=== PATIENT | male | born 1945 | race Caucasian/White ===

== ENCOUNTER → 2020-09-16 14:32 | Outpatient (BNVA) | payer MEDICARE, SELFPAY | PROVIDERS: PCP Internal Medicine; Referring Provider Internal Medicine; Visit Provider Internal Medicine Cardiovascular Disease | DX: I25.10 Atherosclerotic heart disease of native coronary artery without angina pectoris (principal) | CPT/HCPCS: 99212 ==

== ENCOUNTER 2020-10-09 08:50 | Outpatient (REF) | payer MEDICARE, SELFPAY ==
[2020-10-09 10:01] LABS: Alanine Aminotransferase 17 U/L (0-40); Albumin Level 3.6 g/dL (3.5-5.0); Alkaline Phosphatase 126 U/L (39-117); Anion Gap 14 (12-20); Aspartate Amino Transferase 15 U/L (5-37); Bilirubin Total 0.5 mg/dL (0.0-1.0); Blood Urea Nitrogen 12 mg/dL (9-16); Calcium 8.3 mg/dL (8.4-10.2); Carbon Dioxide 30 mmol/L (22-29); Chloride 103 mmol/L (96-108); Estimated Glomerular Filt Rate > 60; Glucose Random 110 mg/dL (60-115); Potassium 4.5 mmol/l (3.3-5.1); Sodium 142 mmol/L (135-145); Total Protein 5.9 g/dL (6.5-8.0); Uric Acid 4.9 mg/dL (3.4-7.0)
== END 2020-10-09 08:51 | disposition home or self-care (01) ==
LOC: HO.LAB 08:50
PROVIDERS: PCP Internal Medicine; Visit Provider Internal Medicine
DX: J44.9 Chronic obstructive pulmonary disease, unspecified (principal); I25.10 Atherosclerotic heart disease of native coronary artery without angina pectoris; I10 Essential (primary) hypertension; M10.9 Gout, unspecified
CPT/HCPCS: 80053; 84550

== ENCOUNTER → 2020-12-16 15:03 | Outpatient (BNVA) | payer MEDICARE, SELFPAY | PROVIDERS: PCP Internal Medicine; Visit Provider Internal Medicine Cardiovascular Disease | DX: I25.118 Atherosclerotic heart disease of native coronary artery with other forms of angina pectoris (principal); E66.9 Obesity, unspecified | CPT/HCPCS: 99212 ==

== ENCOUNTER 2021-03-19 11:02 | Outpatient (REF) | payer MEDICARE, SELFPAY ==
[2021-03-19 12:49] LABS: MANUAL DIFF FLAG NO
[2021-03-19 12:57] LABS: Basophils Percent Auto 0.5 % (0-2); Eosinophils Absolute Auto 0.2 X10*3/uL (0.0-0.4); Eosinophils Percent Auto 2.9 % (0-4); Hematocrit 41.5 % (42-52); Hemoglobin 12.9 g/dl (14.0-18.0); Imm Gran Abs Auto 0.01 X10*3/uL (0.00-0.03); Imm Gran Pct Auto 0.1 % (0.0-0.4); Lymphocytes Absolute Auto 1.7 X10*3/uL (1.2-4.9); Lymphocytes Percent Auto 23.1 % (20-40); Mean Corpuscular HGB Conc 31.1 g/dl (31.0-36.0); Mean Corpuscular Hemoglobin 26.9 pg (27.0-33.0); Mean Corpuscular Volume 86.5 fL (80-98); Mean Platelet Volume 10.6 fL (9.4-12.4); Monocytes Absolute Auto 0.6 X10*3/uL (0.1-1.2); Monocytes Percent Auto 7.5 % (2-11); Neutrophils Absolute Auto 4.9 X10*3/uL (2.0-8.3); Neutrophils Percent Auto 65.9 % (45-73); Platelet Count 202 X10*3/uL (160-400); Red Cell Distribution Width 13.9 % (11.0-16.0); White Blood Count 7.5 X10*3/uL (4.8-10.8)
[2021-03-19 13:08] LABS: Estimated Average Glucose 151 mg/dL; Hemoglobin A1c % 6.9 %
[2021-03-19 13:27] LABS: Alanine Aminotransferase 19 U/L (0-40); Albumin Level 3.5 g/dL (3.5-5.0); Alkaline Phosphatase 123 U/L (39-117); Anion Gap 12 (12-20); Aspartate Amino Transferase 19 U/L (5-37); Bilirubin Total 0.5 mg/dL (0.0-1.0); Blood Urea Nitrogen 22 mg/dL (9-16); Calcium 8.6 mg/dL (8.4-10.2); Carbon Dioxide 27 mmol/L (22-29); Chloride 106 mmol/L (96-108); Estimated Glomerular Filt Rate > 60; Glucose Random 213 mg/dL (60-115); Magnesium 1.8 mg/dL (1.6-2.6); Potassium 4.5 mmol/L (3.3-5.1); Sodium 140 mmol/L (135-145); Total Protein 5.7 g/dL (6.5-8.0)
[2021-03-19 13:41] LABS: Uric Acid 6.5 mg/dL (3.4-7.0)
== END 2021-03-19 11:03 | disposition home or self-care (01) ==
LOC: HO.10HDL 11:02
PROVIDERS: Visit Provider Internal Medicine
DX: R73.03 Prediabetes (principal); I25.10 Atherosclerotic heart disease of native coronary artery without angina pectoris; I10 Essential (primary) hypertension; M10.9 Gout, unspecified
CPT/HCPCS: 36415; 80053; 83036; 83735; 84550; 85025; 86140

== ENCOUNTER 2021-03-30 16:41 | Emergency (ER) | payer MEDICARE, SELFPAY ==
--- NOTE | 2021-03-30 | ECG_ITS ---
Test Reason : CP Blood Pressure : / mmHG Vent. Rate : 066 BPM Atrial Rate : 066 BPM P-R Int : 158 ms QRS Dur : 144 ms QT Int : 458 ms P-R-T Axes : 035 -34 020 degrees QTc Int : 480 ms Normal sinus rhythm Left axis deviation Right bundle branch block Abnormal ECG When compared with ECG of 08-NOV-2019 09:11, No significant change was found Referred By: Generic ED Physician Electronically Signed By:Paramjit Rios
--- NOTE | ~2021-03-30 | US_ITS ---
EXAMINATION: US VENOUS ULTRASOUND WITH DOPPLER LOWER EXTREMITY, BILATERAL CLINICAL INFORMATION: Bilateral edema and pain COMPARISON: None TECHNIQUE: Ultrasound of the deep veins is performed from the hip to the calf with compression sonography and color and pulse Doppler assessment. Spectral analysis with color-flow imaging is performed. FINDINGS: RIGHT: There is normal venous compression and respiratory variation and augmented flow. The visualized common femoral vein, superficial femoral vein, profunda femoral vein, popliteal vein, and the trifurcation region shows no evidence of deep venous thrombosis. There is no significant popliteal fossa cyst. LEFT: There is normal venous compression and respiratory variation and augmented flow. The visualized common femoral vein, superficial femoral vein, profunda femoral vein, popliteal vein, and the trifurcation region shows no evidence of deep venous thrombosis. There is no significant popliteal fossa cyst. If the patient's symptoms persist, followup ultrasound in 5 days 7 days might be of value to exclude proximal propagation from a non-visualized calf vein. US/US venous duplex LE BI IMPRESSION: No DVT demonstrated in the bilateral lower extremity.
[2021-03-30 16:54] VITALS: BP 142/57; PULSE 68; RESP 18; TEMP 36.6; O2SAT 94; BMI 36.3
[2021-03-30 20:00] VITALS: BP 124/61; PULSE 64; RESP 11; O2SAT 95
--- NOTE | 2021-03-30 20:15 | ED.GENADULT ---
HPI - General Adult General Chief complaint: General Medical Stated complaint: numbness Time Seen by Provider: 03/30/21 19:38 Source: patient Mode of arrival: ambulatory Limitations: no limitations History of Present Illness HPI narrative: Patient with known sleep apnea, hypertension and chronic stable angina coronary artery disease cardiac catheterization in 06/03 showed three-vessel disease on medical treatment on Plavix and aspirin was driving down from [place] noticed stabbing pain with spasm in the chest in the arms in the leg started around 14:00 also noticed swelling of his legs for last 2 days patient has gained about 35 lb in last 1 year diagnosed with sleep apnea but never use CPAP. Patient denies any shortness of breath fever or chills Related Data Home Medications Medication Instructions Recorded Confirmed allopurinol 100 mg tablet 100 mg PO DAILY 09/16/20 12/16/20 amlodipine 5 mg tablet 5 mg PO DAILY 09/16/20 12/16/20 lisinopril 10 mg tablet 10 mg PO DAILY 09/16/20 12/16/20 nitroglycerin 0.4 mg sublingual 0.4 mg SUBLINGUAL 12/16/20 12/16/20 tablet Previous Rx's Medication Instructions Recorded omeprazole 20 mg capsule,delayed 20 mg PO DAILY #30 cap 09/16/20 release atorvastatin 40 mg tablet 40 mg PO DAILY #30 tab 12/04/20 clopidogrel 75 mg tablet 75 mg PO DAILY #30 tab 12/04/20 metoprolol succinate 100 mg 50 mg PO DAILY #30 tab 12/16/20 tablet,extended release 24 hr gabapentin [Neurontin] 300 mg PO BEDTIME #30 cap 03/30/21 hydrochlorothiazide 25 mg PO QAM #30 tab 03/30/21 Allergies Allergy/AdvReac Type Severity Reaction Status Date / Time aspirin [Aspirin] Allergy Unknown RECTAL Unverified 08/01/20 15:00 BLEEDING Aspirin Allergy Unknown Uncoded 07/04/20 00:00 Review of Systems Review of Systems: Constitutional : No Weight loss, No Fever, No Chills ENT/Mouth : No sore throat, No Rhinorrhea Eyes: No Eye Pain, No Swelling Cardiovascular : + Chest Pain, no palpitations Respiratory : No Cough, No Sputum, no shortness of breath Gastrointestinal : no Nausea, No Vomiting, No Diarrhea, No abdominal Pain, no black stools Genitourinary : No Dysuria, No Urinary Frequency Musculoskeletal : No joint pain, No Myalgias, No Joint Swelling Skin : No Skin Lesions, No rash Neuro : No Weakness, No Numbness, No Dizziness, No Headache Psych : No Anxiety/Panic, No Depression Heme/Lymph: No Bruising, No Lymphadenopathy Endocrine : No Polyuria, No Polydipsia All other systems reviewed and are negative [facility] Past Medical History Medical History CAD (coronary artery disease) Chronic stable angina HTN (hypertension) Hyperlipidemia Obesity MAYA (obstructive sleep apnea) Right bundle branch block (RBBB) on electrocardiogram (ECG) Surgical History History of basal cell carcinoma (BCC) excision History of carpal tunnel release History of eye surgery Hx laparoscopic cholecystectomy Hx of cardiac cath Hx of hernia repair Hx of spinal surgery Family History Family History Father CVD (cardiovascular disease) Mother CVD (cardiovascular disease) Brother CVD (cardiovascular disease) Social History Social History Alcohol intake: former Smoking Status: Former smoker Smoked in Last 30 Days: No Use of substances other than those prescribed or required for medical reasons: No Advance Directives: No Advance Directives Information Provided: No Physical Exam Vital Signs: Vital Signs: Last Vital Signs Temp 98 F 03/30/21 16:54 Pulse 70 03/30/21 22:00 Resp 13 03/30/21 22:00 BP 133/66 03/30/21 22:00 Pulse Ox 95 03/30/21 22:00 Body Mass Index 36.3 Appearance: Alert. Oriented X3. No acute distress. Eyes: PERRLA, No Nystagmus ENT: Pharynx normal. Oral Mucosa moist Neck: Normal inspection. Neck supple. CVS: Normal heart rate and rhythm. Pulses normal. Respiratory: No respiratory distress. Equal air entry bilateral, no wheezing/rales/rhonchi Abdomen: Soft and nontender. Bowel sounds are present, no mass palpable, no CVA tenderness Skin: Skin warm and dry. Normal skin color. Normal skin turgor. Extremities: 2+ lower extremity edema. No calf tenderness Neuro: Oriented X 3. No motor deficit. No sensory deficit.No cerebellar signs , cranial nerves II-XII intact Medical Decision Making MDM Narrative Medical decision making narrative: Patient with increased leg swelling likely from standing and driving for long hours venous Doppler is negative BNP is normal lungs are clear patient not in CHF. Will discharge patient home on hydrochlorothiazide also will give him gabapentin for his neuropathy which is going on for long time Lab Data Lab results reviewed: Yes I reviewed the patient's lab results. Result diagrams: 03/30/21 20:23 03/30/21 20: Labs: Lab Results 03/30/21 03/30/21 03/30/21 Range/Units 20:23 20:23 20:23 WBC 7.3 (4.8-10.8) X10*3/uL RBC 4.55 L (4.60-5.80) X10*6/uL Hgb 12.3 L (14.0-18.0) g/dl Hct 39.9 L (42-52) % MCV 87.7 (80-98) fL MCH 27.0 (27.0-33.0) pg MCHC 30.8 L (31.0-36.0) g/dl RDW 14.3 (11.0-16.0) % Plt Count 172 (160-400) X10*3/uL MPV 10.1 (9.4-12.4) fL Immature Gran % (Auto) 0.3 (0.0-0.4) % Neut % (Auto) 63.4 (45-73) % Lymph % (Auto) 24.6 (20-40) % [place] % (Auto) 8.1 (2-11) % Eos % (Auto) 3.2 (0-4) % Baso % (Auto) 0.4 (0-2) % Lymph # (Auto) 1.8 (1.2-4.9) X10*3/uL [place] # (Auto) 0.6 (0.1-1.2) X10*3/uL Eos # (Auto) 0.2 (0.0-0.4) X10*3/uL Baso # (Auto) 0.0 (0.0-0.2) X10*3/uL Abs Immat Gran (auto) 0.02 (0.00-0.03) X10*3/uL Absolute Neuts (auto) 4.6 (2.0-8.3) X10*3/uL Absolute Nucleated RBC 0.000 (0.0-0.012) X10*3/uL Nucleated RBC % (auto) 0.0 (0.0-0.2) /100WBC PT 13.0 (10.8-13.0) SEC INR 1.1 (0.9-1.1) D-Dimer 217 NG/ML VBG pH (7.32-7.43) VBG pCO2 mmHg VBG pO2 mmHg VBG HCO3 (22-26) mmol/L VBG O2 Saturation % VBG Base Excess mmol/L Sodium 144 (135-145) mmol/L Potassium 4.2 (3.3-5.1) mmol/L Chloride 108 (96-108) mmol/L Carbon Dioxide 27 (22-29) mmol/L Anion Gap 13 (12-20) BUN 18 H (9-16) mg/dL Creatinine 0.85 (0.5-1.4) mg/dL Estim Creat Clear Calc 93.8 Estimated GFR > 60 Random Glucose 95 D (60-115) mg/dL Calcium 8.2 L (8.4-10.2) mg/dL Magnesium 1.8 (1.6-2.6) mg/dL Total Bilirubin 0.4 (0.0-1.0) mg/dL Direct Bilirubin 0.3 (0.0-0.5) mg/dL AST 27 D (5-37) U/L ALT 25 (0-40) U/L Alkaline Phosphatase 129 H (39-117) U/L Troponin I High Sens (<3.5-35.0) ng/L B-Natriuretic Peptide (<100) pg/mL Total Protein 5.7 L (6.5-8.0) g/dL Albumin 3.6 (3.5-5.0) g/dL 03/30/21 03/30/21 03/30/21 Range/Units 20:23 20:23 20:31 WBC (4.8-10.8) X10*3/uL RBC (4.60-5.80) X10*6/uL Hgb (14.0-18.0) g/dl Hct (42-52) % MCV (80-98) fL MCH (27.0-33.0) pg MCHC (31.0-36.0) g/dl RDW (11.0-16.0) % Plt Count (160-400) X10*3/uL MPV (9.4-12.4) fL Immature Gran % (Auto) (0.0-0.4) % Neut % (Auto) (45-73) % Lymph % (Auto) (20-40) % [place] % (Auto) (2-11) % Eos % (Auto) (0-4) % Baso % (Auto) (0-2) % Lymph # (Auto) (1.2-4.9) X10*3/uL [place] # (Auto) (0.1-1.2) X10*3/uL Eos # (Auto) (0.0-0.4) X10*3/uL Baso # (Auto) (0.0-0.2) X10*3/uL Abs Immat Gran (auto) (0.00-0.03) X10*3/uL Absolute Neuts (auto) (2.0-8.3) X10*3/uL Absolute Nucleated RBC (0.0-0.012) X10*3/uL Nucleated RBC % (auto) (0.0-0.2) /100WBC PT (10.8-13.0) SEC INR (0.9-1.1) D-Dimer NG/ML VBG pH 7.35 (7.32-7.43) VBG pCO2 57 mmHg VBG pO2 50 mmHg VBG HCO3 32 H (22-26) mmol/L VBG O2 Saturation 77.0 % VBG Base Excess 5.1 mmol/L Sodium (135-145) mmol/L Potassium (3.3-5.1) mmol/L Chloride (96-108) mmol/L Carbon Dioxide (22-29) mmol/L Anion Gap (12-20) BUN (9-16) mg/dL Creatinine (0.5-1.4) mg/dL Estim Creat Clear Calc Estimated GFR Random Glucose (60-115) mg/dL Calcium (8.4-10.2) mg/dL Magnesium (1.6-2.6) mg/dL Total Bilirubin (0.0-1.0) mg/dL Direct Bilirubin (0.0-0.5) mg/dL AST (5-37) U/L ALT (0-40) U/L Alkaline Phosphatase (39-117) U/L Troponin I High Sens 4.1 (<3.5-35.0) ng/L B-Natriuretic Peptide 83 (<100) pg/mL Total Protein (6.5-8.0) g/dL Albumin (3.5-5.0) g/dL ECG Data Interpretation: Heart rate 66 beats per minute left axis deviation right bundle-branch block no acute ST T wave changes no acute ischemia and no change from the previous EKG Discharge Plan Discharge Clinical Impression: Leg edema Patient Disposition: Home, Self-Care Instructions: Peripheral Neuropathy (ED), Leg Edema (ED) Additional Instructions: Keep your legs elevated Water pill daily in the morning as advised for severe swelling Take Medicine for neuropathy as prescribed Follow with cardiology/PCP Prescriptions: New gabapentin [Neurontin] 300 mg capsule 300 mg PO BEDTIME Qty: 30 RF: 0 hydrochlorothiazide 25 mg tablet 25 mg PO QAM Qty: 30 RF: 0 No Action atorvastatin 40 mg tablet 40 mg PO DAILY Qty: 30 RF: 3 clopidogrel 75 mg tablet 75 mg PO DAILY Qty: 30 RF: 3 allopurinol 100 mg tablet 100 mg PO DAILY RF: 0 lisinopril 10 mg tablet 10 mg PO DAILY RF: 0 amlodipine 5 mg tablet 5 mg PO DAILY RF: 0 omeprazole 20 mg capsule,delayed release(DR/EC) 20 mg PO DAILY Qty: 30 RF: 2 nitroglycerin 0.4 mg tablet, sublingual 0.4 mg sublingual RF: 0 metoprolol succinate 100 mg tablet extended release 24 hr 50 mg PO DAILY Qty: 30 RF: 3 Interventions: ED Discharge Assessment Last Done: 03/30/21 22:56 Discharge Date/Time: 03/30/21 22:56
[2021-03-30 20:27] LABS: MANUAL DIFF FLAG NO
[2021-03-30 20:30] LABS: Basophils Percent Auto 0.4 % (0-2); Eosinophils Absolute Auto 0.2 X10*3/uL (0.0-0.4); Eosinophils Percent Auto 3.2 % (0-4); Hematocrit 39.9 % (42-52); Hemoglobin 12.3 g/dl (14.0-18.0); Imm Gran Abs Auto 0.02 X10*3/uL (0.00-0.03); Imm Gran Pct Auto 0.3 % (0.0-0.4); Lymphocytes Absolute Auto 1.8 X10*3/uL (1.2-4.9); Lymphocytes Percent Auto 24.6 % (20-40); Mean Corpuscular HGB Conc 30.8 g/dl (31.0-36.0); Mean Corpuscular Volume 87.7 fL (80-98); Mean Platelet Volume 10.1 fL (9.4-12.4); Monocytes Absolute Auto 0.6 X10*3/uL (0.1-1.2); Monocytes Percent Auto 8.1 % (2-11); Neutrophils Absolute Auto 4.6 X10*3/uL (2.0-8.3); Neutrophils Percent Auto 63.4 % (45-73); Platelet Count 172 X10*3/uL (160-400); Red Blood Count 4.55 X10*6/uL (4.60-5.80); Red Cell Distribution Width 14.3 % (11.0-16.0); White Blood Count 7.3 X10*3/uL (4.8-10.8)
[2021-03-30 20:37] LABS: Venous Blood Gas Refer to POC result
[2021-03-30 20:37] LABS: VBG Base Excess 5.1 mmol/L; VBG HCO3 32 mmol/L (22-26); VBG pCO2 57 mmHg; VBG pH 7.35 (7.32-7.43); VBG pO2 50 mmHg
[2021-03-30 20:52] LABS: Alanine Aminotransferase 25 U/L (0-40); Albumin Level 3.6 g/dL (3.5-5.0); Alkaline Phosphatase 129 U/L (39-117); Anion Gap 13 (12-20); Aspartate Amino Transferase 27 U/L (5-37); Bilirubin Direct 0.3 mg/dL (0.0-0.5); Bilirubin Total 0.4 mg/dL (0.0-1.0); Blood Urea Nitrogen 18 mg/dL (9-16); Calcium 8.2 mg/dL (8.4-10.2); Carbon Dioxide 27 mmol/L (22-29); Chloride 108 mmol/L (96-108); Creatinine Clr Calc Pharmacy 93.8; Estimated Glomerular Filt Rate > 60; Glucose Random 95 mg/dL (60-115); Magnesium 1.8 mg/dL (1.6-2.6); Potassium 4.2 mmol/L (3.3-5.1); Sodium 144 mmol/L (135-145); Total Protein 5.7 g/dL (6.5-8.0)
[2021-03-30 20:54] LABS: Troponin-I High Sensitivity 4.1 ng/L (<3.5-35.0)
[2021-03-30 20:55] LABS: B Type Natriuretic Peptide 83 pg/mL (<100)
[2021-03-30 20:56] LABS: INTERNATIONAL NORM RATIO 1.1 (0.9-1.1)
[2021-03-30 20:59] LABS: D Dimer 217 NG/ML
[2021-03-30 22:00] VITALS: BP 133/66; PULSE 70; RESP 13; O2SAT 95
== END 2021-03-30 22:56 | disposition home or self-care (01) ==
PROVIDERS: Emergency Provider Internal Medicine; PCP Internal Medicine
DX: R60.0 Localized edema (principal); R20.0 Anesthesia of skin; I10 Essential (primary) hypertension; G47.30 Sleep apnea, unspecified; Z79.899 Other long term (current) drug therapy; Z87.891 Personal history of nicotine dependence
CPT/HCPCS: 36415; 80048; 80076; 83735; 83880; 84484; 85025; 85379; 85610; 93005; 93970; 99285

== ENCOUNTER 2021-04-11 | Outpatient (REF) | payer MEDICARE, SELFPAY | END 2021-04-11 00:01 | disposition home or self-care (01) | LOC: HO.CLN | PROVIDERS: PCP Internal Medicine; Visit Provider Internal Medicine | DX: Z13.89 Encounter for screening for other disorder (principal) ==

== ENCOUNTER 2021-04-30 16:15 | Outpatient (REF) | payer MEDICARE, SELFPAY ==
[2021-04-30 16:40] VITALS: BMI 36.4
[2021-04-30 16:44] LABS: MANUAL DIFF FLAG NO
[2021-04-30 16:51] LABS: Basophils Absolute Auto 0.1 X10*3/uL (0.0-0.2); Basophils Percent Auto 0.6 % (0-2); Eosinophils Absolute Auto 0.3 X10*3/uL (0.0-0.4); Eosinophils Percent Auto 3.6 % (0-4); Hematocrit 40.2 % (42-52); Hemoglobin 12.7 g/dl (14.0-18.0); Imm Gran Abs Auto 0.03 X10*3/uL (0.00-0.03); Imm Gran Pct Auto 0.3 % (0.0-0.4); Lymphocytes Absolute Auto 2.1 X10*3/uL (1.2-4.9); Lymphocytes Percent Auto 23.7 % (20-40); Mean Corpuscular HGB Conc 31.6 g/dl (31.0-36.0); Mean Corpuscular Hemoglobin 26.9 pg (27.0-33.0); Mean Corpuscular Volume 85.2 fL (80-98); Mean Platelet Volume 10.8 fL (9.4-12.4); Monocytes Absolute Auto 0.7 X10*3/uL (0.1-1.2); Monocytes Percent Auto 7.8 % (2-11); Neutrophils Absolute Auto 5.7 X10*3/uL (2.0-8.3); Platelet Count 199 X10*3/uL (160-400); Red Blood Count 4.72 X10*6/uL (4.60-5.80); Red Cell Distribution Width 14.5 % (11.0-16.0); White Blood Count 8.9 X10*3/uL (4.8-10.8)
[2021-04-30 17:02] LABS: Estimated Average Glucose 151 mg/dL; Hemoglobin A1c % 6.9 %
[2021-04-30 17:23] LABS: Alanine Aminotransferase 21 U/L (0-40); Albumin Level 3.7 g/dL (3.5-5.0); Alkaline Phosphatase 108 U/L (39-117); Anion Gap 12 (12-20); Aspartate Amino Transferase 22 U/L (5-37); Bilirubin Total 0.3 mg/dL (0.0-1.0); Blood Urea Nitrogen 31 mg/dL (9-16); C Reactive Protein 0.05 mg/dL (< or = 0.50); Calcium 8.9 mg/dL (8.4-10.2); Carbon Dioxide 25 mmol/L (22-29); Chloride 109 mmol/L (96-108); Estimated Glomerular Filt Rate 60; Glucose Random 124 mg/dL (60-115); Potassium 4.7 mmol/L (3.3-5.1); Sodium 141 mmol/L (135-145); Total Protein 5.9 g/dL (6.5-8.0)
[2021-04-30 17:26] LABS: B Type Natriuretic Peptide 20 pg/mL (<100)
[2021-04-30 17:45] LABS: Free T4 (Free Thyroxine) 0.75 ng/dL (0.71-1.85)
[2021-04-30 17:48] LABS: Vitamin B12 390 pg/mL (200-900)
== END 2021-04-30 16:16 | disposition home or self-care (01) ==
LOC: HO.LAB 16:15
PROVIDERS: PCP Internal Medicine; Visit Provider Internal Medicine
DX: I25.10 Atherosclerotic heart disease of native coronary artery without angina pectoris (principal); I10 Essential (primary) hypertension; M10.9 Gout, unspecified; E11.40 Type 2 diabetes mellitus with diabetic neuropathy, unspecified
CPT/HCPCS: 36415; 80053; 82607; 83036; 83880; 84439; 84443; 85025; 86140

== ENCOUNTER 2021-07-15 08:17 | Outpatient (REF) | payer MEDICARE, SELFPAY ==
--- NOTE | ~2021-07-15 | US_ITS ---
EXAMINATION: US RETROPERITONEAL LIMITED (AORTA) CLINICAL INFORMATION: Atherosclerotic heart disease, PVD, rule out abdominal aortic aneurysm. COMPARISON: CT abdomen 04/27/2017. TECHNIQUE: Hurley-scale, color Doppler and spectral Doppler evaluation of the abdominal aorta. FINDINGS: The measurements of the aorta in maximum AP and transverse dimensions respectively are as follows: Proximal: 2.9 x 2.8 cm. Mid: 2.4 x 2.3 cm. Distal: 3.3 x 3.4 cm. PSV: 156 cm/s. The measurements of the common iliac arteries in maximum AP and TRV dimensions are as follows: Right Common Iliac Artery: 1.2 x 1.5 cm. Left Common Iliac Artery: 1.3 x 1.5 cm. US/US abdominal aortic aneurysm IMPRESSION: Infrarenal abdominal aortic aneurysm measuring 3.4 cm. This measured 3.2 cm on 04/27/2017. Recommend follow-up every 3 years. Reference: J Am Anat Radiol 2013;10 (10):789-794
[2021-07-15 09:49] LABS: Glucose Urine UA NEG (NEG); Leukocyte Esterase Urine 1+ (NEG); Nitrite Urine POS (NEG); Urine Blood 2+ (NEG); Urine Ketones NEG (NEG); Urine Protein 2+ MG/DL (NEG-TRACE)
[2021-07-15 09:50] LABS: MANUAL DIFF FLAG NO
[2021-07-15 09:52] LABS: Basophils Percent Auto 0.4 % (0-2); Eosinophils Absolute Auto 0.2 X10*3/uL (0.0-0.4); Eosinophils Percent Auto 2.3 % (0-4); Hematocrit 41.6 % (42-52); Hemoglobin 12.7 g/dl (14.0-18.0); Imm Gran Abs Auto 0.03 X10*3/uL (0.00-0.03); Imm Gran Pct Auto 0.4 % (0.0-0.4); Lymphocytes Absolute Auto 1.6 X10*3/uL (1.2-4.9); Lymphocytes Percent Auto 18.6 % (20-40); Mean Corpuscular HGB Conc 30.5 g/dl (31.0-36.0); Mean Corpuscular Hemoglobin 26.8 pg (27.0-33.0); Mean Corpuscular Volume 87.8 fL (80-98); Mean Platelet Volume 10.3 fL (9.4-12.4); Monocytes Absolute Auto 0.8 X10*3/uL (0.1-1.2); Monocytes Percent Auto 8.8 % (2-11); Neutrophils Absolute Auto 5.9 X10*3/uL (2.0-8.3); Neutrophils Percent Auto 69.5 % (45-73); Platelet Count 230 X10*3/uL (160-400); Red Blood Count 4.74 X10*6/uL (4.60-5.80); Red Cell Distribution Width 13.6 % (11.0-16.0); White Blood Count 8.5 X10*3/uL (4.8-10.8)
[2021-07-15 09:54] LABS: Appearance Urine HAZY; Color Urine YELLOW
[2021-07-15 10:09] LABS: Bacteria Urine 1+ /LPF
[2021-07-15 10:23] LABS: Alanine Aminotransferase 11 U/L (0-40); Albumin Level 3.5 g/dL (3.5-5.0); Alkaline Phosphatase 132 U/L (39-117); Anion Gap 12 (12-20); Aspartate Amino Transferase 16 U/L (5-37); Bilirubin Total 0.7 mg/dL (0.0-1.0); Blood Urea Nitrogen 18 mg/dL (9-16); Calcium 8.7 mg/dL (8.4-10.2); Carbon Dioxide 30 mmol/L (22-29); Chloride 104 mmol/L (96-108); Cholesterol 116 mg/dL; Estimated Glomerular Filt Rate > 60; Glucose Fasting 122 mg/dL (60-99); HDL Cholesterol 25 mg/dL; LDL Cholesterol Calculated 65 mg/dl; Potassium 4.5 mmol/L (3.3-5.1); Sodium 141 mmol/L (135-145); Total Protein 5.8 g/dL (6.5-8.0); Triglycerides 134 mg/dL
[2021-07-15 10:25] LABS: Creatinine Urine 92.25 mg/dL
[2021-07-15 10:42] LABS: Microalbum/Creatinine Ratio Ur 1137.1 ug/mg cr
[2021-07-15 11:00] LABS: Vitamin B12 324 pg/mL (200-900)
[2021-07-15 12:49] LABS: Prostate Specific Antigen < 0.05 ng/mL (<0.05-4.0)
[2021-07-15 14:30] LABS: Estimated Average Glucose 137 mg/dL; Hemoglobin A1C 152.0909 umol/L; Hemoglobin A1c % 6.4 %
== END 2021-07-15 08:18 | disposition home or self-care (01) ==
LOC: HO.US 08:17
PROVIDERS: PCP Internal Medicine; Visit Provider Internal Medicine
DX: Z12.5 Encounter for screening for malignant neoplasm of prostate (principal); I25.10 Atherosclerotic heart disease of native coronary artery without angina pectoris; I73.9 Peripheral vascular disease, unspecified; E78.00 Pure hypercholesterolemia, unspecified; I10 Essential (primary) hypertension; E11.9 Type 2 diabetes mellitus without complications; J44.9 Chronic obstructive pulmonary disease, unspecified; E53.8 Deficiency of other specified B group vitamins
CPT/HCPCS: 36415; 76706; 80053; 80061; 81001; 82043; 82607; 83036; 84153; 85025

== ENCOUNTER → 2021-07-15 09:50 | Outpatient (BNVA) | payer SELFPAY | PROVIDERS: PCP Internal Medicine; Visit Provider Internal Medicine | DX: Z02.79 Encounter for issue of other medical certificate (principal) ==

== ENCOUNTER 2021-07-16 16:56 | Inpatient (IN) | payer MEDICARE, SELFPAY ==
--- NOTE | ~2021-07-16 | CT_ITS ---
EXAMINATION: CT ABDOMEN AND PELVIS WITHOUT CONTRAST CLINICAL INFORMATION: flank pain, +uti, eval for pyelo or stone . COMPARISON: No pertinent prior studies are available for comparison. TECHNIQUE: Multidetector volumetric imaging was performed from the superior aspect of the liver through the pubic symphysis without contrast per renal stone protocol. Sagittal and coronal reformatted images were obtained on the technologist workstation. This CT examination was performed using dose optimization techniques as appropriate, variously including the following: *Automated exposure control *Adjustment of mA and/or kV according to patient size (this includes techniques or standardized protocols for targeted exams where dose is matched to indication/reason for exam; i.e. extremities or head) *Use of iterative reconstruction technique DLP: 859 mGy-cm. FINDINGS: LUNG BASES: Minimal linear scarring or atelectasis bilaterally. Coronary artery calcifications seen. Surgical clips in the region of the GE junction. LIVER, GALLBLADDER, BILIARY TREE: The non-contrast liver is normal in size, shape, and attenuation. No focal hepatic lesion or biliary ductal dilatation is present. Gallbladder is not surgically absent. PANCREAS: Atrophic changes to the pancreas but no peripancreatic inflammatory changes or fluid at this time. SPLEEN: Unremarkable. ADRENAL GLANDS: Unremarkable. KIDNEYS AND URETERS: Mild fullness of the right collecting system and right ureter but I do not appreciate any ureteric calculi at this time. Recently passed ureteric calcification could have this appearance. There are tiny nonobstructing intrarenal calculi seen within the right collecting system. Bilateral renal cysts are noted. BLADDER: Decompressed but otherwise unremarkable. No obvious bladder calculi GASTROINTESTINAL TRACT: Scattered diverticulosis more so in the sigmoid colon. I do not appreciate any colonic wall thickening or focal pericolonic inflammatory change to suggest diverticulitis. Normal-appearing appendix. Visualized small bowel unremarkable. ABDOMINAL WALL: Tiny fat-containing umbilical hernia LYMPHOVASCULAR STRUCTURES: Extensive vascular calcification within the aorta iliac system. Focal infrarenal abdominal aortic aneurysm measuring up to 3.4 cm in size slightly increased from 3.2 cm in similar orientation on the 04/27/2017 study. PELVIC VISCERA: Likely status post prostatectomy. OSSEUS STRUCTURES: Multilevel degenerative changes in the spine. CT/CT abdomen pelvis wo con IMPRESSION: There is mild fullness to the right collecting system and right ureter with mild periureteric stranding but no obvious obstructive changes or ureteric calcifications at this time. Recently passed ureteric calculi could have this appearance and could be clinically correlated. Tiny punctate intrarenal calculi incidentally seen in the right kidney likely system. Chronic appearing and postoperative changes otherwise as described.
[2021-07-16 17:21] VITALS: BP 137/59; PULSE 97; RESP 16; TEMP 39.4; O2SAT 98; BMI 38.0
[2021-07-16] MEDS: Acetaminophen 325 MG TABLET 650 MG PO (17:28)
--- NOTE | 2021-07-16 18:32 | ED.MALEGU ---
HPI - Male Genitourinary General Chief complaint: Urogenital-Male Stated complaint: uti? Time Seen by Provider: 07/16/21 18:15 Source: patient and family Mode of arrival: ambulatory Limitations: no limitations History of Present Illness HPI Narrative: 76-year-old male with a past medical history of hypertension, hyperlipidemia, obesity, coronary artery disease on Plavix, gerd here with complaints of urinary frequency, burning, mid to low back pain, fever with chills for 24 hours. Related Data Home Medications Medication Instructions Recorded Confirmed allopurinol 100 mg tablet 100 mg PO DAILY 09/16/20 07/16/21 lisinopril 10 mg tablet 10 mg PO DAILY 09/16/20 07/16/21 atorvastatin 40 mg tablet 40 mg PO DAILY@1700 07/16/21 07/16/21 cyanocobalamin (vitamin B-12) 1,000 mcg PO DAILY 07/16/21 07/16/21 1,000 mcg tablet lorazepam 0.5 mg tablet 1 tab PO BEDTIME PRN 07/16/21 07/16/21 melatonin 10 mg tablet 10 mg PO BEDTIME 07/16/21 07/16/21 nitroglycerin 0.4 mg sublingual 0.4 mg SUBLINGUAL Q5M PRN 07/16/21 07/16/21 tablet omeprazole 20 mg capsule,delayed 20 mg PO BID@0630,1630 PRN 07/16/21 07/16/21 release Previous Rx's Medication Instructions Recorded gabapentin 300 mg capsule 300 mg PO BEDTIME #30 cap 03/30/21 (Neurontin) metoprolol succinate 100 mg 50 mg PO DAILY 90 Days #45 tab 04/17/21 tablet,extended release 24 hr clopidogrel 75 mg tablet 75 mg PO DAILY #30 tab 05/12/21 amlodipine 5 mg tablet 5 mg PO DAILY 90 Days #90 tab 06/10/21 Allergies Allergy/AdvReac Type Severity Reaction Status Date / Time aspirin [Aspirin] Allergy Unknown RECTAL Unverified 08/01/20 15:00 BLEEDING Aspirin Allergy Unknown Uncoded 07/04/20 00:00 Review of Systems Review of Systems: Yes all other systems are reviewed and are negative Constitutional: Constitutional: Reports no additional constitutional complaints, Reports body ache(s), Reports chills, Reports fever(s), Denies headache(s) and Denies weakness Eyes: Eyes: Reports no additional eye complaints and Denies change in vision ENT: Reports system reviewed and no additional complaints, except as documented, Denies dizziness, Denies headache(s), Denies nasal congestion, Denies nasal discharge and Denies neck pain Cardiovascular: Cardiovascular: Reports no additional cardiovascular complaints, Denies chest pain, Denies leg edema and Denies dyspnea Respiratory: Respiratory: Reports no additional respiratory complaints, Denies cough and Denies dyspnea Gastrointestinal: Gastrointestinal: Reports no additional gastrointestinal complaints, Denies abdominal pain, Denies diarrhea, Denies nausea and Denies vomiting Genitourinary: Genitourinary: Reports urinary frequency, Denies urinary incontinence and Reports urinary urgency Musculoskeletal: Musculoskeletal: Reports no additional musculoskeletal complaints, Reports back pain, Denies arthralgias, Denies joint swelling, Denies neck pain, Denies numbness and Denies tingling Integumentary/Breasts: Skin/Breast: Reports system reviewed and no additional complaints, except as docu and Denies rash Neurologic: Reports system reviewed and no additional complaints, except as documented, Denies Abnormal speech present, Denies dizziness, Denies headache(s), Denies numbness, Denies tingling and Denies weakness PMFSH Past Medical History Attestation statement: The following information was validated with the patient. Source: old records reviewed and nursing notes reviewed Medical History CAD (coronary artery disease) Chronic stable angina HTN (hypertension) Hyperlipidemia Obesity MAYA (obstructive sleep apnea) Right bundle branch block (RBBB) on electrocardiogram (ECG) Surgical History History of basal cell carcinoma (BCC) excision History of carpal tunnel release History of eye surgery Hx laparoscopic cholecystectomy Hx of cardiac cath Hx of hernia repair Hx of spinal surgery Family History Family History Father CVD (cardiovascular disease) Mother CVD (cardiovascular disease) Brother CVD (cardiovascular disease) Social History Social History Alcohol intake: former Advance Directives: No Advance Directives Information Provided: Yes service: No Current occupational status: retired Physical Exam Vital Signs: Vital Signs: Last Vital Signs Temp 100.3 F 07/16/21 18:54 Pulse 87 07/16/21 18:54 Resp 20 07/16/21 18:54 BP 106/51 L 07/16/21 18:57 Pulse Ox 92 07/16/21 18:54 Body Mass Index 38.0 Const: General: cooperative, healthy appearing, comfortable and no acute distress Orientation/consciousness: patient oriented x3 Limitations: no limitations HENMT: Head: Yes normal to inspection Ears: hearing grossly normal bilaterally General nose exam: Normal external nose present Face and sinus: Yes normal facial exam Mouth: Normal oral and palatal mucosa present Throat: Yes posterior oropharynx normal Eyes: General: appearance normal, both eyes and all related structures Pupils: Equal, round and reactive pupils present Neck: Neck: Yes normal visual inspection Chest: Chest palpation & inspection: normal inspection of the chest Resp: Effort & Inspection: normal respiratory effort Auscultation: clear to auscultation bilaterally Cardio: Rate: regular rate Rhythm: regular rhythm Peripheral pulses: Peripheral pulses 2+ throughout GI: Inspection: Yes normal to inspection Palpation (GI): Soft to palpation and nontender Auscultation: normal bowel sounds : General: Yes CVA tenderness (right) Back/Spine/Pelvis: Back: CVA tenderness (right) Thoracic/Lumbar Spine: thoracic and lumbar spine normal to inspection Skin: General skin exam: no rashes or lesions noted Neuro: General: patient oriented x3, no focal motor deficits and normal sensation to monofilament Cranial nerves: Yes Equal, round and reactive pupils present Cognition (Neuro): normal cognition Speech: No Abnormal speech present Gait exam (Neuro): Normal gait present Motor exam (neuro): 5/5 motor strength present throughout Extrem: General: Yes normal to inspection Course Course Course Narrative: 76-year-old male here with urinary symptoms of frequency and urgency with back pain, fever, chills and body aches for 24 hours. On arrival the patient is febrile 103. Received Tylenol at triage. Repeat temperature 100.9. Will need labs including blood cultures and lactic acid, UA, CT. At this time infection is suspected. Antibiotics ordered. 1954-labs show mild leukocytosis. CT shows a right-sided pyelonephritis. UA is consistent with UTI. Patient will require admission. 2014-discussed with Dr. Villagomez who accepted admission. MDM - Male Genitourinary MDM Narrative Medical decision making narrative: Renal colic Pyelonephritis Differential Diagnosis Differential diagnosis: Likely urinary tract infection Medical Records Attestation: I reviewed the patient's medical records. Lab Data Attestation: I reviewed the patient's lab results. Result diagrams: 07/16/21 18:51 07/16/21 18:51 Labs: Lab Results 07/16/21 07/16/21 07/16/21 Range/Units 18:51 18:51 18:51 WBC 12.1 H (4.8-10.8) X10*3/uL RBC 4.44 L (4.60-5.80) X10*6/uL Hgb 12.2 L (14.0-18.0) g/dl Hct 38.5 L (42-52) % MCV 86.7 (80-98) fL MCH 27.5 (27.0-33.0) pg MCHC 31.7 (31.0-36.0) g/dl RDW 13.5 (11.0-16.0) % Plt Count 242 (160-400) X10*3/uL MPV 9.8 (9.4-12.4) fL Immature Gran % (Auto) 0.4 (0.0-0.4) % Neut % (Auto) 75.8 H (45-73) % Lymph % (Auto) 13.9 L (20-40) % [place] % (Auto) 9.2 (2-11) % Eos % (Auto) 0.5 (0-4) % Baso % (Auto) 0.2 (0-2) % Lymph # (Auto) 1.7 (1.2-4.9) X10*3/uL [place] # (Auto) 1.1 (0.1-1.2) X10*3/uL Eos # (Auto) 0.1 (0.0-0.4) X10*3/uL Baso # (Auto) 0.0 (0.0-0.2) X10*3/uL Abs Immat Gran (auto) 0.05 H (0.00-0.03) X10*3/uL Absolute Neuts (auto) 9.2 H (2.0-8.3) X10*3/uL Absolute Nucleated RBC 0.000 (0.0-0.012) X10*3/uL Nucleated RBC % (auto) 0.0 (0.0-0.2) /100WBC Sodium 136 (135-145) mmol/L Potassium 4.7 (3.3-5.1) mmol/L Chloride 101 (96-108) mmol/L Carbon Dioxide 27 (22-29) mmol/L Anion Gap 13 (12-20) BUN 21 H (9-16) mg/dL Creatinine 1.02 (0.5-1.4) mg/dL Estim Creat Clear Calc 74.1 Estimated GFR > 60 Random Glucose 109 (60-115) mg/dL Lactic Acid 1.2 (0.5-2.0) mmol/L Calcium 8.4 (8.4-10.2) mg/dL Magnesium 1.9 (1.6-2.6) mg/dL Total Bilirubin 0.7 (0.0-1.0) mg/dL Direct Bilirubin 0.3 (0.0-0.5) mg/dL AST 16 (5-37) U/L ALT 12 (0-40) U/L Alkaline Phosphatase 117 (39-117) U/L Total Protein 5.8 L (6.5-8.0) g/dL Albumin 3.6 (3.5-5.0) g/dL Urine Color Urine Appearance Urine pH (5.0-8.0) Ur Specific [place] (1.005-1.025) Urine Protein (NEG-TRACE) MG/DL Urine Glucose (UA) (NEG) MG/DL Urine Ketones (NEG) MG/DL Urine Blood (NEG) Urine Nitrite (NEG) Ur Leukocyte Esterase (NEG) Urine RBC (0) /HPF Urine WBC (0-4) /HPF Ur Squamous Epith Cells /LPF Urine Bacteria /LPF COVID-19 ([facility]) (Negative) COVID-19 Clin Com 07/16/21 07/16/21 Range/Units 19:43 20:03 WBC (4.8-10.8) X10*3/uL RBC (4.60-5.80) X10*6/uL Hgb (14.0-18.0) g/dl Hct (42-52) % MCV (80-98) fL MCH (27.0-33.0) pg MCHC (31.0-36.0) g/dl RDW (11.0-16.0) % Plt Count (160-400) X10*3/uL MPV (9.4-12.4) fL Immature Gran % (Auto) (0.0-0.4) % Neut % (Auto) (45-73) % Lymph % (Auto) (20-40) % [place] % (Auto) (2-11) % Eos % (Auto) (0-4) % Baso % (Auto) (0-2) % Lymph # (Auto) (1.2-4.9) X10*3/uL [place] # (Auto) (0.1-1.2) X10*3/uL Eos # (Auto) (0.0-0.4) X10*3/uL Baso # (Auto) (0.0-0.2) X10*3/uL Abs Immat Gran (auto) (0.00-0.03) X10*3/uL Absolute Neuts (auto) (2.0-8.3) X10*3/uL Absolute Nucleated RBC (0.0-0.012) X10*3/uL Nucleated RBC % (auto) (0.0-0.2) /100WBC Sodium (135-145) mmol/L Potassium (3.3-5.1) mmol/L Chloride (96-108) mmol/L Carbon Dioxide (22-29) mmol/L Anion Gap (12-20) BUN (9-16) mg/dL Creatinine (0.5-1.4) mg/dL Estim Creat Clear Calc Estimated GFR Random Glucose (60-115) mg/dL Lactic Acid (0.5-2.0) mmol/L Calcium (8.4-10.2) mg/dL Magnesium (1.6-2.6) mg/dL Total Bilirubin (0.0-1.0) mg/dL Direct Bilirubin (0.0-0.5) mg/dL AST (5-37) U/L ALT (0-40) U/L Alkaline Phosphatase (39-117) U/L Total Protein (6.5-8.0) g/dL Albumin (3.5-5.0) g/dL Urine Color YELLOW Urine Appearance HAZY Urine pH 5.5 (5.0-8.0) Ur Specific [place] 1.020 (1.005-1.025) Urine Protein 1+ H (NEG-TRACE) MG/DL Urine Glucose (UA) NEG (NEG) MG/DL Urine Ketones NEG (NEG) MG/DL Urine Blood TRACE (NEG) Urine Nitrite NEG (NEG) Ur Leukocyte Esterase 1+ H (NEG) Urine RBC 0-2 (0) /HPF Urine WBC 5-9 H (0-4) /HPF Ur Squamous Epith Cells NONE /LPF Urine Bacteria 2+ /LPF COVID-19 ([facility]) Negative (Negative) COVID-19 Clin Com See Note Imaging Data CT scan - abdomen: Attestation: I personally reviewed and interpreted this imaging study as follows: Radiologist's impression: IMPRESSION: There is mild fullness to the right collecting system and right ureter with mild periureteric stranding but no obvious obstructive changes or ureteric calcifications at this time. Recently passed ureteric calculi could have this appearance and could be clinically correlated. Tiny punctate intrarenal calculi incidentally seen in the right kidney likely system. Chronic appearing and postoperative changes otherwise as described. Discharge Plan Discharge Clinical Impression: Pyelonephritis, Leukocytosis, Fever Patient Disposition: Admitted As Inpatient
[2021-07-16 18:54] VITALS: BP 97/47; PULSE 87; RESP 20; TEMP 37.9; O2SAT 92
[2021-07-16 18:57] VITALS: BP 106/51
[2021-07-16 19:03] LABS: MANUAL DIFF FLAG NO
[2021-07-16 19:05] LABS: Basophils Percent Auto 0.2 % (0-2); Eosinophils Absolute Auto 0.1 X10*3/uL (0.0-0.4); Eosinophils Percent Auto 0.5 % (0-4); Hematocrit 38.5 % (42-52); Hemoglobin 12.2 g/dl (14.0-18.0); Imm Gran Abs Auto 0.05 X10*3/uL (0.00-0.03); Imm Gran Pct Auto 0.4 % (0.0-0.4); Lymphocytes Absolute Auto 1.7 X10*3/uL (1.2-4.9); Lymphocytes Percent Auto 13.9 % (20-40); Mean Corpuscular HGB Conc 31.7 g/dl (31.0-36.0); Mean Corpuscular Hemoglobin 27.5 pg (27.0-33.0); Mean Corpuscular Volume 86.7 fL (80-98); Mean Platelet Volume 9.8 fL (9.4-12.4); Monocytes Absolute Auto 1.1 X10*3/uL (0.1-1.2); Monocytes Percent Auto 9.2 % (2-11); Neutrophils Absolute Auto 9.2 X10*3/uL (2.0-8.3); Neutrophils Percent Auto 75.8 % (45-73); Platelet Count 242 X10*3/uL (160-400); Red Blood Count 4.44 X10*6/uL (4.60-5.80); Red Cell Distribution Width 13.5 % (11.0-16.0); White Blood Count 12.1 X10*3/uL (4.8-10.8)
[2021-07-16 19:17] LABS: Lactic Acid 1.2 mmol/L (0.5-2.0)
[2021-07-16 19:23] LABS: Alanine Aminotransferase 12 U/L (0-40); Albumin Level 3.6 g/dL (3.5-5.0); Alkaline Phosphatase 117 U/L (39-117); Anion Gap 13 (12-20); Aspartate Amino Transferase 16 U/L (5-37); Bilirubin Direct 0.3 mg/dL (0.0-0.5); Bilirubin Total 0.7 mg/dL (0.0-1.0); Blood Urea Nitrogen 21 mg/dL (9-16); Calcium 8.4 mg/dL (8.4-10.2); Carbon Dioxide 27 mmol/L (22-29); Chloride 101 mmol/L (96-108); Creatinine Clr Calc Pharmacy 74.1; Estimated Glomerular Filt Rate > 60; Glucose Random 109 mg/dL (60-115); Magnesium 1.9 mg/dL (1.6-2.6); Potassium 4.7 mmol/L (3.3-5.1); Sodium 136 mmol/L (135-145); Total Protein 5.8 g/dL (6.5-8.0)
[2021-07-16] MEDS: 0.9 % Sodium Chloride 1,000 ML 999 ML IV (19:47)
[2021-07-16] MEDS: Morphine Sulfate 4 MG/ML CARTRIDGE IVPUSH (19:48)
[2021-07-16] MEDS: cefTRIAXone sodium 1 GM in 0.9 % Sodium Chloride 50 ML IV (19:49)
[2021-07-16 19:52] LABS: Glucose Urine UA NEG (NEG); Leukocyte Esterase Urine 1+ (NEG); Nitrite Urine NEG (NEG); PH 5.5 (5.0-8.0); UACC Culture Trigger YES; Urine Blood TRACE (NEG); Urine Ketones NEG (NEG); Urine Protein 1+ MG/DL (NEG-TRACE)
[2021-07-16 19:54] LABS: Appearance Urine HAZY; Color Urine YELLOW
[2021-07-16 19:57] LABS: Bacteria Urine 2+ /LPF; RBC Urine 0-2 /HPF (0)
[2021-07-16 20:35] LABS: COVID-19 Test Negative (Negative); IDNOW Serial# 08D9AD1C
--- NOTE | 2021-07-16 20:38 | PHA.MEDREC ---
Pharmacy Consult ? Medication Reconciliation Pharmacy has completed the medication reconciliation. Spoke with patient in ED.
[2021-07-16 21:00] VITALS: BP 107/53; PULSE 86; RESP 16; TEMP 37.4; O2SAT 91
--- NOTE | 2021-07-16 21:10 | PM.IMHP ---
History of Present Illness Date of Service: 07/16/21 Chief Complaint: Fever 76-year-old male with a past medical history Of hypertension, hyperlipidemia, coronary artery disease, obesity, obstructive sleep apnea presented to the hospital with a chief complaint of fever. Patient reports that over the past couple days he has been having fevers and chills and generalized body aches; also complains of urinary frequency and urgency; associated with right flank pain. Denies any blood in the urine. Denies any nausea vomiting diarrhea. Denies any cough or sputum production. Denies any chest pain palpitations lightheadedness or dizziness. Review of all other systems is negative except mentioned above ER course: Per ER team patient's COVID-19 was negative. Urinalysis done on 07/15/2021 was abnormal consistent with UTI. CT scan showed findings concerning for pyelonephritis. Patient was given ceftriaxone. Blood cultures have been sent. Admitted to the hospital for further management. [facility] Medical History CAD (coronary artery disease) Chronic stable angina HTN (hypertension) Hyperlipidemia Obesity MAYA (obstructive sleep apnea) Right bundle branch block (RBBB) on electrocardiogram (ECG) Family History Father CVD (cardiovascular disease) Mother CVD (cardiovascular disease) Brother CVD (cardiovascular disease) Surgical History History of basal cell carcinoma (BCC) excision History of carpal tunnel release History of eye surgery Hx laparoscopic cholecystectomy Hx of cardiac cath Hx of hernia repair Hx of spinal surgery Social History Alcohol intake: former Advance Directives: No Advance Directives Information Provided: Yes Meds Allergies Allergy/AdvReac Type Severity Reaction Status Date / Time aspirin [Aspirin] Allergy Unknown RECTAL Unverified 08/01/20 15:00 BLEEDING Aspirin Allergy Unknown Uncoded 07/04/20 00:00 Active Medications: Current Medications Generic Name Dose Route Start Last Admin Trade Name Freq PRN Reason Stop Dose Admin Acetaminophen 650 mg 07/16/21 21:07 Acetaminophen 325 Mg Tablet PO Q6H PRN Pain, Mild (Pain Scale 1-3) Ceftriaxone Sodium 1 gm/ 50 mls @ 100 mls/hr 07/17/21 19:00 Sodium Chloride IV Q24H SALMA Dextrose/Sodium Chloride 1,000 mls @ 100 mls/hr 07/16/21 21:15 D5ns IVCONT .Q10H [facility] Melatonin 6 mg 07/16/21 21:07 Melatonin 3 Mg Tablet PO BEDTIME PRN Insomnia Pharmacy Consult 1 each 07/16/21 19:51 Consult Rx Perform Med Rec MISCELLANE ONCE PRN Consult order Senna 17.2 mg 07/16/21 21:07 Sennosides 8.6 Mg Tablet PO BEDTIME PRN Constipation Sodium Chloride 3 ml 07/17/21 00:00 0.9 % Sodium Chloride Flush 3 Ml Syringe IVFLUSH QSHIFT [facility] Home Medications Medication Instructions Recorded Confirmed Last Taken Type allopurinol 100 mg tablet 100 mg PO DAILY 09/16/20 07/16/21 07/16/21 History lisinopril 10 mg tablet 10 mg PO DAILY 09/16/20 07/16/21 07/16/21 History atorvastatin 40 mg tablet 40 mg PO DAILY@1700 07/16/21 07/16/21 07/15/21 History cyanocobalamin (vitamin B-12) 1,000 mcg PO DAILY 07/16/21 07/16/21 07/16/21 History 1,000 mcg tablet lorazepam 0.5 mg tablet 1 tab PO BEDTIME PRN 07/16/21 07/16/21 Unknown History melatonin 10 mg tablet 10 mg PO BEDTIME 07/16/21 07/16/21 07/15/21 History nitroglycerin 0.4 mg sublingual 0.4 mg SUBLINGUAL Q5M PRN 07/16/21 07/16/21 Unknown History tablet omeprazole 20 mg capsule,delayed 20 mg PO BID@0630,1630 PRN 07/16/21 07/16/21 Unknown History release Physical Exam Vital Signs and Narrative: Vital Signs: Last Vital Signs Temp 100.3 F 07/16/21 18:54 Pulse 87 07/16/21 18:54 Resp 20 07/16/21 18:54 BP 106/51 L 07/16/21 18:57 Pulse Ox 92 07/16/21 18:54 Body Mass Index 38.0 Gen: Appears be in no acute distress HEENT: NCAT, Moist mucosa. Pulmonary: Vesicular breath sounds, fair air entry CVS: Normal S1-S2 Abdomen: BS+, Soft, Nontender; positive right CVA tenderness Extremities: Warm well perfused Neuro: Alert and awake. Results Labs CBC and Chem 7: 07/16/21 18:51 07/16/21 18:51 Labs: Laboratory Results - last 24 hr 07/16/21 07/16/21 07/16/21 18:51 18:51 18:51 MCV 86.7 MCH 27.5 MCHC 31.7 RDW 13.5 Plt Count 242 MPV 9.8 Immature Gran % (Auto) 0.4 Neut % (Auto) 75.8 H Lymph % (Auto) 13.9 L [place] % (Auto) 9.2 Eos % (Auto) 0.5 Baso % (Auto) 0.2 Lymph # (Auto) 1.7 [place] # (Auto) 1.1 Eos # (Auto) 0.1 Baso # (Auto) 0.0 Abs Immat Gran (auto) 0.05 H Absolute Neuts (auto) 9.2 H Absolute Nucleated RBC 0.000 Nucleated RBC % (auto) 0.0 Anion Gap 13 Estim Creat Clear Calc 74.1 Estimated GFR > 60 Random Glucose 109 Lactic Acid 1.2 Calcium 8.4 Magnesium 1.9 Total Bilirubin 0.7 Direct Bilirubin 0.3 AST 16 ALT 12 Alkaline Phosphatase 117 Total Protein 5.8 L Albumin 3.6 Urine Color Urine Appearance Urine pH Ur Specific [place] Urine Protein Urine Glucose (UA) Urine Ketones Urine Blood Urine Nitrite Ur Leukocyte Esterase Urine RBC Urine WBC Ur Squamous Epith Cells Urine Bacteria COVID-19 (LALA) COVID-19 Clin Com 07/16/21 07/16/21 19:43 20:03 MCV MCH MCHC RDW Plt Count MPV Immature Gran % (Auto) Neut % (Auto) Lymph % (Auto) [place] % (Auto) Eos % (Auto) Baso % (Auto) Lymph # (Auto) [place] # (Auto) Eos # (Auto) Baso # (Auto) Abs Immat Gran (auto) Absolute Neuts (auto) Absolute Nucleated RBC Nucleated RBC % (auto) Anion Gap Estim Creat Clear Calc Estimated GFR Random Glucose Lactic Acid Calcium Magnesium Total Bilirubin Direct Bilirubin AST ALT Alkaline Phosphatase Total Protein Albumin Urine Color YELLOW Urine Appearance HAZY Urine pH 5.5 Ur Specific [place] 1.020 Urine Protein 1+ H Urine Glucose (UA) NEG Urine Ketones NEG Urine Blood TRACE Urine Nitrite NEG Ur Leukocyte Esterase 1+ H Urine RBC 0-2 Urine WBC 5-9 H Ur Squamous Epith Cells NONE Urine Bacteria 2+ COVID-19 (LALA) Negative COVID-19 Clin Com See Note Imaging Radiologist's Impressions: Impressions Abdomen/Pelvis CT 07/16/21 18:32 IMPRESSION: There is mild fullness to the right collecting system and right ureter with mild periureteric stranding but no obvious obstructive changes or ureteric calcifications at this time. Recently passed ureteric calculi could have this appearance and could be clinically correlated. Tiny punctate intrarenal calculi incidentally seen in the right kidney likely system. Chronic appearing and postoperative changes otherwise as described. Assessment and Plan (1) Pyelonephritis: Status: Acute 76-year-old male with a past medical history of hypertension, hyperlipidemia, coronary artery disease, obesity, GERD, MAYA presented to the hospital with a chief complaint of fevers chills body aches right flank pain and urinary frequency and urgency-found to have pyelonephritis. Admitted for further management. Pyelonephritis: Continue ceftriaxone. Follow up cultures. Incidental finding of renal calculi. Currently no signs of obstruction or hydronephrosis. urology follow-up. History of hypertension/hyperlipidemia/CAD: Continue home medications. DVT prophylaxis: SCD boots Code status: Full code Quality Stroke Does the patient have a stroke diagnosis?: No VTE Prior VTE?: No VTE Risk Level:: Medical - moderate - high VTE Device Contraindication: N/A - Device Ordered VTE Drug Contraindication: Treatment Not Indicated
--- NOTE | 2021-07-16 21:25 | MHC.CM.PN ---
CM met with pt, pending admission. No bed assigned yet. Insurance verified: Medicare and [employer] [place] [employer]. IMM reviewed and signed per protocol 07/16/2021@2044. HCP reviewed, completed, and signed per protocol. Uploaded into [employer] and [facility]. HCP/Donal Monique ([phone]). Lives with S.O. Uses no DME or services. D/C plan is home without services. Transportation by family. CM to follow for d/c needs.
[2021-07-16] MEDS: Dextrose 5 % and 0.9 % NaCl 1,000 ML 100 ML IVCONT (21:48)
[2021-07-17] VITALS (11 sets, daily range): BP systolic 94–127; BP diastolic 50–62; PULSE 65–107; RESP 16–20; TEMP 36.8–37.7; O2SAT 90–96
[2021-07-17] MEDS: HYDROmorphone HCl 0.5 MG/0.5 ML SYRINGE IVPUSH ×2 (00:16→20:48)
--- NOTE | 2021-07-17 01:14 | PC.NURSE ---
WHILE TAKING THE LAST SET OF VITALS, AROUND 00:30, PT REPORTS HE HASN'T VOIDED IN ABOUT 4 HOURS. PT DID RECEIVE 1 L N.S. PT REPORTS HE HAS EXPERIENCED FREQUENT URINATION FOR THE PAST 2 DAYS.
--- NOTE | 2021-07-17 01:17 | PC.NURSE ---
PT ABLE TO VOID 200ML IN URINAL.
--- NOTE | 2021-07-17 01:17 | PC.NURSE ---
PT ON 2L NC DUE TO 88% ROOM AIR WHILE ASLEEP. REPORTED BY JERRY JOSUE.
[2021-07-17] MEDS: Melatonin 3 MG TABLET 6 MG PO (02:24)
[2021-07-17 03:42] LABS: D Dimer 477 NG/ML
[2021-07-17 03:53] LABS: Anion Gap 12 (12-20); Blood Urea Nitrogen 21 mg/dL (9-16); Calcium 7.9 mg/dL (8.4-10.2); Carbon Dioxide 26 mmol/L (22-29); Chloride 104 mmol/L (96-108); Creatinine Clr Calc Pharmacy 69.9; Estimated Glomerular Filt Rate > 60; Glucose Random 149 mg/dL (60-115); Potassium 4.2 mmol/L (3.3-5.1); Sodium 138 mmol/L (135-145)
[2021-07-17 04:38] LABS: Basophils Percent Auto 0.3 % (0-2); Eosinophils Absolute Auto 0.1 X10*3/uL (0.0-0.4); Eosinophils Percent Auto 0.8 % (0-4); Hemoglobin 11.8 g/dl (14.0-18.0); Imm Gran Abs Auto 0.03 X10*3/uL (0.00-0.03); Imm Gran Pct Auto 0.3 % (0.0-0.4); Lymphocytes Absolute Auto 2.1 X10*3/uL (1.2-4.9); Lymphocytes Percent Auto 17.7 % (20-40); Mean Corpuscular HGB Conc 31.1 g/dl (31.0-36.0); Mean Corpuscular Hemoglobin 27.6 pg (27.0-33.0); Mean Corpuscular Volume 88.8 fL (80-98); Mean Platelet Volume 9.6 fL (9.4-12.4); Monocytes Absolute Auto 1.4 X10*3/uL (0.1-1.2); Monocytes Percent Auto 11.5 % (2-11); Neutrophils Absolute Auto 8.3 X10*3/uL (2.0-8.3); Neutrophils Percent Auto 69.4 % (45-73); Platelet Count 219 X10*3/uL (160-400); Red Blood Count 4.28 X10*6/uL (4.60-5.80); Red Cell Distribution Width 13.7 % (11.0-16.0)
[2021-07-17 04:39] LABS: MANUAL DIFF FLAG NO
[2021-07-17] MEDS: Acetaminophen 325 MG TABLET 650 MG PO ×2 (08:16→14:01)
[2021-07-17] MEDS: Metoprolol Succinate ER 50 MG TAB.ER.24H PO (08:17)
[2021-07-17] MEDS: lisinopriL 10 MG TABLET PO (08:18)
[2021-07-17] MEDS: allopurinoL 100 MG TABLET PO (08:18)
[2021-07-17] MEDS: Cyanocobalamin (Vitamin B-12) 1,000 MCG TABLET 1000 MCG PO (08:19)
[2021-07-17] MEDS: Clopidogrel Bisulfate 75 MG TABLET PO (08:19)
[2021-07-17] MEDS: amLODIPine Besylate 5 MG TABLET PO (08:19)
--- NOTE | 2021-07-17 10:26 | P.PNIM_ITS ---
Subjective Subjective Date of Service: 07/17/21 Interval History: feeling better today Cardiovascular Cardiovascular: Reports no additional cardiovascular complaints Respiratory Respiratory: Reports no additional respiratory complaints Physical Exam Vital Signs: Vital Signs: Last Vital Signs Temp 98.3 F 07/17/21 09:25 Pulse 80 07/17/21 08:19 Resp 20 07/17/21 07:48 BP 116/59 L 07/17/21 08:19 Pulse Ox 94 07/17/21 07:48 Body Mass Index 38.0 General: AO X 3, no acute distress Resp: CTA bilateral CVS: S1,S2,RRR GI: soft, non tender, non distended Neuro: motor grossly intact Psych: appropriate affect Objective Data Active Medications Acetaminophen (Acetaminophen 325 Mg Tablet) 650 mg PO Q6H PRN PRN Reason: Pain, Mild (Pain Scale 1-3) Last Admin: 07/17/21 08:16 Dose: 650 mg Documented by: JIMENEZ Allopurinol (Allopurinol 100 Mg Tablet) 100 mg PO DAILY [facility] Last Admin: 07/17/21 08:18 Dose: 100 mg Documented by: JIMENEZ Amlodipine Besylate (Amlodipine Besylate 5 Mg Tablet) 5 mg PO DAILY [facility]; P rotocol Last Admin: 07/17/21 08:19 Dose: 5 mg Documented by: JIMENEZ Atorvastatin Calcium (Atorvastatin Calcium 40 Mg Tablet) 40 mg PO DAILY@1700 [facility] Clopidogrel Bisulfate (Clopidogrel Bisulfate 75 Mg Tablet) 75 mg PO DAILY [facility] Last Admin: 07/17/21 08:19 Dose: 75 mg Documented by: JIMENEZ Cyanocobalamin (Cyanocobalamin (Vitamin B-12) 1,000 Mcg Tablet) 1,000 mcg PO DAILY [facility] Last Admin: 07/17/21 08:19 Dose: 1,000 mcg Documented by: JIMENEZ Gabapentin (Gabapentin 300 Mg Capsule) 300 mg PO BEDTIME [facility] Hydromorphone HCl (Hydromorphone Hcl 0.5 Mg/0.5 Ml Syringe) 0.5 mg IVPUSH Q4H PRN; Protocol PRN Reason: Breakthrough Pain Last Admin: 07/17/21 00:16 Dose: 0.5 mg Documented by: SHAYY Ceftriaxone Sodium 1 gm/ (Sodium Chloride) 50 mls @ 100 mls/hr IV Q24H [facility] Lisinopril (Lisinopril 10 Mg Tablet) 10 mg PO DAILY [facility]; Protocol Last Admin: 07/17/21 08:18 Dose: 10 mg Documented by: JIMENEZ Lorazepam (Lorazepam 0.5 Mg Tablet) 0.5 mg PO BEDTIME PRN PRN Reason: Sleep Melatonin (Melatonin 3 Mg Tablet) 6 mg PO BEDTIME PRN PRN Reason: Insomnia Last Admin: 07/17/21 02:24 Dose: 6 mg Documented by: ROSALIA Metoprolol Succinate (Metoprolol Succinate Er 50 Mg Tab.Er.24h) 50 mg PO DAILY [facility]; Protocol Last Admin: 07/17/21 08:17 Dose: 50 mg Documented by: JIMENEZ Nitroglycerin (Nitroglycerin 0.4 Mg Tab.Subl) 0.4 mg SUBLINGUAL Q5M PRN PRN Reason: Chest Pain Omeprazole (Omeprazole 20 Mg Capsule.Dr) 20 mg PO BID@0630,1630 PRN PRN Reason: Acid Reflux Pharmacy Consult (Consult Rx Perform Med Rec) 1 each MISCELLANE ONCE PRN PRN Reason: Consult order Senna (Sennosides 8.6 Mg Tablet) 17.2 mg PO BEDTIME PRN PRN Reason: Constipation Sodium Chloride (0.9 % Sodium Chloride Flush 3 Ml Syringe) [facility] Last Admin: 07/17/21 07:46 Dose: Not Given Documented by: JIMENEZ Non-Admin Reason: IV Running Labs CBC & Chem 7: 07/17/21 04:22 07/17/21 03:28 Labs: Laboratory Results - last 24 hr 07/16/21 07/16/21 07/16/21 18:51 18:51 18:51 MCV 86.7 MCH 27.5 MCHC 31.7 RDW 13.5 Plt Count 242 MPV 9.8 Immature Gran % (Auto) 0.4 Neut % (Auto) 75.8 H Lymph % (Auto) 13.9 L [place] % (Auto) 9.2 Eos % (Auto) 0.5 Baso % (Auto) 0.2 Lymph # (Auto) 1.7 [place] # (Auto) 1.1 Eos # (Auto) 0.1 Baso # (Auto) 0.0 Abs Immat Gran (auto) 0.05 H Absolute Neuts (auto) 9.2 H Absolute Nucleated RBC 0.000 Nucleated RBC % (auto) 0.0 D-Dimer Anion Gap 13 Estim Creat Clear Calc 74.1 Estimated GFR > 60 Random Glucose 109 Lactic Acid 1.2 Calcium 8.4 Magnesium 1.9 Total Bilirubin 0.7 Direct Bilirubin 0.3 AST 16 ALT 12 Alkaline Phosphatase 117 Total Protein 5.8 L Albumin 3.6 Urine Color Urine Appearance Urine pH Ur Specific [place] Urine Protein Urine Glucose (UA) Urine Ketones Urine Blood Urine Nitrite Ur Leukocyte Esterase Urine RBC Urine WBC Ur Squamous Epith Cells Urine Bacteria COVID-19 ([facility]) COVID-19 Clin Com 07/16/21 07/16/21 07/17/21 19:43 20:03 03:28 MCV MCH MCHC RDW Plt Count MPV Immature Gran % (Auto) Neut % (Auto) Lymph % (Auto) [place] % (Auto) Eos % (Auto) Baso % (Auto) Lymph # (Auto) [place] # (Auto) Eos # (Auto) Baso # (Auto) Abs Immat Gran (auto) Absolute Neuts (auto) Absolute Nucleated RBC Nucleated RBC % (auto) D-Dimer Anion Gap 12 Estim Creat Clear Calc 69.9 Estimated GFR > 60 Random Glucose 149 H D Lactic Acid Calcium 7.9 L Magnesium Total Bilirubin Direct Bilirubin AST ALT Alkaline Phosphatase Total Protein Albumin Urine Color YELLOW Urine Appearance HAZY Urine pH 5.5 Ur Specific [place] 1.020 Urine Protein 1+ H Urine Glucose (UA) NEG Urine Ketones NEG Urine Blood TRACE Urine Nitrite NEG Ur Leukocyte Esterase 1+ H Urine RBC 0-2 Urine WBC 5-9 H Ur Squamous Epith Cells NONE Urine Bacteria 2+ COVID-19 ([facility]AL[facility]) Negative COVID-19 Clin Com See Note 07/17/21 07/17/21 03:28 04:22 MCV 88.8 MCH 27.6 MCHC 31.1 RDW 13.7 Plt Count 219 MPV 9.6 Immature Gran % (Auto) 0.3 Neut % (Auto) 69.4 Lymph % (Auto) 17.7 L [place] % (Auto) 11.5 H Eos % (Auto) 0.8 Baso % (Auto) 0.3 Lymph # (Auto) 2.1 [place] # (Auto) 1.4 H Eos # (Auto) 0.1 Baso # (Auto) 0.0 Abs Immat Gran (auto) 0.03 Absolute Neuts (auto) 8.3 Absolute Nucleated RBC 0.000 Nucleated RBC % (auto) 0.0 D-Dimer 477 Anion Gap Estim Creat Clear Calc Estimated GFR Random Glucose Lactic Acid Calcium Magnesium Total Bilirubin Direct Bilirubin AST ALT Alkaline Phosphatase Total Protein Albumin Urine Color Urine Appearance Urine pH Ur Specific [place] Urine Protein Urine Glucose (UA) Urine Ketones Urine Blood Urine Nitrite Ur Leukocyte Esterase Urine RBC Urine WBC Ur Squamous Epith Cells Urine Bacteria COVID-19 ([facility]) COVID-19 Clin Com Assessment and Plan (1) Pyelonephritis: Status: Acute Assessment and Plan: 76M presented with chills sepsis present on admission due to acute pyelonephritis, likely due passed stone continue rocephin, follow up cultures elevated ddimer due to sepsis very low suspicion for VTE, will cancel VQ scan CAD plavix, statin htn toprol, lisinopril, norvasc hld statin Quality Stroke Does the patient have a stroke diagnosis?: No VTE Prior VTE?: No VTE Risk Level:: Medical - moderate - high VTE Device Contraindication: Treatment Not Indicated VTE Drug Contraindication: N/A - Med Ordered
[2021-07-17] MEDS: Rivaroxaban 10 MG TABLET PO (12:29)
[2021-07-17] MEDS: 0.9 % Sodium Chloride Flush 3 ML SYRINGE IVFLUSH (16:51)
[2021-07-17] MEDS: Atorvastatin Calcium 40 MG TABLET PO (16:51)
[2021-07-17] MEDS: cefTRIAXone sodium 1 GM in 0.9 % Sodium Chloride 50 ML IV (18:55)
[2021-07-17] MEDS: Gabapentin 300 MG CAPSULE PO (20:42)
[2021-07-18] VITALS (8 sets, daily range): BP systolic 94–129; BP diastolic 43–62; PULSE 75–96; RESP 18–20; TEMP 37–37.7; O2SAT 92–97
[2021-07-18] MEDS: 0.9 % Sodium Chloride Flush 3 ML SYRINGE IVFLUSH ×3 (00:29→17:00)
[2021-07-18 06:56] LABS: Hematocrit 36.4 % (42-52); Hemoglobin 11.1 g/dl (14.0-18.0); Mean Corpuscular HGB Conc 30.5 g/dl (31.0-36.0); Mean Corpuscular Volume 88.6 fL (80-98); Mean Platelet Volume 10.3 fL (9.4-12.4); Platelet Count 200 X10*3/uL (160-400); Red Blood Count 4.11 X10*6/uL (4.60-5.80); Red Cell Distribution Width 13.5 % (11.0-16.0); White Blood Count 9.2 X10*3/uL (4.8-10.8)
[2021-07-18 07:04] LABS: Anion Gap 14 (12-20); Blood Urea Nitrogen 20 mg/dL (9-16); Calcium 7.9 mg/dL (8.4-10.2); Carbon Dioxide 25 mmol/L (22-29); Chloride 105 mmol/L (96-108); Creatinine Clr Calc Pharmacy 77.9; Estimated Glomerular Filt Rate > 60; Glucose Fasting 157 mg/dL (60-99); Potassium 4.5 mmol/L (3.3-5.1); Sodium 139 mmol/L (135-145)
--- NOTE | 2021-07-18 10:04 | P.PNIM_ITS ---
Subjective Subjective Date of Service: 07/18/21 Interval History: still with flank pain, overall much better, passing small stones Cardiovascular Cardiovascular: Reports no additional cardiovascular complaints Respiratory Respiratory: Reports no additional respiratory complaints Physical Exam Vital Signs: Vital Signs: Last Vital Signs Temp 99.8 F 07/18/21 08:00 Pulse 96 07/18/21 08:00 Resp 20 07/18/21 08:00 BP 129/58 L 07/18/21 08:00 Pulse Ox 92 07/18/21 08:00 Body Mass Index 38.0 General: AO X 3, no acute distress Resp: CTA bilateral CVS: S1,S2,RRR GI: soft, non tender, non distended Neuro: motor grossly intact Psych: appropriate affect Objective Data Active Medications Acetaminophen (Acetaminophen 325 Mg Tablet) 650 mg PO Q6H PRN PRN Reason: Pain, Mild (Pain Scale 1-3) Last Admin: 07/17/21 14:01 Dose: 650 mg Documented by: KERRY Allopurinol (Allopurinol 100 Mg Tablet) 100 mg PO DAILY [facility] Last Admin: 07/17/21 08:18 Dose: 100 mg Documented by: JIMENEZ Amlodipine Besylate (Amlodipine Besylate 5 Mg Tablet) 5 mg PO DAILY [facility]; Protocol Last Admin: 07/17/21 08:19 Dose: 5 mg Documented by: JIMENEZ Atorvastatin Calcium (Atorvastatin Calcium 40 Mg Tablet) 40 mg PO DAILY@1700 [facility] Last Admin: 07/17/21 16:51 Dose: 40 mg Documented by: KERRY Clopidogrel Bisulfate (Clopidogrel Bisulfate 75 Mg Tablet) 75 mg PO DAILY [facility] Last Admin: 07/17/21 08:19 Dose: 75 mg Documented by: JIMENEZ Cyanocobalamin (Cyanocobalamin (Vitamin B-12) 1,000 Mcg Tablet) 1,000 mcg PO DAILY [facility] Last Admin: 07/17/21 08:19 Dose: 1,000 mcg Documented by: JIMENEZ Gabapentin (Gabapentin 300 Mg Capsule) 300 mg PO BEDTIME [facility] Last Admin: 07/17/21 20:42 Dose: 300 mg Documented by: KERRY Hydromorphone HCl (Hydromorphone Hcl 0.5 Mg/0.5 Ml Syringe) 0.5 mg IVPUSH Q4H PRN; Protocol PRN Reason: Breakthrough Pain Last Admin: 07/17/21 20:48 Dose: 0.5 mg Documented by: KERRY Ceftriaxone Sodium 1 gm/ (Sodium Chloride) 50 mls @ 100 mls/hr IV Q24H [facility] Last Infusion: 07/17/21 20:00 Dose: 0 mls/hr Documented by: KERRY Lisinopril (Lisinopril 10 Mg Tablet) 10 mg PO DAILY [facility]; Protocol Last Admin: 07/17/21 08:18 Dose: 10 mg Documented by: JIMENEZ Lorazepam (Lorazepam 0.5 Mg Tablet) 0.5 mg PO BEDTIME PRN PRN Reason: Sleep Melatonin (Melatonin 3 Mg Tablet) 6 mg PO BEDTIME PRN PRN Reason: Insomnia Last Admin: 07/17/21 02:24 Dose: 6 mg Documented by: ROSALIA Metoprolol Succinate (Metoprolol Succinate Er 50 Mg Tab.Er.24h) 50 mg PO DAILY [facility]; Protocol Last Admin: 07/17/21 08:17 Dose: 50 mg Documented by: JIMENEZ Nitroglycerin (Nitroglycerin 0.4 Mg Tab.Subl) 0.4 mg SUBLINGUAL Q5M PRN PRN Reason: Chest Pain Omeprazole (Omeprazole 20 Mg Capsule.Dr) 20 mg PO BID@0630,1630 PRN PRN Reason: Acid Reflux Pharmacy Consult (Consult Rx Perform Med Rec) 1 each MISCELLANE ONCE PRN PRN Reason: Consult order Rivaroxaban (Rivaroxaban 10 Mg Tablet) 10 mg PO DAILY [facility] Last Admin: 07/17/21 12:29 Dose: 10 mg Documented by: JIMENEZ Senna (Sennosides 8.6 Mg Tablet) 17.2 mg PO BEDTIME PRN PRN Reason: Constipation Sodium Chloride (0.9 % Sodium Chloride Flush 3 Ml Syringe) 3 ml IVFLUSH QSHIFT [facility] Last Admin: 07/18/21 00:29 Dose: 3 ml Documented by: KAYKAY Labs CBC & Chem 7: 07/18/21 05:48 07/18/21 05:48 Labs: Laboratory Results - last 24 hr 07/18/21 07/18/21 05:48 05:48 MCV 88.6 MCH 27.0 MCHC 30.5 L RDW 13.5 Plt Count 200 MPV 10.3 Absolute Nucleated RBC 0.000 Nucleated RBC % (auto) 0.0 Anion Gap 14 Estim Creat Clear Calc 77.9 Estimated GFR > 60 Fasting Glucose 157 H Calcium 7.9 L Microbiology Microbiology Results: Microbiology 07/16/21 19:44 Blood Culture - Preliminary Blood - Venous Prelim: GNR Gram Stain only 07/16/21 18:51 Blood Culture - Preliminary Blood - Venous No growth after 24 hours. 07/16/21 19:55 Urine Culture - Preliminary Urine clean catch - Urine gordon top Culture in progress. Assessment and Plan (1) Pyelonephritis: Status: Acute Assessment and Plan: 76M presented with chills sepsis present on admission due to acute pyelonephritis, likely due passed stone continue rocephin, follow up cultures - blood growing GNR CAD plavix, statin htn toprol, lisinopril, norvasc hld statin Quality Stroke Does the patient have a stroke diagnosis?: No VTE Prior VTE?: No VTE Risk Level:: Medical - moderate - high VTE Device Contraindication: Treatment Not Indicated VTE Drug Contraindication: N/A - Med Ordered
[2021-07-18] MEDS: Cyanocobalamin (Vitamin B-12) 1,000 MCG TABLET 1000 MCG PO (10:36)
[2021-07-18] MEDS: Clopidogrel Bisulfate 75 MG TABLET PO (10:36)
[2021-07-18] MEDS: lisinopriL 10 MG TABLET PO (10:37)
[2021-07-18] MEDS: allopurinoL 100 MG TABLET PO (10:38)
[2021-07-18] MEDS: amLODIPine Besylate 5 MG TABLET PO (10:38)
[2021-07-18] MEDS: Rivaroxaban 10 MG TABLET PO (10:38)
[2021-07-18] MEDS: Metoprolol Succinate ER 50 MG TAB.ER.24H PO (10:39)
--- NOTE | 2021-07-18 12:59 | MHC.CM.PN ---
Patient has not yet been medically cleared for dc (IV ceftriaxone started, flank pain/passing small stones). Home is the goal for dc and CM will continue to follow for possible need to adjust the dc plan.
[2021-07-18] MEDS: Atorvastatin Calcium 40 MG TABLET PO (16:53)
[2021-07-18] MEDS: cefTRIAXone sodium 1 GM in 0.9 % Sodium Chloride 50 ML IV (19:03)
[2021-07-18] MEDS: Gabapentin 300 MG CAPSULE PO (20:50)
[2021-07-18] MEDS: HYDROmorphone HCl 0.5 MG/0.5 ML SYRINGE IVPUSH (20:50)
[2021-07-19] MEDS: 0.9 % Sodium Chloride Flush 3 ML SYRINGE IVFLUSH ×2 (00:14→09:36)
[2021-07-19 06:56] LABS: Hematocrit 39.3 % (42-52); Hemoglobin 11.8 g/dl (14.0-18.0); Mean Corpuscular Hemoglobin 26.6 pg (27.0-33.0); Mean Corpuscular Volume 88.5 fL (80-98); Mean Platelet Volume 10.1 fL (9.4-12.4); Platelet Count 230 X10*3/uL (160-400); Red Blood Count 4.44 X10*6/uL (4.60-5.80); Red Cell Distribution Width 13.4 % (11.0-16.0); White Blood Count 9.6 X10*3/uL (4.8-10.8)
[2021-07-19 07:22] LABS: Anion Gap 15 (12-20); Blood Urea Nitrogen 17 mg/dL (9-16); Calcium 8.4 mg/dL (8.4-10.2); Carbon Dioxide 28 mmol/L (22-29); Chloride 104 mmol/L (96-108); Creatinine Clr Calc Pharmacy 89.9; Estimated Glomerular Filt Rate > 60; Glucose Fasting 110 mg/dL (60-99); Potassium 4.6 mmol/L (3.3-5.1); Sodium 142 mmol/L (135-145)
[2021-07-19 07:32] VITALS: BP 138/62; PULSE 91; RESP 18; TEMP 36.9; O2SAT 93
[2021-07-19 09:35] VITALS: BP 138/62; PULSE 91
[2021-07-19] MEDS: lisinopriL 10 MG TABLET PO (09:35)
[2021-07-19] MEDS: Rivaroxaban 10 MG TABLET PO (09:35)
[2021-07-19] MEDS: allopurinoL 100 MG TABLET PO (09:35)
[2021-07-19 09:36] VITALS: BP 138/62; PULSE 91
[2021-07-19] MEDS: Clopidogrel Bisulfate 75 MG TABLET PO (09:36)
[2021-07-19] MEDS: Cyanocobalamin (Vitamin B-12) 1,000 MCG TABLET 1000 MCG PO (09:36)
[2021-07-19] MEDS: amLODIPine Besylate 5 MG TABLET PO (09:36)
[2021-07-19] MEDS: Metoprolol Succinate ER 50 MG TAB.ER.24H PO (09:36)
[2021-07-19] MEDS: HYDROmorphone HCl 0.5 MG/0.5 ML SYRINGE IVPUSH (11:01)
--- NOTE | 2021-07-19 11:16 | PM.DS ---
DS: Providers Provider Date of Service: 07/19/21 Date of admission: 07/16/21 21:07 Primary care physician: Jaxon Coffman MD DS: Diagnosis Discharge Diagnosis (1) Pyelonephritis: Status: Acute (2) Nephrolithiasis: Status: Acute (3) Sepsis: Status: Acute (4) CAD (coronary artery disease): Status: Acute (5) HTN (hypertension): Status: Acute (6) Bacteremia: Status: Acute DS: Summary Hospital Course Hospital Course: patient was admitted for sepsis due to acute pyelonephritis from passed kidney stone complicated by gram negative bacteremia. urine grew out enterobacter aerogenes, which is expected to be same as blood culture, however, blood cultures is still pending and should be followed outpatient , antibiotics should be adjusted if needed. patient was treated with ceftriaxone and sepsis resolved. he will be discharged on 7 more days of oral ceftin. Time Spent with Patient Time attestation: Total time spent providing and/or coordinating discharge services: Discharge coordination time: Greater than 30 minutes Quality: Stroke Does the patient have a stroke diagnosis?: No Physical Exam Vital Signs: Vital Signs: Last Vital Signs Temp 98.5 F 07/19/21 07:32 Pulse 91 07/19/21 09:36 Resp 18 07/19/21 07:32 BP 138/62 07/19/21 09:36 Pulse Ox 93 07/19/21 07:32 Body Mass Index 38.0 General: AO X 3, no acute distress Resp: CTA bilateral CVS: S1,S2,RRR GI: soft, non tender, non distended Neuro: motor grossly intact Psych: appropriate affect DS: Data Data Completed and Pending Labs on day of discharge: Laboratory Results - last 24 hr 07/19/21 07/19/21 05:28 05:28 WBC 9.6 RBC 4.44 L Hgb 11.8 L Hct 39.3 L MCV 88.5 MCH 26.6 L MCHC 30.0 L RDW 13.4 Plt Count 230 MPV 10.1 Absolute Nucleated RBC 0.000 Nucleated RBC % (auto) 0.0 Sodium 142 Potassium 4.6 Chloride 104 Carbon Dioxide 28 Anion Gap 15 BUN 17 H Creatinine 0.84 Estim Creat Clear Calc 89.9 Estimated GFR > 60 Fasting Glucose 110 H Calcium 8.4 D Preliminary micro results at discharge 07/16/21 19:44 Blood Culture - Preliminary Blood - Venous Gram negative rekha 07/16/21 18:51 Blood Culture - Preliminary Blood - Venous No growth after 48 hours. Discharge Plan Discharge Patient Disposition: Home, Self-Care Discharge Diagnosis: sepsis, uti Referrals: Jaxon Coffman MD [Primary Care Provider] - 1 Week Discharge Medications: New cefuroxime axetil 500 mg tablet 500 mg PO Q12H Qty: 14 RF: 0 oxycodone 5 mg capsule 5 mg PO Q6H PRN (Reason: pain) Qty: 10 RF: 0 Continued metoprolol succinate 100 mg tablet extended release 24 hr 50 mg PO DAILY 90 Days Qty: 45 RF: 1 clopidogrel 75 mg tablet 75 mg PO DAILY Qty: 30 RF: 0 amlodipine 5 mg tablet 5 mg PO DAILY 90 Days Qty: 90 RF: 3 gabapentin [Neurontin] 300 mg capsule 300 mg PO BEDTIME Qty: 30 RF: 0 cyanocobalamin (vitamin B-12) 1,000 mcg Tablet 1,000 mcg PO DAILY RF: 0 lorazepam 0.5 mg tablet 1 tab PO BEDTIME PRN (Reason: Sleep) RF: 0 nitroglycerin 0.4 mg Tablet, Sublingual 0.4 mg SUBLINGUAL Q5M PRN (Reason: Chest Pain) RF: 0 melatonin 10 mg Tablet 10 mg PO BEDTIME RF: 0 atorvastatin 40 mg tablet 40 mg PO DAILY@1700 RF: 0 omeprazole 20 mg capsule,delayed release(DR/EC) 20 mg PO BID@0630,1630 PRN (Reason: Acid Reflux) RF: 0 allopurinol 100 mg tablet 100 mg PO DAILY RF: 0 lisinopril 10 mg tablet 10 mg PO DAILY RF: 0 Discharge Orders: Discharge Order (Routine); Ordered 07/19/21 Ordered By: Rupesh De Leon Diet: advance to usual diet Activity on Discharge: As tolerated Stand Alone Forms: Patient Portal Discharge page Care Plan Goals: recovery Health Concerns: uti Plan of Treatment: ceftin for 7 more days, follow up final cultures and adjust antibiotics if needed. monitor for fevers or worsening pain. Assessment: see above
--- NOTE | 2021-07-19 11:32 | MHC.CM.PN ---
Patient has been medically cleared for dc to home today, no services. CM met with Patient and his Significant Other at bedside and addressed second IMM, providing Patient with the original and placing a copy on the chart. Patient is aware of and in agreement with the dc plan.
== END 2021-07-19 11:20 | disposition home or self-care (01) | DRG 872 ==
LOC: HO.ED 20:50 → HO.IMC 22:34
PROVIDERS: Nurse Practitioner Family; Admitting Provider Hospitalist; Emergency Provider Emergency Medicine Emergency Medical Services; PCP Internal Medicine; Visit Provider Internal Medicine
DX: A41.59 Other Gram-negative sepsis (principal); N10 Acute pyelonephritis; I25.10 Atherosclerotic heart disease of native coronary artery without angina pectoris; E66.9 Obesity, unspecified; Z68.38 Body mass index [BMI] 38.0-38.9, adult; I10 Essential (primary) hypertension; N20.0 Calculus of kidney; E78.5 Hyperlipidemia, unspecified; D72.829 Elevated white blood cell count, unspecified; G47.33 Obstructive sleep apnea (adult) (pediatric); Z20.822 Contact with and (suspected) exposure to COVID-19; Z88.6 Allergy status to analgesic agent; Z79.02 Long term (current) use of antithrombotics/antiplatelets; Z79.899 Other long term (current) drug therapy
CPT/HCPCS: 36415; 74176; 80048; 80076; 81001; 83605; 83735; 85025; 85027; 85379; 87040; 87077; 87086; 87088; 87186; 87205; 87635; 96361; 96374; 96375; 99285; J0696; J1170; J2270

== ENCOUNTER → 2021-08-11 14:37 | Outpatient (BNVA) | payer MEDICARE, SELFPAY | PROVIDERS: PCP Internal Medicine; Referring Provider Internal Medicine; Visit Provider Internal Medicine Cardiovascular Disease | DX: I25.10 Atherosclerotic heart disease of native coronary artery without angina pectoris (principal); R06.02 Shortness of breath | CPT/HCPCS: 99212 ==

== ENCOUNTER → 2021-08-20 12:41 | Outpatient (REF) | payer MEDICARE, SELFPAY ==
--- NOTE | 2021-08-20 12:49 | CA_ITS ---
Transthoracic Echocardiogram Patient (Last, First, Middle): Dmitri Darnell F Gender: Male Date of : 1945 Age: 76 Procedure Date: 08/20/2021 Procedure Type: Transthoracic Echocardiogram Location: OP Height: 177.8 cm Weight: 113.85 kg BSA: 2.30 m2 Heart Rate: bpm BP: 120 / 64 mmHg [employer]: ANGELA Referring MD: Elver Gale MD Symptoms: I25.10 - Atherosclerotic heart disease of [place] coronary... Study Quality: Fair ECG Rhythm: Sinus Conclusions: - The left ventricular systolic function is normal. The calculated ejection fraction is 63% by biplane method. - There is mild calcification of the aortic valve. - There is mild mitral annular calcification. - There is mild dilatation of the ascending aorta measuring 3.90 cm. Findings Procedure Information Contrast agent, definity, is being given per protocol without apparent complications. Left Ventricle Normal left ventricular cavity size. There is mildly increased left ventricular wall thickness. The left ventricular systolic function is normal. The calculated ejection fraction is 63% by biplane method. There is no evidence of regional wall motion abnormalities. Diastolic function is normal for age. Right Ventricle Normal right ventricular cavity size and systolic function. Atria Both atria are normal in size. Aortic Valve There is a normal trileaflet aortic valve. There is mild calcification of the aortic valve. There is no aortic valve stenosis. There is no aortic valve regurgitation. Mitral Valve There is mild mitral annular calcification. There is no mitral valve regurgitation. There is no mitral valve stenosis. Pulmonic Valve The pulmonic valve was not well visualized. Tricuspid Valve There is no tricuspid valve regurgitation. The pulmonary artery systolic pressure is normal. Great Vessels There is mild dilatation of the ascending aorta measuring 3.90 cm. Venous The inferior vena cava is normal in size and collapses greater than 50% with inspiration. Pericardium/Pleural There is no evidence of pericardial effusion. Prior Study Comparison Changes noted compared to prior study dated: 10/26/2018. Slight increase in ascending aortic size. Measurements 2D Linear Measurements IVSd: 1.36 0.6-0.9/0.6-1.0 cm LVIDd: 4.82 3.9-5.3/4.2-5.9 cm LVIDd Index: 2.10 2.4-3.2/2.2-3.1 cm/m2 LVIDs: 3.35 2.0-3.6 cm LVPWd: 1.36 0.7-1.1 cm LA Diam: 4.00 2.7-3.8/3.0-4.0 cm LAIDs Index: 1.74 1.5-2.3 cm/m2 LV Mass: 329.35 67-162/88-224 g LV Mass Index: 143.19 43-95/49-115 g/m2 LVOT Diam: 2.20 3.0+(-)1.3 cm 2D Systolic Function EF 4C: 53.90 >55% EF 2C: 67.00 >55% EF BiP: 62.90 >55% Mitral Valve MV Pk E: 0.61 MV PK A: 0.89 MV Decel Time: 180.00 E/A: 0.70 E'Lateral: 8.49 E'Medial: 7.62 E/E' Med: 8.00 E/E' Lat: 7.20 PHT: 53.00 MVA PHT: 4.15 Decel [place]: 3.41 Aortic Valve AoV Pk Naman: 1.34 AoV Pk Grad: 7.00 LVOT LVOT Pk Naman: 0.81 LVOT Mn Naman: 0.51 LVOT VTI: 0.16 LVOT Pk Grad: 3.00 LVOT Mn Grad: 1.00 LVOT Diam: 2.20 LVOT Area: 3.80 Diastolic Function MV Pk E: 0.61 MV Pk A: 0.89 E/A: 0.70 E'Medial: 7.62 E/E' Med: 8.00 E' Laterial: 8.49 E/E' Lat: 7.20 Right Ventricle TAPSE (mm): 1.91 Tricuspid Valve TR Pk Naman: 2.62 TR Pk Grad: 27.00 RA Press: 3.00 RVSP: 30.00 Great Vessels Aorta Ao Asc: 3.90 2.1-3.4 cm Updated in Other Vendor System with Status of Final Watson Juarez MD electronically signed on 08/21/2021 12:28:16 PM with status of Final
== END ==
LOC: HO.CARD 12:41
PROVIDERS: PCP Internal Medicine; Visit Provider Internal Medicine Cardiovascular Disease
DX: I25.10 Atherosclerotic heart disease of native coronary artery without angina pectoris (principal)
CPT/HCPCS: 93306; Q9957

== ENCOUNTER → 2021-10-02 15:14 | Outpatient (BNVA) | payer MEDICARE, SELFPAY | PROVIDERS: PCP Internal Medicine; Referring Provider Internal Medicine; Visit Provider Internal Medicine Cardiovascular Disease | DX: I25.10 Atherosclerotic heart disease of native coronary artery without angina pectoris (principal); I10 Essential (primary) hypertension | CPT/HCPCS: 99212 ==

== ENCOUNTER → 2022-01-01 15:04 | Outpatient (BNVA) | payer MEDICARE, SELFPAY ==
[2021-11-21 13:14] VITALS: BP 130/62; BP 170/68
[2021-12-16 08:36] VITALS: BP 124/58; BMI 38.7
== END ==
PROVIDERS: PCP Internal Medicine; Referring Provider Internal Medicine; Visit Provider Internal Medicine Cardiovascular Disease
DX: R06.02 Shortness of breath (principal); I25.10 Atherosclerotic heart disease of native coronary artery without angina pectoris; Z79.899 Other long term (current) drug therapy
CPT/HCPCS: 99212

== ENCOUNTER 2022-02-20 16:08 | Inpatient (IN) | payer MEDICARE, SELFPAY ==
[2022-02-03 06:38] VITALS: BP 124/60; BMI 37.7
--- NOTE | ~2022-02-20 | XR_ITS ---
EXAMINATION: XR chest 1V CLINICAL INFORMATION: Reason for Exam dyspnea/fever COMPARISON: Chest radiograph 20 04/03/2019 TECHNIQUE: One view of the chest XR/XR chest 1V FINDINGS/IMPRESSION: Left lower lobe basilar airspace opacity which may reflect aspiration or infection. Recommend follow-up radiographs to ensure resolution. No pneumothorax. No pleural effusion. Normal cardiomediastinal silhouette.
--- NOTE | 2022-02-20 16:16 | ECG_ITS ---
Test Reason : DYSPNEA Blood Pressure : / mmHG Vent. Rate : 089 BPM Atrial Rate : 089 BPM P-R Int : 172 ms QRS Dur : 134 ms QT Int : 396 ms P-R-T Axes : 037 -49 029 degrees QTc Int : 481 ms Sinus rhythm with Premature supraventricular complexes Left axis deviation Right bundle branch block Abnormal ECG When compared with ECG of 30-MAR-2021 17:01, Premature supraventricular complexes are now Present Referred By: Generic ED Physician Electronically Signed By:AUBREY WHITE MD
[2022-02-20 16:17] VITALS: BP 152/67; PULSE 93; RESP 26; TEMP 37.3; O2SAT 90; BMI 37.3
--- NOTE | 2022-02-20 16:45 | ED_ITS ---
HPI - General Adult General Chief complaint: Fever Stated complaint: fever,LBP - sent from [employer] Time Seen by Provider: 02/20/22 16:39 Source: patient and family ( ) Mode of arrival: ambulatory Limitations: no limitations History of Present Illness HPI narrative: 76-year-old male came in for evaluation of having coughing and fever. Patient started to have productive cough with clear sputum and subjective fever since yesterday, patient was seen and evaluated at a walk-in clinic urgent care and was advised to come to the hospital for further evaluation, patient did not take his blood pressure at home and he was not told at the urgent care that his blood pressure is low as was stated in triage note, on arrival patient was not hypotensive, he has been complaining of chest pain since yesterday, chest pain is to the whole anterior chest wal that worsel with coughing with no radiation, patient with history of coronary artery disease (pending CABG bypass surgery this summer ) chronic stable angina, hypertension, hyperlipidemia, COPD ( patient was advised to use CPAP and oxygen at home but patient decline ). No recent travel, no sick contact. Related Data Home Medications Medication Instructions Recorded Confirmed allopurinol 100 mg tablet 100 mg PO DAILY 09/16/20 01/01/22 lisinopril 10 mg tablet 10 mg PO DAILY 09/16/20 01/01/22 atorvastatin 40 mg tablet 40 mg PO DAILY@1700 07/16/21 01/01/22 lorazepam 0.5 mg tablet 1 tab PO BEDTIME PRN 07/16/21 01/01/22 melatonin 10 mg tablet 10 mg PO BEDTIME 07/16/21 01/01/22 nitroglycerin 0.4 mg sublingual 0.4 mg SUBLINGUAL Q5M PRN 07/16/21 01/01/22 tablet omeprazole 20 mg capsule,delayed 20 mg PO BID@0630,1630 PRN 07/16/21 01/01/22 release Previous Rx's Medication Instructions Recorded gabapentin 300 mg capsule 300 mg PO BEDTIME #30 cap 03/30/21 (Neurontin) amlodipine 5 mg tablet 2.5 mg PO DAILY 90 Days #45 tab 08/11/21 metoprolol succinate 50 mg 50 mg PO DAILY #90 tab 09/30/21 tablet,extended release 24 hr (Toprol XL) clopidogrel 75 mg tablet 75 mg PO DAILY #30 tab 10/14/21 Allergies Allergy/AdvReac Type Severity Reaction Status Date / Time Aspirin Allergy Unknown rectal Uncoded 02/20/22 16:20 bleeding Review of Systems Review of Systems: All other systems are reviewed and are negative Constitutional: Reports as per HPI and Reports no additional constitutional complaints Eyes: Reports as per HPI and Reports no additional eye complaints Reports system reviewed and no additional complaints, except as documented Cardiovascular: Reports as per HPI and Reports no additional cardiovascular complaints Respiratory: Reports as per HPI and Reports no additional respiratory complaints Gastrointestinal: Reports as per HPI and Reports no additional gastrointestinal complaints Genitourinary: Reports no additional female genitourinary complaints Musculoskeletal: Reports no additional musculoskeletal complaints Skin/Breast: Reports system reviewed and no additional complaints, except as docu Psychiatric: Reports no additional psychiatric complaints Endocrine: Reports no additional endocrine complaints Hematologic/Lymphatic: Reports no additional hematologic/lymphatic complaints Allergic/Immunologic: Reports no additional allergic/immunologic complaints Reports system reviewed and no additional complaints, except as documented and Reports Abnormal speech present PMFSH Past Medical History Medical History CAD (coronary artery disease) Chronic stable angina HTN (hypertension) Hyperlipidemia Nephrolithiasis Obesity MAYA (obstructive sleep apnea) Prostate cancer Right bundle branch block (RBBB) on electrocardiogram (ECG) Surgical History History of basal cell carcinoma (BCC) excision History of carpal tunnel release History of eye surgery Hx laparoscopic cholecystectomy Hx of cardiac cath Hx of hernia repair Hx of spinal surgery Family History Family History Father CVD (cardiovascular disease) Mother CVD (cardiovascular disease) Brother CVD (cardiovascular disease) Social History Social History Household Members: Spouse Housing: House Do you presently have visiting nurse or other home services: No Alcohol intake: former Patient Tobacco Use Status: Never used Tobacco Tobacco use type: Cigarette Advance Directives: Yes Advance Directives on File: Yes Advance Directives Date on File: 07/17/21 service: No Current occupational status: retired Physical Exam ED Vital Signs: Vital Signs - 24 hr 02/20/22 16:17 02/20/22 16:56 02/20/22 18:36 Temperature 99.1 F 98.2 F Pulse Rate 93 90 98 Respiratory Rate 26 H 22 H 20 Blood Pressure 152/67 H 109/56 L Pulse Oximetry 90 L 92 BMI result Body Mass Index 37.3 vital signs have been reviewed as appeared to be correct. Blood pressure normal. Heart rate normal. Respiration rate normal. Temperature normal. Oxygen saturation normal. Appearance: Alert. Oriented X3. No acute distress. Head: Normal external exam. Normocephalic. Atraumatic. No Briceño signs noted. No raccoon eyes noted Eyes: PERRLA. EOMI. Conjunctiva and sclera normal. Eyelids normal. ENT: TM's Normal. Pharynx normal. Uvula midline. Moist mucous membranes. No trismus noted. No drooling noted. No muffled voice noted. Neck: Normal inspection. Neck supple. FROM. No adenopathy. Thyroid Normal. No m eningeal signs. No neck mass noted. CVS: Normal heart rate and rhythm. Heart sound normal. No murmurs noted. Pulses normal throughout. Respiratory: No respiratory distress. Painless inspiration. Breath sounds normal. Diffuse expiratory wheezing, prolonged expiration. diffuse mild chest tenderness with palpation. No accessory muscle usage noted or decreased air movement noted. Abdomen: Soft and nontender. Bowel sounds normal in all 4 quadrants. No distention noted. No organomegaly noted. No visible injury noted. Back: No CVA tenderness. Full range of motion noted. Skin: Skin warm and dry. Normal skin color. Normal skin turgor. No rashes/lesions/lacerations noted. Extremities: No lower extremity edema. Extremities exhibit normal range of motion. Extremities nontender. Neuro: Oriented X 3. Cranial nerve exam: II-XII are grossly intact No motor deficit. No sensory deficit. Reflexes normal. Course Course Course Narrative: assessment and plan. 76-year-old male came in for evaluation of coughing, patient found to be hypoxic initially at the urgent care, chest x-ray /physical exam is consistent with left lower lobe pneumonia, patient meet criteria for sirs with no evidence of severe sepsis or septic shock. patient remained normotensive while in the emergency dep artment. patient was hypoxic at 88% in the emergency department required 2 L of oxygen to keep it above 90%. Medical Decision Making Lab Data Lab results reviewed: Yes I reviewed the patient's lab results. Result diagrams: 02/20/22 17:17 02/20/22 17:17 Labs: Lab Results 02/20/22 02/20/22 02/20/22 Range/Units 17:17 17:17 17:17 WBC 10.9 H (4.8-10.8) X10*3/uL RBC 5.05 (4.60-5.80) X10*6/uL Hgb 12.9 L (14.0-18.0) g/dl Hct 42.4 (42.0-52.0) % MCV 84.0 (80.0-98.0) fL MCH 25.5 L (27.0-33.0) pg MCHC 30.4 L (31.0-36.0) g/dl RDW 15.1 (11.0-16.0) % Plt Count 193 (160-400) X10*3/uL MPV 9.6 (9.4-12.4) fL Immature Gran % (Auto) 0.2 (0.0-0.4) % Neut % (Auto) 83.2 H (45-73) % Lymph % (Auto) 8.8 L (20-40) % [place] % (Auto) 6.9 (2-11) % Eos % (Auto) 0.7 (0-4) % Baso % (Auto) 0.2 (0-2) % Lymph # (Auto) 1.0 L (1.2-4.9) X10*3/uL [place] # (Auto) 0.8 (0.1-1.2) X10*3/uL Eos # (Auto) 0.1 (0.0-0.4) X10*3/uL Baso # (Auto) 0.0 (0.0-0.2) X10*3/uL Abs Immat Gran (auto) 0.02 (0.00-0.03) X10*3/uL Absolute Neuts (auto) 9.0 H (2.0-8.3) x10*3/uL Absolute Nucleated RBC 0.000 (0.0-0.012) X10*3/uL Nucleated RBC % (auto) 0.0 (0.0-0.2) /100WBC Sodium 139 (135-145) mmol/L Potassium 4.6 (3.3-5.1) mmol/L Chloride 101 (96-108) mmol/L Carbon Dioxide 30 H (22-29) mmol/L Anion Gap 13 (12-20) BUN 13 (9-16) mg/dL Creatinine 0.95 (0.5-1.4) mg/dL Estim Creat Clear Calc 83.8 Estimated GFR > 60 Random Glucose 112 (60-115) mg/dL Lactic Acid (0.5-2.0) mmol/L Calcium 8.5 (8.4-10.2) mg/dL Troponin I High Sens 6.0 (<3.5-35.0) ng/L Influenza Type A (PCR) (Negative) Influenza Type B (PCR) (Negative) RSV RNA Qual (PCR) (Negative) SARS-CoV-2 RNA (RT-PCR) (Negative) 02/20/22 02/20/22 Range/Units 17:17 17:17 WBC (4.8-10.8) X10*3/uL RBC (4.60-5.80) X10*6/uL Hgb (14.0-18.0) g/dl Hct (42.0-52.0) % MCV (80.0-98.0) fL MCH (27.0-33.0) pg MCHC (31.0-36.0) g/dl RDW (11.0-16.0) % Plt Count (160-400) X10*3/uL MPV (9.4-12.4) fL Immature Gran % (Auto) (0.0-0.4) % Neut % (Auto) (45-73) % Lymph % (Auto) (20-40) % [place] % (Auto) (2-11) % Eos % (Auto) (0-4) % Baso % (Auto) (0-2) % Lymph # (Auto) (1.2-4.9) X10*3/uL [place] # (Auto) (0.1-1.2) X10*3/uL Eos # (Auto) (0.0-0.4) X10*3/uL Baso # (Auto) (0.0-0.2) X10*3/uL Abs Immat Gran (auto) (0.00-0.03) X10*3/uL Absolute Neuts (auto) (2.0-8.3) x10*3/uL Absolute Nucleated RBC (0.0-0.012) X10*3/uL Nucleated RBC % (auto) (0.0-0.2) /100WBC Sodium (135-145) mmol/L Potassium (3.3-5.1) mmol/L Chloride (96-108) mmol/L Carbon Dioxide (22-29) mmol/L Anion Gap (12-20) BUN (9-16) mg/dL Creatinine (0.5-1.4) mg/dL Estim Creat Clear Calc Estimated GFR Random Glucose (60-115) mg/dL Lactic Acid 1.4 (0.5-2.0) mmol/L Calcium (8.4-10.2) mg/dL Troponin I High Sens (<3.5-35.0) ng/L Influenza Type A (PCR) NEGATIVE (Negative) Influenza Type B (PCR) NEGATIVE (Negative) RSV RNA Qual (PCR) NEGATIVE (Negative) SARS-CoV-2 RNA (RT-PCR) NEGATIVE (Negative) Imaging Data Chest x-ray: Attestation: I personally reviewed and interpreted this imaging study as follows: Radiologist's impression: Left lower lobe basilar airspace opacity which may reflect aspiration or infection. Recommend follow-up radiographs to ensure resolution. ? No pneumothorax. No pleural effusion. ? Normal cardiomediastinal silhouette. ECG Data Attestation: I personally reviewed and interpreted this ECG as follows: Interpretation: Normal sinus rhythm at 89 beats per minute, left axis deviation, right BBB, no change from old EKG. Discharge Plan Discharge Clinical Impression: Community acquired pneumonia, COPD (chronic obstructive pulmonary disease) Patient Disposition: Admitted As Inpatient Instructions: Community Acquired Pneumonia (ED) Prescriptions: No Action metoprolol succinate [Toprol XL] 50 mg tablet extended release 24 hr 50 mg PO DAILY Qty: 90 1RF clopidogrel 75 mg tablet 75 mg PO DAILY Qty: 30 6RF gabapentin [Neurontin] 300 mg capsule 300 mg PO BEDTIME Qty: 30 0RF lorazepam 0.5 mg tablet 1 tab PO BEDTIME PRN (Reason: Sleep) 0RF nitroglycerin 0.4 mg Tablet, Sublingual 0.4 mg SUBLINGUAL Q5M PRN (Reason: Chest Pain) 0RF melatonin 10 mg Tablet 10 mg PO BEDTIME 0RF atorvastatin 40 mg tablet 40 mg PO DAILY@1700 0RF omeprazole 20 mg capsule,delayed release(DR/EC) 20 mg PO BID@0630,1630 PRN (Reason: Acid Reflux) 0RF Rx Instructions: Please obtain refills from PCP allopurinol 100 mg tablet 100 mg PO DAILY 0RF lisinopril 10 mg tablet 10 mg PO DAILY 0RF amlodipine 5 mg tablet 2.5 mg PO DAILY 90 Days Qty: 45 3RF
[2022-02-20 16:56] VITALS: PULSE 90; RESP 22; O2SAT 89
[2022-02-20] MEDS: Albuterol Sulfate (0.083%) 2.5 MG/3 ML VIAL.NEB 5 MG INHALE (16:56)
[2022-02-20] MEDS: Albuterol/Iprat 2.5/0.5MG 3 ML AMPUL.NEB INHALE (16:56)
[2022-02-20] MEDS: Magnesium Sulfate/H2O 2 GM/50 ML PIGGYBACK IV (17:19)
[2022-02-20] MEDS: methylPREDNISolone Sod Succ 125 MG/2 ML VIAL IVPUSH (17:19)
[2022-02-20] MEDS: 0.9 % Sodium Chloride 1,000 ML 500 ML IV (17:20)
[2022-02-20 17:21] LABS: MANUAL DIFF FLAG NO
[2022-02-20 17:22] LABS: Basophils Percent Auto 0.2 % (0-2); Eosinophils Absolute Auto 0.1 X10*3/uL (0.0-0.4); Eosinophils Percent Auto 0.7 % (0-4); Hematocrit 42.4 % (42.0-52.0); Hemoglobin 12.9 g/dl (14.0-18.0); Imm Gran Abs Auto 0.02 X10*3/uL (0.00-0.03); Imm Gran Pct Auto 0.2 % (0.0-0.4); Lymphocytes Percent Auto 8.8 % (20-40); Mean Corpuscular HGB Conc 30.4 g/dl (31.0-36.0); Mean Corpuscular Hemoglobin 25.5 pg (27.0-33.0); Mean Platelet Volume 9.6 fL (9.4-12.4); Monocytes Absolute Auto 0.8 X10*3/uL (0.1-1.2); Monocytes Percent Auto 6.9 % (2-11); Neutrophils Percent Auto 83.2 % (45-73); Platelet Count 193 X10*3/uL (160-400); Red Blood Count 5.05 X10*6/uL (4.60-5.80); Red Cell Distribution Width 15.1 % (11.0-16.0); White Blood Count 10.9 X10*3/uL (4.8-10.8)
[2022-02-20 17:43] LABS: Lactic Acid 1.4 mmol/L (0.5-2.0)
[2022-02-20 17:44] LABS: Anion Gap 13 (12-20); Blood Urea Nitrogen 13 mg/dL (9-16); Calcium 8.5 mg/dL (8.4-10.2); Carbon Dioxide 30 mmol/L (22-29); Chloride 101 mmol/L (96-108); Creatinine Clr Calc Pharmacy 83.8; Estimated Glomerular Filt Rate > 60; Glucose Random 112 mg/dL (60-115); Potassium 4.6 mmol/L (3.3-5.1); Sodium 139 mmol/L (135-145)
[2022-02-20] MEDS: cefTRIAXone sodium 1 GM in 0.9 % Sodium Chloride 50 ML IV (17:45)
[2022-02-20] MEDS: Azithromycin 500 MG in 0.9 % Sodium Chloride 250 ML 125 MG IV (18:03)
[2022-02-20 18:25] LABS: Influenza A PCR NEGATIVE (Negative); Influenza B PCR NEGATIVE (Negative); Resp Syncy Virus RNA Qual PCR NEGATIVE (Negative); SARS COV2 PCR INHOUSE NEGATIVE (Negative)
[2022-02-20 18:36] VITALS: BP 109/56; PULSE 98; RESP 20; TEMP 36.8; O2SAT 92
--- NOTE | 2022-02-20 20:42 | PHA.MEDREC ---
Pharmacy Consult ? Medication Reconciliation Pharmacy has completed the medication reconciliation. spoke with pt. Doesn't take lorazepam or melatonin any more because they don't work. I still cannot sleep
[2022-02-20 22:58] VITALS: BP 101/42; PULSE 91; RESP 17; TEMP 37.2; O2SAT 92
[2022-02-20] MEDS: diphenhydrAMINE HCL 50 MG/ML VIAL 25 MG IVPUSH (22:59)
[2022-02-20] MEDS: Heparin Sodium,Porcine 5,000 UNIT/ML VIAL 5000 UNIT SUBCUT (23:00)
[2022-02-21] VITALS (12 sets, daily range): BP systolic 121–153; BP diastolic 49–75; PULSE 79–98; RESP 15–20; TEMP 36.3–37.1; O2SAT 87–94
[2022-02-21 06:31] LABS: Basophils Percent Auto 0.1 % (0-2); Hematocrit 41.5 % (42.0-52.0); Hemoglobin 12.6 g/dl (14.0-18.0); Imm Gran Abs Auto 0.08 X10*3/uL (0.00-0.03); Imm Gran Pct Auto 0.7 % (0.0-0.4); Lymphocytes Absolute Auto 0.8 X10*3/uL (1.2-4.9); Lymphocytes Percent Auto 7.4 % (20-40); MANUAL DIFF FLAG SCAN; Mean Corpuscular HGB Conc 30.4 g/dl (31.0-36.0); Mean Corpuscular Hemoglobin 25.7 pg (27.0-33.0); Mean Corpuscular Volume 84.5 fL (80.0-98.0); Monocytes Absolute Auto 0.2 X10*3/uL (0.1-1.2); Monocytes Percent Auto 1.4 % (2-11); Neutrophils Absolute Auto 9.8 x10*3/uL (2.0-8.3); Neutrophils Percent Auto 90.4 % (45-73); Platelet Count 207 X10*3/uL (160-400); Red Blood Count 4.91 X10*6/uL (4.60-5.80); Red Cell Distribution Width 15.2 % (11.0-16.0); SCAN SMEAR FLAG 1; White Blood Count 10.8 X10*3/uL (4.8-10.8)
--- NOTE | 2022-02-21 06:31 | PM.IMHP ---
History of Present Illness Date of Service: 02/20/22 Chief Complaint: cough, SOB, sore throat 76-year-old male with past medical history of hypertension, CAD, chronic stable angina,COPD, HLD, MAYA, history of prostate cancer status post prostatectomy, who presents to the hospital with complaints of shortness of breath, cough, as well as sore throat. 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 He reports an increase cough, some sputum production, fever of 102 Earlier at home. he initially presented to urgent care but was found to be hypoxic on room air and therefore was sent to the hospital for further management. Patient at this time denies any chest pain, no abdominal pain, no nausea or vomiting, no diarrhea constipation, no urinary symptoms and no lower extremity edema. On arrival to the ED patient was found to be hypoxic at 88% on room air, other vitals were significant for a temp of 101.8 degrees, respiratory rate of 26, stable blood pressure Labs are significant for WBC count of 10.9, COVID-19 negative, influenza negative Chest x-ray shows left lower lobe is alert airspace opacity given his hypoxia patient will be admitted for further management Review of Systems Review of Systems: Yes all other systems are reviewed and are negative [facility] Medical History CAD (coronary artery disease) Chronic stable angina HTN (hypertension) Hyperlipidemia Nephrolithiasis Obesity MAYA (obstructive sleep apnea) Prostate cancer Right bundle branch block (RBBB) on electrocardiogram (ECG) Family History Father CVD (cardiovascular disease) Mother CVD (cardiovascular disease) Brother CVD (cardiovascular disease) Surgical History History of basal cell carcinoma (BCC) excision History of carpal tunnel release History of eye surgery Hx laparoscopic cholecystectomy Hx of cardiac cath Hx of hernia repair Hx of spinal surgery Social History Household Members: Spouse Housing: House Do you presently have visiting nurse or other home services: No Alcohol intake: former Patient Tobacco Use Status: Never used Tobacco Tobacco use type: Cigarette Advance Directives: Yes Advance Directives on File: Yes Advance Directives Date on File: 07/17/21 service: No Current occupational status: retired Meds Allergies Allergy/AdvReac Type Severity Reaction Status Date / Time Aspirin Allergy Unknown rectal Uncoded 02/20/22 16:20 bleeding Active Medications: Current Medications Acetaminophen (Acetaminophen 325 Mg Tablet) 650 mg PO Q6H PRN PRN Reason: Pain, Mild (Pain Scale 1-3) Albuterol/Ipratropium (Albuterol/Iprat 2.5/0.5mg 3 Ml Ampul.Neb) 3 ml INHALE Q4H PRN PRN Reason: Shortness of Breath/Wheezing Albuterol/Ipratropium (Albuterol/Iprat 2.5/0.5mg 3 Ml Ampul.Neb) 3 ml INHALE RQ4H WHILE AWAKE [facility] Allopurinol (Allopurinol 100 Mg Tablet) 100 mg PO DAILY [facility] Atorvastatin Calcium (Atorvastatin Calcium 40 Mg Tablet) 40 mg PO DAILY@1700 [facility] Clopidogrel Bisulfate (Clopidogrel Bisulfate 75 Mg Tablet) 75 mg PO DAILY [facility] Docusate Sodium (Docusate Sodium 100 Mg Capsule) 100 mg PO DAILY PRN PRN Reason: Constipation Gabapentin (Gabapentin 300 Mg Capsule) 300 mg PO BEDTIME [facility] Heparin Sodium (Porcine) (Heparin Sodium,Porcine 5,000 Unit/Ml Vial) 5,000 unit SUBCUT Q12H [facility] Last Admin: 02/20/22 23:00 Dose: 5,000 unit Documented by: Ceftriaxone Sodium 1 gm/ (Sodium Chloride) 50 mls @ 100 mls/hr IV Q24H [facility] Azithromycin 500 mg/ Sodium (Chloride) 250 mls @ 125 mls/hr IV Q24H [facility] Lisinopril (Lisinopril 10 Mg Tablet) 10 mg PO DAILY [facility]; Protocol Methylprednisolone Sodium Succinate (Methylprednisolone Sod Succ 40 Mg/Ml Vial) 40 mg IVPUSH Q12H [facility] Metoprolol Succinate (Metoprolol Succinate Er 50 Mg Tab.Er.24h) 50 mg PO DAILY [facility]; Protocol Nitroglycerin (Nitroglycerin 0.4 Mg Tab.Subl) 0.4 mg SUBLINGUAL Q5M PRN PRN Reason: Chest Pain Omeprazole (Omeprazole 20 Mg Capsule.Dr) 20 mg PO BID@0630,1630 PRN PRN Reason: Acid Reflux Ondansetron HCl (Ondansetron Hcl 4 Mg/2 Ml Vial) 4 mg IVPUSH Q8H PRN PRN Reason: Nausea and Vomiting Pharmacy Consult (Consult Rx Perform Med Rec) 1 each MISCELLANE ONCE PRN PRN Reason: Consult order Sodium Chloride (0.9 % Sodium Chloride Flush 3 Ml Syringe) 3 ml IVFLUSH QSHIFT [facility] Last Admin: 02/21/22 01:02 Dose: Not Given Documented by: Home Medications Medication Instructions Recorded Confirmed Last Taken Type allopurinol 100 mg tablet 100 mg PO DAILY 09/16/20 02/20/22 02/20/22 History lisinopril 10 mg tablet 10 mg PO DAILY 09/16/20 02/20/22 02/20/22 History atorvastatin 40 mg tablet 40 mg PO DAILY@1700 07/16/21 02/20/22 02/19/22 History nitroglycerin 0.4 mg sublingual 0.4 mg SUBLINGUAL Q5M PRN 07/16/21 02/20/22 02/20/22 History tablet omeprazole 20 mg capsule,delayed 20 mg PO BID@0630,1630 PRN 07/16/21 02/20/22 02/20/22 History release amlodipine 5 mg tablet 5 mg PO DAILY 02/20/22 02/20/22 02/20/22 History Physical Exam Vital Signs and Narrative: Vital Signs: Last Vital Signs Temp 98.9 F 02/20/22 22:58 Pulse 87 02/21/22 04:21 Resp 19 02/21/22 04:21 BP 127/56 L 02/21/22 04:21 Pulse Ox 91 L 02/21/22 04:21 BMI result Body Mass Index 37.3 Const: General: cooperative and no acute distress Orientation/consciousness: patient oriented x3 Eyes: General: appearance normal, both eyes and all related structures Pupils: Equal, round and reactive pupils present Resp: Other: decreased air entry, crackles on the left lower lobe Effort & Inspection: normal respiratory effort Cardio: Rate: regular rate Rhythm: regular rhythm GI: Palpation (GI): Soft to palpation Auscultation: normal bowel sounds Skin: General skin exam: no rashes or lesions noted Neuro: General: patient oriented x3 Cranial nerves: Yes Equal, round and reactive pupils present Cognition (Neuro): normal cognition Extrem: General: Yes normal to inspection and Yes no pedal edema Results Labs CBC and Chem 7: 02/20/22 17:17 02/20/22 17:17 Labs: Laboratory Results - last 24 hr 02/20/22 02/20/22 02/20/22 17:17 17:17 17:17 MCV 84.0 MCH 25.5 L MCHC 30.4 L RDW 15.1 Plt Count 193 MPV 9.6 Immature Gran % (Auto) 0.2 Neut % (Auto) 83.2 H Lymph % (Auto) 8.8 L [place] % (Auto) 6.9 Eos % (Auto) 0.7 Baso % (Auto) 0.2 Lymph # (Auto) 1.0 L [place] # (Auto) 0.8 Eos # (Auto) 0.1 Baso # (Auto) 0.0 Abs Immat Gran (auto) 0.02 Absolute Neuts (auto) 9.0 H Absolute Nucleated RBC 0.000 Nucleated RBC % (auto) 0.0 Anion Gap 13 Estim Creat Clear Calc 83.8 Estimated GFR > 60 Random Glucose 112 Lactic Acid Calcium 8.5 Troponin I High Sens 6.0 Influenza Type A (PCR) Influenza Type B (PCR) RSV RNA Qual (PCR) SARS-CoV-2 RNA (RT-PCR) 02/20/22 02/20/22 17:17 17:17 MCV MCH MCHC RDW Plt Count MPV Immature Gran % (Auto) Neut % (Auto) Lymph % (Auto) [place] % (Auto) Eos % (Auto) Baso % (Auto) Lymph # (Auto) [place] # (Auto) Eos # (Auto) Baso # (Auto) Abs Immat Gran (auto) Absolute Neuts (auto) Absolute Nucleated RBC Nucleated RBC % (auto) Anion Gap Estim Creat Clear Calc Estimated GFR Random Glucose Lactic Acid 1.4 Calcium Troponin I High Sens Influenza Type A (PCR) NEGATIVE Influenza Type B (PCR) NEGATIVE RSV RNA Qual (PCR) NEGATIVE SARS-CoV-2 RNA (RT-PCR) NEGATIVE Imaging Radiologist's Impressions: Impressions Chest X-Ray 02/20/22 16:50 FINDINGS/IMPRESSION: Left lower lobe basilar airspace opacity which may reflect aspiration or infection. Recommend follow-up radiographs to ensure resolution. No pneumothorax. No pleural effusion. Normal cardiomediastinal silhouette. Assessment and Plan (1) Sepsis: Status: Acute (2) Community acquired pneumonia: Status: Acute (3) COPD (chronic obstructive pulmonary disease): Status: Acute (4) Acute respiratory failure with hypoxia: Status: Acute Plan 76-year-old male with past medical history of COPD presents the hospital with complaints of shortness of breath found to have pneumonia as well as COPD exacerbation # sepsis - likely secondary to COPD as well as community-acquired pneumonia - will treat with IV antibiotics, - follow cultures # acute hypoxic respiratory failure - secondary to COPD as well as pneumonia - will treat with O2 as required noting his history of COPD - wean oxygen off as tolerated # community-acquired pneumonia - will treat with IV antibiotics - follow cultures # COPD exacerbation - has increased cough, dyspnea, - will treat with Solu-Medrol, DuoNeb p.r.n. as well as schedule # stable angina - following with Cardiology, plan for possible CABG in March - at this time will continue his, Plavix, statin, metoprolol, lisinopril and nitroglycerin p.r.n. # hypertension - stable - continue antihypertensives DVT prophylaxis: Lovenox given patient's hypoxia, as well as sepsis patient will be admitted for IV antibiotics and close monitoring therefore required to night inpatient stay Quality Stroke Does the patient have a stroke diagnosis?: No VTE Prior VTE?: No VTE Risk Level:: Medical - moderate - high VTE Device Contraindication: Treatment Not Indicated VTE Drug Contraindication: N/A - Med Ordered
[2022-02-21 06:44] LABS: Anion Gap 13 (12-20); Blood Urea Nitrogen 20 mg/dL (9-16); Calcium 8.5 mg/dL (8.4-10.2); Carbon Dioxide 26 mmol/L (22-29); Chloride 104 mmol/L (96-108); Creatinine Clr Calc Pharmacy 75.1; Estimated Glomerular Filt Rate > 60; Glucose Random 264 mg/dL (60-115); Potassium 4.9 mmol/L (3.3-5.1); Sodium 138 mmol/L (135-145)
[2022-02-21 07:19] LABS: SLIDE REVIEW VERIFIED
[2022-02-21] MEDS: Albuterol/Iprat 2.5/0.5MG 3 ML AMPUL.NEB INHALE ×4 (08:00→19:55)
--- NOTE | 2022-02-21 08:10 | PM.EVENT ---
Event Note Date of Service: 02/21/22 Event Note: copd/pneumonia Patient already seen hospitalist service this morning patient says that shortness still present slightly better than last night. Has cough Physical exam : unchanged as h&p. Assessment plan: Coordinated in H&P acute hypoxic respiratory failure and sepsis secondary to pneumonia. Continue nebs, steroids, IV antibiotic. Morbid obesity: Encouraged to lose weight, consider outpatient bariatric eval as per pcp.
[2022-02-21] MEDS: Heparin Sodium,Porcine 5,000 UNIT/ML VIAL 5000 UNIT SUBCUT ×2 (10:10→21:51)
[2022-02-21] MEDS: methylPREDNISolone Sod Succ 40 MG/ML VIAL IVPUSH ×2 (10:11→17:59)
[2022-02-21] MEDS: lisinopriL 10 MG TABLET PO (10:11)
[2022-02-21] MEDS: allopurinoL 100 MG TABLET PO (10:11)
[2022-02-21] MEDS: Metoprolol Succinate ER 50 MG TAB.ER.24H PO (10:11)
[2022-02-21] MEDS: Clopidogrel Bisulfate 75 MG TABLET PO (10:11)
[2022-02-21] MEDS: 0.9 % Sodium Chloride Flush 3 ML SYRINGE IVFLUSH ×2 (10:14→17:53)
--- NOTE | 2022-02-21 16:35 | MHC.CM.PN ---
PT REPORTS HE LIVES WITH HIS GF OF 33 YEARS HE REPORTS HE IS INDEPENDENT AND HAS NO SERVICES HE REPORTS HE HAS A CANE HE USES TO STAND FROM THE COUCH BUT DOES NOT NEED IT TO AMBULATE HE HAS A HCP ON FILE AND CONFIRMS HIS PCP IS CARINE TODD IMM DELIVERED, COPY SENT TO [facility] CURRENT DC PLAN IS HOME WITH NO SERVICES TO TRANSPORT
[2022-02-21] MEDS: Atorvastatin Calcium 40 MG TABLET PO (17:53)
[2022-02-21] MEDS: cefTRIAXone sodium 1 GM in 0.9 % Sodium Chloride 50 ML IV (17:59)
--- NOTE | 2022-02-21 18:09 | PC.NURSE ---
report given to JOSELO Rosado. pt will be transported to room 370. antibiotic infusing, vss.
[2022-02-21] MEDS: Azithromycin 500 MG in 0.9 % Sodium Chloride 250 ML 125 MG IV (19:30)
[2022-02-21] MEDS: Gabapentin 300 MG CAPSULE PO (21:51)
[2022-02-22] VITALS (11 sets, daily range): BP systolic 119–172; BP diastolic 54–79; PULSE 74–87; RESP 16–20; TEMP 36.5–37.1; O2SAT 90–94
[2022-02-22] MEDS: 0.9 % Sodium Chloride Flush 3 ML SYRINGE IVFLUSH ×4 (01:24→21:05)
[2022-02-22] MEDS: methylPREDNISolone Sod Succ 40 MG/ML VIAL IVPUSH ×2 (06:38→17:01)
[2022-02-22] MEDS: Albuterol/Iprat 2.5/0.5MG 3 ML AMPUL.NEB INHALE ×4 (08:08→19:59)
[2022-02-22] MEDS: Clopidogrel Bisulfate 75 MG TABLET PO (08:43)
[2022-02-22] MEDS: Metoprolol Succinate ER 50 MG TAB.ER.24H PO (08:43)
[2022-02-22] MEDS: lisinopriL 10 MG TABLET PO (08:43)
[2022-02-22] MEDS: allopurinoL 100 MG TABLET PO (08:43)
[2022-02-22] MEDS: Heparin Sodium,Porcine 5,000 UNIT/ML VIAL 5000 UNIT SUBCUT ×2 (09:40→21:03)
--- NOTE | 2022-02-22 13:27 | P.PNIM_ITS ---
Subjective Subjective Date of Service: 02/22/22 Interval History: sepsis / copd excerebation Review of Systems Shortness of breath seems similar to yesterday, get shortness of breath with exertion also desats with little walking has cough. Physical Exam Vital Signs: Vital Signs: Last Vital Signs Temp 98.4 F 02/22/22 11:55 Pulse 81 02/22/22 11:56 Resp 20 02/22/22 11:56 BP 135/74 02/22/22 11:55 Pulse Ox 93 02/22/22 11:55 BMI result Body Mass Index 37.3 Appearance: Alert.? Oriented X3.? not in distress.? cvs: rrr, [id number] , no murmur res: air entry diminshed , b/l wheezing abd: no rebound or guarding ,nt, bs present. ext pulses present , no cyanosis . neuro: axo3 , nonfocal. Objective Data Active Medications Acetaminophen (Acetaminophen 325 Mg Tablet) 650 mg PO Q6H PRN PRN Reason: Pain, Mild (Pain Scale 1-3) Albuterol/Ipratropium (Albuterol/Iprat 2.5/0.5mg 3 Ml Ampul.Neb) 3 ml INHALE Q4H PRN PRN Reason: Shortness of Breath/Wheezing Albuterol/Ipratropium (Albuterol/Iprat 2.5/0.5mg 3 Ml Ampul.Neb) 3 ml INHALE RQ4H WHILE AWAKE [facility] Last Admin: 02/22/22 11:54 Dose: 3 ml Documented by: KISHA Allopurinol (Allopurinol 100 Mg Tablet) 100 mg PO DAILY [facility] Last Admin: 02/22/22 08:43 Dose: 100 mg Documented by: ERLIN Atorvastatin Calcium (Atorvastatin Calcium 40 Mg Tablet) 40 mg PO DAILY@1700 [facility] Last Admin: 02/21/22 17:53 Dose: 40 mg Documented by: FARHAN Clopidogrel Bisulfate (Clopidogrel Bisulfate 75 Mg Tablet) 75 mg PO DAILY [facility] Last Admin: 02/22/22 08:43 Dose: 75 mg Documented by: ERLIN Docusate Sodium (Docusate Sodium 100 Mg Capsule) 100 mg PO DAILY PRN PRN Reason: Constipation Gabapentin (Gabapentin 300 Mg Capsule) 300 mg PO BEDTIME [facility] Last Admin: 02/21/22 21:51 Dose: 300 mg Documented by: VERONICA Heparin Sodium (Porcine) (Heparin Sodium,Porcine 5,000 Unit/Ml Vial) 5,000 unit SUBCUT Q12H [facility] Last Admin: 02/22/22 09:40 Dose: 5,000 unit Documented by: ERLIN Ceftriaxone Sodium 1 gm/ (Sodium Chloride) 50 mls @ 100 mls/hr IV Q24H [facility] Last Infusion: 02/21/22 18:33 Dose: 0 mls/hr Documented by: ERLIN Azithromycin 500 mg/ Sodium (Chloride) 250 mls @ 125 mls/hr IV Q24H [facility] Last Infusion: 02/21/22 21:38 Dose: 0 mls/hr Documented by: VERONICA Lisinopril (Lisinopril 10 Mg Tablet) 10 mg PO DAILY [facility]; Protocol Last Admin: 02/22/22 08:43 Dose: 10 mg Documented by: ERLIN Methylprednisolone Sodium Succinate (Methylprednisolone Sod Succ 40 Mg/Ml Vial) 40 mg IVPUSH Q12H [facility] Last Admin: 02/22/22 06:38 Dose: 40 mg Documented by: CLAUS Metoprolol Succinate (Metoprolol Succinate Er 50 Mg Tab.Er.24h) 50 mg PO DAILY [facility]; Protocol Last Admin: 02/22/22 08:43 Dose: 50 mg Documented by: ERLIN Nitroglycerin (Nitroglycerin 0.4 Mg Tab.Subl) 0.4 mg SUBLINGUAL Q5M PRN PRN Reason: Chest Pain Omeprazole (Omeprazole 20 Mg Capsule.Dr) 20 mg PO BID@0630,1630 PRN PRN Reason: Acid Reflux Ondansetron HCl (Ondansetron Hcl 4 Mg/2 Ml Vial) 4 mg IVPUSH Q8H PRN PRN Reason: Nausea and Vomiting Pharmacy Consult (Consult Rx Perform Med Rec) 1 each MISCELLANE ONCE PRN PRN Reason: Consult order Sodium Chloride (0.9 % Sodium Chloride Flush 3 Ml Syringe) 3 ml IVFLUSH QSHIFT [facility] Last Admin: 02/22/22 06:40 Dose: 3 ml Documented by: CLAUS Labs CBC & Chem 7: 02/21/22 06:19 02/21/22 05:49 Microbiology Microbiology Results: Microbiology 02/20/22 17:40 Blood Culture - Preliminary Blood - Venous No growth after 24 hours. 02/20/22 17:17 Blood Culture - Preliminary Blood - Venous No growth after 24 hours. Assessment and Plan (1) Community acquired pneumonia: Status: Acute (2) Acute respiratory failure with hypoxia: Status: Acute (3) COPD (chronic obstructive pulmonary disease): Status: Acute Plan 76-year-old male with past medical history of COPD presents the hospital with complaints of shortness of breath found to have pneumonia as well as COPD exacerbation 1. sepsis-? likely secondary to COPD as well as community-acquired pneumonia improving, blood cultures @ 24 hr neg continue IV antibiotics, 2. acute hypoxic respiratory failure still sob with execersion and desats , talks in short sentences -? secondary to COPD as well as? pneumonia -? will treat with O2 as required noting his history of COPD -? wean oxygen off as tolerated 3.? community-acquired pneumonia -? will treat with IV antibiotics -? follow cultures 4.? COPD exacerbation -? has increased cough, dyspnea, -? will treat with Solu-Medrol, DuoNeb p.r.n. as well as schedule 5.? stable angina -? following with Cardiology, plan for possible CABG in May continue Plavix, statin, metoprolol, lisinopril and nitroglycerin p.r.n. 6. hypertension -? stable -? continue antihypertensives 7.Morbid obesity:? Encouraged to lose weight, consider outpatient bariatric eval as per pcp. ?DVT prophylaxis: Lovenox inpatient need : copd exceerbation/pneumonia - on iv steriods, iv antibiotics Quality Stroke Does the patient have a stroke diagnosis?: No VTE Prior VTE?: No VTE Risk Level:: Medical - moderate - high VTE Device Contraindication: Treatment Not Indicated VTE Drug Contraindication: N/A - Med Ordered
[2022-02-22] MEDS: Atorvastatin Calcium 40 MG TABLET PO (16:57)
[2022-02-22] MEDS: cefTRIAXone sodium 1 GM in 0.9 % Sodium Chloride 50 ML IV (17:01)
[2022-02-22] MEDS: Azithromycin 500 MG in 0.9 % Sodium Chloride 250 ML 125 MG IV (17:44)
[2022-02-22] MEDS: Gabapentin 300 MG CAPSULE PO (21:03)
[2022-02-22] MEDS: Zolpidem Tartrate 5 MG TABLET PO (22:15)
[2022-02-23 03:32] VITALS: BP 141/72; PULSE 87; RESP 20; TEMP 37; O2SAT 90
[2022-02-23] MEDS: methylPREDNISolone Sod Succ 40 MG/ML VIAL IVPUSH (05:38)
[2022-02-23 06:51] VITALS: BP 151/78; PULSE 79; RESP 20; TEMP 36.1; O2SAT 91
[2022-02-23] MEDS: Albuterol/Iprat 2.5/0.5MG 3 ML AMPUL.NEB INHALE ×2 (07:52→11:13)
[2022-02-23 07:54] VITALS: PULSE 79; RESP 18; O2SAT 91
[2022-02-23] MEDS: allopurinoL 100 MG TABLET PO (08:01)
[2022-02-23] MEDS: lisinopriL 10 MG TABLET PO (08:01)
[2022-02-23] MEDS: 0.9 % Sodium Chloride Flush 3 ML SYRINGE IVFLUSH (08:02)
[2022-02-23] MEDS: Clopidogrel Bisulfate 75 MG TABLET PO (08:02)
[2022-02-23] MEDS: Metoprolol Succinate ER 50 MG TAB.ER.24H PO (08:02)
--- NOTE | 2022-02-23 09:45 | MHC.CLN ---
NUTRITION DIET CHANGED TO CARDIAC DUE TO HX CORONARY ARTERY DISEASE.
[2022-02-23] MEDS: Heparin Sodium,Porcine 5,000 UNIT/ML VIAL 5000 UNIT SUBCUT (10:48)
[2022-02-23 11:08] VITALS: BP 147/78; PULSE 74; RESP 74; TEMP 36.1; O2SAT 93
[2022-02-23 11:14] VITALS: PULSE 74; RESP 18; O2SAT 3
--- NOTE | 2022-02-23 11:27 | PM.DS ---
DS: Providers Provider Date of Service: 02/23/22 Date of admission: 02/20/22 21:57 Primary care physician: Jaxon Coffman MD DS: Diagnosis Discharge Diagnosis (1) Community acquired pneumonia: Status: Acute (2) Acute respiratory failure with hypoxia: Status: Acute (3) COPD (chronic obstructive pulmonary disease): Status: Acute DS: Summary Hospital Course Hospital Course: Hospital course: 76-year-old male with past medical history of hypertension,? CAD, chronic stable angina,COPD, HLD, MAYA, history of prostate cancer status post prostatectomy, who presents to the hospital with complaints of shortness of breath, cough, as well as sore throat.? 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 He reports an increase cough, some sputum production, fever of 102? Earlier at home.? he initially presented to urgent care but was found to be hypoxic on room air and therefore was sent to the hospital for further management.? Patient at this time denies any chest pain, no abdominal pain, no nausea or vomiting, no diarrhea constipation, no urinary symptoms and no lower extremity edema.? On arrival to the ED patient was found to be hypoxic at 88% on room air,? other vitals were significant for a temp of 101.8 degrees, respiratory rate of 26, stable blood pressure Labs are significant for? WBC count of 10.9, COVID-19 negative, influenza negative Chest x-ray shows? left lower lobe is alert airspace opacity ?given his hypoxia patient will be admitted for further management Hospital course:Patient was admitted for acute hypoxemic respiratory failure and sepsis secondary to pneumonia and COPD exacerbation-subsequently started on IV antibiotics, steroids, nebs: Seems to be improved significantly ,walking without oxygen and saturating fine. Patient will be going home with p.o. steroid and antibiotic, please complete the course, please follow-up with chest imaging study in 3-4 week with PCP to see resolution of pneumonia. Above management discussed with patient in detail he understand and in agreement with above plan. Time Spent with Patient Time attestation: Total time spent providing and/or coordinating discharge services: Discharge coordination time: Greater than 30 minutes Quality: Safe Use of Opioids Does Pt have an Active Cancer Diagnosis on the Problem List?: No Quality: Stroke Does the patient have a stroke diagnosis?: No Physical Exam Vital Signs: Vital Signs: Last Vital Signs Temp 97 F 02/23/22 11:08 Pulse 74 02/23/22 11:14 Resp 18 02/23/22 11:14 BP 147/78 H 02/23/22 11:08 Pulse Ox 93 02/23/22 11:08 BMI result Body Mass Index 37.3 DS: Data Data Completed and Pending Labs on day of discharge: Preliminary micro results at discharge 02/20/22 17:40 Blood Culture - Preliminary Blood - Venous No growth after 48 hours. 02/20/22 17:17 Blood Culture - Preliminary Blood - Venous No growth after 48 hours. Discharge Plan Discharge Patient Disposition: Home, Self-Care Discharge Diagnosis: copd excerebation , pneumonia Referrals: Jaxon Coffman MD [Primary Care Provider] - 1 Week Discharge Medications: New cefuroxime axetil 500 mg tablet 500 mg PO BID Qty: 14 0RF azithromycin 500 mg tablet 500 mg PO DAILY 5 Days Qty: 5 0RF prednisone 20 mg tablet 40 mg PO DAILY Qty: 8 0RF albuterol sulfate 90 mcg/actuation HFA aerosol inhaler 1 inh inhalation QID PRN (Reason: bronchospasm) Qty: 8.5 0RF fluticasone propion-salmeterol [AirDuo RespiClick] 113-14 mcg/actuation aerosol powdr breath activated 1 inh inhalation BID Qty: 1 0RF Continued metoprolol succinate [Toprol XL] 50 mg tablet extended release 24 hr 50 mg PO DAILY Qty: 90 1RF clopidogrel 75 mg tablet 75 mg PO DAILY Qty: 30 6RF gabapentin [Neurontin] 300 mg capsule 300 mg PO BEDTIME Qty: 30 0RF nitroglycerin 0.4 mg Tablet, Sublingual 0.4 mg SUBLINGUAL Q5M PRN (Reason: Chest Pain) 0RF atorvastatin 40 mg tablet 40 mg PO DAILY@1700 0RF omeprazole 20 mg capsule,delayed release(DR/EC) 20 mg PO BID@0630,1630 PRN (Reason: Acid Reflux) 0RF Rx Instructions: Please obtain refills from PCP amlodipine 5 mg tablet 5 mg PO DAILY 0RF allopurinol 100 mg tablet 100 mg PO DAILY 0RF lisinopril 10 mg tablet 10 mg PO DAILY 0RF No Action ketoconazole 2 % cream topical BID PRN0RF Discharge Orders: Discharge Order (Routine); Ordered 02/23/22 Ordered By: Rosy Stokes Diet: advance to usual diet Activity on Discharge: As tolerated Stand Alone Forms: Patient Portal Discharge page Care Plan Goals: Patient was admitted for acute hypoxemic respiratory failure and sepsis secondary to pneumonia and COPD exacerbation-subsequently started on IV antibiotics, steroids, nebs: Seems to be improved significantly ,walking without oxygen and saturating fine. Patient will be going home with p.o. steroid and antibiotic, please complete the course, please follow-up with chest imaging study in 3-4 week with PCP to see resolution of pneumonia. Above management discussed with patient in detail he understand and in agreement with above plan. Health Concerns: As above. Plan of Treatment: As above. Assessment: As above. Patient Instructions: Community Acquired Pneumonia (ED) Discharge Date/Time: 02/23/22 14:23
--- NOTE | 2022-02-23 11:33 | MHC.CM.PN ---
PATIENT IS DISCHARGED HOME - SELF CARE
== END 2022-02-23 14:23 | disposition home or self-care (01) | DRG 871 ==
LOC: HO.ED 19:00 → HO.EDOVER 22:03 → HO.S3 02-21 16:38
PROVIDERS: Admitting Provider Internal Medicine; Emergency Provider Emergency Medicine; PCP Internal Medicine; Visit Provider Internal Medicine
DX: A41.9 Sepsis, unspecified organism (principal); J18.9 Pneumonia, unspecified organism; J96.01 Acute respiratory failure with hypoxia; J44.0 Chronic obstructive pulmonary disease with (acute) lower respiratory infection; E78.5 Hyperlipidemia, unspecified; G47.33 Obstructive sleep apnea (adult) (pediatric); E77.8 Other disorders of glycoprotein metabolism; E66.01 Morbid (severe) obesity due to excess calories; Z68.37 Body mass index [BMI] 37.0-37.9, adult; I25.118 Atherosclerotic heart disease of native coronary artery with other forms of angina pectoris; Z85.46 Personal history of malignant neoplasm of prostate; Z20.822 Contact with and (suspected) exposure to COVID-19; Z90.79 Acquired absence of other genital organ(s); Z79.02 Long term (current) use of antithrombotics/antiplatelets; Z79.51 Long term (current) use of inhaled steroids; Z79.899 Other long term (current) drug therapy
CPT/HCPCS: 0241U; 36415; 71045; 80048; 83605; 84484; 85025; 87040; 93005; 94640; 94644; 96365; 96366; 96375; 99285; J0456; J0696; J1200; J2920; J2930; J3475

== ENCOUNTER → 2022-02-24 08:44 | Outpatient (BNVA) | payer MEDICARE, SELFPAY ==
[2022-02-03 06:38] VITALS: BP 124/60; BMI 37.7
== END ==
PROVIDERS: PCP Internal Medicine; Visit Provider Hospitalist
DX: J44.9 Chronic obstructive pulmonary disease, unspecified (principal); J18.9 Pneumonia, unspecified organism; I25.10 Atherosclerotic heart disease of native coronary artery without angina pectoris; Z79.899 Other long term (current) drug therapy
CPT/HCPCS: 94618; 99212

== ENCOUNTER 2022-03-12 16:15 | Outpatient (REF) | payer MEDICARE, SELFPAY ==
[2022-02-03 06:38] VITALS: BP 124/60; BMI 37.7
--- NOTE | ~2022-03-12 | XR_ITS ---
EXAMINATION: XR CHEST CLINICAL INFORMATION: Chronic obstructive pulmonary disease. COMPARISON: 02/20/2022 TECHNIQUE: 2 views of the chest were obtained. FINDINGS: The lungs are well expanded. There is no focal consolidation, edema, or effusion. No pneumothorax. The cardiomediastinal silhouette is within normal limits of size with a calcified aorta. No acute osseous abnormality. Degenerative changes of the spine. XR/XR chest 2V IMPRESSION: Clear lungs.
== END 2022-03-12 16:16 | disposition home or self-care (01) ==
LOC: HO.XRAY 16:15
PROVIDERS: PCP Internal Medicine; Visit Provider Internal Medicine
DX: J44.9 Chronic obstructive pulmonary disease, unspecified (principal); Z87.01 Personal history of pneumonia (recurrent)
CPT/HCPCS: 71046

== ENCOUNTER 2022-03-20 12:13 | Inpatient (IN) | payer MEDICARE, SELFPAY ==
[2022-02-03 06:38] VITALS: BP 124/60; BMI 37.7
[2022-03-20] VITALS (9 sets, daily range): BP systolic 98–131; BP diastolic 50–70; PULSE 66–97; RESP 14–22; TEMP 36.4–37.2; O2SAT 88–95; BMI 36.6
--- NOTE | 2022-03-20 | ECG_ITS ---
Test Reason : SOB Blood Pressure : / mmHG Vent. Rate : 088 BPM Atrial Rate : 088 BPM P-R Int : 154 ms QRS Dur : 136 ms QT Int : 398 ms P-R-T Axes : 032 -35 018 degrees QTc Int : 481 ms Sinus rhythm with Premature atrial complexes Left axis deviation Right bundle branch block Abnormal ECG When compared with ECG of 20-FEB-2022 17:13, No significant change was found Referred By: Generic ED Physician Electronically Signed By:AUBREY WHITE MD
--- NOTE | ~2022-03-20 | XR_ITS ---
EXAMINATION: XR CHEST CLINICAL INFORMATION: Dyspnea. COMPARISON: 03/12/2022 chest radiographs. TECHNIQUE: Frontal view of the chest was obtained. FINDINGS: Patchy opacities are seen at the left lung base. Mild linear markings are seen at the right lung base. The heart and mediastinal structures are unremarkable. XR/XR chest 1V IMPRESSION: Patchy opacities at the left lung base most consistent with infiltrates.
[2022-03-20 12:39] LABS: MANUAL DIFF FLAG NO
[2022-03-20 12:46] LABS: Basophils Percent Auto 0.1 % (0-2); Eosinophils Percent Auto 0.1 % (0-4); Hematocrit 39.8 % (42.0-52.0); Hemoglobin 12.2 g/dl (14.0-18.0); Imm Gran Abs Auto 0.13 X10*3/uL (0.00-0.03); Imm Gran Pct Auto 0.8 % (0.0-0.4); Lymphocytes Percent Auto 5.8 % (20-40); Mean Corpuscular HGB Conc 30.7 g/dl (31.0-36.0); Mean Corpuscular Hemoglobin 25.8 pg (27.0-33.0); Mean Corpuscular Volume 84.3 fL (80.0-98.0); Mean Platelet Volume 10.1 fL (9.4-12.4); Monocytes Absolute Auto 0.6 X10*3/uL (0.1-1.2); Monocytes Percent Auto 3.8 % (2-11); Neutrophils Absolute Auto 15.2 x10*3/uL (2.0-8.3); Neutrophils Percent Auto 89.4 % (45-73); Platelet Count 241 X10*3/uL (160-400); Red Blood Count 4.72 X10*6/uL (4.60-5.80); Red Cell Distribution Width 15.7 % (11.0-16.0)
--- NOTE | 2022-03-20 12:55 | ED.SOB ---
HPI - SOB/Dyspnea General Chief Complaint: Dyspnea Stated Complaint: Difficulty breathing on 3L/Fever Time Seen by Provider: 03/20/22 12:55 Source: patient and family () Mode of arrival: EMS Limitations: no limitations History of Present Illness HPI Narrative: 76-year-old male presents for dyspnea that started 05/20/2030 this morning. Patient had chest pain at 07:30 this morning felt confused, dizzy, lightheaded. This was not exertional, he was just sitting down when it happened. He has no chest pain now but continues to feel short of breath. And patient had chills last night and a fever of 100.1F at home. Says that his cough continues and he feels junky in his throat. Patient was hospitalized for pneumonia and discharged 02/23/2022, had 2 stents placed at [facility] 03/09/2022. MD elicited complaint: shortness of breath, cough and chest pain Pertinent past history: COPD, pneumonia, aspiration and sepsis Onset (ago): hour(s) (6) Context: recent illness Exacerbating factors: nothing Known history of: COPD, recurrent pneumonia and aspiration pneumonia Associated symptoms: fever, cough, wheezing, chest congestion and dizziness Treatment prior to arrival: oxygen Related Data Home oxygen amount: 3 liters Home Medications Medication Instructions Recorded Confirmed allopurinol 100 mg tablet 100 mg PO DAILY 09/16/20 03/20/22 lisinopril 10 mg tablet 10 mg PO DAILY 09/16/20 03/20/22 atorvastatin 40 mg tablet 40 mg PO DAILY@1700 07/16/21 03/20/22 nitroglycerin 0.4 mg sublingual 0.4 mg SUBLINGUAL Q5M PRN 07/16/21 03/20/22 tablet omeprazole 20 mg capsule,delayed 20 mg PO BID@0630,1630 PRN 07/16/21 03/20/22 release amlodipine 5 mg tablet 5 mg PO DAILY 02/20/22 03/20/22 aspirin 81 mg tablet,delayed 81 mg PO DAILY 03/20/22 03/20/22 release cyanocobalamin (vitamin B-12) 1,000 mcg PO DAILY 03/20/22 03/20/22 1,000 mcg tablet lorazepam 0.5 mg tablet 1 tab PO BEDTIME 03/20/22 03/20/22 Previous Rx's Medication Instructions Recorded gabapentin 300 mg capsule 300 mg PO BEDTIME #30 cap 03/30/21 (Neurontin) metoprolol succinate 50 mg 50 mg PO DAILY #90 tab 09/30/21 tablet,extended release 24 hr (Toprol XL) albuterol sulfate 90 mcg/actuation 1 inh INHALATION QID PRN #8.5 g 02/23/22 aerosol inhaler fluticasone 113 mcg-salmeterol 14 1 inh INHALATION BID #1 ea 02/23/22 mcg/actuation breath activated powdr (AirDuo RespiClick) ipratropium 0.5 mg-albuterol 3 mg 3 ml INHALATION BID 30 Days #180 ml 02/24/22 (2.5 mg base)/3 mL nebulization soln clopidogrel 75 mg tablet 75 mg PO DAILY #30 tab 03/10/22 Allergies Allergy/AdvReac Type Severity Reaction Status Date / Time Aspirin Allergy Unknown rectal Uncoded 02/24/22 09:19 bleeding Review of Systems Constitutional: Constitutional: Denies body ache(s), Reports chills, Reports fatigue, Reports fever(s), Denies headache(s), Denies malaise and Denies weakness Eyes: Eyes: Denies diplopia ENT: Denies vertigo, Reports dizziness, Denies otalgia, Denies headache(s), Denies mouth pain and Denies sore throat Cardiovascular: Cardiovascular: Reports chest pain, Denies syncope, Denies leg edema, Denies lightheadedness, Denies Loss of Consciousness, Denies palpitations and Reports dyspnea Respiratory: Respiratory: Reports chest congestion, Reports cough, Reports dyspnea and Reports wheezing Gastrointestinal: Gastrointestinal: Denies abdominal pain, Denies hematochezia, Denies constipation, Denies diarrhea, Reports nausea and Denies vomiting Genitourinary: Genitourinary: Reports no additional male genitourinary complaints Musculoskeletal: Musculoskeletal: Reports no additional musculoskeletal complaints Neurologic: Denies confusion, Denies vertigo, Reports dizziness, Denies syncope, Denies headache(s) and Denies weakness Psychiatric: Psychiatric: Denies anxiety, Denies confusion and Denies depression Endocrine: Endocrine: Reports fatigue and Denies palpitations Allergic/Immunologic: Allergic/Immunologic: Reports wheezing PMFSH Past Medical History Medical History CAD (coronary artery disease) Chronic stable angina HTN (hypertension) Hyperlipidemia Nephrolithiasis Obesity MAYA (obstructive sleep apnea) Pneumonia Prostate cancer Right bundle branch block (RBBB) on electrocardiogram (ECG) Surgical History History of basal cell carcinoma (BCC) excision History of carpal tunnel release History of eye surgery Hx laparoscopic cholecystectomy Hx of cardiac cath Hx of hernia repair Hx of spinal surgery Family History Family History Father CVD (cardiovascular disease) Mother CVD (cardiovascular disease) Brother CVD (cardiovascular disease) Social History Social History Household Members: None Housing: House Do you presently have visiting nurse or other home services: No Alcohol intake: former Patient Tobacco Use Status: Never used Tobacco Tobacco use type: Cigarette Advance Directives: Yes Advance Directives on File: Yes Advance Directives Date on File: 07/17/21 service: No Current occupational status: retired Physical Exam Vital Signs: Vital Signs: Last Vital Signs Temp 97.8 F 03/20/22 19:41 Pulse 69 03/20/22 20:39 Resp 14 03/20/22 20:39 BP 117/53 L 03/20/22 20:39 Pulse Ox 93 03/20/22 20:39 Oxygen Flow Rate 3 03/20/22 12:17 BMI result Body Mass Index 36.6 Const: General: alert and awake; No confusion Nutritional Appearance: obese centrally obese Orientation/consciousness: patient oriented x3 and No confusion Limitations: no limitations HEENT: Head: Yes normal to inspection, Yes normocephalic and Yes atraumatic Ears: hearing grossly normal bilaterally, external ears normal, TM's normal bilaterally and EAC's normal General nose exam: Normal external nose present Face and sinus: Yes normal facial exam and Yes sinuses nontender Mouth: Normal oral and palatal mucosa present Throat: Yes posterior oropharynx normal Eyes: Conjunctivae: conjunctivae normal Pupils: Equal, round and reactive pupils present EOM: EOMs intact bilaterally Neck: Neck: Yes full ROM, Yes no lymphadenopathy and Yes supple Resp: Effort & Inspection: normal respiratory effort and able to speak in complete sentences Auscultation: crackles, no rales, rhonchi and wheezes Cardio: Rate: regular rate Rhythm: regular rhythm Heart sounds: S1 normal heart sound present and S2 normal heart sound present GI: Inspection: Yes Abdominal panniculus present and Yes obesity Palpation (GI): Soft to palpation, nontender, no guarding and not rigid Percussion: Yes normal to percussion Auscultation: normal bowel sounds Skin: General skin exam: no rashes or lesions noted Neuro: General: patient oriented x3 and No confusion Cranial nerves: Yes Equal, round and reactive pupils present Extrem: General: Yes normal to inspection and Yes full ROM Psych: Appearance: grossly normal Affect: normal affect Attitude: cooperative Thought process: Normal thought process present Course Course Course Narrative: 13:30 76-year-old male presents for dyspnea that started 05/20/2030 this morning. Patient had chest pain at 07:30 this morning felt confused, dizzy, lightheaded. He has no chest pain now but continues to feel short of breath. And patient had chills last night and a fever of 100.1F at home. Says that his cough continues and he feels junky in his throat. Patient was hospitalized in early February 2022, discharged February 23 for 4 day stay for acute respiratory failure with hypoxia, pneumonia. Patient has been on oxygen since he has been home, he is on 3 L, states that prior to his February hospitalization he was not on oxygen. Patient has coronary artery disease with 3 vessel disease he had 2 stents placed at [facility] March 09. He sees Dr. Gale for Cardiology. Past medical history includes coronary artery disease, chronic stable angina, pneumonia, obesity, COPD, sepsis, prostate cancer, obstructive sleep apnea, obesity, right bundle branch block, hypertension, hyperlipidemia On exam, patient is able to speak in full sentences, lungs are crackly rhonchorous and wheezy, patient's blood pressure is 94/46, with a map of 62. Respirations mildly elevated at 21, patient has mild work of breathing. Patient is satting 91% on his usual 3 L of oxygen, states at home he only sats 89% at baseline. Patient has a white blood cell count 17, chest x-ray shows pneumonia, patient is short of breath, blood pressure is low, suspect pneumonia at this time. Got blood cultures lactic, starting fluids, started Zosyn, vanco, Levaquin for hospital-acquired pneumonia. Patient has had antibiotics in the last 90 days. Will give more fluids once patient's BNP returns, concern for fluid overload. No history heart failure, however patient's cardiac disease could predispose him but I do not want to push him into fluid overload and pulmonary edema Asked payroll secretary to call a sepsis alert on this patient Reevaluation(s) Reevaluation #1: EKG is similar to EKG of 02/20/2022, right bundle-branch block, sinus with premature supra ventricular complexes Leukocytosis at 17, blood sugar has returned at 478, sodium 133, creatinine 1.49, potassium is 5. Will give 10 units of insulin Patient does not have a diagnosis of diabetes, bicarb is only 25, however will get VBG and acetone to rule out any metabolic acidosis FINDINGS: Patchy opacities are seen at the left lung base. Mild linear markings are seen at the right lung base. The heart and mediastinal structures are unremarkable. XR/XR chest 1V IMPRESSION: Patchy opacities at the left lung base most consistent with infiltrates. Time: 14:21 Reevaluation #2: Patient's troponin 12.3, it has been 6 hours since he has had symptoms, BNP 41, D-dimer is negative. Starting fluids for sepsis now that his BNP is not elevated Patient's VBG shows a pH of 7.35, bicarb mildly elevated at 32. Patient has negative acetone, 20 minutes after insulin given fingerstick is 442. Will get another fingerstick after patient gets his fluids. Reevaluation #3: Repeat troponin 9.6, no delta change, repeat lactic acid 2.5. Patient's blood pressure has improved, is now 102/60. Will get patient admitted Time: 20:36 Additional Reevaluation(s): Dr Cabrera will admit MDM - SOB/Dyspnea Lab Data Result diagrams: 03/20/22 12:34 03/20/22 12:35 Labs: Lab Results 03/20/22 03/20/22 03/20/22 Range/Units 12:34 12:35 13:31 WBC 17.0 H (4.8-10.8) X10*3/uL RBC 4.72 (4.60-5.80) X10*6/uL Hgb 12.2 L (14.0-18.0) g/dl Hct 39.8 L (42.0-52.0) % MCV 84.3 (80.0-98.0) fL MCH 25.8 L (27.0-33.0) pg MCHC 30.7 L (31.0-36.0) g/dl RDW 15.7 (11.0-16.0) % Plt Count 241 (160-400) X10*3/uL MPV 10.1 (9.4-12.4) fL Immature Gran % (Auto) 0.8 H (0.0-0.4) % Neut % (Auto) 89.4 H (45-73) % Lymph % (Auto) 5.8 L (20-40) % [place] % (Auto) 3.8 (2-11) % Eos % (Auto) 0.1 (0-4) % Baso % (Auto) 0.1 (0-2) % Lymph # (Auto) 1.0 L (1.2-4.9) X10*3/uL [place] # (Auto) 0.6 (0.1-1.2) X10*3/uL Eos # (Auto) 0.0 (0.0-0.4) X10*3/uL Baso # (Auto) 0.0 (0.0-0.2) X10*3/uL Abs Immat Gran (auto) 0.13 H (0.00-0.03) X10*3/uL Absolute Neuts (auto) 15.2 H (2.0-8.3) x10*3/uL Absolute Nucleated RBC 0.000 (0.0-0.012) X10*3/uL Nucleated RBC % (auto) 0.0 (0.0-0.2) /100WBC D-Dimer High Sensitivty NG/ML Sodium 133 L (135-145) mmol/L Potassium 5.0 (3.3-5.1) mmol/L Chloride 98 (96-108) mmol/L Carbon Dioxide 25 (22-29) mmol/L Anion Gap 15 (12-20) BUN 28 H (9-16) mg/dL Creatinine 1.49 H (0.5-1.4) mg/dL Estim Creat Clear Calc 52.8 Estimated GFR 46 POC Glucose (60-115) mg/dL Random Glucose 478 H* (60-115) mg/dL Lactic Acid (0.5-2.0) mmol/L Lactic Acid F/U @ 2Hr (0.5-2.0) mmol/L Calcium 8.1 L (8.4-10.2) mg/dL Troponin I High Sens 12.3 D (<3.5-35.0) ng/L B-Natriuretic Peptide 41 (<100) pg/mL Urine Color Urine Appearance Urine pH (5.0-8.0) Ur Specific [place] (1.005-1.025) Urine Protein (NEG-TRACE) MG/DL Urine Glucose (UA) (NEG) MG/DL Urine Ketones (NEG) MG/DL Urine Blood (NEG) Urine Nitrite (NEG) Ur Leukocyte Esterase (NEG) Acetone, Qual (Negative) COVID-19 (LALA) (Negative) COVID-19 Clin Com Influenza Type A (LUIS) (Negative) Influenza Type B (LUIS) (Negative) Influenza A & B Note 03/20/22 03/20/22 03/20/22 Range/Units 13:31 13:31 13:34 WBC (4.8-10.8) X10*3/uL RBC (4.60-5.80) X10*6/uL Hgb (14.0-18.0) g/dl Hct (42.0-52.0) % MCV (80.0-98.0) fL MCH (27.0-33.0) pg MCHC (31.0-36.0) g/dl RDW (11.0-16.0) % Plt Count (160-400) X10*3/uL MPV (9.4-12.4) fL Immature Gran % (Auto) (0.0-0.4) % Neut % (Auto) (45-73) % Lymph % (Auto) (20-40) % [place] % (Auto) (2-11) % Eos % (Auto) (0-4) % Baso % (Auto) (0-2) % Lymph # (Auto) (1.2-4.9) X10*3/uL [place] # (Auto) (0.1-1.2) X10*3/uL Eos # (Auto) (0.0-0.4) X10*3/uL Baso # (Auto) (0.0-0.2) X10*3/uL Abs Immat Gran (auto) (0.00-0.03) X10*3/uL Absolute Neuts (auto) (2.0-8.3) x10*3/uL Absolute Nucleated RBC (0.0-0.012) X10*3/uL Nucleated RBC % (auto) (0.0-0.2) /100WBC D-Dimer High Sensitivty NG/ML Sodium (135-145) mmol/L Potassium (3.3-5.1) mmol/L Chloride (96-108) mmol/L Carbon Dioxide (22-29) mmol/L Anion Gap (12-20) BUN (9-16) mg/dL Creatinine (0.5-1.4) mg/dL Estim Creat Clear Calc Estimated GFR POC Glucose (60-115) mg/dL Random Glucose (60-115) mg/dL Lactic Acid 3.1 H* (0.5-2.0) mmol/L Lactic Acid F/U @ 2Hr (0.5-2.0) mmol/L Calcium (8.4-10.2) mg/dL Troponin I High Sens (<3.5-35.0) ng/L B-Natriuretic Peptide (<100) pg/mL Urine Color Urine Appearance Urine pH (5.0-8.0) Ur Specific [place] (1.005-1.025) Urine Protein (NEG-TRACE) MG/DL Urine Glucose (UA) (NEG) MG/DL Urine Ketones (NEG) MG/DL Urine Blood (NEG) Urine Nitrite (NEG) Ur Leukocyte Esterase (NEG) Acetone, Qual (Negative) COVID-19 (LALA) Negative (Negative) COVID-19 Clin Com See Note Influenza Type A (LUIS) Negative (Negative) Influenza Type B (LUIS) Negative (Negative) Influenza A & B Note See Note 03/20/22 03/20/22 03/20/22 Range/Units 13:51 14:06 14:25 WBC (4.8-10.8) X10*3/uL RBC (4.60-5.80) X10*6/uL Hgb (14.0-18.0) g/dl Hct (42.0-52.0) % MCV (80.0-98.0) fL MCH (27.0-33.0) pg MCHC (31.0-36.0) g/dl RDW (11.0-16.0) % Plt Count (160-400) X10*3/uL MPV (9.4-12.4) fL Immature Gran % (Auto) (0.0-0.4) % Neut % (Auto) (45-73) % Lymph % (Auto) (20-40) % [place] % (Auto) (2-11) % Eos % (Auto) (0-4) % Baso % (Auto) (0-2) % Lymph # (Auto) (1.2-4.9) X10*3/uL [place] # (Auto) (0.1-1.2) X10*3/uL Eos # (Auto) (0.0-0.4) X10*3/uL Baso # (Auto) (0.0-0.2) X10*3/uL Abs Immat Gran (auto) (0.00-0.03) X10*3/uL Absolute Neuts (auto) (2.0-8.3) x10*3/uL Absolute Nucleated RBC (0.0-0.012) X10*3/uL Nucleated RBC % (auto) (0.0-0.2) /100WBC D-Dimer High Sensitivty 150 NG/ML Sodium (135-145) mmol/L Potassium (3.3-5.1) mmol/L Chloride (96-108) mmol/L Carbon Dioxide (22-29) mmol/L Anion Gap (12-20) BUN (9-16) mg/dL Creatinine (0.5-1.4) mg/dL Estim Creat Clear Calc Estimated GFR POC Glucose 442 H* (60-115) mg/dL Random Glucose (60-115) mg/dL Lactic Acid (0.5-2.0) mmol/L Lactic Acid F/U @ 2Hr (0.5-2.0) mmol/L Calcium (8.4-10.2) mg/dL Troponin I High Sens (<3.5-35.0) ng/L B-Natriuretic Peptide (<100) pg/mL Urine Color Urine Appearance Urine pH (5.0-8.0) Ur Specific [place] (1.005-1.025) Urine Protein (NEG-TRACE) MG/DL Urine Glucose (UA) (NEG) MG/DL Urine Ketones (NEG) MG/DL Urine Blood (NEG) Urine Nitrite (NEG) Ur Leukocyte Esterase (NEG) Acetone, Qual Negative (Negative) COVID-19 (LALA) (Negative) COVID-19 Clin Com Influenza Type A (LUIS) (Negative) Influenza Type B (LUIS) (Negative) Influenza A & B Note 03/20/22 03/20/22 03/20/22 Range/Units 16:23 16:23 19:23 WBC (4.8-10.8) X10*3/uL RBC (4.60-5.80) X10*6/uL Hgb (14.0-18.0) g/dl Hct (42.0-52.0) % MCV (80.0-98.0) fL MCH (27.0-33.0) pg MCHC (31.0-36.0) g/dl RDW (11.0-16.0) % Plt Count (160-400) X10*3/uL MPV (9.4-12.4) fL Immature Gran % (Auto) (0.0-0.4) % Neut % (Auto) (45-73) % Lymph % (Auto) (20-40) % [place] % (Auto) (2-11) % Eos % (Auto) (0-4) % Baso % (Auto) (0-2) % Lymph # (Auto) (1.2-4.9) X10*3/uL [place] # (Auto) (0.1-1.2) X10*3/uL Eos # (Auto) (0.0-0.4) X10*3/uL Baso # (Auto) (0.0-0.2) X10*3/uL Abs Immat Gran (auto) (0.00-0.03) X10*3/uL Absolute Neuts (auto) (2.0-8.3) x10*3/uL Absolute Nucleated RBC (0.0-0.012) X10*3/uL Nucleated RBC % (auto) (0.0-0.2) /100WBC D-Dimer High Sensitivty NG/ML Sodium (135-145) mmol/L Potassium (3.3-5.1) mmol/L Chloride (96-108) mmol/L Carbon Dioxide (22-29) mmol/L Anion Gap (12-20) BUN (9-16) mg/dL Creatinine (0.5-1.4) mg/dL Estim Creat Clear Calc Estimated GFR POC Glucose (60-115) mg/dL Random Glucose (60-115) mg/dL Lactic Acid 2.5 H* (0.5-2.0) mmol/L Lactic Acid F/U @ 2Hr 2.3 H* (0.5-2.0) mmol/L Calcium (8.4-10.2) mg/dL Troponin I High Sens 9.6 (<3.5-35.0) ng/L B-Natriuretic Peptide (<100) pg/mL Urine Color Urine Appearance Urine pH (5.0-8.0) Ur Specific [place] (1.005-1.025) Urine Protein (NEG-TRACE) MG/DL Urine Glucose (UA) (NEG) MG/DL Urine Ketones (NEG) MG/DL Urine Blood (NEG) Urine Nitrite (NEG) Ur Leukocyte Esterase (NEG) Acetone, Qual (Negative) COVID-19 (LALA) (Negative) COVID-19 Clin Com Influenza Type A (LUIS) (Negative) Influenza Type B (LUIS) (Negative) Influenza A & B Note 03/20/22 03/20/22 Range/Units 19:23 19:37 WBC (4.8-10.8) X10*3/uL RBC (4.60-5.80) X10*6/uL Hgb (14.0-18.0) g/dl Hct (42.0-52.0) % MCV (80.0-98.0) fL MCH (27.0-33.0) pg MCHC (31.0-36.0) g/dl RDW (11.0-16.0) % Plt Count (160-400) X10*3/uL MPV (9.4-12.4) fL Immature Gran % (Auto) (0.0-0.4) % Neut % (Auto) (45-73) % Lymph % (Auto) (20-40) % [place] % (Auto) (2-11) % Eos % (Auto) (0-4) % Baso % (Auto) (0-2) % Lymph # (Auto) (1.2-4.9) X10*3/uL [place] # (Auto) (0.1-1.2) X10*3/uL Eos # (Auto) (0.0-0.4) X10*3/uL Baso # (Auto) (0.0-0.2) X10*3/uL Abs Immat Gran (auto) (0.00-0.03) X10*3/uL Absolute Neuts (auto) (2.0-8.3) x10*3/uL Absolute Nucleated RBC (0.0-0.012) X10*3/uL Nucleated RBC % (auto) (0.0-0.2) /100WBC D-Dimer High Sensitivty NG/ML Sodium (135-145) mmol/L Potassium (3.3-5.1) mmol/L Chloride (96-108) mmol/L Carbon Dioxide (22-29) mmol/L Anion Gap (12-20) BUN (9-16) mg/dL Creatinine (0.5-1.4) mg/dL Estim Creat Clear Calc Estimated GFR POC Glucose 249 H (60-115) mg/dL Random Glucose (60-115) mg/dL Lactic Acid (0.5-2.0) mmol/L Lactic Acid F/U @ 2Hr (0.5-2.0) mmol/L Calcium (8.4-10.2) mg/dL Troponin I High Sens (<3.5-35.0) ng/L B-Natriuretic Peptide (<100) pg/mL Urine Color YELLOW Urine Appearance CLEAR Urine pH 5.5 (5.0-8.0) Ur Specific [place] >= 1.030 H (1.005-1.025) Urine Protein NEG (NEG-TRACE) MG/DL Urine Glucose (UA) 500 H (NEG) MG/DL Urine Ketones NEG (NEG) MG/DL Urine Blood NEG (NEG) Urine Nitrite NEG (NEG) Ur Leukocyte Esterase NEG (NEG) Acetone, Qual (Negative) COVID-19 (LLAA) (Negative) COVID-19 Clin Com Influenza Type A (LUIS) (Negative) Influenza Type B (LUIS) (Negative) Influenza A & B Note ECG Data Interpretation: EKG shows sinus at a rate of 88, IA 154, QRS 136, QTC 41, left axis deviation, right bundle branch block. No STEMI. Discharge Plan Discharge Clinical Impression: Pneumonia, Sepsis Patient Disposition: Admitted As Inpatient
[2022-03-20 13:22] LABS: Anion Gap 15 (12-20); Blood Urea Nitrogen 28 mg/dL (9-16); Calcium 8.1 mg/dL (8.4-10.2); Carbon Dioxide 25 mmol/L (22-29); Chloride 98 mmol/L (96-108); Creatinine Clr Calc Pharmacy 52.8; Estimated Glomerular Filt Rate 46; Glucose Random 478 mg/dL (60-115); Sodium 133 mmol/L (135-145)
[2022-03-20] MEDS: Albuterol/Iprat 2.5/0.5MG 3 ML AMPUL.NEB INHALE (13:36)
[2022-03-20] MEDS: Piperacillin Sodium/Tazobactam 4.5 GM in 0.9 % Sodium Chloride 100 ML IV (13:50)
[2022-03-20 13:57] LABS: COVID-19 Test Negative (Negative); IDNOW Serial# 16C4AD1C; Influenza A Negative (Negative); Influenza B2 Negative (Negative)
[2022-03-20] MEDS: Insulin Regular, Human 100 UNIT/ML 3 ML VIAL 10 UNIT IVPUSH (13:59)
[2022-03-20 14:08] LABS: Lactic Acid 3.1 mmol/L (0.5-2.0)
[2022-03-20] MEDS: levoFLOXacin/D5W 750 MG/150 ML PIGGYBACK 100 MG IV (14:09)
[2022-03-20 14:15] LABS: Venous Blood Gas Refer to POC result
[2022-03-20 14:16] LABS: B Type Natriuretic Peptide 41 pg/mL (<100); Troponin-I High Sensitivity 12.3 ng/L (<3.5-35.0)
[2022-03-20 14:18] LABS: D Dimer High Sensitivity 150 NG/ML
[2022-03-20 14:20] LABS: Acetone, serum QL Negative (Negative)
[2022-03-20 14:29] LABS: Glucose, Whole Blood 442 mg/dL (60-115)
[2022-03-20] MEDS: vancomycin HCL 1,500 MG in 0.9 % Sodium Chloride 500 ML 333.33 MG IV (15:28)
[2022-03-20 15:38] LABS: Reflex Lactate? Lactic Acid Added
[2022-03-20 16:46] LABS: Lactic Acid 2.5 mmol/L (0.5-2.0)
[2022-03-20 16:48] LABS: Troponin-I High Sensitivity 9.6 ng/L (<3.5-35.0)
[2022-03-20 18:25] LABS: Reflex Lactate? Lactic Acid Added
[2022-03-20 19:32] LABS: Appearance Urine CLEAR; Color Urine YELLOW; Glucose Urine UA 500 MG/DL (NEG); Leukocyte Esterase Urine NEG (NEG); Nitrite Urine NEG (NEG); PH 5.5 (5.0-8.0); Specific Gravity - Urine >= 1.030 (1.005-1.025); Urine Blood NEG (NEG); Urine Ketones NEG (NEG); Urine Protein NEG (NEG-TRACE)
--- NOTE | 2022-03-20 19:37 | PC.NURSE ---
pt repeat blood sugar 249, RN anaya downs
--- NOTE | 2022-03-20 19:40 | PHA.MEDREC ---
Pharmacy Consult ? Medication Reconciliation Pharmacy has completed the medication reconciliation. Pt unsure of whether or not he took his medications this morning, says he passed out and woke up here. Ilene Bruner, EveretteD
[2022-03-20 19:43] LABS: ~Lactic Acid-LAB USE ONLY 2.3 mmol/L (0.5-2.0)
[2022-03-20 19:44] LABS: Glucose, Whole Blood 249 mg/dL (60-115)
[2022-03-20 21:27] LABS: Reflex Lactate? 2 Y
[2022-03-20 22:40] LABS: ~Lactic Acid-LAB USE ONLY 1.8 mmol/L (0.5-2.0)
--- NOTE | 2022-03-20 23:03 | P.HPHOSP_ITS ---
History of Present Illness Date of Service: 03/20/22 Chief Complaint: SOB This is a 76-year-old male with past medical history of CAD, COPD, CAD status post 2 stents in February 2022, HTN, HLD, obesity, MAYA, history of prostate cancer, status post prostatectomy, RBBB who presents to the hospital with complaints of worsening shortness of breath cough and generally not feeling well. Patient was discharged from the hospital on 02/23 after being managed for COPD exacerbation as well as pneumonia. Patient reports that on discharge was feeling better but had a recent hospitalization for CAD as well as stent placement at [facility], he reports that within few days post discharge she started developing worsening shortness of breath cough and sputum production. Patient reports that he had a fever of 100.9 at home, has been having chills, denies any chest pain, no abdominal pain nausea vomiting, no diarrhea constipation, no urinary symptoms and no lower extremity edema. He has no orthopnea or PND. Of note patient was started on home O2 after being discharged from the hospital in February On arrival to the ED patient vitals are significant for respiratory rate of 22 and satting 91% on 3 L of baseline oxygen, Labs on arrival are significant for WBC count of 17.0, creatinine of 1.49 with a baseline of around 1, glucose of 478, lactic acid of 3.1 that resolved after fluids, COVID and influenza negative Chest x-ray shows patchy opacities at the left lung base most consistent with infiltrates Patient started on IV antibiotics and will be admitted for further management Review of Systems Review of Systems: Yes all other systems are reviewed and are negative [facility] Medical History CAD (coronary artery disease) Chronic stable angina HTN (hypertension) Hyperlipidemia Nephrolithiasis Obesity MAYA (obstructive sleep apnea) Pneumonia Prostate cancer Right bundle branch block (RBBB) on electrocardiogram (ECG) Family History Father CVD (cardiovascular disease) Mother CVD (cardiovascular disease) Brother CVD (cardiovascular disease) Surgical History History of basal cell carcinoma (BCC) excision History of carpal tunnel release History of eye surgery Hx laparoscopic cholecystectomy Hx of cardiac cath Hx of hernia repair Hx of spinal surgery Social History Household Members: Spouse Housing: House Do you presently have visiting nurse or other home services: No Alcohol intake: former Patient Tobacco Use Status: Never used Tobacco Tobacco use type: Cigarette Use of substances other than those prescribed or required for medical reasons: No Have you been hit, kicked, punched, or otherwise hurt by someone within the past year? If so, by whom?: No Do you feel safe in your current relationship?: Yes Is there a partner from a previous relationship who is making you feel unsafe now?: No Are you made to feel afraid or neglected: No Advance Directives: Yes Advance Directives on File: Yes Advance Directives Date on File: 07/17/21 Do you have thoughts of harming others: None Do you have a plan to hurt others: No Plan Recently lost weight without trying: No How much weight loss: Not applicable Eating poorly because of decreased appetite: No Nutrition screen score: 0 service: No Current occupational status: retired [id number] Allergies Allergy/AdvReac Type Severity Reaction Status Date / Time Aspirin Allergy Unknown rectal Uncoded 03/20/22 23:19 bleeding Active Medications: Current Medications Acetaminophen (Acetaminophen 325 Mg Tablet) 650 mg PO Q6H PRN PRN Reason: Pain, Mild (Pain Scale 1-3) Docusate Sodium (Docusate Sodium 100 Mg Capsule) 100 mg PO DAILY PRN PRN Reason: Constipation Heparin Sodium (Porcine) (Heparin Sodium,Porcine 5,000 Unit/Ml Vial) 5,000 unit SUBCUT Q12H SALMA Vancomycin HCl 1,500 mg/ (Sodium Chloride) 500 mls @ 333.333 mls/hr IV Q12H SALMA Piperacillin Sod/Tazobactam (Sod 3.375 gm/ Sodium Chloride) 50 mls @ 100 mls/hr IV Q6H SALMA Lactated Ringer's (Lr) 1,000 mls @ 80 mls/hr IVCONT .[id number] SALMA Ondansetron HCl (Ondansetron Hcl 4 Mg/2 Ml Vial) 4 mg IVPUSH Q8H PRN PRN Reason: Nausea and Vomiting Pharmacy Consult (Consult Rx Perform Med Rec) 1 each MISCELLANE ONCE PRN PRN Reason: Consult order Pharmacy Consult (Consult Rx Vancomycin Dosing) 1 each MISCELLANE DAILY PRN PRN Reason: Consult order Sodium Chloride (0.9 % Sodium Chloride Flush 3 Ml Syringe) 3 ml IVFLUSH QSHIFT [facility] Home Medications Medication Instructions Recorded Confirmed Last Taken Type allopurinol 100 mg tablet 100 mg PO DAILY 09/16/20 03/20/22 02/20/22 History lisinopril 10 mg tablet 10 mg PO DAILY 09/16/20 03/20/22 02/20/22 History atorvastatin 40 mg tablet 40 mg PO DAILY@1700 07/16/21 03/20/22 03/19/22 History nitroglycerin 0.4 mg sublingual 0.4 mg SUBLINGUAL Q5M PRN 07/16/21 03/20/22 02/20/22 History tablet omeprazole 20 mg capsule,delayed 20 mg PO BID@0630,1630 PRN 07/16/21 03/20/22 02/20/22 History release amlodipine 5 mg tablet 5 mg PO DAILY 02/20/22 03/20/22 02/20/22 History aspirin 81 mg tablet,delayed 81 mg PO DAILY 03/20/22 03/20/22 Unknown History release cyanocobalamin (vitamin B-12) 1,000 mcg PO DAILY 03/20/22 03/20/22 Unknown History 1,000 mcg tablet lorazepam 0.5 mg tablet 1 tab PO BEDTIME 03/20/22 03/20/22 03/19/22 History Physical Exam Vital Signs and Narrative: Vital Signs: Last Vital Signs Temp 97.6 F 03/20/22 22:16 Pulse 97 03/20/22 22:16 Resp 16 03/20/22 22:16 BP 109/53 L 03/20/22 22:16 Pulse Ox 95 03/20/22 22:16 Oxygen Flow Rate 3 03/20/22 12:17 BMI result Body Mass Index 36.6 Const: General: cooperative and no acute distress Orientation/conscio usness: patient oriented x3 Eyes: General: appearance normal, both eyes and all related structures Pupils: Equal, round and reactive pupils present Resp: Other: Bladder crackles, no wheezing Effort & Inspection: normal respiratory effort Cardio: Rate: regular rate Rhythm: regular rhythm GI: Palpation (GI): Soft to palpation Auscultation: normal bowel sounds Skin: General skin exam: no rashes or lesions noted Neuro: General: patient oriented x3 Cranial nerves: Yes Equal, round and reactive pupils present Cognition (Neuro): normal cognition Extrem: General: Yes normal to inspection and Yes no pedal edema Results Labs CBC and Chem 7: 03/20/22 12:34 03/21/22 06:09 Labs: Laboratory Results - last 24 hr 03/20/22 03/20/22 03/20/22 12:34 12:35 13:31 MCV 84.3 MCH 25.8 L MCHC 30.7 L RDW 15.7 Plt Count 241 MPV 10.1 Immature Gran % (Auto) 0.8 H Neut % (Auto) 89.4 H Lymph % (Auto) 5.8 L Henderson % (Auto) 3.8 Eos % (Auto) 0.1 Baso % (Auto) 0.1 Lymph # (Auto) 1.0 L Henderson # (Auto) 0.6 Eos # (Auto) 0.0 Baso # (Auto) 0.0 Abs Immat Gran (auto) 0.13 H Absolute Neuts (auto) 15.2 H Absolute Nucleated RBC 0.000 Nucleated RBC % (auto) 0.0 D-Dimer High Sensitivty Anion Gap 15 Estim Creat Clear Calc 52.8 Estimated GFR 46 POC Glucose Random Glucose 478 H* Lactic Acid Lactic Acid F/U @ 2Hr Lactic Acid F/U @ 4Hr Calcium 8.1 L Troponin I High Sens 12.3 D B-Natriuretic Peptide 41 Urine Color Urine Appearance Urine pH Ur Specific [place] Urine Protein Urine Glucose (UA) Urine Ketones Urine Blood Urine Nitrite Ur Leukocyte Esterase Acetone, Qual COVID-19 (LALA) COVID-19 Clin Com Influenza Type A (LUIS) Influenza Type B (LUIS) Influenza A & B Note 03/20/22 03/20/22 03/20/22 13:31 13:31 13:34 MCV MCH MCHC RDW Plt Count MPV Immature Gran % (Auto) Neut % (Auto) Lymph % (Auto) Henderson % (Auto) Eos % (Auto) Baso % (Auto) Lymph # (Auto) Henderson # (Auto) Eos # (Auto) Baso # (Auto) Abs Immat Gran (auto) Absolute Neuts (auto) Absolute Nucleated RBC Nucleated RBC % (auto) D-Dimer High Sensitivty Anion Gap Estim Creat Clear Calc Estimated GFR POC Glucose Random Glucose Lactic Acid 3.1 H* Lactic Acid F/U @ 2Hr Lactic Acid F/U @ 4Hr Calcium Troponin I High Sens B-Natriuretic Peptide Urine Color Urine Appearance Urine pH Ur Specific [place] Urine Protein Urine Glucose (UA) Urine Ketones Urine Blood Urine Nitrite Ur Leukocyte Esterase Acetone, Qual COVID-19 (LALA) Negative COVID-19 Clin Com See Note Influenza Type A (LUIS) Negative Influenza Type B (LUIS) Negative Influenza A & B Note See Note 03/20/22 03/20/22 03/20/22 13:51 14:06 14:25 MCV MCH MCHC RDW Plt Count MPV Immature Gran % (Auto) Neut % (Auto) Lymph % (Auto) [place] % (Auto) Eos % (Auto) Baso % (Auto) Lymph # (Auto) Henderson # (Auto) Eos # (Auto) Baso # (Auto) Abs Immat Gran (auto) Absolute Neuts (auto) Absolute Nucleated RBC Nucleated RBC % (auto) D-Dimer High Sensitivty 150 Anion Gap Estim Creat Clear Calc Estimated GFR POC Glucose 442 H* Random Glucose Lactic Acid Lactic Acid F/U @ 2Hr Lactic Acid F/U @ 4Hr Calcium Troponin I High Sens B-Natriuretic Peptide Urine Color Urine Appearance Urine pH Ur Specific [place] Urine Protein Urine Glucose (UA) Urine Ketones Urine Blood Urine Nitrite Ur Leukocyte Esterase Acetone, Qual Negative COVID-19 (LALA) COVID-19 Clin Com Influenza Type A (LUIS) Influenza Type B (LUIS) Influenza A & B Note 03/20/22 03/20/22 03/20/22 16:23 16:23 19:23 MCV MCH MCHC RDW Plt Count MPV Immature Gran % (Auto) Neut % (Auto) Lymph % (Auto) [place] % (Auto) Eos % (Auto) Baso % (Auto) Lymph # (Auto) Henderson # (Auto) Eos # (Auto) Baso # (Auto) Abs Immat Gran (auto) Absolute Neuts (auto) Absolute Nucleated RBC Nucleated RBC % (auto) D-Dimer High Sensitivty Anion Gap Estim Creat Clear Calc Estimated GFR POC Glucose Random Glucose Lactic Acid 2.5 H* Lactic Acid F/U @ 2Hr 2.3 H* Lactic Acid F/U @ 4Hr Calcium Troponin I High Sens 9.6 B-Natriuretic Peptide Urine Color Urine Appearance Urine pH Ur Specific [place] Urine Protein Urine Glucose (UA) Urine Ketones Urine Blood Urine Nitrite Ur Leukocyte Esterase Acetone, Qual COVID-19 (LALA) COVID-19 Clin Com Influenza Type A (LUIS) Influenza Type B (LUIS) Influenza A & B Note 03/20/22 03/20/22 03/20/22 19:23 19:37 22:23 MCV MCH MCHC RDW Plt Count MPV Immature Gran % (Auto) Neut % (Auto) Lymph % (Auto) [place] % (Auto) Eos % (Auto) Baso % (Auto) Lymph # (Auto) [place] # (Auto) Eos # (Auto) Baso # (Auto) Abs Immat Gran (auto) Absolute Neuts (auto) Absolute Nucleated RBC Nucleated RBC % (auto) D-Dimer High Sensitivty Anion Gap Estim Creat Clear Calc Estimated GFR POC Glucose 249 H Random Glucose Lactic Acid Lactic Acid F/U @ 2Hr Lactic Acid F/U @ 4Hr 1.8 Calcium Troponin I High Sens B-Natriuretic Peptide Urine Color YELLOW Urine Appearance CLEAR Urine pH 5.5 Ur Specific [place] >= 1.030 H Urine Protein NEG Urine Glucose (UA) 500 H Urine Ketones NEG Urine Blood NEG Urine Nitrite NEG Ur Leukocyte Esterase NEG Acetone, Qual COVID-19 (LALA) COVID-19 Clin Com Influenza Type A (LUIS) Influenza Type B (LUIS) Influenza A & B Note Imaging Radiologist's Impressions: Impressions Chest X-Ray 03/20/22 12:44 IMPRESSION: Patchy opacities at the left lung base most consistent with infiltrates. Assessment and Plan (1) Hospital-acquired pneumonia: Status: Acute (2) Sepsis: Status: Acute (3) Lactic acidosis: Status: Acute (4) SUBHA (acute kidney injury): Status: Acute Plan 76-year-old male with past medical history as mentioned presents to the hospital with complaints of shortness of breath, cough, found to have pneumonia on chest x-ray # pneumonia - will be considered health care associated pneumonia given recent hospitalization - has leukocytosis, tachypnea as well as lactic acidosis - will treat with IV antibiotics - DuoNeb p.r.n. - patient has no wheezing therefore will hold off Solu-Medrol, patient had prolonged treatment with prednisone for recent hospitalization as well as COPD exacerbation - follow cultures # sepsis - secondary to above - treated with IV antibiotic - IV fluids - follow cultures # lactic acidosis - secondary to acute infection - IV fluids # SUBHA - secondary to above - IV fluids - follow BMP # undiagnosed diabetes - patient presents 2 with hyperglycemia with a glucose of 400s - patient reports no history of diabetes or and told he had diabetes - will place on low-dose sliding scale insulin - obtain hemoglobin A1c - patient will likely need anti hyperglycemic medication on discharge # hypertension - stable - resume antihypertensives # CAD - no chest pain - resume Plavix, aspirin, statin, metoprolol DVT prophylaxis: Heparin subQ Given hospital-acquired pneumonia and requirement for IV antibiotics patient will require a minimum 2 night hospital stays for management and treatment Quality Stroke Does the patient have a stroke diagnosis?: No VTE Prior VTE?: No VTE Risk Level:: Medical - moderate - high VTE Device Contraindication: Treatment Not Indicated VTE Drug Contraindication: N/A - Med Ordered
[2022-03-20] MEDS: Lactated Ringers 1,000 ML 80 ML IVCONT (23:30)
[2022-03-20] MEDS: Heparin Sodium,Porcine 5,000 UNIT/ML VIAL 5000 UNIT SUBCUT (23:30)
[2022-03-20] MEDS: LORazepam 0.5 MG TABLET PO (23:37)
[2022-03-20] MEDS: Gabapentin 300 MG CAPSULE PO (23:37)
[2022-03-21] VITALS (10 sets, daily range): BP systolic 94–141; BP diastolic 50–70; PULSE 72–113; RESP 16–20; TEMP 36.4–38.4; O2SAT 89–96; BMI 36.5
[2022-03-21] MEDS: Piperacillin Sodium/Tazobactam 3.375 GM in 0.9 % Sodium Chloride 50 ML IV ×5 (00:08→23:24)
[2022-03-21] MEDS: Lactated Ringers 1,000 ML 80 ML IVCONT ×2 (05:29→12:34)
[2022-03-21 06:05] LABS: Estimated Average Glucose 203 mg/dL; Hemoglobin A1c % 8.7 %
[2022-03-21 06:33] LABS: Basophils Percent Auto 0.2 % (0-2); Eosinophils Absolute Auto 0.1 X10*3/uL (0.0-0.4); Eosinophils Percent Auto 0.9 % (0-4); Hematocrit 41.3 % (42.0-52.0); Hemoglobin 12.4 g/dl (14.0-18.0); Imm Gran Abs Auto 0.08 X10*3/uL (0.00-0.03); Imm Gran Pct Auto 0.6 % (0.0-0.4); Lymphocytes Absolute Auto 1.4 X10*3/uL (1.2-4.9); Lymphocytes Percent Auto 10.3 % (20-40); MANUAL DIFF FLAG SCAN; Mean Corpuscular Hemoglobin 25.8 pg (27.0-33.0); Mean Platelet Volume 10.1 fL (9.4-12.4); Monocytes Absolute Auto 0.8 X10*3/uL (0.1-1.2); Monocytes Percent Auto 6.1 % (2-11); Neutrophils Percent Auto 81.9 % (45-73); PLT CLUMP 1; Red Cell Distribution Width 15.9 % (11.0-16.0); SCAN SMEAR FLAG 1
[2022-03-21 06:35] LABS: Platelet Count 178 X10*3/uL (160-400); White Blood Count 13.5 X10*3/uL (4.8-10.8)
[2022-03-21 06:38] LABS: Anion Gap 14 (12-20); Blood Urea Nitrogen 24 mg/dL (9-16); Calcium 8.2 mg/dL (8.4-10.2); Carbon Dioxide 28 mmol/L (22-29); Chloride 103 mmol/L (96-108); Creatinine Clr Calc Pharmacy 88.4; Estimated Glomerular Filt Rate > 60; Glucose Random 128 mg/dL (60-115); Potassium 4.6 mmol/L (3.3-5.1); Sodium 140 mmol/L (135-145)
[2022-03-21 06:58] LABS: SLIDE REVIEW VERIFIED
[2022-03-21 08:20] LABS: Glucose, Whole Blood 130 mg/dL (60-115)
--- NOTE | 2022-03-21 09:15 | HO.PM.IMPN ---
Subjective Subjective Date of Service: 03/21/22 Interval History: Sepsis/pneumonia Review of Systems Patient says that shortness of breath seems similar last lab last night. Has significant cough Denies any chest pain or abdominal pain or urinary complaints. Denies any nausea or vomiting Physical Exam Vital Signs: Vital Signs: Last Vital Signs Temp 98.4 F 03/21/22 08:00 Pulse 99 03/21/22 08:00 Resp 20 03/21/22 08:00 BP 131/69 03/21/22 08:00 Pulse Ox 92 03/21/22 08:00 Oxygen Flow Rate 3 03/20/22 12:17 BMI result Body Mass Index 36.5 Appearance: Alert.? Oriented X3.? not in distress.? cvs: [id number], [id number] . res: Air entry seem diminished at bases, no wheezing abd: no rebound or guarding ,nt, bs present. ext pulses present , no cyanosis . neuro: axo3 , nonfocal. Objective Data Active Medications Acetaminophen (Acetaminophen 325 Mg Tablet) 650 mg PO Q6H PRN PRN Reason: Pain, Mild (Pain Scale 1-3) Albuterol/Ipratropium (Albuterol/Iprat 2.5/0.5mg 3 Ml Ampul.Neb) 3 ml INHALE RQ4H PRN PRN Reason: Shortness of Breath/Wheezing Albuterol/Ipratropium (Albuterol/Iprat 2.5/0.5mg 3 Ml Ampul.Neb) 3 ml INHALE RQ4H WHILE AWAKE [facility] Last Admin: 03/21/22 07:52 Dose: Not Given Documented by: SAMY Non-Admin Reason: pt refused Allopurinol (Allopurinol 100 Mg Tablet) 100 mg PO DAILY [facility] Amlodipine Besylate (Amlodipine Besylate 5 Mg Tablet) 5 mg PO DAILY [facility]; Protocol Aspirin (Aspirin Enteric Coated 81 Mg Tablet.) 81 mg PO DAILY [facility] Atorvastatin Calcium (Atorvastatin Calcium 40 Mg Tablet) 40 mg PO DAILY@1700 [facility] Clopidogrel Bisulfate (Clopidogrel Bisulfate 75 Mg Tablet) 75 mg PO DAILY [facility] Cyanocobalamin (Cyanocobalamin (Vitamin B-12) 1,000 Mcg Tablet) 1,000 mcg PO DAILY [facility] Dextrose (Dextrose 50 % 25 Gm/50 Ml Syringe) 25 gm IVPUSH Q15M PRN; Protocol PRN Reason: per Hypoglycemia Standing Ord. Docusate Sodium (Docusate Sodium 100 Mg Capsule) 100 mg PO DAILY PRN PRN Reason: Constipation Fluticasone/Vilanterol (Fluticasone/Vilanterol 100/25 Blst.W.Dev) 1 puff INHALE RDAILY [facility] Gabapentin (Gabapentin 300 Mg Capsule) 300 mg PO BEDTIME [facility] Last Admin: 03/20/22 23:37 Dose: 300 mg Documented by: CHU Glucose (Glucose Gel 15 Gm Gel..Gram.) 15 gm PO Q15M PRN; Protocol PRN Reason: per Hypoglycemia Standing Ord. Heparin Sodium (Porcine) (Heparin Sodium,Porcine 5,000 Unit/Ml Vial) 5,000 unit SUBCUT Q12H [facility] Last Admin: 03/20/22 23:30 Dose: 5,000 unit Documented by: CHU Piperacillin Sod/Tazobactam (Sod 3.375 gm/ Sodium Chloride) 50 mls @ 100 mls/hr IV Q6H [facility] Last Infusion: 03/21/22 06:20 Dose: 0 mls/hr Documented by: BRIAN Lactated Ringer's (Lr) 1,000 mls @ 80 mls/hr IVCONT .[id number] [facility] Last Admin: 03/21/22 05:29 Dose: 80 mls/hr Documented by: BRIAN Vancomycin HCl 1,000 mg/ (Sodium Chloride) 270 mls @ 166.667 mls/hr IV Q12H [facility] Insulin Human Lispro (Insulin Lispro 100 Unit/Ml 3 Ml Vial) 0 unit SUBCUT QIDACHS [facility]; Protocol Last Admin: 03/21/22 08:26 Dose: Not Given Documented by: WINNIE Non-Admin Reason: No Insulin Coverage Lisinopril (Lisinopril 10 Mg Tablet) 10 mg PO DAILY [facility]; Protocol Lorazepam (Lorazepam 0.5 Mg Tablet) 0.5 mg PO BEDTIME [facility] Last Admin: 03/20/22 23:37 Dose: 0.5 mg Documented by: CHU Metoprolol Succinate (Metoprolol Succinate Er 50 Mg Tab.Er.24h) 50 mg PO DAILY [facility]; Protocol Nitroglycerin (Nitroglycerin 0.4 Mg Tab.Subl) 0.4 mg SUBLINGUAL Q5M PRN PRN Reason: Chest Pain Omeprazole (Omeprazole 20 Mg Capsule.Dr) 20 mg PO BID@0630,1630 PRN PRN Reason: Acid Reflux Ondansetron HCl (Ondansetron Hcl 4 Mg/2 Ml Vial) 4 mg IVPUSH Q8H PRN PRN Reason: Nausea and Vomiting Pharmacy Consult (Consult Rx Perform Med Rec) 1 each MISCELLANE ONCE PRN PRN Reason: Consult order Pharmacy Consult (Consult Rx Vancomycin Dosing) 1 each MISCELLANE DAILY PRN PRN Reason: Consult order Sodium Chloride (0.9 % Sodium Chloride Flush 3 Ml Syringe) 3 ml IVFLUSH QSHIFT [facility] Last Admin: 03/21/22 00:11 Dose: Not Given Documented by: CHU Non-Admin Reason: Pt getting Liter of LR Labs CBC & Chem 7: 03/21/22 06:09 03/21/22 06:09 Labs: Laboratory Results - last 24 hr 03/20/22 03/20/22 03/20/22 12:34 12:35 13:31 MCV 84.3 MCH 25.8 L MCHC 30.7 L RDW 15.7 Plt Count 241 MPV 10.1 Immature Gran % (Auto) 0.8 H Neut % (Auto) 89.4 H Lymph % (Auto) 5.8 L Graves % (Auto) 3.8 Eos % (Auto) 0.1 Baso % (Auto) 0.1 Lymph # (Auto) 1.0 L Graves # (Auto) 0.6 Eos # (Auto) 0.0 Baso # (Auto) 0.0 Abs Immat Gran (auto) 0.13 H Absolute Neuts (auto) 15.2 H Absolute Nucleated RBC 0.000 Nucleated RBC % (auto) 0.0 Smear Tech's Comments D-Dimer High Sensitivty Anion Gap 15 Estim Creat Clear Calc 52.8 Estimated GFR 46 POC Glucose Random Glucose 478 H* Estimat Average Glucose Hemoglobin A1c % Lactic Acid Lactic Acid F/U @ 2Hr Lactic Acid F/U @ 4Hr Calcium 8.1 L Troponin I High Sens 12.3 D B-Natriuretic Peptide 41 Urine Color Urine Appearance Urine pH Ur Specific Robson Urine Protein Urine Glucose (UA) Urine Ketones Urine Blood Urine Nitrite Ur Leukocyte Esterase Acetone, Qual COVID-19 (LALA) COVID-19 Clin Com Influenza Type A (LUIS) Influenza Type B (LUIS) Influenza A & B Note 03/20/22 03/20/22 03/20/22 13:31 13:31 13:34 MCV MCH MCHC RDW Plt Count MPV Immature Gran % (Auto) Neut % (Auto) Lymph % (Auto) Graves % (Auto) Eos % (Auto) Baso % (Auto) Lymph # (Auto) Graves # (Auto) Eos # (Auto) Baso # (Auto) Abs Immat Gran (auto) Absolute Neuts (auto) Absolute Nucleated RBC Nucleated RBC % (auto) Smear Tech's Comments D-Dimer High Sensitivty Anion Gap Estim Creat Clear Calc Estimated GFR POC Glucose Random Glucose Estimat Average Glucose Hemoglobin A1c % Lactic Acid 3.1 H* Lactic Acid F/U @ 2Hr Lactic Acid F/U @ 4Hr Calcium Troponin I High Sens B-Natriuretic Peptide Urine Color Urine Appearance Urine pH Ur Specific Robson Urine Protein Urine Glucose (UA) Urine Ketones Urine Blood Urine Nitrite Ur Leukocyte Esterase Acetone, Qual COVID-19 (LALA) Negative COVID-19 Clin Com See Note Influenza Type A (LUIS) Negative Influenza Type B (LUIS) Negative Influenza A & B Note See Note 03/20/22 03/20/22 03/20/22 13:51 14:06 14:25 MCV MCH MCHC RDW Plt Count MPV Immature Gran % (Auto) Neut % (Auto) Lymph % (Auto) Graves % (Auto) Eos % (Auto) Baso % (Auto) Lymph # (Auto) Graves # (Auto) Eos # (Auto) Baso # (Auto) Abs Immat Gran (auto) Absolute Neuts (auto) Absolute Nucleated RBC Nucleated RBC % (auto) Smear Tech's Comments D-Dimer High Sensitivty 150 Anion Gap Estim Creat Clear Calc Estimated GFR POC Glucose 442 H* Random Glucose Estimat Average Glucose Hemoglobin A1c % Lactic Acid Lactic Acid F/U @ 2Hr Lactic Acid F/U @ 4Hr Calcium Troponin I High Sens B-Natriuretic Peptide Urine Color Urine Appearance Urine pH Ur Specific Robson Urine Protein Urine Glucose (UA) Urine Ketones Urine Blood Urine Nitrite Ur Leukocyte Esterase Acetone, Qual Negative COVID-19 (LALA) COVID-19 Clin Com Influenza Type A (LUIS) Influenza Type B (LUIS) Influenza A & B Note 03/20/22 03/20/22 03/20/22 16:23 16:23 19:23 MCV MCH MCHC RDW Plt Count MPV Immature Gran % (Auto) Neut % (Auto) Lymph % (Auto) Graves % (Auto) Eos % (Auto) Baso % (Auto) Lymph # (Auto) Graves # (Auto) Eos # (Auto) Baso # (Auto) Abs Immat Gran (auto) Absolute Neuts (auto) Absolute Nucleated RBC Nucleated RBC % (auto) Smear Tech's Comments D-Dimer High Sensitivty Anion Gap Estim Creat Clear Calc Estimated GFR POC Glucose Random Glucose Estimat Average Glucose Hemoglobin A1c % Lactic Acid 2.5 H* Lactic Acid F/U @ 2Hr 2.3 H* Lactic Acid F/U @ 4Hr Calcium Troponin I High Sens 9.6 B-Natriuretic Peptide Urine Color Urine Appearance Urine pH Ur Specific Robson Urine Protein Urine Glucose (UA) Urine Ketones Urine Blood Urine Nitrite Ur Leukocyte Esterase Acetone, Qual COVID-19 (LALA) COVID-19 Clin Com Influenza Type A (LUIS) Influenza Type B (LUIS) Influenza A & B Note 03/20/22 03/20/22 03/20/22 19:23 19:37 22:23 MCV MCH MCHC RDW Plt Count MPV Immature Gran % (Auto) Neut % (Auto) Lymph % (Auto) Graves % (Auto) Eos % (Auto) Baso % (Auto) Lymph # (Auto) Graves # (Auto) Eos # (Auto) Baso # (Auto) Abs Immat Gran (auto) Absolute Neuts (auto) Absolute Nucleated RBC Nucleated RBC % (auto) Smear Tech's Comments D-Dimer High Sensitivty Anion Gap Estim Creat Clear Calc Estimated GFR POC Glucose 249 H Random Glucose Estimat Average Glucose Hemoglobin A1c % Lactic Acid Lactic Acid F/U @ 2Hr Lactic Acid F/U @ 4Hr 1.8 Calcium Troponin I High Sens B-Natriuretic Peptide Urine Color YELLOW Urine Appearance CLEAR Urine pH 5.5 Ur Specific Robson >= 1.030 H Urine Protein NEG Urine Glucose (UA) 500 H Urine Ketones NEG Urine Blood NEG Urine Nitrite NEG Ur Leukocyte Esterase NEG Acetone, Qual COVID-19 (LALA) COVID-19 Clin Com Influenza Type A (LUIS) Influenza Type B (LUIS) Influenza A & B Note 03/20/22 03/21/22 03/21/22 23:52 06:09 06:09 MCV 86.0 MCH 25.8 L MCHC 30.0 L RDW 15.9 Plt Count 178 D MPV 10.1 Immature Gran % (Auto) 0.6 H Neut % (Auto) 81.9 H Lymph % (Auto) 10.3 L Graves % (Auto) 6.1 Eos % (Auto) 0.9 Baso % (Auto) 0.2 Lymph # (Auto) 1.4 Graves # (Auto) 0.8 Eos # (Auto) 0.1 Baso # (Auto) 0.0 Abs Immat Gran (auto) 0.08 H Absolute Neuts (auto) 11.0 H Absolute Nucleated RBC 0.000 Nucleated RBC % (auto) 0.0 Smear Tech's Comments VERIFIED D-Dimer High Sensitivty Anion Gap 14 Estim Creat Clear Calc 88.4 Estimated GFR > 60 POC Glucose Random Glucose 128 H D Estimat Average Glucose 203 Hemoglobin A1c % 8.7 Lactic Acid Lactic Acid F/U @ 2Hr Lactic Acid F/U @ 4Hr Calcium 8.2 L Troponin I High Sens B-Natriuretic Peptide Urine Color Urine Appearance Urine pH Ur Specific Robson Urine Protein Urine Glucose (UA) Urine Ketones Urine Blood Urine Nitrite Ur Leukocyte Esterase Acetone, Qual COVID-19 (LALA) COVID-19 Clin Com Influenza Type A (LUIS) Influenza Type B (LUIS) Influenza A & B Note 03/21/22 08:16 MCV MCH MCHC RDW Plt Count MPV Immature Gran % (Auto) Neut % (Auto) Lymph % (Auto) Graves % (Auto) Eos % (Auto) Baso % (Auto) Lymph # (Auto) Graves # (Auto) Eos # (Auto) Baso # (Auto) Abs Immat Gran (auto) Absolute Neuts (auto) Absolute Nucleated RBC Nucleated RBC % (auto) Smear Tech's Comments D-Dimer High Sensitivty Anion Gap Estim Creat Clear Calc Estimated GFR POC Glucose 130 H Random Glucose Estimat Average Glucose Hemoglobin A1c % Lactic Acid Lactic Acid F/U @ 2Hr Lactic Acid F/U @ 4Hr Calcium Troponin I High Sens B-Natriuretic Peptide Urine Color Urine Appearance Urine pH Ur Specific Robson Urine Protein Urine Glucose (UA) Urine Ketones Urine Blood Urine Nitrite Ur Leukocyte Esterase Acetone, Qual COVID-19 (LALA) COVID-19 Clin Com Influenza Type A (LUIS) Influenza Type B (LUIS) Influenza A & B Note Assessment and Plan (1) SUBHA (acute kidney injury): Status: Acute (2) Lactic acidosis: Status: Acute (3) Hospital-acquired pneumonia: Status: Acute (4) Sepsis: Status: Acute Plan 76-year-old male with past medical history of COPD presents the hospital with complaints of shortness of breath found to have pneumonia as well as COPD exacerbation sepsis-? possible likely secondary to pneumonia hcap/copd wbc improving ,mild tachycardia continue? IV antibiotics,blood cultures pending vanco trough subha and lactic acidosis resolved with hydration COPD : seems stable continue nebs hyperglycemia ? new onset dm: diabetic diet Hba1c levels-8.7 fs with sliding scale coverage. hx of cad: -? following with Cardiology, plan for possible CABG in March ?continue? Plavix, statin, metoprolol, lisinopril and nitroglycerin p.r.n. hypertension -? stable -? continue antihypertensives Morbid obesity:? Encouraged to lose weight, consider outpatient bariatric eval as per pcp. ?DVT prophylaxis: heparin s/c inpatient need : sepsis/pneumonia - on iv antibiotics, possible new onset dm Quality Stroke Does the patient have a stroke diagnosis?: No VTE Prior VTE?: No VTE Risk Level:: Medical - moderate - high VTE Device Contraindication: Treatment Not Indicated VTE Drug Contraindication: N/A - Med Ordered
--- NOTE | 2022-03-21 09:45 | MHC.CM.PN ---
PT REPORTS HE LIVES AT HOME WITH HIS PARTNER OF 30+ YEARS HE REPORTS HE IS INDEPENDENT AT BASELINE AND USES A CANE ONLY TO STAND HE HAS A HCP ON FILE AND CONFIRMS HIS PCP IS CARINE TODD PT REPORTS HE IS COVID-19 VACCINATED X 3 IMM DELIVERED CURRENT DC PLAN IS HOME WIT NO SERVICES PT TO ARRANGE TRANSPORT
[2022-03-21] MEDS: allopurinoL 100 MG TABLET PO (10:03)
[2022-03-21] MEDS: Cyanocobalamin (Vitamin B-12) 1,000 MCG TABLET 1000 MCG PO (10:03)
[2022-03-21] MEDS: lisinopriL 10 MG TABLET PO (10:03)
[2022-03-21] MEDS: Aspirin Enteric Coated 81 MG TABLET.DR PO (10:03)
[2022-03-21] MEDS: Clopidogrel Bisulfate 75 MG TABLET PO (10:03)
[2022-03-21] MEDS: amLODIPine Besylate 5 MG TABLET PO (10:03)
[2022-03-21] MEDS: Metoprolol Succinate ER 50 MG TAB.ER.24H PO (10:03)
[2022-03-21] MEDS: vancomycin HCL 1,000 MG in 0.9 % Sodium Chloride 250 ML 166.67 MG IV ×2 (10:13→22:00)
[2022-03-21] MEDS: Heparin Sodium,Porcine 5,000 UNIT/ML VIAL 5000 UNIT SUBCUT ×2 (10:14→22:01)
[2022-03-21] MEDS: Albuterol/Iprat 2.5/0.5MG 3 ML AMPUL.NEB INHALE ×3 (10:35→19:33)
[2022-03-21 11:49] LABS: Glucose, Whole Blood 236 mg/dL (60-115)
[2022-03-21] MEDS: Insulin Lispro 100 UNIT/ML 3 ML VIAL SUBCUT ×3 (12:33→22:01)
[2022-03-21 17:12] LABS: Glucose, Whole Blood 275 mg/dL (60-115)
[2022-03-21] MEDS: Atorvastatin Calcium 40 MG TABLET PO (17:17)
[2022-03-21] MEDS: 0.9 % Sodium Chloride Flush 3 ML SYRINGE IVFLUSH ×2 (17:17→22:01)
[2022-03-21 21:19] LABS: Glucose, Whole Blood 245 mg/dL (60-115)
[2022-03-21] MEDS: LORazepam 0.5 MG TABLET PO (22:00)
[2022-03-21] MEDS: Gabapentin 300 MG CAPSULE PO (22:00)
[2022-03-22] VITALS (10 sets, daily range): BP systolic 99–134; BP diastolic 52–72; PULSE 78–97; RESP 20; TEMP 36.8–37.7; O2SAT 90–93
[2022-03-22] MEDS: Piperacillin Sodium/Tazobactam 3.375 GM in 0.9 % Sodium Chloride 50 ML IV ×4 (06:00→23:30)
[2022-03-22 07:07] LABS: Vancomycin Trough 10.5 mcg/mL (10.0-20.0)
[2022-03-22 07:27] LABS: Glucose, Whole Blood 126 mg/dL (60-115)
[2022-03-22 07:57] LABS: Anion Gap 13 (12-20); Blood Urea Nitrogen 17 mg/dL (9-16); Carbon Dioxide 28 mmol/L (22-29); Chloride 104 mmol/L (96-108); Creatinine Clr Calc Pharmacy 86.5; Estimated Glomerular Filt Rate > 60; Glucose Fasting 132 mg/dL (60-99); Potassium 4.1 mmol/L (3.3-5.1); Sodium 141 mmol/L (135-145)
[2022-03-22] MEDS: Fluticasone/Vilanterol 100/25 BLST.W.DEV 1 PUFF INHALE (08:16)
[2022-03-22] MEDS: Albuterol/Iprat 2.5/0.5MG 3 ML AMPUL.NEB INHALE ×3 (08:16→19:18)
--- NOTE | 2022-03-22 08:19 | HO.PM.IMPN ---
Subjective Subjective Date of Service: 03/22/22 Interval History: sepsis/pneumonia Review of Systems Shortness of breath similar to yesterday still has aggressive cough. Get shortness of breath with minimal exertion. Denies any nausea vomiting or abdominal pain or fever or chills. Physical Exam Vital Signs: Vital Signs: Last Vital Signs Temp 98.2 F 03/22/22 07:30 Pulse 96 03/22/22 07:30 Resp 20 03/22/22 07:30 BP 109/57 L 03/22/22 07:30 Pulse Ox 93 03/22/22 07:30 Oxygen Flow Rate 3 03/20/22 12:17 BMI result Body Mass Index 36.5 Appearance: Alert.? Oriented X3.? not in distress.? cvs: [id number], [id number] . res:? Air entry seem diminished at bases, no wheezing abd: no rebound or guarding ,nt, bs present. ext pulses present , no cyanosis . neuro: axo3 , nonfocal. Objective Data Active Medications Acetaminophen (Acetaminophen 325 Mg Tablet) 650 mg PO Q6H PRN PRN Reason: Pain, Mild (Pain Scale 1-3) Albuterol/Ipratropium (Albuterol/Iprat 2.5/0.5mg 3 Ml Ampul.Neb) 3 ml INHALE RQ4H PRN PRN Reason: Shortness of Breath/Wheezing Albuterol/Ipratropium (Albuterol/Iprat 2.5/0.5mg 3 Ml Ampul.Neb) 3 ml INHALE RQ4H WHILE AWAKE [facility] Last Admin: 03/22/22 08:16 Dose: 3 ml Documented by: ANTONIO Allopurinol (Allopurinol 100 Mg Tablet) 100 mg PO DAILY [facility] Last Admin: 03/21/22 10:03 Dose: 100 mg Documented by: ROSS Amlodipine Besylate (Amlodipine Besylate 5 Mg Tablet) 5 mg PO DAILY [facility]; Protocol Last Admin: 03/21/22 10:03 Dose: 5 mg Documented by: ROSS Aspirin (Aspirin Enteric Coated 81 Mg Tablet.) 81 mg PO DAILY [facility] Last Admin: 03/21/22 10:03 Dose: 81 mg Documented by: ROSS Atorvastatin Calcium (Atorvastatin Calcium 40 Mg Tablet) 40 mg PO DAILY@1700 [facility] Last Admin: 03/21/22 17:17 Dose: 40 mg Documented by: WINNIE Clopidogrel Bisulfate (Clopidogrel Bisulfate 75 Mg Tablet) 75 mg PO DAILY [facility] Last Admin: 03/21/22 10:03 Dose: 75 mg Documented by: ROSS Cyanocobalamin (Cyanocobalamin (Vitamin B-12) 1,000 Mcg Tablet) 1,000 mcg PO DAILY [facility] Last Admin: 03/21/22 10:03 Dose: 1,000 mcg Documented by: ROSS Dextrose (Dextrose 50 % 25 Gm/50 Ml Syringe) 25 gm IVPUSH Q15M PRN; Protocol PRN Reason: per Hypoglycemia Standing Ord. Docusate Sodium (Docusate Sodium 100 Mg Capsule) 100 mg PO DAILY PRN PRN Reason: Constipation Fluticasone/Vilanterol (Fluticasone/Vilanterol 100/25 Blst.W.Dev) 1 puff INHALE RDAILY [facility] Last Admin: 03/22/22 08:16 Dose: 1 puff Documented by: ANTONIO Gabapentin (Gabapentin 300 Mg Capsule) 300 mg PO BEDTIME [facility] Last Admin: 03/21/22 22:00 Dose: 300 mg Documented by: BRIAN Glucose (Glucose Gel 15 Gm Gel..Gram.) 15 gm PO Q15M PRN; Protocol PRN Reason: per Hypoglycemia Standing Ord. Heparin Sodium (Porcine) (Heparin Sodium,Porcine 5,000 Unit/Ml Vial) 5,000 unit SUBCUT Q12H [facility] Last Admin: 03/21/22 22:01 Dose: 5,000 unit Documented by: BRIAN Piperacillin Sod/Tazobactam (Sod 3.375 gm/ Sodium Chloride) 50 mls @ 100 mls/hr IV Q6H [facility] Last Infusion: 03/22/22 07:35 Dose: 0 mls/hr Documented by: WINNIE Vancomycin HCl 1,000 mg/ (Sodium Chloride) 270 mls @ 166.667 mls/hr IV Q12H [facility] Last Infusion: 03/21/22 23:24 Dose: 0 mls/hr Documented by: BRIAN Insulin Human Lispro (Insulin Lispro 100 Unit/Ml 3 Ml Vial) 0 unit SUBCUT QIDACHS [facility]; Protocol Last Admin: 03/22/22 07:34 Dose: Not Given Documented by: WINNIE Non-Admin Reason: No Insulin Coverage Lisinopril (Lisinopril 10 Mg Tablet) 10 mg PO DAILY [facility]; Protocol Last Admin: 03/21/22 10:03 Dose: 10 mg Documented by: ROSS Lorazepam (Lorazepam 0.5 Mg Tablet) 0.5 mg PO BEDTIME [facility] Last Admin: 03/21/22 22:00 Dose: 0.5 mg Documented by: BRIAN Metoprolol Succinate (Metoprolol Succinate Er 50 Mg Tab.Er.24h) 50 mg PO DAILY [facility]; Protocol Last Admin: 03/21/22 10:03 Dose: 50 mg Documented by: ROSS Nitroglycerin (Nitroglycerin 0.4 Mg Tab.Subl) 0.4 mg SUBLINGUAL Q5M PRN PRN Reason: Chest Pain Omeprazole (Omeprazole 20 Mg Capsule.Dr) 20 mg PO BID@0630,1630 PRN PRN Reason: Acid Reflux Ondansetron HCl (Ondansetron Hcl 4 Mg/2 Ml Vial) 4 mg IVPUSH Q8H PRN PRN Reason: Nausea and Vomiting Pharmacy Consult (Consult Rx Perform Med Rec) 1 each MISCELLANE ONCE PRN PRN Reason: Consult order Pharmacy Consult (Consult Rx Vancomycin Dosing) 1 each MISCELLANE DAILY PRN PRN Reason: Consult order Sodium Chloride (0.9 % Sodium Chloride Flush 3 Ml Syringe) 3 ml IVFLUSH QSHIFT [facility] Last Admin: 03/21/22 22:01 Dose: 3 ml Documented by: BRIAN Labs CBC & Chem 7: 03/21/22 06:09 03/22/22 06:32 Labs: Laboratory Results - last 24 hr 03/21/22 03/21/22 03/21/22 08:16 11:06 17:09 Anion Gap Estim Creat Clear Calc Estimated GFR POC Glucose 130 H 236 H 275 H Fasting Glucose Calcium Vancomycin Trough 03/21/22 03/22/22 03/22/22 20:55 06:32 06:32 Anion Gap 13 Estim Creat Clear Calc 86.5 Estimated GFR > 60 POC Glucose 245 H Fasting Glucose 132 H Calcium 8.0 L Vancomycin Trough 10.5 03/22/22 07:10 Anion Gap Estim Creat Clear Calc Estimated GFR POC Glucose 126 H Fasting Glucose Calcium Vancomycin Trough Microbiology Microbiology Results: Microbiology 03/20/22 13:51 Blood Culture - Preliminary Blood - Venous No growth after 24 hours. 03/20/22 13:31 Blood Culture - Preliminary Blood - Venous No growth after 24 hours. Assessment and Plan (1) Pneumonia: Status: Acute (2) Sepsis: Status: Acute Plan 76-year-old male with past medical history of COPD presents the hospital with complaints of shortness of breath found to have pneumonia as well as COPD exacerbation sepsis-? possible likely secondary to pneumonia hcap/copd wbc improving ,mild tachycardia continue? IV antibiotics,blood cultures pending vanco [id number] today jimmie and lactic acidosis resolved with hydration ?COPD : seems stable continue nebs hyperglycemia ? new onset dm: diabetic diet Hba1c levels-8.7 fs with sliding scale coverage,added metformin hx of cad: -? following with Cardiology, plan for possible CABG in March ?continue? Plavix, statin, metoprolol, lisinopril and nitroglycerin p.r.n. ?hypertension -? stable -? continue antihypertensives Morbid obesity:? Encouraged to lose weight, consider outpatient bariatric eval as per pcp. ?DVT prophylaxis: heparin s/c inpatient need : sepsis/pneumonia - on iv antibiotics, possible new onset dm Quality Stroke Does the patient have a stroke diagnosis?: No VTE Prior VTE?: No VTE Risk Level:: Medical - moderate - high VTE Device Contraindication: Treatment Not Indicated VTE Drug Contraindication: N/A - Med Ordered
[2022-03-22] MEDS: Metoprolol Succinate ER 50 MG TAB.ER.24H PO (09:15)
[2022-03-22] MEDS: amLODIPine Besylate 5 MG TABLET PO (09:15)
[2022-03-22] MEDS: Cyanocobalamin (Vitamin B-12) 1,000 MCG TABLET 1000 MCG PO (09:15)
[2022-03-22] MEDS: Aspirin Enteric Coated 81 MG TABLET.DR PO (09:15)
[2022-03-22] MEDS: Clopidogrel Bisulfate 75 MG TABLET PO (09:15)
[2022-03-22] MEDS: allopurinoL 100 MG TABLET PO (09:15)
[2022-03-22] MEDS: lisinopriL 10 MG TABLET PO (09:15)
--- NOTE | 2022-03-22 09:15 | HE.PHANOTE ---
RE WILLIAM Change dose to 1250mg q12h, resulting in an AUC of 459. Next trough 5-9 @1900
[2022-03-22] MEDS: vancomycin HCL 1,250 MG in 0.9 % Sodium Chloride 250 ML 166.67 MG IV ×2 (09:18→21:27)
[2022-03-22] MEDS: 0.9 % Sodium Chloride Flush 3 ML SYRINGE IVFLUSH ×3 (09:20→21:28)
[2022-03-22 11:08] LABS: Glucose, Whole Blood 329 mg/dL (60-115)
[2022-03-22] MEDS: Insulin Lispro 100 UNIT/ML 3 ML VIAL SUBCUT ×3 (11:37→21:27)
[2022-03-22] MEDS: Heparin Sodium,Porcine 5,000 UNIT/ML VIAL 5000 UNIT SUBCUT ×2 (11:38→21:27)
[2022-03-22] MEDS: guaiFEN/Codeine SF 200/20/10ML 10 ML LIQUID 5 ML PO ×3 (12:36→23:30)
[2022-03-22 15:47] LABS: Glucose, Whole Blood 245 mg/dL (60-115)
[2022-03-22] MEDS: Atorvastatin Calcium 40 MG TABLET PO (16:42)
[2022-03-22] MEDS: metFORMIN HCl 500 MG TABLET PO (16:42)
[2022-03-22 19:52] LABS: Glucose, Whole Blood 176 mg/dL (60-115)
[2022-03-22] MEDS: Gabapentin 300 MG CAPSULE PO (21:27)
[2022-03-22] MEDS: LORazepam 0.5 MG TABLET PO (21:27)
[2022-03-23] VITALS (11 sets, daily range): BP systolic 101–131; BP diastolic 48–80; PULSE 68–95; RESP 16–20; TEMP 36.8–37.3; O2SAT 89–98
[2022-03-23] MEDS: guaiFEN/Codeine SF 200/20/10ML 10 ML LIQUID 5 ML PO ×4 (05:58→23:58)
[2022-03-23] MEDS: Piperacillin Sodium/Tazobactam 3.375 GM in 0.9 % Sodium Chloride 50 ML IV ×4 (05:59→23:58)
[2022-03-23 07:10] LABS: Anion Gap 13 (12-20); Blood Urea Nitrogen 14 mg/dL (9-16); Calcium 8.1 mg/dL (8.4-10.2); Carbon Dioxide 28 mmol/L (22-29); Chloride 103 mmol/L (96-108); Creatinine Clr Calc Pharmacy 89.4; Estimated Glomerular Filt Rate > 60; Glucose Fasting 141 mg/dL (60-99); Potassium 4.2 mmol/L (3.3-5.1); Sodium 140 mmol/L (135-145)
[2022-03-23 07:43] LABS: Glucose, Whole Blood 135 mg/dL (60-115)
[2022-03-23] MEDS: Albuterol/Iprat 2.5/0.5MG 3 ML AMPUL.NEB INHALE ×4 (07:47→18:55)
[2022-03-23] MEDS: Fluticasone/Vilanterol 100/25 BLST.W.DEV 1 PUFF INHALE (07:47)
--- NOTE | 2022-03-23 08:10 | HO.PM.IMPN ---
Subjective Subjective Date of Service: 03/23/22 Interval History: pneumonia/copd Review of Systems Shortness of breath with slight execrsion and talking slowly due to sob/cough Get shortness of breath with minimal exertion. Denies any nausea vomiting or abdominal pain or fever or chills. Physical Exam Vital Signs: Vital Signs: Last Vital Signs Temp 98.3 F 03/23/22 07:27 Pulse 73 03/23/22 07:56 Resp 16 03/23/22 07:56 BP 101/52 L 03/23/22 07:27 Pulse Ox 93 03/23/22 07:27 Oxygen Flow Rate 3 03/20/22 12:17 BMI result Body Mass Index 36.5 ? Appearance: Alert.? Oriented X3.? not in distress.? cvs: rrr, [id number] . res:? Air entry seem diminished at bases, no wheezing abd: no rebound or guarding ,nt, bs present. ext pulses present , no cyanosis . neuro: axo3 , nonfocal. Objective Data Active Medications Acetaminophen (Acetaminophen 325 Mg Tablet) 650 mg PO Q6H PRN PRN Reason: Pain, Mild (Pain Scale 1-3) Albuterol/Ipratropium (Albuterol/Iprat 2.5/0.5mg 3 Ml Ampul.Neb) 3 ml INHALE RQ4H PRN PRN Reason: Shortness of Breath/Wheezing Albuterol/Ipratropium (Albuterol/Iprat 2.5/0.5mg 3 Ml Ampul.Neb) 3 ml INHALE RQ4H WHILE AWAKE [facility] Last Admin: 03/23/22 07:47 Dose: 3 ml Documented by: JESSICA Allopurinol (Allopurinol 100 Mg Tablet) 100 mg PO DAILY [facility] Last Admin: 03/22/22 09:15 Dose: 100 mg Documented by: WINNIE Amlodipine Besylate (Amlodipine Besylate 5 Mg Tablet) 5 mg PO DAILY [facility]; Protocol Last Admin: 03/22/22 09:15 Dose: 5 mg Documented by: WINNIE Aspirin (Aspirin Enteric Coated 81 Mg Tablet.) 81 mg PO DAILY [facility] Last Admin: 03/22/22 09:15 Dose: 81 mg Documented by: WINNIE Atorvastatin Calcium (Atorvastatin Calcium 40 Mg Tablet) 40 mg PO DAILY@1700 [facility] Last Admin: 03/22/22 16:42 Dose: 40 mg Documented by: WINNIE Clopidogrel Bisulfate (Clopidogrel Bisulfate 75 Mg Tablet) 75 mg PO DAILY [facility] Last Admin: 03/22/22 09:15 Dose: 75 mg Documented by: WINNIE Cyanocobalamin (Cyanocobalamin (Vitamin B-12) 1,000 Mcg Tablet) 1,000 mcg PO DAILY [facility] Last Admin: 03/22/22 09:15 Dose: 1,000 mcg Documented by: WINNIE Dextrose (Dextrose 50 % 25 Gm/50 Ml Syringe) 25 gm IVPUSH Q15M PRN; Protocol PRN Reason: per Hypoglycemia Standing Ord. Docusate Sodium (Docusate Sodium 100 Mg Capsule) 100 mg PO DAILY PRN PRN Reason: Constipation Fluticasone/Vilanterol (Fluticasone/Vilanterol 100/25 Blst.W.Dev) 1 puff INHALE RDAILY [facility] Last Admin: 03/23/22 07:47 Dose: 1 puff Documented by: JESSICA Gabapentin (Gabapentin 300 Mg Capsule) 300 mg PO BEDTIME [facility] Last Admin: 03/22/22 21:27 Dose: 300 mg Documented by: JERRY Glucose (Glucose Gel 15 Gm Gel..Gram.) 15 gm PO Q15M PRN; Protocol PRN Reason: per Hypoglycemia Standing Ord. Guaifenesin/Codeine Phosphate (Guaifen/Codeine Sf 200/20/10ml 10 Ml Liquid) 5 ml PO Q6H [facility] Last Admin: 03/23/22 05:58 Dose: 5 ml Documented by: JERRY Heparin Sodium (Porcine) (Heparin Sodium,Porcine 5,000 Unit/Ml Vial) 5,000 unit SUBCUT Q12H [facility] Last Admin: 03/22/22 21:27 Dose: 5,000 unit Documented by: JERRY Piperacillin Sod/Tazobactam (Sod 3.375 gm/ Sodium Chloride) 50 mls @ 100 mls/hr IV Q6H [facility] Last Infusion: 03/23/22 06:35 Dose: 0 mls/hr Documented by: JERRY Vancomycin HCl 1,250 mg/ (Sodium Chloride) 250 mls @ 166.667 mls/hr IV Q12H [facility] Last Infusion: 03/22/22 23:32 Dose: 0 mls/hr Documented by: JERRY Insulin Human Lispro (Insulin Lispro 100 Unit/Ml 3 Ml Vial) 0 unit SUBCUT QIDACHS [facility]; Protocol Last Admin: 03/22/22 21:27 Dose: 2 unit Documented by: JERRY Lisinopril (Lisinopril 10 Mg Tablet) 10 mg PO DAILY [facility]; Protocol Last Admin: 03/22/22 09:15 Dose: 10 mg Documented by: WINNIE Lorazepam (Lorazepam 0.5 Mg Tablet) 0.5 mg PO BEDTIME [facility] Last Admin: 03/22/22 21:27 Dose: 0.5 mg Documented by: JERRY Metformin HCl (Metformin Hcl 500 Mg Tablet) 500 mg PO BIDWM [facility] Last Admin: 03/22/22 16:42 Dose: 500 mg Documented by: WINNIE Metoprolol Succinate (Metoprolol Succinate Er 50 Mg Tab.Er.24h) 50 mg PO DAILY [facility]; Protocol Last Admin: 03/22/22 09:15 Dose: 50 mg Documented by: WINNIE Nitroglycerin (Nitroglycerin 0.4 Mg Tab.Subl) 0.4 mg SUBLINGUAL Q5M PRN PRN Reason: Chest Pain Omeprazole (Omeprazole 20 Mg Capsule.Dr) 20 mg PO BID@0630,1630 PRN PRN Reason: Acid Reflux Ondansetron HCl (Ondansetron Hcl 4 Mg/2 Ml Vial) 4 mg IVPUSH Q8H PRN PRN Reason: Nausea and Vomiting Pharmacy Consult (Consult Rx Perform Med Rec) 1 each MISCELLANE ONCE PRN PRN Reason: Consult order Pharmacy Consult (Consult Rx Vancomycin Dosing) 1 each MISCELLANE DAILY PRN PRN Reason: Consult order Sodium Chloride (0.9 % Sodium Chloride Flush 3 Ml Syringe) 3 ml IVFLUSH QSHIFT [facility] Last Admin: 03/22/22 21:28 Dose: 3 ml Documented by: JERRY Labs CBC & Chem 7: 03/21/22 06:09 03/23/22 06:15 Labs: Laboratory Results - last 24 hr 03/22/22 03/22/22 03/22/22 10:52 15:39 19:43 Anion Gap Estim Creat Clear Calc Estimated GFR POC Glucose 329 H 245 H 176 H Fasting Glucose Calcium 03/23/22 03/23/22 06:15 07:25 Anion Gap 13 Estim Creat Clear Calc 89.4 Estimated GFR > 60 POC Glucose 135 H Fasting Glucose 141 H Calcium 8.1 L Microbiology Microbiology Results: Microbiology 03/20/22 13:51 Blood Culture - Preliminary Blood - Venous No growth after 48 hours. 03/20/22 13:31 Blood Culture - Preliminary Blood - Venous No growth after 48 hours. Assessment and Plan (1) Pneumonia: Status: Acute (2) Sepsis: Status: Acute Plan 76-year-old male with past medical history of COPD presents the hospital with complaints of shortness of breath found to have pneumonia as well as COPD exacerbation sepsis-? possible likely secondary to pneumonia hcap/copd wbc improving , tachycardia improved.sepsis imrpoved. continue? IV antibiotics day2,blood cultures neg @48hrs vanco [id number] ysterday jimmie and lactic acidosis resolved with hydration ?COPD : seems stable continue nebs hyperglycemia ? new onset dm: diabetic diet Hba1c levels-8.7 fs with sliding scale coverage,added metformin hx of cad: -? following with Cardiology, plan for possible CABG in March ?continue? Plavix, statin, metoprolol, lisinopril and nitroglycerin p.r.n. ?hypertension -? stable -? continue antihypertensives Morbid obesity:? Encouraged to lose weight, consider outpatient bariatric eval as per pcp. ?DVT prophylaxis: heparin s/c inpatient need : spneumonia - on iv antibiotics, possible new onset dm Quality Stroke Does the patient have a stroke diagnosis?: No VTE Prior VTE?: No VTE Risk Level:: Medical - moderate - high VTE Device Contraindication: Treatment Not Indicated VTE Drug Contraindication: N/A - Med Ordered
[2022-03-23] MEDS: vancomycin HCL 1,250 MG in 0.9 % Sodium Chloride 250 ML 166.67 MG IV ×2 (10:47→20:15)
[2022-03-23] MEDS: 0.9 % Sodium Chloride Flush 3 ML SYRINGE IVFLUSH ×3 (10:48→20:15)
[2022-03-23] MEDS: metFORMIN HCl 500 MG TABLET PO ×2 (10:52→17:58)
[2022-03-23] MEDS: Heparin Sodium,Porcine 5,000 UNIT/ML VIAL 5000 UNIT SUBCUT ×2 (10:52→23:57)
[2022-03-23] MEDS: Benzonatate 100 MG CAPSULE PO ×3 (10:52→20:15)
[2022-03-23] MEDS: Metoprolol Succinate ER 50 MG TAB.ER.24H PO (10:52)
[2022-03-23] MEDS: guaiFENesin LA 600 MG TAB.ER.12H PO ×2 (10:53→20:15)
[2022-03-23] MEDS: Clopidogrel Bisulfate 75 MG TABLET PO (10:53)
[2022-03-23] MEDS: Cyanocobalamin (Vitamin B-12) 1,000 MCG TABLET 1000 MCG PO (10:53)
[2022-03-23] MEDS: Aspirin Enteric Coated 81 MG TABLET.DR PO (10:53)
[2022-03-23] MEDS: amLODIPine Besylate 5 MG TABLET PO (10:54)
[2022-03-23] MEDS: allopurinoL 100 MG TABLET PO (10:54)
[2022-03-23 11:30] LABS: Glucose, Whole Blood 186 mg/dL (60-115)
[2022-03-23] MEDS: Insulin Lispro 100 UNIT/ML 3 ML VIAL SUBCUT ×2 (11:54→17:57)
--- NOTE | 2022-03-23 12:54 | MHC.CM.PN ---
jane gillette pt has copd and pneumonia not ready for dc at this time
[2022-03-23 16:36] LABS: Glucose, Whole Blood 214 mg/dL (60-115)
[2022-03-23] MEDS: Atorvastatin Calcium 40 MG TABLET PO (17:58)
[2022-03-23] MEDS: Acetaminophen 325 MG TABLET 650 MG PO (18:13)
[2022-03-23 19:38] LABS: Vancomycin Trough 13.9 mcg/mL (10.0-20.0)
[2022-03-23] MEDS: LORazepam 0.5 MG TABLET PO (20:15)
[2022-03-23] MEDS: Gabapentin 300 MG CAPSULE PO (20:15)
[2022-03-23 20:37] LABS: Glucose, Whole Blood 140 mg/dL (60-115)
[2022-03-24] VITALS (10 sets, daily range): BP systolic 95–142; BP diastolic 49–67; PULSE 69–96; RESP 16–20; TEMP 36.7–37.9; O2SAT 89–95
[2022-03-24] MEDS: guaiFEN/Codeine SF 200/20/10ML 10 ML LIQUID 5 ML PO ×4 (05:33→23:53)
[2022-03-24] MEDS: Piperacillin Sodium/Tazobactam 3.375 GM in 0.9 % Sodium Chloride 50 ML IV (05:33)
[2022-03-24 07:40] LABS: Glucose, Whole Blood 120 mg/dL (60-115)
[2022-03-24 08:04] LABS: Hematocrit 37.6 % (42.0-52.0); Hemoglobin 11.4 g/dl (14.0-18.0); Mean Corpuscular HGB Conc 30.3 g/dl (31.0-36.0); Mean Corpuscular Hemoglobin 26.2 pg (27.0-33.0); Mean Corpuscular Volume 86.4 fL (80.0-98.0); Platelet Count 182 X10*3/uL (160-400); Red Blood Count 4.35 X10*6/uL (4.60-5.80); Red Cell Distribution Width 15.5 % (11.0-16.0)
[2022-03-24] MEDS: Albuterol/Iprat 2.5/0.5MG 3 ML AMPUL.NEB INHALE ×4 (08:14→21:12)
[2022-03-24] MEDS: Fluticasone/Vilanterol 100/25 BLST.W.DEV 1 PUFF INHALE (08:14)
[2022-03-24] MEDS: Metoprolol Succinate ER 50 MG TAB.ER.24H PO (08:35)
[2022-03-24] MEDS: Clopidogrel Bisulfate 75 MG TABLET PO (08:35)
[2022-03-24] MEDS: metFORMIN HCl 500 MG TABLET PO ×2 (08:35→18:01)
[2022-03-24] MEDS: Benzonatate 100 MG CAPSULE PO ×3 (08:35→20:54)
[2022-03-24] MEDS: vancomycin HCL 1,250 MG in 0.9 % Sodium Chloride 250 ML 166.67 MG IV (08:35)
[2022-03-24] MEDS: Aspirin Enteric Coated 81 MG TABLET.DR PO (08:35)
[2022-03-24] MEDS: Cyanocobalamin (Vitamin B-12) 1,000 MCG TABLET 1000 MCG PO (08:35)
[2022-03-24] MEDS: amLODIPine Besylate 5 MG TABLET PO (08:35)
[2022-03-24] MEDS: allopurinoL 100 MG TABLET PO (08:35)
[2022-03-24] MEDS: 0.9 % Sodium Chloride Flush 3 ML SYRINGE IVFLUSH ×3 (08:35→21:10)
[2022-03-24] MEDS: guaiFENesin LA 600 MG TAB.ER.12H PO ×2 (08:35→20:54)
[2022-03-24 08:41] LABS: Anion Gap 13 (12-20); Blood Urea Nitrogen 11 mg/dL (9-16); Calcium 7.9 mg/dL (8.4-10.2); Carbon Dioxide 29 mmol/L (22-29); Chloride 102 mmol/L (96-108); Creatinine Clr Calc Pharmacy 97.2; Estimated Glomerular Filt Rate > 60; Glucose Random 127 mg/dL (60-115); Potassium 4.4 mmol/L (3.3-5.1); Sodium 140 mmol/L (135-145)
--- NOTE | 2022-03-24 10:29 | HE.PHANOTE ---
VANCOMYCIN DOSING BASED OFF MORNING LABS DOSE CONTINUED AT 1250 Q 8 HOUR. NEXT TROUGH THIS EVENING AT 1900
--- NOTE | 2022-03-24 11:05 | P.DS_ITS ---
DS: Providers Provider Date of Service: 03/24/22 Date of admission: 03/20/22 22:57 Primary care physician: Jaxon Coffman MD DS: Diagnosis Discharge Diagnosis (1) Pneumonia: Status: Acute (2) Sepsis: Status: Resolved (3) Diabetes: Status: Acute DS: Summary Hospital Course Hospital Course: Chief Complaint: SOB This is a 76-year-old male with past medical history of CAD, COPD, CAD status post 2 stents in February 2022, HTN, HLD, obesity, MAYA, history of prostate cancer, status post prostatectomy, RBBB who presents to the hospital with complaints of worsening shortness of breath cough and generally not feeling well.? Patient was discharged from the hospital on 02/23 after being managed for COPD exacerbation as well as pneumonia.? Patient reports that on discharge was feeling better but had a recent hospitalization for CAD as well as stent placement at [facility], he reports that within few days post discharge she started developing worsening shortness of breath cough and sputum production.? Patient reports that he had a fever of 100.9 at home, has been having chills, denies any chest pain, no abdominal pain nausea vomiting, no diarrhea constipation, no urinary symptoms and no lower extremity edema.? He has no orthopnea or PND. Of note patient was started on home O2 after being discharged from the hospital in February On arrival to the ED patient vitals are significant for respiratory rate of 22 and satting 91% on 3 L of baseline oxygen, Labs on arrival are significant for WBC count of 17.0, creatinine of 1.49 with a baseline of around 1, glucose of 478, lactic acid of 3.1 that resolved after fluids, COVID and influenza negative Chest x-ray shows patchy opacities at the left lung base most consistent with infiltrates Patient started on IV antibiotics and will be admitted for further management Hospital course: sepsis due to pneumonia, sepsis now resolved, cultures have been negative, treated in the hospital with IV Zosyn and vancomycin. He is doing better. Leukocytosis resolved he has no fever will transition to oral antibiotics for a total of 7 days of antibiotics. atient basis. COPD : No exacerbation at this time. Continue usual inhalers. Follow-up with pulmonology on outp hyperglycemia--new to diabetes, A1C of 8.7. Not comfortable with insulin, started on Metformin, follow up with PCP hx of cad: following with Cardiology, plan for possible CABG later this month ?continue? Plavix, statin, metoprolol, lisinopril and nitroglycerin p.r.n. Mild SUBHA on admission with Cr of 1.49 and now 0.81, resolved ?hypertension--resume home meds Morbid obesity:? Encouraged to lose weight, consider outpatient bariatric eval as per pcp. Time Spent with Patient Time attestation: Total time spent providing and/or coordinating discharge services: Discharge coordination time: Greater than 30 minutes Quality: Safe Use of Opioids Does Pt have an Active Cancer Diagnosis on the Problem List?: No Quality: Stroke Does the patient have a stroke diagnosis?: No Physical Exam Vital Signs: Vital Signs: Selected Entries 03/25/22 10:56 Temperature 98.2 F Pulse Rate 81 Respiratory Rate 18 Blood Pressure 125/60 Pulse Oximetry 91 L Oxygen Delivery Me thod Nasal Cannula Oxygen Flow Rate 3 General: AO X 3, no acute distress Resp: CTA bilateral CVS: S1,S2,RRR GI: +BS, NT, no distention Skin: No rash Neuro: motor grossly intact Psych: appropriate affect DS: Data Data Completed and Pending Labs on day of discharge: Laboratory Results - last 24 hr 03/23/22 03/23/22 03/23/22 11:03 16:26 19:05 WBC RBC Hgb Hct MCV MCH MCHC RDW Plt Count MPV Absolute Nucleated RBC Nucleated RBC % (auto) Sodium Potassium Chloride Carbon Dioxide Anion Gap BUN Creatinine Estim Creat Clear Calc Estimated GFR POC Glucose 186 H 214 H Random Glucose Calcium Vancomycin Trough 13.9 03/23/22 03/24/22 03/24/22 20:33 07:15 07:15 WBC 8.0 RBC 4.35 L Hgb 11.4 L Hct 37.6 L MCV 86.4 MCH 26.2 L MCHC 30.3 L RDW 15.5 Plt Count 182 MPV 10.0 Absolute Nucleated RBC 0.000 Nucleated RBC % (auto) 0.0 Sodium 140 Potassium 4.4 Chloride 102 Carbon Dioxide 29 Anion Gap 13 BUN 11 Creatinine 0.81 Estim Creat Clear Calc 97.2 Estimated GFR > 60 POC Glucose 140 H Random Glucose 127 H Calcium 7.9 L Vancomycin Trough 03/24/22 07:32 WBC RBC Hgb Hct MCV MCH MCHC RDW Plt Count MPV Absolute Nucleated RBC Nucleated RBC % (auto) Sodium Potassium Chloride Carbon Dioxide Anion Gap BUN Creatinine Estim Creat Clear Calc Estimated GFR POC Glucose 120 H Random Glucose Calcium Vancomycin Trough Preliminary micro results at discharge 03/20/22 13:51 Blood Culture - Preliminary Blood - Venous No growth after 48 hours. 03/20/22 13:31 Blood Culture - Preliminary Blood - Venous No growth after 48 hours. Discharge Plan Discharge Anticipated Discharge Date/Time: 03/25/22 11:54 Patient Disposition: Home, Self-Care Discharge Diagnosis: Pneumonia Referrals: Jaxon Coffman MD [Primary Care Provider] - 1 Week Payton Albarado RN [Registered Nurse] - 1 Week (Please schedule a follow-up appointment for diabetic education.) Discharge Medications: New metformin 500 mg Tablet 500 mg PO BIDWM Qty: 60 0RF amoxicillin-pot clavulanate 875-125 mg Tablet 875 mg PO Q12H Qty: 7 0RF (DME) FreeStyle Lite Strips Strip Qty: 100 0RF Rx Instructions: Test four times a day or as directed. (DME) blood-glucose meter [FreeStyle Lite Meter] Kit Qty: 1 0RF Rx Instructions: As Directed alcohol swabs Pads, Medicated 1 pad TOPICAL QIDACHS Qty: 100 0RF Rx Instructions: Use four times a day or as directed. (DME) lancets [FreeStyle Lancets] 28 gauge Misc Qty: 100 0RF Rx Instructions: Test four times a day or as directed. codeine-guaifenesin 10-100 mg/5 mL Liquid 5 ml PO Q6H Qty: 120 0RF Continued ipratropium-albuterol 0.5 mg-3 mg(2.5 mg base)/3 mL solution for nebulization 3 ml inhalation BID 30 Days Qty: 180 11RF clopidogrel 75 mg tablet 75 mg PO DAILY Qty: 30 6RF gabapentin [Neurontin] 300 mg capsule 300 mg PO BEDTIME Qty: 30 0RF nitroglycerin 0.4 mg Tablet, Sublingual 0.4 mg SUBLINGUAL Q5M PRN (Reason: Chest Pain) omeprazole 20 mg capsule,delayed release(DR/EC) 20 mg PO BID@0630,1630 PRN (Reason: Acid Reflux) Rx Instructions: Please obtain refills from PCP lorazepam 0.5 mg tablet 1 tab PO BEDTIME cyanocobalamin (vitamin B-12) 1,000 mcg Tablet 1,000 mcg PO DAILY aspirin 81 mg Tablet,Delayed Release (Dr/Ec) 81 mg PO DAILY amlodipine 5 mg tablet 5 mg PO DAILY albuterol sulfate 90 mcg/actuation HFA aerosol inhaler 1 inh inhalation QID PRN (Reason: bronchospasm) Qty: 8.5 0RF fluticasone propion-salmeterol [AirDuo RespiClick] 113-14 mcg/actuation aerosol powdr breath activated 1 inh inhalation BID Qty: 1 0RF allopurinol 100 mg tablet 100 mg PO DAILY lisinopril 10 mg tablet 10 mg PO DAILY No Action atorvastatin 40 mg tablet 40 mg PO DAILY@1700 Qty: 90 3RF metoprolol succinate [Toprol XL] 50 mg tablet extended release 24 hr 50 mg PO DAILY Qty: 90 2RF Discharge Orders: Discharge Order (Routine); Ordered 03/25/22 Ordered By: Shaji Lawler Activity on Discharge: As tolerated Stand Alone Forms: Patient Portal Discharge page Care Plan Goals: Full recovery from pneumonia Health Concerns: pneumonia Plan of Treatment: take antibiotics (Augmentin) as recommended and follow up with her primary care doctor in your lung doctor make the appointment Take Metformin for diabetes, check sugars every morning, follow up with Dr. Coffman juan week, call for appointment check your blood sugars daily in the morning Assessment: as above Patient Instructions: Type 2 Diabetes in Adults: New Diagnosis (DC), How to Check your Blood Sugar (DC) Discharge Date/Time: 03/25/22 16:23
[2022-03-24 11:36] LABS: Glucose, Whole Blood 170 mg/dL (60-115)
--- NOTE | 2022-03-24 12:32 | MHC.CM.PN ---
pt dcd home no skilled services ordered by
[2022-03-24] MEDS: Insulin Lispro 100 UNIT/ML 3 ML VIAL SUBCUT ×2 (12:33→20:58)
[2022-03-24] MEDS: Amoxicillin/Potassium Clav 875 MG TABLET PO ×2 (12:34→23:53)
[2022-03-24 16:04] LABS: Glucose, Whole Blood 137 mg/dL (60-115)
--- NOTE | 2022-03-24 16:39 | HO.PM.IMPN ---
Subjective Subjective Date of Service: 03/24/22 Interval History: f/u on PNA, new diabetes interval history: getting better Review of Systems some sob, and abisai, no fever Physical Exam Vital Signs: Vital Signs: Last Vital Signs Temp 98.1 F 03/24/22 15:38 Pulse 92 03/24/22 15:38 Resp 16 03/24/22 15:38 BP 142/67 H 03/24/22 15:38 Pulse Ox 95 03/24/22 15:38 Oxygen Flow Rate 3 03/20/22 12:17 BMI result Body Mass Index 36.5 Const: Other: General: AO X 3, no acute distress Resp: rhonchi, mild wheeze CVS: S1,S2,RRR GI: +BS, NT, no distention Skin: No rash Neuro: motor grossly intact Psych: appropriate affect Objective Data Active Medications Acetaminophen (Acetaminophen 325 Mg Tablet) 650 mg PO Q6H PRN PRN Reason: Pain, Mild (Pain Scale 1-3) Last Admin: 03/23/22 18:13 Dose: 650 mg Documented by: ROSALINE Albuterol/Ipratropium (Albuterol/Iprat 2.5/0.5mg 3 Ml Ampul.Neb) 3 ml INHALE RQ4H PRN PRN Reason: Shortness of Breath/Wheezing Albuterol/Ipratropium (Albuterol/Iprat 2.5/0.5mg 3 Ml Ampul.Neb) 3 ml INHALE RQ4H WHILE AWAKE [facility] Last Admin: 03/24/22 15:33 Dose: 3 ml Documented by: JESSICA Allopurinol (Allopurinol 100 Mg Tablet) 100 mg PO DAILY [facility] Last Admin: 03/24/22 08:35 Dose: 100 mg Documented by: ROSALINE Amlodipine Besylate (Amlodipine Besylate 5 Mg Tablet) 5 mg PO DAILY [facility]; Protocol Last Admin: 03/24/22 08:35 Dose: 5 mg Documented by: ROSALINE Amoxicillin/Clavulanate Potassium (Amoxicillin/Potassium Clav 875 Mg Tablet) 875 mg PO Q12H [facility] Last Admin: 03/24/22 12:34 Dose: 875 mg Documented by: ROSALINE Aspirin (Aspirin Enteric Coated 81 Mg Tablet.) 81 mg PO DAILY [facility] Last Admin: 03/24/22 08:35 Dose: 81 mg Documented by: ROSALINE Atorvastatin Calcium (Atorvastatin Calcium 40 Mg Tablet) 40 mg PO DAILY@1700 [facility] Last Admin: 03/23/22 17:58 Dose: 40 mg Documented by: ROSALINE Benzonatate (Benzonatate 100 Mg Capsule) 100 mg PO TID [facility] Last Admin: 03/24/22 08:35 Dose: 100 mg Documented by: ROSALINE Clopidogrel Bisulfate (Clopidogrel Bisulfate 75 Mg Tablet) 75 mg PO DAILY [facility] Last Admin: 03/24/22 08:35 Dose: 75 mg Documented by: ROSALINE Cyanocobalamin (Cyanocobalamin (Vitamin B-12) 1,000 Mcg Tablet) 1,000 mcg PO DAILY [facility] Last Admin: 03/24/22 08:35 Dose: 1,000 mcg Documented by: ROSALINE Dextrose (Dextrose 50 % 25 Gm/50 Ml Syringe) 25 gm IVPUSH Q15M PRN; Protocol PRN Reason: per Hypoglycemia Standing Ord. Docusate Sodium (Docusate Sodium 100 Mg Capsule) 100 mg PO DAILY PRN PRN Reason: Constipation Fluticasone/Vilanterol (Fluticasone/Vilanterol 100/25 Blst.W.Dev) 1 puff INHALE RDAILY [facility] Last Admin: 03/24/22 08:14 Dose: 1 puff Documented by: JESSICA Gabapentin (Gabapentin 300 Mg Capsule) 300 mg PO BEDTIME [facility] Last Admin: 03/23/22 20:15 Dose: 300 mg Documented by: JERRY Glucose (Glucose Gel 15 Gm Gel..Gram.) 15 gm PO Q15M PRN; Protocol PRN Reason: per Hypoglycemia Standing Ord. Guaifenesin (Guaifenesin La 600 Mg Tab.Er.12h) 600 mg PO BID [facility] Last Admin: 03/24/22 08:35 Dose: 600 mg Documented by: ROSALINE Guaifenesin/Codeine Phosphate (Guaifen/Codeine Sf 200/20/10ml 10 Ml Liquid) 5 ml PO Q6H [facility] Last Admin: 03/24/22 12:34 Dose: 5 ml Documented by: ROSALINE Heparin Sodium (Porcine) (Heparin Sodium,Porcine 5,000 Unit/Ml Vial) 5,000 unit SUBCUT Q12H [facility] Last Admin: 03/24/22 12:40 Dose: Not Given Documented by: ROSALINE Non-Admin Reason: Patient Refused Insulin Human Lispro (Insulin Lispro 100 Unit/Ml 3 Ml Vial) 0 unit SUBCUT QIDACHS [facility]; Protocol Last Admin: 03/24/22 12:33 Dose: 2 unit Documented by: ROSALINE Lisinopril (Lisinopril 10 Mg Tablet) 10 mg PO DAILY [facility]; Protocol Last Admin: 03/22/22 09:15 Dose: 10 mg Documented by: WINNIE Lorazepam (Lorazepam 0.5 Mg Tablet) 0.5 mg PO BEDTIME [facility] Last Admin: 03/23/22 20:15 Dose: 0.5 mg Documented by: JERRY Metformin HCl (Metformin Hcl 500 Mg Tablet) 500 mg PO BIDWM [facility] Last Admin: 03/24/22 08:35 Dose: 500 mg Documented by: ROSALINE Metoprolol Succinate (Metoprolol Succinate Er 50 Mg Tab.Er.24h) 50 mg PO DAILY [facility]; Protocol Last Admin: 03/24/22 08:35 Dose: 50 mg Documented by: ROSALINE Nitroglycerin (Nitroglycerin 0.4 Mg Tab.Subl) 0.4 mg SUBLINGUAL Q5M PRN PRN Reason: Chest Pain Omeprazole (Omeprazole 20 Mg Capsule.Dr) 20 mg PO BID@0630,1630 PRN PRN Reason: Acid Reflux Ondansetron HCl (Ondansetron Hcl 4 Mg/2 Ml Vial) 4 mg IVPUSH Q8H PRN PRN Reason: Nausea and Vomiting Pharmacy Consult (Consult Rx Perform Med Rec) 1 each MISCELLANE ONCE PRN PRN Reason: Consult order Pharmacy Consult (Consult Rx Vancomycin Dosing) 1 each MISCELLANE DAILY PRN PRN Reason: Consult order Sodium Chloride (0.9 % Sodium Chloride Flush 3 Ml Syringe) 3 ml IVFLUSH QSHIFT [facility] Last Admin: 03/24/22 08:35 Dose: 3 ml Documented by: ROSALINE Labs CBC & Chem 7: 03/24/22 07:15 03/24/22 07:15 Labs: Laboratory Results - last 24 hr 03/23/22 03/23/22 03/24/22 19:05 20:33 07:15 MCV 86.4 MCH 26.2 L MCHC 30.3 L RDW 15.5 Plt Count 182 MPV 10.0 Absolute Nucleated RBC 0.000 Nucleated RBC % (auto) 0.0 Anion Gap Estim Creat Clear Calc Estimated GFR POC Glucose 140 H Random Glucose Calcium Vancomycin Trough 13.9 03/24/22 03/24/22 03/24/22 07:15 07:32 11:30 MCV MCH MCHC RDW Plt Count MPV Absolute Nucleated RBC Nucleated RBC % (auto) Anion Gap 13 Estim Creat Clear Calc 97.2 Estimated GFR > 60 POC Glucose 120 H 170 H Random Glucose 127 H Calcium 7.9 L Vancomycin Trough 03/24/22 16:00 MCV MCH MCHC RDW Plt Count MPV Absolute Nucleated RBC Nucleated RBC % (auto) Anion Gap Estim Creat Clear Calc Estimated GFR POC Glucose 137 H Random Glucose Calcium Vancomycin Trough Assessment and Plan (1) Pneumonia: Status: Acute (2) Sepsis: Status: Acute Plan 76-year-old male with past medical history of COPD presents the hospital with complaints of shortness of breath found to have pneumonia as well as COPD exacerbation Sepsis PNA -clinically improving -transition to oral Abx ?COPD : seems stable continue nebs, no indication for steroid hyperglycemia new onset dm, A1c 8.7 Has poor insight into diabetes -continue metformin -needs nutritional education hx of cad: -? following with Cardiology, plan for possible CABG in March ?continue? Plavix, statin, metoprolol, lisinopril and nitroglycerin p.r.n. ?hypertension -? stable -? continue antihypertensives Morbid obesity:? Encouraged to lose weight, consider outpatient bariatric eval as per pcp. ?DVT prophylaxis: heparin s/c inpatient need : spneumonia - has been on IV Abx, will transition to oral med today and monitor response overnight, offer diabetes education and nutritional education again.. as had no good grasp, will be in along with him for education in the morning this will reduce readmission Quality Stroke Does the patient have a stroke diagnosis?: No VTE Prior VTE?: No VTE Risk Level:: Medical - moderate - high VTE Device Contraindication: Treatment Not Indicated VTE Drug Contraindication: N/A - Med Ordered
[2022-03-24] MEDS: Atorvastatin Calcium 40 MG TABLET PO (18:01)
[2022-03-24 20:15] LABS: Glucose, Whole Blood 166 mg/dL (60-115)
[2022-03-24] MEDS: LORazepam 0.5 MG TABLET PO (20:54)
[2022-03-24] MEDS: Gabapentin 300 MG CAPSULE PO (20:54)
[2022-03-24] MEDS: Acetaminophen 325 MG TABLET 650 MG PO (20:57)
[2022-03-24] MEDS: Heparin Sodium,Porcine 5,000 UNIT/ML VIAL 5000 UNIT SUBCUT (23:53)
[2022-03-25 04:00] VITALS: BP 118/53; PULSE 82; RESP 18; TEMP 36.8; O2SAT 92
[2022-03-25] MEDS: guaiFEN/Codeine SF 200/20/10ML 10 ML LIQUID 5 ML PO ×2 (05:36→12:26)
[2022-03-25 07:13] VITALS: BP 121/63; PULSE 79; RESP 18; TEMP 36.1; O2SAT 92
[2022-03-25 07:27] LABS: Glucose, Whole Blood 104 mg/dL (60-115)
[2022-03-25] MEDS: Fluticasone/Vilanterol 100/25 BLST.W.DEV 1 PUFF INHALE (07:45)
[2022-03-25] MEDS: Albuterol/Iprat 2.5/0.5MG 3 ML AMPUL.NEB INHALE ×2 (07:45→11:54)
[2022-03-25 07:46] VITALS: PULSE 79; RESP 20; O2SAT 92
[2022-03-25 07:48] LABS: Anion Gap 11 (12-20); Blood Urea Nitrogen 12 mg/dL (9-16); Calcium 8.3 mg/dL (8.4-10.2); Carbon Dioxide 32 mmol/L (22-29); Chloride 102 mmol/L (96-108); Creatinine Clr Calc Pharmacy 87.5; Estimated Glomerular Filt Rate > 60; Glucose Random 114 mg/dL (60-115); Potassium 4.3 mmol/L (3.3-5.1); Sodium 141 mmol/L (135-145)
[2022-03-25 07:59] LABS: Vancomycin Trough 7.3 mcg/mL (10.0-20.0)
[2022-03-25] MEDS: Cyanocobalamin (Vitamin B-12) 1,000 MCG TABLET 1000 MCG PO (08:31)
[2022-03-25] MEDS: Metoprolol Succinate ER 50 MG TAB.ER.24H PO (08:31)
[2022-03-25] MEDS: Clopidogrel Bisulfate 75 MG TABLET PO (08:31)
[2022-03-25] MEDS: metFORMIN HCl 500 MG TABLET PO (08:31)
[2022-03-25] MEDS: allopurinoL 100 MG TABLET PO (08:31)
[2022-03-25] MEDS: Aspirin Enteric Coated 81 MG TABLET.DR PO (08:32)
[2022-03-25] MEDS: 0.9 % Sodium Chloride Flush 3 ML SYRINGE IVFLUSH (08:32)
[2022-03-25] MEDS: amLODIPine Besylate 5 MG TABLET PO (08:32)
[2022-03-25] MEDS: guaiFENesin LA 600 MG TAB.ER.12H PO (08:32)
[2022-03-25] MEDS: Benzonatate 100 MG CAPSULE PO (08:32)
[2022-03-25 10:56] VITALS: BP 125/60; PULSE 81; RESP 18; TEMP 36.8; O2SAT 91
[2022-03-25 11:10] LABS: Glucose, Whole Blood 159 mg/dL (60-115)
--- NOTE | 2022-03-25 11:47 | MHC.CM.PN ---
pt to be dcd home will have diabetic teaching prior to dc
[2022-03-25 11:55] VITALS: PULSE 81; RESP 20; O2SAT 91
[2022-03-25] MEDS: Insulin Lispro 100 UNIT/ML 3 ML VIAL SUBCUT (12:25)
[2022-03-25] MEDS: Heparin Sodium,Porcine 5,000 UNIT/ML VIAL 5000 UNIT SUBCUT (12:26)
[2022-03-25] MEDS: Amoxicillin/Potassium Clav 875 MG TABLET PO (12:26)
--- NOTE | 2022-03-25 13:14 | MHC.CM.PN ---
agricultural extension educator gretta cortes from [facility] came to teach pt dm education referral placed for follow up with clinic for pt post dc
== END 2022-03-25 16:23 | disposition home or self-care (01) | DRG 871 ==
LOC: HO.ED 20:41 → HO.EDOVER 23:04 → HO.IMC 03-21 03:13
PROVIDERS: Emergency Medicine Emergency Medical Services; Internal Medicine; Physician Assistant; Admitting Provider Internal Medicine; Emergency Provider Emergency Medicine; PCP Internal Medicine; Visit Provider Internal Medicine
DX: A41.9 Sepsis, unspecified organism (principal); J18.9 Pneumonia, unspecified organism; N17.9 Acute kidney failure, unspecified; E87.2 Acidosis; J44.0 Chronic obstructive pulmonary disease with (acute) lower respiratory infection; E66.01 Morbid (severe) obesity due to excess calories; Z68.36 Body mass index [BMI] 36.0-36.9, adult; E11.65 Type 2 diabetes mellitus with hyperglycemia; I25.10 Atherosclerotic heart disease of native coronary artery without angina pectoris; Z20.822 Contact with and (suspected) exposure to COVID-19; Z87.442 Personal history of urinary calculi; Z79.51 Long term (current) use of inhaled steroids; Z79.82 Long term (current) use of aspirin; Z79.84 Long term (current) use of oral hypoglycemic drugs; Z79.02 Long term (current) use of antithrombotics/antiplatelets; Z79.899 Other long term (current) drug therapy
CPT/HCPCS: 36415; 71045; 80048; 80202; 81003; 82009; 82947; 83036; 83605; 83880; 84484; 85025; 85027; 85379; 87040; 87502; 87635; 93005; 94640; 96365; 96367; 96375; 99284; 99285; J1956; J2543; J3370

== ENCOUNTER → 2022-04-02 14:43 | Outpatient (BNVA) | payer MEDICARE, SELFPAY ==
[2022-02-03 06:38] VITALS: BP 124/60; BMI 37.7
== END ==
PROVIDERS: PCP Internal Medicine; Referring Provider Internal Medicine; Visit Provider Internal Medicine Cardiovascular Disease
DX: I25.10 Atherosclerotic heart disease of native coronary artery without angina pectoris (principal); I10 Essential (primary) hypertension
CPT/HCPCS: 99212

== ENCOUNTER 2022-04-08 09:44 | Outpatient (REF) | payer MEDICARE, SELFPAY ==
[2022-02-03 06:38] VITALS: BP 124/60; BMI 37.7
[2022-04-08 13:10] LABS: Alanine Aminotransferase 21 U/L (0-40); Albumin Level 3.4 g/dL (3.5-5.0); Alkaline Phosphatase 92 U/L (39-117); Anion Gap 13 (12-20); Aspartate Amino Transferase 19 U/L (5-37); Bilirubin Total 0.3 mg/dL (0.0-1.0); Blood Urea Nitrogen 21 mg/dL (9-16); Calcium 9.3 mg/dL (8.4-10.2); Carbon Dioxide 25 mmol/L (22-29); Chloride 109 mmol/L (96-108); Estimated Glomerular Filt Rate > 60; Glucose Random 118 mg/dL (60-115); Potassium 4.9 mmol/L (3.3-5.1); Sodium 142 mmol/L (135-145); Total Protein 6.7 g/dL (6.5-8.0)
[2022-04-08 13:48] LABS: Creatinine Urine 93.89 mg/dL; Microalbum/Creatinine Ratio Ur 10.6 ug/mg cr
[2022-04-08 14:03] LABS: Estimated Average Glucose 183 mg/dL
== END 2022-04-08 09:45 | disposition home or self-care (01) ==
LOC: HO.LAB 09:44
PROVIDERS: Absent Provider Internal Medicine; PCP Internal Medicine; Visit Provider Hospitalist
DX: I12.9 Hypertensive chronic kidney disease with stage 1 through stage 4 chronic kidney disease, or unspecified chronic kidney disease (principal); N18.9 Chronic kidney disease, unspecified; E11.22 Type 2 diabetes mellitus with diabetic chronic kidney disease; J44.9 Chronic obstructive pulmonary disease, unspecified; I25.10 Atherosclerotic heart disease of native coronary artery without angina pectoris
CPT/HCPCS: 36415; 80053; 82043; 83036; 99212

== ENCOUNTER → 2022-04-10 13:45 | Outpatient (BNVA) | payer MEDICARE, SELFPAY ==
[2022-02-03 06:38] VITALS: BP 124/60; BMI 37.7
== END ==
PROVIDERS: PCP Internal Medicine; Visit Provider Registered Nurse Diabetes Educator
DX: E11.9 Type 2 diabetes mellitus without complications (principal)
CPT/HCPCS: 99211

== ENCOUNTER 2022-05-05 07:49 | Outpatient (REF) | payer MEDICARE, SELFPAY ==
[2021-11-21 13:14] VITALS: BP 130/62; BP 170/68
[2022-02-03 06:38] VITALS: BP 124/60; BMI 37.7
--- NOTE | 2022-05-05 13:25 | PFT_ITS ---
Forced vital capacity 76%, FEV1 70%. FEV1/FVC ratio is 66. EXT15-55 59% and MVV 71%. Post bronchodilator therapy, there is no significant change. Total lung capacity 90% and residual volume 115%. Diffusion capacity 47% and DL/VA is 60% CONCLUSION: Moderately severe obstructive airway disorder. No significant response to bronchodilator therapy. Decreased diffusion capacity is probably due to pulmonary emphysema/obstructive lung disease. Clinical correlation is recommended. Compared to the study on 07/29/2020, the forced vital capacity, FEV1 are slightly decreased. There is not much change in total lung capacity, residual volume, and also diffusion capacity is slightly decreased. Camron Abbott MD MSB/MODL / [id number]
== END 2022-05-05 07:50 | disposition home or self-care (01) ==
LOC: HO.RESP 07:49
PROVIDERS: PCP Internal Medicine; Visit Provider Hospitalist
DX: J44.9 Chronic obstructive pulmonary disease, unspecified (principal); Z79.899 Other long term (current) drug therapy
CPT/HCPCS: 94060; 94727; 94729

== ENCOUNTER → 2022-05-12 14:47 | Outpatient (BNVA) | payer MEDICARE, SELFPAY ==
[2022-02-03 06:38] VITALS: BP 124/60; BMI 37.7
== END ==
PROVIDERS: PCP Internal Medicine; Visit Provider Registered Nurse Diabetes Educator
DX: E11.9 Type 2 diabetes mellitus without complications (principal)
CPT/HCPCS: 99211

== ENCOUNTER 2022-07-13 08:29 | Inpatient (IN) | payer MEDICARE, SELFPAY ==
[2022-02-03 06:38] VITALS: BP 124/60; BMI 37.7
[2022-07-13] VITALS (11 sets, daily range): BP systolic 78–121; BP diastolic 36–60; PULSE 80–114; RESP 14–24; TEMP 36.8–38.6; O2SAT 89–96; BMI 34.4
--- NOTE | ~2022-07-13 | XR_ITS ---
EXAMINATION: XR CHEST CLINICAL INFORMATION: Cough. COMPARISON: Chest radiograph 03/20/2022. TECHNIQUE: AP view of the chest was obtained. FINDINGS: Stable appearance of the cardiomediastinal silhouette. EKG wires overlie the chest. Upper abdominal surgical clips are again noted. New multifocal airspace opacities in the right lung. Previously described airspace opacities in the left lung are improved. No pleural effusion. No pneumothorax. No acute osseous abnormalities. XR/XR chest 1V IMPRESSION: New multifocal airspace opacities in the right lung, concerning for infection. Recommend a follow-up imaging after treatment to ensure resolution.
--- NOTE | 2022-07-13 09:00 | ECG_ITS ---
Test Reason : dyspnea Blood Pressure : / mmHG Vent. Rate : 109 BPM Atrial Rate : 109 BPM P-R Int : 170 ms QRS Dur : 134 ms QT Int : 354 ms P-R-T Axes : 028 -52 034 degrees QTc Int : 476 ms Sinus tachycardia Left axis deviation Right bundle branch block Abnormal ECG When compared with ECG of 20-MAR-2022 12:23, Premature atrial complexes are no longer Present Referred By: Lynda Abdullahi Electronically Signed By:ARLEEN SANDERS
--- NOTE | 2022-07-13 09:25 | ED_ITS ---
HPI - SOB/Dyspnea General Chief Complaint: Dyspnea Stated Complaint: fever/flu like symptoms Time Seen by Provider: 07/13/22 08:59 Source: patient Mode of arrival: ambulatory Limitations: no limitations History of Present Illness HPI Narrative: 77-year-old male came in for evaluation of upper respiratory symptoms. This is a 77-year-old male with history of COPD and former smoker use supplemental oxygen 3 L at home when needed, patient came in for 1 day of fever and chills with runny nose and congestion, with dry coughing, subjective fever and chills this morning. patient was exposed to his son who tested positive for COVID. Patient received 3 shots for COVID vaccination. Related Data Home Medications Medication Instructions Recorded Confirmed allopurinol 100 mg tablet 100 mg PO DAILY 09/16/20 04/02/22 lisinopril 10 mg tablet 10 mg PO DAILY 09/16/20 04/02/22 nitroglycerin 0.4 mg sublingual 0.4 mg sublingual Q5M PRN Chest 07/16/21 04/02/22 tablet Pain omeprazole 20 mg capsule,delayed 20 mg PO BID@0630,1630 PRN Acid 07/16/21 04/02/22 release Reflux amlodipine 5 mg tablet 5 mg PO DAILY 02/20/22 04/02/22 aspirin 81 mg tablet,delayed 81 mg PO DAILY 03/20/22 04/02/22 release cyanocobalamin (vitamin B-12) 1,000 mcg PO DAILY 03/20/22 04/02/22 1,000 mcg tablet lorazepam 0.5 mg tablet 1 tab PO BEDTIME 03/20/22 04/02/22 Previous Rx's Medication Instructions Recorded gabapentin 300 mg capsule 300 mg PO BEDTIME #30 caps 03/30/21 (Neurontin) albuterol sulfate 90 mcg/actuation 1 inh inhalation QID PRN 02/23/22 aerosol inhaler bronchospasm #8.5 grams fluticasone 113 mcg-salmeterol 14 1 inh inhalation BID copd #1 ea 02/23/22 mcg/actuation breath activated powdr (AirDuo RespiClick) ipratropium 0.5 mg-albuterol 3 mg 3 ml inhalation BID 30 days #180 mL 02/24/22 (2.5 mg base)/3 mL nebulization soln clopidogrel 75 mg tablet 75 mg PO DAILY #30 tabs 03/10/22 alcohol swabs 1 pad topical QIDACHS #100 ea 03/24/22 amoxicillin 875 mg-potassium 875 mg PO Q12H #7 tabs 03/24/22 clavulanate 125 mg tablet blood sugar diagnostic (FreeStyle #100 ea 03/24/22 Lite Strips) blood-glucose meter (FreeStyle #1 ea 03/24/22 Lite Meter kit) lancets 28 gauge (FreeStyle #100 ea 03/24/22 Lancets) metformin 500 mg tablet 500 mg PO BIDWM #60 tabs 03/24/22 codeine 10 mg-guaifenesin 100 mg/5 5 ml PO Q6H cough #120 mL 03/25/22 mL oral liquid metoprolol succinate 50 mg 50 mg PO DAILY #90 tabs 04/02/22 tablet,extended release 24 hr (Toprol XL) atorvastatin 40 mg tablet 40 mg PO DAILY@1700 #90 tabs 04/15/22 Allergies Allergy/AdvReac Type Severity Reaction Status Date / Time Aspirin Allergy Unknown rectal Uncoded 04/08/22 09:54 bleeding Review of Systems Review of Systems: All other systems are reviewed and are negative Constitutional: Reports as per HPI and Reports no additional constitutional complaints Eyes: Reports as per HPI and Reports no additional eye complaints Reports system reviewed and no additional complaints, except as documented Cardiovascular: Reports as per HPI and Reports no additional cardiovascular complaints Respiratory: Reports as per HPI and Reports no additional respiratory complaints Gastrointestinal: Reports as per HPI and Reports no additional gastrointestinal complaints Genitourinary: Reports no additional female genitourinary complaints Musculoskeletal: Reports no additional musculoskeletal complaints Skin/Breast: Reports system reviewed and no additional complaints, except as docu Psychiatric: Reports no additional psychiatric complaints Endocrine: Reports no additional endocrine complaints Hematologic/Lymphatic: Reports no additional hematologic/lymphatic complaints Allergic/Immunologic: Reports no additional allergic/immunologic complaints Reports system reviewed and no additional complaints, except as documented and Reports Abnormal speech present [facility] Past Medical History Medical History CAD (coronary artery disease) Chronic stable angina Hospital-acquired pneumonia HTN (hypertension) Hyperlipidemia Migrated colon stent Nephrolithiasis Obesity MAYA (obstructive sleep apnea) Pneumonia Prostate cancer Right bundle branch block (RBBB) on electrocardiogram (ECG) Surgical History History of basal cell carcinoma (BCC) excision History of carpal tunnel release History of eye surgery Hx laparoscopic cholecystectomy Hx of cardiac cath Hx of hernia repair Hx of spinal surgery Stented coronary artery Family History Family History Father CVD (cardiovascular disease) Mother CVD (cardiovascular disease) Brother CVD (cardiovascular disease) Social History Social History Household Members: Spouse Housing: House Do you presently have visiting nurse or other home services: No Alcohol intake: never Patient Tobacco Use Status: Never used Tobacco Tobacco use type: Cigarette Use of substances other than those prescribed or required for medical reasons: No Advance Directives: Yes Advance Directives on File: Yes Advance Directives Date on File: 07/17/21 service: No Current occupational status: retired Physical Exam Vital Signs: Vital Signs: Last Vital Signs Temp 98.5 F 07/13/22 11:27 Pulse 86 07/13/22 15:15 Resp 14 07/13/22 15:15 BP 101/57 L 07/13/22 15:15 Pulse Ox 95 07/13/22 15:15 O2 Del Method 07/13/22 15:15 O2 Flow Rate 3 07/13/22 15:15 BMI result Body Mass Index 34.4 Vital signs have been reviewed as appeared to be correct. Blood pressure normal. Heart rate elevated. Respiration rate normal. Temperature elevated. Oxygen saturation normal. Appearance: Alert. Oriented X3. No acute distress. Head: Normal external exam. Normocephalic. Atraumatic. No Briceño signs noted. No raccoon eyes noted Eyes: PERRLA. EOMI. Conjunctiva and sclera normal. Eyelids normal. ENT: TM's Normal. Pharynx normal. Uvula midline. Moist mucous membranes. No trismus noted. No drooling noted. No muffled voice noted. Neck: Normal inspection. Neck supple. FROM. No adenopathy. Thyroid Normal. No meningeal signs. No neck mass noted. CVS: Normal heart rate and rhythm. Heart sound normal. No murmurs noted. Pulses normal throughout. Respiratory: No respiratory distress. Painless inspiration. Breath sounds normal. Bilateral expiratory wheezing with decreased air entry, prolonged expiratory phase.. Chest nontender. No accessory muscle usage noted or decreased air movement noted. Abdomen: Soft and nontender. Bowel sounds normal in all 4 quadrants. No distention noted. No organomegaly noted. No visible injury noted. Back: No CVA tenderness. Full range of motion noted. Skin: Skin warm and dry. Normal skin color. Normal skin turgor. No rashes/lesions/lacerations noted. Extremities: No lower extremity edema. Extremities exhibit normal range of motion. Extremities nontender. Neuro: Oriented X 3. Cranial nerve exam: II-XII are grossly intact No motor deficit. No sensory deficit. Reflexes normal. Course Course Course Narrative: 77-year-old male history of COPD came in meeting criteria for sepsis found to have a pneumonia. Patient received 2100 cc of normal saline 30 cc/kg normal saline for ideal body weight, also received ceftriaxone and Zithromax, b ronchodilators, magnesium, Solu-Medrol. Reevaluation(s) Reevaluation #1: Patient has pneumonia, patient met criteria for for septic shock with hypotension, patient received 30 cc/kg ideal body weight and IV antibiotic. Time: 11:30 Reevaluation #2: FOCUSED EXAM: After received 2100 cc of normal saline blood pressure is 101/57, overall patient feels better sustaining blood pressure to 101/57. Time: 15:30 MDM - SOB/Dyspnea Lab Data Result diagrams: 07/13/22 09:37 07/13/22 09:37 Labs: Lab Results 07/13/22 07/13/22 07/13/22 Range/Units 09:37 09:37 09:37 WBC 11.4 H (4.8-10.8) X10*3/uL RBC 4.70 (4.60-5.80) X10*6/uL Hgb 12.2 L (14.0-18.0) g/dl Hct 39.2 L (42.0-52.0) % MCV 83.4 (80.0-98.0) fL MCH 26.0 L (27.0-33.0) pg MCHC 31.1 (31.0-36.0) g/dl RDW 15.1 (11.0-16.0) % Plt Count 204 (160-400) X10*3/uL MPV 10.4 (9.4-12.4) fL Immature Gran % (Auto) 0.3 (0.0-0.4) % Neut % (Auto) 82.3 H (45-73) % Lymph % (Auto) 6.9 L (20-40) % [place] % (Auto) 9.1 (2-11) % Eos % (Auto) 1.0 (0-4) % Baso % (Auto) 0.4 (0-2) % Lymph # (Auto) 0.8 L (1.2-4.9) X10*3/uL [place] # (Auto) 1.0 (0.1-1.2) X10*3/uL Eos # (Auto) 0.1 (0.0-0.4) X10*3/uL Baso # (Auto) 0.1 (0.0-0.2) X10*3/uL Abs Immat Gran (auto) 0.04 H (0.00-0.03) X10*3/uL Absolute Neuts (auto) 9.4 H (2.0-8.3) x10*3/uL Absolute Nucleated RBC 0.000 (0.0-0.012) X10*3/uL Nucleated RBC % (auto) 0.0 (0.0-0.2) /100WBC Sodium 138 (135-145) mmol/L Potassium 4.8 (3.3-5.1) mmol/L Chloride 105 (96-108) mmol/L Carbon Dioxide 24 (22-29) mmol/L Anion Gap 14 (12-20) BUN 33 H D (9-16) mg/dL Creatinine 1.25 (0.5-1.4) mg/dL Estim Creat Clear Calc 60.1 Estimated GFR 56 POC Glucose (60-115) mg/dL Random Glucose 132 H (60-115) mg/dL Lactic Acid (0.5-2.0) mmol/L Calcium 8.4 D (8.4-10.2) mg/dL Troponin I High Sens 18.3 D (<3.5-35.0) ng/L B-Natriuretic Peptide 30 (<100) pg/mL Influenza Type A (PCR) (Negative) Influenza Type B (PCR) (Negative) RSV RNA Qual (PCR) (Negative) SARS-CoV-2 RNA (RT-PCR) (Negative) 07/13/22 07/13/22 07/13/22 Range/Units 09:37 09:37 11:36 WBC (4.8-10.8) X10*3/uL RBC (4.60-5.80) X10*6/uL Hgb (14.0-18.0) g/dl Hct (42.0-52.0) % MCV (80.0-98.0) fL MCH (27.0-33.0) pg MCHC (31.0-36.0) g/dl RDW (11.0-16.0) % Plt Count (160-400) X10*3/uL MPV (9.4-12.4) fL Immature Gran % (Auto) (0.0-0.4) % Neut % (Auto) (45-73) % Lymph % (Auto) (20-40) % [place] % (Auto) (2-11) % Eos % (Auto) (0-4) % Baso % (Auto) (0-2) % Lymph # (Auto) (1.2-4.9) X10*3/uL [place] # (Auto) (0.1-1.2) X10*3/uL Eos # (Auto) (0.0-0.4) X10*3/uL Baso # (Auto) (0.0-0.2) X10*3/uL Abs Immat Gran (auto) (0.00-0.03) X10*3/uL Absolute Neuts (auto) (2.0-8.3) x10*3/uL Absolute Nucleated RBC (0.0-0.012) X10*3/uL Nucleated RBC % (auto) (0.0-0.2) /100WBC Sodium (135-145) mmol/L Potassium (3.3-5.1) mmol/L Chloride (96-108) mmol/L Carbon Dioxide (22-29) mmol/L Anion Gap (12-20) BUN (9-16) mg/dL Creatinine (0.5-1.4) mg/dL Estim Creat Clear Calc Estimated GFR POC Glucose 83 (60-115) mg/dL Random Glucose (60-115) mg/dL Lactic Acid 1.8 (0.5-2.0) mmol/L Calcium (8.4-10.2) mg/dL Troponin I High Sens (<3.5-35.0) ng/L B-Natriuretic Peptide (<100) pg/mL Influenza Type A (PCR) NEGATIVE (Negative) Influenza Type B (PCR) NEGATIVE (Negative) RSV RNA Qual (PCR) NEGATIVE (Negative) SARS-CoV-2 RNA (RT-PCR) NEGATIVE (Negative) Critical Care Time Critical Care Time Critical Care Time: Yes Total Critical Care Time: 60 Attestation: I spent 60 minutes providing critical care service to the patient, this including time spent at the bedside to evaluate the patient, reassess the patient, monitoring vital signs, review labs, and radiographic studies, counseling the patient/family, discussing the case with consultants, disposition the patient. Discharge Plan Discharge Clinical Impression: Pneumonia, Sepsis, COPD (chronic obstructive pulmonary disease) Patient Disposition: Admitted As Inpatient
[2022-07-13 09:43] LABS: MANUAL DIFF FLAG NO
[2022-07-13 09:47] LABS: Basophils Absolute Auto 0.1 X10*3/uL (0.0-0.2); Basophils Percent Auto 0.4 % (0-2); Eosinophils Absolute Auto 0.1 X10*3/uL (0.0-0.4); Hematocrit 39.2 % (42.0-52.0); Hemoglobin 12.2 g/dl (14.0-18.0); Imm Gran Abs Auto 0.04 X10*3/uL (0.00-0.03); Imm Gran Pct Auto 0.3 % (0.0-0.4); Lymphocytes Absolute Auto 0.8 X10*3/uL (1.2-4.9); Lymphocytes Percent Auto 6.9 % (20-40); Mean Corpuscular HGB Conc 31.1 g/dl (31.0-36.0); Mean Corpuscular Volume 83.4 fL (80.0-98.0); Mean Platelet Volume 10.4 fL (9.4-12.4); Monocytes Percent Auto 9.1 % (2-11); Neutrophils Absolute Auto 9.4 x10*3/uL (2.0-8.3); Neutrophils Percent Auto 82.3 % (45-73); Platelet Count 204 X10*3/uL (160-400); Red Cell Distribution Width 15.1 % (11.0-16.0); White Blood Count 11.4 X10*3/uL (4.8-10.8)
[2022-07-13 09:55] LABS: Lactic Acid 1.8 mmol/L (0.5-2.0)
[2022-07-13 09:59] LABS: Anion Gap 14 (12-20); Blood Urea Nitrogen 33 mg/dL (9-16); Calcium 8.4 mg/dL (8.4-10.2); Carbon Dioxide 24 mmol/L (22-29); Chloride 105 mmol/L (96-108); Creatinine Clr Calc Pharmacy 60.1; Estimated Glomerular Filt Rate 56; Glucose Random 132 mg/dL (60-115); Potassium 4.8 mmol/L (3.3-5.1); Sodium 138 mmol/L (135-145)
[2022-07-13 10:07] LABS: B Type Natriuretic Peptide 30 pg/mL (<100); Troponin-I High Sensitivity 18.3 ng/L (<3.5-35.0)
[2022-07-13] MEDS: Acetaminophen 325 MG TABLET 650 MG PO (10:18)
[2022-07-13 10:47] LABS: Influenza A PCR NEGATIVE (Negative); Influenza B PCR NEGATIVE (Negative); Resp Syncy Virus RNA Qual PCR NEGATIVE (Negative); SARS COV2 PCR INHOUSE NEGATIVE (Negative)
[2022-07-13] MEDS: 0.9 % Sodium Chloride 1,000 ML 999 ML IV (11:05)
[2022-07-13 11:43] LABS: Glucose, Whole Blood 83 mg/dL (60-115)
[2022-07-13] MEDS: cefTRIAXone sodium 1 GM in 0.9 % Sodium Chloride 50 ML IV (12:10)
[2022-07-13] MEDS: Albuterol/Iprat 2.5/0.5MG 3 ML AMPUL.NEB INHALE ×2 (12:48→21:10)
[2022-07-13] MEDS: 0.9 % Sodium Chloride 2,190 ML 2190 ML IV (13:32)
[2022-07-13] MEDS: methylPREDNISolone Sod Succ 125 MG/2 ML VIAL IVPUSH (14:47)
[2022-07-13] MEDS: Azithromycin 500 MG in 0.9 % Sodium Chloride 250 ML 125 MG IV (14:48)
[2022-07-13] MEDS: Magnesium Sulfate/H2O 2 GM/50 ML PIGGYBACK IV (15:15)
--- NOTE | 2022-07-13 15:19 | PM.IMHP ---
History of Present Illness Date of Service: 07/13/22 Attending physician on admission: Ema Pollard Chief Complaint: headache/chills 77-year-old gentleman with past medical history significant for coronary artery disease status post stent placement at [facility] in February of 2022, former smoker, history of diabetes type 2, gout former smoker on 3 L of home oxygen as needed last use was 2 months ago presented to [facility] with symptoms of headache that started yesterday and this morning patient woke up feeling cold, dizzy and clammy associated with cough productive of yellowish phlegm he denies associated shortness of breath, no sick contacts, no recent history of travel denies nausea vomiting diarrhea in the emergency room chest x-ray showed multifocal right-sided pneumonia, oxygen 89% on room air COVID-19 test negative, initial blood pressure was 121/51 noted to have drop in blood pressure to 78/43 treated with IV fluids blood pressure improved to 101/57 at present, patient is now being admitted to [facility] with a diagnosis of sepsis related to multifocal pneumonia. 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 no headache no dizziness CVS no chest pain, no palpitation, no shortness of breath GI no nausea, no vomiting, no diarrhea no urinary urgency, no frequency musculoskeletal no pain skin no rash Yes all other systems are reviewed and are negative [facility] Medical History CAD (coronary artery disease) Chronic stable angina Hospital-acquired pneumonia HTN (hypertension) Hyperlipidemia Migrated colon stent Nephrolithiasis Obesity MAYA (obstructive sleep apnea) Pneumonia Prostate cancer Right bundle branch block (RBBB) on electrocardiogram (ECG) Family History Father CVD (cardiovascular disease) Mother CVD (cardiovascular disease) Brother CVD (cardiovascular disease) Surgical History History of basal cell carcinoma (BCC) excision History of carpal tunnel release History of eye surgery Hx laparoscopic cholecystectomy Hx of cardiac cath Hx of hernia repair Hx of spinal surgery Stented coronary artery Social History Household Members: Spouse Housing: House Do you presently have visiting nurse or other home services: No Alcohol intake: never Patient Tobacco Use Status: Never used Tobacco Tobacco use type: Cigarette Use of substances other than those prescribed or required for medical reasons: No Advance Directives: Yes Advance Directives on File: Yes Advance Directives Date on File: 07/17/21 service: No Current occupational status: retired Meds Allergies Allergy/AdvReac Type Severity Reaction Status Date / Time Aspirin Allergy Unknown rectal Uncoded 04/08/22 09:54 bleeding Active Medications: Current Medications Acetaminophen (Acetaminophen 325 Mg Tablet) 650 mg PO Q6H PRN PRN Reason: Pain, Mild (Pain Scale 1-3) Melatonin (Melatonin 3 Mg Tablet) 6 mg PO BEDTIME PRN PRN Reason: Insomnia Ondansetron HCl (Ondansetron Hcl 4 Mg/2 Ml Vial) 4 mg IVPUSH Q8H PRN PRN Reason: Nausea and Vomiting Pharmacy Consult (Consult Rx Perform Med Rec) 1 each MISCELLANE ONCE PRN PRN Reason: Consult order Sodium Chloride (0.9 % Sodium Chloride Flush 3 Ml Syringe) 3 ml IVFLUSH [facility] Medications Medication Instructions Recorded Confirmed Last Taken Type allopurinol 100 mg tablet 100 mg PO DAILY 09/16/20 07/13/22 07/13/22 History lisinopril 10 mg tablet 10 mg PO DAILY 09/16/20 07/13/22 07/13/22 History nitroglycerin 0.4 mg sublingual 0.4 mg sublingual Q5M PRN Chest 07/16/21 07/13/22 02/20/22 History tablet Pain amlodipine 5 mg tablet 5 mg PO DAILY 02/20/22 07/13/22 07/13/22 History aspirin 81 mg tablet,delayed 81 mg PO DAILY 03/20/22 07/13/22 07/13/22 History release lorazepam 0.5 mg tablet 1 tab PO BEDTIME PRN Insomnia 03/20/22 07/13/22 03/19/22 History gabapentin 300 mg capsule 300 mg PO QID PRN Pain 07/13/22 07/13/22 07/13/22 History (Neurontin) Physical Exam Vital Signs and Narrative: Vital Signs: Last Vital Signs Temp 98.5 F 07/13/22 11:27 Pulse 86 07/13/22 15:15 Resp 14 07/13/22 15:15 BP 101/57 L 07/13/22 15:15 Pulse Ox 95 07/13/22 15:15 O2 Del Method 07/13/22 15:15 O2 Flow Rate 3 07/13/22 15:15 BMI result Body Mass Index 34.4 Const: Other: General awake alert x3, in no acute distress, ill-appearing. HEENT PERRLA,EOMI Neck supple no JVD. CVS regular rate rhythm, Respiratory lungs clear to auscultation, no respiratory distress, no wheeze, no rhonchi no use of accessory muscles. Gastrointestinal abdomen soft, nontender, bowel sounds audible, no no guarding , no rigidity. Extremities no edema. Neuro nonfocal ,speech clear. Skin no rash musculoskeletal no deformity psych appropriate affect Results Labs CBC and Chem 7: 07/13/22 09:37 07/13/22 09:37 Labs: Laboratory Results - last 24 hr 07/13/22 07/13/22 07/13/22 09:37 09:37 09:37 MCV 83.4 MCH 26.0 L MCHC 31.1 RDW 15.1 Plt Count 204 MPV 10.4 Immature Gran % (Auto) 0.3 Neut % (Auto) 82.3 H Lymph % (Auto) 6.9 L [place] % (Auto) 9.1 Eos % (Auto) 1.0 Baso % (Auto) 0.4 Lymph # (Auto) 0.8 L [place] # (Auto) 1.0 Eos # (Auto) 0.1 Baso # (Auto) 0.1 Abs Immat Gran (auto) 0.04 H Absolute Neuts (auto) 9.4 H Absolute Nucleated RBC 0.000 Nucleated RBC % (auto) 0.0 Anion Gap 14 Estim Creat Clear Calc 60.1 Estimated GFR 56 POC Glucose Random Glucose 132 H Lactic Acid Calcium 8.4 D B-Natriuretic Peptide 30 Influenza Type A (PCR) Influenza Type B (PCR) RSV RNA Qual (PCR) SARS-CoV-2 RNA (RT-PCR) 07/13/22 07/13/22 07/13/22 09:37 09:37 11:36 MCV MCH MCHC RDW Plt Count MPV Immature Gran % (Auto) Neut % (Auto) Lymph % (Auto) [place] % (Auto) Eos % (Auto) Baso % (Auto) Lymph # (Auto) [place] # (Auto) Eos # (Auto) Baso # (Auto) Abs Immat Gran (auto) Absolute Neuts (auto) Absolute Nucleated RBC Nucleated RBC % (auto) Anion Gap Estim Creat Clear Calc Estimated GFR POC Glucose 83 Random Glucose Lactic Acid 1.8 Calcium B-Natriuretic Peptide Influenza Type A (PCR) NEGATIVE Influenza Type B (PCR) NEGATIVE RSV RNA Qual (PCR) NEGATIVE SARS-CoV-2 RNA (RT-PCR) NEGATIVE Imaging Radiologist's Impressions: Impressions Chest X-Ray 07/13/22 09:25 IMPRESSION: New multifocal airspace opacities in the right lung, concerning for infection. Recommend a follow-up imaging after treatment to ensure resolution. Assessment and Plan (1) Pneumonia: Status: Acute (2) Sepsis: Status: Acute (3) COPD (chronic obstructive pulmonary disease): Status: Acute (4) Diabetes: Status: Acute Plan 77-year-old gentleman with past medical history significant for coronary artery disease status post 2 stents in February of 2022, hypertension, hyperlipidemia, obstructive sleep apnea, history of prostate cancer status post prostatectomy presented to [facility] with acute onset of chills , dizziness, associated with productive cough of yellow phlegm workup in the ER showed right-sided multifocal pneumonia and sepsis patient is now being admitted to [facility] with continued monitoring and treatment. Sepsis due to pneumonia patient meets sepsis criteria due to tachypnea, tachycardia related to pneumonia, normal lactic acid will admit to telemetry unit on IV antibiotics, cough medications follow blood cultures history of COPD no acute exacerbation continue home inhalers avoid steroids hypotension likely related to multiple antihypertensive medications will hold amlodipine, lisinopril and metoprolol for now, once BP stabilizes will resume metoprolol and gradually introduce other antihypertensive treat with IV fluids acute on chronic hypoxic respiratory failure patient on 3 L of home oxygen on as needed basis, will place on 2 L of oxygen since noted to have finger oximetry 89% on room air likely due to pneumonia no evidence heart failure coronary artery disease status post stent placement continue dual antiplatelet agent and statins resume beta-blockers once blood pressure allows diabetes mellitus type 2 follow point of care blood sugar and add insulin sliding scale hold metformin DVT prophylaxis with heparin subQ patient will need minimum 2 night hospital stay for management and treatment for multi focal pneumonia requiring IV antibiotics and iv fluid for hypotension Quality Stroke Does the patient have a stroke diagnosis?: No VTE Prior VTE?: No VTE Risk Level:: Medical - moderate - high VTE Device Contraindication: N/A - Device Ordered VTE Drug Contraindication: Treatment Not Indicated
--- NOTE | 2022-07-13 16:27 | PHA.MEDREC ---
Pharmacy Consult ? Medication Reconciliation Pharmacy has completed the medication reconciliation. Spoke to and utilized list
[2022-07-13] MEDS: 0.9 % Sodium Chloride Flush 3 ML SYRINGE IVFLUSH (16:56)
[2022-07-13] MEDS: 0.9 % Sodium Chloride 1,000 ML 100 ML IVCONT (16:56)
[2022-07-13 18:15] LABS: Glucose, Whole Blood 137 mg/dL (60-115)
[2022-07-13] MEDS: LORazepam 1 MG TABLET PO (20:35)
[2022-07-13] MEDS: guaiFENesin DM 100/10/5 ML 5 ML SYRUP 10 ML PO (20:35)
[2022-07-14] VITALS (8 sets, daily range): BP systolic 110–145; BP diastolic 53–68; PULSE 85–100; RESP 18–22; TEMP 36.6–37.3; O2SAT 92–96; BMI 34.4
[2022-07-14 07:14] LABS: Glucose, Whole Blood 177 mg/dL (60-115)
[2022-07-14] MEDS: Albuterol/Iprat 2.5/0.5MG 3 ML AMPUL.NEB INHALE ×2 (08:00→18:51)
--- NOTE | 2022-07-14 09:38 | MHC.CM.PN ---
Patient is unavailable and Contact/HCP/S.O./Sneha is not reachable at either listed #. From chart review only: Patient lives in a house with his Significant OtherAlice of over 30 years and uses a cane to assist with mobility. Home/no services appears to be the goal/plan and CM has initiated and will follow for dc planning.Patient has received Covid/Pfizer vax X3 and his PCP is Dr. Jaxon Coffman.
[2022-07-14] MEDS: 0.9 % Sodium Chloride Flush 3 ML SYRINGE IVFLUSH ×3 (10:22→21:47)
[2022-07-14] MEDS: Clopidogrel Bisulfate 75 MG TABLET PO (10:23)
[2022-07-14] MEDS: allopurinoL 100 MG TABLET PO (10:23)
[2022-07-14] MEDS: Aspirin Enteric Coated 81 MG TABLET.DR PO (10:23)
[2022-07-14] MEDS: Metoprolol Succinate ER 50 MG TAB.ER.24H PO (10:23)
--- NOTE | 2022-07-14 12:35 | HO.PM.IMPN ---
Subjective Subjective Date of Service: 07/14/22 Interval History: Feeling better, no shortness of breath, persistent cough, feels updraft helped in breathing this morning, refuse insulin wants to be placed back on metformin, no acute overnight events Review of Systems Review of Systems: Yes all other systems are reviewed and are negative Physical Exam Vital Signs: Vital Signs: Last Vital Signs Temp 97.9 F 07/14/22 01:27 Pulse 100 07/14/22 08:16 Resp 21 H 07/14/22 08:16 BP 114/53 L 07/14/22 08:16 Pulse Ox 95 07/14/22 08:16 O2 Del Method 07/14/22 08:16 O2 Flow Rate 3 07/13/22 17:23 BMI result Body Mass Index 34.4 Const: Other: General? awake alert x3, in no acute distress, ill-appearing.? Neck supple no JVD. CVS? regular rate rhythm, Respiratory lungs clear to auscultation, no respiratory distress, no wheeze, no rhonchi no use of accessory muscles. Gastrointestinal abdomen soft, nontender, bowel sounds audible, no guarding , no rigidity. Extremities no edema. Neuro nonfocal ,speech clear. Skin no rash musculoskeletal no deformity psych appropriate affect Objective Data Active Medications Acetaminophen (Acetaminophen 325 Mg Tablet) 650 mg PO Q6H PRN PRN Reason: Pain, Mild (Pain Scale 1-3) Albuterol Sulfate (Albuterol Sulfate 90 Mcg 8 Gm Inhaler) 1 puff INHALE RQ6H PRN PRN Reason: sob Albuterol/Ipratropium (Albuterol/Iprat 2.5/0.5mg 3 Ml Ampul.Neb) 3 ml INHALE BID [facility] Last Admin: 07/14/22 08:00 Dose: 3 ml Documented By: KISHA Allopurinol (Allopurinol 100 Mg Tablet) 100 mg PO DAILY [facility] Last Admin: 07/14/22 10:23 Dose: 100 mg Documented By: BLANCA Aspirin (Aspirin Enteric Coated 81 Mg Tablet.) 81 mg PO DAILY [facility] Last Admin: 07/14/22 10:23 Dose: 81 mg Documented By: BLANCA Atorvastatin Calcium (Atorvastatin Calcium 40 Mg Tablet) 40 mg PO DAILY@1700 SALMA Clopidogrel Bisulfate (Clopidogrel Bisulfate 75 Mg Tablet) 75 mg PO DAILY [facility] Last Admin: 07/14/22 10:23 Dose: 75 mg Documented By: BLANCA Guaifenesin/Dextromethorphan (Guaifenesin Dm 100/10/5 Ml 5 Ml Syrup) 10 ml PO TID [facility] Last Admin: 07/14/22 10:22 Dose: Not Given Documented By: BLANCA Non-Admin Reason: Patient Refused Ceftriaxone Sodium 1 gm/ (Sodium Chloride) 50 mls @ 100 mls/hr IV Q24H [facility] Azithromycin 500 mg/ Sodium (Chloride) 250 mls @ 125 mls/hr IV Q24H [facility] Lorazepam (Lorazepam 1 Mg Tablet) 1 mg PO BEDTIME [facility] Last Admin: 07/13/22 20:35 Dose: 1 mg Documented By: ANISHA Lorazepam (Lorazepam 0.5 Mg Tablet) 0.5 mg PO BEDTIME PRN PRN Reason: Insomnia Melatonin (Melatonin 3 Mg Tablet) 6 mg PO BEDTIME PRN PRN Reason: Insomnia Metformin HCl (Metformin Hcl 500 Mg Tablet) 500 mg PO BIDWM [facility] Metoprolol Succinate (Metoprolol Succinate Er 50 Mg Tab.Er.24h) 50 mg PO DAILY [facility]; Protocol Last Admin: 07/14/22 10:23 Dose: 50 mg Documented By: BLANCA Nitroglycerin (Nitroglycerin 0.4 Mg Tab.Subl) 0.4 mg SUBLINGUAL Q5M PRN PRN Reason: Chest Pain Ondansetron HCl (Ondansetron Hcl 4 Mg/2 Ml Vial) 4 mg IVPUSH Q8H PRN PRN Reason: Nausea and Vomiting Pharmacy Consult (Consult Rx Perform Med Rec) 1 each MISCELLANE ONCE PRN PRN Reason: Consult order Sodium Chloride (0.9 % Sodium Chloride Flush 3 Ml Syringe) 3 ml IVFLUSH QSHIFT [facility] Last Admin: 07/14/22 10:22 Dose: 3 ml Documented By: BLANCA Labs CBC & Chem 7: 07/13/22 09:37 07/13/22 09:37 Labs: Laboratory Results - last 24 hr 07/13/22 07/14/22 18:12 07:09 POC Glucose 137 H 177 H Assessment and Plan (1) Pneumonia: Status: Acute (2) Sepsis: Status: Acute (3) COPD (chronic obstructive pulmonary disease): Status: Acute (4) Diabetes: Status: Acute (5) Pneumonia: Status: Acute Plan 77-year-old gentleman with past medical history significant for coronary artery disease status post 2 stents in February of 2022, hypertension, hyperlipidemia, obstructive sleep apnea, history of prostate cancer status post prostatectomy presented to [facility] with acute onset of chills , dizziness, associated with productive cough of yellow phlegm workup in the ER showed right-sided multifocal pneumonia and sepsis patient is now being admitted to [facility] with continued monitoring and treatment. ?Sepsis due to pneumonia ?Persistent mild tachypnea, otherwise feeling better, continue IV ceftriaxone and azithromycin day 2 follow blood culture ?history of COPD no acute exacerbation continue home inhalers avoid steroids ?hypotension? resolved, status post IV fluid, blood pressure remains soft this morning will continue to hold amlodipine and, lisinopril Resume metoprolol ?acute on chronic hypoxic respiratory failure patient on 3 L of home oxygen on as needed basis, Wean oxygen ?coronary artery disease status post stent placement continue dual antiplatelet agent and statins resume beta-blockers ?diabetes mellitus type 2 follow point of care blood sugar and resume metformin ?DVT prophylaxis with heparin subQ ?patient will need continued inpatient hospitalization for multi focal pneumonia requiring IV antibiotics and follow up on hypotension Quality Stroke Does the patient have a stroke diagnosis?: No VTE Prior VTE?: No VTE Risk Level:: Medical - moderate - high VTE Device Contraindication: N/A - Device Ordered VTE Drug Contraindication: Treatment Not Indicated
[2022-07-14] MEDS: cefTRIAXone sodium 1 GM in 0.9 % Sodium Chloride 50 ML IV (12:55)
[2022-07-14] MEDS: guaiFENesin DM 100/10/5 ML 5 ML SYRUP 10 ML PO ×2 (15:52→21:46)
[2022-07-14] MEDS: Azithromycin 500 MG in 0.9 % Sodium Chloride 250 ML 125 MG IV (15:52)
[2022-07-14] MEDS: metFORMIN HCl 500 MG TABLET PO (17:30)
[2022-07-14] MEDS: Atorvastatin Calcium 40 MG TABLET PO (17:30)
[2022-07-14 18:12] LABS: Glucose, Whole Blood 192 mg/dL (60-115)
[2022-07-14 20:14] LABS: Glucose, Whole Blood 226 mg/dL (60-115)
[2022-07-14] MEDS: LORazepam 1 MG TABLET PO (21:46)
[2022-07-15 02:57] VITALS: BP 113/55; PULSE 82; RESP 16; TEMP 36.6; O2SAT 92
[2022-07-15 06:39] LABS: Estimated Average Glucose 126 mg/dL
[2022-07-15 06:40] LABS: Hematocrit 35.8 % (42.0-52.0); Hemoglobin 11.3 g/dl (14.0-18.0); Mean Corpuscular HGB Conc 31.6 g/dl (31.0-36.0); Mean Corpuscular Hemoglobin 26.2 pg (27.0-33.0); Mean Corpuscular Volume 83.1 fL (80.0-98.0); Mean Platelet Volume 10.7 fL (9.4-12.4); Platelet Count 211 X10*3/uL (160-400); Red Blood Count 4.31 X10*6/uL (4.60-5.80); Red Cell Distribution Width 15.5 % (11.0-16.0); White Blood Count 15.6 X10*3/uL (4.8-10.8)
[2022-07-15 07:13] LABS: Vitamin B12 209 pg/mL (200-900)
[2022-07-15 07:20] LABS: Glucose, Whole Blood 125 mg/dL (60-115)
[2022-07-15 07:22] VITALS: BP 166/77; PULSE 82; RESP 20; TEMP 36.6; O2SAT 92
[2022-07-15] MEDS: Albuterol/Iprat 2.5/0.5MG 3 ML AMPUL.NEB INHALE (08:04)
[2022-07-15 08:07] VITALS: PULSE 82; RESP 16; O2SAT 92
[2022-07-15] MEDS: Azithromycin 500 MG TABLET PO (09:09)
[2022-07-15] MEDS: metFORMIN HCl 500 MG TABLET PO (09:10)
[2022-07-15] MEDS: Aspirin Enteric Coated 81 MG TABLET.DR PO (09:10)
[2022-07-15] MEDS: Clopidogrel Bisulfate 75 MG TABLET PO (09:10)
[2022-07-15] MEDS: allopurinoL 100 MG TABLET PO (09:10)
[2022-07-15] MEDS: amLODIPine Besylate 5 MG TABLET PO (09:10)
[2022-07-15] MEDS: Metoprolol Succinate ER 50 MG TAB.ER.24H PO (09:10)
[2022-07-15] MEDS: 0.9 % Sodium Chloride Flush 3 ML SYRINGE IVFLUSH (09:11)
[2022-07-15] MEDS: guaiFENesin DM 100/10/5 ML 5 ML SYRUP 10 ML PO (09:13)
--- NOTE | 2022-07-15 10:15 | PC.NURSE ---
Pt alert and oriented tx4. Denies pain or discomfort. Persistent productive cough, given Guafensin with good effect. LS clear upper lobes and dim lower bases. Denies SOB.
--- NOTE | 2022-07-15 10:19 | PM.DS ---
DS: Providers Provider Date of Service: 07/15/22 Date of admission: 07/13/22 15:16 Primary care physician: Jaxon Coffman MD DS: Diagnosis Discharge Diagnosis (1) Pneumonia: Status: Acute (2) Sepsis: Status: Acute (3) COPD (chronic obstructive pulmonary disease): Status: Acute (4) Diabetes: Status: Acute (5) Pneumonia: Status: Acute DS: Summary Hospital Course Hospital Course: Date of Service: 07/13/22 Attending physician on admission: Ema Pollard Chief Complaint:? headache/chills ?77-year-old gentleman with past medical history significant for coronary artery disease status post stent placement at [facility] in February of 2022, former smoker, history of diabetes type 2, gout former smoker on 3 L of home oxygen as needed last use was 2 months ago presented to [facility] with symptoms of headache that started yesterday and this morning patient woke up feeling cold, dizzy and clammy associated with cough productive of yellowish phlegm he denies associated shortness of breath, no sick contacts, no recent history of travel denies nausea vomiting diarrhea in the emergency room chest x-ray showed multifocal right-sided pneumonia, oxygen 89% on room air COVID-19 test negative, initial blood pressure was 121/51 noted to have drop in blood pressure to 78/43 treated with IV fluids blood pressure improved to 101/57 at present, patient is now being admitted to [facility] with a diagnosis of sepsis related to multifocal pneumonia. Hospital course 77-year-old gentleman with past medical history significant for coronary artery disease status post 2 stents in February of 2022, hypertension, hyperlipidemia, obstructive sleep apnea, history of prostate cancer status post prostatectomy presented to [facility] with acute onset of chills , dizziness, associated with productive cough of yellow phlegm workup in the ER showed right-sided multifocal pneumonia and sepsis patient is now being admitted to [facility] with continued monitoring and treatment. ?Sepsis due to pneumonia all symptoms sepsis resolved patient treated with IV ceftriaxone and azithromycin, blood cultures are negative, patient is feeling significantly better oxygenation has improved therefore being discharged home to finish a total 7 day course of antibiotic he has been recommended to use cough medication as needed, bump in WBC count is likely due to use of steroids. May resume cardiac rehab next week ? ?history of COPD no acute exacerbation continue home inhalers ?hypotension?on admission noted to be hypotensive treated with IV fluids blood pressure improved being discharged on all home medication. ?acute on chronic hypoxic respiratory failure on admission noted to be hypoxic therefore treated with oxygen via nasal cannula now oxygenation improved to 92% patient can resume home oxygen on as needed basis ?coronary artery disease status post stent placement continue dual antiplatelet agent ,statins and beta-blockers. ?diabetes mellitus type 2 follow point of care blood sugar and metformin hemoglobin A1c 6 Time Spent with Patient Time attestation: Total time spent providing and/or coordinating discharge services: Discharge coordination time: Greater than 30 minutes Quality: Safe Use of Opioids Does Pt have an Active Cancer Diagnosis on the Problem List?: No Quality: Stroke Does the patient have a stroke diagnosis?: No Physical Exam Vital Signs: Vital Signs: Last Vital Signs Temp 98 F 07/15/22 07:22 Pulse 82 07/15/22 08:07 Resp 16 07/15/22 08:07 BP 166/77 H 07/15/22 07:22 Pulse Ox 92 07/15/22 07:22 O2 Del Method 07/15/22 07:22 O2 Flow Rate 3 07/13/22 17:23 BMI result Body Mass Index 34.4 Const: Other: General? awake alert x3, in no acute distress.? Neck supple no JVD. CVS? regular rate rhythm, Respiratory lungs clear to auscultation, no respiratory distress, no wheeze, no rhonchi no use of accessory muscles. Gastrointestinal abdomen soft, nontender, bowel sounds audible, no guarding , no rigidity. Extremities no edema. Neuro nonfocal ,speech clear. Skin no rash musculoskeletal no deformity psych appropriate affect DS: Data Data Completed and Pending Labs on day of discharge: Laboratory Results - last 24 hr 07/14/22 07/14/22 07/15/22 18:05 20:08 06:04 WBC RBC Hgb Hct MCV MCH MCHC RDW Plt Count MPV Absolute Nucleated RBC Nucleated RBC % (auto) POC Glucose 192 H 226 H Estimat Average Glucose Hemoglobin A1c % Vitamin B12 209 07/15/22 07/15/22 07/15/22 06:05 06:05 07:14 WBC 15.6 H RBC 4.31 L Hgb 11.3 L Hct 35.8 L MCV 83.1 MCH 26.2 L MCHC 31.6 RDW 15.5 Plt Count 211 MPV 10.7 Absolute Nucleated RBC 0.000 Nucleated RBC % (auto) 0.0 POC Glucose 125 H Estimat Average Glucose 126 Hemoglobin A1c % 6.0 Vitamin B12 Preliminary micro results at discharge 07/13/22 11:55 Blood Culture - Preliminary Blood - Venous No growth after 24 hours. 07/13/22 11:25 Blood Culture - Preliminary Blood - Venous No growth after 24 hours. Discharge Plan Discharge Patient Disposition: Home, Self-Care Discharge Diagnosis: Sepsis due to Pneumonia Hypotension Acute on chronic hypoxic respiratory failure Referrals: Jaxon Coffman MD [Primary Care Provider] - 1 Week Discharge Medications: New azithromycin 500 mg Tablet 500 mg PO Q24H Qty: 2 0RF dextromethorphan-guaifenesin 10-100 mg/5 mL Syrup 10 ml PO TID Qty: 237 0RF Rx Instructions: Take cough medication for 1-2 days cefuroxime axetil 500 mg Tablet 500 mg PO Q12H Qty: 10 0RF Continued clopidogrel 75 mg tablet 75 mg PO DAILY Qty: 30 6RF atorvastatin 40 mg tablet 40 mg PO DAILY@1700 Qty: 90 3RF nitroglycerin 0.4 mg Tablet, Sublingual 0.4 mg SUBLINGUAL Q5M PRN (Reason: Chest Pain) lorazepam 0.5 mg tablet 1 tab PO BEDTIME PRN (Reason: Insomnia) aspirin 81 mg Tablet,Delayed Release (Dr/Ec) 81 mg PO DAILY metformin 500 mg Tablet 500 mg PO BIDWM Qty: 60 0RF (DME) FreeStyle Lite Strips Strip Qty: 100 0RF Rx Instructions: Test four times a day or as directed. (DME) blood-glucose meter [FreeStyle Lite Meter] Kit Qty: 1 0RF Rx Instructions: As Directed (DME) lancets [FreeStyle Lancets] 28 gauge Misc Qty: 100 0RF Rx Instructions: Test four times a day or as directed. amlodipine 5 mg tablet 5 mg PO DAILY gabapentin [Neurontin] 300 mg capsule 300 mg PO QID PRN (Reason: Pain) allopurinol 100 mg tablet 100 mg PO DAILY lisinopril 10 mg tablet 10 mg PO DAILY metoprolol succinate [Toprol XL] 50 mg tablet extended release 24 hr 50 mg PO DAILY Qty: 90 2RF Discharge Orders: Discharge Order (Routine); Ordered 07/15/22 Ordered By: Ema Pollard Diet: Diabetic diet Activity on Discharge: As tolerated Stand Alone Forms: Patient Portal Discharge page Care Plan Goals: Take antibiotics Ceftin and azithromycin as prescribed, cough medication as needed Return to cardiac rehab next week Use home oxygen as previously recommended Health Concerns: Diabetes well controlled hemoglobin A1c 6 B12 209 Plan of Treatment: Outpatient follow-up with primary care physician in 1 week Assessment: As per discharge summary
[2022-07-15 11:04] VITALS: BP 158/79; PULSE 89; RESP 20; TEMP 36.6; O2SAT 94
--- NOTE | 2022-07-15 11:24 | MHC.CM.PN ---
Patient has been medically cleared for dc to home today, self care.Last IMM addressed yesterday.
== END 2022-07-15 12:17 | disposition home or self-care (01) | DRG 193 ==
LOC: HO.ED 15:31 → HO.EDOVER 07-14 03:25 → HO.IMC 07-14 17:06
PROVIDERS: Admitting Provider Hospitalist; Emergency Provider Emergency Medicine; PCP Internal Medicine; Visit Provider Hospitalist
DX: J18.9 Pneumonia, unspecified organism (principal); J96.21 Acute and chronic respiratory failure with hypoxia; J44.0 Chronic obstructive pulmonary disease with (acute) lower respiratory infection; I95.9 Hypotension, unspecified; I25.10 Atherosclerotic heart disease of native coronary artery without angina pectoris; E78.5 Hyperlipidemia, unspecified; M10.9 Gout, unspecified; G47.33 Obstructive sleep apnea (adult) (pediatric); Z20.822 Contact with and (suspected) exposure to COVID-19; Z99.81 Dependence on supplemental oxygen; Z95.5 Presence of coronary angioplasty implant and graft; Z87.891 Personal history of nicotine dependence; Z88.6 Allergy status to analgesic agent; Z79.02 Long term (current) use of antithrombotics/antiplatelets; Z79.82 Long term (current) use of aspirin; Z79.84 Long term (current) use of oral hypoglycemic drugs; Z79.899 Other long term (current) drug therapy
CPT/HCPCS: 0241U; 36415; 71045; 80048; 82607; 82947; 83036; 83605; 83880; 84484; 85025; 85027; 87040; 93005; 94640; 99285; J0456; J0696; J2930; J3475

== ENCOUNTER 2022-08-10 10:35 | Outpatient (REF) | payer MEDICARE, SELFPAY ==
[2022-02-03 06:38] VITALS: BP 124/60; BMI 37.7
[2022-08-10 10:49] LABS: MANUAL DIFF FLAG NO
[2022-08-10 12:20] LABS: Basophils Absolute Auto 0.1 X10*3/uL (0.0-0.2); Basophils Percent Auto 0.8 % (0-2); Eosinophils Absolute Auto 0.5 X10*3/uL (0.0-0.4); Eosinophils Percent Auto 5.8 % (0-4); Hematocrit 39.6 % (42.0-52.0); Hemoglobin 12.2 g/dl (14.0-18.0); Imm Gran Abs Auto 0.02 X10*3/uL (0.00-0.03); Imm Gran Pct Auto 0.2 % (0.0-0.4); Lymphocytes Absolute Auto 2.3 X10*3/uL (1.2-4.9); Lymphocytes Percent Auto 27.8 % (20-40); Mean Corpuscular HGB Conc 30.8 g/dl (31.0-36.0); Mean Corpuscular Hemoglobin 26.3 pg (27.0-33.0); Mean Corpuscular Volume 85.5 fL (80.0-98.0); Mean Platelet Volume 10.7 fL (9.4-12.4); Monocytes Absolute Auto 0.7 X10*3/uL (0.1-1.2); Neutrophils Absolute Auto 4.8 x10*3/uL (2.0-8.3); Neutrophils Percent Auto 57.4 % (45-73); Platelet Count 249 X10*3/uL (160-400); Red Blood Count 4.63 X10*6/uL (4.60-5.80); Red Cell Distribution Width 15.6 % (11.0-16.0); White Blood Count 8.3 X10*3/uL (4.8-10.8)
[2022-08-10 12:52] LABS: Anion Gap 17 (12-20); Blood Urea Nitrogen 24 mg/dL (9-16); Calcium 8.9 mg/dL (8.4-10.2); Carbon Dioxide 24 mmol/L (22-29); Chloride 108 mmol/L (96-108); Estimated Glomerular Filt Rate > 60; Glucose Random 146 mg/dL (60-115); Potassium 4.6 mmol/L (3.3-5.1); Sodium 144 mmol/L (135-145)
[2022-08-10 13:06] LABS: Erythrocyte Sedimentation Rate 36 MM/HR (0-15)
[2022-08-12 14:41] LABS: IgA 183 mg/dL (70-320); IgG 812 mg/dL (600-1540); IgM 45 mg/dL (50-300)
== END 2022-08-10 10:36 | disposition home or self-care (01) ==
LOC: HO.XRAY 10:35
PROVIDERS: PCP Internal Medicine; Visit Provider Hospitalist
DX: J44.1 Chronic obstructive pulmonary disease with (acute) exacerbation (principal); J18.9 Pneumonia, unspecified organism; J45.40 Moderate persistent asthma, uncomplicated; I25.10 Atherosclerotic heart disease of native coronary artery without angina pectoris
CPT/HCPCS: 36415; 80048; 82784; 82785; 85025; 85652; 86003; 99212

== ENCOUNTER 2022-08-25 09:52 | Outpatient (REF) | payer MEDICARE, SELFPAY ==
[2022-02-03 06:38] VITALS: BP 124/60; BMI 37.7
--- NOTE | ~2022-08-25 | CT_ITS ---
EXAMINATION: CT CHEST WITHOUT CONTRAST CLINICAL INFORMATION: Pneumonia on chest x-ray. COMPARISON: CTA chest 11/08/2019. TECHNIQUE: Multidetector volumetric CT imaging of the chest was done. Axial MIP volume rendering provided. Sagittal and coronal reformatted images were obtained. This CT examination was performed using dose optimization techniques as appropriate, variously including the following: *Automated exposure control *Adjustment of mA and/or kV according to patient size (this includes techniques or standardized protocols for targeted exams where dose is matched to indication/reason for exam; i.e. extremities or head) *Use of iterative reconstruction technique DLP: 239 mGy-cm. FINDINGS: SERVICES CLERK: The lungs are well expanded. LUNGS: The lungs are well expanded with an ill-defined 1 cm density right upper lobe anterior segment, question residual changes of airspace disease. Pulmonary nodule is not excluded. Mild atelectatic changes are seen in the right middle lobe adjacent to the major fissure. Punctate 1-2 mm calcified and noncalcified nodules seen in the right upper lobe and right lower lobe. MEDIASTINUM: The heart size and the great vessels are normal caliber. Mild atherosclerotic changes of aortic arch are noted. There are no abnormal size mediastinal or hilar lymph nodes seen. Thyroid lobes are symmetric and normal. There is transverse narrowing of the trachea and the superior mediastinum without any adjacent mass or mass effect. It is unchanged since 2019 Question tracheomalacia. The bronchi are widely patent. There is no pericardial fluid collection. CORONARY ARTERY CALCIFICATION: Moderate coronary artery calcifications are present. PLEURA: There is no pleural thickening or effusion seen. No pleural calcification either. AXILLA: No abnormal axillary lymph nodes. The chest wall is unremarkable. UPPER ABDOMEN: Visualized liver, spleen, pancreas and bilateral adrenal glands are unremarkable. The gallbladder has been surgically removed. OSSEOUS STRUCTURES: No aggressive lytic or sclerotic process seen. CT/CT chest wo IV con IMPRESSION: There is an ill-defined 1 cm density right upper lobe likely residual changes from previous infiltrate. A small pulmonary nodule is not excluded. Mild atelectatic changes seen in right middle lobe. There are punctate 1-2 mm calcified and noncalcified nodules in right upper and right lower lobe. Moderate coronary artery calcifications. Fleischner guidelines were followed.
== END 2022-08-25 09:53 | disposition home or self-care (01) ==
LOC: HO.CT 09:52
PROVIDERS: PCP Internal Medicine; Visit Provider Hospitalist
DX: J18.9 Pneumonia, unspecified organism (principal)
CPT/HCPCS: 71250

== ENCOUNTER → 2022-09-09 10:04 | Outpatient (BNVA) | payer MEDICARE, SELFPAY ==
[2022-02-03 06:38] VITALS: BP 124/60; BMI 37.7
== END ==
PROVIDERS: PCP Internal Medicine; Visit Provider Hospitalist
DX: J44.1 Chronic obstructive pulmonary disease with (acute) exacerbation (principal); J18.9 Pneumonia, unspecified organism; R91.1 Solitary pulmonary nodule; I25.10 Atherosclerotic heart disease of native coronary artery without angina pectoris
CPT/HCPCS: 99212

== ENCOUNTER 2022-09-17 06:24 | Day surgery (SDC) | payer MEDICARE, SELFPAY ==
[2022-02-03 06:38] VITALS: BP 124/60; BMI 37.7
--- NOTE | 2022-09-16 10:57 | P.CONAN_ITS ---
HPI - Anesthesia Eval Consult details Narrative: 77yo M for Bronchoscopy Fiberoptic Stable/ doing well at 09/08/22 [facility] Cardiac visit CAD s/p stents x 2 02/2022. Remains on plavix/asa for 1 year. [facility] admit 06/2022 with sepsis pna. No longer on continuous O2 PMFSH Active Problems Active Problems: All Active Problems (Updated 09/09/22 @ 20:58 by Thomas Steele MD) Pulmonary nodule (Acute) Pneumonia (Acute) Pneumonia (Acute) Acute respiratory failure with hypoxia (Acute) Community acquired pneumonia (Acute) COPD (chronic obstructive pulmonary disease) (Acute) SOB (shortness of breath) on exertion (Acute) Bacteremia (Acute) Sepsis (Acute) Nephrolithiasis (Acute) Pyelonephritis (Acute) Chronic stable angina (Acute) CAD (coronary artery disease) (Acute) HTN (hypertension) (Acute) Hyperlipidemia (Acute) Obesity (Acute) Past Medical History Medical History (Updated 09/17/22 @ 06:45 by Rosangela Martinez, RN) CAD (coronary artery disease) Chronic stable angina COPD (chronic obstructive pulmonary disease) Diabetes Hospital-acquired pneumonia HTN (hypertension) Hyperlipidemia Migrated colon stent Nephrolithiasis Obesity MAYA (obstructive sleep apnea) Pneumonia Prostate cancer Pulmonary nodule Right bundle branch block (RBBB) on electrocardiogram (ECG) Family History Family History Father CVD (cardiovascular disease) Mother CVD (cardiovascular disease) Brother CVD (cardiovascular disease) Surgical History Surgical History (Updated 09/17/22 @ 06:51 by Rosangela Martinez, RN) History of basal cell carcinoma (BCC) excision History of carpal tunnel release History of eye surgery Hx laparoscopic cholecystectomy Hx of arthroscopy of knee Hx of cardiac cath Hx of hernia repair Hx of lithotripsy Hx of spinal surgery Stented coronary artery Social History Social History Household Members: Spouse Housing: House Do you presently have visiting nurse or other home services: No Alcohol intake: never Patient Tobacco Use Status: Former Tobacco user Quit Date: 15 yrs ago Tobacco use type: Cigarette Use of substances other than those prescribed or required for medical reasons: No Are you DNR?: No Advance Directives: Yes Advance Directives on File: Yes Advance Directives Date on File: 07/17/21 service: No Current occupational status: retired Meds Allergies Allergy/AdvReac Type Severity Reaction Status Date / Time No Known Allergies Allergy Verified 09/17/22 06:51 Home Medications Medication Instructions Recorded Confirmed Last Taken Type allopurinol 100 mg tablet 100 mg PO DAILY 09/16/20 09/17/22 07/13/22 History lisinopril 10 mg tablet 10 mg PO DAILY 09/16/20 09/17/22 07/13/22 History nitroglycerin 0.4 mg sublingual 0.4 mg sublingual Q5M PRN Chest 07/16/21 09/17/22 02/20/22 History tablet Pain amlodipine 5 mg tablet 5 mg PO DAILY 02/20/22 09/17/22 07/13/22 History aspirin 81 mg tablet,delayed 81 mg PO DAILY 03/20/22 09/17/22 09/17/22 05:00 History release lorazepam 0.5 mg tablet 1 tab PO BEDTIME PRN Insomnia 03/20/22 09/17/22 03/19/22 History gabapentin 300 mg capsule 300 mg PO QID PRN Pain 07/13/22 09/17/22 07/13/22 History (Neurontin) cyclobenzaprine 10 mg tablet 10 mg PO BID PRN Pain 08/10/22 09/17/22 Unknown History metformin 500 mg tablet 250 mg PO BIDWM 09/17/22 09/17/22 09/17/22 05:00 History Exam Exam Date and Time: September 16, 2022 1057 Pertinent Lab Results Pertinent Lab Results: Laboratory Tests 08/10/22 08/10/22 10:46 10:46 WBC 8.3 Hgb 12.2 L Hct 39.6 L Plt Count 249 Sodium 144 Potassium 4.6 Chloride 108 Carbon Dioxide 24 BUN 24 H Creatinine 1.15 Narrative Narrative: EKG Vent. Rate : 109 BPM ? ? Atrial Rate : 109 BPM ?? P-R Int : 170 ms? QRS Dur : 134 ms ? ? QT Int : 354 ms ? ? ? P-R-T Axes : 028 -52 034 degrees ?? QTc Int : 476 ms ? Sinus tachycardia Left axis deviation Right bundle branch block Abnormal ECG When compared with ECG of 20-MAR-2022 12:23, Premature atrial complexes are no longer Present Assessment and Plan Assessment Anesthesia Assessment: Chart Reviewed
[2022-09-17] VITALS (10 sets, daily range): BP systolic 94–117; BP diastolic 43–64; PULSE 72–82; RESP 11–20; TEMP 36.1–37.2; O2SAT 92–98; BMI 34.5
[2022-09-17] MEDS: Lactated Ringers 1,000 ML 100 ML IVCONT (07:21)
[2022-09-17 07:31] LABS: Glucose, Whole Blood 115 mg/dL (60-115)
--- NOTE | 2022-09-17 07:34 | HO.ANESPROP2 ---
[facility] Active Problems Active Problems: All Active Problems (Updated 09/17/22 @ 06:45 by Rosangela Martinez, RN) Pyelonephritis (Acute) Sepsis (Acute) Bacteremia (Acute) SOB (shortness of breath) on exertion (Acute) Community acquired pneumonia (Acute) COPD (chronic obstructive pulmonary disease) (Acute) Acute respiratory failure with hypoxia (Acute) Pneumonia (Acute) Pulmonary nodule (Acute) Pneumonia (Acute) Nephrolithiasis (Acute) Chronic stable angina (Acute) CAD (coronary artery disease) (Acute) HTN (hypertension) (Acute) Hyperlipidemia (Acute) Obesity (Acute) Past Medical History Medical History (Updated 09/17/22 @ 06:45 by Rosangela Martinez, RN) CAD (coronary artery disease) Chronic stable angina COPD (chronic obstructive pulmonary disease) Diabetes Hospital-acquired pneumonia HTN (hypertension) Hyperlipidemia Migrated colon stent Nephrolithiasis Obesity MAYA (obstructive sleep apnea) Pneumonia Prostate cancer Pulmonary nodule Right bundle branch block (RBBB) on electrocardiogram (ECG) Family History Family History Father CVD (cardiovascular disease) Mother CVD (cardiovascular disease) Brother CVD (cardiovascular disease) Family history of problems with anesthesia: No Surgical History Surgical History (Updated 09/17/22 @ 06:51 by Rosangela Martinez RN) History of basal cell carcinoma (BCC) excision History of carpal tunnel release History of eye surgery Hx laparoscopic cholecystectomy Hx of arthroscopy of knee Hx of cardiac cath Hx of hernia repair Hx of lithotripsy Hx of spinal surgery Stented coronary artery History of Problems with Anesthesia: No Social History Social History Household Members: Spouse Housing: House Do you presently have visiting nurse or other home services: No Alcohol intake: never Patient Tobacco Use Status: Former Tobacco user Quit Date: 15 yrs ago Tobacco use type: Cigarette Use of substances other than those prescribed or required for medical reasons: No Are you DNR?: No Advance Directives: Yes Advance Directives on File: Yes Advance Directives Date on File: 07/17/21 service: No Current occupational status: retired Meds Allergies Allergy/AdvReac Type Severity Reaction Status Date / Time No Known Allergies Allergy Verified 09/17/22 06:51 Active Medications: Current Medications Lactated Ringer's (Lr) 1,000 mls @ 100 mls/hr IVCONT .Q10H SALMA Last Admin: 09/17/22 07:21 Dose: 100 mls/hr Home Medications Medication Instructions Recorded Confirmed Last Taken Type allopurinol 100 mg tablet 100 mg PO DAILY 09/16/20 09/17/22 07/13/22 History lisinopril 10 mg tablet 10 mg PO DAILY 09/16/20 09/17/22 07/13/22 History nitroglycerin 0.4 mg sublingual 0.4 mg sublingual Q5M PRN Chest 07/16/21 09/17/22 02/20/22 History tablet Pain amlodipine 5 mg tablet 5 mg PO DAILY 02/20/22 09/17/22 07/13/22 History aspirin 81 mg tablet,delayed 81 mg PO DAILY 03/20/22 09/17/22 09/17/22 05:00 History release lorazepam 0.5 mg tablet 1 tab PO BEDTIME PRN Insomnia 03/20/22 09/17/22 03/19/22 History gabapentin 300 mg capsule 300 mg PO QID PRN Pain 07/13/22 09/17/22 07/13/22 History (Neurontin) cyclobenzaprine 10 mg tablet 10 mg PO BID PRN Pain 08/10/22 09/17/22 Unknown History metformin 500 mg tablet 250 mg PO BIDWM 09/17/22 09/17/22 09/17/22 05:00 History Exam Exam Date and Time: September 17, 2022 0734 Height,Weight and Vital Signs: Height 5 ft 10 in Weight 109.316 kg Last Vital Signs Temp 97.0 F 09/17/22 07:07 Pulse 82 09/17/22 07:07 Resp 17 09/17/22 07:07 BP 117/63 09/17/22 07:07 Pulse Ox 96 09/17/22 07:07 O2 Del Method 09/17/22 07:07 Pertinent Lab Results Pertinent Lab Results: Laboratory Tests 09/17/22 07:18 POC Glucose 115 Airway Mallampati Class: III TM Dist: >3cm Neck ROM: Full Denture: Upper Assessment and Plan Assessment Anesthesia Assessment: Anesthesia Plan Discussed and Chart Reviewed Final Anesthetic Review Family History of Problems with Anesthesia: No History of Problems with Anesthesia: No NPO: Yes ASA Class: III Final Preanesthetic Review: No Changes in Pt Med Stat, Meds/Allgs Chart Reviewed, Consent Obtained/Reviewed and Anes Risks/Benef Reviewed Patient Risk: Intermediate Procedure Risk: Low Anesthetic Plan Anesthetic Plan: GA Disposition: Standard PACU
--- NOTE | 2022-09-17 07:58 | MHC.SHP ---
Pre-Procedural Eval Section A Date of Service: 09/17/22 The patient is an INPATIENT: No Changes since office visit: No Cold of Flu in the past 2 weeks, No New Medical Problems, No Changes in Medication and No Patient answered all questions The History & Physical has been completed within 30 days and I have reviewed it.: Yes Section B Chief Complaint: Pneumonia, unspecified organism Allergies: Allergies Allergy/AdvReac Type Severity Reaction Status Date / Time No Known Allergies Allergy Verified 09/17/22 06:51 Plan I have reviewed the history and physical and performed a pertinent physical examination on my patient. No changes have occurred unless specified.
--- NOTE | 2022-09-17 12:45 | PM.OP ---
Brief Operative Note Date of Service: 09/17/22 Pre-op diagnosis: pneumonia Post-op diagnosis: other (pneumonia, bronchomalecia, saber sheath trachea) Procedure: Bronchosocpy with brushings and washings Implants: Surgeon: Thomas Steele MD Anesthesia: GETA Was an Surface Lay Out Technician used for this Procedure?: No Estimated blood loss (mL): 0 Pathology: none sent Condition: stable Disposition: same day
--- NOTE | 2022-09-17 14:03 | OP_ITS ---
SURGEON: Thomas Steele MD PREOPERATIVE DIAGNOSIS: Pneumonia. POSTOPERATIVE DIAGNOSIS: Pneumonia, saber sheath trachea, bronchomalacia, and chronic bronchitis. PROCEDURE PERFORMED: Bronchoscopy with washings and brushings. ESTIMATED BLOOD LOSS: COMPLICATIONS: None. ANESTHESIA: General endotracheal anesthesia provided. ASSISTANTS: None. SPECIMENS: ASA CALCIFICATION: 3 INTERPRETATION: 1. Successful bilateral lung washings, both for cytology and microbiology. 2. Cytologic brushings from the right upper lobe and also the right middle lobe to cytology. DESCRIPTION OF PROCEDURE: After the patient is adequately sedated and intubated, a flexible digital bronchoscope was inserted over the ET tube to the level of the main santo. 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 The patient also had some thick mucus, mucoid in appearance, and the distal trachea and also central airways. The mucus was difficult to suction. After instilling lidocaine, the bronchoscope then was navigated to the entire tracheobronchial tree that was examined up to the subsegmental level. No evidence of any endobronchial lesions or masses. Narrow band imaging was done throughout the airways with no evidence of any neovascularization. The patient did have mucus plugging and some bronchomalacia noted. He had chronic changes to the airways consistent with chronic airway disease. The patient did have some increased secretions primarily from the right upper lobe anterior segment where he had most of the changes on his CT scan. The bronchoscope was navigated to the right upper lobe, where initially a cytologic brush was introduced into the anterior segment of the right upper lobe, and then it was also inserted in the right middle lobe as well. The specimen sent to cytology for further analysis. Bronchial washings were collected bilaterally cleaning out mucus plugs and the washings were sent for both cytology and microbiology. The patient did have some friable mucosa primarily in the anterior segment of the right upper lobe after the brushings. And reached good hemostasis with iced saline. The bronchoscope was then removed. The total endoscopic time approximately 12 minutes. The patient tolerated the procedure well. Vital signs were stable throughout the procedure. MD DORIS Treviño/DAMIÁN / [phone]
== END 2022-09-17 11:12 | disposition home or self-care (01) ==
PROVIDERS: PCP Internal Medicine; Visit Provider Hospitalist
PROC: 0BJ08ZZ Inspection of Tracheobronchial Tree, Via Natural or Artificial Opening Endoscopic (ICD-10-PCS; CPT 31622; principal; 2022-09-17 08:00)
DX: J18.9 Pneumonia, unspecified organism (principal); J98.09 Other diseases of bronchus, not elsewhere classified; J39.8 Other specified diseases of upper respiratory tract; R91.1 Solitary pulmonary nodule; J44.9 Chronic obstructive pulmonary disease, unspecified; I10 Essential (primary) hypertension; I25.10 Atherosclerotic heart disease of native coronary artery without angina pectoris; Z98.61 Coronary angioplasty status; I45.10 Unspecified right bundle-branch block; G47.33 Obstructive sleep apnea (adult) (pediatric); E11.9 Type 2 diabetes mellitus without complications; Z79.84 Long term (current) use of oral hypoglycemic drugs; Z79.82 Long term (current) use of aspirin; Z79.899 Other long term (current) drug therapy; Z87.891 Personal history of nicotine dependence
CPT/HCPCS: 31623; 82947; 87070; 87116; 87205; 88112; J0171; J1100; J2250; J2405; J3010

== ENCOUNTER 2022-10-03 07:21 | Outpatient (REF) | payer MEDICARE, SELFPAY ==
[2022-02-03 06:38] VITALS: BP 124/60; BMI 37.7
[2022-10-03 08:03] LABS: Estimated Average Glucose 131 mg/dL; Hemoglobin A1C 152.4633 umol/L; Hemoglobin A1c % 6.2 %
[2022-10-03 08:50] LABS: Anion Gap 11 (12-20); Blood Urea Nitrogen 22 mg/dL (9-16); Calcium 8.8 mg/dL (8.4-10.2); Carbon Dioxide 27 mmol/L (22-29); Chloride 108 mmol/L (96-108); Cholesterol 98 mg/dL; Estimated Glomerular Filt Rate > 60; Glucose Random 124 mg/dL (60-115); HDL Cholesterol 26 mg/dL; Iron 86 mcg/dL (45-160); LDL Cholesterol Calculated 42 mg/dl; Percent Iron Saturation 25 % (15-50); Potassium 5.4 mmol/L (3.3-5.1); Prostate Specific Antigen < 0.10 ng/mL (<0.05-4.0); Sodium 141 mmol/L (135-145); Total Iron Binding Capacity 339 mcg/dL (228-428); Triglycerides 151 mg/dL; Unsaturated Iron Binding 253 ug/dL
[2022-10-03 08:53] LABS: Vitamin B12 526 pg/mL (200-900)
[2022-10-03 09:14] LABS: Appearance Urine Clear; Color Urine Yellow; Glucose Urine UA Negative (Negative); Leukocyte Esterase Urine Negative (Negative); Nitrite Urine Negative (Negative); Specific Gravity - Urine 1.015 (1.005-1.025); Urine Blood Negative (Negative); Urine Ketones Negative (Negative); Urine Protein Negative (Neg-Trace)
[2022-10-03 09:21] LABS: Bacteria Urine None Seen (None Seen); Hyaline Casts Urine 0-2 /LPF (0-2); RBC Urine 0-2 /HPF (0-2); Squamous Epithelial Cell Urine 0-2 /HPF (0-2); WBC Urine 0-5 /HPF (0-5)
== END 2022-10-03 07:22 | disposition home or self-care (01) ==
LOC: HO.LAB 07:21
PROVIDERS: PCP Internal Medicine; Visit Provider Internal Medicine
DX: Z12.5 Encounter for screening for malignant neoplasm of prostate (principal); E11.9 Type 2 diabetes mellitus without complications; E78.00 Pure hypercholesterolemia, unspecified; D64.9 Anemia, unspecified; E53.8 Deficiency of other specified B group vitamins
CPT/HCPCS: 36415; 80048; 80061; 81001; 82607; 83036; 83540; 84153

== ENCOUNTER → 2022-10-12 14:41 | Outpatient (BNVA) | payer MEDICARE, SELFPAY ==
[2022-02-03 06:38] VITALS: BP 124/60; BMI 37.7
== END ==
PROVIDERS: PCP Internal Medicine; Referring Provider Internal Medicine; Visit Provider Internal Medicine Cardiovascular Disease
DX: I25.10 Atherosclerotic heart disease of native coronary artery without angina pectoris (principal)
CPT/HCPCS: 99212

== ENCOUNTER 2023-02-22 12:18 | Outpatient (REF) | payer MEDICARE, SELFPAY ==
[2022-02-03 06:38] VITALS: BP 124/60; BMI 37.7
[2023-02-22 14:00] LABS: Estimated Average Glucose 137 mg/dL; Hemoglobin A1c % 6.4 %
[2023-02-22 14:02] LABS: Alanine Aminotransferase 15 U/L (0-40); Albumin Level 3.7 g/dL (3.5-5.0); Alkaline Phosphatase 108 U/L (39-117); Anion Gap 11 (12-20); Aspartate Amino Transferase 20 U/L (5-37); Bilirubin Total 0.3 mg/dL (0.0-1.0); Blood Urea Nitrogen 30 mg/dL (9-16); Calcium 8.7 mg/dL (8.4-10.2); Carbon Dioxide 26 mmol/L (22-29); Chloride 110 mmol/L (96-108); Estimated Glomerular Filt Rate 60; Glucose Random 121 mg/dL (60-115); Potassium 5.7 mmol/L (3.3-5.1); Sodium 141 mmol/L (135-145)
== END 2023-02-22 12:19 | disposition home or self-care (01) ==
LOC: HO.10HDL 12:18
PROVIDERS: Visit Provider Internal Medicine
DX: E11.9 Type 2 diabetes mellitus without complications (principal); I10 Essential (primary) hypertension; I25.10 Atherosclerotic heart disease of native coronary artery without angina pectoris
CPT/HCPCS: 36415; 80053; 83036

== ENCOUNTER 2023-02-24 10:58 | Outpatient (REF) | payer MEDICARE, SELFPAY ==
[2022-02-03 06:38] VITALS: BP 124/60; BMI 37.7
[2023-02-24 14:37] LABS: Anion Gap 12 (12-20); Carbon Dioxide 24 mmol/L (22-29); Chloride 110 mmol/L (96-108); Potassium 5.2 mmol/L (3.3-5.1); Sodium 141 mmol/L (135-145)
== END 2023-02-24 10:59 | disposition home or self-care (01) ==
LOC: HO.10HDL 10:58
PROVIDERS: Visit Provider Internal Medicine
DX: E87.5 Hyperkalemia (principal)
CPT/HCPCS: 36415; 80051

== ENCOUNTER → 2023-03-23 14:49 | Outpatient (BNVA) | payer MEDICARE, SELFPAY ==
[2022-02-03 06:38] VITALS: BP 124/60; BMI 37.7
== END ==
PROVIDERS: PCP Internal Medicine; Referring Provider Internal Medicine; Visit Provider Internal Medicine Cardiovascular Disease
DX: I25.10 Atherosclerotic heart disease of native coronary artery without angina pectoris (principal); I73.9 Peripheral vascular disease, unspecified
CPT/HCPCS: 99212

== ENCOUNTER 2023-04-02 10:57 | Outpatient (REF) | payer MEDICARE, SELFPAY ==
[2022-02-03 06:38] VITALS: BP 124/60; BMI 37.7
[2023-04-02 12:53] LABS: Anion Gap 11 (12-20); Blood Urea Nitrogen 25 mg/dL (9-16); Calcium 8.6 mg/dL (8.4-10.2); Carbon Dioxide 27 mmol/L (22-29); Chloride 110 mmol/L (96-108); Estimated Glomerular Filt Rate > 60; Glucose Random 140 mg/dL (60-115); Potassium 4.9 mmol/L (3.3-5.1); Sodium 143 mmol/L (135-145)
== END 2023-04-02 10:58 | disposition home or self-care (01) ==
LOC: HO.LAB 10:57
PROVIDERS: PCP Internal Medicine; Visit Provider Internal Medicine Cardiovascular Disease
DX: I25.10 Atherosclerotic heart disease of native coronary artery without angina pectoris (principal); R06.02 Shortness of breath
CPT/HCPCS: 36415; 80048

== ENCOUNTER 2023-05-04 10:20 | Outpatient (REF) | payer MEDICARE, SELFPAY ==
[2022-02-03 06:38] VITALS: BP 124/60; BMI 37.7
[2023-04-20 12:48] VITALS: BP 140/40; BP 94/40; BMI 36.5
--- NOTE | ~2023-05-04 | CT_ITS ---
EXAMINATION: CT ANGIOGRAPHY ABDOMEN, PELVIS AND LOWER EXTREMITY RUNOFF WITH CONTRAST HISTORY: Peripheral vascular disease. COMPARISON: CT abdomen and pelvis 07/16/2021 TECHNIQUE: Routine abdominal aorta and lower extremity runoff CTA protocol with contrast was performed. 80 mL of Omnipaque-350 was administered. 3D POSTPROCESSING: Multiple 3-D angiographic images were processed from the initial data set by the [facility] under concurrent physician supervision. This CT examination was performed using dose optimization techniques as appropriate, variously including the following: *Automated exposure control *Adjustment of mA and/or kV according to patient size (this includes techniques or standardized protocols for targeted exams where dose is matched to indication/reason for exam; i.e. extremities or head *Use of iterative reconstruction technique DLP: 830 mGy-cm FINDINGS: VASCULAR: There is some limitation in evaluation as tibial runoff is not optimally opacified but appears without significant disease as described below. ABDOMINAL AORTA: Moderate calcific and noncalcific plaque is present in the abdominal aorta. There is mild infrarenal dilatation with maximal dimension of 2.4 x 3.8 cm.. RIGHT LOWER EXTREMITY: - Common Iliac Artery: Calcific plaque without significant stenosis. - Internal Iliac Artery: Mild disease but patent. - External Iliac Artery: No significant disease. - Common Femoral Artery: Mild calcific posterior plaque without stenosis. - Profunda Femoral Artery: Widely patent. - Superficial Femoral Artery: Mild calcific plaque at adductor canal without significant stenosis. There is one area of mild narrowing at the level of the adductor canal (6:1160). - Popliteal Artery: Minimal calcific plaque. Widely patent. - Tibioperoneal Trunk: Widely patent. - Posterior Tibial Artery: Widely patent. - Peroneal Artery: Widely patent. - Anterior Tibial Artery: Widely patent. LEFT LOWER EXTREMITY: - Common Iliac Artery: Calcific plaque without significant stenosis. - Internal Iliac Artery: Mild disease but widely patent. - External Iliac Artery: No significant disease. - Common Femoral Artery: Minimal posterior plaque without stenosis. - Profunda Femoral Artery: Widely patent. - Superficial Femoral Artery: Widely patent with some mild calcific plaque at the adductor canal without stenosis. - Popliteal Artery: Widely patent. - Tibioperoneal Trunk: Widely patent. - Posterior Tibial Artery: Widely patent. - Peroneal Artery: Widely patent. - Anterior Tibial Artery: Widely patent. CELIOMESENTERIC ARTERIES: The celiac and SMA are widely patent. Tight stenosis seen at the origin of the IRVING.. RENAL ARTERIES: Single renal arteries are present bilaterally which demonstrate mild atherosclerotic changes without significant stenosis. NONVASCULAR: Lung Bases: The visualized lung bases are unremarkable. Liver, Gallbladder and Biliary Tree: The liver is normal in size, and shape but demonstrates decreased attenuation consistent with hepatic steatosis. No focal hepatic lesion or biliary ductal dilatation is present. Status post cholecystectomy. Pancreas: Unremarkable. Spleen: Mild splenomegaly at 12.2 cm. Adrenal Glands: Unremarkable. Kidneys and Ureters: The kidneys are normal in size, shape, and attenuation. No hydronephrosis, hydroureter, or calculi seen. Multiple benign Bosniak class I renal cysts are noted, the largest measuring 6 cm at the right lower pole which require no additional imaging or follow-up. No solid renal masses are seen. . Bladder: Unremarkable. Gastrointestinal Tract: There is been prior gastrojejunostomy. Extensive sigmoid diverticulosis without diverticulitis. The small and large bowel are otherwise unremarkable. The appendix is unremarkable. Abdominal Wall: There has been prior midline abdominal surgery. No hernia seen. Lymph Nodes: No retroperitoneal lymphadenopathy. Pelvic Viscera: The prostate and seminal vesicles are not seen. Osseous Structures: Degenerative changes are present throughout the spine most marked at L4 through S1. No bony destructive lesions. CT/CT angio abd aorta runoff IMPRESSION: 1. There is no evidence of hemodynamically significant peripheral vascular disease. There is some mild calcific plaque at the adductor canals with one area of minimal narrowing on the right. Good three-vessel runoff is seen bilaterally. 2. Nonvascular findings significant for hepatic steatosis, cholecystectomy, gastrojejunostomy, diverticulosis without diverticulitis, prostatectomy and degenerative changes in the spine.
[2023-05-04] MEDS: iohexoL 350 MG/ML 100 ML INFUS..BTL IV (11:54)
== END 2023-05-04 10:21 | disposition home or self-care (01) ==
LOC: HO.CT 10:20
PROVIDERS: Visit Provider Internal Medicine Cardiovascular Disease
DX: I73.9 Peripheral vascular disease, unspecified (principal)
CPT/HCPCS: 75635; Q9967

== ENCOUNTER 2023-05-08 08:03 | Outpatient (REF) | payer MEDICARE, SELFPAY ==
[2023-04-20 12:48] VITALS: BP 140/40; BP 94/40; BMI 36.5
[2023-05-08 09:12] LABS: Anion Gap 12 (12-20); Blood Urea Nitrogen 22 mg/dL (9-16); Calcium 8.9 mg/dL (8.4-10.2); Carbon Dioxide 28 mmol/L (22-29); Chloride 107 mmol/L (96-108); Estimated Glomerular Filt Rate > 60; Glucose Random 114 mg/dL (60-115); Potassium 4.5 mmol/L (3.3-5.1); Sodium 142 mmol/L (135-145)
[2023-05-08 09:56] LABS: B Type Natriuretic Peptide 55 pg/mL (<100)
== END 2023-05-08 08:04 | disposition home or self-care (01) ==
LOC: HO.LAB 08:03
PROVIDERS: PCP Internal Medicine; Visit Provider Nurse Practitioner Family
DX: R60.9 Edema, unspecified (principal)
CPT/HCPCS: 36415; 80048; 83880

== ENCOUNTER 2023-05-20 14:19 | Outpatient (REF) | payer MEDICARE, SELFPAY ==
[2023-04-20 12:48] VITALS: BP 140/40; BP 94/40
[2023-05-19 08:04] VITALS: BP 126/50; BMI 37.2
== END 2023-05-20 14:20 | disposition home or self-care (01) ==
LOC: HO.LAB 14:19
PROVIDERS: PCP Internal Medicine; Visit Provider Internal Medicine Cardiovascular Disease
DX: R06.02 Shortness of breath (principal); I25.10 Atherosclerotic heart disease of native coronary artery without angina pectoris; J44.1 Chronic obstructive pulmonary disease with (acute) exacerbation
CPT/HCPCS: 36415; 80048; 83880

== ENCOUNTER 2023-05-25 16:05 | Outpatient (REF) | payer MEDICARE, SELFPAY ==
[2023-04-20 12:48] VITALS: BP 140/40; BP 94/40
[2023-05-19 08:04] VITALS: BP 126/50; BMI 37.2
--- NOTE | ~2023-05-25 | US_ITS ---
EXAMINATION: US VENOUS ULTRASOUND WITH DOPPLER LOWER EXTREMITY, LEFT CLINICAL INFORMATION: Left leg swelling. COMPARISON: None available. TECHNIQUE: Ultrasound of the deep veins is performed from the hip to the calf with compression sonography and color and pulse Doppler assessment. Spectral analysis with color-flow imaging is performed. FINDINGS: There is normal venous compression and respiratory variation and augmented flow. The visualized common femoral vein, superficial femoral vein, profunda femoral vein, popliteal vein, and the trifurcation region shows no evidence of deep venous thrombosis. No left popliteal cyst. The subcutaneous soft tissues are unremarkable. If the patient's symptoms persist, followup ultrasound in 5 days 7 days might be of value to exclude proximal propagation from a non-visualized calf vein. US/US venous duplex LE LT IMPRESSION: No DVT demonstrated in the left lower extremity.
[2023-05-25 17:43] LABS: Basophils Percent Auto 0.6 % (0-2); Eosinophils Absolute Auto 0.2 X10*3/uL (0.0-0.4); Eosinophils Percent Auto 2.5 % (0-4); Hematocrit 30.7 % (42.0-52.0); Hemoglobin 8.5 g/dl (14.0-18.0); Imm Gran Abs Auto 0.02 X10*3/uL (0.00-0.03); Imm Gran Pct Auto 0.3 % (0.0-0.4); Lymphocytes Absolute Auto 1.6 X10*3/uL (1.2-4.9); Lymphocytes Percent Auto 22.6 % (20-40); MANUAL DIFF FLAG NO; Mean Corpuscular HGB Conc 27.7 g/dl (31.0-36.0); Mean Corpuscular Hemoglobin 19.7 pg (27.0-33.0); Mean Corpuscular Volume 71.1 fL (80.0-98.0); Mean Platelet Volume 10.5 fL (9.4-12.4); Monocytes Absolute Auto 0.8 X10*3/uL (0.1-1.2); Monocytes Percent Auto 11.2 % (2-11); Neutrophils Absolute Auto 4.5 x10*3/uL (2.0-8.3); Neutrophils Percent Auto 62.8 % (45-73); Platelet Count 270 X10*3/uL (160-400); Red Blood Count 4.32 X10*6/uL (4.60-5.80); Red Cell Distribution Width 19.3 % (11.0-16.0); White Blood Count 7.2 X10*3/uL (4.8-10.8)
[2023-05-25 17:59] LABS: Creatinine Urine 204.09 mg/dL; Microalbum/Creatinine Ratio Ur 5.8 ug/mg cr
[2023-05-25 18:03] LABS: Estimated Average Glucose 131 mg/dL; Hemoglobin A1c % 6.2 %
[2023-05-25 18:11] LABS: Alanine Aminotransferase 11 U/L (0-40); Albumin Level 3.5 g/dL (3.5-5.0); Alkaline Phosphatase 93 U/L (39-117); Anion Gap 14 (12-20); Aspartate Amino Transferase 15 U/L (5-37); Bilirubin Total 0.4 mg/dL (0.0-1.0); Blood Urea Nitrogen 30 mg/dL (9-16); Calcium 9.1 mg/dL (8.4-10.2); Carbon Dioxide 26 mmol/L (22-29); Chloride 107 mmol/L (96-108); Estimated Glomerular Filt Rate 57; Glucose Random 92 mg/dL (60-115); Potassium 4.7 mmol/L (3.3-5.1); Sodium 142 mmol/L (135-145); Total Protein 6.3 g/dL (6.5-8.0)
[2023-05-25 18:36] LABS: Vitamin B12 261 pg/mL (200-900)
== END 2023-05-25 16:06 | disposition home or self-care (01) ==
LOC: HO.US 16:05
PROVIDERS: PCP Internal Medicine; Visit Provider Internal Medicine
DX: R22.42 Localized swelling, mass and lump, left lower limb (principal); E11.9 Type 2 diabetes mellitus without complications; J44.9 Chronic obstructive pulmonary disease, unspecified; I25.10 Atherosclerotic heart disease of native coronary artery without angina pectoris; K21.9 Gastro-esophageal reflux disease without esophagitis
CPT/HCPCS: 36415; 80053; 82043; 82607; 83036; 85025; 93971

== ENCOUNTER 2023-06-02 11:07 | Outpatient (AMB) | payer MEDICARE, SELFPAY ==
[2023-04-20 12:48] VITALS: BP 140/40; BP 94/40
[2023-05-19 08:04] VITALS: BP 126/50; BMI 37.2
[2023-06-02 11:09] VITALS: BP 130/68; PULSE 81; O2SAT 96; BMI 36.0
--- NOTE | 2023-06-02 11:09 | A.OFFVIS_ITS ---
Intake Vital Signs 06/02/23 11:09 Height 5 ft 10 in Weight 251 lb BMI 36.0 BP 130/68 Blood Pressure Location Lt brachial Position Standing Pulse 81 Pulse Source Pulse Oximeter Pulse Oximetry (%) 96 Oxygen Delivery Method Room Air Intake Visit Reasons: persistent cough Intake Note: pt is here for follow up and states he is stating that he gets all this phelgm that he cannot get out that he will pull a muscle from coughing. Tap Out Operator Required: No Allergies No Known Allergies Allergy (Verified 06/02/23 11:16) HPI HPI Comments History of Present Illness Details The patient is a 78-year-old gentleman with a question history of COPD who presents with worsening dyspnea and abnormal CT scan of the chest. He states for the last several months the patient does get short of breath with activity. If he climbs up at down stairs she does get short of breath. [id number] severity. Apparently he was seen in the ER for worsening respiratory symptoms. 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 Therefore, the patient is referred to Pulmonary. Overall the patient feels well. He stays active. He denies any significant coughing. 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 In addition to that he does have a smoking history. He also complains of daytime drowsiness. He has a hard time sleeping in does wake up short of breath at times. The patient has underlying COPD and based on hypoxia he should have a overnight oximetry to see if he qualifies for nocturnal oxygen. ?07/04/2020 The patient is here for pulmonary follow-up visit. Overall he is doing better from a respiratory status. Since we last spoke the patient was evaluated for a GI bleed found to have significant gastritis and peptic ulcer disease likely from his drinking dependency. He is now own not drinking alcohol at all. In the meantime he also was evaluated for some chest discomfort and had further cardiac evaluations at [facility] was found to have triple-vessel disease and now plan to have cardiac surgery. For the last 3 weeks he has been without any alcohol and he has been taking care itself. Her weight lost 6 lb any feels better than he had in a long time. ?07/29/2020 The patient is here for pulmonary follow-up visit. Overall the patient is doing well from a respiratory status. He did have his cardiac catheterization demonstrating multiple vessel disease. He will follow up with Cardiology regarding possible interventions surgical versus percutaneous. In the meantime he continues with this cardioprotective medications. He continues taking all his respiratory medicines. He did have pulmonary function studies done today demonstrating [id number] COPD with a moderate diffusion impairment. The patient also has significant tracheomalacia. Explained to the patient that he does have increased moderate risk for pulmonary perioperative complications. These risks include; atelectasis, hypoxia, pneumonia and prolonged mechanical ventilation. At this point the patient is medically optimized from a pulmonary standpoint in March go ahead and have surgery. 02/24/2022 this is a pulmonary follow-up visit. The patient is a 76-year-old gentleman who has been lost to follow-up now for several years. He has underlying COPD. Apparently had worsening respiratory symptoms and he came into the emergency department where he was diagnosed with a left lower lobe pneumonia. He was admitted for COPD exacerbation as well. He did require oxygen. He was subsequently discharged home on Vantin azithromycin and also prednisone. He also has inhalers. He has been concerned about the inhalers because of the side effects. I did reassure him that he should be taking it. In addition to that he did benefit from nebulizer. Therefore will make sure that he gets a nebulizer before he goes home. He still having some issues with dyspnea on exertion. We did taken for 6 minute walk test the patient did qualify for oxygen with activity with a conserving device. 2 L pulse. Will submit that to the local [employer] in order for him to start the oxygen. He also should use at nighttime while sleeping. The patient needs to have repeat pulmonary function studies to assess his lung capacity. He also has underlying coronary artery disease and they are considering cardiac surgery for him will continue to reassess him from a pulmonary standpoint. 04/08/2022 the patient is here for a pulmonary follow-up visit. Since we last spoke the patient again was admitted to the hospital with chest discomfort. He was then referred to [facility] where he was evaluated by Cardiac surgery. Ultimately underwent a cardiac catheterization in had to stent placement. Therefore, he did not need open her surgery. After he was discharged from the hospital he started developing worsening shortness of breath cough and fever. He was admitted again to the [facility] with now pneumonia. The pneumonia was on the left side. The patient was given antibiotics and he improved. He was upset that pulmonary did not see him while he was there. However, Pulmonary was not consulted. I did advise him that the next time if it does happen he can always call our office so we can request a consultation. She will then have him undergo pulmonary function studies and he should start pulmonary rehab / cardiac rehab. The patient also would benefit from repeating the chest x-ray to make sure that that abnormal left lower lobe airspace disease improves in the next couple months. the patient is also using the oxygen therapy. He needs a appeals writer tank. I did request a pulse conserving device in order for him to get back appropriate oxygen and be able to carry the oxygen tank with him. 08/10/2022 the patient is here for a pulmonary follow-up visit. The patient has had a very vent full spring and summer. Apparently he has been admitted multiple times with left lower lobe pneumonias and also underwent a percutaneous cardiac intervention with couple stents placed for the heart. Subsequently after that he then developed another bout of pneumonia this time on the right side. He has been concerned with the multiple pneumonias. He does g et x-rays demonstrating clearing of the process after worse. He has not been using the oxygen and he wants the oxygen to be picked up at this time and I will do may make an order for that to happen. The patient also has been having issues with wheezing chest tightness as well. This is moderate severity. The patient has had very abnormal x-rays. Therefore I will request a CT scan of the chest to better address the recurrent pneumonias. The patient will also undergo blood work and start a course of antibiotics at this time. The patient does benefit from prednisone although he has concerns about his elevated sugars. Therefore will do a low-dose prednisone at this time. 06/01/2023 the patient is here for a pulmonary follow-up visit. He continues to have a significant productive cough. Difficult to expectorate. Moderate severity. The cough medication with codeine was not very effective for him. He kept coughing through the night. He was given a different cough medication in the past that seemed to work better. I do not have any records of it and we did call 3 different pharmacy tried identify the medication but still not clear. He will continue taking the guaifenesin with codeine for now. In meantime he did have a CT scan of the chest that we did evaluate. Appears to have a small right upper lobe nodular density measuring 1 cm. Although it is very ill-defined and indeed could be related to scarring. The patient also has some treating budding the right lower lobe area and has some chronic airway issues. 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 Will start CPT with acapella valve. REPLACED BY [facility] Medical History (Updated 06/03/23 @ 22:32 by Thomas Steele MD) CAD (coronary artery disease) Chronic stable angina COPD (chronic obstructive pulmonary disease) Diabetes Hospital-acquired pneumonia HTN (hypertension) Hyperlipidemia Migrated colon stent Nephrolithiasis Obesity MAYA (obstructive sleep apnea) Pneumonia Prostate cancer Pulmonary nodule Right bundle branch block (RBBB) on electrocardiogram (ECG) Tracheobronchomalacia Surgical History History of basal cell carcinoma (BCC) excision History of carpal tunnel release History of eye surgery Hx laparoscopic cholecystectomy Hx of arthroscopy of knee Hx of cardiac cath Hx of hernia repair Hx of lithotripsy Hx of spinal surgery Stented coronary artery Family History Father CVD (cardiovascular disease) Mother CVD (cardiovascular disease) Brother CVD (cardiovascular disease) Social History Household Members: Spouse Housing: House Do you presently have visiting nurse or other home services: No Alcohol intake: never Patient Tobacco Use Status: Former Tobacco user Quit Date: 2009 Tobacco use type: Cigarette Cigarette Packs Per Day: 1 Years Smoked: 30+ Advance Directives Date on File: 07/17/21 service: No Current occupational status: retired Review of Systems Const Denies fever(s) Eyes Denies loss of vision ENT Reports nasal congestion and Reports nasal discharge Card Denies chest pain and Reports dyspnea on exertion Resp Reports chest congestion, Reports cough, Denies hemoptysis, Reports dyspnea on exertion and Reports wheezing GI Reports no additional complaints Reports no additional complaints Musc Reports no additional complaints Skin/Breast Denies rash Neuro Reports no additional complaints and Denies loss of vision Endo Reports no additional complaints Aller/Immun Reports wheezing Physical Exam Vital Signs: Last Vital Signs Pulse 81 06/02/23 11:09 BP 130/68 06/02/23 11:09 Pulse Ox 96 06/02/23 11:09 Oxygen Delivery Method Room Air 06/02/23 11:09 BMI result Body Mass Index 36.0 Const General: alert Neck Neck: Yes normal visual inspection, Yes full ROM and Yes no lymphadenopathy Chest Chest palpation & inspection: normal inspection of the chest Resp Auscultation: rhonchi, wheezes and diminished lung sounds Cardio Rate: regular rate Rhythm: regular rhythm Heart sounds: S1 normal heart sound present and S2 normal heart sound present GI Palpation (GI): Soft to palpation and nontender Auscultation: normal bowel sounds Skin General skin exam: rashes and/or lesions noted Assessment & Plan Assessment & Plan (1) COPD (chronic obstructive pulmonary disease): Comment: 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 Code(s): J44.9 - Chronic obstructive pulmonary disease, unspecified Qualifiers: COPD type: COPD with acute exacerbation Qualified Code(s): J44.1 - Chronic obstructive pulmonary disease with (acute) exacerbation (2) CAD (coronary artery disease): Comment: s/p PCI x 2 stents 04/05 Code(s): I25.10 - Atherosclerotic heart disease of [place] coronary artery without angina pectoris (3) Pulmonary nodule: Code(s): R91.1 - Solitary pulmonary nodule (4) Tracheobronchomalacia: Code(s): J39.8 - Other specified diseases of upper respiratory tract Plan Continue AirDuo Short-acting beta agonist as needed cough syrup Add acapella valve for CPT Will repeat CT chest, short interval 3-4 months Follow-up in 3-4 months Orders: Orders CT chest wo IV con 08/24/23 R91.1 - Solitary pulmonary nodule Coding Level of Care Code Est Pt Level 4 (30903) Diagnoses COPD (chronic obstructive pulmonary disease) J44.1 COPD type: COPD with acute exacerbation CAD (coronary artery disease) I25.10 Pulmonary nodule R91.1 Tracheobronchomalacia J39.8 Time Spent (min) 19
== END 2023-06-02 11:38 | disposition home or self-care (01) ==
PROVIDERS: PCP Internal Medicine; Visit Provider Hospitalist
DX: J44.1 Chronic obstructive pulmonary disease with (acute) exacerbation (principal); I25.10 Atherosclerotic heart disease of native coronary artery without angina pectoris; R91.1 Solitary pulmonary nodule; J39.8 Other specified diseases of upper respiratory tract
CPT/HCPCS: 99214

== ENCOUNTER → 2023-06-02 11:07 | Outpatient (BNVA) | payer MEDICARE, SELFPAY ==
[2023-04-20 12:48] VITALS: BP 140/40; BP 94/40
[2023-05-19 08:04] VITALS: BP 126/50; BMI 37.2
== END ==
PROVIDERS: PCP Internal Medicine; Visit Provider Hospitalist
DX: J44.1 Chronic obstructive pulmonary disease with (acute) exacerbation (principal); R91.1 Solitary pulmonary nodule; J39.8 Other specified diseases of upper respiratory tract; I25.10 Atherosclerotic heart disease of native coronary artery without angina pectoris
CPT/HCPCS: 99212

== ENCOUNTER → 2023-06-08 09:55 | Outpatient (REF) | payer MEDICARE, SELFPAY ==
[2023-04-20 12:48] VITALS: BP 140/40; BP 94/40
[2023-05-19 08:04] VITALS: BP 126/50; BMI 37.2
--- NOTE | ~2023-06-08 | NM_ITS ---
Lexiscan Myocardial perfusion study Indication: Coronary artery disease, history of PCI, assess for ischemia Technique: The patient was brought in for a Lexiscan perfusion study on 06/08/2023 and was injected 0.4 mg of Lexiscan intravenously. Within a minute of this injection 35 mCi of sestamibi was given intravenously. Images were obtained using the SPECT gamma camera interlaced with the gating device. Images were obtained in supine position. Resting perfusion study was performed on 06/09/2023. Patient was administered 35 mCi of sestamibi intravenously at rest. Images were then obtained in supine position. Images were processed with the software and compared side to side in short axis, horizontal long axis and vertical long axis views. Total DLP 101mGy-cm. Findings: Raw acquisition reviewed. The stress perfusion study showed diminished tracer uptake along the inferior wall. There is improvement with CT attenuation correction suggestive of diaphragmatic attenuation artifact. The gated study shows normal LV systolic function with calculated LVEF of 61%. LV cavity is normal in size. The gated study shows normal wall thickening and contraction of segments. Resting study shows diminished tracer uptake along the inferior wall. There is improvement with CT attenuation correction suggestive of diaphragmatic attenuation artifact. Gating could not be completed during rest. NM/NM cardiolite stress test Impression: 1. Myocardial perfusion imaging study shows no clear evidence of any ischemia or infarction. Probably normal perfusion. 2. Gated LVEF is 61% during stress. Gating not performed during rest. EKG component of the test reported separately.
--- NOTE | 2023-06-08 09:58 | CA_ITS ---
Acquisition Time: 2023-06-08 10:16:39 Total Exercise Time: 00:02:00 Test Indications: Abnormal ECG CAD Medications: SEE H Protocol: LEXISCAN Max HR: 089 BPM 63% of Pred: 141 BPM Max BP: 126/058 mmHG Max Work Load: 1.0 METS Pharmacological stress test with Lexiscan injection while sitting and kicking his legs, without anginal symptoms, with isolated PACs, with normotensive response to injection, with non-diagnostic EKGs. Aminophylline 75mg IVP given to reverse Lexiscan. Nuclear images pending. Test reviewed with Dr. Gale. Referred By: Elver Gale Overread By: Lorraine Luis
== END ==
LOC: HO.CARD 09:55
PROVIDERS: PCP Internal Medicine; Visit Provider Internal Medicine Cardiovascular Disease
DX: I25.10 Atherosclerotic heart disease of native coronary artery without angina pectoris (principal); R06.02 Shortness of breath; J44.1 Chronic obstructive pulmonary disease with (acute) exacerbation
CPT/HCPCS: 78452; 93017; A9500; J0280; J2785

== ENCOUNTER → 2023-06-08 09:58 | Outpatient (BNV) | payer MEDICARE, SELFPAY ==
[2023-04-20 12:48] VITALS: BP 140/40; BP 94/40
[2023-05-19 08:04] VITALS: BP 126/50; BMI 37.2
== END ==
PROVIDERS: PCP Internal Medicine; Visit Provider Nurse Practitioner
DX: R94.31 Abnormal electrocardiogram [ECG] [EKG] (principal); I49.1 Atrial premature depolarization
CPT/HCPCS: 78452; 93016; 93018

== ENCOUNTER 2023-07-24 19:18 | Inpatient (IN) | payer MEDICARE, SELFPAY ==
[2023-04-20 12:48] VITALS: BP 140/40; BP 94/40
[2023-05-19 08:04] VITALS: BP 126/50; BMI 37.2
--- NOTE | ~2023-07-24 | US_ITS ---
EXAMINATION: US VENOUS ULTRASOUND WITH DOPPLER LOWER EXTREMITY, BILATERAL CLINICAL INFORMATION: Leg swelling COMPARISON: 04/25/2023 TECHNIQUE: Ultrasound of the deep veins is performed from the hip to the calf with compression sonography and color and pulse Doppler assessment. Spectral analysis with color-flow imaging is performed. FINDINGS: RIGHT: There is normal venous compression and respiratory variation and augmented flow. The visualized common femoral vein, superficial femoral vein, profunda femoral vein, popliteal vein, and the trifurcation region shows no evidence of deep venous thrombosis. There is no significant popliteal fossa cyst. LEFT: There is normal venous compression and respiratory variation and augmented flow. The visualized common femoral vein, superficial femoral vein, profunda femoral vein, popliteal vein, and the trifurcation region shows no evidence of deep venous thrombosis. There is no significant popliteal fossa cyst. If the patient's symptoms persist, followup ultrasound in 5 days 7 days might be of value to exclude proximal propagation from a non-visualized calf vein. US/US venous duplex LE BI IMPRESSION: No DVT demonstrated in the bilateral lower extremity.
--- NOTE | ~2023-07-24 | XR_ITS ---
EXAMINATION: XR CHEST CLINICAL INFORMATION: Shortness of breath. COMPARISON: 07/13/2022 TECHNIQUE: Frontal view of the chest was obtained. FINDINGS: The lung volumes are low. The cardiomediastinal silhouette is normal. There has been clearing of previous right-sided infiltrates. There is no focal lung consolidation or pleural effusion. The bony structures and soft tissues are unremarkable. XR/XR chest 1V IMPRESSION: Low lung volume slightly limits evaluation. There is no current evidence for active cardiopulmonary disease.
[2023-07-24 20:37] VITALS: BP 128/104; PULSE 109; RESP 22; TEMP 39.5; O2SAT 89; BMI 36.0
--- NOTE | 2023-07-24 20:48 | ECG_ITS ---
Test Reason : SOB Blood Pressure : / mmHG Vent. Rate : 098 BPM Atrial Rate : 098 BPM P-R Int : 166 ms QRS Dur : 132 ms QT Int : 374 ms P-R-T Axes : 019 -47 027 degrees QTc Int : 477 ms Normal sinus rhythm Left axis deviation Right bundle branch block Inferior infarct , age undetermined Abnormal ECG When compared with ECG of 13-JUL-2022 09:08, No significant change was found Referred By: Generic ED Physician Electronically Signed By:ARLEEN SANDERS
--- NOTE | 2023-07-24 21:04 | ED.SOB ---
HPI - SOB/Dyspnea General Chief Complaint: Upper Respiratory Symptoms Stated Complaint: covid + with COPD Time Seen by Provider: 07/24/23 20:58 Source: patient, family and old records reviewed Mode of arrival: ambulatory Limitations: no limitations History of Present Illness HPI Narrative: 78 yo male with hx of COPD not on home O2, tracheobronchomalacia, pyelonephritis, bacteremia, CAP, CAD, HTN, HLD obesity, here with c/o fevers, chills, cough, wheezing, vaccinated for COVID x 3 and doesn't feel well. He reports + COVID test today. He feels short of breath and weak. Has mild L upper chest pain at times with cough and at rest. Has been sick all day with symptoms. MD elicited complaint: shortness of breath and cough Pertinent past history: COPD and diabetes Onset (ago): day(s) (1) Context: recent illness (+ for COVID) Timing: constant Severity: moderate Exacerbating factors: exertion and coughing Relieving factors: rest and bronchodilators Known history of: COPD and diabetes Associated symptoms: fever, cough, wheezing, sputum production and lightheadedness Treatment prior to arrival: bronchodilator Related Data Home Medications Medication Instructions Recorded Confirmed allopurinol 100 mg tablet 100 mg PO DAILY 09/16/20 03/23/23 lisinopril 10 mg tablet 10 mg PO DAILY 09/16/20 03/23/23 amlodipine 5 mg tablet 5 mg PO DAILY 02/20/22 03/23/23 aspirin 81 mg tablet,delayed 81 mg PO DAILY 03/20/22 03/23/23 release lorazepam 0.5 mg tablet 1 tab PO BEDTIME PRN Insomnia 03/20/22 03/23/23 gabapentin 300 mg capsule 300 mg PO QID PRN Pain 07/13/22 03/23/23 (Neurontin) cyclobenzaprine 10 mg tablet 10 mg PO BID PRN Pain 08/10/22 03/23/23 metformin 500 mg tablet 250 mg PO BIDWM 09/17/22 03/23/23 ferrous sulfate 325 mg (65 mg 325 mg PO DAILY 06/02/23 iron) tablet (FeroSul) mecobalamin (vitamin B12) 500 mcg mcg PO 06/02/23 chewable tablet Previous Rx's Medication Instructions Recorded blood sugar diagnostic (FreeStyle #100 ea 03/24/22 Lite Strips) blood-glucose meter (FreeStyle #1 ea 03/24/22 Lite Meter kit) lancets 28 gauge (FreeStyle #100 ea 03/24/22 Lancets) fluticasone 232 mcg-salmeterol 14 1 inh inhalation BID 30 days #1 ea 08/21/22 mcg/actuation breath activated powdr (AirDuo RespiClick) metoprolol succinate 50 mg 50 mg PO DAILY #90 tabs 12/29/22 tablet,extended release 24 hr (Toprol XL) clopidogrel 75 mg tablet 75 mg PO DAILY #30 tabs 01/21/23 atorvastatin 40 mg tablet 40 mg PO QPM #90 tabs 06/10/23 nitroglycerin 0.4 mg sublingual 0.4 mg sublingual Q5M PRN Chest 07/12/23 tablet Pain #25 tabs Allergies Allergy/AdvReac Type Severity Reaction Status Date / Time No Known Allergies Allergy Verified 07/24/23 20:36 Review of Systems Review of Systems: Constitutional : pos Fever, pos Chills ENT/Mouth : No Hoarseness, No sore throat, pos Rhinorrhea Eyes: No Redness, No Discharge, No Vision Changes Cardiovascular : No Chest Pain, positive SOB, positive Dyspnea on Exertion, No Edema Respiratory : positive Cough, pos Sputum, positive Wheezing, Gastrointestinal : No Nausea, No Vomiting, No Diarrhea, No abdominal Pain Genitourinary : No Dysuria, No Hematuria Musculoskeletal : No joint pain, No Myalgias Skin : No rash Neuro : pos Weakness, No Numbness, pos Headache Psych : No anxiety, depression Heme/Lymph: No Bruising, No Bleeding Endocrine : No Polyuria, No Polydipsia All other systems reviewed and are negative [facility] Past Medical History Attestation statement: The following information was validated with the patient. Source: old records reviewed Medical History Tracheobronchomalacia Pulmonary nodule COPD (chronic obstructive pulmonary disease) Migrated colon stent Diabetes Hospital-acquired pneumonia Pneumonia Nephrolithiasis Prostate cancer Obesity MAYA (obstructive sleep apnea) Right bundle branch block (RBBB) on electrocardiogram (ECG) Hyperlipidemia HTN (hypertension) Chronic stable angina CAD (coronary artery disease) Surgical History Hx of arthroscopy of knee Hx of lithotripsy Stented coronary artery Hx of cardiac cath Hx laparoscopic cholecystectomy History of basal cell carcinoma (BCC) excision History of carpal tunnel release Hx of hernia repair History of eye surgery Hx of spinal surgery Family History Family History Father CVD (cardiovascular disease) Mother CVD (cardiovascular disease) Brother CVD (cardiovascular disease) Social History Social History Household Members: Spouse Housing: House Do you presently have visiting nurse or other home services: No Alcohol intake: never Patient Tobacco Use Status: Former Tobacco user Quit Date: 2009 Tobacco use type: Cigarette Cigarette Packs Per Day: 1 Years Smoked: 30+ Advance Directives: No Advance Directives Information Provided: No Advance Directives Date on File: 07/17/21 service: No Current occupational status: retired Physical Exam Vital Signs: Vital Signs: Last Vital Signs Temp 100.4 F 07/24/23 22:34 Pulse 100 07/24/23 22:34 Resp 18 07/24/23 22:34 BP 110/48 L 07/24/23 22:34 Pulse Ox 93 07/24/23 22:34 O2 Del Method Nasal Cannula 07/24/23 22:34 O2 Flow Rate 2 07/24/23 22:34 BMI result Body Mass Index 36.0 Appearance: Alert. Oriented X3. No acute distress. Eyes: Pupils equal, round and reactive to light. ENT: Pharynx normal. Neck: Normal inspection. Neck supple. CVS: tachcyardic heart rate and rhythm. Pulses normal. Respiratory: No respiratory distress. Breath sounds diminished and coarse throughout Abdomen: Soft and nontender. Skin: Skin warm and dry. Normal skin color. Normal skin turgor. Extremities: No lower extremity edema. No calf ttp Neuro: Oriented X 3. No motor deficit. No sensory deficit. Course Course Course Narrative: prognostic labs look good will admit for hypoxia with COVID/COPD Medications Administered Generic Name Dose Route Start Last Admin Trade Name Freq PRN Reason Stop Dose Admin Azithromycin 500 mg/ Sodium 250 mls @ 125 mls/hr 07/24/23 21:10 07/24/23 22:20 Chloride IV 07/24/23 23:09 125 mls/hr ONCE ONE Administration Discontinued Medications Generic Name Dose Route Start Last Admin Trade Name Freq PRN Reason Stop Dose Admin Acetaminophen 650 mg 07/24/23 21:10 07/24/23 21:57 Acetaminophen 325 Mg Tablet PO 07/24/23 21:11 650 mg ONCE ONE Administration Albuterol/Ipratropium 3 ml 07/24/23 21:10 07/24/23 21:43 Albuterol/Iprat 2.5/0.5mg 3 Ml Ampul.Neb INHALE 07/24/23 21:11 3 ml ONCE ONE Administration Dexamethasone Sodium Phosphate 6 mg 07/24/23 21:01 07/24/23 22:20 Dexamethasone Sod Phosphate 4 Mg/Ml Vial IVPUSH 07/24/23 21:02 6 mg ONCE ONE Administration Ceftriaxone Sodium 1 gm/ 50 mls @ 100 mls/hr 07/24/23 21:10 07/24/23 21:59 Sodium Chloride IV 07/24/23 21:39 100 mls/hr ONCE ONE Administration Medical Decision Making Medical Decision Making MDM Narrative: 78 yo male with hx of COPD not on home O2, tracheobronchomalacia, pyelonephritis, bacteremia, CAP, CAD, HTN, HLD obesity here with c/o fevers, cough, wheezing and left sided chest pain starting all day + for COVID at home. At this time placed on O2 he is 88% on RA on arrival does not have O2 at home. Will give steroids, antibiotics, labs, cultures, CXR, EKG and ddimer/trop. He will need admission given new hypoxia. He is aware. Differential Diagnosis Differential Diagnoses: The differential diagnosis associated with the presentation includes COVID 19, hypoxia, viral pneumonia, COPD exacerbation, PE Admission/Observation Consideration of admission/observation: Escalation of care including admission/observation considered given hypoxia and COVID needs admission Consult Healthcare Provider Management of the patient was discussed with: Hospitalist (agrees to admit) Lab Data [facility] Lab Attestation statement: I reviewed the patient's lab results. 07/24/23 21:38 07/24/23 21:38 Labs: Lab Results 07/24/23 Range/Units 21:38 WBC 8.0 (4.8-10.8) X10*3/uL RBC 5.07 (4.60-5.80) X10*6/uL Hgb 12.4 L D (14.0-18.0) g/dl Hct 41.0 L D (42.0-52.0) % MCV 80.9 (80.0-98.0) fL MCH 24.5 L (27.0-33.0) pg MCHC 30.2 L (31.0-36.0) g/dl RDW 21.7 H (11.0-16.0) % Plt Count 168 D (160-400) X10*3/uL MPV 10.0 (9.4-12.4) fL Immature Gran % (Auto) 0.3 (0.0-0.4) % Neut % (Auto) 80.8 H (45-73) % Lymph % (Auto) 7.5 L (20-40) % [place] % (Auto) 10.0 (2-11) % Eos % (Auto) 1.3 (0-4) % Baso % (Auto) 0.1 (0-2) % Lymph # (Auto) 0.6 L (1.2-4.9) X10*3/uL [place] # (Auto) 0.8 (0.1-1.2) X10*3/uL Eos # (Auto) 0.1 (0.0-0.4) X10*3/uL Baso # (Auto) 0.0 (0.0-0.2) X10*3/uL Abs Immat Gran (auto) 0.02 (0.00-0.03) X10*3/uL Absolute Neuts (auto) 6.4 (2.0-8.3) x10*3/uL Absolute Nucleated RBC 0.000 (0.0-0.012) X10*3/uL Nucleated RBC % (auto) 0.0 (0.0-0.2) /100WBC D-Dimer High Sensitivty < 150 NG/ML Sodium 137 (135-145) mmol/L Potassium 4.8 (3.3-5.1) mmol/L Chloride 104 (96-108) mmol/L Carbon Dioxide 25 (22-29) mmol/L Anion Gap 13 (12-20) BUN 30 H (9-16) mg/dL Creatinine 1.20 (0.5-1.4) mg/dL Estim Creat Clear Calc 63.0 Estimated GFR 58 Random Glucose 114 (60-115) mg/dL Lactic Acid 1.2 (0.5-2.0) mmol/L Calcium 8.6 (8.4-10.2) mg/dL Ferritin 13 L (20-250) ng/mL Total Bilirubin 0.4 (0.0-1.0) mg/dL AST 20 (5-37) U/L ALT 12 (0-40) U/L Alkaline Phosphatase 99 (39-117) U/L Troponin I High Sens 3.9 (<3.5-35.0) ng/L Total Protein 6.4 L (6.5-8.0) g/dL Albumin 3.7 (3.5-5.0) g/dL Procalcitonin 0.08 ng/mL Influenza Type A (PCR) NEGATIVE (Negative) Influenza Type B (PCR) NEGATIVE (Negative) RSV RNA Qual (PCR) NEGATIVE (Negative) SARS-CoV-2 RNA (RT-PCR) POSITIVE A (Negative) Independent Interpretation I performed an independent interpretation of an: EKG and Plain X-Ray Interpretation: Rate: 98 Rhythm: NSR [place]: left Normal P waves. Normal DONNY. RBBB ST T wave : inverted t waves V1, V2, no HEATHER qTC: normal prior studies: no acute ischemia The study has been interpreted contemporaneously by me. . Radiology Impression Discussion of test interpretation with radiology: I have reviewed the radiologist's reading. Independent Historian Clinical information obtained from an independent historian. History obtained from or confirmed by: Spouse External Record Review External record reviewed: Office record Discharge Plan Discharge Clinical Impression: COVID-19, Hypoxia COPD (chronic obstructive pulmonary disease) Qualifiers: COPD type: COPD with acute exacerbation Qualified Code(s): J44.1 - Chronic obstructive pulmonary disease with (acute) exacerbation Patient Disposition: Admitted As Inpatient
[2023-07-24 21:43] VITALS: PULSE 103; RESP 18; O2SAT 92
[2023-07-24 21:43] LABS: MANUAL DIFF FLAG NO
[2023-07-24] MEDS: Albuterol/Iprat 2.5/0.5MG 3 ML AMPUL.NEB INHALE (21:43)
[2023-07-24 21:50] LABS: Basophils Percent Auto 0.1 % (0-2); Eosinophils Absolute Auto 0.1 X10*3/uL (0.0-0.4); Eosinophils Percent Auto 1.3 % (0-4); Hemoglobin 12.4 g/dl (14.0-18.0); Imm Gran Abs Auto 0.02 X10*3/uL (0.00-0.03); Imm Gran Pct Auto 0.3 % (0.0-0.4); Lymphocytes Absolute Auto 0.6 X10*3/uL (1.2-4.9); Lymphocytes Percent Auto 7.5 % (20-40); Mean Corpuscular HGB Conc 30.2 g/dl (31.0-36.0); Mean Corpuscular Hemoglobin 24.5 pg (27.0-33.0); Mean Corpuscular Volume 80.9 fL (80.0-98.0); Monocytes Absolute Auto 0.8 X10*3/uL (0.1-1.2); Neutrophils Absolute Auto 6.4 x10*3/uL (2.0-8.3); Neutrophils Percent Auto 80.8 % (45-73); Platelet Count 168 X10*3/uL (160-400); Red Blood Count 5.07 X10*6/uL (4.60-5.80); Red Cell Distribution Width 21.7 % (11.0-16.0)
[2023-07-24 21:55] LABS: Lactic Acid 1.2 mmol/L (0.5-2.0)
[2023-07-24] MEDS: Acetaminophen 325 MG TABLET 650 MG PO (21:57)
[2023-07-24] MEDS: cefTRIAXone sodium 1 GM in 0.9 % Sodium Chloride 50 ML IV (21:59)
[2023-07-24 22:00] LABS: Alanine Aminotransferase 12 U/L (0-40); Albumin Level 3.7 g/dL (3.5-5.0); Alkaline Phosphatase 99 U/L (39-117); Anion Gap 13 (12-20); Aspartate Amino Transferase 20 U/L (5-37); Bilirubin Total 0.4 mg/dL (0.0-1.0); Blood Urea Nitrogen 30 mg/dL (9-16); Calcium 8.6 mg/dL (8.4-10.2); Carbon Dioxide 25 mmol/L (22-29); Chloride 104 mmol/L (96-108); Estimated Glomerular Filt Rate 58; Glucose Random 114 mg/dL (60-115); Potassium 4.8 mmol/L (3.3-5.1); Sodium 137 mmol/L (135-145); Total Protein 6.4 g/dL (6.5-8.0)
[2023-07-24 22:01] VITALS: O2SAT 92
[2023-07-24 22:07] LABS: Troponin-I High Sensitivity 3.9 ng/L (<3.5-35.0)
[2023-07-24] MEDS: Azithromycin 500 MG in 0.9 % Sodium Chloride 250 ML 125 MG IV (22:20)
[2023-07-24] MEDS: dexAMETHasone sod phosphate 4 MG/ML VIAL 6 MG IVPUSH (22:20)
[2023-07-24 22:23] LABS: Ferritin 13 ng/mL (20-250); Influenza A PCR NEGATIVE (Negative); Influenza B PCR NEGATIVE (Negative); Procalcitonin 0.08 ng/mL; Resp Syncy Virus RNA Qual PCR NEGATIVE (Negative); SARS COV2 PCR INHOUSE POSITIVE (Negative)
[2023-07-24 22:34] VITALS: BP 110/48; PULSE 100; RESP 18; TEMP 38; O2SAT 93
[2023-07-24 22:37] LABS: D Dimer High Sensitivity < 150 NG/ML
--- NOTE | 2023-07-24 22:38 | PC.NURSE ---
Pt medicated per jan. Plan of care ongoing.
--- NOTE | 2023-07-24 22:42 | MHC.EDTECH ---
Hourly rounds and vitals completed, temp is 100.4 orally,RN at bedside and is aware. call stephens within reach
[2023-07-24 22:53] LABS: Lactate Dehydrogenase 170 U/L (118-273)
[2023-07-24 23:35] VITALS: BP 101/40; PULSE 103; RESP 26; TEMP 37.3; O2SAT 91
--- NOTE | 2023-07-24 23:36 | PC.NURSE ---
Pt repositioned in bed. Hob elevated. Temp - 99.2 Plan of care ongoing.
--- NOTE | 2023-07-24 23:36 | MHC.EDTECH ---
Hourly rounds and vitals completed.Call stephens within reach
[2023-07-24 23:37] VITALS: O2SAT 91
--- NOTE | 2023-07-24 23:40 | PC.NURSE ---
Pt ca&ox4, no signs of distress. Pt denies pain. Pts at bedside. plan of care ongoing.
--- NOTE | 2023-07-24 23:48 | PC.NURSE ---
Hospitalist with pt. Stephen breen for pt to eat. plan of care ongoing.
--- NOTE | 2023-07-24 23:53 | PC.NURSE ---
Pt poc 123
[2023-07-24 23:55] LABS: Glucose, Whole Blood 123 mg/dL (60-115)
--- NOTE | 2023-07-25 00:36 | P.HPHOSP_ITS ---
History of Present Illness Date of Service: 07/25/23 Chief Complaint: positive covid 78-year-old male with past medical history of CAD status post stents, COPD, diabetes, MAYA, HTN, HLD, comes into the hospital with complaints of positive COVID test. He started having symptoms this morning, he woke up feeling significantly weak, has chills, slightly increased shortness of breath, has no increased cough or sputum production. And feeling overall ill. He reports no chest pain, no abdominal pain, no diarrhea constipation, no urinary symptoms and no lower extremity edema. Patient reports that he has slight we increased shortness of breath, he has been feeling significantly weak. On arrival to the ED patient noted to have hypoxia with an O2 88%, fever of 103.1, heart rate of 109, respiratory rate of 22 Labs are significant for WBC count of 8.0, COVID-19 positive Chest x-ray is limited but shows no abnormality Review of Systems 2 Review of Systems: Yes all other systems are reviewed and are negative [facility] Medical History Tracheobronchomalacia Pulmonary nodule COPD (chronic obstructive pulmonary disease) Migrated colon stent Diabetes Hospital-acquired pneumonia Pneumonia Nephrolithiasis Prostate cancer Obesity MAYA (obstructive sleep apnea) Right bundle branch block (RBBB) on electrocardiogram (ECG) Hyperlipidemia HTN (hypertension) Chronic stable angina CAD (coronary artery disease) Family History Father CVD (cardiovascular disease) Mother CVD (cardiovascular disease) Brother CVD (cardiovascular disease) Surgical History Hx of arthroscopy of knee Hx of lithotripsy Stented coronary artery Hx of cardiac cath Hx laparoscopic cholecystectomy History of basal cell carcinoma (BCC) excision History of carpal tunnel release Hx of hernia repair History of eye surgery Hx of spinal surgery Social History Household Members: Spouse Housing: House Do you presently have visiting nurse or other home services: No Alcohol intake: never Patient Tobacco Use Status: Former Tobacco user Quit Date: 2009 Tobacco use type: Cigarette Cigarette Packs Per Day: 1 Years Smoked: 30+ Smoked in Last 30 Days: No Use of substances other than those prescribed or required for medical reasons: No Advance Directives: No Advance Directives Information Provided: No Advance Directives Date on File: 07/17/21 service: No Current occupational status: retired Meds Allergies Allergy/AdvReac Type Severity Reaction Status Date / Time No Known Allergies Allergy Verified 07/24/23 20:36 Active Medications: Current Medications Acetaminophen (Acetaminophen 325 Mg Tablet) 650 mg PO Q6H PRN PRN Reason: Pain, Mild (Pain Scale 1-3) Docusate Sodium (Docusate Sodium 100 Mg Capsule) 100 mg PO DAILY PRN PRN Reason: Constipation Heparin Sodium (Porcine) (Heparin Sodium,Porcine 5,000 Unit/Ml Vial) 5,000 unit SUBCUT Q12H SALMA Ondansetron HCl (Ondansetron Hcl 4 Mg/2 Ml Vial) 4 mg IVPUSH Q8H PRN PRN Reason: Nausea and Vomiting Sodium Chloride (0.9 % Sodium Chloride Flush 3 Ml Syringe) 3 [facility] Medications Medication Instructions Recorded Confirmed Last Taken Type allopurinol 100 mg tablet 50 mg PO DAILY 09/16/20 07/25/23 1 Day Ago History ~07/24/23 lisinopril 10 mg tablet 10 mg PO DAILY 09/16/20 07/25/23 1 Day Ago History ~07/24/23 amlodipine 5 mg tablet 5 mg PO DAILY 02/20/22 07/25/23 1 Day Ago History ~07/24/23 aspirin 81 mg tablet,delayed 81 mg PO DAILY 03/20/22 07/25/23 1 Day Ago History release ~07/24/23 lorazepam 0.5 mg tablet 1 tab PO BEDTIME PRN Insomnia 03/20/22 03/23/23 03/19/22 History gabapentin 300 mg capsule 300 mg PO QID PRN Pain 07/13/22 07/25/23 07/13/22 History (Neurontin) cyclobenzaprine 10 mg tablet 10 mg PO BID PRN Pain 08/10/22 03/23/23 Unknown History metformin 500 mg tablet 250 mg PO BIDWM 09/17/22 07/25/23 1 Day Ago History ~07/24/23 ferrous sulfate 325 mg (65 mg 325 mg PO DAILY 06/02/23 Unknown History iron) tablet (FeroSul) mecobalamin (vitamin B12) 500 mcg mcg PO 06/02/23 Unknown History chewable tablet metoprolol succinate 50 mg 50 mg PO DAILY 07/25/23 07/25/23 1 Day Ago History tablet,extended release 24 hr ~07/24/23 omeprazole 20 mg capsule,delayed 20 mg PO BID 07/25/23 07/25/23 1 Day Ago History release ~07/24/23 Physical Exam 2 Vital Signs and Narrative: Vital Signs: Last Vital Signs Temp 99.2 F 07/24/23 23:35 Pulse 103 H 07/24/23 23:35 Resp 26 H 07/24/23 23:35 BP 101/40 L 07/24/23 23:35 Pulse Ox 91 L 07/24/23 23:37 O2 Del Method Nasal Cannula 07/24/23 23:37 O2 Flow Rate 2 07/24/23 23:35 Oxygen Flow Rate 2 07/24/23 23:37 BMI result Body Mass Index 36.0 Const: General: cooperative and no acute distress O rientation/consciousness: patient oriented x3 Eyes: General: appearance normal, both eyes and all related structures Resp: Other: Slight expiratory wheezing Effort & Inspection: normal respiratory effort Cardio: Rate: regular rate Rhythm: regular rhythm GI: Palpation (GI): Soft to palpation Auscultation: normal bowel sounds Skin: General skin exam: no rashes or lesions noted Neuro: General: patient oriented x3 Cognition (Neuro): normal cognition Extrem: General: Yes normal to inspection and Yes no pedal edema Results Labs 07/24/23 21:38 07/24/23 21:38 Labs: Laboratory Results - last 24 hr 07/24/23 07/24/23 21:38 23:51 MCV 80.9 MCH 24.5 L MCHC 30.2 L RDW 21.7 H Plt Count 168 D MPV 10.0 Immature Gran % (Auto) 0.3 Neut % (Auto) 80.8 H Lymph % (Auto) 7.5 L [place] % (Auto) 10.0 Eos % (Auto) 1.3 Baso % (Auto) 0.1 Lymph # (Auto) 0.6 L [place] # (Auto) 0.8 Eos # (Auto) 0.1 Baso # (Auto) 0.0 Abs Immat Gran (auto) 0.02 Absolute Neuts (auto) 6.4 Absolute Nucleated RBC 0.000 Nucleated RBC % (auto) 0.0 D-Dimer High Sensitivty < 150 Anion Gap 13 Estim Creat Clear Calc 63.0 Estimated GFR 58 POC Glucose 123 H Random Glucose 114 Lactic Acid 1.2 Calcium 8.6 Ferritin 13 L Total Bilirubin 0.4 AST 20 ALT 12 Alkaline Phosphatase 99 Lactate Dehydrogenase 170 Total Protein 6.4 L Albumin 3.7 Procalcitonin 0.08 Influenza Type A (PCR) NEGATIVE Influenza Type B (PCR) NEGATIVE RSV RNA Qual (PCR) NEGATIVE SARS-CoV-2 RNA (RT-PCR) POSITIVE A Imaging Radiologist's Impressions: Impressions Chest X-Ray 07/24/23 21:16 IMPRESSION: Low lung volume slightly limits evaluation. There is no current evidence for active cardiopulmonary disease. Assessment and Plan (1) Acute respiratory failure with hypoxia: Status: Acute (2) COVID-19 virus infection: Status: Acute (3) Sepsis: Qualifiers: Sepsis type: sepsis due to unspecified organism Sepsis acute organ dysfunction status: without acute organ dysfunction Qualified Code(s): A41.9 - Sepsis, unspecified organism Status: Acute Plan [age]-year-old male with past medical history of COPD presents the hospital stating that he tested positive with COVID home found to have acute COVID hypoxia # acute hypoxic respiratory failure - likely secondary to COVID infection - no evidence of acute pneumonia on x-ray - satting 88% on room air - has no increased cough or sputum production - will treat with dexamethasone, O2 as required, with O2 goal of 92% given his history of COPD - monitor respiratory status # COVID-19 infection - Given hypoxia was started on dexamethasone - patient symptoms started today therefore benefits from remdesivir - will consult ID from the severe - monitor respiratory status # sepsis - meets sepsis criteria with tachycardia, tachypnea, febrile, - secondary to COVID infection - no evidence of pneumonia - will hold off antibiotics at this time # CAD status post stent 2 years ago - no chest pain - continue aspirin, metoprolol # hypertension -= stable - continue antihypertensives # diabetes ]- hold metformin - place on low-dose sliding scale insulin - diabetic diet DVT prophylaxis: Heparin subQ Given need for oxygen, and management of acute hypoxia patient require minimum 2 night inpatient hospital stay for further management and monitor Time Spent With Patient Time: Total time managing care of this patient today ____ minutes. Quality Stroke Does the patient have a stroke diagnosis?: No VTE Prior VTE?: No VTE Risk Level:: Medical - moderate - high VTE Device Contraindication: Treatment Not Indicated VTE Drug Contraindication: N/A - Med Ordered
[2023-07-25] MEDS: Heparin Sodium,Porcine 5,000 UNIT/ML VIAL 5000 UNIT SUBCUT ×2 (00:53→14:18)
--- NOTE | 2023-07-25 00:57 | PC.NURSE ---
Pt med per mar. pts remains at bedside plan of care ongoing.
[2023-07-25 01:24] LABS: B Type Natriuretic Peptide 18 pg/mL (<100)
[2023-07-25 01:56] VITALS: BP 109/48; PULSE 89; RESP 21; TEMP 36.7; O2SAT 91
--- NOTE | 2023-07-25 01:58 | PC.NURSE ---
Hospitalist made aware of b/p 109/48.
[2023-07-25 04:48] VITALS: BP 104/47; PULSE 79; RESP 20; TEMP 36.6; O2SAT 92
--- NOTE | 2023-07-25 04:49 | MHC.EDTECH ---
Hourly rounds and vitals completed, blood pressure low at 104/47 RN is aware and at bedside. Patient urinated 500cc in urinal.call stephens within reach
[2023-07-25 05:41] LABS: MANUAL DIFF FLAG NO
[2023-07-25 05:47] LABS: Basophils Percent Auto 0.3 % (0-2); Hematocrit 41.4 % (42.0-52.0); Hemoglobin 12.4 g/dl (14.0-18.0); Imm Gran Abs Auto 0.01 X10*3/uL (0.00-0.03); Imm Gran Pct Auto 0.2 % (0.0-0.4); Lymphocytes Absolute Auto 0.5 X10*3/uL (1.2-4.9); Lymphocytes Percent Auto 8.1 % (20-40); Mean Corpuscular Hemoglobin 24.6 pg (27.0-33.0); Mean Platelet Volume 9.9 fL (9.4-12.4); Monocytes Absolute Auto 0.3 X10*3/uL (0.1-1.2); Monocytes Percent Auto 4.1 % (2-11); Neutrophils Absolute Auto 5.8 x10*3/uL (2.0-8.3); Neutrophils Percent Auto 87.3 % (45-73); Platelet Count 158 X10*3/uL (160-400); Red Blood Count 5.05 X10*6/uL (4.60-5.80); Red Cell Distribution Width 21.9 % (11.0-16.0); White Blood Count 6.7 X10*3/uL (4.8-10.8)
[2023-07-25 05:58] LABS: Alanine Aminotransferase 13 U/L (0-40); Albumin Level 3.5 g/dL (3.5-5.0); Alkaline Phosphatase 87 U/L (39-117); Anion Gap 13 (12-20); Aspartate Amino Transferase 18 U/L (5-37); Bilirubin Total 0.3 mg/dL (0.0-1.0); Blood Urea Nitrogen 33 mg/dL (9-16); Calcium 8.8 mg/dL (8.4-10.2); Carbon Dioxide 23 mmol/L (22-29); Chloride 107 mmol/L (96-108); Creatinine Clr Calc Pharmacy 56.4; Estimated Glomerular Filt Rate 51; Glucose Random 213 mg/dL (60-115); Potassium 5.1 mmol/L (3.3-5.1); Sodium 138 mmol/L (135-145); Total Protein 6.1 g/dL (6.5-8.0)
--- NOTE | 2023-07-25 06:31 | MHC.EDTECH ---
Hourly rounds completed, patient has a room assigned awaiting for nurse to give report
[2023-07-25 07:59] VITALS: BP 118/57; PULSE 76; RESP 20; TEMP 36.6; O2SAT 95
[2023-07-25 08:17] LABS: Glucose, Whole Blood 196 mg/dL (60-115)
--- NOTE | 2023-07-25 08:35 | PHA.MEDREC ---
Pharmacy Consult ? Medication Reconciliation Pharmacy has completed the medication reconciliation.
[2023-07-25] MEDS: dexAMETHasone sod phosphate 4 MG/ML VIAL 6 MG IVPUSH (10:49)
[2023-07-25] MEDS: Insulin Lispro 100 UNIT/ML 3 ML VIAL SUBCUT ×4 (10:50→20:59)
[2023-07-25] MEDS: Aspirin Enteric Coated 81 MG TABLET.DR PO (10:50)
[2023-07-25] MEDS: Metoprolol Succinate ER 50 MG TAB.ER.24H PO (10:50)
[2023-07-25] MEDS: allopurinoL 100 MG TABLET PO (10:50)
[2023-07-25] MEDS: Omeprazole 20 MG CAPSULE.DR PO (10:50)
[2023-07-25] MEDS: 0.9 % Sodium Chloride Flush 3 ML SYRINGE IVFLUSH ×2 (10:52→16:03)
[2023-07-25 11:03] LABS: Glucose, Whole Blood 203 mg/dL (60-115)
[2023-07-25 11:26] VITALS: BP 142/71; PULSE 89; RESP 20; TEMP 36.8; O2SAT 96
[2023-07-25] MEDS: Remdesivir 200 MG in 0.9 % Sodium Chloride 210 ML 105 MG IV (11:49)
--- NOTE | 2023-07-25 13:28 | P.EN_ITS ---
Event Note Date of Service: 07/25/23 Event Note: 78-year-old gentleman with history of coronary artery disease status post stent, COPD, diabetes, hypertension, obstructive sleep apnea came to [facility] due to symptoms of weakness, chills shortness of breath and COVID positive test at home, in emergency room patient was noted to be hypoxic not on home O2 On arrival to the ED patient noted to have hypoxia with an O2 88%, fever of 103.1, heart rate of 109, respiratory rate of 22 Labs are significant for WBC count of 8.0, COVID-19 positive Chest x-ray is limited but shows no abnormality At present resting comfortably noted to have intermittent cough # acute hypoxic respiratory failure likely secondary to COVID infection - no evidence of acute pneumonia on x-ray - satting 88% on room air, placed on oxygen - continue IV dexamethasone 6 mg daily 1, start remdesivir a x3 days continue supportive care with cough medication wean oxygen as tolerated - ID consult - monitor respiratory status # sepsis - meets sepsis criteria with tachycardia, tachypnea, febrile, secondary to COVID infection - no evidence of pneumonia,hold off antibiotics at this time # CAD status post stent 2 years ago - no chest pain - continue aspirin, metoprolol and Lipitor # hypertension soft blood pressure on admission resume metoprolol, hold Norvasc and lisinopril follow BP closely # diabetes - hold metformin, continue sliding scale insulin, diabetic diet, elevated blood sugars likely due to steroids DVT prophylaxis: Heparin subQ Time Spent With Patient Time: Total time managing care of this patient today ____ minutes.
[2023-07-25 15:20] VITALS: BP 122/56; PULSE 83; RESP 18; TEMP 36.7; O2SAT 94
[2023-07-25 15:55] LABS: Glucose, Whole Blood 290 mg/dL (60-115)
[2023-07-25] MEDS: Acetaminophen 325 MG TABLET 650 MG PO (16:09)
[2023-07-25 19:46] VITALS: BP 133/64; PULSE 79; RESP 18; TEMP 37.1; O2SAT 94
[2023-07-25 20:14] LABS: Glucose, Whole Blood 169 mg/dL (60-115)
[2023-07-25] MEDS: Atorvastatin Calcium 40 MG TABLET PO (20:59)
[2023-07-25] MEDS: LORazepam 0.5 MG TABLET PO (20:59)
[2023-07-26] VITALS (8 sets, daily range): BP systolic 125–170; BP diastolic 58–77; PULSE 56–92; RESP 18–20; TEMP 36.1–37.6; O2SAT 93–97
[2023-07-26] MEDS: 0.9 % Sodium Chloride Flush 3 ML SYRINGE IVFLUSH ×4 (00:36→21:23)
[2023-07-26] MEDS: Heparin Sodium,Porcine 5,000 UNIT/ML VIAL 5000 UNIT SUBCUT ×2 (00:36→11:47)
[2023-07-26 07:39] LABS: Glucose, Whole Blood 153 mg/dL (60-115)
[2023-07-26] MEDS: dexAMETHasone sod phosphate 4 MG/ML VIAL 6 MG IVPUSH (07:59)
[2023-07-26] MEDS: allopurinoL 100 MG TABLET PO (08:00)
[2023-07-26] MEDS: Cyanocobalamin (Vitamin B-12) 1,000 MCG TABLET 1000 MCG PO (08:00)
[2023-07-26] MEDS: Metoprolol Succinate ER 50 MG TAB.ER.24H PO (08:00)
[2023-07-26] MEDS: Aspirin Enteric Coated 81 MG TABLET.DR PO (08:00)
[2023-07-26] MEDS: Insulin Lispro 100 UNIT/ML 3 ML VIAL SUBCUT ×4 (08:01→21:13)
[2023-07-26] MEDS: Remdesivir 100 MG in 0.9 % Sodium Chloride 230 ML 115 MG IV (09:35)
[2023-07-26 11:22] LABS: Glucose, Whole Blood 182 mg/dL (60-115)
--- NOTE | 2023-07-26 12:13 | MHC.CM.PN ---
PT ADMITTED, COVID + CM CALLED PTS CELL [phone] PT CONFIRMS HE LIVES WITH HIS PARTNER OF MANY YEARS, ROSAURA HE DENIES HAVING ANY SERVICES HE HAS A CANE HE SAYS HE HAS BEEN USING RECENTLY HE ALSO HAS A NEBULIZER HE DENIES USING RECENTLY HE HAS A HCP ON FILE PCP: CARINE TODD IMM DELIVERED, COPY WILL BE MAILED TO PTS HOME DCP: HOME NO SERVICES VIA PRIVATE TRANSPORT
--- NOTE | 2023-07-26 12:17 | P.PNIM_ITS ---
Subjective Subjective Date of Service: 07/26/23 Interval History: weaned off oxygen overnight no chest pain dyspneic but improving no wheezing c/o foot/ankle swelling bilaterally Review of Systems Review of Systems: Yes all other systems are reviewed and are negative Physical Exam 2 Vital Signs: Vital Signs: Last Vital Signs Temp 97.0 F 07/26/23 11:17 Pulse 65 07/26/23 11:17 Resp 20 07/26/23 11:17 BP 153/73 H 07/26/23 11:17 Pulse Ox 94 07/26/23 11:17 O2 Del Method Room Air 07/26/23 11:17 O2 Flow Rate 2 07/25/23 15:20 Oxygen Flow Rate 2 07/24/23 23:37 BMI result Body Mass Index 36.0 Gen: in no acute distress, coughing HEENT: sclera anicteric, moist mucus membranes Neck: supple Lungs: clear to auscultation bilaterally Heart: regular rate and rhythm, no murmurs Abd: soft, non-tender, non-distended Ext: 2+ pedal edema bilaterally Skin: warm/well-perfused Neuro: alert and oriented x3, no focal findings Psych: appropriate affect Objective Data Active Medications Acetaminophen (Acetaminophen 325 Mg Tablet) 650 mg PO Q6H PRN PRN Reason: Pain, Mild (Pain Scale 1-3) Last Admin: 07/25/23 16:09 Dose: 650 mg Documented By: KERRY Albuterol/Ipratropium (Albuterol/Iprat 2.5/0.5mg 3 Ml Ampul.Neb) 3 ml INHALE RQ4H PRN PRN Reason: Shortness of Breath/Wheezing Allopurinol (Allopurinol 100 Mg Tablet) 100 mg PO DAILY [facility] Last Admin: 07/26/23 08:00 Dose: 100 mg Documented By: GONZALES Aspirin (Aspirin Enteric Coated 81 Mg Tablet.) 81 mg PO DAILY [facility] Last Admin: 07/26/23 08:00 Dose: 81 mg Documented By: GONZALES Atorvastatin Calcium (Atorvastatin Calcium 40 Mg Tablet) 40 mg PO BEDTIME [facility] Last Admin: 07/25/23 20:59 Dose: 40 mg Documented By: KERRY Cyanocobalamin (Cyanocobalamin (Vitamin B-12) 1,000 Mcg Tablet) 1,000 mcg PO DAILY [facility] Last Admin: 07/26/23 08:00 Dose: 1,000 mcg Documented By: GONZALES Dexamethasone Sodium Phosphate (Dexamethasone Sod Phosphate 4 Mg/Ml Vial) 6 mg IVPUSH DAILY [facility] Last Admin: 07/26/23 07:59 Dose: 6 mg Documented By: GONZALES Dextrose (Dextrose 50 % 25 Gm/50 Ml Syringe) 25 gm IVPUSH Q15M PRN; Protocol PRN Reason: per Hypoglycemia Standing Ord. Docusate Sodium (Docusate Sodium 100 Mg Capsule) 100 mg PO DAILY PRN PRN Reason: Constipation Glucose (Glucose Gel 15 Gm Gel..Gram.) 15 gm PO Q15M PRN; Protocol PRN Reason: per Hypoglycemia Standing Ord. Heparin Sodium (Porcine) (Heparin Sodium,Porcine 5,000 Unit/Ml Vial) 5,000 unit SUBCUT Q12H [facility] Last Admin: 07/26/23 11:47 Dose: 5,000 unit Documented By: GONZALES Remdesivir 100 mg/ Sodium (Chloride) 230 mls @ 115 mls/hr IV Q24H [facility] Stop: 07/27/23 10:59 Last Infusion: 07/26/23 11:35 Dose: Infused Documented By: GONZALES Insulin Human Lispro (Insulin Lispro 100 Unit/Ml 3 Ml Vial) 0 unit SUBCUT QIDACHS [facility]; Protocol Last Admin: 07/26/23 11:45 Dose: 2 unit Documented By: GONZALES Lorazepam (Lorazepam 0.5 Mg Tablet) 0.5 mg PO BEDTIME PRN PRN Reason: Insomnia Last Admin: 07/25/23 20:59 Dose: 0.5 mg Documented By: KERRY Metoprolol Succinate (Metoprolol Succinate Er 50 Mg Tab.Er.24h) 50 mg PO DAILY [facility]; Protocol Last Admin: 07/26/23 08:00 Dose: 50 mg Documented By: GONZALES Nitroglycerin (Nitroglycerin 0.4 Mg Tab.Subl) 0.4 mg SUBLINGUAL Q5M PRN PRN Reason: Chest Pain Omeprazole (Omeprazole 20 Mg Capsule.Dr) 20 mg PO DAILY@0630 [facility] Last Admin: 07/26/23 06:16 Dose: Not Given Documented By: ANTWAN Non-Admin Reason: Patient Refused Ondansetron HCl (Ondansetron Hcl 4 Mg/2 Ml Vial) 4 mg IVPUSH Q8H PRN PRN Reason: Nausea and Vomiting Sodium Chloride (0.9 % Sodium Chloride Flush 3 Ml Syringe) [facility] Last Admin: 07/26/23 11:47 Dose: 3 ml Documented By: GONZALES Labs 07/25/23 05:36 07/25/23 05:36 Labs: Laboratory Results - last 24 hr 07/25/23 07/25/23 07/26/23 15:21 19:44 07:35 POC Glucose 290 H 169 H 153 H 07/26/23 11:16 POC Glucose 182 H Microbiology Microbiology Results: Microbiology 07/24/23 22:24 Blood Culture - Preliminary Blood - Venous No growth after 24 hours. 07/24/23 21:38 Blood Culture - Preliminary Blood - Venous No growth after 24 hours. Assessment and Plan (1) COVID-19 virus infection: Status: Acute Plan d2 78yo M with CAD s/p PCI, COPD, DM2, HTN, MAYA presenting with weakness + dyspnea, admitted for hypoxia due to Covid-19 infection acute hypoxic respiratory failure due to Covid-19 infection - weaned off O2 - continue remdesivir d2/3, dexamethasone d2/10 - ID consult pending viral sepsis - no evidence of bacterial infection leg edema - check TTE + BNP CAD - continue ASA, atorvastatin, metoprolol HTN - continue metoprolol; holding lisinopril + amlodipine due to soft BP on admission DM2 - correction-dose lispro, DM diet, hold MTF VTE ppx - UFH dispo - anticipate home In my clinical judgment, the patient requires continued inpatient hospitalization for the following reasons: Covid-19 infection Time Spent With Patient Time: Total time managing care of this patient today _45___ minutes. Quality Stroke Does the patient have a stroke diagnosis?: No VTE Prior VTE?: No VTE Risk Level:: Medical - moderate - high VTE Device Contraindication: Treatment Not Indicated VTE Drug Contraindication: N/A - Med Ordered
--- NOTE | 2023-07-26 16:12 | W.PM.IDCN ---
History of Present Illness Data of Consult Service Date: 07/26/23 Requesting physician: Marina Galaviz Primary Care Provider: Jaxon Coffman MD [facility] Reason for consult: COVID positive He presents with three days cough and chills and shortness of breath. He has COVID positivity and is alternating between 2 l and RA. He is now 95% on room air. Review of Systems Review of Systems: Yes all other systems are reviewed and are negative PMFSH Past Medical History Medical History Tracheobronchomalacia Pulmonary nodule COPD (chronic obstructive pulmonary disease) Migrated colon stent Diabetes Hospital-acquired pneumonia Pneumonia Nephrolithiasis Prostate cancer Obesity MAYA (obstructive sleep apnea) Right bundle branch block (RBBB) on electrocardiogram (ECG) Hyperlipidemia HTN (hypertension) Chronic stable angina CAD (coronary artery disease) Family History Family History Father CVD (cardiovascular disease) Mother CVD (cardiovascular disease) Brother CVD (cardiovascular disease) Family history: reviewed and not pertinent Surgical History Surgical History Hx of arthroscopy of knee Hx of lithotripsy Stented coronary artery Hx of cardiac cath Hx laparoscopic cholecystectomy History of basal cell carcinoma (BCC) excision History of carpal tunnel release Hx of hernia repair History of eye surgery Hx of spinal surgery Social History Social History Household Members: Spouse Housing: House Do you presently have visiting nurse or other home services: No Alcohol intake: never Patient Tobacco Use Status: Former Tobacco user Quit Date: 2009 Tobacco use type: Cigarette Cigarette Packs Per Day: 1 Years Smoked: 30+ Smoked in Last 30 Days: No Patient Interested in Nicotine Replacement: No Patient Given Instructions on How to Stop Smoking: No Use of substances other than those prescribed or required for medical reasons: No Currently Displaying Signs/Symptoms of Drug Intoxication Withdrawal: No Any prior treatment program specific to substance use: No Have you been hit, kicked, punched, or otherwise hurt by someone within the past year? If so, by whom?: No Do you feel safe in your current relationship?: Yes Is there a partner from a previous relationship who is making you feel unsafe now?: No Are you made to feel afraid or neglected: No Advance Directives: No Advance Directives Information Provided: No Advance Directives Date on File: 07/17/21 Do you have thoughts of harming others: None Do you have a plan to hurt others: No Plan Recently lost weight without trying: No Eating poorly because of decreased appetite: No Nutrition Risks: No Nutritional Risk Poor oral hygiene: No service: No Current occupational status: retired Meds Allergies Allergy/AdvReac Type Severity Reaction Status Date / Time No Known Allergies Allergy Verified 07/24/23 20:36 Active Medications: Current Medications Acetaminophen (Acetaminophen 325 Mg Tablet) 650 mg PO Q6H PRN PRN Reason: Pain, Mild (Pain Scale 1-3) Last Admin: 07/25/23 16:09 Dose: 650 mg Albuterol/Ipratropium (Albuterol/Iprat 2.5/0.5mg 3 Ml Ampul.Neb) 3 ml INHALE RQ4H PRN PRN Reason: Shortness of Breath/Wheezing Allopurinol (Allopurinol 100 Mg Tablet) 100 mg PO DAILY [facility] Last Admin: 07/26/23 08:00 Dose: 100 mg Aspirin (Aspirin Enteric Coated 81 Mg Tablet.) 81 mg PO DAILY [facility] Last Admin: 07/26/23 08:00 Dose: 81 mg Atorvastatin Calcium (Atorvastatin Calcium 40 Mg Tablet) 40 mg PO BEDTIME [facility] Last Admin: 07/25/23 20:59 Dose: 40 mg Cyanocobalamin (Cyanocobalamin (Vitamin B-12) 1,000 Mcg Tablet) 1,000 mcg PO DAILY [facility] Last Admin: 07/26/23 08:00 Dose: 1,000 mcg Dexamethasone Sodium Phosphate (Dexamethasone Sod Phosphate 4 Mg/Ml Vial) 6 mg IVPUSH DAILY [facility] Last Admin: 07/26/23 07:59 Dose: 6 mg Dextrose (Dextrose 50 % 25 Gm/50 Ml Syringe) 25 gm IVPUSH Q15M PRN; Protocol PRN Reason: per Hypoglycemia Standing Ord. Docusate Sodium (Docusate Sodium 100 Mg Capsule) 100 mg PO DAILY PRN PRN Reason: Constipation Glucose (Glucose Gel 15 Gm Gel..Gram.) 15 gm PO Q15M PRN; Protocol PRN Reason: per Hypoglycemia Standing Ord. Heparin Sodium (Porcine) (Heparin Sodium,Porcine 5,000 Unit/Ml Vial) 5,000 unit SUBCUT Q12H [facility] Last Admin: 07/26/23 11:47 Dose: 5,000 unit Remdesivir 100 mg/ Sodium (Chloride) 230 mls @ 115 mls/hr IV Q24H [facility] Stop: 07/27/23 10:59 Last Infusion: 07/26/23 11:35 Dose: Infused Insulin Human Lispro (Insulin Lispro 100 Unit/Ml 3 Ml Vial) 0 unit SUBCUT QIDACHS [facility]; Protocol Last Admin: 07/26/23 11:45 Dose: 2 unit Lorazepam (Lorazepam 0.5 Mg Tablet) 0.5 mg PO BEDTIME PRN PRN Reason: Insomnia Last Admin: 07/25/23 20:59 Dose: 0.5 mg Metoprolol Succinate (Metoprolol Succinate Er 50 Mg Tab.Er.24h) 50 mg PO DAILY [facility]; Protocol Last Admin: 07/26/23 08:00 Dose: 50 mg Nitroglycerin (Nitroglycerin 0.4 Mg Tab.Subl) 0.4 mg SUBLINGUAL Q5M PRN PRN Reason: Chest Pain Omeprazole (Omeprazole 20 Mg Capsule.Dr) 20 mg PO DAILY@0630 [facility] Last Admin: 07/26/23 06:16 Dose: Not Given Ondansetron HCl (Ondansetron Hcl 4 Mg/2 Ml Vial) 4 mg IVPUSH Q8H PRN PRN Reason: Nausea and Vomiting Sodium Chloride (0.9 % Sodium Chloride Flush 3 Ml Syringe) 3 ml IVFLUSH QSHIFT [facility] Last Admin: 07/26/23 11:47 Dose: 3 ml Home Medications Medication Instructions Recorded Confirmed Last Taken Type allopurinol 100 mg tablet 100 mg PO DAILY 09/16/20 07/25/23 1 Day Ago History ~07/24/23 lisinopril 10 mg tablet 10 mg PO DAILY 09/16/20 07/25/23 1 Day Ago History ~07/24/23 amlodipine 5 mg tablet 5 mg PO DAILY 02/20/22 07/25/23 1 Day Ago History ~07/24/23 aspirin 81 mg tablet,delayed 81 mg PO DAILY 03/20/22 07/25/23 1 Day Ago History release ~07/24/23 lorazepam 0.5 mg tablet 1 tab PO BEDTIME PRN Insomnia 03/20/22 07/25/23 03/19/22 History gabapentin 300 mg capsule 300 mg PO QID PRN Pain 07/13/22 07/25/23 07/13/22 History (Neurontin) metformin 500 mg tablet 250 mg PO BIDWM 09/17/22 07/25/23 1 Day Ago History ~07/24/23 atorvastatin 40 mg tablet 40 mg PO BEDTIME 07/25/23 07/25/23 Unknown History cyanocobalamin (vitamin B-12) 1,000 mcg PO DAILY 07/25/23 07/25/23 1 Day Ago History 1,000 mcg tablet ~07/24/23 metoprolol succinate 50 mg 50 mg PO DAILY 07/25/23 07/25/23 1 Day Ago History tablet,extended release 24 hr ~07/24/23 Physical Exam Vital Signs: Vital Signs: Last Vital Signs Temp 99.7 F 07/26/23 16:00 Pulse 67 07/26/23 16:00 Resp 20 07/26/23 16:00 BP 170/77 H 07/26/23 16:00 Pulse Ox 95 07/26/23 16:00 O2 Del Method Room Air 07/26/23 16:00 O2 Flow Rate 2 07/25/23 15:20 Oxygen Flow Rate 2 07/24/23 23:37 BMI result Body Mass Index 36.0 Const: General: cooperative HEENT: Head: Yes normal to inspection Teeth and gingiva: dentition normal Resp: Effort & Inspection: able to speak in complete sentences Cardio: Rate: regular rate Rhythm: regular rhythm Results Labs 07/25/23 05:36 07/25/23 05:36 Microbiology Microbiology Results: Microbiology 07/24/23 22:24 Blood - Venous Blood Culture - Preliminary No growth after 24 hours. 07/24/23 21:38 Blood - Venous Blood Culture - Preliminary No growth after 24 hours. Assessment and Plan (1) COVID-19 virus infection: Status: Acute He has recent COVID infection. He is improving. (2) Hypoxia: Status: Acute Plan Dexamethasone 6 mg daily. Stop Dex when no longer hypoxic,as looks not hypoxic now. Time Spent With Patient Time: Total time managing care of this patient today ____ minutes.
[2023-07-26 16:56] LABS: Glucose, Whole Blood 207 mg/dL (60-115)
[2023-07-26 20:53] LABS: Glucose, Whole Blood 165 mg/dL (60-115)
[2023-07-26] MEDS: Atorvastatin Calcium 40 MG TABLET PO (21:12)
[2023-07-26] MEDS: LORazepam 0.5 MG TABLET PO (21:12)
[2023-07-27] MEDS: Heparin Sodium,Porcine 5,000 UNIT/ML VIAL 5000 UNIT SUBCUT (00:34)
[2023-07-27 03:02] VITALS: BP 133/63; PULSE 56; RESP 20; TEMP 36.4; O2SAT 93
[2023-07-27 06:34] LABS: Hematocrit 41.4 % (42.0-52.0); Hemoglobin 12.7 g/dl (14.0-18.0); Mean Corpuscular HGB Conc 30.7 g/dl (31.0-36.0); Mean Corpuscular Volume 81.3 fL (80.0-98.0); Mean Platelet Volume 10.4 fL (9.4-12.4); Platelet Count 185 X10*3/uL (160-400); Red Blood Count 5.09 X10*6/uL (4.60-5.80); Red Cell Distribution Width 22.2 % (11.0-16.0); White Blood Count 12.8 X10*3/uL (4.8-10.8)
[2023-07-27 06:47] LABS: Alanine Aminotransferase 14 U/L (0-40); Albumin Level 3.3 g/dL (3.5-5.0); Alkaline Phosphatase 77 U/L (39-117); Anion Gap 13 (12-20); Aspartate Amino Transferase 25 U/L (5-37); Bilirubin Total 0.3 mg/dL (0.0-1.0); Blood Urea Nitrogen 31 mg/dL (9-16); C Reactive Protein 1.55 mg/dL (< or = 0.50); Calcium 8.7 mg/dL (8.4-10.2); Carbon Dioxide 24 mmol/L (22-29); Chloride 108 mmol/L (96-108); Estimated Glomerular Filt Rate > 60; Glucose Random 142 mg/dL (60-115); Potassium 5.1 mmol/L (3.3-5.1); Sodium 140 mmol/L (135-145); Total Protein 6.1 g/dL (6.5-8.0)
[2023-07-27 06:48] LABS: B Type Natriuretic Peptide 71 pg/mL (<100)
[2023-07-27 07:50] LABS: Glucose, Whole Blood 120 mg/dL (60-115)
[2023-07-27 07:55] VITALS: BP 170/72; PULSE 70; RESP 18; TEMP 36.6; O2SAT 95
[2023-07-27] MEDS: dexAMETHasone sod phosphate 4 MG/ML VIAL 6 MG IVPUSH (08:54)
[2023-07-27] MEDS: allopurinoL 100 MG TABLET PO (08:57)
[2023-07-27] MEDS: Cyanocobalamin (Vitamin B-12) 1,000 MCG TABLET 1000 MCG PO (08:57)
[2023-07-27] MEDS: Metoprolol Succinate ER 50 MG TAB.ER.24H PO (08:57)
[2023-07-27] MEDS: Aspirin Enteric Coated 81 MG TABLET.DR PO (08:57)
[2023-07-27] MEDS: 0.9 % Sodium Chloride Flush 3 ML SYRINGE IVFLUSH (08:58)
[2023-07-27] MEDS: Remdesivir 100 MG in 0.9 % Sodium Chloride 230 ML 115 MG IV (08:59)
--- NOTE | 2023-07-27 10:25 | MHC.CM.PN ---
PT MEDICALLY CLEARED FOR D/C HOME SELF CARE, S.O. FOR TRANSPORT.
[2023-07-27 10:35] VITALS: PULSE 101; PULSE 106; PULSE 84; PULSE 94; O2SAT 91; O2SAT 92; O2SAT 93; O2SAT 95
[2023-07-27 11:38] VITALS: BP 154/74; PULSE 65; RESP 18; TEMP 36.4; O2SAT 95
[2023-07-27 11:44] LABS: Glucose, Whole Blood 231 mg/dL (60-115)
--- NOTE | 2023-07-27 12:12 | P.DS_ITS ---
DS: Providers Provider Date of Service: 07/27/23 Date of admission: 07/25/23 01:59 Date of discharge: 07/27/23 Primary care physician: Jaxon Coffman MD Consults: 07/25/23 01:02 Consult to Infectious Diseases Routine Consulting Provider: [facility] Reason for consultation: COVID-19 infection, x1 day Has provider been notified: No DS: Diagnosis Discharge Diagnosis (1) COVID-19 virus infection: Status: Acute (2) Hypoxia: Status: Acute (3) Viral sepsis: Status: Acute DS: Summary Hospital Course Hospital Course: from admission H+P by hospitalist Amarilis Cabrera MD, 07/25/23: 78-year-old male with past medical history of CAD status post stents, COPD, diabetes, MAYA, HTN, HLD, comes into the hospital with complaints of positive COVID test. He started having symptoms this morning, he woke up feeling significantly weak, has chills, slightly increased shortness of breath, has no increased cough or sputum production. And feeling overall ill. He reports no chest pain, no abdominal pain, no diarrhea constipation, no urinary symptoms and no lower extremity edema. Patient reports that he has slight we increased shortness of breath, he has been feeling significantly weak. On arrival to the ED patient noted to have hypoxia with an O2 88%, fever of 103.1, heart rate of 109, respiratory rate of 22 Labs are significant for WBC count of 8.0, COVID-19 positive Chest x-ray is limited but shows no abnormality 78yo M with CAD s/p PCI, COPD, DM2, HTN, MAYA; presenting with weakness + dyspnea; admitted to the [facility] on isolation for hypoxia due to Covid-19 infection. He was weaned off oxygen on hospital d2. He was treated with 3 days of IV remdesivir and 3 days of IV dexamethasone. His symptoms of fever and dyspnea resolved. There was no evidence of bacterial infection. He was discharged home with 7 days of PO dexamethasone and should be isolated for 7 days. Afterwards, he should resume cardiac rehabilitation as an outpatient. Time Spent with Patient Time attestation: Total time managing care of this patient today __45__ minutes. Discharge coordination time: Greater than 30 minutes Quality: Safe Use of Opioids Does Pt have an Active Cancer Diagnosis on the Problem List?: No Quality: Stroke Does the patient have a stroke diagnosis?: No Physical Exam Vital Signs: Vital Signs: Last Vital Signs Temp 97.5 F 07/27/23 11:38 Pulse 65 07/27/23 11:38 Resp 18 07/27/23 11:38 BP 154/74 H 07/27/23 11:38 Pulse Ox 95 07/27/23 11:38 O2 Del Method Room Air 07/27/23 11:38 O2 Flow Rate 1 07/26/23 23:55 Oxygen Flow Rate 2 07/24/23 23:37 BMI result Body Mass Index 36.0 Gen: in no acute distress HEENT: sclera anicteric, moist mucus membranes Neck: supple Lungs: clear to auscultation bilaterally Heart: regular rate and rhythm, no murmurs Abd: soft, non-tender, non-distended Ext: no edema Skin: warm/well-perfused Neuro: alert and oriented x3, no focal findings Psych: appropriate affect DS: Data Data Completed and Pending Completed studies during hospitalization [Text1]: Laboratory Results WBC 12.8 X10*3/uL (4.8-10.8) H 07/27/23 06:20 RBC 5.09 X10*6/uL (4.60-5.80) 07/27/23 06:20 Hgb 12.7 g/dl (14.0-18.0) L 07/27/23 06:20 Hct 41.4 % (42.0-52.0) L 07/27/23 06:20 MCV 81.3 fL (80.0-98.0) 07/27/23 06:20 MCH 25.0 pg (27.0-33.0) L 07/27/23 06:20 MCHC 30.7 g/dl (31.0-36.0) L 07/27/23 06:20 RDW 22.2 % (11.0-16.0) H 07/27/23 06:20 Plt Count 185 X10*3/uL (160-400) 07/27/23 06:20 MPV 10.4 fL (9.4-12.4) 07/27/23 06:20 Immature Gran % (Auto) 0.2 % (0.0-0.4) 07/25/23 05:36 Neut % (Auto) 87.3 % (45-73) H 07/25/23 05:36 Lymph % (Auto) 8.1 % (20-40) L 07/25/23 05:36 [place] % (Auto) 4.1 % (2-11) 07/25/23 05:36 Eos % (Auto) 0.0 % (0-4) 07/25/23 05:36 Baso % (Auto) 0.3 % (0-2) 07/25/23 05:36 Lymph # (Auto) 0.5 X10*3/uL (1.2-4.9) L 07/25/23 05:36 [place] # (Auto) 0.3 X10*3/uL (0.1-1.2) 07/25/23 05:36 Eos # (Auto) 0.0 X10*3/uL (0.0-0.4) 07/25/23 05:36 Baso # (Auto) 0.0 X10*3/uL (0.0-0.2) 07/25/23 05:36 Abs Immat Gran (auto) 0.01 X10*3/uL (0.00-0.03) 07/25/23 05:36 Absolute Neuts (auto) 5.8 x10*3/uL (2.0-8.3) 07/25/23 05:36 Absolute Nucleated RBC 0.000 X10*3/uL (0.0-0.012) 07/27/23 06:20 Nucleated RBC % (auto) 0.0 /100WBC (0.0-0.2) 07/27/23 06:20 D-Dimer High Sensitivty < 150 NG/ML 07/24/23 21:38 Sodium 140 mmol/L (135-145) 07/27/23 06:20 Potassium 5.1 mmol/L (3.3-5.1) 07/27/23 06:20 Chloride 108 mmol/L (96-108) 07/27/23 06:20 Carbon Dioxide 24 mmol/L (22-29) 07/27/23 06:20 Anion Gap 13 (12-20) 07/27/23 06:20 BUN 31 mg/dL (9-16) H 07/27/23 06:20 Creatinine 0.88 mg/dL (0.5-1.4) 07/27/23 06:20 Estim Creat Clear Calc 86.0 07/27/23 06:20 Estimated GFR > 60 07/27/23 06:20 POC Glucose 231 mg/dL (60-115) H 07/27/23 11:37 Random Glucose 142 mg/dL (60-115) H 07/27/23 06:20 Lactic Acid 1.2 mmol/L (0.5-2.0) 07/24/23 21:38 Calcium 8.7 mg/dL (8.4-10.2) 07/27/23 06:20 Ferritin 13 ng/mL (20-250) L 07/24/23 21:38 Total Bilirubin 0.3 mg/dL (0.0-1.0) 07/27/23 06:20 AST 25 U/L (5-37) 07/27/23 06:20 ALT 14 U/L (0-40) 07/27/23 06:20 Alkaline Phosphatase 77 U/L (39-117) 07/27/23 06:20 Lactate Dehydrogenase 170 U/L (118-273) 07/24/23 21:38 Troponin I High Sens 3.9 ng/L (<3.5-35.0) 07/24/23 21:38 C-Reactive Protein 1.55 mg/dL (< or = 0.50) H 07/27/23 06:20 B-Natriuretic Peptide 71 pg/mL (<100) 07/27/23 06:20 Total Protein 6.1 g/dL (6.5-8.0) L 07/27/23 06:20 Albumin 3.3 g/dL (3.5-5.0) L 07/27/23 06:20 Procalcitonin 0.08 ng/mL 07/24/23 21:38 Influenza Type A (PCR) NEGATIVE (Negative) 07/24/23 21:38 Influenza Type B (PCR) NEGATIVE (Negative) 07/24/23 21:38 RSV RNA Qual (PCR) NEGATIVE (Negative) 07/24/23 21:38 SARS-CoV-2 RNA (RT-PCR) POSITIVE (Negative) A 07/24/23 21:38 Impressions Chest X-Ray 07/24/23 21:16 IMPRESSION: Low lung volume slightly limits evaluation. There is no current evidence for active cardiopulmonary disease. Venous Duplex 07/27/23 08:33 IMPRESSION: No DVT demonstrated in the bilateral lower extremity. Discharge Plan Discharge Anticipated Discharge Date/Time: 07/27/23 11:54 Patient Disposition: Home, Self-Care Discharge Diagnosis: hypoxia due to Covid-19 infection Referrals: Jaxon Coffman MD [Primary Care Provider] - 1 Week Discharge Medications: New omeprazole 20 mg Capsule,Delayed Release(Dr/Ec) 20 mg PO DAILY@0630 Qty: 30 0RF dexamethasone 6 mg tablet 6 mg PO DAILY Qty: 7 0RF Continued nitroglycerin 0.4 mg tablet, sublingual 0.4 mg SUBLINGUAL Q5M PRN (Reason: Chest Pain) Qty: 25 2RF lorazepam 0.5 mg tablet 1 tab PO BEDTIME PRN (Reason: Insomnia) aspirin 81 mg Tablet,Delayed Release (Dr/Ec) 81 mg PO DAILY (DME) FreeStyle Lite Strips Strip Qty: 100 0RF Rx Instructions: Test four times a day or as directed. (DME) blood-glucose meter [FreeStyle Lite Meter] Kit Qty: 1 0RF Rx Instructions: As Directed (DME) lancets [FreeStyle Lancets] 28 gauge Misc Qty: 100 0RF Rx Instructions: Test four times a day or as directed. amlodipine 5 mg tablet 5 mg PO DAILY gabapentin [Neurontin] 300 mg capsule 300 mg PO QID PRN (Reason: Pain) metformin 500 mg tablet 250 mg PO BIDWM metoprolol succinate 50 mg tablet extended release 24 hr 50 mg PO DAILY atorvastatin 40 mg tablet 40 mg PO BEDTIME cyanocobalamin (vitamin B-12) 1,000 mcg Tablet 1,000 mcg PO DAILY allopurinol 100 mg tablet 100 mg PO DAILY lisinopril 10 mg tablet 10 mg PO DAILY Discharge Orders: Discharge Order (Routine); Ordered 07/27/23 Ordered By: Marina Galaviz Diet: Diabetic diet Activity on Discharge: As tolerated Stand Alone Forms: Patient Portal Discharge page Care Plan Goals: recovery from Covid Health Concerns: hypoxia due to Covid-19 infection Plan of Treatment: dexamethasone 6 mg daily for 7 days maintain isolation for 7 more days then resume cardiac rehabilitation Check your oxygen saturation 2-3x a day or if you develop shortness of breath. Return to the hospital if 90% or less. Please follow up with your primary care doctor within 1 week. Return to the hospital if you experience recurrent or worsening symptoms. Assessment: See Discharge Summary.
[2023-07-27] MEDS: lisinopriL 10 MG TABLET PO (12:22)
[2023-07-27] MEDS: Insulin Lispro 100 UNIT/ML 3 ML VIAL SUBCUT (12:23)
== END 2023-07-27 14:22 | disposition home or self-care (01) | DRG 871 ==
LOC: HO.ED 22:35 → HO.EDOVER 07-25 02:03 → HO.IMC 07-25 05:58
PROVIDERS: Hospitalist; Admitting Provider Internal Medicine; Emergency Provider Emergency Medicine; PCP Internal Medicine; Visit Provider Family Medicine
DX: A41.89 Other specified sepsis (principal); J96.01 Acute respiratory failure with hypoxia; U07.1 COVID-19; I25.118 Atherosclerotic heart disease of native coronary artery with other forms of angina pectoris; I10 Essential (primary) hypertension; E11.9 Type 2 diabetes mellitus without complications; E78.5 Hyperlipidemia, unspecified; G47.33 Obstructive sleep apnea (adult) (pediatric); J44.9 Chronic obstructive pulmonary disease, unspecified; Z87.891 Personal history of nicotine dependence; Z79.82 Long term (current) use of aspirin; Z79.84 Long term (current) use of oral hypoglycemic drugs; Z79.899 Other long term (current) drug therapy
CPT/HCPCS: 0241U; 36415; 71045; 80053; 82728; 82947; 83605; 83615; 83880; 84145; 84484; 85025; 85027; 85379; 86140; 87040; 90686; 93005; 93970; 94640; 97161; 99285; J0248; J0456; J0696; J1100; J1643

== ENCOUNTER → 2023-07-24 21:02 | Outpatient (BNV) | payer MEDICARE, SELFPAY ==
[2023-04-20 12:48] VITALS: BP 140/40; BP 94/40
[2023-05-19 08:04] VITALS: BP 126/50; BMI 37.2
== END ==
PROVIDERS: Emergency Provider Emergency Medicine; PCP Internal Medicine; Visit Provider Internal Medicine
DX: U07.1 COVID-19 (principal); J96.01 Acute respiratory failure with hypoxia; A41.89 Other specified sepsis; B97.89 Other viral agents as the cause of diseases classified elsewhere
CPT/HCPCS: 99223; 99232; 99239; 99499

== ENCOUNTER → 2023-07-25 01:59 | Outpatient (BNV) | payer MEDICARE, SELFPAY ==
[2023-04-20 12:48] VITALS: BP 140/40; BP 94/40
[2023-05-19 08:04] VITALS: BP 126/50; BMI 37.2
== END ==
PROVIDERS: Admitting Provider Internal Medicine; Emergency Provider Emergency Medicine; PCP Internal Medicine; Visit Provider Internal Medicine
DX: U07.1 COVID-19 (principal); R09.02 Hypoxemia
CPT/HCPCS: 99222

== ENCOUNTER 2023-08-02 16:50 | Emergency (ER) | payer MEDICARE, SELFPAY ==
[2023-04-20 12:48] VITALS: BP 140/40; BP 94/40
[2023-05-19 08:04] VITALS: BP 126/50; BMI 37.2
--- NOTE | ~2023-08-02 | XR_ITS ---
EXAMINATION: XR CHEST CLINICAL INFORMATION: SOB, cough and recent positive COVID. COMPARISON: Chest x-ray 07/24/2023 TECHNIQUE: Frontal view of the chest was obtained. FINDINGS: The lungs are well-expanded and clear acute pneumonic process. Heart size and pulmonary vascularity is normal. There is moderate's spondylosis dorsal spine. XR/XR chest 1V IMPRESSION: 1. No acute cardiopulmonary process seen. 2. Moderate spondylosis dorsal spine.
[2023-08-02 16:56] VITALS: BP 120/59; PULSE 108; RESP 18; TEMP 36.7; O2SAT 89; BMI 35.9
--- NOTE | 2023-08-02 16:56 | ED_ITS ---
HPI - SOB/Dyspnea General Chief Complaint: Dyspnea Stated Complaint: O2 down to 82% Time Seen by Provider: 08/02/23 17:16 Source: patient Mode of arrival: ambulatory Limitations: no limitations History of Present Illness HPI Narrative: Patient comes to the emergency room complaining of shortness of breath and low oxygen. Patient states that he was discharged from this hospital approximately 6 days ago. Patient was diagnosed with COVID. Patient states that when he left the hospital, he was feeling very well. Shortly after his discharge, patient started doing chores around the house including yd work. Over last 4 days, patient started feeling short of breath, coughing and wheezing. Yesterday, patient states that he checked his oxygen saturation at home and it was 82%. Patient states that usually when he checks it it ranges between 94-95%, patient known to have COPD. Patient is not oxygen dependent. Patient denies chest pain. Patient denies any vomiting or diarrhea. Related Data Home Medications Medication Instructions Recorded Confirmed allopurinol 100 mg tablet 100 mg PO DAILY 09/16/20 07/25/23 lisinopril 10 mg tablet 10 mg PO DAILY 09/16/20 07/25/23 amlodipine 5 mg tablet 5 mg PO DAILY 02/20/22 07/25/23 aspirin 81 mg tablet,delayed 81 mg PO DAILY 03/20/22 07/25/23 release lorazepam 0.5 mg tablet 1 tab PO BEDTIME PRN Insomnia 03/20/22 07/25/23 gabapentin 300 mg capsule 300 mg PO QID PRN Pain 07/13/22 07/25/23 (Neurontin) metformin 500 mg tablet 250 mg PO BIDWM 09/17/22 07/25/23 atorvastatin 40 mg tablet 40 mg PO BEDTIME 07/25/23 07/25/23 cyanocobalamin (vitamin B-12) 1,000 mcg PO DAILY 07/25/23 07/25/23 1,000 mcg tablet metoprolol succinate 50 mg 50 mg PO DAILY 07/25/23 07/25/23 tablet,extended release 24 hr Previous Rx's Medication Instructions Recorded blood sugar diagnostic (FreeStyle #100 ea 03/24/22 Lite Strips) blood-glucose meter (FreeStyle #1 ea 03/24/22 Lite Meter kit) lancets 28 gauge (FreeStyle #100 ea 03/24/22 Lancets) nitroglycerin 0.4 mg sublingual 0.4 mg sublingual Q5M PRN Chest 07/12/23 tablet Pain #25 tabs dexamethasone 6 mg tablet 6 mg PO DAILY #7 tabs 07/27/23 omeprazole 20 mg capsule,delayed 20 mg PO DAILY@0630 #30 caps 07/27/23 release prednisone 50 mg tablet 50 mg PO DAILY #5 tabs 08/02/23 Allergies Allergy/AdvReac Type Severity Reaction Status Date / Time No Known Allergies Allergy Verified 07/24/23 20:36 Review of Systems 2 Review of Systems: Constitutional : No Weight loss, No Fever, No Chills, No Night Sweats, No Fatigue, No Malaise ENT/Mouth : No Hearing loss, No Ear Pain, No Nasal Congestion, No Sinus Pain, No Hoarseness, No sore throat, No Rhinorrhea, No Swallowing Difficulty Eyes: No Eye Pain, No Swelling, No Redness, No Foreign Body, No Discharge, No Vision Changes Cardiovascular : No Chest Pain, no orthopnea no edema no palpitations Respiratory : Complaining of worsening cough, sputum production, wheezing and shortness of breath Gastrointestinal : No Nausea, No Vomiting, No Diarrhea, No Constipation, No abdominal Pain, No Hematochezia, No Melena Genitourinary : no irregular bleeding, No Dysuria, No Urinary Frequency, No Hematuria, No Urinary Incontinence, No Urgency, No Flank Pain, No Urinary Flow Changes, No Hesitancy Musculoskeletal : No joint pain, No Myalgias, No Joint Swelling Skin : No Skin Lesions, No rash Neuro : No Weakness, No Numbness, No Paresthesias, No Loss of Consciousness, No Dizziness, No Headache Psych : No Anxiety/Panic, No Depression, No SI/HI/AH/VH, No Social Issues, Heme/Lymph: No Bruising, No Bleeding,No Lymphadenopathy Endocrine : No Polyuria, No Polydipsia, No Temperature Intolerance COUNT INCLUDES THE [facility] Past Medical History Medical History Tracheobronchomalacia Pulmonary nodule COPD (chronic obstructive pulmonary disease) Migrated colon stent Diabetes Hospital-acquired pneumonia Pneumonia Nephrolithiasis Prostate cancer Obesity MAYA (obstructive sleep apnea) Right bundle branch block (RBBB) on electrocardiogram (ECG) Hyperlipidemia HTN (hypertension) Chronic stable angina CAD (coronary artery disease) Surgical History Hx of arthroscopy of knee Hx of lithotripsy Stented coronary artery Hx of cardiac cath Hx laparoscopic cholecystectomy History of basal cell carcinoma (BCC) excision History of carpal tunnel release Hx of hernia repair History of eye surgery Hx of spinal surgery Family History Family History Father CVD (cardiovascular disease) Mother CVD (cardiovascular disease) Brother CVD (cardiovascular disease) Social History Social History Household Members: Spouse Housing: House Do you presently have visiting nurse or other home services: No Alcohol intake: never Patient Tobacco Use Status: Former Tobacco user Quit Date: 2009 Tobacco use type: Cigarette Cigarette Packs Per Day: 1 Years Smoked: 30+ Smoked in Last 30 Days: No Use of substances other than those prescribed or required for medical reasons: No Advance Directives: No Advance Directives Information Provided: No Advance Directives Date on File: 07/17/21 service: No Current occupational status: retired Physical Exam 2 Vital Signs: Vital Signs: Last Vital Signs Temp 98.0 F 08/02/23 19:19 Pulse 90 08/02/23 19:19 Resp 18 08/02/23 19:19 BP 119/50 L 08/02/23 19:19 Pulse Ox 91 L 08/02/23 19:19 O2 Del Method Room Air 08/02/23 19:19 BMI result Body Mass Index 35.9 Const: Other: Appearance: Alert. Oriented X3. No acute distress. Eyes: Pupils equal, round and reactive to light. ENT: Pharynx normal. Neck: Normal inspection. Neck supple. No lymph nodes noted. No crepitus CVS: Normal heart rate and rhythm. Pulses normal. Normal S1 and S2 Respiratory: No respiratory distress. Bilateral rales, wheezing, oxygen saturation 93% on room air Abdomen: Soft and nontender. No rigidity. No distention. Skin: Skin warm and dry. Normal skin color. Normal skin turgor. Extremities: No lower extremity edema. No Lacerations. No Rash Neuro: Oriented X 3. No motor deficit. No sensory deficit. Moving all extremities. No slurred speech. CN 2 through 12 grossly intact Psych: calm, cooperative, normal affect Course Course Course Narrative: RME - 78 yo male with [place] [facility] [place] for COVID, hx COPD, DM, hx recurrent pneumonia, HTN, HLD who presents to the ER for SOB and difficulty breathing that started yesterday. he states when he was discharged he felt great, was home cutting down trees and working in the yard. Yesterday developed productive cough, SOB. Spo2 down to low 80s at home. Not on home O2. SPO2 89% in triage. Placed on 2L NC. Plan: CXR, labs, EKG Medications Administered Discontinued Medications Generic Name Dose Route Start Last Admin Trade Name Freq PRN Reason Stop Dose Admin Albuterol Sulfate 2.5 mg/ 0 mg 08/02/23 17:47 08/02/23 17:50 Albuterol/Ipratropium 3 ml INHALE 08/02/23 17:48 1 dose ONCE ONE Administration Dexamethasone Sodium Phosphate 6 mg 08/02/23 17:37 08/02/23 17:52 Dexamethasone Sod Phosphate 4 Mg/Ml Vial IVPUSH 08/02/23 17:38 6 mg ONCE ONE Administration Medical Decision Making Medical Decision Making [facility] Narrative: -my interpretation of labs: patient's white blood cell count 16.6, patient has been taking oral steroids. D-dimer negative, chemistry unremarkable, troponin negative, BNP negative -interpretation of chest x-ray: No infiltrates -patient was ambulated in the emergency room, patient's oxygen saturation 89% and did not drop any further, while sitting 94% on room air. -I discussed the patient with Dr. Miller, patient's O2 stable, patient does not meet admission criteria. Patient states that he feels very well, off oxygen, patient would like to be discharged home Differential Diagnosis Differential Diagnoses: The differential diagnosis associated with the presentation includes (COVID, pneumonia, chronic lung disease) Admission/Observation Consideration of admission/observation: Escalation of care including admission/observation considered (The patient was considered, patient still recuperating from COVID) Consult Healthcare Provider Management of the patient was discussed with: Hospitalist Lab Data [facility] Lab Attestation statement: I reviewed the patient's lab results. 08/02/23 17:28 08/02/23 17:29 Labs: Lab Results 08/02/23 08/02/23 Range/Units 17:28 17:29 WBC 16.6 H (4.8-10.8) X10*3/uL RBC 5.54 (4.60-5.80) X10*6/uL Hgb 13.6 L (14.0-18.0) g/dl Hct 44.0 (42.0-52.0) % MCV 79.4 L (80.0-98.0) fL MCH 24.5 L (27.0-33.0) pg MCHC 30.9 L (31.0-36.0) g/dl RDW 21.2 H (11.0-16.0) % Plt Count 202 (160-400) X10*3/uL MPV 9.9 (9.4-12.4) fL Immature Gran % (Auto) 0.6 H (0.0-0.4) % Neut % (Auto) 84.0 H (45-73) % Lymph % (Auto) 5.4 L (20-40) % Evangeline % (Auto) 9.7 (2-11) % Eos % (Auto) 0.2 (0-4) % Baso % (Auto) 0.1 (0-2) % Lymph # (Auto) 0.9 L (1.2-4.9) X10*3/uL Evangeline # (Auto) 1.6 H (0.1-1.2) X10*3/uL Eos # (Auto) 0.0 (0.0-0.4) X10*3/uL Baso # (Auto) 0.0 (0.0-0.2) X10*3/uL Abs Immat Gran (auto) 0.10 H (0.00-0.03) X10*3/uL Absolute Neuts (auto) 13.9 H (2.0-8.3) x10*3/uL Absolute Nucleated RBC 0.000 (0.0-0.012) X10*3/uL Nucleated RBC % (auto) 0.0 (0.0-0.2) /100WBC Smear Tech's Comments VERIFIED PT 11.4 (11.1-13.3) SEC INR 0.9 (0.9-1.1) APTT 23.7 L (26.0-36.4) SEC D-Dimer High Sensitivty < 150 NG/ML Sodium 136 (135-145) mmol/L Potassium 4.7 (3.3-5.1) mmol/L Chloride 102 (96-108) mmol/L Carbon Dioxide 26 (22-29) mmol/L Anion Gap 13 (12-20) BUN 32 H (9-16) mg/dL Creatinine 1.00 (0.5-1.4) mg/dL Estim Creat Clear Calc 75.5 Estimated GFR > 60 Random Glucose 133 H (60-115) mg/dL Calcium 9.1 (8.4-10.2) mg/dL Magnesium 1.9 (1.6-2.6) mg/dL Total Bilirubin 0.5 (0.0-1.0) mg/dL Direct Bilirubin 0.2 (0.0-0.5) mg/dL AST 16 (5-37) U/L ALT 16 (0-40) U/L Alkaline Phosphatase 77 (39-117) U/L Troponin I High Sens 6.4 D (<3.5-35.0) ng/L B-Natriuretic Peptide 22 (<100) pg/mL Total Protein 6.1 L (6.5-8.0) g/dL Albumin 3.4 L (3.5-5.0) g/dL COVID-19 (LALA) Positive A (Negative) COVID-19 Clin Com See Note Independent Interpretation I performed an independent interpretation of an: Plain X-Ray Radiology Impression Discussion of test interpretation with radiology: I have reviewed the radiologist's reading. Radiologist Impression: FINDINGS: The lungs are well-expanded and clear acute pneumonic process. Heart size and pulmonary vascularity is normal. There is moderate's spondylosis dorsal spine. XR/XR chest 1V IMPRESSION: 1. No acute cardiopulmonary process seen. 2. Moderate spondylosis dorsal spine. Independent Historian Clinical information obtained from an independent historian. History obtained from or confirmed by: Spouse External Record Review External record reviewed: Inpatient record Critical Care Time Critical Care Time Critical Care Time: Yes Total Critical Care Time: 60 Attestation: I have personally provided critical care time. Time includes review of lab data, radiology results, discussion with consultants, and monitoring for potential decompensation. Intervention performed as documented. Discharge Plan Discharge Clinical Impression: COVID Patient Disposition: Home, Self-Care Instructions: COVID-19 (Coronavirus Disease 2019) (ED) Additional Instructions: Please follow-up with your primary care physician tomorrow. If you have any worsening or new symptoms, please return to the emergency room or call 911 Prescriptions: New prednisone 50 mg tablet 50 mg PO DAILY Qty: 5 0RF No Action nitroglycerin 0.4 mg tablet, sublingual 0.4 mg SUBLINGUAL Q5M PRN (Reason: Chest Pain) Qty: 25 2RF lorazepam 0.5 mg tablet 1 tab PO BEDTIME PRN (Reason: Insomnia) aspirin 81 mg Tablet,Delayed Release (Dr/Ec) 81 mg PO DAILY (DME) FreeStyle Lite Strips Strip Qty: 100 0RF Rx Instructions: Test four times a day or as directed. (DME) blood-glucose meter [FreeStyle Lite Meter] Kit Qty: 1 0RF Rx Instructions: As Directed (DME) lancets [FreeStyle Lancets] 28 gauge Misc Qty: 100 0RF Rx Instructions: Test four times a day or as directed. amlodipine 5 mg tablet 5 mg PO DAILY gabapentin [Neurontin] 300 mg capsule 300 mg PO QID PRN (Reason: Pain) metformin 500 mg tablet 250 mg PO BIDWM metoprolol succinate 50 mg tablet extended release 24 hr 50 mg PO DAILY atorvastatin 40 mg tablet 40 mg PO BEDTIME cyanocobalamin (vitamin B-12) 1,000 mcg Tablet 1,000 mcg PO DAILY omeprazole 20 mg Capsule,Delayed Release(Dr/Ec) 20 mg PO DAILY@0630 Qty: 30 0RF dexamethasone 6 mg tablet 6 mg PO DAILY Qty: 7 0RF allopurinol 100 mg tablet 100 mg PO DAILY lisinopril 10 mg tablet 10 mg PO DAILY
--- NOTE | 2023-08-02 16:58 | ECG_ITS ---
Test Reason : SOB Blood Pressure : / mmHG Vent. Rate : 095 BPM Atrial Rate : 095 BPM P-R Int : 152 ms QRS Dur : 140 ms QT Int : 396 ms P-R-T Axes : 049 -53 053 degrees QTc Int : 497 ms Normal sinus rhythm Left axis deviation Right bundle branch block Abnormal ECG When compared with ECG of 24-JUL-2023 21:19, No significant change was found Referred By: Cindy Farah Electronically Signed By:ARLEEN SANDERS
[2023-08-02 17:43] LABS: Basophils Percent Auto 0.1 % (0-2); Eosinophils Percent Auto 0.2 % (0-4); Imm Gran Pct Auto 0.6 % (0.0-0.4); Lymphocytes Percent Auto 5.4 % (20-40); MANUAL DIFF FLAG SCAN; Red Cell Distribution Width 21.2 % (11.0-16.0); SCAN SMEAR FLAG 1
[2023-08-02 17:46] LABS: Hemoglobin 13.6 g/dl (14.0-18.0); Lymphocytes Absolute Auto 0.9 X10*3/uL (1.2-4.9); Mean Corpuscular HGB Conc 30.9 g/dl (31.0-36.0); Mean Corpuscular Hemoglobin 24.5 pg (27.0-33.0); Mean Corpuscular Volume 79.4 fL (80.0-98.0); Mean Platelet Volume 9.9 fL (9.4-12.4); Monocytes Absolute Auto 1.6 X10*3/uL (0.1-1.2); Monocytes Percent Auto 9.7 % (2-11); Neutrophils Absolute Auto 13.9 x10*3/uL (2.0-8.3); Platelet Count 202 X10*3/uL (160-400); Red Blood Count 5.54 X10*6/uL (4.60-5.80); White Blood Count 16.6 X10*3/uL (4.8-10.8)
[2023-08-02 17:46] LABS: INTERNATIONAL NORM RATIO 0.9 (0.9-1.1); Prothrombin Time 11.4 SEC (11.1-13.3)
[2023-08-02 17:49] LABS: PLT ABN DIST 1
[2023-08-02] MEDS: Albuterol Sulfate 2.5 MG, Albuterol/Iprat 2.5/0.5MG 3 ML 3 ML INHALE (17:50)
[2023-08-02 17:52] VITALS: PULSE 96; RESP 18; O2SAT 92
[2023-08-02] MEDS: dexAMETHasone sod phosphate 4 MG/ML VIAL 6 MG IVPUSH (17:52)
[2023-08-02 17:53] LABS: Alanine Aminotransferase 16 U/L (0-40); Albumin Level 3.4 g/dL (3.5-5.0); Alkaline Phosphatase 77 U/L (39-117); Anion Gap 13 (12-20); Aspartate Amino Transferase 16 U/L (5-37); Bilirubin Direct 0.2 mg/dL (0.0-0.5); Bilirubin Total 0.5 mg/dL (0.0-1.0); Blood Urea Nitrogen 32 mg/dL (9-16); COVID-19 Test Positive (Negative); Calcium 9.1 mg/dL (8.4-10.2); Carbon Dioxide 26 mmol/L (22-29); Chloride 102 mmol/L (96-108); Creatinine Clr Calc Pharmacy 75.5; Estimated Glomerular Filt Rate > 60; Glucose Random 133 mg/dL (60-115); IDNOW Serial# BCCEAD1C; Magnesium 1.9 mg/dL (1.6-2.6); Potassium 4.7 mmol/L (3.3-5.1); Sodium 136 mmol/L (135-145); Total Protein 6.1 g/dL (6.5-8.0)
[2023-08-02 17:58] LABS: B Type Natriuretic Peptide 22 pg/mL (<100)
[2023-08-02 18:01] LABS: Troponin-I High Sensitivity 6.4 ng/L (<3.5-35.0)
[2023-08-02 18:03] LABS: SLIDE REVIEW VERIFIED
[2023-08-02 18:25] LABS: D Dimer High Sensitivity < 150 NG/ML
[2023-08-02 18:26] LABS: Partial Thromboplastin Time 23.7 SEC (26.0-36.4)
[2023-08-02 19:19] VITALS: BP 119/50; PULSE 90; RESP 18; TEMP 36.7; O2SAT 91
[2023-08-02 19:56] VITALS: BP 111/42; PULSE 78; RESP 17; TEMP 36.6; O2SAT 93
[2023-08-02 19:57] LABS: IDNOW Serial# BCCEAD1C; Influenza A Negative (Negative); Influenza B2 Negative (Negative)
--- NOTE | 2023-08-02 20:03 | PC.NURSE ---
Pt a&o, denies any increase sob or chest pain, Iv removed, Reviewed discharge instruction with pt, pt verbalized understanding, Notified JOSELO Wang.
== END 2023-08-02 20:06 | disposition home or self-care (01) ==
PROVIDERS: Physician Assistant; Emergency Provider Emergency Medicine; PCP Internal Medicine
DX: U07.1 COVID-19 (principal); R06.02 Shortness of breath; R05.9 Cough, unspecified; I45.10 Unspecified right bundle-branch block; Z79.899 Other long term (current) drug therapy
CPT/HCPCS: 36415; 71045; 80048; 80076; 83735; 83880; 84484; 85025; 85379; 85610; 85730; 87502; 87635; 93005; 94640; 96374; 99284; 99285; J1100

== ENCOUNTER 2023-08-16 09:24 | Outpatient (REF) | payer MEDICARE, SELFPAY ==
[2023-04-20 12:48] VITALS: BP 140/40; BP 94/40
[2023-05-19 08:04] VITALS: BP 126/50; BMI 37.2
--- NOTE | ~2023-08-16 | CT_ITS ---
EXAMINATION: CT CHEST WITHOUT CONTRAST CLINICAL INFORMATION: Solitary pulmonary nodule. COMPARISON: Prior chest CT examinations, most recently 08/25/2022. TECHNIQUE: Multidetector volumetric CT imaging of the chest was done. Axial MIP volume rendering provided. Sagittal and coronal reformatted images were obtained. This CT examination was performed using dose optimization techniques as appropriate, variously including the following: *Automated exposure control *Adjustment of mA and/or kV according to patient size (this includes techniques or standardized protocols for targeted exams where dose is matched to indication/reason for exam; i.e. extremities or head) *Use of iterative reconstruction technique DLP: 245 mGy-cm FINDINGS: PACKING SUPERVISOR: The lungs are symmetrically well-expanded and grossly clear. There are upper abdominal surgical clips. LUNGS: Within the bilateral lower lobes, there is pleural and parenchymal scar/atelectasis. This is new/significantly increased from prior. There are further new/increased scattered foci of minor pleural-based scarring within the bilateral upper lobes and the right middle lobe. Abutting the accessory fissure (5:303), a stable 5 mm benign fissural lymph node is seen. Within the posterior basal segment of the right lower lobe (5:375 and 401), a new 5 mm noncalcified subpleural nodule is seen, and there is a new 1.0 x 0.6 cm noncalcified parenchymal nodule with slight groundglass halo. Within the medial segment of the right middle lobe (5:386), a new 2.2 x 1.5 cm groundglass nodule is seen. Laterally within the left upper lobe (5:185 and 2:30), there are new 9 mm and 8 mm benign pleural-based lymph nodes. Within the apicoposterior segment of the left upper lobe (5:284), a 3 mm noncalcified nodule is newly seen, with adjacent focal scar/atelectasis. Within the lingula (5:336), a 1.4 cm nodule is newly seen, with adjacent focal pleural thickening. There is mild generalized small airway thickening. There is a saber-sheath appearance of the trachea. MEDIASTINUM: The thyroid is unremarkable. Within the right paratracheal region (3:23), a 1.7 x 0.9 cm lymph node is seen. Within the subcarinal region (3:31), a 2.2 x 1.0 cm lymph node is seen. These are both mildly increased from prior. There is a shotty 7 x 7 mm left axillary lymph node (3:31). No sizable bilateral hilar lymphadenopathy is seen. CORONARY ARTERY CALCIFICATION: Moderately severe. PLEURA: There is no pleural effusion. No pleural mass or thickening. AXILLA: No lymphadenopathy. There is mild gynecomastia. UPPER ABDOMEN: The gallbladder is surgically absent. There are gastroesophageal surgical clips. OSSEOUS STRUCTURES: There is multi-level marked mid lower cervical, thoracic and upper lumbar spondylosis. At T7-T8, there is marked degenerative disc disease, with vacuum phenomenon and Schmorl's node formation. No acute or aggressive osseous finding is noted. CT/CT chest wo IV con IMPRESSION: 1. There are multiple and increased findings, including a new 2.2 cm right middle lobe groundglass nodule, new solid parenchymal nodules, the largest measuring 1.4 cm at the left base, and new pleural-based lymph nodes. These are nonspecific and could be infectious, inflammatory or neoplastic in etiology. According to the UPDATED 2017 Fleischner Society recommendations, the advised follow-up imaging for multiple solid nodules, the largest measuring 6 mm or greater, is: LOW RISK PATIENT: CT at 3-6 months, then consider CT at 18-24 months. HIGH RISK PATIENT: CT at 3-6 months, then at 18-24 months. 2. There are new/increased foci of pleural and parenchymal scar/atelectasis, for which continued attention on imaging follow-up is recommended. No associated focal airway obstruction is noted. 3. There is generalized small airway thickening, and the trachea shows a saber-sheath appearance, suggesting obstructive airways disease. 4. There is increased paratracheal and subcarinal lymphadenopathy, for which continued attention on imaging follow-up is recommended. 5. There are moderately severe coronary artery atherosclerotic calcifications. 6. There is multi-level marked degenerative change of the included spine, most pronounced at T7-T8. 7. There is moderately severe coronary artery atherosclerotic calcification. Fleischner guidelines were followed.
== END 2023-08-16 09:25 | disposition home or self-care (01) ==
LOC: HO.CT 09:24
PROVIDERS: PCP Internal Medicine; Visit Provider Hospitalist
DX: R91.1 Solitary pulmonary nodule (principal)
CPT/HCPCS: 71250

== ENCOUNTER 2023-08-18 09:49 | Outpatient (REF) | payer MEDICARE, SELFPAY ==
[2023-04-20 12:48] VITALS: BP 140/40; BP 94/40
[2023-05-19 08:04] VITALS: BP 126/50; BMI 37.2
[2023-08-18 11:05] LABS: MANUAL DIFF FLAG NO
[2023-08-18 11:43] LABS: Basophils Percent Auto 0.4 % (0-2); Eosinophils Absolute Auto 0.2 X10*3/uL (0.0-0.4); Hematocrit 39.8 % (42.0-52.0); Hemoglobin 11.9 g/dl (14.0-18.0); Imm Gran Abs Auto 0.01 X10*3/uL (0.00-0.03); Imm Gran Pct Auto 0.2 % (0.0-0.4); Lymphocytes Absolute Auto 1.3 X10*3/uL (1.2-4.9); Lymphocytes Percent Auto 24.9 % (20-40); Mean Corpuscular HGB Conc 29.9 g/dl (31.0-36.0); Mean Corpuscular Hemoglobin 25.2 pg (27.0-33.0); Mean Corpuscular Volume 84.3 fL (80.0-98.0); Mean Platelet Volume 9.7 fL (9.4-12.4); Monocytes Absolute Auto 0.4 X10*3/uL (0.1-1.2); Monocytes Percent Auto 7.5 % (2-11); Neutrophils Absolute Auto 3.3 x10*3/uL (2.0-8.3); Platelet Count 166 X10*3/uL (160-400); Red Blood Count 4.72 X10*6/uL (4.60-5.80); Red Cell Distribution Width 19.4 % (11.0-16.0); White Blood Count 5.3 X10*3/uL (4.8-10.8)
[2023-08-18 11:47] LABS: Estimated Average Glucose 157 mg/dL; Hemoglobin A1c % 7.1 % (<6.0)
[2023-08-18 12:07] LABS: Alanine Aminotransferase 12 U/L (0-40); Alkaline Phosphatase 130 U/L (39-117); Anion Gap 11 (12-20); Aspartate Amino Transferase 17 U/L (5-37); Bilirubin Total 0.2 mg/dL (0.0-1.0); Blood Urea Nitrogen 17 mg/dL (9-16); Calcium 8.7 mg/dL (8.4-10.2); Carbon Dioxide 26 mmol/L (22-29); Chloride 107 mmol/L (96-108); Estimated Glomerular Filt Rate > 60; Glucose Random 121 mg/dL (60-115); Magnesium 1.8 mg/dL (1.6-2.6); Potassium 4.4 mmol/L (3.3-5.1); Sodium 140 mmol/L (135-145); Total Protein 6.2 g/dL (6.5-8.0)
[2023-08-18 13:17] LABS: Appearance Urine Clear; Color Urine Yellow; Glucose Urine UA Negative (Negative); Leukocyte Esterase Urine Negative (Negative); Nitrite Urine Negative (Negative); Urine Blood Negative (Negative); Urine Ketones Negative (Negative); Urine Protein Negative (Neg-Trace)
== END 2023-08-18 09:50 | disposition home or self-care (01) ==
LOC: HO.LAB 09:49
PROVIDERS: PCP Internal Medicine; Visit Provider Internal Medicine
DX: R53.83 Other fatigue (principal); R53.1 Weakness; J44.9 Chronic obstructive pulmonary disease, unspecified; I25.10 Atherosclerotic heart disease of native coronary artery without angina pectoris; E11.22 Type 2 diabetes mellitus with diabetic chronic kidney disease; N18.9 Chronic kidney disease, unspecified; Z86.16 Personal history of COVID-19
CPT/HCPCS: 36415; 80053; 81003; 82550; 83036; 83735; 85025; 86140

== ENCOUNTER 2023-09-01 09:47 | Outpatient (AMB) | payer MEDICARE, SELFPAY ==
[2023-04-20 12:48] VITALS: BP 140/40; BP 94/40
[2023-05-19 08:04] VITALS: BP 126/50; BMI 37.2
--- NOTE | 2023-09-01 10:09 | MHC.OFFVIS ---
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 He states for the last several months the patient does get short of breath with activity. If he climbs up at down stairs she does get short of breath. [id number] severity. Apparently he was seen in the ER for worsening respiratory symptoms. 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 Therefore, the patient is referred to Pulmonary. Overall the patient feels well. He stays active. He denies any significant coughing. 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 In addition to that he does have a smoking history. He also complains of daytime drowsiness. He has a hard time sleeping in does wake up short of breath at times. The patient has underlying COPD and based on hypoxia he should have a overnight oximetry to see if he qualifies for nocturnal oxygen. ?07/04/2020 The patient is here for pulmonary follow-up visit. Overall he is doing better from a respiratory status. Since we last spoke the patient was evaluated for a GI bleed found to have significant gastritis and peptic ulcer disease likely from his drinking dependency. He is now own not drinking alcohol at all. In the meantime he also was evaluated for some chest discomfort and had further cardiac evaluations at [facility] was found to have triple-vessel disease and now plan to have cardiac surgery. For the last 3 weeks he has been without any alcohol and he has been taking care itself. Her weight lost 6 lb any feels better than he had in a long time. ?07/29/2020 The patient is here for pulmonary follow-up visit. Overall the patient is doing well from a respiratory status. He did have his cardiac catheterization demonstrating multiple vessel disease. He will follow up with Cardiology regarding possible interventions surgical versus percutaneous. In the meantime he continues with this cardioprotective medications. He continues taking all his respiratory medicines. He did have pulmonary function studies done today demonstrating [id number] COPD with a moderate diffusion impairment. The patient also has significant tracheomalacia. Explained to the patient that he does have increased moderate risk for pulmonary perioperative complications. These risks include; atelectasis, hypoxia, pneumonia and prolonged mechanical ventilation. At this point the patient is medically optimized from a pulmonary standpoint in March go ahead and have surgery. 02/24/2022 this is a pulmonary follow-up visit. The patient is a 76-year-old gentleman who has been lost to follow-up now for several years. He has underlying COPD. Apparently had worsening respiratory symptoms and he came into the emergency department where he was diagnosed with a left lower lobe pneumonia. He was admitted for COPD exacerbation as well. He did require oxygen. He was subsequently discharged home on Vantin azithromycin and also prednisone. He also has inhalers. He has been concerned about the inhalers because of the side effects. I did reassure him that he should be taking it. In addition to that he did benefit from nebulizer. Therefore will make sure that he gets a nebulizer before he goes home. He still having some issues with dyspnea on exertion. We did taken for 6 minute walk test the patient did qualify for oxygen with activity with a conserving device. 2 L pulse. Will submit that to the local [employer] in order for him to start the oxygen. He also should use at nighttime while sleeping. The patient needs to have repeat pulmonary function studies to assess his lung capacity. He also has underlying coronary artery disease and they are considering cardiac surgery for him will continue to reassess him from a pulmonary standpoint. 04/08/2022 the patient is here for a pulmonary follow-up visit. Since we last spoke the patient again was admitted to the hospital with chest discomfort. He was then referred to [facility] where he was evaluated by Cardiac surgery. Ultimately underwent a cardiac catheterization in had to stent placement. Therefore, he did not need open her surgery. After he was discharged from the hospital he started developing worsening shortness of breath cough and fever. He was admitted again to the [facility] with now pneumonia. The pneumonia was on the left side. The patient was given antibiotics and he improved. He was upset that pulmonary did not see him while he was there. However, Pulmonary was not consulted. I did advise him that the next time if it does happen he can always call our office so we can request a consultation. She will then have him undergo pulmonary function studies and he should start pulmonary rehab / cardiac rehab. The patient also would benefit from repeating the chest x-ray to make sure that that abnormal left lower lobe airspace disease improves in the next couple months. the patient is also using the oxygen therapy. He needs a stretching machine tender frame tank. I did request a pulse conserving device in order for him to get back appropriate oxygen and be able to carry the oxygen tank with him. 08/10/2022 the patient is here for a pulmonary follow-up visit. The patient has had a very vent full spring and summer. Apparently he has been admitted multiple times with left lower lobe pneumonias and also underwent a percutaneous cardiac intervention with couple stents placed for the heart. Subsequently after that he then developed another bout of pneumonia this time on the right side. He has been concerned with the multiple pneumonias. He does get x-rays demonstrating clearing of the process after worse. He has not been using the oxygen and he wants the oxygen to be picked up at this time and I will do may make an order for that to happen. The patient also has been having issues with wheezing chest tightness as well. This is moderate severity. The patient has had very abnormal x-rays. Therefore I will request a CT scan of the chest to better address the recurrent pneumonias. The patient will also undergo blood work and start a course of antibiotics at this time. The patient does benefit from prednisone although he has concerns about his elevated sugars. Therefore will do a low-dose prednisone at this time. 06/01/2023 the patient is here for a pulmonary follow-up visit. He continues to have a significant productive cough. Difficult to expectorate. Moderate severity. The cough medication with codeine was not very effective for him. He kept coughing through the night. He was given a different cough medication in the past that seemed to work better. I do not have any records of it and we did call 3 different pharmacy tried identify the medication but still not clear. He will continue taking the guaifenesin with codeine for now. In meantime he did have a CT scan of the chest that we did evaluate. Appears to have a small right upper lobe nodular density measuring 1 cm. Although it is very ill-defined and indeed could be related to scarring. The patient also has some treating budding the right lower lobe area and has some chronic airway issues. 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 Will start CPT with acapella valve. 09/01/2023 the patient is here for a hospital follow-up visit. The patient apparently did have COVID-19 and did have significant acute on chronic respiratory failure along with COVID pneumonia. The patient did have a CT scan of the chest while he was in the hospital demonstrating areas of nodular ground-glass densities bilaterally. Also some lymphadenopathy. The ground-glass nodular densities were not present on his last ct scan last year. Therefore, will go ahead and repeat the CT scan in 3 months' time to make sure this large ground-glass nodular densities resolved. If they are still present then additional diagnostic interventions will be warranted. 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 It is very limited very severe. Will start him on azithromycin 3 times a week to see if we can help him with decreased mucus secretions and chronic bronchitis. In the future could consider referral to Interventional Pulmonary. But, stents in these central airways can be problematic with they can be dislodged. tracheoplasty is an option but with based on his age and his comorbidities is not worth the risk. [facility] Medical History (Updated 09/01/23 @ 21:42 by Thomas Steele MD) Pulmonary nodules COPD (chronic obstructive pulmonary disease) Tracheobronchomalacia Pulmonary nodule COPD (chronic obstructive pulmonary disease) Migrated colon stent Diabetes Hospital-acquired pneumonia Pneumonia Nephrolithiasis Prostate cancer Obesity MAYA (obstructive sleep apnea) Right bundle branch block (RBBB) on electrocardiogram (ECG) Hyperlipidemia HTN (hypertension) Chronic stable angina CAD (coronary artery disease) Surgical History Hx of arthroscopy of knee Hx of lithotripsy Stented coronary artery Hx of cardiac cath Hx laparoscopic cholecystectomy History of basal cell carcinoma (BCC) excision History of carpal tunnel release Hx of hernia repair History of eye surgery Hx of spinal surgery Family History Father CVD (cardiovascular disease) Mother CVD (cardiovascular disease) Brother CVD (cardiovascular disease) Social History Household Members: Spouse Housing: House Do you presently have visiting nurse or other home services: No Alcohol intake: never Patient Tobacco Use Status: Former Tobacco user Quit Date: 2009 Tobacco use type: Cigarette Cigarette Packs Per Day: 1 Years Smoked: 30+ Advance Directives Date on File: 07/17/21 service: No Current occupational status: retired Review of Systems Const Denies fever(s) Eyes Denies loss of vision ENT Reports nasal congestion and Reports nasal discharge Card Denies chest pain and Reports dyspnea on exertion Resp Reports chest congestion, Reports cough, Denies hemoptysis, Reports dyspnea on exertion and Reports wheezing GI Reports no additional complaints Reports no additional complaints Musc Reports no additional complaints Skin/Breast Denies rash Neuro Reports no additional complaints and Denies loss of vision Endo Reports no additional complaints Aller/Immun Reports wheezing Physical Exam Vital Signs: Last Vital Signs Pulse 91 09/01/23 10:10 Pulse Ox 63 L 09/01/23 10:10 Oxygen Delivery Method Room Air 09/01/23 10:10 BMI result Body Mass Index 36.0 Const General: alert Neck Neck: Yes normal visual inspection, Yes full ROM and Yes no lymphadenopathy Chest Chest palpation & inspection: normal inspection of the chest Resp Auscultation: no rhonchi, no wheezes and diminished lung sounds Cardio Rate: regular rate Rhythm: regular rhythm Heart sounds: S1 normal heart sound present and S2 normal heart sound present GI Palpation (GI): Soft to palpation and nontender Auscultation: normal bowel sounds Skin General skin exam: rashes and/or lesions noted Assessment & Plan Assessment & Plan (1) COPD (chronic obstructive pulmonary disease): Comment: 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 Code(s): J44.9 - Chronic obstructive pulmonary disease, unspecified Qualifiers: COPD type: COPD with acute exacerbation Qualified Code(s): J44.1 - Chronic obstructive pulmonary disease with (acute) exacerbation (2) CAD (coronary artery disease): Comment: s/p PCI x 2 stents 04/05 Code(s): I25.10 - Atherosclerotic heart disease of [place] coronary artery without angina pectoris Qualifiers: Coronary Disease-Associated Artery/Lesion type: unspecified vessel or lesion type [place] vs. transplanted heart: unspecified whether [place] or transplanted heart Associated angina: with other forms of angina Qualified Code(s): I25.118 - Atherosclerotic heart disease of [place] coronary artery with other forms of angina pectoris (3) Pulmonary nodule: Code(s): R91.1 - Solitary pulmonary nodule (4) Tracheobronchomalacia: Code(s): J39.8 - Other specified diseases of upper respiratory tract Plan stop AirDuo start Trelegy Short-acting beta agonist as needed cough syrup start Azithromycin MWF acapella valve for CPT Will repeat CT chest, short interval 3 months Follow-up in 3-4 months Orders: Orders CT chest wo IV con 3 Months R91.8 - Other nonspecific abnormal finding of lung field Medications: New azithromycin Take 1 tablet on Wednesday/Wednesday/Wednesday 250 mg PO 3XW 28 days 12 tabs 6RF K21.9 - Gastro-esophageal reflux disease without esophagitis [id number]-dfsernoku-elperdup 200-62.5-25 mcg (Trelegy Ellipta) 1 inh inhalation DAILY 30 days 60 ea 12RF Coding Level of Care Code Est Pt Level 4 (92320) Diagnoses Chronic obstructive pulmonary disease with acute exacerbation J44.1 COPD type: COPD with acute exacerbation Coronary artery disease with other form of angina pectoris, unspecified vessel or lesion type, unspecified whether [place] or transplanted heart I25.118 Coronary Disease-Associated Artery/Lesion type: unspecified vessel or lesion type [place] vs. transplanted heart: unspecified whether [place] or transplanted heart Associated angina: with other forms of angina Pulmonary nodule R91.1 Tracheobronchomalacia J39.8 Time Spent (min) 20
[2023-09-01 10:10] VITALS: PULSE 91; O2SAT 63; BMI 36.0
== END 2023-09-01 10:41 | disposition home or self-care (01) ==
PROVIDERS: PCP Internal Medicine; Visit Provider Hospitalist
DX: J44.1 Chronic obstructive pulmonary disease with (acute) exacerbation (principal); I25.118 Atherosclerotic heart disease of native coronary artery with other forms of angina pectoris; R91.1 Solitary pulmonary nodule; J39.8 Other specified diseases of upper respiratory tract
CPT/HCPCS: 99214

== ENCOUNTER → 2023-09-01 09:47 | Outpatient (BNVA) | payer MEDICARE, SELFPAY ==
[2023-04-20 12:48] VITALS: BP 140/40; BP 94/40
[2023-05-19 08:04] VITALS: BP 126/50; BMI 37.2
== END ==
PROVIDERS: PCP Internal Medicine; Visit Provider Hospitalist
DX: J44.1 Chronic obstructive pulmonary disease with (acute) exacerbation (principal); R91.1 Solitary pulmonary nodule; J39.8 Other specified diseases of upper respiratory tract; I25.118 Atherosclerotic heart disease of native coronary artery with other forms of angina pectoris
CPT/HCPCS: 99212

== ENCOUNTER 2023-10-11 10:00 | Outpatient (RCR) | payer MEDICARE, SELFPAY ==
[2022-02-03 06:38] VITALS: BP 124/60; BMI 37.7
[2023-04-20 12:48] VITALS: BP 140/40; BP 94/40; BMI 36.5
--- NOTE | 2023-04-20 15:03 | MHC.CR.ITI ---
Addendum entered and electronically signed by Glo Napier RN 04/23/23 11:30: Please note that diagnosis box stating Lung Transplant Z94.2 was entered in error and since removed from Assessment. Original Note: [address] [phone] F: [phone] Please see additional notes from [facility] Initial Assessment/ITP Cardiac Rehab Initial Assessment/ITP Start: 04/19/23 07:50 Freq: Status: Active Protocol: Activity Type Activity Date Activity User E-sign Co-sign Detail Recorded Client Recorded Date Recorded By Document 04/20/23 12:48 ANAY [id number] 04/19/23 08:01 ANAY 04/20/23 12:48 Cardiac Rehab ITP Initial [Excercise] -Irrigation Teacher Required No -Preferred Language Croatian -Number of sessions approved 36 -Diagnosis Coronary Stenting (PCI) Z98.61,Current Stable Angina I20.9,Lung Transplant Z94. 2 -Other Diagnosis CAD, COPD, HNT, HLD, RBBB, DM, MAYA, OBESITY, PROSTATE CA, PULM NODULE -Comments NEPHROLITTHIASI S, BASAL CELL CARCINOMA, CARPEL TUNNEL SYNDRONE, CHOLECYSECTOMY, ARTHRITIS IN KNEES [Functional Assessment] -6 Min Walk (distance in ft) 800 -Stress Test (Mode) WALK -METS Achieved 2.16 -Resting HR 60 -Resting BP 94/40 -Resting SpO2 93 -Exercise HR 94 -Exercise BP 140/40 -Exercise SpO2 94 -RPE 12 -Dyspnea Yes -ECG Summary SR -Comments NO ECTOPY NOTED [Pre Rehab] -Pre Rehab Home Exercise No -Comments Doesn't ex now. However he did attend CR at [facility] in past, as well as [place] [facility] [place] -Risk Stratification: Low Risk Uncomplicated Participants IA; CABG; angioplasty; atherectomy,No resting or exercise induced myocardial ischemia manifest as angina,No significant left ventricular dysfunction (EF > = 30%) -Comments EF 63% [Exercise Plan] [Intervention] -Exercise Prescription NuStep, Recumbent Bike, Recumbent Elliptical, Rower,Treadmill ,UBE,Upright Bike,Weights -Duration Intensity 36 Sessions -Frequency 2-3x/week -Angina with Exercise Yes [Exercise Education] -Exercise Education Exercise orientation, Exercise safety ,Home exercise, RPE,Self pulse checking,Signs and symptoms, Warmup/cooldown -Date Completed 04/20/23 -Initials CSP -Education Summary STATES HE IS LAZY AND WILL NEED PUSHING [Exercise Goals] -Exercise Most Days of the Week Yes -Exercise 30-45 mins/day Yes -Target HR Range +20 - +30 beats above resting -Target RPE range 11-13 -Increase METS next 30 days 0.5-1.0 METS Every two weeks -METs goal by Discharge 4 METS -Comments appears to suffer from deconditioning [Nutrition] [Hyperlipidemia] -Hyperlipidemia Yes -Are lab results available Yes -Lipid Draw Date 10/03/22 -Total Cholesterol 98 -LDL 42 -HDL 26 -Tryglycerides 151 [Diabetes] -Diabetes Yes -Diabetes Type 2 -HbA1C 6.40 -Date 02/22/23 -Monitors Glucose Yes -Frequency weekly/when symptomatic [Weight Management] -Height 5 ft 10 in -Weight 115.4 kg -BMI 36.5 -Recommended Diet DASH -Comments FOLLOWS DASH DIET AT TIMES. HAS MET WITH MILADIS IN PAST AND WENT TO CLASSES TO LEARN TO READ LABELS AND EAT HEART HEALTHY. [Drug/Alchohol Use] -Drug/Alcohol Use No -Comment DOESN'T DRINK AT ALL NOW, HOWEVER BEFORE THE STENTS IN 2021 HE WAS DRINKING VODKA, HALF GALLON A WEEK. [Nutritional Screen (Rate Your Plate)] -Score 56 -Interpretation of Score THERE ARE SOME CHANGES HE CAN MAKE TO IMPROVE HIS HEART HEALTHY DIET [Nutrition Plan] [Intervention] -Referral(s) Nutrition Brochures [Nutrition Education] -Nutrition Education Diabetes and excercise, Hydration, Nutrition, Reading food labels,Signs and symptoms of Hypo/Hyper- glycemia -Date Completed 04/20/23 -Initials CSP -Education Summary HOPING TO GET RID OF DIABETES MEDICATION ALL TOGETHER. WORKING WITH PCP. HAS BEEN TO CLASSES ABOUT FOLLOWING DIETS FOR HEART HEALTH AND LABEL READING. LOW SODIUM. [Nutrition Goals] -Goals BMI < 25, Fasting BG 80- 120 mg/dL,HDL > 40,LDL < 70, Total CHOL < 200 -Weight goal 200 -Comments JUST TO LOSE SOME WEIGHT [Psycho/Social] -Stage of Change Contemplation -Learning Barriers None -Occupation Retired -Job Description [employer] -PHQ9 Score 10 -Interpretation of Score MODERATE RISK FOR DEPRESSION -Plan of Action/Follow-up MOSTLY RELATED TO POOR SLEEP AND LOW ENERGY. HE IS DISCOURAGED WITH HIS WEIGHT AND HIS ENERGY LEVEL. ATTENDING CR TO IMPROVE HIS HEALTH -Comments FEELS BADLY ABOU THIS WT. READY FOR CHANGE -Patient Self-Reports Depression Yes: NO DESIRE TO HURT SELF AND IS HERE TO FEEL BETTER -Family Support Lives with spouse/others -Comments HAS SUPPORTIVE FAMILY [Psycho/Social Plan] [Intervention] -Referral(s) Patient refused consults [Psycho/Social Education] -Psycho/Social Education Advanced directives, Coping techniques, Depression and CAD,Positive support system, Relaxation Techniques, Reviewed PHQ9 Score w/pt, Sexuality and CAD,Signs and symptoms of CAD ,Stress management -Date Completed 04/20/23 -Initials CSP -Education Summary OCT 2019 HE RETIRED HAS GOOD SUPPORT SYSTEM BUT REFLECTS HIS MOTIVATION IS POOR AND HE NEEDS HELP TO MOTIVATE HIMSELF WHICH IS WHY HE WANTED TO RETURN TO CARDIAC REHAB. [Psycho/Social Goals] -Goals Manage/reduce stress [Other Core Comp] [Risk Factors] -Risk Factors Diabetes, Dyslipidemia, Family History of CAD, Hypertension, Obesity, Physical Inactivity, Tobacco Use, Other (see comments) [Hypertension] -Hypertention Yes -Resting BP: 94/40 [Tobacco Use] -Patient Tobacco Use Status Former Tobacco user -Tobacco use type Cigarette -Smoking packs per day 1 -Years smoked 30+ -Patient Interested in Nicotine No: QUIT A LONG Replacement WHILE AGO AND DOES NOT HAVE DESIRE TO SMOKE -Smoking Quit Date 2009 -Exposure to secondhand smoke No [Heart Failure] -Heart Failure No -EF% 63 -Comments REPORTS STATE NORMAL SYSTOLIC FUNCTION AND NORMAL FOR AGE DIASTOLIC HEART FUNCTION. [Other Core Comp Plan] [Intervention] -Referral(s) Recognizing Stressors,Self Monitoring BP [Other Core Comp Education] -Other Core Comp Education HF Disease progression, Medication compliance,Risk factor modifications, RPD Scale/SOB management, Smoking and CAD ,Tobacco triggers, Understanding hypertension, Not Applicable -Date Completed 04/20/23 -Initials CSP -Education Summary TODAY REVIEWED MEDICATION COMPLIANCE/ TRIGGERS FOR SMOKING( HE DOESN'T FEEL ANY) REVIEWED HYPERTENSION AND WILL ASSIST TO SET UP WITH GOOD PLAN AT DISCHARGE TO MONITOR HR AND BP FOR EX ON OWN. [Other Core Comp Goals] -Goals Improve dyspnea ,Manage risk factors,Manage signs and symptoms of CHF ,Medication compliance, Resting BP < 130/80,Not Applicable [Medication Plan] [Intervention] -Medications ALLOPURINOL 100 MG DAILY AMLODIPINE 5 MG DAILY ASA 81 MG DAILY ATORVASTATIN 40 MG DAILY BUDESONIDE- FORMOTEROL 160- 4.5 (SYMBICORT) 2 PUFFS BID FLUTICASONE PROPION- SALMETEROL 232- 14MCG BID GABAPENTIN 300 MG QID LISINOPRIL 10 MG DAILY LORAZEPAM 0.5MG NEEDED METFORMIN 250 MG BID METOPROLOL SUCCINATE ER 50 MG DAILY NITRO 0.4MG SUBLINGUAL Q5MIN PRN [Medication Education] -Education Importance of medication compliance, Medication purpose, Medication schedule, Medication side effects -Date Completed 04/20/23 -Initials CSP -Education Summary HE UNDERSTANDS THE IMPORTANCE OF COMPLIANCE WITHI HIS MEDICATIONS. [Medication Goals] -Goals Adherence to medication compliance [Treatment Times] -Rehab Services with ECG Monitor -Time 1315 -End Time 300 -Visit Duration 105
[2023-05-19 08:04] VITALS: BP 126/50; BMI 37.2
--- NOTE | 2023-05-19 08:25 | MHC.CR.ITR ---
[address] [phone] F: [phone] Please see additional notes from [facility] Cardiac Rehab Reassessment/ITP Cardiac Rehab Reassessment/ITP Start: 04/19/23 07:50 Freq: Status: Active Protocol: Activity Type Activity Date Activity User E-sign Co-sign Detail Recorded Client Recorded Date Recorded By Document 05/19/23 08:04 PEPE [id number] 05/19/23 08:24 [email or web address] 05/19/23 08:04 Cardiac Rehab Reassessment/ITP [Exercise] -Prepleater Required No -Preferred Language Hebrew -Progress Note Type 30-Day Note -Total Sessions Attended 8 -Comments NEPHROLITTHIASI S, BASAL CELL CARCINOMA, CARPEL TUNNEL SYNDRONE, CHOLECYSECTOMY, ARTHRITIS IN KNEES [Functional Assessment] -ECG Summary NSR -Home-Based Rehab Pt approved for home-based exercise -Fall Risk No [Exercise Plan] [Intervention] -Exercise Prescription NuStep, Recumbent Bike, Recumbent Elliptical, Rower,Treadmill ,UBE,Upright Bike,Weights -Duration Intensity 36 Sessions -Exercise Minutes/Day 30 -Exercise Days/Week 5 -Angina with Exercise Yes -Peak METs 5 [Home Exercise] -Mode walking -Frequency non rehab days -Intensity moderate [Exercise Education] -Exercise Education Exercise orientation, Exercise safety ,Home exercise, RPE,Self pulse checking,Signs and symptoms, Warmup/cooldown -Date Completed 04/20/23 -Initials CSP -Education Summary STATES HE IS LAZY AND WILL NEED PUSHING 05/19/23-Dmitri has obtained 3. 4METS. Lower back pain and deconditioning a factor in exercise tolerance. Will continue to increase exercises as tolerated and reinforce exercise guidelines. [Exercise Goals] -Exercise Most Days of the Week Yes -Exercise 30-45 mins/day Yes -Target HR Range +20 - +30 beats above resting -Target RPE range 11-13 -Increase METS next 30 days 0.5-1.0 METS Every two weeks -METs goal by Discharge 4 METS -Comments appears to suffer from deconditioning. 05/19/23-As above. Will reinforce home exercise program. On Dmitri exercised 42 minutes. [Nutrition] [Hyperlipidemia] -Are lab results available Yes -Hyperlipidemia Yes -Medication Changes No [Diabetes] -Diabetes Yes -Diabetes Type 2 -Fasting Glucose 110 -Date 07/17/21 -HbA1C 6.40 -Date 02/22/23 -Comments 06/08/23-BS have been WNL. Will follow up with MD for updated Lipids and HbA1C. He expresses some difficulty with diet;will reinforce teaching. BS have been WNL. [Weight Management] -Weight 114.3 kg -BMI 37.2 -Comments FOLLOWS DASH DIET AT TIMES. HAS MET WITH DIETARY IN THE PAST AND WENT TO CLASSES TO LEARN TO READ LABELS AND EAT HEART HEALTHY. [Drug/Alchohol Use] -Drug/Alcohol Use No -Change in Use No -Comment DOESN'T DRINK AT ALL NOW, HOWEVER BEFORE THE STENTS IN 2021 HE WAS DRINKING VODKA, HALF GALLON A WEEK. [Nutrition Plan] [Intervention] -Attended Nutrition Brochures [Nutrition Education] -Nutrition Education Diabetes and excercise, Hydration, Nutrition, Reading food labels,Signs and symptoms of Hypo/Hyper- glycemia -Date Completed 04/20/23 -Initials CSP -Education Summary HOPING TO GET RID OF DIABETES MEDICATION ALL TOGETHER. WORKING WITH PCP. HAS BEEN TO CLASSES ABOUT FOLLOWING DIETS FOR HEART HEALTH AND LABEL READING. LOW SODIUM. 06/08/23- Continues on Metformin. [Nutrition Goals] -Goals BMI < 25, Fasting BG 80- 120 mg/dL,HDL > 40,LDL < 70, Total CHOL < 200 -Weight goal 200 -Comments JUST TO LOSE SOME WEIGHT [Psycho/Social] -Stage of Change Contemplation -Occupation Retired -Return to Work Date NA -PHQ9 Score 10 -Interpretation of Score MODERATE RISK FOR DEPRESSION -Plan of Action/Follow-up MOSTLY RELATED TO POOR SLEEP AND LOW ENERGY. HE IS DISCOURAGED WITH HIS WEIGHT AND HIS ENERGY LEVEL. ATTENDING CR TO IMPROVE HIS HEALTH -Patient Self-Reports Depression Yes: NO DESIRE TO HURT SELF AND IS HERE TO FEEL BETTER -Comments FEELS BADLY ABOU THIS WT. READY FOR CHANGE [Psycho/Social Plan] [Intervention] -Attended Patient refused consults [Psycho/Social Education] -Psycho/Social Education Advanced directives, Coping techniques, Depression and CAD,Positive support system, Relaxation Techniques, Reviewed PHQ9 Score w/pt, Sexuality and CAD,Signs and symptoms of CAD ,Stress management -Date Completed 04/20/23 -Initials CSP -Education Summary OCT 2019 HE RETIRED HAS GOOD SUPPORT SYSTEM BUT REFLECTS HIS MOTIVATION IS POOR AND HE NEEDS HELP TO MOTIVATE HIMSELF WHICH IS WHY HE WANTED TO RETURN TO CARDIAC REHAB. 05/19/23-No change. He has been attending CR. [Psycho/Social Goals] -Goals Manage/reduce stress -Comments 05/19/23-Plan to support/ reinforce relaxation, coping techniques. [Other Core Comp] [Hypertension] -Hypertention Yes -Resting BP: 126/50 -Medication Changes No -Comments received shingles vaccine 12/14/21 denies side effects [Tobacco Use] -Change in Use No [Heart Failure] -Heart Failure No -Dyspnea at Rest No -Dyspnea with Exercise No -Comments REPORTS STATE NORMAL SYSTOLIC FUNCTION AND NORMAL FOR AGE DIASTOLIC HEART FUNCTION. [Other Core Comp Plan] [Intervention] -Attended Recognizing Stressors,Self Monitoring BP [Other Core Comp Education] -Other Core Comp Education HF Disease progression, Medication compliance,Risk factor modifications, RPD Scale/SOB management, Smoking and CAD ,Tobacco triggers, Understanding hypertension, Not Applicable -Date Completed 04/20/23 -Initials CSP -Education Summary TODAY REVIEWED MEDICATION COMPLIANCE/ TRIGGERS FOR SMOKING( HE DOESN'T FEEL ANY) REVIEWED HYPERTENSION AND WILL ASSIST TO SET UP WITH GOOD PLAN AT DISCHARGE TO MONITOR HR AND BP FOR EX ON OWN. 05/19/23-BP and HR have been WNL. [Other Core Comp Goals] -Goals Improve dyspnea ,Manage risk factors,Manage signs and symptoms of CHF ,Medication compliance, Resting BP < 130/80,Not Applicable -Comments 05/19/23-Patient was last at CR 05/05. He was to have a Cardiology follow up that week. He expressed some lightheadedness during one session. VSS, BS WNL. He felt it was due to not having glasses. Will follow up with patientMD [Medication Plan] [Intervention] -Medications ALLOPURINOL 100 MG DAILY AMLODIPINE 5 MG DAILY ASA 81 MG DAILY ATORVASTATIN 40 MG DAILY BUDESONIDE- FORMOTEROL 160- 4.5 (SYMBICORT) 2 PUFFS BID FLUTICASONE PROPION- SALMETEROL 232- 14MCG BID GABAPENTIN 300 MG QID LISINOPRIL 10 MG DAILY LORAZEPAM 0.5MG NEEDED METFORMIN 250 MG BID METOPROLOL SUCCINATE ER 50 MG DAILY NITRO 0.4MG SUBLINGUAL Q5MIN PRN -Compliance Patient reports compliance w/ prescribed meds [Medication Education] -Education Importance of medication compliance, Medication purpose, Medication schedule, Medication side effects -Date Completed 04/20/23 -Initials CSP -Education Summary HE UNDERSTANDS THE IMPORTANCE OF COMPLIANCE WITHI HIS MEDICATIONS. 05/19/23-No issues [Medication Goals] -Goals Adherence to medication compliance -Comments 05/19/23-No issues expressed, or changes when asked
[2023-11-01 15:28] VITALS: BP 118/64; BP 126/50; BMI 37.2
--- NOTE | 2023-11-01 15:45 | MHC.CR.ITD ---
[address] [phone] F: [phone] Please see additional notes from [facility] Has completed 36 sessions of CR. Cardiac Rehab Discharge/ITP Cardiac Rehab Discharge/ITP Start: 04/19/23 07:50 Freq: Status: Active Protocol: Activity Type Activity Date Activity User E-sign Co-sign Detail Recorded Client Recorded Date Recorded By Document 11/01/23 15:28 RICK Desktop 11/01/23 15:44 CHARLY 11/01/23 15:28 Cardiac Rehab Discharge/ITP [Exercise] -Accounts Payable Technician Required No -Preferred Language Romanian -Total Sessions Attended 36 -Comments NEPHROLITTHIASI S, BASAL CELL CARCINOMA, CARPEL TUNNEL SYNDRONE, CHOLECYSECTOMY, ARTHRITIS IN KNEES Discharge: A few of his visits happen to get documented under an old account but he has indeed completed a minimum of 36 visits. He began in April, and had some inconsistent attendance but did finish all his visits. BS always in good range. He has achieved a max met of 5.1 on nustep. He attended many [id number] sessions including Self pulse check and HEP and Ex safety. Medication compliance. Nutrition, Na intake and hydration. Stress management and Positive Support system. Understanding Hypertension. Dmitri had surgery to help improve his urinary incontinence in recent weeks and bounced back fairly well. It did make ex a little uncomfortable for a while. Dmitri plans to attend Phase 3 here at [facility] . He feels safest exercising here . [Functional Assessment] -6 Min Walk (distance in ft) 1,230 -Stress Test (Mode) WALK -METS Achieved 2.78 -Resting HR 58 -Resting BP 118/64 -Resting SpO2 99 -Exercise HR 103 -Exercise BP 126/50 -Exercise SpO2 95 -RPE 12 -Dyspnea 0.5 -ECG Summary NSR Discharged increased walking distance by 500 ft. -Fall Risk No [Exercise Plan] [Intervention] -Exercise Prescription NuStep, Recumbent Bike, Recumbent Elliptical, Rower,Treadmill ,UBE,Upright Bike,Weights -Duration Intensity 36 Sessions -Exercise Minutes/Day 30 -Exercise Days/Week 5 -Angina with Exercise Yes -Peak METs 5 [Home Exercise] -Mode walking -Frequency non rehab days -Intensity moderate [Exercise Education] -Exercise Education Exercise orientation, Exercise safety ,Home exercise, RPE,Self pulse checking,Signs and symptoms, Warmup/cooldown -Date Completed 04/20/23 -Initials CSP -Education Summary STATES HE IS LAZY AND WILL NEED PUSHING 05/19/23-Dmitri has obtained 3. 4METS. Lower back pain and deconditioning a factor in exercise tolerance. Will continue to increase exercises as tolerated and reinforce exercise guidelines. [Exercise Goals] -Exercise Most Days of the Week Yes -Exercise 30-45 mins/day Yes -Target HR Range +20 - +30 beats above resting -Target RPE range 11-13 -Increase METS next 30 days 0.5-1.0 METS Every two weeks -METs goal by Discharge 4 METS -Comments appears to suffer from deconditioning. 05/19/23-As above. Will reinforce home exercise program. On Dmitri exercised 42 minutes. [Nutrition] [Hyperlipidemia] -Are lab results available Yes -Hyperlipidemia Yes -Lipid Draw Date 10/03/22 -Total Cholesterol 98 -LDL 42 -HDL 26 -Tryglycerides 151 [Diabetes] -Diabetes Yes -Diabetes Type 2 -Fasting Glucose 110 -Date 07/17/21 -HbA1C 6.40 -Date 02/22/23 -Comments 06/08/23-BS have been WNL. Will follow up with MD for updated Lipids and HbA1C. He expresses some difficulty with diet;will reinforce teaching. BS have been WNL. [Weight Management] -Weight 114.3 kg -BMI 37.2 -Comments FOLLOWS DASH DIET AT TIMES. HAS MET WITH DIETARY IN THE PAST AND WENT TO CLASSES TO LEARN TO READ LABELS AND EAT HEART HEALTHY. [Drug/Alchohol Use] -Drug/Alcohol Use No -Change in Use No -Comment DOESN'T DRINK AT ALL NOW, HOWEVER BEFORE THE STENTS IN 2021 HE WAS DRINKING VODKA, HALF GALLON A WEEK. [Nutrition Plan] [Intervention] -Attended Nutrition Brochures [Nutrition Education] -Nutrition Education Diabetes and excercise, Hydration, Nutrition, Reading food labels,Signs and symptoms of Hypo/Hyper- glycemia -Date Completed 04/20/23 -Initials CSP -Education Summary HOPING TO GET RID OF DIABETES MEDICATION ALL TOGETHER. WORKING WITH PCP. HAS BEEN TO CLASSES ABOUT FOLLOWING DIETS FOR HEART HEALTH AND LABEL READING. LOW SODIUM. 06/08/23- Continues on Metformin. Rate my plate at discharge score of 62. Admission was 56 demonstrating improvement in eating habits. He plans to continue healthy eating. decreasing portion sizes and watching salt. He also plans to add more fruits and veg servings per day. [Nutrition Goals] -Goals BMI < 25, Fasting BG 80- 120 mg/dL,HDL > 40,LDL < 70, Total CHOL < 200 -Weight goal 200 -Comments JUST TO LOSE SOME WEIGHT [Psycho/Social] -Stage of Change Contemplation -Occupation Retired -Return to Work Date NA -PHQ9 Score 3 -Interpretation of Score MODERATE RISK FOR DEPRESSION -Plan of Action/Follow-up MOSTLY RELATED TO POOR SLEEP AND LOW ENERGY. HE IS DISCOURAGED WITH HIS WEIGHT AND HIS ENERGY LEVEL. ATTENDING CR TO IMPROVE HIS HEALTH -Patient Self-Reports Depression Yes: NO DESIRE TO HURT SELF AND IS HERE TO FEEL BETTER -Comments FEELS BADLY ABOU THIS WT. READY FOR CHANGE PHQ9 improved from 10 on admission to a 3 at discharge -Medication Changes No [Psycho/Social Plan] [Intervention] -Attended Patient refused consults [Psycho/Social Education] -Psycho/Social Education Advanced directives, Coping techniques, Depression and CAD,Positive support system, Relaxation Techniques, Reviewed PHQ9 Score w/pt, Sexuality and CAD,Signs and symptoms of CAD ,Stress management -Date Completed 04/20/23 -Initials CSP -Education Summary OCT 2019 HE RETIRED HAS GOOD SUPPORT SYSTEM BUT REFLECTS HIS MOTIVATION IS POOR AND HE NEEDS HELP TO MOTIVATE HIMSELF WHICH IS WHY HE WANTED TO RETURN TO CARDIAC REHAB. 05/19/23-No change. He has been attending CR. Discharge: Pt seems very motivated to maintain good cardiac health. He participates in group discussions and engages with out patients. He discusses his children's opinions of his health, but doesn't let their opinions bother him. [Psycho/Social Goals] -Goals Manage/reduce stress -Comments 05/19/23-Plan to support/ reinforce relaxation, coping techniques. He enjoyed relaxation meditation group. [Other Core Comp] [Hypertension] -Hypertention Yes -Resting BP: 126/50 -Medication Changes No -Comments received shingles vaccine 12/14/21 denies side effects [Tobacco Use] -Change in Use No [Heart Failure] -Dyspnea at Rest No -Dyspnea with Exercise No -Comments REPORTS STATE NORMAL SYSTOLIC FUNCTION AND NORMAL FOR AGE DIASTOLIC HEART FUNCTION. [Other Core Comp Plan] [Intervention] -Attended Recognizing Stressors,Self Monitoring BP [Other Core Comp Education] -Other Core Comp Education HF Disease progression, Medication compliance,Risk factor modifications, RPD Scale/SOB management, Smoking and CAD ,Tobacco triggers, Understanding hypertension, Not Applicable -Date Completed 04/20/23 -Initials CSP -Education Summary TODAY REVIEWED MEDICATION COMPLIANCE/ TRIGGERS FOR SMOKING( HE DOESN'T FEEL ANY) REVIEWED HYPERTENSION AND WILL ASSIST TO SET UP WITH GOOD PLAN AT DISCHARGE TO MONITOR HR AND BP FOR EX ON OWN. 05/19/23-BP and HR have been WNL. Discharge: reports nearly perfect medication compliance. [Other Core Comp Goals] -Goals Improve dyspnea ,Manage risk factors,Manage signs and symptoms of CHF ,Medication compliance, Resting BP < 130/80,Not Applicable -Comments 05/19/23-Patient was last at CR 05/05. He was to have a Cardiology follow up that week. He expressed some lightheadedness during one session. VSS, BS WNL. He felt it was due to not having glasses. Will follow up with patient, MD [Medication Plan] [Intervention] -Medications ALLOPURINOL 100 MG DAILY AMLODIPINE 5 MG DAILY ASA 81 MG DAILY ATORVASTATIN 40 MG DAILY BUDESONIDE- FORMOTEROL 160- 4.5 (SYMBICORT) 2 PUFFS BID FLUTICASONE PROPION- SALMETEROL 232- 14MCG BID GABAPENTIN 300 MG QID LISINOPRIL 10 MG DAILY LORAZEPAM 0.5MG NEEDED METFORMIN 250 MG BID METOPROLOL SUCCINATE ER 50 MG DAILY NITRO 0.4MG SUBLINGUAL Q5MIN PRN -Compliance Patient reports compliance w/ prescribed meds [Medication Education] -Education Importance of medication compliance, Medication purpose, Medication schedule, Medication side effects -Date Completed 04/20/23 -Initials CSP -Education Summary HE UNDERSTANDS THE IMPORTANCE OF COMPLIANCE WITHI HIS MEDICATIONS. 05/19/23-No issues Discharge: Successfully taking meds as prescribed. [Medication Goals] -Goals Adherence to medication compliance -Comments 05/19/23-No issues expressed, or changes when asked
== END 2023-11-02 07:28 | disposition home or self-care (01) ==
LOC: HO.CR 10:00
PROVIDERS: Visit Provider Internal Medicine Cardiovascular Disease
DX: I25.10 Atherosclerotic heart disease of native coronary artery without angina pectoris (principal); Z95.2 Presence of prosthetic heart valve; Z98.61 Coronary angioplasty status
CPT/HCPCS: 93798

== ENCOUNTER 2023-11-19 07:41 | Outpatient (REF) | payer MEDICARE, SELFPAY ==
[2023-04-20 12:48] VITALS: BP 140/40; BP 94/40
[2023-05-19 08:04] VITALS: BP 126/50; BMI 37.2
--- NOTE | ~2023-11-19 | CT_ITS ---
EXAMINATION: CT CHEST WITHOUT CONTRAST CLINICAL INFORMATION: Follow-up pulmonary nodule. COMPARISON: Chest CT 08/16/2023. Chest CT 08/25/2022. TECHNIQUE: Multidetector volumetric CT imaging of the chest was done. Axial MIP volume rendering provided. Sagittal and coronal reformatted images were obtained. This CT examination was performed using dose optimization techniques as appropriate, variously including the following: *Automated exposure control *Adjustment of mA and/or kV according to patient size (this includes techniques or standardized protocols for targeted exams where dose is matched to indication/reason for exam; i.e. extremities or head) *Use of iterative reconstruction technique DLP: 278 mGy-cm FINDINGS: LUNGS: Saber-sheath trachea. Diffuse airway wall thickening. Tiny centrilobular groundglass nodularity most prominent at the apices consistent with smoking-related respiratory bronchiolitis. Previously seen 2 cm groundglass nodule in the right middle lobe and 1.4 cm solid nodule in the left lower lobe, 1.0 cm nodule in the right lower lobe have resolved. Additional scattered micronodules are stable compared to 08/25/2022 and no follow-up imaging is recommended per Fleischner Society guidelines. MEDIASTINUM: No adenopathy. No pericardial effusion. Thoracic aorta is normal in caliber. CORONARY ARTERY CALCIFICATION: Three-vessel coronary calcium is present. PLEURA: There is no pleural effusion. No pleural mass or thickening. AXILLA: No lymphadenopathy. UPPER ABDOMEN: Partial gastrectomy with gastrojejunostomy. Cholecystectomy. Simple left renal cyst for which no imaging follow-up is recommended. OSSEOUS STRUCTURES: Degenerative changes in the spine CT/CT chest wo IV con IMPRESSION: Resolution of dominant pulmonary nodules identified on the previous study, presumed infectious/inflammatory. No new or suspiciously enlarging pulmonary nodules. Stable micronodules. No imaging follow-up recommended as per Fleischner Society guidelines. Fleischner guidelines were followed.
== END 2023-11-19 07:42 | disposition home or self-care (01) ==
LOC: HO.CT 07:41
PROVIDERS: PCP Internal Medicine; Visit Provider Hospitalist
DX: R91.8 Other nonspecific abnormal finding of lung field (principal)
CPT/HCPCS: 71250

== ENCOUNTER 2023-12-06 09:34 | Outpatient (AMB) | payer MEDICARE, SELFPAY ==
[2023-04-20 12:48] VITALS: BP 140/40; BP 94/40
[2023-05-19 08:04] VITALS: BP 126/50; BMI 37.2
[2023-12-06 09:40] VITALS: BP 102/52; PULSE 68; O2SAT 96; BMI 36.3
--- NOTE | 2023-12-06 09:40 | MHC.OFFVIS ---
Intake Vital Signs 12/06/23 09:40 Height 5 ft 10 in Weight 253 lb BMI 36.3 BP 102/52 L Blood Pressure Location Rt brachial Position Sitting Pulse 68 Pulse Source Doppler Pulse Oximetry (%) 96 Oxygen Delivery Method Room Air Intake Visit Reasons: COPD/CT Chest Follow Up Allergies No Known Allergies Allergy (Verified 12/06/23 09:45) HPI HPI Comments History of Present Illness Details The patient is a 78-year-old gentleman with a question history of COPD who presents with worsening dyspnea and abnormal CT scan of the chest. He states for the last several months the patient does get short of breath with activity. If he climbs up at down stairs she does get short of breath. Ndso-gp-ecxxylep severity. Apparently he was seen in the ER for worsening respiratory symptoms. 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 Therefore, the patient is referred to Pulmonary. Overall the patient feels well. He stays active. He denies any significant coughing. 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 In addition to that he does have a smoking history. He also complains of daytime drowsiness. He has a hard time sleeping in does wake up short of breath at times. The patient has underlying COPD and based on hypoxia he should have a overnight oximetry to see if he qualifies for nocturnal oxygen. ?07/04/2020 The patient is here for pulmonary follow-up visit. Overall he is doing better from a respiratory status. Since we last spoke the patient was evaluated for a GI bleed found to have significant gastritis and peptic ulcer disease likely from his drinking dependency. He is now own not drinking alcohol at all. In the meantime he also was evaluated for some chest discomfort and had further cardiac evaluations at [facility] was found to have triple-vessel disease and now plan to have cardiac surgery. For the last 3 weeks he has been without any alcohol and he has been taking care itself. Her weight lost 6 lb any feels better than he had in a long time. ?07/29/2020 The patient is here for pulmonary follow-up visit. Overall the patient is doing well from a respiratory status. He did have his cardiac catheterization demonstrating multiple vessel disease. He will follow up with Cardiology regarding possible interventions surgical versus percutaneous. In the meantime he continues with this cardioprotective medications. He continues taking all his respiratory medicines. He did have pulmonary function studies done today demonstrating lqpl-de-vxeyjaqd COPD with a moderate diffusion impairment. The patient also has significant tracheomalacia. Explained to the patient that he does have increased moderate risk for pulmonary perioperative complications. These risks include; atelectasis, hypoxia, pneumonia and prolonged mechanical ventilation. At this point the patient is medically optimized from a pulmonary standpoint in March go ahead and have surgery. 02/24/2022 this is a pulmonary follow-up visit. The patient is a 76-year-old gentleman who has been lost to follow-up now for several years. He has underlying COPD. Apparently had worsening respiratory symptoms and he came into the emergency department where he was diagnosed with a left lower lobe pneumonia. He was admitted for COPD exacerbation as well. He did require oxygen. He was subsequently discharged home on Vantin azithromycin and also prednisone. He also has inhalers. He has been concerned about the inhalers because of the side effects. I did reassure him that he should be taking it. In addition to that he did benefit from nebulizer. Therefore will make sure that he gets a nebulizer before he goes home. He still having some issues with dyspnea on exertion. We did taken for 6 minute walk test the patient did qualify for oxygen with activity with a conserving device. 2 L pulse. Will submit that to the local [employer] company in order for him to start the oxygen. He also should use at nighttime while sleeping. The patient needs to have repeat pulmonary function studies to assess his lung capacity. He also has underlying coronary artery disease and they are considering cardiac surgery for him will continue to reassess him from a pulmonary standpoint. 04/08/2022 the patient is here for a pulmonary follow-up visit. Since we last spoke the patient again was admitted to the hospital with chest discomfort. He was then referred to [facility] where he was evaluated by Cardiac surgery. Ultimately underwent a cardiac catheterization in had to stent placement. Therefore, he did not need open her surgery. After he was discharged from the hospital he started developing worsening shortness of breath cough and fever. He was admitted again to the [facility] with now pneumonia. The pneumonia was on the left side. The patient was given antibiotics and he improved. He was upset that pulmonary did not see him while he was there. However, Pulmonary was not consulted. I did advise him that the next time if it does happen he can always call our office so we can request a consultation. She will then have him undergo pulmonary function studies and he should start pulmonary rehab / cardiac rehab. The patient also would benefit from repeating the chest x-ray to make sure that that abnormal left lower lobe airspace disease improves in the next couple months. the patient is also using the oxygen therapy. He needs a pbx wire chief tank. I did request a pulse conserving device in order for him to get back appropriate oxygen and be able to carry the oxygen tank with him. 08/10/2022 the patient is here for a pulmonary follow-up visit. The patient has had a very vent full spring and summer. Apparently he has been admitted multiple times with left lower lobe pneumonias and also underwent a percutaneous cardiac intervention with couple stents placed for the heart. Subsequently after that he then developed another bout of pneumonia this time on the right side. He has been concerned with the multiple pneumonias. He does get x-rays demonstrating clearing of the process after worse. He has not been using the oxygen and he wants the oxygen to be picked up at this time and I will do may make an order for that to happen. The patient also has been having issues with wheezing chest tightness as well. This is moderate severity. The patient has had very abnormal x-rays. Therefore I will request a CT scan of the chest to better address the recurrent pneumonias. The patient will also undergo blood work and start a course of antibiotics at this time. The patient does benefit from prednisone although he has concerns about his elevated sugars. Therefore will do a low-dose prednisone at this time. 06/01/2023 the patient is here for a pulmonary follow-up visit. He continues to have a significant productive cough. Difficult to expectorate. Moderate severity. The cough medication with codeine was not very effective for him. He kept coughing through the night. He was given a different cough medication in the past that seemed to work better. I do not have any records of it and we did call 3 different pharmacy tried identify the medication but still not clear. He will continue taking the guaifenesin with codeine for now. In meantime he did have a CT scan of the chest that we did evaluate. Appears to have a small right upper lobe nodular density measuring 1 cm. Although it is very ill-defined and indeed could be related to scarring. The patient also has some treating budding the right lower lobe area and has some chronic airway issues. 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 Will start CPT with acapella valve. 09/01/2023 the patient is here for a hospital follow-up visit. The patient apparently did have COVID-19 and did have significant acute on chronic respiratory failure along with COVID pneumonia. The patient did have a CT scan of the chest while he was in the hospital demonstrating areas of nodular ground-glass densities bilaterally. Also some lymphadenopathy. The ground-glass nodular densities were not present on his last ct scan last year. Therefore, will go ahead and repeat the CT scan in 3 months' time to make sure this large ground-glass nodular densities resolved. If they are still present then additional diagnostic interventions will be warranted. 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 It is very limited very severe. Will start him on azithromycin 3 times a week to see if we can help him with decreased mucus secretions and chronic bronchitis. In the future could consider referral to Interventional Pulmonary. But, stents in these central airways can be problematic with they can be dislodged. tracheoplasty is an option but with based on his age and his comorbidities is not worth the risk. 12/06/2023 the patient is here for a pulmonary follow-up visit. The patient overall has been feeling better. Although he continues with persistent cough. Also underwent surgery for problems with his bladder prolapse. This appears to be healing well. He did have a repeat CT scan of the chest demonstrating interval resolution of the ground-glass nodular densities suggesting more inflammatory infectious etiology. 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 Very much narrow. The patient does not want undergo surgery. I do not believe a stent will be helpful as this is only a temporary fix. He did respond well to the azithromycin 3 times a week and also does well with the codeine cough syrup. He had 1 prescription last than 4 a prolonged period of time so therefore we know that he has not over taking the codeine syrup. Does have a significant condition that will result in a chronic cough. He is also responding well to the AirDuo inhaler. This is a lot more financially feasible for him and it is helping. [facility] Medical History (Updated 09/01/23 @ 21:42 by Thomas Steele MD) Pulmonary nodules COPD (chronic obstructive pulmonary disease) Tracheobronchomalacia Pulmonary nodule COPD (chronic obstructive pulmonary disease) Migrated colon stent Diabetes Hospital-acquired pneumonia Pneumonia Nephrolithiasis Prostate cancer Obesity MAYA (obstructive sleep apnea) Right bundle branch block (RBBB) on electrocardiogram (ECG) Hyperlipidemia HTN (hypertension) Chronic stable angina CAD (coronary artery disease) Surgical History Hx of arthroscopy of knee Hx of lithotripsy Stented coronary artery Hx of cardiac cath Hx laparoscopic cholecystectomy History of basal cell carcinoma (BCC) excision History of carpal tunnel release Hx of hernia repair History of eye surgery Hx of spinal surgery Family History Father CVD (cardiovascular disease) Mother CVD (cardiovascular disease) Brother CVD (cardiovascular disease) Social History Household Members: Spouse Housing: House Do you presently have visiting nurse or other home services: No Alcohol intake: never Patient Tobacco Use Status: Former Tobacco user Quit Date: 2009 Tobacco use type: Cigarette Cigarette Packs Per Day: 1 Years Smoked: 30+ Advance Directives Date on File: 07/17/21 service: No Current occupational status: retired Review of Systems Const Denies fever(s) Eyes Denies loss of vision ENT Reports nasal congestion and Reports nasal discharge Card Denies chest pain and Reports dyspnea on exertion Resp Denies chest congestion, Reports cough, Denies hemoptysis, Reports dyspnea on exertion and Denies wheezing GI Reports no additional complaints Reports no additional complaints Musc Reports no additional complaints Skin/Breast Denies rash Neuro Reports no additional complaints and Denies loss of vision Endo Reports no additional complaints Aller/Immun Denies wheezing Physical Exam Vital Signs: Last Vital Signs Pulse 68 12/06/23 09:40 BP 102/52 L 12/06/23 09:40 Pulse Ox 96 12/06/23 09:40 Oxygen Delivery Method Room Air 12/06/23 09:40 BMI result Body Mass Index 36.3 Const General: alert Neck Neck: Yes normal visual inspection, Yes full ROM and Yes no lymphadenopathy Chest Chest palpation & inspection: normal inspection of the chest Resp Auscultation: no rhonchi, no wheezes and diminished lung sounds Cardio Rate: regular rate Rhythm: regular rhythm Heart sounds: S1 normal heart sound present and S2 normal heart sound present GI Palpation (GI): Soft to palpation and nontender Auscultation: normal bowel sounds Skin General skin exam: rashes and/or lesions noted Results Reviewed Results Reviewed: [address] [address] [address] Scan Report Signed Patient: Dmitri Darnell MR#: [id number] : 1945 Acct:[id number] Age/Sex: 78 / M ADM Date: 11/19/23 Loc: .CT Attending Dr: Thomas Steele MD Ordering Physician: Thomas Steele MD Date of Service: 11/19/23 Procedure(s): CT chest wo IV con Accession Number(s): [id number] cc: Jaxon Coffman MD; Thomas Steele MD~ EXAMINATION: CT CHEST WITHOUT CONTRAST CLINICAL INFORMATION: Follow-up pulmonary nodule. COMPARISON: Chest CT 08/16/2023. Chest CT 08/25/2022. TECHNIQUE: Multidetector volumetric CT imaging of the chest was done. Axial MIP volume rendering provided. Sagittal and coronal reformatted images were obtained. This CT examination was performed using dose optimization techniques as appropriate, variously including the following: *Automated exposure control *Adjustment of mA and/or kV according to patient size (this includes techniques or standardized protocols for targeted exams where dose is matched to indication/reason for exam; i.e. extremities or head) *Use of iterative reconstruction technique DLP: 278 mGy-cm FINDINGS: LUNGS: Saber-sheath trachea. Diffuse airway wall thickening. Tiny centrilobular groundglass nodularity most prominent at the apices consistent with smoking-related respiratory bronchiolitis. Previously seen 2 cm groundglass nodule in the right middle lobe and 1.4 cm solid nodule in the left lower lobe, 1.0 cm nodule in the right lower lobe have resolved. Additional scattered micronodules are stable compared to 08/25/2022 and no follow-up imaging is recommended per Fleischner Society guidelines. MEDIASTINUM: No adenopathy. No pericardial effusion. Thoracic aorta is normal in caliber. CORONARY ARTERY CALCIFICATION: Three-vessel coronary calcium is present. PLEURA: There is no pleural effusion. No pleural mass or thickening. AXILLA: No lymphadenopathy. UPPER ABDOMEN: Partial gastrectomy with gastrojejunostomy. Cholecystectomy. Simple left renal cyst for which no imaging follow-up is recommended. OSSEOUS STRUCTURES: Degenerative changes in the spine CT/CT chest wo IV con IMPRESSION: Resolution of dominant pulmonary nodules identified on the previous study, presumed infectious/inflammatory. No new or suspiciously enlarging pulmonary nodules. Stable micronodules. No imaging follow-up recommended as per Fleischner Society guidelines. Fleischner guidelines were followed. Dictated By: Artem Aiken MD Signed By: <Electronically signed by Artem Aiken MD in OV> 11/25/23 1028 DD/ 0827 TD/TT: Horticulturalist: CAROLE Assessment & Plan Assessment & Plan (1) COPD (chronic obstructive pulmonary disease): Comment: 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 Code(s): J44.9 - Chronic obstructive pulmonary disease, unspecified Qualifiers: COPD type: COPD with acute exacerbation Qualified Code(s): J44.1 - Chronic obstructive pulmonary disease with (acute) exacerbation (2) CAD (coronary artery disease): Comment: s/p PCI x 2 stents 04/05 Code(s): I25.10 - Atherosclerotic heart disease of [place] coronary artery without angina pectoris Qualifiers: Associated angina: with other forms of angina Coronary Disease-Associated Artery/Lesion type: unspecified vessel or lesion type [place] vs. transplanted heart: unspecified whether [place] or transplanted heart Qualified Code(s): I25.118 - Atherosclerotic heart disease of [place] coronary artery with other forms of angina pectoris (3) Pulmonary nodule: Code(s): R91.1 - Solitary pulmonary nodule (4) Tracheobronchomalacia: Code(s): J39.8 - Other specified diseases of upper respiratory tract Plan continue airduo Short-acting beta agonist as needed cough syrup restart Azithromycin MWF, EKG acapella valve for CPT Follow-up in 4-6 months Orders: Orders ECG 12 lead EKG Today J44.9 - Chronic obstructive pulmonary disease, unspecified Medications: New codeine-guaifenesin 10-100 mg/5 mL 10 mL PO Q4H 10 days PRN 473 mL 0RF cough Refilled azithromycin Take 1 tablet on Wednesday/Wednesday/Wednesday 250 mg PO 3XW 28 days 12 tabs 6RF K21.9 - Gastro-esophageal reflux disease without esophagitis Coding Level of Care Code Est Pt Level 4 (77653) Diagnoses Chronic obstructive pulmonary disease with acute exacerbation J44.1 COPD type: COPD with acute exacerbation Coronary artery disease with other form of angina pectoris, unspecified vessel or lesion type, unspecified whether [place] or transplanted heart I25.118 Associated angina: with other forms of angina Coronary Disease-Associated Artery/Lesion type: unspecified vessel or lesion type [place] vs. transplanted heart: unspecified whether [place] or transplanted heart Pulmonary nodule R91.1 Tracheobronchomalacia J39.8 Time Spent (min) 18
== END 2023-12-06 09:59 | disposition home or self-care (01) ==
PROVIDERS: PCP Internal Medicine; Visit Provider Hospitalist
DX: J44.1 Chronic obstructive pulmonary disease with (acute) exacerbation (principal); I25.118 Atherosclerotic heart disease of native coronary artery with other forms of angina pectoris; R91.1 Solitary pulmonary nodule; J39.8 Other specified diseases of upper respiratory tract
CPT/HCPCS: 99214

== ENCOUNTER → 2023-12-06 09:34 | Outpatient (BNVA) | payer MEDICARE, SELFPAY | PROVIDERS: PCP Internal Medicine; Visit Provider Hospitalist | DX: J44.1 Chronic obstructive pulmonary disease with (acute) exacerbation (principal); I25.118 Atherosclerotic heart disease of native coronary artery with other forms of angina pectoris; R91.1 Solitary pulmonary nodule; J39.8 Other specified diseases of upper respiratory tract | CPT/HCPCS: 99212 ==

== ENCOUNTER 2024-01-21 16:37 | Outpatient (REF) | payer MEDICARE, SELFPAY ==
--- NOTE | ~2024-01-21 | XR_ITS ---
EXAMINATION: XR CHEST CLINICAL INFORMATION: Cough COMPARISON: 08/02/2023 TECHNIQUE: 2 views of the chest were obtained. FINDINGS: The heart and pulmonary vessels appear normal. Some minimal scarring or atelectasis is present at the left lung base, slightly improved when compared to prior. No pleural effusions, consolidations or lung masses are seen. There is no evidence of CHF. Surgical clips are present in the upper abdomen. XR/XR chest 2V IMPRESSION: No acute intrathoracic disease. Minimal scarring or atelectasis left lung base.
[2024-01-21 17:50] LABS: Influenza A PCR NEGATIVE (Negative); Influenza B PCR NEGATIVE (Negative); Resp Syncy Virus RNA Qual PCR NEGATIVE (Negative); SARS COV2 PCR INHOUSE POSITIVE (Negative)
== END 2024-01-21 16:38 | disposition home or self-care (01) ==
LOC: HO.XRAY 16:37
PROVIDERS: PCP Internal Medicine; Visit Provider Internal Medicine
DX: R05.9 Cough, unspecified (principal); R50.9 Fever, unspecified; R09.89 Other specified symptoms and signs involving the circulatory and respiratory systems
CPT/HCPCS: 0241U; 71046

== ENCOUNTER 2024-03-23 10:42 | Outpatient (AMB) | payer MEDICARE, SELFPAY ==
[2022-02-03 06:38] VITALS: BP 124/60; BMI 37.7
[2024-03-23 11:00] VITALS: BP 120/70; PULSE 80; BMI 37.3
--- NOTE | 2024-03-23 11:00 | MHC.OFFVIS ---
Vital Signs 03/23/24 11:00 Height 5 ft 10 in Weight 260 lb 2.327 oz BMI 37.3 BP 120/70 Blood Pressure Location Lt brachial Position Sitting Pulse 80 Intake Visit Reasons: 1 yr f/up Intake Note: 1 year follow-up with ekg c/o sob and chest pain Glaze Wiper Required: No Allergies No Known Allergies Allergy (Verified 12/06/23 09:45) Medication List - Last Reconciled 03/23/24 by Elver Gale MD allopurinol 100 mg PO DAILY amlodipine 5 mg PO DAILY aspirin 81 mg PO DAILY atorvastatin 40 mg PO BEDTIME blood sugar diagnostic (FreeStyle Lite Strips) Test four times a day or as directed. blood-glucose meter (FreeStyle Lite Meter kit) As Directed cyanocobalamin (vitamin B-12) 1,000 mcg PO DAILY fluticasone propion-salmeterol 232-14 mcg/actuation 1 inh inhalation BID ajjndhhigwi-fpjaajilf-umdexhdu 200-62.5-25 mcg (Trelegy Ellipta) 1 inh inhalation DAILY 30 days gabapentin (Neurontin) 300 mg PO QID PRN ketoconazole 2% topical lancets (FreeStyle Lancets) Test four times a day or as directed. lorazepam 1 tab PO BEDTIME PRN metformin 250 mg PO BIDWM metoprolol succinate ER 50 mg PO DAILY nitroglycerin 0.4 mg sublingual Q5M PRN valsartan 40 mg PO DAILY HPI Comments Details: Dmitri comes for follow-up. He continues to experience symptoms exertional shortness of breath especially when he walked outside for a block. He said he had to stop and could not tolerated. He had no chest discomfort at that time. However he says when he goes up and down the stairs he does get left-sided thoracic pain different than his anginal pain. He said he has not been using his bronchodilator therapy as prescribed. He is taking all his cardiac meds. He had a myocardial perfusion imaging last May which was within normal limits. [facility] Medical History Pulmonary nodules COPD (chronic obstructive pulmonary disease) Tracheobronchomalacia Pulmonary nodule COPD (chronic obstructive pulmonary disease) Migrated colon stent Diabetes Hospital-acquired pneumonia Pneumonia Nephrolithiasis Prostate cancer Obesity MAYA (obstructive sleep apnea) Right bundle branch block (RBBB) on electrocardiogram (ECG) Hyperlipidemia HTN (hypertension) Chronic stable angina CAD (coronary artery disease) Surgical History Hx of arthroscopy of knee Hx of lithotripsy Stented coronary artery Hx of cardiac cath Hx laparoscopic cholecystectomy History of basal cell carcinoma (BCC) excision History of carpal tunnel release Hx of hernia repair History of eye surgery Hx of spinal surgery Family History Father CVD (cardiovascular disease) Mother CVD (cardiovascular disease) Brother CVD (cardiovascular disease) Social History Household Members: Spouse Housing: House Do you presently have visiting nurse or other home services: No Alcohol intake: never Patient Tobacco Use Status: Former Tobacco user Quit Date: 2009 Tobacco use type: Cigarette Cigarette Packs Per Day: 1 Years Smoked: 30+ Advance Directives Date on File: 07/17/21 service: No Current occupational status: retired Review of Systems Const Denies chills, Denies fatigue, Denies fever(s), Denies frequent falls, Denies weakness, Denies weight gain and Denies weight loss ENT Denies dizziness Card Denies chest pain, Denies leg edema, Denies lightheadedness, Denies palpitations, Denies dyspnea, Denies dyspnea on exertion, Denies orthopnea and Denies other (loss of consciousness) Resp Denies cough, Denies dyspnea and Denies dyspnea on exertion GI Denies hematochezia and Denies change in stool character Musc Denies abnormal gait, Denies muscle weakness, Denies numbness, Denies radiating pain into limb and Denies tingling Neuro Denies abnormal gait, Denies dizziness, Denies frequent falls, Denies numbness, Denies tingling and Denies weakness Endo Denies fatigue and Denies palpitations Physical Exam Vital Signs: Last Vital Signs Pulse 80 03/23/24 11:00 BP 120/70 03/23/24 11:00 BMI result Body Mass Index 37.3 Const General: cooperative, comfortable, no acute distress, alert and awake Nutritional Appearance: obese Orientation/consciousness: patient oriented x3 Limitations: no limitations Neck Neck: Yes trachea midline, Yes supple and Yes no JVD Chest Chest palpation & inspection: normal inspection of the chest Resp Effort & Inspection: normal respiratory effort Auscultation: no rhonchi, wheezes (Occasional) and diminished lung sounds Cardio Jugular venous distension: no JVD Palpation: normal PMI Rate: regular rate Rhythm: regular rhythm Heart sounds: S1 normal heart sound present and S2 normal heart sound present GI Auscultation: normal bowel sounds Skin General skin exam: no rashes or lesions noted Neuro General: patient oriented x3 and no focal motor deficits Extrem General: Yes no clubbing, cyanosis or edema Psych Appearance: grossly normal Office Procedures EKG Details: EKG shows normal sinus rhythm with right bundle-branch block with left axis deviation, unchanged from before [id number], Complete Assessment & Plan Assessment & Plan (1) CAD (coronary artery disease): Comment: s/p PCI x 2 stents 04/05 Code(s): I25.10 - Atherosclerotic heart disease of [place] coronary artery without angina pectoris Category: Medical Qualifiers: Coronary Disease-Associated Artery/Lesion type: unspecified vessel or lesion type [place] vs. transplanted heart: unspecified whether [place] or transplanted heart Associated angina: with other forms of angina Qualified Code(s): I25.118 - Atherosclerotic heart disease of [place] coronary artery with other forms of angina pectoris Plan: CAD with multivessel PCI in the past. Patient currently does not have very typical symptoms of angina. A myocardial perfusion imaging within the last year in May which was within normal limits. Likelihood of progressive coronary disease and ischemia is less likely although could have microvascular disease. He is currently on dual antianginal therapy with metoprolol and amlodipine. If he continues to have exertional chest pain, can use Ranexa as empiric therapy to see if this will improve. Although I think the symptoms are probably related to his underlying COPD and not utilizing his bronchodilators adequately. See below. Continue aspirin. Continue high-intensity statin therapy. Target goal LDL less than 70 mg/dL. Blood pressure is currently well optimized. Diabetes under your care with goal hemoglobin A1c less than 7%. Encouraged to continue to participate in physical activity and gradually increase activity level. Participate in weight loss program was discussed advised lipid panel in near future. (2) SOB (shortness of breath) on exertion: Code(s): R06.02 - Shortness of breath Category: Medical Plan: Shortness of breath on exertion appears to be undertreated COPD syndrome. Encouraged to participate in more regular therapy and if his symptoms persist may consider pulmonary rehab and/or treatment with a empiric antianginal therapy as about to see if his chest pain syndrome hold improved. (3) HTN (hypertension): Code(s): I10 - Essential (primary) hypertension Category: Medical Plan: Hypertension which is currently well optimized advised to monitor blood pressure at home maintain a log. Goal blood pressure less than 130/84. Low-salt diet was discussed continue participate in regular physical activity. Will follow up in the clinic in 1 year's time, sooner p.r.n.. Thank you for allowing me to partake in his care Coding Level of Care Code Est Pt Level 4 (97797) Diagnoses Coronary artery disease with other form of angina pectoris, unspecified vessel or lesion type, unspecified whether [place] or transplanted heart I25.118 Coronary Disease-Associated Artery/Lesion type: unspecified vessel or lesion type [place] vs. transplanted heart: unspecified whether [place] or transplanted heart Associated angina: with other forms of angina SOB (shortness of breath) on exertion R06.02 HTN (hypertension) I10 CPT Codes EKG - CPT: 95214-[id number], Complete ([id number])
== END 2024-03-23 11:33 | disposition home or self-care (01) ==
PROVIDERS: Visit Provider Internal Medicine Cardiovascular Disease
DX: I25.118 Atherosclerotic heart disease of native coronary artery with other forms of angina pectoris (principal); R06.02 Shortness of breath; I10 Essential (primary) hypertension
CPT/HCPCS: 93010; 99214

== ENCOUNTER → 2024-03-23 10:42 | Outpatient (BNVA) | payer MEDICARE, SELFPAY | PROVIDERS: Visit Provider Internal Medicine Cardiovascular Disease | DX: I25.118 Atherosclerotic heart disease of native coronary artery with other forms of angina pectoris (principal); I10 Essential (primary) hypertension; R06.02 Shortness of breath | CPT/HCPCS: 93005; 99212 ==

== ENCOUNTER 2024-03-29 09:44 | Outpatient (AMB) | payer MEDICARE, SELFPAY ==
[2024-03-29 09:46] VITALS: BP 127/58; PULSE 75; O2SAT 92; BMI 37.6
--- NOTE | 2024-03-29 09:46 | A.OFFVIS_ITS ---
Vital Signs 3 03/29/24 09:46 Height 5 ft 10 in Weight 262 lb 5.601 oz BMI 37.6 BP 127/58 L Blood Pressure Location Lt brachial Position Sitting Pulse 75 Pulse Source Doppler Pulse Oximetry (%) 92 Oxygen Delivery Method Room Air Intake Visit Reasons: COPD/CT Chest Follow Up Allergies No Known Allergies Allergy (Verified 03/29/24 09:54) HPI Comments Details: The patient is a 78-year-old gentleman with a question history of COPD who presents with worsening dyspnea and abnormal CT scan of the chest. He states for the last several months the patient does get short of breath with activity. If he climbs up at down stairs she does get short of breath. [id number]-[id number] severity. Apparently he was seen in the ER for worsening respiratory symptoms. 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 Therefore, the patient is referred to Pulmonary. Overall the patient feels well. He stays active. He denies any significant coughing. 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 In addition to that he does have a smoking history. He also complains of daytime drowsiness. He has a hard time sleeping in does wake up short of breath at times. The patient has underlying COPD and based on hypoxia he should have a overnight oximetry to see if he qualifies for nocturnal oxygen. ? 08/10/2022 the patient is here for a pulmonary follow-up visit. The patient has had a very vent full spring and summer. Apparently he has been admitted multiple times with left lower lobe pneumonias and also underwent a percutaneous cardiac intervention with couple stents placed for the heart. Subsequently after that he then developed another bout of pneumonia this time on the right side. He has been concerned with the multiple pneumonias. He does get x-rays demonstrating clearing of the process after worse. He has not been using the oxygen and he wants the oxygen to be picked up at this time and I will do may make an order for that to happen. The patient also has been having issues with wheezing chest tightness as well. This is moderate severity. The patient has had very abnormal x-rays. Therefore I will request a CT scan of the chest to better address the recurrent pneumonias. The patient will also undergo blood work and start a course of antibiotics at this time. The patient does benefit from prednisone although he has concerns about his elevated sugars. Therefore will do a low-dose prednisone at this time. 06/01/2023 the patient is here for a pulmonary follow-up visit. He continues to have a significant productive cough. Difficult to expectorate. Moderate severity. The cough medication with codeine was not very effective for him. He kept coughing through the night. He was given a different cough medication in the past that seemed to work better. I do not have any records of it and we did call 3 different pharmacy tried identify the medication but still not clear. He will continue taking the guaifenesin with codeine for now. In meantime he did have a CT scan of the chest that we did evaluate. Appears to have a small right upper lobe nodular density measuring 1 cm. Although it is very ill-defined and indeed could be related to scarring. The patient also has some treating budding the right lower lobe area and has some chronic airway issues. 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 Will start CPT with acapella valve. 09/01/2023 the patient is here for a hospital follow-up visit. The patient apparently did have COVID-19 and did have significant acute on chronic respiratory failure along with COVID pneumonia. The patient did have a CT scan of the chest while he was in the hospital demonstrating areas of nodular ground- glass densities bilaterally. Also some lymphadenopathy. The ground-glass nodular densities were not present on his last ct scan last year. Therefore, will go ahead and repeat the CT scan in 3 months' time to make sure this large ground-glass nodular densities resolved. If they are still present then additional diagnostic interventions will be warranted. 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 It is very limited very severe. Will start him on azithromycin 3 times a week to see if we can help him with decreased mucus secretions and chronic bronchitis. In the future could consider referral to Interventional Pulmonary. But, stents in these central airways can be problematic with they can be dislodged. tracheoplasty is an option but with based on his age and his comorbidities is not worth the risk. 12/06/2023 the patient is here for a pulmonary follow-up visit. The patient overall has been feeling better. Although he continues with persistent cough. Also underwent surgery for problems with his bladder prolapse. This appears to be healing well. He did have a repeat CT scan of the chest demonstrating interval resolution of the ground-glass nodular densities suggesting more inflammatory infectious etiology. 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 Very narrow. The patient does not want undergo surgery. I do not believe a stent will be helpful as this is only a temporary fix. He did respond well to the azithromycin 3 times a week and also does well with the codeine cough syrup. He had 1 prescription last than 4 a prolonged period of time so therefore we know that he has not over taking the codeine syrup. Does have a significant condition that will result in a chronic cough. He is also responding well to the AirDuo inhaler. This is a lot more financially feasible for him and it is helping. 03/29/2024 the patient is here for a pulmonary follow-up visit. Overall the patient has been well. He had stopped his respiratory regimen in part because he was feeling better. Although then started noticing worsening respiratory symptoms. He did restart the inhaler and also the nebulized therapy. He also started the chest PT with the Acapella valve. The patient also restarted the azithromycin. We did review and personally reviewed his last CT scan of the chest done November 2023. Appears that the nodular densities have significantly improved which is very reassuring. Therefore, he is responding to his current regimen in addition to the azithromycin. He should continue the therapy as long as his QT interval is within normal limits. He will get the Prevnar 20 vaccine today that will be lifelong coverage for pneumococcal pneumonia. otherwise patient is Complaining of worsening hoarseness. Explained to him that it could be from the respiratory medication. He is to make sure to rinse well ideally with mouthwash. Still he does have significant cobblestoning postnasal drip. he will start using nasal steroids therapy. I will also refer him to ENT just to have a baseline laryngoscopy and make sure he does not have any thing abnormal with the vocal cords. [facility] Medical History (Updated 03/29/24 @ 10:04 by Thomas Steele MD) Hoarseness Pulmonary nodules COPD (chronic obstructive pulmonary disease) Tracheobronchomalacia Pulmonary nodule COPD (chronic obstructive pulmonary disease) Migrated colon stent Diabetes Hospital-acquired pneumonia Pneumonia Nephrolithiasis Prostate cancer Obesity MAYA (obstructive sleep apnea) Right bundle branch block (RBBB) on electrocardiogram (ECG) Hyperlipidemia HTN (hypertension) Chronic stable angina CAD (coronary artery disease) Surgical History Hx of arthroscopy of knee Hx of lithotripsy Stented coronary artery Hx of cardiac cath Hx laparoscopic cholecystectomy History of basal cell carcinoma (BCC) excision History of carpal tunnel release Hx of hernia repair History of eye surgery Hx of spinal surgery Family History Father CVD (cardiovascular disease) Mother CVD (cardiovascular disease) Brother CVD (cardiovascular disease) Social History Household Members: Spouse Housing: House Do you presently have visiting nurse or other home services: No Alcohol intake: never Patient Tobacco Use Status: Former Tobacco user Quit Date: 2009 Tobacco use type: Cigarette Cigarette Packs Per Day: 1 Years Smoked: 30+ Advance Directives Date on File: 07/17/21 service: No Current occupational status: retired Review of Systems Const Denies fever(s) Eyes Denies loss of vision ENT Reports hoarseness, Reports nasal congestion, Reports nasal discharge and Reports post nasal drip Card Denies chest pain and Reports dyspnea on exertion Resp Denies chest congestion, Reports cough, Denies hemoptysis, Reports dyspnea on exertion and Denies wheezing GI Reports no additional complaints Reports no additional complaints Musc Reports no additional complaints Skin/Breast Denies rash Neuro Reports no additional complaints and Denies loss of vision Endo Reports no additional complaints Aller/Immun Denies wheezing Physical Exam Vital Signs: Last Vital Signs Pulse 75 03/29/24 09:46 BP 127/58 L 03/29/24 09:46 Pulse Ox 92 03/29/24 09:46 Oxygen Delivery Method Room Air 03/29/24 09:46 BMI result Body Mass Index 37.6 Const General: alert HEENT Throat: Yes posterior oropharynx abnormal and Yes cobblestoning Neck Neck: Yes normal visual inspection, Yes full ROM and Yes no lymphadenopathy Chest Chest palpation & inspection: normal inspection of the chest Resp Effort & Inspection: normal respiratory effort Auscultation: no rhonchi, no wheezes and diminished lung sounds Cardio Rate: regular rate Rhythm: regular rhythm Heart sounds: S1 normal heart sound present and S2 normal heart sound present GI Palpation (GI): Soft to palpation and nontender Auscultation: normal bowel sounds Skin General skin exam: rashes and/or lesions noted Results Reviewed Results Reviewed: Assessment & Plan Assessment & Plan (1) CAD (coronary artery disease): Comment: s/p PCI x 2 stents 04/05 Code(s): I25.10 - Atherosclerotic heart disease of [place] coronary artery without angina pectoris Category: Medical Qualifiers: Associated angina: with other forms of angina Coronary Disease- Associated Artery/Lesion type: unspecified vessel or lesion type [place] vs. transplanted heart: unspecified whether [place] or transplanted heart Qualified Code(s): I25.118 - Atherosclerotic heart disease of [place] coronary artery with other forms of angina pectoris (2) Pulmonary nodule: Code(s): R91.1 - Solitary pulmonary nodule Category: Medical (3) Tracheobronchomalacia: Code(s): J39.8 - Other specified diseases of upper respiratory tract Category: Medical (4) Hoarseness: Code(s): R49.0 - Dysphonia Category: Medical Plan continue airduo Short-acting beta agonist as needed strat fluticasone nasal spray cough syrup restart Azithromycin MWF, EKG acapella valve for CPT ENT referral for evaluation of persistent hoarseness. Follow-up in 4-6 months Orders: Orders 2 Pneumococcal 20 Immunization Today Z23 - Encounter for immunization Referrals 2 Ear/Nose/Throat Referral R49.0 - Dysphonia Medications: New 2 fluticasone propionate 50 mcg/actuation 2 sprays intranasal DAILY 30 days 15.8 mL 11RF J31.0 - Chronic rhinitis Coding Level of Care Code Est Pt Level 4 (40949) Diagnoses Coronary artery disease with other form of angina pectoris, unspecified vessel or lesion type, unspecified whether [place] or transplanted heart I25.118 Associated angina: with other forms of angina Coronary Disease-Associated Artery/Lesion type: unspecified vessel or lesion type [place] vs. transplanted heart: unspecified whether [place] or transplanted heart Pulmonary nodule R91.1 Tracheobronchomalacia J39.8 Hoarseness R49.0 Time Spent (min) 17
== END 2024-03-29 10:16 | disposition home or self-care (01) ==
PROVIDERS: PCP Internal Medicine; Visit Provider Hospitalist
DX: I25.118 Atherosclerotic heart disease of native coronary artery with other forms of angina pectoris (principal); R91.1 Solitary pulmonary nodule; J39.8 Other specified diseases of upper respiratory tract; R49.0 Dysphonia; Z23 Encounter for immunization
CPT/HCPCS: 99214

== ENCOUNTER → 2024-03-29 09:44 | Outpatient (BNVA) | payer MEDICARE, SELFPAY | PROVIDERS: PCP Internal Medicine; Visit Provider Hospitalist | DX: R91.1 Solitary pulmonary nodule (principal); J39.8 Other specified diseases of upper respiratory tract; R49.0 Dysphonia; I25.118 Atherosclerotic heart disease of native coronary artery with other forms of angina pectoris; Z95.5 Presence of coronary angioplasty implant and graft; Z23 Encounter for immunization | CPT/HCPCS: 90471; 90677; 99212 ==

== ENCOUNTER 2024-05-25 10:01 | Outpatient (REF) | payer MEDICARE, SELFPAY ==
[2024-05-25 10:41] LABS: Estimated Average Glucose 140 mg/dL; Hemoglobin A1c % 6.5 % (<6.0)
[2024-05-25 11:36] LABS: Anion Gap 9 (12-20); Blood Urea Nitrogen 16 mg/dL (9-16); Calcium 8.8 mg/dL (8.4-10.2); Carbon Dioxide 30 mmol/L (22-29); Chloride 106 mmol/L (96-108); Estimated Glomerular Filt Rate > 60; Glucose Random 164 mg/dL (60-115); Potassium 4.3 mmol/L (3.3-5.1); Sodium 141 mmol/L (135-145)
[2024-05-27 21:44] LABS: TS Negative Control Passed; TS Panel A 0; TS Panel B 0; TS Positive Control Passed; TSpotTB Negative (Negative)
== END 2024-05-25 10:02 | disposition home or self-care (01) ==
LOC: HO.LAB 10:01
PROVIDERS: PCP Internal Medicine; Visit Provider Internal Medicine
DX: R73.09 Other abnormal glucose (principal); Z20.1 Contact with and (suspected) exposure to tuberculosis
CPT/HCPCS: 36415; 80048; 83036; 86481

== ENCOUNTER 2024-08-05 08:12 | Observation (INO) | payer MEDICARE, SELFPAY ==
--- NOTE | ~2024-08-05 | CT_ITS ---
EXAMINATION: CT ABDOMEN AND PELVIS WITHOUT CONTRAST CLINICAL INFORMATION: Rectal bleeding and pain COMPARISON: 07/16/2021 TECHNIQUE: Multidetector volumetric imaging was performed from the superior aspect of the liver through the pubic symphysis. Sagittal and coronal reformatted images were obtained on the technologist's workstation. This CT examination was performed using dose optimization techniques as appropriate, variously including the following: *Automated exposure control *Adjustment of mA and/or kV according to patient size (this includes techniques or standardized protocols for targeted exams where dose is matched to indication/reason for exam; i.e. extremities or head) *Use of iterative reconstruction technique DLP: 912 mGy-cm FINDINGS: LUNG BASES: The visualized lung bases are unremarkable. LIVER, GALLBLADDER, AND BILIARY TREE: The liver is normal in size, shape, and attenuation. No focal hepatic lesion or biliary ductal dilatation is present. Clips consistent with cholecystectomy. PANCREAS: Unremarkable. SPLEEN: Unremarkable. ADRENAL GLANDS: Unremarkable. KIDNEYS AND URETERS: Enlarging simple appearing renal cortical cysts bilaterally. No complex lesion seen on study grossly. The kidneys are normal in size, shape, and attenuation. No hydronephrosis, hydroureter, or calculi seen. No perinephric collection but there is minor perinephric stranding. BLADDER: There are 2 large bladder stone seen within the neck of the bladder measuring up to 2.3 cm. GASTROINTESTINAL TRACT: Extensive postsurgical changes noted in the upper abdomen. Partial gastrectomy changes appear similar. Presumably large duodenal diverticulum. No acute inflammatory changes. Diverticulosis throughout the colon. No obstruction. ABDOMINAL WALL: Postsurgical changes with generalized eventration of the anterior abdominal wall without a focal hernia defect. LYMPH NODES: Normal. 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 No new findings. PELVIC VISCERA: Likely prostatectomy changes. Correlate with surgical history. OSSEOUS STRUCTURES: Unremarkable. CT/CT abdomen pelvis wo IV con IMPRESSION: 1. 2 large bladder stones within the neck of the bladder. 2. Extensive postsurgical changes as above. 3. Stable saccular aneurysm infrarenal level. 4. Diverticulosis without acute inflammatory changes. No specific findings explain patient's clinical symptoms. Recommend GI assessment especially if symptoms persist. Fleischner guidelines were followed. Electronically signed by: Michael Hylton MD 08/05/2024 12:02 PM EDT RP
[2024-08-05 08:33] VITALS: BP 137/72; PULSE 78; RESP 20; TEMP 37; O2SAT 94; BMI 37.1
[2024-08-05 08:54] LABS: MANUAL DIFF FLAG NO
[2024-08-05 08:55] LABS: Basophils Percent Auto 0.6 % (0-2); Eosinophils Absolute Auto 0.2 X10*3/uL (0.0-0.4); Eosinophils Percent Auto 3.3 % (0-4); Hematocrit 43.3 % (42.0-52.0); Hemoglobin 13.7 g/dl (14.0-18.0); Imm Gran Abs Auto 0.03 X10*3/uL (0.00-0.03); Imm Gran Pct Auto 0.4 % (0.0-0.4); Lymphocytes Absolute Auto 1.6 X10*3/uL (1.2-4.9); Lymphocytes Percent Auto 22.5 % (20-40); Mean Corpuscular HGB Conc 31.6 g/dl (31.0-36.0); Mean Corpuscular Hemoglobin 27.8 pg (27.0-33.0); Mean Platelet Volume 10.1 fL (9.4-12.4); Monocytes Absolute Auto 0.6 X10*3/uL (0.1-1.2); Monocytes Percent Auto 8.7 % (2-11); Neutrophils Absolute Auto 4.7 x10*3/uL (2.0-8.3); Neutrophils Percent Auto 64.5 % (45-73); Platelet Count 175 X10*3/uL (160-400); Red Blood Count 4.92 X10*6/uL (4.60-5.80); Red Cell Distribution Width 14.6 % (11.0-16.0); White Blood Count 7.2 X10*3/uL (4.8-10.8)
[2024-08-05 09:09] VITALS: BP 130/72; PULSE 77; RESP 18; TEMP 36.8; O2SAT 93
[2024-08-05 09:10] LABS: Alanine Aminotransferase 15 U/L (0-40); Albumin Level 3.6 g/dL (3.5-5.0); Alkaline Phosphatase 119 U/L (39-117); Anion Gap 11 (12-20); Aspartate Amino Transferase 19 U/L (5-37); Bilirubin Total 0.5 mg/dL (0.0-1.0); Blood Urea Nitrogen 20 mg/dL (9-16); Calcium 8.6 mg/dL (8.4-10.2); Carbon Dioxide 30 mmol/L (22-29); Chloride 107 mmol/L (96-108); Creatinine Clr Calc Pharmacy 78.7; Estimated Glomerular Filt Rate > 60; Glucose Random 132 mg/dL (60-115); Potassium 4.5 mmol/L (3.3-5.1); Sodium 143 mmol/L (135-145); Total Protein 6.3 g/dL (6.5-8.0)
--- NOTE | 2024-08-05 09:12 | PC.NURSE ---
Pt comes from home for bright red bleeding starting . Pt states hx of hemorrhoids 30 years ago. Pt states he did not look to see if there was blood in the toilet bowl, has noticed it was on the toilet paper, no pain. A/ox4, respirations even and unlabored, no increased wob/sob noted, lungs cta bilaterally, s1 and s2 heard, abdomen soft, non-tender on palpation, pt states no c/o pain at this time. Denies cp/sob/dizziness/n/v. Call stephens within reach, vital signs updated, all needs met, pt updated on plan of care.
--- NOTE | 2024-08-05 09:40 | ED.GIBLEED ---
HPI - GI Bleed General Chief complaint: GI Bleed Stated complaint: rectal bleeding Time Seen by Provider: 08/05/24 09:19 Source: patient and family Mode of arrival: ambulatory Limitations: no limitations History of Present Illness ED Provider: DR. Abdullahi HPI Narrative: 79-year-old male came in for evaluation of rectal bleed for 3-4 days ago patient describes it as bright red blood per rectum every time he as a bowel movement he noticed bright red blood in the toilet that is progressively worsening over the past few days, patient also been complaining of lower abdominal pain 11/24 with no radiation, no fever, no chills, no nausea, no vomiting otherwise. History of peptic ulcer disease secondary to alcoholism that require stomach surgery when he was in his 20s at [facility] in [place]. Patient declined using any anticoagulation. Related Data Home Medications ?Medication ?Instructions ?Recorded ?Confirmed allopurinol 100 mg tablet 100 mg PO DAILY 09/16/20 03/23/24 amlodipine 5 mg tablet 5 mg PO DAILY 02/20/22 03/23/24 aspirin 81 mg tablet,delayed 81 mg PO DAILY 03/20/22 03/23/24 release lorazepam 0.5 mg tablet 1 tab PO BEDTIME PRN Insomnia 03/20/22 03/23/24 gabapentin 300 mg capsule 300 mg PO QID PRN Pain 07/13/22 03/23/24 (Neurontin) metformin 500 mg tablet 250 mg PO BIDWM 09/17/22 03/23/24 cyanocobalamin (vitamin B-12) 1,000 mcg PO DAILY 07/25/23 03/23/24 1,000 mcg tablet valsartan 40 mg tablet 40 mg PO DAILY 09/01/23 03/23/24 ketoconazole 2 % shampoo topical 03/23/24 03/23/24 Previous Rx's ?Medication ?Instructions ?Recorded blood sugar diagnostic (FreeStyle #100 ea 03/24/22 Lite Strips) blood-glucose meter (FreeStyle #1 ea 03/24/22 Lite Meter kit) lancets 28 gauge (FreeStyle #100 ea 03/24/22 Lancets) nitroglycerin 0.4 mg sublingual 0.4 mg sublingual Q5M PRN Chest 07/12/23 tablet Pain #25 tabs metoprolol succinate 50 mg 50 mg PO DAILY #90 tabs 10/30/23 tablet,extended release 24 hr fluticasone 232 mcg-salmeterol 14 1 inh inhalation BID #1 insert 11/03/23 mcg/actuation breath activated powdr fluticasone propionate 50 2 spray intranasal DAILY 30 days 03/29/24 mcg/actuation nasal #15.8 mL spray,suspension atorvastatin 40 mg tablet 40 mg PO BEDTIME 90 days #90 tabs 06/19/24 Allergies Allergy/AdvReac Type Severity Reaction Status Date / Time No Known Allergies Allergy Verified 08/05/24 08:41 Review of Systems Review of Systems: All other systems are reviewed and are negative Constitutional: Reports as per HPI and Reports no additional constitutional complaints Eyes: Reports as per HPI and Reports no additional eye complaints Reports system reviewed and no additional complaints, except as documented Cardiovascular: Reports as per HPI and Reports no additional cardiovascular complaints Respiratory: Reports as per HPI and Reports no additional respiratory complaints Gastrointestinal: Reports as per HPI and Reports no additional gastrointestinal complaints Genitourinary: Reports no additional female genitourinary complaints Musculoskeletal: Reports no additional musculoskeletal complaints Skin/Breast: Reports system reviewed and no additional complaints, except as docu Psychiatric: Reports no additional psychiatric complaints Endocrine: Reports no additional endocrine complaints Hematologic/Lymphatic: Reports no additional hematologic/lymphatic complaints Allergic/Immunologic: Reports no additional allergic/immunologic complaints Reports system reviewed and no additional complaints, except as documented and Reports Abnormal speech present [facility] Past Medical History Medical History Hoarseness Pulmonary nodules COPD (chronic obstructive pulmonary disease) Tracheobronchomalacia Pulmonary nodule COPD (chronic obstructive pulmonary disease) Migrated colon stent Diabetes Hospital-acquired pneumonia Pneumonia Nephrolithiasis Prostate cancer Obesity MAYA (obstructive sleep apnea) Right bundle branch block (RBBB) on electrocardiogram (ECG) Hyperlipidemia HTN (hypertension) Chronic stable angina CAD (coronary artery disease) Surgical History Hx of arthroscopy of knee Hx of lithotripsy Stented coronary artery Hx of cardiac cath Hx laparoscopic cholecystectomy History of basal cell carcinoma (BCC) excision History of carpal tunnel release Hx of hernia repair History of eye surgery Hx of spinal surgery Family History Family History Father CVD (cardiovascular disease) Mother CVD (cardiovascular disease) Brother CVD (cardiovascular disease) Social History Social History Household Members: Spouse Housing: House Do you presently have visiting nurse or other home services: No Alcohol intake: never Patient Tobacco Use Status: Former Tobacco user Tobacco use type: Cigarette Cigarette Packs Per Day: 1 Years Smoked: 30+ Smoked in Last 30 Days: No Use of substances other than those prescribed or required for medical reasons: No Advance Directives: No Advance Directives Information Provided: No Advance Directives Date on File: 07/17/21 service: No Current occupational status: retired Physical Exam Vital Signs: Vital Signs: Last Vital Signs Temp 98.2 F 08/05/24 09:09 Pulse 77 08/05/24 09:09 Resp 18 08/05/24 09:09 BP 130/72 08/05/24 09:09 Pulse Ox 93 08/05/24 09:09 O2 Del Method Room Air 08/05/24 09:09 BMI result Body Mass Index 37.1 Vital signs have been reviewed and appear to be correct. Blood pressure elevated. Heart rate normal. Respiratory rate normal. Temperature normal. Oxygen saturation normal. Appearance: Alert. Oriented X3. No acute distress. Head: Normal external exam. Normocephalic. Atraumatic. No Briceño signs noted. No raccoon eyes noted Eyes: PERRLA. EOMI. Conjunctiva and sclera normal. Eyelids normal. ENT: TM's Normal. Pharynx normal. Uvula midline. Moist mucous membranes. No trismus noted. No drooling noted. No muffled voice noted. Neck: Normal inspection. Neck supple. FROM. No adenopathy. Thyroid Normal. No meningeal signs. No neck mass noted. CVS: Normal heart rate and rhythm. Heart sound normal. No murmurs noted. Pulses normal throughout. Respiratory: No respiratory distress. Painless inspiration. Breath sounds normal. No wheezes/rales/rhonchi noted. Chest nontender. No accessory muscle usage noted or decreased air movement noted. Abdomen: Soft and nontender. Bowel sounds normal in all 4 quadrants. No distention noted. No organomegaly noted. No visible injury noted. Rectal exam: No internal or external hemorrhoids, bright red blood per rectum. Back: No CVA tenderness. Full range of motion noted. Skin: Skin warm and dry. Normal skin color. Normal skin turgor. No rashes/lesions/lacerations noted. Extremities: No lower extremity edema. Extremities exhibit normal range of motion. Extremities nontender. Neuro: Oriented X 3. Cranial nerve exam: II-XII are grossly intact No motor deficit. No sensory deficit. Reflexes normal. Course Reevaluation(s) Reevaluation #1: 79-year-old male with bright red blood per rectum, hemodynamically stable, non any anticoagulation will admit for serial CBCs and further GI evaluation. Time: 12:19 Medical Decision Making Differential Diagnosis Differential Diagnoses: The differential diagnosis associated with the presentation includes ( Severe anemia, electrolyte derangement, melena, hematochezia, bright red blood rectum, colitis, diverticulosis.) Admission/Observation Consideration of admission/observation: Escalation of care including admission/observation considered Consult Healthcare Provider Management of the patient was discussed with: Hospitalist ( Dr. Wilder) Lab Data MDM Lab Attestation statement: I reviewed the patient's lab results. 08/05/24 08:50 08/05/24 08:50 Labs: Lab Results 08/05/24 08/05/24 Range/Units 08:50 09:36 WBC 7.2 (4.8-10.8) X10*3/uL RBC 4.92 (4.60-5.80) X10*6/uL Hgb 13.7 L (14.0-18.0) g/dl Hct 43.3 (42.0-52.0) % MCV 88.0 (80.0-98.0) fL MCH 27.8 (27.0-33.0) pg MCHC 31.6 (31.0-36.0) g/dl RDW 14.6 (11.0-16.0) % Plt Count 175 (160-400) X10*3/uL MPV 10.1 (9.4-12.4) fL Immature Gran % (Auto) 0.4 (0.0-0.4) % Neut % (Auto) 64.5 (45-73) % Lymph % (Auto) 22.5 (20-40) % [place] % (Auto) 8.7 (2-11) % Eos % (Auto) 3.3 (0-4) % Baso % (Auto) 0.6 (0-2) % Lymph # (Auto) 1.6 (1.2-4.9) X10*3/uL [place] # (Auto) 0.6 (0.1-1.2) X10*3/uL Eos # (Auto) 0.2 (0.0-0.4) X10*3/uL Baso # (Auto) 0.0 (0.0-0.2) X10*3/uL Abs Immat Gran (auto) 0.03 (0.00-0.03) X10*3/uL Absolute Neuts (auto) 4.7 (2.0-8.3) x10*3/uL Absolute Nucleated RBC 0.000 (0.0-0.012) X10*3/uL Nucleated RBC % (auto) 0.0 (0.0-0.2) /100WBC Sodium 143 (135-145) mmol/L Potassium 4.5 (3.3-5.1) mmol/L Chloride 107 (96-108) mmol/L Carbon Dioxide 30 H (22-29) mmol/L Anion Gap 11 L (12-20) BUN 20 H (9-16) mg/dL Creatinine 0.96 (0.5-1.4) mg/dL Estim Creat Clear Calc 78.7 Estimated GFR > 60 Random Glucose 132 H (60-115) mg/dL Calcium 8.6 (8.4-10.2) mg/dL Total Bilirubin 0.5 (0.0-1.0) mg/dL AST 19 (5-37) U/L ALT 15 (0-40) U/L Alkaline Phosphatase 119 H (39-117) U/L Total Protein 6.3 L (6.5-8.0) g/dL Albumin 3.6 (3.5-5.0) g/dL Stool Occult Blood POSITIVE (NEGATIVE) Independent Interpretation I performed an independent interpretation of an: CT Scan ( abdomen pelvis:1. 2 large bladder stones within the neck of the bladder. 2. Extensive postsurgical changes as above. 3. Stable saccular aneurysm infrarenal level. 4. Diverticulosis without acute inflammatory changes. No specific findings explain patient's clinical symptoms. Recommend GI assess) Radiology Impression Discussion of test interpretation with radiology: I have reviewed the radiologist's reading. Discharge Plan Discharge Clinical Impression: Bright red rectal bleeding Patient Disposition: Admitted As Inpatient Prescriptions: No Action nitroglycerin 0.4 mg tablet, sublingual 0.4 mg SUBLINGUAL Q5M PRN (Reason: Chest Pain) Qty: 25 2RF metoprolol succinate 50 mg tablet extended release 24 hr 50 mg PO DAILY Qty: 90 3RF fluticasone propion-salmeterol 232-14 mcg/actuation aerosol powdr breath activated 1 inh inhalation BID Qty: 1 3RF atorvastatin 40 mg tablet 40 mg PO BEDTIME 90 Days Qty: 90 3RF lorazepam 0.5 mg tablet 1 tab PO BEDTIME PRN (Reason: Insomnia) aspirin 81 mg Tablet,Delayed Release (Dr/Ec) 81 mg PO DAILY (DME) FreeStyle Lite Strips Strip Qty: 100 0RF Rx Instructions: Test four times a day or as directed. (DME) blood-glucose meter [FreeStyle Lite Meter] Kit Qty: 1 0RF Rx Instructions: As Directed (DME) lancets [FreeStyle Lancets] 28 gauge Misc Qty: 100 0RF Rx Instructions: Test four times a day or as directed. amlodipine 5 mg tablet 5 mg PO DAILY gabapentin [Neurontin] 300 mg capsule 300 mg PO QID PRN (Reason: Pain) metformin 500 mg tablet 250 mg PO BIDWM cyanocobalamin (vitamin B-12) 1,000 mcg Tablet 1,000 mcg PO DAILY allopurinol 100 mg tablet 100 mg PO DAILY ketoconazole 2 % shampoo topical valsartan 40 mg tablet 40 mg PO DAILY fluticasone propionate 50 mcg/actuation spray,suspension 2 spray intranasal DAILY 30 Days Qty: 15.8 11RF Print Language: Maori
[2024-08-05 09:51] LABS: OBS Int Ctl Valid YES; OBS1 POSITIVE (NEGATIVE)
--- NOTE | 2024-08-05 13:09 | P.HPHOSP_ITS ---
History of Present Illness Date of Service: 08/05/24 Chief Complaint: BRBPR An 79 years old male with PMH of CAD, HTN, HLD , Gout, DMII presents to the hospital with 2 episodes of BRBPR since yesterday. The patient reports noticing blood while whiping but no bloody bowel motions reported or abdominal pain. No melena. No chest pain, palpitations, SOB, nausea, vomiting, diarrhea or urinary symptoms. The patient can not recall exactly his last colonoscopy but it was recent years with reported polyp but no masses. His Hb stable around 13. on OR exam there was large amount of red blood. Will admit for observation. Review of Systems 2 Review of Systems: No fever, chills or weakness No chest pain, palpitation No shortness of breath or coughing No abdominal pain, nausea or vomiting No urinary symptoms No any rash or wounds PMFSH Medical History Hoarseness Pulmonary nodules COPD (chronic obstructive pulmonary disease) Tracheobronchomalacia Pulmonary nodule COPD (chronic obstructive pulmonary disease) Migrated colon stent Diabetes Hospital-acquired pneumonia Pneumonia Nephrolithiasis Prostate cancer Obesity MAYA (obstructive sleep apnea) Right bundle branch block (RBBB) on electrocardiogram (ECG) Hyperlipidemia HTN (hypertension) Chronic stable angina CAD (coronary artery disease) Family History Father CVD (cardiovascular disease) Mother CVD (cardiovascular disease) Brother CVD (cardiovascular disease) Surgical History Hx of arthroscopy of knee Hx of lithotripsy Stented coronary artery Hx of cardiac cath Hx laparoscopic cholecystectomy History of basal cell carcinoma (BCC) excision History of carpal tunnel release Hx of hernia repair History of eye surgery Hx of spinal surgery Social History Household Members: Spouse Housing: House Do you presently have visiting nurse or other home services: No Alcohol intake: never Patient Tobacco Use Status: Former Tobacco user Tobacco use type: Cigarette Cigarette Packs Per Day: 1 Years Smoked: 30+ Smoked in Last 30 Days: No Use of substances other than those prescribed or required for medical reasons: No Advance Directives: No Advance Directives Information Provided: No Advance Directives Date on File: 07/17/21 Nutrition Risks: No Nutritional Risk service: No Current occupational status: retired Meds Allergies Allergy/AdvReac Type Severity Reaction Status Date / Time No Known Allergies Allergy Verified 08/05/24 08:41 Active Medications: Current Medications Acetaminophen (Acetaminophen 325 Mg Tablet) 650 mg PO Q6H PRN PRN Reason: Pain, Mild (Pain Scale 1-3), fever or headache Calcium Carbonate (Calcium Carbonate 750 Mg Tab.Chew) 750 mg PO Q4H PRN PRN Reason: Heartburn Magnesium Hydroxide (Milk Of Magnesia 30 Ml Oral.Susp) 30 ml PO DAILY PRN PRN Reason: Constipation Melatonin (Melatonin 3 Mg Tablet) 6 mg PO BEDTIME PRN PRN Reason: Insomnia Ondansetron HCl (Ondansetron Hcl 4 Mg/2 Ml Vial) 4 mg IVPUSH Q8H PRN PRN Reason: Nausea and Vomiting Sodium Chloride (0.9 % Sodium Chloride Flush 3 Ml Syringe) 3 ml IVFLUSH [facility] Medications ?Medication ?Instructions ?Recorded ?Confirmed ?Last Taken ?Type allopurinol 100 mg tablet 100 mg PO DAILY 09/16/20 03/23/24 1 Day Ago History ~07/24/23 amlodipine 5 mg tablet 5 mg PO DAILY 02/20/22 03/23/24 1 Day Ago History ~07/24/23 aspirin 81 mg tablet,delayed 81 mg PO DAILY 03/20/22 03/23/24 1 Day Ago History release ~07/24/23 gabapentin 300 mg capsule 200 mg PO BEDTIME Pain 07/13/22 03/23/24 07/13/22 History (Neurontin) metformin 500 mg tablet 250 mg PO BIDWM 09/17/22 03/23/24 1 Day Ago History ~07/24/23 cyanocobalamin (vitamin B-12) 1,000 mcg PO DAILY 07/25/23 03/23/24 1 Day Ago History 1,000 mcg tablet ~07/24/23 valsartan 40 mg tablet 40 mg PO DAILY 09/01/23 03/23/24 Unknown History ketoconazole 2 % shampoo topical 03/23/24 03/23/24 Unknown History gabapentin 100 mg capsule 100 mg PO QID 08/05/24 Unknown History lorazepam 1 mg tablet 1 mg PO BEDTIME PRN Anxiety 08/05/24 Unknown History Physical Exam 2 Vital Signs and Narrative: Vital Signs: Last Vital Signs Temp 98.2 F 08/05/24 09:09 Pulse 77 08/05/24 09:09 Resp 18 08/05/24 09:09 BP 130/72 08/05/24 09:09 Pulse Ox 93 08/05/24 09:09 O2 Del Method Room Air 08/05/24 09:09 BMI result Body Mass Index 37.1 Const: Other: Constitutional : Awake, interactive, not in distress Neck : Normal inspection, Supple Cardiovascular : RRR, no JVP, no lower extremity edema Respiratory : good bilateral air entry, no crackles, wheezes or rhonchi Gastrointestinal: soft, lax, Normal bowel sounds, Non tender Skin : Warm, Dry Neurological : Alert & oriented x3, No focal deficit Results Labs 08/05/24 08:50 08/05/24 08:50 Labs: Laboratory Results - last 24 hr 08/05/24 08/05/24 08:50 09:36 MCV 88.0 MCH 27.8 MCHC 31.6 RDW 14.6 Plt Count 175 MPV 10.1 Immature Gran % (Auto) 0.4 Neut % (Auto) 64.5 Lymph % (Auto) 22.5 [place] % (Auto) 8.7 Eos % (Auto) 3.3 Baso % (Auto) 0.6 Lymph # (Auto) 1.6 [place] # (Auto) 0.6 Eos # (Auto) 0.2 Baso # (Auto) 0.0 Abs Immat Gran (auto) 0.03 Absolute Neuts (auto) 4.7 Absolute Nucleated RBC 0.000 Nucleated RBC % (auto) 0.0 Anion Gap 11 L Estim Creat Clear Calc 78.7 Estimated GFR > 60 Random Glucose 132 H Calcium 8.6 Total Bilirubin 0.5 AST 19 ALT 15 Alkaline Phosphatase 119 H Total Protein 6.3 L Albumin 3.6 Stool Occult Blood POSITIVE Imaging Radiologist's Impressions: Impressions Abdomen/Pelvis CT 08/05/24 09:37 IMPRESSION: 1. 2 large bladder stones within the neck of the bladder. 2. Extensive postsurgical changes as above. 3. Stable saccular aneurysm infrarenal level. 4. Diverticulosis without acute inflammatory changes. No specific findings explain patient's clinical symptoms. Recommend GI assessment especially if symptoms persist. Fleischner guidelines were followed. Electronically signed by: Michael Hylton MD 08/05/2024 12:02 PM EDT RP Assessment and Plan (1) Bright red rectal bleeding: Status: Acute Plan An 79 years old male with PMH of CAD, HTN, HLD , Gout, DMII presents to the hospital with 2 episodes of BRBPR since yesterday. Acute BRBPR Likely lower GI bleed, internal hemorroids ? rectal mass ? CT scan showing diverticulosis but no masses monitor overnight Tagged RBCs if rebleeds significantly GI consult CAD continue atorvastatin, metoprolol Hold Aspirin HTN continue metoprolol; Valsartan + amlodipine DM2 SSI, Diabetic diet, hold MTF VTE ppx SCDs Quality Stroke Does the patient have a stroke diagnosis?: No VTE Prior VTE?: No VTE Risk Level:: Medical - moderate - high VTE Device Contraindication: N/A - Device Ordered VTE Drug Contraindication: Treatment Not Indicated
[2024-08-05 13:50] VITALS: BP 120/60; PULSE 76; RESP 18; TEMP 36.8; O2SAT 94
[2024-08-05 15:31] VITALS: BP 124/65; PULSE 67; RESP 14; TEMP 36.5; O2SAT 92
--- NOTE | 2024-08-05 15:37 | PHA.MEDREC ---
Addendum entered by Jorge A Travis RPh 08/05/24 15:57: CHECKED BY [facility] Original Note: Pharmacy Consult ? Medication Reconciliation Pharmacy has completed the medication reconciliation.
[2024-08-05 16:00] VITALS: BP 124/65; PULSE 67; RESP 14; TEMP 36.5; O2SAT 92
--- NOTE | 2024-08-05 16:09 | MHC.CM.PN ---
LINARES DELIVERED. PATIENT LIVES IN A HOME W/ . FUNCTIONALLY INDEPENDENT. HAS A NEBULIZER. PCP CARINE TODD MD HCP ON FILE AND VERIFIED. [facility] IS [facility]. DP: GOAL IS HOME SELF CARE. TO TRANSPORT. CM WILL CONTINUE TO FOLLOW.
[2024-08-05 16:27] LABS: Glucose, Whole Blood 169 mg/dL (60-115)
[2024-08-05] MEDS: Insulin Lispro 100 UNIT/ML 3 ML VIAL SUBCUT (17:08)
[2024-08-05] MEDS: Flu Vacc TS2024-25(6mos up)/PF 0.5 ML SYRINGE IM (17:08)
[2024-08-05] MEDS: 0.9 % Sodium Chloride Flush 3 ML SYRINGE IVFLUSH ×2 (17:10→21:01)
[2024-08-05] MEDS: Gabapentin 100 MG CAPSULE PO (17:10)
[2024-08-05 19:04] VITALS: BP 160/74; PULSE 73; RESP 16; TEMP 36.1; O2SAT 93
--- NOTE | 2024-08-05 20:24 | P.EN_ITS ---
Event Note Date of Service: 08/05/24 Event Note: GI Consult-Full note dictated-History from patient, RN, and EMR Imp: 79 yo male with reported rectal bleeding with BRB on toilet paper for three days noted after a BM, but no reported blood in toilet bowl or melena. He has had no bleeding by itself. His last colonoscopy was > 5 years ago in [place]. He had an EGD with me in 2019 that was negative. He denies any other GI sx and has had no bleeding since admission. He takes one 81mg aspirin daily. His initial Hgb is 13.7 Diff dx: Hemorrhoidal bleeding, colon polyp, or colon lesion. Doesn't sound like a diverticular bleed. Rec: Colonoscopy on Wednesday, 08/07. Full consent obtained, including risks of bleeding and perforation. I will place the orders for that. Follow Hgb. If he develops active lower GI bleeding I would recommend a CTA of the abdomen with bleeding protocol. Call me if problems develop before Wednesday. D/W patient in detail and he is comfortable with this plan. Thanks Time Spent With Patient Time: Total time managing care of this patient today ____ minutes.
[2024-08-05 20:42] LABS: Glucose, Whole Blood 127 mg/dL (60-115)
[2024-08-05] MEDS: Gabapentin 100 MG CAPSULE 200 MG PO (21:00)
[2024-08-05] MEDS: Atorvastatin Calcium 40 MG TABLET PO (21:00)
--- NOTE | 2024-08-05 22:02 | CONS_ITS ---
DATE OF SERVICE: 08/05/2024 REASON FOR CONSULTATION: Rectal bleeding. HISTORY OF PRESENT ILLNESS: The patient is an 79-year-old male, who describes that he was in his usual state of health up until about 3 days ago when he noticed the onset of some rectal bleeding with blood on the toilet paper. Over the past 3 days the blood became bright red. However, he thinks the bowel movements appeared normal without any definitive melena, nor any definitive blood in the toilet bowl. He did not have any bleeding by itself otherwise. Again, the only time he noticed bleeding was on the toilet paper after a bowel movement. He denies any rectal pain, constipation, nor straining. He has had previous colonoscopies, although none for at least 5 years with his last one being done in [place]. He denies any abdominal pain. He has not had any dizziness, nausea, nor vomiting. He did have an upper endoscopy with me about 3 or 4 years ago that was negative. That was done for some melena that he was having at that time after being initiated on some blood thinners after placement of coronary artery stents. He has had a previous ulcer disease and is status post a previous Billroth II surgery. Since admission here he has had no signs of bleeding. His hemoglobin on admission was 13.7 with a normal MCV. At home, he is only on aspirin, but no other blood thinners and he denies any NSAIDs. He does not smoke nor use any significant amounts of alcohol. MEDICATIONS: At home, allopurinol, amlodipine, aspirin 81 mg atorvastatin, fluticasone nasal spray, Advair, gabapentin, lorazepam, metformin, metoprolol, valsartan. Medications here in the hospital include acetaminophen, allopurinol, amlodipine, atorvastatin, fluticasone nasal spray, gabapentin, sliding scale insulin, melatonin, metoprolol, Zofran, valsartan. PAST MEDICAL HISTORY: Peptic ulcer disease with previous Billroth II operation, cholecystectomy, prostatectomy, and placement of 2 urinary bladder implants to treat incontinence after his prostate surgery. His medical problems include diabetes, COPD, hyperlipidemia, hypertension, pulmonary nodules, kidney stone, prostate cancer, sleep apnea and coronary artery disease with previous stent placements. SOCIAL HISTORY: He is . He currently does not smoke nor use any significant amounts of alcohol. FAMILY HISTORY: Noncontributory. REVIEW OF SYSTEMS: CONSTITUTIONAL: He has otherwise been feeling well with good energy good appetite. SKIN: No rash. No pruritus. CARDIAC: No chest pain. PULMONARY: No coughing or hemoptysis. GI: As above. URINARY: No dysuria. No hematuria. NEUROLOGIC: No headache or seizures. PHYSICAL EXAMINATION: GENERAL: The patient is a pleasant alert comfortable appearing male. SKIN: Warm and dry. HEENT: Anicteric sclerae. Moist mucous membranes. NECK: Supple. CHEST: Clear. CARDIAC: Normal S1, S2. ABDOMEN: Soft, nondistended, nontender. LABORATORY DATA: Hemoglobin 13.7 with MCV 88, platelets 175,000. Stool was heme positive. Normal electrolytes. BUN 20, creatinine 0.96. Normal LFTs. CT of the abdomen and pelvis today was negative for any sign of acute GI bleeding. There was some diverticulosis noted. IMPRESSION: Given the patient's clinical history, I do not think this represents a diverticular bleed at this time given his description of the bleeding as strictly being with some bright red blood on the toilet paper after an otherwise normal-appearing bowel movement. This may represent simply some internal hemorrhoids, but other possibilities such as a colorectal polyp or neoplasm should be excluded. As such, he will undergo colonoscopy. Full consent has been obtained from him for this, including risks of bleeding and perforation. His aspirin should continue to be held for the time being. His hemoglobin should be monitored. If he develops signs of any active lower GI bleeding, I would then repeat a CT of the abdomen with bleeding protocol study. The patient was comfortable with this plan. Thank you for the consultation. MD JESU Niño/DAMIÁN / [id number]
[2024-08-06 03:24] VITALS: BP 97/51; PULSE 65; RESP 18; TEMP 36.7; O2SAT 94
[2024-08-06 06:04] LABS: Hematocrit 42.4 % (42.0-52.0); Hemoglobin 12.9 g/dl (14.0-18.0); Mean Corpuscular HGB Conc 30.4 g/dl (31.0-36.0); Mean Corpuscular Hemoglobin 27.3 pg (27.0-33.0); Mean Corpuscular Volume 89.8 fL (80.0-98.0); Mean Platelet Volume 10.6 fL (9.4-12.4); Platelet Count 165 X10*3/uL (160-400); Red Blood Count 4.72 X10*6/uL (4.60-5.80); Red Cell Distribution Width 14.7 % (11.0-16.0); White Blood Count 6.8 X10*3/uL (4.8-10.8)
[2024-08-06] MEDS: Gabapentin 100 MG CAPSULE PO ×4 (06:22→16:47)
[2024-08-06 06:26] LABS: Anion Gap 14 (12-20); Blood Urea Nitrogen 21 mg/dL (9-16); Calcium 8.8 mg/dL (8.4-10.2); Carbon Dioxide 26 mmol/L (22-29); Chloride 106 mmol/L (96-108); Creatinine Clr Calc Pharmacy 79.5; Estimated Glomerular Filt Rate > 60; Glucose Random 144 mg/dL (60-115); Potassium 4.8 mmol/L (3.3-5.1); Sodium 141 mmol/L (135-145)
[2024-08-06 07:23] VITALS: BP 106/56; PULSE 75; RESP 18; TEMP 36; O2SAT 92
[2024-08-06 07:24] LABS: Glucose, Whole Blood 144 mg/dL (60-115)
[2024-08-06] MEDS: Cyanocobalamin (Vitamin B-12) 1,000 MCG TABLET 1000 MCG PO (08:10)
[2024-08-06] MEDS: 0.9 % Sodium Chloride Flush 3 ML SYRINGE IVFLUSH ×3 (08:10→20:52)
[2024-08-06] MEDS: allopurinoL 100 MG TABLET PO (08:10)
--- NOTE | 2024-08-06 09:29 | HO.PM.IMPN ---
Subjective Subjective Date of Service: 08/06/24 Interval History: Seen and evaluated feels well, no more bleeding episodes GI wants to do Colonoscopy tomorrow Review of Systems No fever, chills or weakness No chest pain, palpitation No shortness of breath or coughing No abdominal pain, nausea or vomiting No urinary symptoms No any rash or wounds Physical Exam Vital Signs: Vital Signs: Last Vital Signs Temp 96.8 F 08/06/24 07:23 Pulse 75 08/06/24 07:23 Resp 18 08/06/24 07:23 BP 106/56 L 08/06/24 07:23 Pulse Ox 92 08/06/24 07:23 O2 Del Method Room Air 08/06/24 07:23 BMI result Body Mass Index 37.1 Const: Other: Constitutional : Awake, interactive, not in distress Neck : Normal inspection, Supple Cardiovascular : RRR, no JVP, no lower extremity edema Respiratory : good bilateral air entry, no crackles, wheezes or rhonchi Gastrointestinal: soft, lax, Normal bowel sounds, Non tender Skin : Warm, Dry Neurological : Alert & oriented x3, No focal deficit Objective Data Active Medications Acetaminophen (Acetaminophen 325 Mg Tablet) 650 mg PO Q6H PRN PRN Reason: Pain, Mild (Pain Scale 1-3), fever or headache Allopurinol (Allopurinol 100 Mg Tablet) 100 mg PO DAILY [facility] Last Admin: 08/06/24 08:10 Dose: 100 mg Documented By: SKIP Amlodipine Besylate (Amlodipine Besylate 5 Mg Tablet) 5 mg PO DAILY [facility]; Protocol Last Admin: 08/06/24 08:11 Dose: Not Given Documented By: SKIP Non-Admin Reason: hold per Aspirin (Aspirin Enteric Coated 81 Mg Tablet.) 81 mg PO DAILY [facility] Atorvastatin Calcium (Atorvastatin Calcium 40 Mg Tablet) 40 mg PO BEDTIME [facility] Last Admin: 08/05/24 21:00 Dose: 40 mg Documented By: KARTHIKEYAN Bisacodyl (Bisacodyl 5 Mg Tablet.) 10 mg PO ONCE ONE Stop: 08/06/24 15:01 Calcium Carbonate (Calcium Carbonate 750 Mg Tab.Chew) 750 mg PO Q4H PRN PRN Reason: Heartburn Cyanocobalamin (Cyanocobalamin (Vitamin B-12) 1,000 Mcg Tablet) 1,000 mcg PO DAILY [facility] Last Admin: 08/06/24 08:10 Dose: 1,000 mcg Documented By: SKIP Fluticasone Propionate (Fluticasone Propionate Nasal 16 Gm [place]) 2 spray NOSTRIL-B DAILY [facility] Last Admin: 08/06/24 08:11 Dose: Not Given Documented By: SKIP Non-Admin Reason: Med Not Available Fluticasone/Vilanterol (Fluticasone/Vilanterol 100/25 Blst.W.Dev) 1 puff INHALE RDAILY [facility] Last Admin: 08/06/24 07:56 Dose: Not Given Documented By: SAMY Non-Admin Reason: mdi unavail pharmacy called Gabapentin (Gabapentin 100 Mg Capsule) 100 mg PO QID@0500,0900,1400,1700 [facility] Last Admin: 08/06/24 08:13 Dose: 100 mg Documented By: SKIP Gabapentin (Gabapentin 100 Mg Capsule) 200 mg PO BEDTIME [facility] Last Admin: 08/05/24 21:00 Dose: 200 mg Documented By: KARTHIKEYAN Glucose (Glucose Gel 15 Gm Gel..Gram.) 15 gm PO Q15M PRN; Protocol PRN Reason: per Hypoglycemia Standing Ord. Dextrose (D10) 250 mls @ 750 mls/hr IV Q15M PRN; Protocol PRN Reason: per Hypoglycemia Standing Ord. Insulin Human Lispro (Insulin Lispro 100 Unit/Ml 3 Ml Vial) 0 unit SUBCUT QIDACHS [facility]; Protocol Last Admin: 08/06/24 08:10 Dose: Not Given Documented By: SKIP Non-Admin Reason: No Insulin Coverage Lorazepam (Lorazepam 1 Mg Tablet) 1 mg PO BEDTIME PRN PRN Reason: Anxiety Magnesium Hydroxide (Milk Of Magnesia 30 Ml Oral.Susp) 30 ml PO DAILY PRN PRN Reason: Constipation Melatonin (Melatonin 3 Mg Tablet) 6 mg PO BEDTIME PRN PRN Reason: Insomnia Metoprolol Succinate (Metoprolol Succinate Er 50 Mg Tab.Er.24h) 50 mg PO DAILY [facility]; Protocol Last Admin: 08/06/24 08:11 Dose: Not Given Documented By: SKIP Non-Admin Reason: hold per MD Nitroglycerin (Nitroglycerin 0.4 Mg Tab.Subl) 0.4 mg SUBLINGUAL Q5M PRN PRN Reason: Chest Pain Ondansetron HCl (Ondansetron Hcl 4 Mg/2 Ml Vial) 4 mg IVPUSH Q8H PRN PRN Reason: Nausea and Vomiting Polyethylene Glycol/Electrolytes (Peg 3350/Na Sulf,Bicarb,Cl/Kcl 4,000 Ml Soln.Recon) 4,000 ml PO ONCE ONE; Protocol Stop: 08/06/24 16:01 Sodium Biphosphate/Sodium Phosphate (Sodium Phosphate,[place]-Dibasic 133 Ml Enema) 133 ml [place] ONCE PRN PRN Reason: Poor Colonoscopy Prep Results Sodium Chloride (0.9 % Sodium Chloride Flush 3 Ml Syringe) 3 ml IVFLUSH QSHIFT [facility] Last Admin: 08/06/24 08:10 Dose: 3 ml Documented By: SKIP Valsartan (Valsartan 40 Mg Tablet) 40 mg PO DAILY [facility]; Protocol Last Admin: 08/06/24 08:53 Dose: Not Given Documented By: SKIP Non-Admin Reason: hold per MD low BP Labs 08/06/24 05:12 08/06/24 05:12 Labs: Laboratory Results - last 24 hr 08/05/24 08/05/24 08/05/24 09:36 16:11 20:33 MCV MCH MCHC RDW Plt Count MPV Absolute Nucleated RBC Nucleated RBC % (auto) Anion Gap Estim Creat Clear Calc Estimated GFR POC Glucose 169 H 127 H Random Glucose Calcium Stool Occult Blood POSITIVE 08/06/24 08/06/24 05:12 07:21 MCV 89.8 MCH 27.3 MCHC 30.4 L RDW 14.7 Plt Count 165 MPV 10.6 Absolute Nucleated RBC 0.000 Nucleated RBC % (auto) 0.0 Anion Gap 14 Estim Creat Clear Calc 79.5 Estimated GFR > 60 POC Glucose 144 H Random Glucose 144 H Calcium 8.8 Stool Occult Blood Assessment and Plan (1) Bright red rectal bleeding: Status: Acute Plan An 79 years old male with PMH of CAD, HTN, HLD , Gout, DMII presents to the hospital with 2 episodes of BRBPR since yesterday. Acute BRBPR Likely lower GI bleed, internal hemorroids ? rectal mass ? Stable H&H CT scan showing diverticulosis but no masses monitor overnight CTA if rebleed GI to do colonoscopy tomorrow, colon prep tonight NPO post midnight CAD continue atorvastatin, metoprolol Hold Aspirin HTN continue metoprolol; Valsartan + amlodipine DM2 SSI, Diabetic diet, hold MTF VTE ppx SCDs Quality Stroke Does the patient have a stroke diagnosis?: No VTE Prior VTE?: No VTE Risk Level:: Medical - moderate - high VTE Device Contraindication: N/A - Device Ordered VTE Drug Contraindication: Treatment Not Indicated
[2024-08-06 10:58] LABS: Glucose, Whole Blood 158 mg/dL (60-115)
[2024-08-06] MEDS: Insulin Lispro 100 UNIT/ML 3 ML VIAL SUBCUT (12:06)
[2024-08-06] MEDS: bisacodyL 5 MG TABLET.DR 10 MG PO (14:27)
[2024-08-06 15:14] VITALS: BP 148/70; PULSE 74; RESP 16; TEMP 36; O2SAT 93
[2024-08-06 16:23] LABS: Glucose, Whole Blood 81 mg/dL (60-115)
[2024-08-06] MEDS: PEG 3350/Na Sulf,Bicarb,Cl/KCL 4,000 ML SOLN.RECON 4000 ML PO (16:43)
[2024-08-06 19:27] VITALS: BP 138/56; PULSE 86; RESP 15; TEMP 36.1; O2SAT 92
[2024-08-06 20:44] LABS: Glucose, Whole Blood 93 mg/dL (60-115)
[2024-08-06] MEDS: Gabapentin 100 MG CAPSULE 200 MG PO (20:52)
[2024-08-06] MEDS: Atorvastatin Calcium 40 MG TABLET PO (20:52)
[2024-08-07] VITALS (7 sets, daily range): BP systolic 103–156; BP diastolic 38–79; PULSE 84–98; RESP 16–20; TEMP 36.2–36.9; O2SAT 92–95; BMI 37.1
[2024-08-07] MEDS: Gabapentin 100 MG CAPSULE PO (05:27)
[2024-08-07 06:19] LABS: MANUAL DIFF FLAG NO
[2024-08-07 06:27] LABS: Basophils Percent Auto 0.4 % (0-2); Eosinophils Absolute Auto 0.2 X10*3/uL (0.0-0.4); Eosinophils Percent Auto 2.2 % (0-4); Hematocrit 44.2 % (42.0-52.0); Hemoglobin 13.7 g/dl (14.0-18.0); Imm Gran Abs Auto 0.03 X10*3/uL (0.00-0.03); Imm Gran Pct Auto 0.4 % (0.0-0.4); Lymphocytes Absolute Auto 1.4 X10*3/uL (1.2-4.9); Lymphocytes Percent Auto 19.5 % (20-40); Mean Corpuscular Hemoglobin 27.6 pg (27.0-33.0); Mean Corpuscular Volume 88.9 fL (80.0-98.0); Mean Platelet Volume 10.8 fL (9.4-12.4); Monocytes Absolute Auto 0.5 X10*3/uL (0.1-1.2); Monocytes Percent Auto 7.4 % (2-11); Neutrophils Absolute Auto 5.1 x10*3/uL (2.0-8.3); Neutrophils Percent Auto 70.1 % (45-73); Platelet Count 169 X10*3/uL (160-400); Red Blood Count 4.97 X10*6/uL (4.60-5.80); Red Cell Distribution Width 14.6 % (11.0-16.0); White Blood Count 7.3 X10*3/uL (4.8-10.8)
[2024-08-07 06:42] LABS: Anion Gap 13 (12-20); Blood Urea Nitrogen 12 mg/dL (9-16); Calcium 8.4 mg/dL (8.4-10.2); Carbon Dioxide 27 mmol/L (22-29); Chloride 107 mmol/L (96-108); Creatinine Clr Calc Pharmacy 93.3; Estimated Glomerular Filt Rate > 60; Glucose Fasting 119 mg/dL (60-99); Potassium 4.2 mmol/L (3.3-5.1); Sodium 143 mmol/L (135-145)
[2024-08-07 07:02] LABS: Glucose, Whole Blood 128 mg/dL (60-115)
--- NOTE | 2024-08-07 09:55 | HO.PM.IMPN ---
Subjective Subjective Date of Service: 08/07/24 Interval History: Seen and evaluated feels well, had bowel prep overnight reports blood with stool and wiping GI wants to do Colonoscopy Review of Systems Review of Systems: Yes all other systems are reviewed and are negative Physical Exam Vital Signs: Vital Signs: Last Vital Signs Temp 98 F 08/07/24 06:43 Pulse 84 08/07/24 06:43 Resp 16 08/07/24 06:43 BP 118/57 L 08/07/24 06:43 Pulse Ox 92 08/07/24 06:43 O2 Del Method Room Air 08/07/24 06:43 BMI result Body Mass Index 37.1 Const: Other: Constitutional : Awake, interactive, not in distress Neck : Normal inspection, Supple Cardiovascular : RRR, no JVP, no lower extremity edema Respiratory : good bilateral air entry, no crackles, wheezes or rhonchi Gastrointestinal: soft, lax, Normal bowel sounds, Non tender Skin : Warm, Dry Neurological : Alert & oriented x3, No focal deficit Objective Data Active Medications Acetaminophen (Acetaminophen 325 Mg Tablet) 650 mg PO Q6H PRN PRN Reason: Pain, Mild (Pain Scale 1-3), fever or headache Allopurinol (Allopurinol 100 Mg Tablet) 100 mg PO DAILY [facility] Last Admin: 08/06/24 08:10 Dose: 100 mg Documented By: SKIP Amlodipine Besylate (Amlodipine Besylate 5 Mg Tablet) 5 mg PO DAILY [facility]; Protocol Last Admin: 08/06/24 08:11 Dose: Not Given Documented By: SKIP Non-Admin Reason: hold per Atorvastatin Calcium (Atorvastatin Calcium 40 Mg Tablet) 40 mg PO BEDTIME [facility] Last Admin: 08/06/24 20:52 Dose: 40 mg Documented By: JOSELUISRISRaz Calcium Carbonate (Calcium Carbonate 750 Mg Tab.Chew) 750 mg PO Q4H PRN PRN Reason: Heartburn Cyanocobalamin (Cyanocobalamin (Vitamin B-12) 1,000 Mcg Tablet) 1,000 mcg PO DAILY [facility] Last Admin: 08/06/24 08:10 Dose: 1,000 mcg Documented By: SKIP Fluticasone Propionate (Fluticasone Propionate Nasal 16 Gm [place]) 2 spray NOSTRIL-B DAILY [facility] Last Admin: 08/06/24 08:11 Dose: Not Given Documented By: SKIP Non-Admin Reason: Med Not Available Fluticasone/Vilanterol (Fluticasone/Vilanterol 100/25 Blst.W.Dev) 1 puff INHALE RDAILY [facility] Last Admin: 08/07/24 08:20 Dose: Not Given Documented By: IRISH Non-Admin Reason: Patient Refused Gabapentin (Gabapentin 100 Mg Capsule) 100 mg PO QID@0500,0900,1400,1700 [facility] Last Admin: 08/07/24 05:27 Dose: 100 mg Documented By: SELWYN Gabapentin (Gabapentin 100 Mg Capsule) 200 mg PO BEDTIME [facility] Last Admin: 08/06/24 20:52 Dose: 200 mg Documented By: SELWYN Glucose (Glucose Gel 15 Gm Gel..Gram.) 15 gm PO Q15M PRN; Protocol PRN Reason: per Hypoglycemia Standing Ord. Dextrose (D10) 250 mls @ 750 mls/hr IV Q15M PRN; Protocol PRN Reason: per Hypoglycemia Standing Ord. Insulin Human Lispro (Insulin Lispro 100 Unit/Ml 3 Ml Vial) 0 unit SUBCUT QIDACHS [facility]; Protocol Last Admin: 08/07/24 07:29 Dose: Not Given Documented By: ASHLEE Non-Admin Reason: No Insulin Coverage Lorazepam (Lorazepam 1 Mg Tablet) 1 mg PO BEDTIME PRN PRN Reason: Anxiety Magnesium Hydroxide (Milk Of Magnesia 30 Ml Oral.Susp) 30 ml PO DAILY PRN PRN Reason: Constipation Melatonin (Melatonin 3 Mg Tablet) 6 mg PO BEDTIME PRN PRN Reason: Insomnia Metoprolol Succinate (Metoprolol Succinate Er 50 Mg Tab.Er.24h) 50 mg PO DAILY [facility]; Protocol Last Admin: 08/06/24 08:11 Dose: Not Given Documented By: SKIP Non-Admin Reason: hold per Nitroglycerin (Nitroglycerin 0.4 Mg Tab.Subl) 0.4 mg SUBLINGUAL Q5M PRN PRN Reason: Chest Pain Ondansetron HCl (Ondansetron Hcl 4 Mg/2 Ml Vial) 4 mg IVPUSH Q8H PRN PRN Reason: Nausea and Vomiting Sodium Biphosphate/Sodium Phosphate (Sodium Phosphate,[place]-Dibasic 133 Ml Enema) 133 ml [place] ONCE PRN PRN Reason: Poor Colonoscopy Prep Results Sodium Chloride (0.9 % Sodium Chloride Flush 3 Ml Syringe) 3 ml IVFLUSH QSHIFT [facility] Last Admin: 08/06/24 20:52 Dose: 3 ml Documented By: SELWYN Valsartan (Valsartan 40 Mg Tablet) 40 mg PO DAILY [facility]; Protocol Last Admin: 08/06/24 08:53 Dose: Not Given Documented By: SKIP Non-Admin Reason: hold per MD low BP Labs 08/07/24 05:34 08/07/24 05:34 Labs: Laboratory Results - last 24 hr 08/06/24 08/06/24 08/06/24 10:54 16:16 20:36 MCV MCH MCHC RDW Plt Count MPV Immature Gran % (Auto) Neut % (Auto) Lymph % (Auto) [place] % (Auto) Eos % (Auto) Baso % (Auto) Lymph # (Auto) [place] # (Auto) Eos # (Auto) Baso # (Auto) Abs Immat Gran (auto) Absolute Neuts (auto) Absolute Nucleated RBC Nucleated RBC % (auto) Anion Gap Estim Creat Clear Calc Estimated GFR POC Glucose 158 H 81 93 Fasting Glucose Calcium 08/07/24 08/07/24 05:34 06:52 MCV 88.9 MCH 27.6 MCHC 31.0 RDW 14.6 Plt Count 169 MPV 10.8 Immature Gran % (Auto) 0.4 Neut % (Auto) 70.1 Lymph % (Auto) 19.5 L [place] % (Auto) 7.4 Eos % (Auto) 2.2 Baso % (Auto) 0.4 Lymph # (Auto) 1.4 [place] # (Auto) 0.5 Eos # (Auto) 0.2 Baso # (Auto) 0.0 Abs Immat Gran (auto) 0.03 Absolute Neuts (auto) 5.1 Absolute Nucleated RBC 0.000 Nucleated RBC % (auto) 0.0 Anion Gap 13 Estim Creat Clear Calc 93.3 Estimated GFR > 60 POC Glucose 128 H Fasting Glucose 119 H Calcium 8.4 Assessment and Plan (1) Bright red rectal bleeding: Status: Acute Plan An 79 years old male with PMH of CAD, HTN, HLD , Gout, DMII presents to the hospital with 2 episodes of BRBPR since yesterday. Acute BRBPR Likely lower GI bleed, internal hemorroids ? rectal mass ? Stable H&H at around 13 CT scan showing diverticulosis but no masses CTA if rebleed GI to do colonoscopy NPO CAD continue atorvastatin, metoprolol Hold Aspirin HTN continue metoprolol; Valsartan + amlodipine DM2 SSI, Diabetic diet, hold MTF VTE ppx SCDs Quality Stroke Does the patient have a stroke diagnosis?: No VTE Prior VTE?: No VTE Risk Level:: Medical - moderate - high VTE Device Contraindication: N/A - Device Ordered VTE Drug Contraindication: Treatment Not Indicated
[2024-08-07 11:17] LABS: Glucose, Whole Blood 100 mg/dL (60-115)
[2024-08-07] MEDS: 0.9 % Sodium Chloride Flush 3 ML SYRINGE IVFLUSH (11:20)
[2024-08-07 13:42] LABS: Glucose, Whole Blood 105 mg/dL (60-115)
[2024-08-07] MEDS: Lactated Ringers 1,000 ML 100 ML IVCONT (13:47)
--- NOTE | 2024-08-07 14:40 | HO.ANESPROP2 ---
HPI - Anesthesia Eval Consult details Narrative: colon screen PMFSH Active Problems Active Problems: All Active Problems Bright red rectal bleeding (Acute) Hoarseness (Acute) Pulmonary nodules (Acute) COVID (Acute) Viral sepsis (Acute) COVID-19 virus infection (Acute) COVID-19 (Acute) Tracheobronchomalacia (Acute) Swelling (Acute) Claudication (Acute) Pyelonephritis (Acute) Bacteremia (Acute) SOB (shortness of breath) on exertion (Acute) Community acquired pneumonia (Acute) Pneumonia (Acute) Pulmonary nodule (Acute) Pneumonia (Acute) Nephrolithiasis (Acute) CAD (coronary artery disease) (Acute) HTN (hypertension) (Acute) Hyperlipidemia (Acute) Obesity (Acute) Past Medical History Medical History Hoarseness Pulmonary nodules COPD (chronic obstructive pulmonary disease) Tracheobronchomalacia Pulmonary nodule COPD (chronic obstructive pulmonary disease) Migrated colon stent Diabetes Hospital-acquired pneumonia Pneumonia Nephrolithiasis Prostate cancer Obesity MAYA (obstructive sleep apnea) Right bundle branch block (RBBB) on electrocardiogram (ECG) Hyperlipidemia HTN (hypertension) Chronic stable angina CAD (coronary artery disease) Family History Family History Father CVD (cardiovascular disease) Mother CVD (cardiovascular disease) Brother CVD (cardiovascular disease) Family history of problems with anesthesia: No Surgical History Surgical History Hx of arthroscopy of knee Hx of lithotripsy Stented coronary artery Hx of cardiac cath Hx laparoscopic cholecystectomy History of basal cell carcinoma (BCC) excision History of carpal tunnel release Hx of hernia repair History of eye surgery Hx of spinal surgery History of Problems with Anesthesia: No Social History Social History Household Members: Spouse Housing: House Are you a primary child care center assistant director to a significant other at home: No Do you presently have visiting nurse or other home services: No Alcohol intake: never Patient Tobacco Use Status: Former Tobacco user Tobacco use type: Cigarette Cigarette Packs Per Day: 1 Cigarettes Per Day: 20.0 Years Smoked: 30+ Smoked in Last 30 Days: No Use of substances other than those prescribed or required for medical reasons: No Currently Displaying Signs/Symptoms of Drug Intoxication Withdrawal: No Have you been hit, kicked, punched, or otherwise hurt by someone within the past year? If so, by whom?: No Do you feel safe in your current relationship?: Yes Advance Directives: No Advance Directives Information Provided: No Advance Directives Date on File: 07/17/21 Do you have a plan to hurt others: No Plan Recently lost weight without trying: No Nutrition Risks: No Nutritional Risk service: No Current occupational status: retired [employer] Allergies Allergy/AdvReac Type Severity Reaction Status Date / Time No Known Allergies Allergy Verified 08/05/24 08:41 Active Medications: Current Medications Acetaminophen (Acetaminophen 325 Mg Tablet) 650 mg PO Q6H PRN PRN Reason: Pain, Mild (Pain Scale 1-3), fever or headache Allopurinol (Allopurinol 100 Mg Tablet) 100 mg PO DAILY [facility] Last Admin: 08/07/24 11:19 Dose: Not Given Amlodipine Besylate (Amlodipine Besylate 5 Mg Tablet) 5 mg PO DAILY [facility]; Protocol Last Admin: 08/06/24 08:11 Dose: Not Given Atorvastatin Calcium (Atorvastatin Calcium 40 Mg Tablet) 40 mg PO BEDTIME [facility] Last Admin: 08/06/24 20:52 Dose: 40 mg Calcium Carbonate (Calcium Carbonate 750 Mg Tab.Chew) 750 mg PO Q4H PRN PRN Reason: Heartburn Cyanocobalamin (Cyanocobalamin (Vitamin B-12) 1,000 Mcg Tablet) 1,000 mcg PO DAILY [facility] Last Admin: 08/07/24 11:19 Dose: Not Given Fluticasone Propionate (Fluticasone Propionate Nasal 16 Gm [place]) 2 spray NOSTRIL-B DAILY [facility] Last Admin: 08/07/24 11:19 Dose: Not Given Fluticasone/Vilanterol (Fluticasone/Vilanterol 100/25 Blst.W.Dev) 1 puff INHALE RDAILY [facility] Last Admin: 08/07/24 08:20 Dose: Not Given Gabapentin (Gabapentin 100 Mg Capsule) 100 mg PO QID@0500,0900,1400,1700 [facility] Last Admin: 08/07/24 11:19 Dose: Not Given Gabapentin (Gabapentin 100 Mg Capsule) 200 mg PO BEDTIME [facility] Last Admin: 08/06/24 20:52 Dose: 200 mg Glucose (Glucose Gel 15 Gm Gel..Gram.) 15 gm PO Q15M PRN; Protocol PRN Reason: per Hypoglycemia Standing Ord. Dextrose (D10) 250 mls @ 750 mls/hr IV Q15M PRN; Protocol PRN Reason: per Hypoglycemia Standing Ord. Lactated Ringer's (Lr) 1,000 mls @ 100 mls/hr IVCONT .Q10H [facility] Last Admin: 08/07/24 13:47 Dose: 100 mls/hr Insulin Human Lispro (Insulin Lispro 100 Unit/Ml 3 Ml Vial) 0 unit SUBCUT QIDACHS [facility]; Protocol Last Admin: 08/07/24 12:42 Dose: Not Given Lorazepam (Lorazepam 1 Mg Tablet) 1 mg PO BEDTIME PRN PRN Reason: Anxiety Magnesium Hydroxide (Milk Of Magnesia 30 Ml Oral.Susp) 30 ml PO DAILY PRN PRN Reason: Constipation Melatonin (Melatonin 3 Mg Tablet) 6 mg PO BEDTIME PRN PRN Reason: Insomnia Metoprolol Succinate (Metoprolol Succinate Er 50 Mg Tab.Er.24h) 50 mg PO DAILY [facility]; Protocol Last Admin: 08/07/24 11:19 Dose: Not Given Naloxone HCl (Naloxone Hcl 0.4 Mg/Ml Vial) 0.04 mg IVPUSH Q5M PRN PRN Reason: Excessive sedation or RR < 8 Nitroglycerin (Nitroglycerin 0.4 Mg Tab.Subl) 0.4 mg SUBLINGUAL Q5M PRN PRN Reason: Chest Pain Ondansetron HCl (Ondansetron Hcl 4 Mg/2 Ml Vial) 4 mg IVPUSH Q8H PRN PRN Reason: Nausea and Vomiting Sodium Biphosphate/Sodium Phosphate (Sodium Phosphate,[place]-Dibasic 133 Ml Enema) 133 ml DE ONCE PRN PRN Reason: Poor Colonoscopy Prep Results Sodium Chloride (0.9 % Sodium Chloride Flush 3 Ml Syringe) 3 ml IVFLUSH QSHIFT [facility] Last Admin: 08/07/24 11:20 Dose: 3 ml Valsartan (Valsartan 40 Mg Tablet) 40 mg PO DAILY [facility]; Protocol Last Admin: 08/07/24 11:18 Dose: Not Given Home Medications ?Medication ?Instructions ?Recorded ?Confirmed ?Last Taken ?Type allopurinol 100 mg tablet 100 mg PO DAILY 09/16/20 08/05/24 08/05/24 09:00 History amlodipine 5 mg tablet 5 mg PO DAILY 02/20/22 08/05/24 08/05/24 09:00 History aspirin 81 mg tablet,delayed 81 mg PO DAILY 03/20/22 08/05/24 08/05/24 09:00 History release gabapentin 300 mg capsule 200 mg PO BEDTIME Pain 07/13/22 08/05/24 07/13/22 History (Neurontin) metformin 500 mg tablet 250 mg PO BIDWM 09/17/22 08/05/24 08/05/24 09:00 History cyanocobalamin (vitamin B-12) 1,000 mcg PO DAILY 07/25/23 08/05/24 08/05/24 09:00 History 1,000 mcg tablet valsartan 40 mg tablet 40 mg PO DAILY 09/01/23 08/05/24 08/05/24 09:00 History gabapentin 100 mg capsule 100 mg PO QID@05,09,14,17 08/05/24 08/05/24 08/05/24 09:00 History lorazepam 1 mg tablet 1 mg PO BEDTIME PRN Anxiety 08/05/24 08/05/24 Unknown History Exam Height,Weight and Vital Signs: Height 5 ft 10 in Weight 117.3 kg Last Vital Signs Temp 97.3 F 08/07/24 13:44 Pulse 96 08/07/24 13:44 Resp 16 08/07/24 13:44 BP 133/68 08/07/24 13:44 Pulse Ox 92 08/07/24 13:44 O2 Del Method Room Air 08/07/24 13:44 Pertinent Lab Results Pertinent Lab Results: Laboratory Tests 08/05/24 08/05/24 08/05/24 08:50 09:36 16:11 WBC 7.2 RBC 4.92 Hgb 13.7 L Hct 43.3 MCV 88.0 MCH 27.8 MCHC 31.6 RDW 14.6 Plt Count 175 MPV 10.1 Immature Gran % (Auto) 0.4 Neut % (Auto) 64.5 Lymph % (Auto) 22.5 [place] % (Auto) 8.7 Eos % (Auto) 3.3 Baso % (Auto) 0.6 Lymph # (Auto) 1.6 [place] # (Auto) 0.6 Eos # (Auto) 0.2 Baso # (Auto) 0.0 Abs Immat Gran (auto) 0.03 Absolute Neuts (auto) 4.7 Absolute Nucleated RBC 0.000 Nucleated RBC % (auto) 0.0 Sodium 143 Potassium 4.5 Chloride 107 Carbon Dioxide 30 H Anion Gap 11 L BUN 20 H Creatinine 0.96 Estim Creat Clear Calc 78.7 Estimated GFR > 60 POC Glucose 169 H Random Glucose 132 H Fasting Glucose Calcium 8.6 Total Bilirubin 0.5 AST 19 ALT 15 Alkaline Phosphatase 119 H Total Protein 6.3 L Albumin 3.6 Stool Occult Blood POSITIVE 08/05/24 08/06/24 08/06/24 20:33 05:12 07:21 WBC 6.8 RBC 4.72 Hgb 12.9 L Hct 42.4 MCV 89.8 MCH 27.3 MCHC 30.4 L RDW 14.7 Plt Count 165 MPV 10.6 Immature Gran % (Auto) Neut % (Auto) Lymph % (Auto) [place] % (Auto) Eos % (Auto) Baso % (Auto) Lymph # (Auto) [place] # (Auto) Eos # (Auto) Baso # (Auto) Abs Immat Gran (auto) Absolute Neuts (auto) Absolute Nucleated RBC 0.000 Nucleated RBC % (auto) 0.0 Sodium 141 Potassium 4.8 Chloride 106 Carbon Dioxide 26 Anion Gap 14 BUN 21 H Creatinine 0.95 Estim Creat Clear Calc 79.5 Estimated GFR > 60 POC Glucose 127 H 144 H Random Glucose 144 H Fasting Glucose Calcium 8.8 Total Bilirubin AST ALT Alkaline Phosphatase Total Protein Albumin Stool Occult Blood 08/06/24 08/06/24 08/06/24 10:54 16:16 20:36 WBC RBC Hgb Hct MCV MCH MCHC RDW Plt Count MPV Immature Gran % (Auto) Neut % (Auto) Lymph % (Auto) [place] % (Auto) Eos % (Auto) Baso % (Auto) Lymph # (Auto) [place] # (Auto) Eos # (Auto) Baso # (Auto) Abs Immat Gran (auto) Absolute Neuts (auto) Absolute Nucleated RBC Nucleated RBC % (auto) Sodium Potassium Chloride Carbon Dioxide Anion Gap BUN Creatinine Estim Creat Clear Calc Estimated GFR POC Glucose 158 H 81 93 Random Glucose Fasting Glucose Calcium Total Bilirubin AST ALT Alkaline Phosphatase Total Protein Albumin Stool Occult Blood 08/07/24 08/07/24 08/07/24 05:34 06:52 11:10 WBC 7.3 RBC 4.97 Hgb 13.7 L Hct 44.2 MCV 88.9 MCH 27.6 MCHC 31.0 RDW 14.6 Plt Count 169 MPV 10.8 Immature Gran % (Auto) 0.4 Neut % (Auto) 70.1 Lymph % (Auto) 19.5 L [place] % (Auto) 7.4 Eos % (Auto) 2.2 Baso % (Auto) 0.4 Lymph # (Auto) 1.4 [place] # (Auto) 0.5 Eos # (Auto) 0.2 Baso # (Auto) 0.0 Abs Immat Gran (auto) 0.03 Absolute Neuts (auto) 5.1 Absolute Nucleated RBC 0.000 Nucleated RBC % (auto) 0.0 Sodium 143 Potassium 4.2 Chloride 107 Carbon Dioxide 27 Anion Gap 13 BUN 12 Creatinine 0.81 Estim Creat Clear Calc 93.3 Estimated GFR > 60 POC Glucose 128 H 100 Random Glucose Fasting Glucose 119 H Calcium 8.4 Total Bilirubin AST ALT Alkaline Phosphatase Total Protein Albumin Stool Occult Blood 08/07/24 13:32 WBC RBC Hgb Hct MCV MCH MCHC RDW Plt Count MPV Immature Gran % (Auto) Neut % (Auto) Lymph % (Auto) [place] % (Auto) Eos % (Auto) Baso % (Auto) Lymph # (Auto) [place] # (Auto) Eos # (Auto) Baso # (Auto) Abs Immat Gran (auto) Absolute Neuts (auto) Absolute Nucleated RBC Nucleated RBC % (auto) Sodium Potassium Chloride Carbon Dioxide Anion Gap BUN Creatinine Estim Creat Clear Calc Estimated GFR POC Glucose 105 Random Glucose Fasting Glucose Calcium Total Bilirubin AST ALT Alkaline Phosphatase Total Protein Albumin Stool Occult Blood Airway Mallampati Class: III TM Dist: >3cm Neck ROM: Limited Heart: rrr Lungs: cta Assessment and Plan Assessment Anesthesia Assessment: Anesthesia Plan Discussed and Chart Reviewed Final Anesthetic Review Family History of Problems with Anesthesia: No History of Problems with Anesthesia: No NPO: Yes ASA Class: III Final Preanesthetic Review: No Changes in Pt Med Stat, Meds/Allgs Chart Reviewed, Consent Obtained/Reviewed and Anes Risks/Benef Reviewed Patient Risk: Intermediate Procedure Risk: Low Anesthetic Plan Anesthetic Plan: MAC: Disposition: Standard PACU
--- NOTE | 2024-08-07 15:16 | MHC.CM.PN ---
PER ROUNDS PT TO HAVE A COLONOSCOPY ?>DC TODAY PENDING RESULTS DC PLAN REMAINS HOME NO SERVIES
--- NOTE | 2024-08-07 16:24 | PM.OP ---
Brief Operative Note Date of Service: 08/07/24 Pre-op diagnosis: Rectal bleeding Post-op diagnosis: other (Internal hemorrhoids, Diverticulosis) Procedure: Colonoscopy to the cecum and TI Surgeon: Dmitri Mcclain MD Anesthesia: MAC Was an Automobile Mechanic Radiator used for this Procedure?: No Estimated blood loss (mL): 0 Pathology: none sent Condition: stable Disposition: PACU
--- NOTE | 2024-08-07 16:27 | PM.EVENT ---
Event Note Date of Service: 08/07/24 Event Note: GI-Colonoscopy to the cecum and TI Findings: 1. Sigmoid diverticulosis 2. Internal hemorrhoids No polyps, masses, colitis, nor bleeding Rec: Advance diet. Treat hemorrhoidal bleeding symptomatically with Preparation H or Anusol suppositories, or refer to Dr. Perez if things remain problematic. Discharge this evening or by tomorrow if stable. Please call me if questions or problems. D/W with his as well. Thanks. Time Spent With Patient Time: Total time managing care of this patient today ____ minutes.
--- NOTE | 2024-08-07 16:57 | P.DS_ITS ---
DS: Providers Provider Date of Service: 08/07/24 Date of admission: 08/05/24 12:56 Date of discharge: 08/07/24 Primary care physician: Jaxon Coffman MD Consults: 08/05/24 12:56 Consult to Gastroenterology Routine Consulting Provider: Dmitri Mcclain Reason for consultation: episodes of BRBPR for eval and rec. DS: Diagnosis Discharge Diagnosis (1) Bright red rectal bleeding: Status: Resolved DS: Summary Hospital Course Hospital Course: Admission note HPI An 79 years old male with PMH of CAD, HTN, HLD , Gout, DMII presents to the hospital with 2 episodes of BRBPR since yesterday. The patient reports noticing blood while whiping but no bloody bowel motions reported or abdominal pain. No melena. No chest pain, palpitations, SOB, nausea, vomiting, diarrhea or urinary symptoms. The patient can not recall exactly his last colonoscopy but it was recent years with reported polyp but no masses. His Hb stable around 13. on CT exam there was large amount of red blood. Will admit for observation. Hospital course The patient was admitted for evaluation of acute BRBPR. CT scan showing diverticulosis but no masses. Evaluated by GI specialist dr Mcclain did a Colonoscopy showing evidence of internal hemorroids, Diverticulosis. Stable H&H at around 13. To use Hemorrhoid creams and avoid constipation. Discharge plan Colonoscopy done with evidence of hemorroids and diverticulosis. Avoid constipation use Preparation H twice daily Follow up with dr Mcclain as needed Time Attestation Discharge Coordination Time (in mins): 38 Quality: Safe Use of Opioids Does Pt have an Active Cancer Diagnosis on the Problem List?: No Quality: Stroke Does the patient have a stroke diagnosis?: No Physical Exam Vital Signs: Vital Signs: Last Vital Signs Temp 98.4 F 08/07/24 16:35 Pulse 98 08/07/24 16:35 Resp 20 08/07/24 16:35 BP 124/65 08/07/24 16:35 Pulse Ox 95 08/07/24 16:35 O2 Del Method Room Air 08/07/24 16:35 O2 Flow Rate 3 08/07/24 16:20 BMI result Body Mass Index 37.1 Const: Other: Constitutional : Awake, interactive, not in distress Neck : Normal inspection, Supple Cardiovascular : RRR, no JVP, no lower extremity edema Respiratory : good bilateral air entry, no crackles, wheezes or rhonchi Gastrointestinal: soft, lax, Normal bowel sounds, Non tender Skin : Warm, Dry Neurological : Alert & oriented x3, No focal deficit DS: Data Data Completed and Pending Completed studies during hospitalization [Text1]: Procedures Introduction of Remdesivir Anti-infective into Peripheral Vein, Percutaneous Approach, [employer] 5 (07/25/23) Labs on day of discharge: Laboratory Results - last 24 hr 08/06/24 08/07/24 08/07/24 20:36 05:34 06:52 WBC 7.3 RBC 4.97 Hgb 13.7 L Hct 44.2 MCV 88.9 MCH 27.6 MCHC 31.0 RDW 14.6 Plt Count 169 MPV 10.8 Immature Gran % (Auto) 0.4 Neut % (Auto) 70.1 Lymph % (Auto) 19.5 L [place] % (Auto) 7.4 Eos % (Auto) 2.2 Baso % (Auto) 0.4 Lymph # (Auto) 1.4 [place] # (Auto) 0.5 Eos # (Auto) 0.2 Baso # (Auto) 0.0 Abs Immat Gran (auto) 0.03 Absolute Neuts (auto) 5.1 Absolute Nucleated RBC 0.000 Nucleated RBC % (auto) 0.0 Sodium 143 Potassium 4.2 Chloride 107 Carbon Dioxide 27 Anion Gap 13 BUN 12 Creatinine 0.81 Estim Creat Clear Calc 93.3 Estimated GFR > 60 POC Glucose 93 128 H Fasting Glucose 119 H Calcium 8.4 08/07/24 08/07/24 11:10 13:32 WBC RBC Hgb Hct MCV MCH MCHC RDW Plt Count MPV Immature Gran % (Auto) Neut % (Auto) Lymph % (Auto) [place] % (Auto) Eos % (Auto) Baso % (Auto) Lymph # (Auto) [place] # (Auto) Eos # (Auto) Baso # (Auto) Abs Immat Gran (auto) Absolute Neuts (auto) Absolute Nucleated RBC Nucleated RBC % (auto) Sodium Potassium Chloride Carbon Dioxide Anion Gap BUN Creatinine Estim Creat Clear Calc Estimated GFR POC Glucose 100 105 Fasting Glucose Calcium Imaging CT scan - abdomen: Radiologist's impression: ITS Impressions Abdomen/Pelvis CT 08/05/24 09:37 IMPRESSION: 1. 2 large bladder stones within the neck of the bladder. 2. Extensive postsurgical changes as above. 3. Stable saccular aneurysm infrarenal level. 4. Diverticulosis without acute inflammatory changes. No specific findings explain patient's clinical symptoms. Recommend GI assessment especially if symptoms persist. Fleischner guidelines were followed. Electronically signed by: Michael Hylton MD 08/05/2024 12:02 PM EDT Discharge Plan Discharge Anticipated Discharge Date/Time: 08/07/24 16:54 Patient Disposition: Home, Self-Care Discharge Diagnosis: Hemorroidal bleeding Referrals: Jaxon Coffman MD [Primary Care Provider] - 1 Week Discharge Medications: New hydrocortisone [Proctozone-HC] 2.5 % Cream With Perineal Applicator [address] BID Qty: 30 1RF Continued nitroglycerin 0.4 mg tablet, sublingual 0.4 mg SUBLINGUAL Q5M PRN (Reason: Chest Pain) Qty: 25 2RF metoprolol succinate 50 mg tablet extended release 24 hr 50 mg PO DAILY Qty: 90 3RF fluticasone propion-salmeterol 232-14 mcg/actuation aerosol powdr breath activated 1 inh inhalation BID Qty: 1 3RF atorvastatin 40 mg tablet 40 mg PO BEDTIME 90 Days Qty: 90 3RF aspirin 81 mg Tablet,Delayed Release (Dr/Ec) 81 mg PO DAILY (DME) FreeStyle Lite Strips Strip Qty: 100 0RF Rx Instructions: Test four times a day or as directed. (DME) blood-glucose meter [FreeStyle Lite Meter] Kit Qty: 1 0RF Rx Instructions: As Directed (DME) lancets [FreeStyle Lancets] 28 gauge Misc Qty: 100 0RF Rx Instructions: Test four times a day or as directed. amlodipine 5 mg tablet 5 mg PO DAILY gabapentin [Neurontin] 300 mg capsule 200 mg PO BEDTIME metformin 500 mg tablet 250 mg PO BIDWM cyanocobalamin (vitamin B-12) 1,000 mcg Tablet 1,000 mcg PO DAILY gabapentin 100 mg capsule 100 mg PO QID@05,09,14,17 lorazepam 1 mg tablet 1 mg PO BEDTIME PRN (Reason: Anxiety) allopurinol 100 mg tablet 100 mg PO DAILY valsartan 40 mg tablet 40 mg PO DAILY fluticasone propionate 50 mcg/actuation spray,suspension 2 spray intranasal DAILY 30 Days Qty: 15.8 11RF Discharge Orders: Discharge Order (Routine); Ordered 08/07/24 Ordered By: Aviva Wilder Diet: Diabetic diet Activity on Discharge: As tolerated Stand Alone Forms: Patient Portal Discharge page Print Language: Turkmen Care Plan Goals: Colonoscopy done with evidence of hemorroids and diverticulosis. Avoid constipation use Preparation H twice daily Follow up with dr Mcclain as needed Health Concerns: Read below Plan of Treatment: Read below Assessment: Read below Discharge Date/Time: 08/07/24 18:11
[2024-08-07 17:05] LABS: Glucose, Whole Blood 93 mg/dL (60-115)
--- NOTE | 2024-08-08 00:18 | OP_ITS ---
DATE OF SERVICE: 08/07/2024 SURGEON: Dmitri Mcclain MD INDICATIONS: The patient presents for evaluation of intermittent hematochezia. Full consent has been obtained from him for this, including risks of bleeding and perforation. PREOPERATIVE DIAGNOSIS: Hematochezia. POSTOPERATIVE DIAGNOSIS: Hematochezia, diverticulosis, and internal hemorrhoids. PROCEDURE PERFORMED: Colonoscopy to the cecum and terminal ileum. ESTIMATED BLOOD LOSS: COMPLICATIONS: ANESTHESIA: Monitored anesthesia care. ASSISTANTS: SPECIMENS: DESCRIPTION OF PROCEDURE: The patient was placed in the left lateral decubitus position. The digital rectal exam revealed no abnormalities. The Olympus video pediatric colonoscope was entered into the rectum and advanced easily to the cecum. Once in the cecum, I did identify normal-appearing cecal pouch with appendiceal orifice and a normal-appearing ileocecal valve. The terminal ileum was cannulated and appeared normal. The scope was withdrawn back in the colon. The entire cecum and ileocecal valve appeared normal. The scope was then slowly withdrawn assessing all mucosal surfaces carefully. Preparation became excellent after a lot of irrigation and suctioning. There was no sign of any blood in the GI tract. I did not visualize any sign of polyps, colitis, nor angiodysplasia. There was a mild to moderate amount of sigmoid diverticulosis. In the rectum, scope was retroflexed visualizing some internal hemorrhoids, but no other pathology. The rectal mucosa appeared normal. There was no blood in the rectum. The scope was withdrawn from the patient. He tolerated the procedure well and was returned to the recovery area in stable condition. IMPRESSION: 1. Internal hemorrhoids. 2. Diverticulosis. PLAN: At this point, the patient has remained stable with his most recent hemoglobin of 13.7 as of this morning. His diet will be advanced. I suspect he could be discharged either later today or by tomorrow. If he continues to have bleeding from hemorrhoids, then he may need to see Dr. Perez for further evaluation that regard. MD JESU Niño/DAMIÁN / [id number] MTDD
== END 2024-08-07 18:11 | disposition home or self-care (01) ==
LOC: HO.ED 12:21 → HO.EDOVER 13:03 → HO.S3 14:24
PROVIDERS: Internal Medicine; Admitting Provider Student in an Organized Health Care Education/Training Program; Emergency Provider Emergency Medicine; PCP Internal Medicine; Visit Provider Student in an Organized Health Care Education/Training Program
PROC: 0DJD8ZZ Inspection of Lower Intestinal Tract, Via Natural or Artificial Opening Endoscopic (ICD-10-PCS; CPT 45378; principal; 2024-08-07 15:20)
DX: K62.5 Hemorrhage of anus and rectum (principal); K57.90 Diverticulosis of intestine, part unspecified, without perforation or abscess without bleeding; K64.8 Other hemorrhoids; J44.9 Chronic obstructive pulmonary disease, unspecified; E11.9 Type 2 diabetes mellitus without complications; I10 Essential (primary) hypertension; M10.9 Gout, unspecified; E78.5 Hyperlipidemia, unspecified; I25.10 Atherosclerotic heart disease of native coronary artery without angina pectoris; Z85.46 Personal history of malignant neoplasm of prostate; Z79.899 Other long term (current) drug therapy; Z23 Encounter for immunization
CPT/HCPCS: 45378; 36415; 74176; 80048; 80053; 82272; 82947; 85025; 85027; 90471; 90656; 96360; 96361; 99221; 99285; J2704; J3010; J7120

== ENCOUNTER → 2024-08-05 12:56 | Outpatient (BNV) | payer MEDICARE, SELFPAY | PROVIDERS: Admitting Provider Student in an Organized Health Care Education/Training Program; Emergency Provider Emergency Medicine; PCP Internal Medicine; Visit Provider Student in an Organized Health Care Education/Training Program | DX: K62.5 Hemorrhage of anus and rectum (principal); I25.10 Atherosclerotic heart disease of native coronary artery without angina pectoris; I10 Essential (primary) hypertension; E11.9 Type 2 diabetes mellitus without complications | CPT/HCPCS: 99222; 99232; 99239 ==

== ENCOUNTER 2024-10-10 08:26 | Outpatient (AMB) | payer MEDICARE, SELFPAY ==
[2024-10-10 08:39] VITALS: BP 132/62; PULSE 68; O2SAT 92; BMI 38.3
--- NOTE | 2024-10-10 08:39 | A.OFFVIS_ITS ---
Vital Signs 10/10/24 08:39 Height 5 ft 10 in Weight 266 lb 12.149 oz BMI 38.3 BP 132/62 Blood Pressure Location Lt brachial Position Sitting Pulse 68 Pulse Source Pulse Oximeter Pulse Oximetry (%) 92 Oxygen Delivery Method Room Air Intake Visit Reasons: COPD Cupola Tender Required: No Die Holder: Die Holder offered & declined Accompanied by: Self / Same As Patient Allergies No Known Allergies Allergy (Verified 10/10/24 08:43) Medication List - Last Reconciled 10/10/24 by Cathy De Luna LPN allopurinol 100 mg PO DAILY amlodipine 5 mg PO DAILY aspirin 81 mg PO DAILY atorvastatin 40 mg PO BEDTIME 90 days blood sugar diagnostic (FreeStyle Lite Strips) Test four times a day or as directed. blood-glucose meter (FreeStyle Lite Meter kit) As Directed cyanocobalamin (vitamin B-12) 1,000 mcg PO DAILY fluticasone propion-salmeterol 232-14 mcg/actuation 1 inh inhalation BID fluticasone propionate 50 mcg/actuation 2 sprays intranasal DAILY 30 days gabapentin (Neurontin) 200 mg PO BEDTIME gabapentin 100 mg PO QID@05,09,14,17 hydrocortisone 2.5% (Proctozone-HC) 1 appl AR BID lancets (FreeStyle Lancets) Test four times a day or as directed. lorazepam 1 mg PO BEDTIME PRN metformin 250 mg PO BIDWM metoprolol succinate ER 50 mg PO DAILY nitroglycerin 0.4 mg sublingual Q5M PRN valsartan 40 mg PO DAILY HPI Comments Details: The patient is a 79-year-old gentleman with a question history of COPD who presents with worsening dyspnea and abnormal CT scan of the chest. He states for the last several months the patient does get short of breath with activity. If he climbs up at down stairs she does get short of breath. [id number] severity. Apparently he was seen in the ER for worsening respiratory symptoms. 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 Therefore, the patient is referred to Pulmonary. Overall the patient feels well. He stays active. He denies any significant coughing. 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 In addition to that he does have a smoking history. He also complains of daytime drowsiness. He has a hard time sleeping in does wake up short of breath at times. The patient has underlying COPD and based on hypoxia he should have a overnight oximetry to see if he qualifies for nocturnal oxygen. ? 08/10/2022 the patient is here for a pulmonary follow-up visit. The patient has had a very vent full spring and summer. Apparently [facility] with left lower lobe pneumonias and also underwent a percutaneous cardiac intervention with couple stents placed for the heart. Subsequently after that he then developed another bout of pneumonia this time on the right side. He has been concerned with the multiple pneumonias. He does get x-rays demonstrating clearing of the process after worse. He has not been using the oxygen and he wants the oxygen to be picked up at this time and I will do may make an order for that to happen. The patient also has been having issues with wheezing chest tightness as well. This is moderate severity. The patient has had very abnormal x-rays. Therefore I will request a CT scan of the chest to better address the recurrent pneumonias. The patient will also undergo blood work and start a course of antibiotics at this time. The patient does benefit from prednisone although he has concerns about his elevated sugars. Therefore will do a low-dose prednisone at this time. 06/01/2023 the patient is here for a pulmonary follow-up visit. He continues to have a significant productive cough. Difficult to expectorate. Moderate severity. The cough medication with codeine was not very effective for him. He kept coughing through the night. He was given a different cough medication in the past that seemed to work better. I do not have any records of it and we did call 3 different pharmacy tried identify the medication but still not clear. He will continue taking the guaifenesin with codeine for now. In meantime he did have a CT scan of the chest that we did evaluate. Appears to have a small right upper lobe nodular density measuring 1 cm. Although it is very ill-defined and indeed could be related to scarring. The patient also has some treating budding the right lower lobe area and has some chronic airway issues. 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 Will start CPT with acapella valve. 09/01/2023 the patient is here for a hospital follow-up visit. The patient apparently did have COVID-19 and did have significant acute on chronic respiratory failure along with COVID pneumonia. The patient did have a CT scan of the chest while he was in the hospital demonstrating areas of nodular ground- glass densities bilaterally. Also some lymphadenopathy. The ground-glass nodular densities were not present on his last ct scan last year. Therefore, will go ahead and repeat the CT scan in 3 months' time to make sure this large ground-glass nodular densities resolved. If they are still present then additional diagnostic interventions will be warranted. 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 It is very limited very severe. Will start him on azithromycin 3 times a week to see if we can help him with decreased mucus secretions and chronic bronchitis. In the future could c onsider referral to Interventional Pulmonary. But, stents in these central airways can be problematic with they can be dislodged. tracheoplasty is an option but with based on his age and his comorbidities is not worth the risk. 12/06/2023 the patient is here for a pulmonary follow-up visit. The patient overall has been feeling better. Although he continues with persistent cough. Also underwent surgery for problems with his bladder prolapse. This appears to be healing well. He did have a repeat CT scan of the chest demonstrating interval resolution of the ground-glass nodular densities suggesting more inflammatory infectious etiology. 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 Very narrow. The patient does not want undergo surgery. I do not believe a stent will be helpful as this is only a temporary fix. He did respond well to the azithromycin 3 times a week and also does well with the codeine cough syrup. He had 1 prescription last than 4 a prolonged period of time so therefore we know that he has not over taking the codeine syrup. Does have a significant condition that will result in a chronic cough. He is also responding well to the AirDuo inhaler. This is a lot more financially feasible for him and it is helping. 03/29/2024 the patient is here for a pulmonary follow-up visit. Overall the patient has been well. He had stopped his respiratory regimen in part because he was feeling better. Although then started noticing worsening respiratory symptoms. He did restart the inhaler and also the nebulized therapy. He also started the chest PT with the Acapella valve. The patient also restarted the azithromycin. We did review and personally reviewed his last CT scan of the chest done November 2023. Appears that the nodular densities have significantly improved which is very reassuring. Therefore, he is responding to his current regimen in addition to the azithromycin. He should continue the therapy as long as his QT interval is within normal limits. He will get the Prevnar 20 vaccine today that will be lifelong coverage for pneumococcal pneumonia. otherwise patient is Complaining of worsening hoarseness. Explained to him that it could be from the respiratory medication. He is to make sure to rinse well ideally with mouthwash. Still he does have significant cobblestoning postnasal drip. he will start using nasal steroids therapy. I will also refer him to ENT just to have a baseline laryngoscopy and make sure he does not have any thing abnormal with the vocal cords. 10/10/2024 the patient is here for a pulmonary follow-up visit. Overall the patient is doing well. He has responded well to the current respiratory regimen. He stop the azithromycin. He has gotten all his vaccines. Recent imaging to review. The patient still having some shortness of breath. Unfortunately continues to gravitate towards salty foods. He does have lower extremity edema. 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 He is going to work on dietary restrictions as well. His respiratory exam is reassuring. Therefore would not going to make any changes at this time. Follow-up in 6 months. If he has any issues prior to that he will call for an earlier assessment [facility] Medical History Hoarseness Pulmonary nodules COPD (chronic obstructive pulmonary disease) Tracheobronchomalacia Pulmonary nodule COPD (chronic obstructive pulmonary disease) Migrated colon stent Diabetes Hospital-acquired pneumonia Pneumonia Nephrolithiasis Prostate cancer Obesity MAYA (obstructive sleep apnea) Right bundle branch block (RBBB) on electrocardiogram (ECG) Hyperlipidemia HTN (hypertension) Chronic stable angina CAD (coronary artery disease) Surgical History Hx of arthroscopy of knee Hx of lithotripsy Stented coronary artery Hx of cardiac cath Hx laparoscopic cholecystectomy History of basal cell carcinoma (BCC) excision History of carpal tunnel release Hx of hernia repair History of eye surgery Hx of spinal surgery Family History Father CVD (cardiovascular disease) Mother CVD (cardiovascular disease) Brother CVD (cardiovascular disease) Social History Household Members: Spouse Housing: House Are you a primary nurse care manager to a significant other at home: No Do you presently have visiting nurse or other home services: No Alcohol intake: never Patient Tobacco Use Status: Former Tobacco user Tobacco use type: Cigarette Cigarette Packs Per Day: 1 Cigarettes Per Day: 20.0 Years Smoked: 30+ Advance Directives Date on File: 07/17/21 service: No Current occupational status: retired Review of Systems Const Denies fever(s) Eyes Denies loss of vision ENT Reports hoarseness, Denies nasal congestion, Denies nasal discharge and Denies post nasal drip Card Denies chest pain and Reports dyspnea on exertion Resp Denies chest congestion, Reports cough, Denies hemoptysis, Reports dyspnea on exertion and Denies wheezing GI Reports no additional complaints Reports no additional complaints Musc Reports no additional complaints Skin/Breast Denies rash Neuro Reports no additional complaints and Denies loss of vision Endo Reports no additional complaints Aller/Immun Denies wheezing Physical Exam Vital Signs: Last Vital Signs Pulse 68 10/10/24 08:39 BP 132/62 10/10/24 08:39 Pulse Ox 92 10/10/24 08:39 Oxygen Delivery Method Room Air 10/10/24 08:39 BMI result Body Mass Index 38.3 Const General: alert HEENT Throat: Yes posterior oropharynx abnormal and Yes cobblestoning Neck Neck: Yes normal visual inspection, Yes full ROM and Yes no lymphadenopathy Chest Chest palpation & inspection: normal inspection of the chest Resp Effort & Inspection: normal respiratory effort Auscultation: no rhonchi, no wheezes and diminished lung sounds Cardio Rate: regular rate Rhythm: regular rhythm Heart sounds: S1 normal heart sound present and S2 normal heart sound present GI Palpation (GI): Soft to palpation and nontender Auscultation: normal bowel sounds Skin General skin exam: rashes and/or lesions noted Assessment & Plan Assessment & Plan (1) CAD (coronary artery disease): Comment: s/p PCI x 2 stents 04/05 Code(s): I25.10 - Atherosclerotic heart disease of [place] coronary artery without angina pectoris Category: Medical Qualifiers: Associated angina: with other forms of angina Coronary Disease- Associated Artery/Lesion type: unspecified vessel or lesion type [place] vs. transplanted heart: unspecified whether [place] or transplanted heart Qualified Code(s): I25.118 - Atherosclerotic heart disease of [place] coronary artery with other forms of angina pectoris (2) Pulmonary nodule: Code(s): R91.1 - Solitary pulmonary nodule Category: Medical (3) Tracheobronchomalacia: Code(s): J39.8 - Other specified diseases of upper respiratory tract Category: Medical (4) Hoarseness: Code(s): R49.0 - Dysphonia Category: Medical Plan continue airduo Short-acting beta agonist as needed continue fluticasone nasal spray cough syrup completed Azithromycin MWF, EKG acapella valve for CPT ENT referral for evaluation of persistent hoarseness no significant findings . Follow-up in 4-6 months Medications: New codeine-guaifenesin 10-100 mg/5 mL 10 mL PO Q6H PRN 300 mL 0RF cough 10 days Changed From fluticasone propion-salmeterol 232-14 mcg/actuation 1 inh inhalation BID 1 insert 3RF To fluticasone propion-salmeterol 232-14 mcg/actuation 1 inh inhalation BID 1 ea 11RF 30 days Refilled fluticasone propionate 50 mcg/actuation 2 sprays intranasal DAILY 15.8 mL 11RF 30 days J31.0 - Chronic rhinitis Coding Level of Care Code Est Pt Level 4 (21316) Diagnoses Coronary artery disease with other form of angina pectoris, unspecified vessel or lesion type, unspecified whether [place] or transplanted heart I25.118 Associated angina: with other forms of angina Coronary Disease-Associated Artery/Lesion type: unspecified vessel or lesion type [place] vs. transplanted heart: unspecified whether [place] or transplanted heart Pulmonary nodule R91.1 Tracheobronchomalacia J39.8 Hoarseness R49.0 Time Spent (min) 16
== END 2024-10-10 09:04 | disposition home or self-care (01) ==
PROVIDERS: PCP Internal Medicine; Visit Provider Hospitalist
DX: I25.118 Atherosclerotic heart disease of native coronary artery with other forms of angina pectoris (principal); R91.1 Solitary pulmonary nodule; J39.8 Other specified diseases of upper respiratory tract; R49.0 Dysphonia
CPT/HCPCS: 99214

== ENCOUNTER → 2024-10-10 08:26 | Outpatient (BNVA) | payer MEDICARE, SELFPAY | PROVIDERS: PCP Internal Medicine; Visit Provider Hospitalist | DX: J44.9 Chronic obstructive pulmonary disease, unspecified (principal); J39.8 Other specified diseases of upper respiratory tract; J31.0 Chronic rhinitis; R06.02 Shortness of breath; I25.118 Atherosclerotic heart disease of native coronary artery with other forms of angina pectoris; I10 Essential (primary) hypertension; R91.1 Solitary pulmonary nodule; R49.0 Dysphonia; Z87.891 Personal history of nicotine dependence | CPT/HCPCS: 99212 ==

== ENCOUNTER 2024-10-10 09:26 | Outpatient (AMB) | payer MEDICARE, SELFPAY ==
[2024-10-10 09:30] VITALS: BP 120/74; PULSE 63; BMI 38.3
--- NOTE | 2024-10-10 09:30 | MHC.OFFVIS ---
Vital Signs 10/10/24 09:30 Height 5 ft 10 in Weight 266 lb 12.149 oz BMI 38.3 BP 120/74 Blood Pressure Location Lt brachial Position Sitting Pulse 63 Intake Visit Reasons: 6m follow up Intake Note: 6 month follow-up feeling good Institution Director Required: No Allergies No Known Allergies Allergy (Verified 10/10/24 08:43) Medication List - Last Reconciled 10/10/24 by Elver Gale MD allopurinol 100 mg PO DAILY amlodipine 5 mg PO DAILY aspirin 81 mg PO DAILY atorvastatin 40 mg PO BEDTIME 90 days blood sugar diagnostic (FreeStyle Lite Strips) Test four times a day or as directed. blood-glucose meter (FreeStyle Lite Meter kit) As Directed codeine-guaifenesin 10-100 mg/5 mL 10 mL PO Q6H PRN 10 days cyanocobalamin (vitamin B-12) 1,000 mcg PO DAILY fluticasone propion-salmeterol 232-14 mcg/actuation 1 inh inhalation BID 30 days fluticasone propionate 50 mcg/actuation 2 sprays intranasal DAILY 30 days gabapentin (Neurontin) 200 mg PO BEDTIME gabapentin 100 mg PO QID@05,09,14,17 hydrocortisone 2.5% (Proctozone-HC) 1 appl SD BID lancets (FreeStyle Lancets) Test four times a day or as directed. lorazepam 1 mg PO BEDTIME PRN metformin 250 mg PO BIDWM metoprolol succinate ER 50 mg PO DAILY nitroglycerin 0.4 mg sublingual Q5M PRN valsartan 40 mg PO DAILY HPI Comments Details: Dmitri comes for follow-up. Continues to have symptoms of shortness of breath and fatigue after exerting for 20 minutes such as raking his leaves. He has no clear exertional chest pain. No orthopnea, PND, leg edema. Takes all his medications. He thinks this is related to his weight as he is not able to lose weight and is about 30 lb overweight as per him. Denies any palpitations or irregular heartbeat. Takes all his medications. He said his pulmonary medicines have been optimized by Pulmonary and continues to have symptoms. [facility] Medical History Hoarseness Pulmonary nodules COPD (chronic obstructive pulmonary disease) Tracheobronchomalacia Pulmonary nodule COPD (chronic obstructive pulmonary disease) Migrated colon stent Diabetes Hospital-acquired pneumonia Pneumonia Nephrolithiasis Prostate cancer Obesity MAYA (obstructive sleep apnea) Right bundle branch block (RBBB) on electrocardiogram (ECG) Hyperlipidemia HTN (hypertension) Chronic stable angina CAD (coronary artery disease) Surgical History Hx of arthroscopy of knee Hx of lithotripsy Stented coronary artery Hx of cardiac cath Hx laparoscopic cholecystectomy History of basal cell carcinoma (BCC) excision History of carpal tunnel release Hx of hernia repair History of eye surgery Hx of spinal surgery Family History Father CVD (cardiovascular disease) Mother CVD (cardiovascular disease) Brother CVD (cardiovascular disease) Social History Household Members: Spouse Housing: House Are you a primary health care sanitary technician to a significant other at home: No Do you presently have visiting nurse or other home services: No Alcohol intake: never Patient Tobacco Use Status: Former Tobacco user Tobacco use type: Cigarette Cigarette Packs Per Day: 1 Cigarettes Per Day: 20.0 Years Smoked: 30+ Advance Directives Date on File: 07/17/21 service: No Current occupational status: retired Review of Systems Const Denies chills, Denies fatigue, Denies fever(s), Denies frequent falls, Denies weakness, Denies weight gain and Denies weight loss ENT Denies dizziness Card Denies chest pain, Denies leg edema, Denies lightheadedness, Denies palpitations, Denies dyspnea, Denies dyspnea on exertion, Denies orthopnea and Denies other (loss of consciousness) Resp Denies cough, Denies dyspnea and Denies dyspnea on exertion GI Denies hematochezia and Denies change in stool character Musc Denies abnormal gait, Denies muscle weakness, Denies numbness, Denies radiating pain into limb and Denies tingling Neuro Denies abnormal gait, Denies dizziness, Denies frequent falls, Denies numbness, Denies tingling and Denies weakness Endo Denies fatigue and Denies palpitations Physical Exam Vital Signs: Last Vital Signs Pulse 63 10/10/24 09:30 BP 120/74 10/10/24 09:30 BMI result Body Mass Index 38.3 Const General: cooperative, comfortable, no acute distress, alert and awake Nutritional Appearance: obese Orientation/consciousness: patient oriented x3 Limitations: no limitations Neck Neck: Yes trachea midline, Yes supple and Yes no JVD Chest Chest palpation & inspection: normal inspection of the chest Resp Effort & Inspection: normal respiratory effort Auscultation: no rhonchi, wheezes (Occasional) and diminished lung sounds Cardio Jugular venous distension: no JVD Palpation: normal PMI Rate: regular rate Rhythm: regular rhythm Heart sounds: S1 normal heart sound present and S2 normal heart sound present GI Auscultation: normal bowel sounds Skin General skin exam: no rashes or lesions noted Neuro General: patient oriented x3 and no focal motor deficits Extrem General: Yes no clubbing, cyanosis or edema Psych Appearance: grossly normal Assessment & Plan Assessment & Plan (1) SOB (shortness of breath) on exertion: Code(s): R06.02 - Shortness of breath Category: Medical Plan: Patient with persistent exercise intolerance despite adequate pulmonary therapy as per him. Lungs have been clear. Could represent anginal equivalent as in the past although less likely and could be related to microvascular dysfunction. Will refer him for phase 2 cardiac rehabilitation. I think more likely related to his weight and deconditioning. I think he would benefit significantly from weight loss program. Have taken the liberty to prescribe Ozempic on increasing dose. Possible side effects were discussed with him. Continue monitor his glucose closely at home. Recommend echocardiogram to evaluate LV systolic and diastolic function to evaluate for pulmonary hypertension. (2) CAD (coronary artery disease): Comment: s/p PCI x 2 stents 04/05 Code(s): I25.10 - Atherosclerotic heart disease of [place] coronary artery without angina pectoris Category: Medical Qualifiers: Coronary Disease-Associated Artery/Lesion type: unspecified vessel or lesion type [place] vs. transplanted heart: unspecified whether [place] or transplanted heart Associated angina: with other forms of angina Qualified Code(s): I25.118 - Atherosclerotic heart disease of [place] coronary artery with other forms of angina pectoris Plan: CAD status post PCI to 2 different vessels. Patient has continue symptoms exertional shortness of breath. Continue current dual antianginal therapy with amlodipine and metoprolol. Less likely this is related to epicardial stenosis as his myocardial perfusion imaging last year was within normal limits. Although microvascular dysfunction can not be entirely ruled out. Will suggest phase 2 cardiac rehabilitation. Continue aggressive weight loss program. Continue low-dose aspirin therapy for life. Continue high-intensity statin therapy along with ezetimibe. Will follow-up lipid panel in 6 months time. (3) HTN (hypertension): Code(s): I10 - Essential (primary) hypertension Category: Medical Plan: Hypertension which is currently well optimized advised to monitor blood pressure at home maintain a log. Goal blood pressure less than 130/84. Low-salt diet was recommended. Recommend heart healthy lifestyle with increase aerobic activity and weight loss program. Will follow up in the clinic in 6 months time, sooner p.r.n.. Thank you for allowing me to partake in his care Orders: Orders Lipid Panel 6 Months I25.10 - Atherosclerotic heart disease of [place] coronary artery without angina pectoris, I25.118 - Atherosclerotic heart disease of [place] coronary artery with other forms of angina pectoris Cardiac Rehab Today I25.118 - Atherosclerotic heart disease of [place] coronary artery with other forms of angina pectoris CA echo transthoracic complete Today R06.02 - Shortness of breath Medications: New semaglutide (Ozempic) for 4 weeks, followed by 0.5 mg for 4 weeks, followed by 1 mg for 4 weeks, followed by 2 mg for 4 weeks 0.25 mg (0.368 mL) subcut QWEEK 3 mL 5RF I25.118 - Atherosclerotic heart disease of [place] coronary artery with other forms of angina pectoris Coding Level of Care Code Est Pt Level 4 (31730) Complex EM visit Add On G2211 Diagnoses SOB (shortness of breath) on exertion R06.02 Coronary artery disease with other form of angina pectoris, unspecified vessel or lesion type, unspecified whether [place] or transplanted heart I25.118 Coronary Disease-Associated Artery/Lesion type: unspecified vessel or lesion type [place] vs. transplanted heart: unspecified whether [place] or transplanted heart Associated angina: with other forms of angina HTN (hypertension) I10
== END 2024-10-10 10:01 | disposition home or self-care (01) ==
PROVIDERS: PCP Internal Medicine; Visit Provider Internal Medicine Cardiovascular Disease
DX: R06.02 Shortness of breath (principal); I25.118 Atherosclerotic heart disease of native coronary artery with other forms of angina pectoris; I10 Essential (primary) hypertension
CPT/HCPCS: 99214; G2211

== ENCOUNTER → 2024-10-20 10:34 | Outpatient (REF) | payer MEDICARE, SELFPAY ==
--- NOTE | 2024-10-20 10:38 | CA_ITS ---
Transthoracic Echocardiogram Patient (Last, First, Middle): Dmitri Darnell F Gender: Male Date of : 1945 Age: 79 Procedure Date: 10/20/2024 Procedure Type: Transthoracic Echocardiogram Location: OP Height: 177. cm Weight: 120.66 kg BSA: 2.35 m2 Heart Rate: 78 bpm BP: 125 / 65 mmHg Sole Tacker: DAISY Referring MD: Elver Gale MD Symptoms: R06.02 - Shortness of breath Study Quality: Technically Difficult w/Contrast ECG Rhythm: Sinus Conclusions: - Normal left ventricular size and systolic function. There is mildly increased left ventricular wall thickness. The visually estimated ejection fraction is between 55-60%. - Mildly increased right ventricular cavity size. There is normal right ventricular systolic function. - There is mild dilatation of the sinuses of Valsalva measuring 4.30 cm and mild dilatation of the ascending aorta measuring 3.80 cm. Findings Procedure Information Contrast agent, definity, is being given per protocol without apparent complications. The quality of the study was technically difficult. The study quality is limited by patients body habitus. Left Ventricle Normal left ventricular size and systolic function. There is mildly increased left ventricular wall thickness. The visually estimated ejection fraction is between 55-60%. There is no evidence of regional wall motion abnormalities. Diastolic function is normal for age. Right Ventricle Mildly increased right ventricular cavity size. There is normal right ventricular systolic function. Atria The left atrium is likely dilated. The right atrium is likely dilated. Aortic Valve Normal aortic valve structure and function. There is no aortic valve stenosis. There is no aortic valve regurgitation. Mitral Valve The mitral valve appears normal. There is no mitral valve regurgitation. There is no mitral valve stenosis. Pulmonic Valve The pulmonic valve is likely normal. Tricuspid Valve Normal tricuspid valve structure. There is no tricuspid valve regurgitation. Tricuspid regurgitation envelope is inadequate for calculation of right ventricular systolic pressure. Great Vessels There is mild dilatation of the sinuses of Valsalva measuring 4.30 cm and mild dilatation of the ascending aorta measuring 3.80 cm. The visualized portions of the pulmonary artery and branches are normal. Venous The inferior vena cava was not well visualized. Pericardium/Pleural There is no evidence of pericardial effusion. Prior Study Comparison Changes noted compared to prior study dated: 08/20/2021. RA and RV are mildly dilated. Measurements 2D Linear Measurements IVSd: 1.28 0.6-0.9/0.6-1.0 cm LVIDd: 5.01 3.9-5.3/4.2-5.9 cm LVIDd Index: 2.13 2.4-3.2/2.2-3.1 cm/m2 LVIDs: 3.10 2.0-3.6 cm LVPWd: 1.06 0.7-1.1 cm LA Diam: 4.50 2.7-3.8/3.0-4.0 cm LAIDs Index: 1.91 1.5-2.3 cm/m2 LV Mass: 282.17 67-162/88-224 g LV Mass Index: 120.07 43-95/49-115 g/m2 LVOT Diam: 2.10 3.0+(-)1.3 cm 2D Systolic Function EF 4C: 65.60 >55% EF 2C: 55.50 >55% EF BiP: 59.00 >55% Mitral Valve MV Pk E: 0.64 MV PK A: 0.89 MV Decel Time: 257.00 E/A: 0.70 E'Lateral: 9.46 E'Medial: 5.87 E/E' Med: 11.00 E/E' Lat: 6.80 PHT: 75.00 MVA PHT: 2.93 Decel Ferry: 2.50 Aortic Valve AoV Pk Naman: 1.20 AoV Mn Naman: 0.86 AoV VTI: 0.25 AoV Pk Grad: 6.00 Aov Mn Grad: 3.00 RONNIE Cont.VTI: 2.60 LVOT LVOT Pk Naman: 0.86 LVOT Mn Naman: 0.59 LVOT VTI: 0.19 LVOT Pk Grad: 3.00 LVOT Mn Grad: 2.00 LVOT Diam: 2.10 LVOT Area: 3.46 Diastolic Function MV Pk E: 0.64 MV Pk A: 0.89 E/A: 0.70 E'Medial: 5.87 E/E' Med: 11.00 E' Laterial: 9.46 E/E' Lat: 6.80 Right Ventricle TAPSE (mm): 22.90 TVS' Naman: 11.40 Great Vessels Aorta Sinus of Valsalva: 4.30 2.0-3.5 cm Ao Asc: 3.80 2.1-3.4 cm Ao Arch: 2.80 Pulmonary Valve PV Pk Naman: 0.90 Peak PV Grad: 3.00 Updated in Other Vendor System with Status of Final Paramjit Rios MD electronically signed on 10/22/2024 7:17:38 PM with status of Final
--- OUTSIDE RECORDS SUMMARY | 2024-10-25 07:23 | XMS_ITS | Data Portability ---
Author Organization [place] - [facility], Allergy Address [address] [address] Care Team Providers Care Signal Intelligence/Electronic Warfare Name Role Phone CARINE TODD Primary Care Provider CARINE TODD Referring Provider Assessment Encounter Date Assessment Date Assessment LastModified by Organization Details LastModified Time 08/03/2024 08/03/2024 Patient seen at the request of Dr. Steele from pulmonology for an opinion regarding chronic hoarseness. He has a history of COPD and a saber-sheath trachea. Patient notes occasional feeling of something sticking in his throat. He has been on fluticasone nasal spray with some relief. He also notes a sensation of moisture in his right ear. Voice is somewhat typical of phonic. Transnasal fiberoptic examination shows moderate hyperfunction with false vocal fold speech. There is a septal deviation to the right side. I have suggested continuing the fluticasone nasal spray and using 3 drops distilled vinegar twice weekly avoidance of Q-tips to address the right ear canal moisture. andrew Not available 08/03/2024 09:59:14 Plan of Treatment Reminders Order Date Submit Date Provider Last Modified By Organization Details Last Modified Time Details Appointments Establish ed 15 2024 08:45A M MAXIMUS SPRINGER MD Not available Not available Not available Lab None recorded. Referral None recorded. Procedures None recorded. Surgeries None recorded. Imaging None recorded. Medication Orders None recorded. Patient TargetsNo targets recorded. Patient InstructionsNo instructions recorded. Reason for Referral None Reported. Problems Name Problem SNOMED Code Status Onset Date Resolution Date Notes Provider Name and Address Organization Details Recorded Time Chronic obstructive pulmonary disease 15746845 Active 2023 MAXIMUS SPRINGER MD [address] [facility], [place], [address], [facility] - [facility] 4 09:59:17 Chronic hoarseness 0251888378043 Active 2023 MAXIMUS SPRINGER MD [address] [facility], [place], [address], [facility] - [facility] [place] 4 09:59:22 Deviated nasal septum 612844951 Active 2023 MAXIMUS SPRINGER MD [address] [facility], [place], [address], [facility] [place] 4 09:59:44 Chronic non-infecti ve otitis externa 116557972 [facility] 2023 MAXIMUS SPRINGER MD 100 [facility],[address], [place], [address], [facility] [place] 4 10:00:10 Problem Notes None recorded. Procedures Surgical History Date Name Laterality Status Provider Name and Address Organization Details Recorded Time 08/03/20 24 Fiberoptic Laryngoscopy (Comprehensive) completed MAXIMUS VELEZ MD 100 [facility],[address], [address], [facility] 08/03/2024 09:58:07 placement of stent in cardiac conduit completed MAXIMUS VELEZ MD 100 [facility],[address], [address], [facility] 08/03/2024 09:37:30 Imaging Results None recorded. Procedure Notes None recorded. Medical Equipment None Reported. Medications Name Sig Start Date Stop Date Status Note LastModified by Organization Details LastModified Time freestyle lite test strips strp active Not Available Not Available Not Available freestyle lancets misc active Not Available Not Available Not Available atorvastatin 40 mg tablet TAKE ONE TABLET BY MOUTH DAILY AT BEDTIME active Not Available Not Available N ot Available metformin 500 mg tablet TAKE ONE-HALF TABLET BY MOUTH TWICE A DAY active Not Available Not Available No t Available prednisone 10 mg tablet TAKE 4 TABLETS/DAY BY MOUTH FOR 3 DAYS, THEN 3 TABLETS/DAY FOR 2 DAYS, THEN 2 TABLETS/DAY FOR 2 DAYS, THEN 1 TABLET/DAY FOR 2 DAYS. active Not Available Not Available Not Available doxycycline hyclate 100 mg capsule TAKE ONE CAPSULE BY MOUTH TWICE A DAY active Not Available Not Available No t Available ketoconazole 2 % shampoo SHAMPOO TWICE WEEKLY TO RASH. MIX IN HEAD AND SHOULDERS OR OTHER ANTIFUNGAL SHAMPOOS FOR BEST RESULTS. active Not Available Not Available No t Available azithromycin 250 mg tablet TAKE 1 TABLET BY MOUTH 3 TIMES A WEEK FOR 28 DAYS.; INSTR: TAKE 1 TABLET ON WEDNESDAY// Y). active Not Available Not Available No t Available metoprolol succinate ER 50 mg tablet,exten ded release 24 hr TAKE ONE TABLET BY MOUTH EVERY DAY active Not Available Not Available No t Available FreeStyle Lancets 28 gauge USE TO TEST 4 TIMES A DAY active Not Available Not Available No t Available amlodipine 5 mg tablet TAKE 1 TABLET BY MOUTH ONCE A DAY. active Not Available Not Available No t Available allopurinol 100 mg tablet TAKE ONE TABLET BY MOUTH EVERY DAY active Not Available Not Available No t Available lorazepam 0.5 mg tablet TAKE ONE TABLET BY MOUTH DAILY AT BEDTIME NEEDED active Not Available Not Available No t Available cephalexin 500 mg capsule TAKE ONE CAPSULE BY MOUTH FOUR TIMES A DAY active Not Available Not Available Not Available codeine 10 mg-guaifenes in 100 mg/5 mL oral liquid TAKE 10 ML. EVERY 6 HOURS IF NEEDED FOR COUGH FOR 10 DAYS. active Not Available Not Available No t Available gabapentin 100 mg capsule TAKE ONE CAPSULE BY MOUTH FOUR TIMES A DAY AND TAKE 2 CAPSULES AT BEDTIME active Not Available Not Available No t Available lorazepam 1 mg tablet TAKE ONE TABLET BY MOUTH DAILY AT BEDTIME NEEDED active Not Available Not Available No t Available fluticasone propionate 50 mcg/actuatio n nasal spray,suspen bonnie 2 SPRAY INTRANASALL Y DAILY FOR 30 DAYS active Not Available Not Available No t Available oxycodone 5 mg tablet TAKE ONE TABLET BY MOUTH AT BEDTIME NEEDED active Not Available Not Available No t Available valsartan 40 mg tablet TAKE ONE TABLET BY MOUTH DAILY. active Not Available Not Available No t Available tadalafil 5 mg tablet TAKE 1 TABLET BY MOUTH 45-60 MINUTES PRIOR TO INTERCOURSE active Not Available Not Available Not Available FreeStyle Lite Strips USE TO TEST FOUR TIMES A DAY active Not Available Not Available No t Available fluticasone 232 mcg-salmeter ol 14 mcg/actuatio n breath activated powdr INHALE 1 PUFF TWICE A DAY active Not Available Not Available No t Available Vitals Date Recorded Body height Body mass index (BMI) Body weight Provider Name and Address Organization Details Last Updated DateTime 08/03/2024 180.34 cm 36 kg/m2 746084.83 g Patrick Whyte [place] - [facility] 08/03/2024 09:25:35 Social History Question Answer Notes LastModified by Organizat ion Details LastModified Time Tobacco Smoking Status Former Smoker MAXIMUS VELEZ MD [address] [place] [address], [address], [facility] 08/03/2024 09:37:17 What Is Your Level Of Alcohol Consumption? None Information not available 08/03/2024 When Did You Quit Smoking? 11-15yearssi ncelastcigar ette Information not available 08/03/2024 What Is Your Current Pack Years? 30ormorepack years Information not available 08/03/2024 How Much Tobacco Do You Smoke? No Information not available 08/03/2024 How Many Years Have You Smoked Tobacco? 35 Information not available 08/03/2024 Sex: Unknown Functional Status None recorded. Mental Status None recorded. Family History Nothing Reported. Medical History Condition Response Heart Problems Y COPD Y Past Encounters Encounter ID Performer Location Encounter Start Date Encounter Closed Date Diagnosis/Indication Diagnosis SNOMED-CT Code Diagnosis ICD10 Code [id number] MAXIMUS ONOFRE MD [facility] [address] [address] 08/03/2024 08:50:08 08/03/2024 10:04:18 Chronic obstructive pulmonary disease 68905457 J44.9 Chronic hoarseness 67778 61867 105 R49.0 Chronic no n-infective otitis externa 792805067 H60.61 Deviated nasal septum 12 4350073 J34.2 Health Concerns Section Related Observation LastModified by Organization Detai ls LastModified Time None Recorded Concern Status LastModified by Organization Details LastModified Time None Recorded Advance Directives Directive None Recorded Payers Encounter Date Sequence Insurance Name Policy Number Policy Mills Covered Member ID Mills Member ID Guarantor Name 08/03/2024 1 [employer] - MEDICARE ADVANTAGE PLAN (MEDICARE REPLACEMENT HMO) [id number] Dmitri Darnell [id number] Dmitri Darnell Notes Date Note Type Note Provider Name and Address Organization Details Recorded Time 4 text/html 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 Hx of PND on FP nasal. Hx of globus sensationOccasional irritation/moisture right earRemote hx of tobacco use MAXIMUS VELEZ MD [address] [place] [address], [address], [place] - [facility] 08/03/2024 10:02:07
--- OUTSIDE RECORDS SUMMARY | 2024-10-25 07:23 | XMS_ITS | Continuity of Care Document ---
Author Organization [place] - [facility], [facility] Address [address] [place] [address] Care Team Providers Care Windows Phone Developer Name Role Phone CARINE TODD Primary Care [...] to address the right ear canal moisture. [email or web address] Not available 08/03/2024 09:59:14 Plan of Treatment [...] Details Recorded Time Chronic obstructive pulmonary disease 24898969 Active 2023 MAXIMUS SPRINGER MD 100 [facility], [place], [address], [facility] - [facility] [place] 4 09:59:17 Chronic hoarseness 5147434404476 Active 2023 MAXIMUS SPRINGER MD 100 [facility], E [facility], [place], [address], [facility] - [facility] [place] 4 09:59:22 Deviated nasal septum 229861972 Active 2023 MAXIMUS SPRINGER MD 100 [facility],[place] [address], [place], [address], [facility] [place] 4 09:59:44 Chronic non-infecti ve otitis externa 960990129 Active 2023 MAXIMUS SPRINGER MD [address] [address], [place], [address], [facility] [place] 4 10:00:10 Problem Notes None recorded. Procedures Surgical History Date Name Laterality Status Provider Name and Address Organization Details Recorded Time 08/03/20 24 Fiberoptic Laryngoscopy (Comprehensive) completed MAXIMUS VELEZ MD 100 [facility],[address], [address], [facility] 08/03/2024 09:58:07 placement of stent in cardiac conduit completed MAXIMUS EVLEZ MD 100 [facility],[address], [address], [facility] [place] 08/03/2024 09:37:30 Imaging Results None recorded. Procedure [...] Updated DateTime 08/03/2024 180.34 cm 36 kg/m2 446041.83 g Patrick Pato [place] - [facility] 08/03/2024 09:25:35 Social History Question Answer Notes LastModified by Organizat ion Details LastModified Time Tobacco Smoking Status Former Smoker MAXIMUS VELEZ MD [address] [place] [address], [address], [facility] - [facility] 08/03/2024 09:37:17 What Is Your Level [...] Diagnosis/Indication Diagnosis SNOMED-CT Code Diagnosis ICD10 Code [id number] MAXIMUS ONOFRE MD [facility] [address] [address] 08/03/2024 08:50:08 08/03/2024 10:04:18 Chronic obstructive pulmonary disease 44738095 J44.9 Chronic hoarseness 78967 23954 105 R49.0 Chronic no n-infective otitis externa 659950549 H60.61 Deviated nasal septum 12 1768687 J34.2 Health Concerns Section Related Observation LastModified by Organization Detai ls LastModified Time None Recorded Concern Status LastModified by Organization Details LastModified Time None Recorded Payers Encounter Date Sequence Insurance Name Policy Number Policy Mills Covered Member ID Mills Member ID Guarantor Name 08/03/2024 1 [employer] - MEDICARE ADVANTAGE PLAN (MEDICARE REPLACEMENT HMO) [id number] Dmitri Darnell [id number] Dmitri Darnell Notes Date Note Type Note Provider Name and Address Organization Details Recorded Time 4 text/html 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 Hx of PND on FP nasal. Hx of globus sensationOccasional irritation/moisture right earRemote hx of tobacco use MAXIMUS VELEZ MD [address] [place] [address], [address], [facility] - [facility] 08/03/2024 10:02:07
== END ==
LOC: HO.CARD 10:34
PROVIDERS: PCP Internal Medicine; Visit Provider Internal Medicine Cardiovascular Disease
DX: R06.02 Shortness of breath (principal)
CPT/HCPCS: 93306; Q9957

== ENCOUNTER → 2024-10-20 10:38 | Outpatient (BNV) | payer MEDICARE, SELFPAY | PROVIDERS: PCP Internal Medicine; Visit Provider Internal Medicine Cardiovascular Disease | DX: R06.02 Shortness of breath (principal) | CPT/HCPCS: 93306 ==

== ENCOUNTER → 2024-12-08 10:34 | Outpatient (BNVA) | payer MEDICARE, SELFPAY ==
[2024-12-07 13:46] VITALS: BP 118/64; BP 126/50; BMI 37.2
== END ==
PROVIDERS: PCP Internal Medicine; Visit Provider Nurse Practitioner Family
DX: J44.1 Chronic obstructive pulmonary disease with (acute) exacerbation (principal); J39.8 Other specified diseases of upper respiratory tract
CPT/HCPCS: 94640; 99212

== ENCOUNTER 2025-03-10 11:05 | Outpatient (AMB) | payer MEDICARE, SELFPAY ==
[2024-12-07 13:46] VITALS: BP 118/64; BP 126/50; BMI 37.2
--- OUTSIDE RECORDS SUMMARY | 2025-03-10 11:07 | XMS_ITS | Clinical Summary ---
Author Organization [facility] Address [address] [place] [address] Care Team Providers Care Credit Counselor Name Role Phone Jaxon Coffman MD Primary Care Provider [phone] Allergies No known active allergies Medications lisinopril (PRINIVIL,ZeSTR IL) 10 MG tablet Take 10 mg by mouth daily. Active lovastatin (MEVACOR) 20 MG tablet Take 20 mg by mouth every evening with dinner. Active naproxen sodium (ALEVE) 220 mg tablet Take 220 mg by mouth 2 (two) times a day with meals. Take with meals or food to reduce stomach upset. Active aspirin 81 MG chewable tablet Chew 81 mg daily. Active Social History Tobacco Use Types Packs/Day Years Used Date Smoking Tobacco: Every Day Cigarettes Smokeless Tobacco: Never Alcohol Use Standard Drinks/Week Comments Yes 0 (1 standard drink = 0.6 oz pur e alcohol) 2-3 mixed drinks a day Sex and Gender Information Value Date Recorded Sex Assigned at Not on file Legal Sex Male 8:50 PM EDT Gender Identity Not on file Sexual Orientation Not on file Last Filed Vital Signs Vital Sign Reading Time Taken Comments Blood Pressure 134/71 07/01/2018 11:26 PM EDT Pulse 99 07/01/2018 11:26 PM EDT Temperature 36.2 ??C (97.1 ??F) 07/01/2018 8:56 PM ED T Respiratory Rate 20 07/01/2018 11:26 PM EDT Oxygen Saturation 93% 07/01/2018 11:26 PM EDT Inhaled Oxygen Concentration - - Weight 105 kg (231 lb) 07/01/2018 8:56 PM EDT Height 175.3 cm (5' 9 ) 07/01/2018 8:56 PM EDT Body Mass Index 34.11 07/01/2018 8:56 PM EDT Plan of Treatment Health Maintenance Due Date Last Done Comments DTaP/Tdap/Td Vaccines (1 - Tdap) 1963 Pneumococcal Vaccines 50+ (1 of 1 - PCV) 1994 Zoster (Shingles) Vaccine (1 of 2) 1994 RSV Vaccine 60 years and old er and Patients (1 - 1-dose 75+ series) 2019 Influenza Vaccine 06/15/2024 COVID-19 Vaccine (1 - 2023-2 5 season) 2024 Hepatitis B Vaccines Aged Out No long er eligible based on patient's age to complete this topic Insurance MISC MGD MEDICARE OUT OF NETWORK Care Teams Credit Counselor Relationship Specialty Start Date End Date Jaxon Coffman MD [address] [place] [address] [place] [address] PCP - General 07/01/18
[2025-03-10 11:42] VITALS: BP 110/68; PULSE 87; RESP 16; TEMP 36.9; O2SAT 93; BMI 38.0
--- NOTE | 2025-03-10 11:42 | AM.OFFWIN_ITS ---
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 blood-glucose meter (FreeStyle Lite Meter kit) As Directed fluticasone propion-salmeterol 232-14 mcg/actuation 1 inh inhalation BID 30 days gabapentin 100 mg PO QID@05,09,14,17 90 days lancets (FreeStyle Lancets) Test four times a day or as directed. 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 No injury or fall PFSH Medical History (Updated 03/10/25 @ 12:11 by Basilio Chino MD) COPD (chronic obstructive pulmonary disease) Hoarseness Pulmonary nodules Tracheobronchomalacia Pulmonary nodule COPD (chronic obstructive pulmonary disease) Migrated colon stent Diabetes Hospital-acquired pneumonia Pneumonia Nephrolithiasis Prostate cancer Obesity MAYA (obstructive sleep apnea) Right bundle branch block (RBBB) on electrocardiogram (ECG) Hyperlipidemia HTN (hypertension) Chronic stable angina CAD (coronary artery disease) Surgical History Hx of arthroscopy of knee Hx of lithotripsy Stented coronary artery Hx of cardiac cath Hx laparoscopic cholecystectomy History of basal cell carcinoma (BCC) excision History of carpal tunnel release Hx of hernia repair History of eye surgery Hx of spinal surgery Family History Father CVD (cardiovascular disease) Mother CVD (cardiovascular disease) Brother CVD (cardiovascular disease) Social History Household Members: Spouse Housing: House Are you a primary hospice home care coordinator to a significant other at home: No Do you presently have visiting nurse or other home services: No Alcohol intake: never Patient Tobacco Use Status: Former Tobacco user Tobacco use type: Cigarette Cigarette Packs Per Day: 1 Cigarettes Per Day: 20.0 Years Smoked: 30+ Advance Directives Date on File: 07/17/21 service: No Current occupational status: retired Review of Systems Const Denies chills, Denies fatigue, Denies fever(s), Denies headache(s) and Denies weakness ENT Denies dizziness and Denies headache(s) Card Denies dyspnea Resp Denies cough, Denies dyspnea, Denies wheezing and Denies other ( shortness of breath) Musc Details: See HPI Denies numbness and Denies tingling Neuro Denies dizziness, Denies headache(s), Denies numbness, Denies tingling, Denies paresthesias and Denies weakness Psych Denies anxiety and Denies depression Endo Denies fatigue Aller/Immun Denies wheezing Physical Exam Vital Signs: Last Vital Signs Temp 98.5 F 03/10/25 11:42 Pulse 87 03/10/25 11:42 Resp 16 03/10/25 11:42 BP 110/68 03/10/25 11:42 Pulse Ox 93 03/10/25 11:42 Oxygen Delivery Method Room Air 03/10/25 11:42 BMI result Body Mass Index 38.0 Const General: no acute distress and well developed Nutritional Appearance: well nourished Orientation/consciousness: patient oriented x3 HEENT Head: Yes normocephalic and Yes atraumatic Eyes General: appearance normal, both eyes and all related structures Pupils: Equal, round and reactive pupils present EOM: EOMs intact bilaterally Neck Other: Minimal range of motion at neck Tenderness of cervical paraspinous muscles and trapezius muscles. Normal sensation at hands and lower extremities. Resp Effort & Inspection: normal respiratory effort Auscultation: clear to auscultation bilaterally Cardio Rate: regular rate Rhythm: regular rhythm Heart sounds: S1 normal heart sound present, S2 normal heart sound present, no gallops, no murmurs and no rubs Neuro General: patient oriented x3 and gait normal Cranial nerves: Yes Equal, round and reactive pupils present Psych Affect: normal affect Assessment & Plan Assessment & Plan (1) Cervicalgia: Code(s): M54.2 - Cervicalgia Plan: Cervical muscle spasm and decreased range of motion. Will give him a script for cyclobenzaprine. Risks/benefits discussed; do not operate machinery or drive a car until you know how this will make you feel. Do not mix with other substances which could cause drowsiness or incoordination. Will give him a short course of naproxen. . If any GI problems or GI bleeding. Ice/heat Follow-up with PCP if worsening or not improving. Medications: New cyclobenzaprine 10 mg PO BID 7 days PRN 14 tabs 0RF muscle spasm naproxen 500 mg PO BID 7 days PRN 14 tabs 0RF pain Coding Level of Care Code Est Pt Level 3 (98850) Diagnoses Cervicalgia M54.2
== END 2025-03-10 13:46 | disposition home or self-care (01) ==
LOC: HO.HMCWIC 11:05
PROVIDERS: PCP Internal Medicine; Visit Provider Family Medicine
DX: M54.2 Cervicalgia (principal)

== ENCOUNTER → 2025-03-10 11:05 | Outpatient (BNVA) | payer MEDICARE, SELFPAY ==
[2024-12-07 13:46] VITALS: BP 118/64; BP 126/50; BMI 37.2
== END ==
PROVIDERS: PCP Internal Medicine; Visit Provider Family Medicine
DX: M54.2 Cervicalgia (principal)
CPT/HCPCS: 99212

== ENCOUNTER 2025-03-29 15:32 | Outpatient (AMB) | payer MEDICARE, SELFPAY ==
[2024-12-07 13:46] VITALS: BP 118/64; BP 126/50; BMI 37.2
--- NOTE | 2025-03-29 15:37 | MHC.OFFVIS ---
Vital Signs 03/29/25 15:38 Height 5 ft 10 in Weight 264 lb 8.875 oz BMI 38.0 BP 120/70 Blood Pressure Location Lt brachial Position Sitting Pulse 75 Intake Visit Reasons: 6m follow up/Labs Intake Note: 6 month follow-up with ekg heart doing good Marina Manager Required: No Allergies No Known Allergies Allergy (Verified 04/02/25 15:33) Medication List - Last Reconciled 03/29/25 by Elver Gale MD allopurinol 100 mg PO DAILY amlodipine 5 mg PO DAILY aspirin 81 mg PO DAILY atorvastatin 40 mg PO BEDTIME 90 days blood sugar diagnostic (FreeStyle Lite Strips) Test four times a day or as directed. blood-glucose meter (FreeStyle Lite Meter kit) As Directed fluticasone propion-salmeterol 232-14 mcg/actuation 1 inh inhalation BID 30 days gabapentin 100 mg PO QID@05,09,14,17 90 days lancets (FreeStyle Lancets) Test four times a day or as directed. lorazepam 1 mg PO BEDTIME PRN metformin 250 mg PO BIDWM metoprolol succinate ER 50 mg PO DAILY nitroglycerin 0.4 mg sublingual Q5M PRN valsartan 40 mg PO DAILY HPI Comments Details: Dmitri comes for follow-up. He has increased symptoms of exertional shortness breath associated chest pressure stimulant to avoid he says prior to stenting. He has had pulmonary disease has been stable and there was no increase wheezing. He has seen Pulmonary recently and taking all his medications. Was not able to participate in phase 2 cardiac rehabilitation. Taking all his medications otherwise. Denies any orthopnea, PND, leg edema. No prolonged palpitation irregular heartbeat. [facility] Medical History Diabetes COPD (chronic obstructive pulmonary disease) Hoarseness Pulmonary nodules Tracheobronchomalacia Pulmonary nodule COPD (chronic obstructive pulmonary disease) Migrated colon stent Hospital-acquired pneumonia Pneumonia Nephrolithiasis Prostate cancer Obesity MAYA (obstructive sleep apnea) Right bundle branch block (RBBB) on electrocardiogram (ECG) Hyperlipidemia HTN (hypertension) Chronic stable angina CAD (coronary artery disease) Surgical History Hx of arthroscopy of knee Hx of lithotripsy Stented coronary artery Hx of cardiac cath Hx laparoscopic cholecystectomy History of basal cell carcinoma (BCC) excision History of carpal tunnel release Hx of hernia repair History of eye surgery Hx of spinal surgery Family History Father CVD (cardiovascular disease) Mother CVD (cardiovascular disease) Brother CVD (cardiovascular disease) Social History Household Members: Spouse Housing: House Are you a primary hearing care professional to a significant other at home: No Do you presently have visiting nurse or other home services: No Alcohol intake: never Patient Tobacco Use Status: Former Tobacco user Tobacco use type: Cigarette Cigarette Packs Per Day: 1 Cigarettes Per Day: 20.0 Years Smoked: 30+ e-Cigarette/Vaping Use: Former Use Advance Directives Date on File: 07/17/21 service: No Current occupational status: retired Cognitive needs: No Hearing needs: No Vision needs: Yes (rx glasses) Review of Systems Const Denies chills, Denies fatigue, Denies fever(s), Denies frequent falls, Denies weakness, Denies weight gain and Denies weight loss ENT Denies dizziness Card Denies chest pain, Denies leg edema, Denies lightheadedness, Denies palpitations, Denies dyspnea, Denies dyspnea on exertion, Denies orthopnea and Denies other (loss of consciousness) Resp Denies cough, Denies dyspnea and Denies dyspnea on exertion GI Denies hematochezia and Denies change in stool character Musc Denies abnormal gait, Denies muscle weakness, Denies numbness, Denies radiating pain into limb and Denies tingling Neuro Denies abnormal gait, Denies dizziness, Denies frequent falls, Denies numbness, Denies tingling and Denies weakness Endo Denies fatigue and Denies palpitations Physical Exam Vital Signs: Last Vital Signs Pulse 75 03/29/25 15:38 BP 120/70 03/29/25 15:38 BMI result Body Mass Index 38.0 Const General: cooperative, comfortable, no acute distress, alert and awake Nutritional Appearance: obese Orientation/consciousness: patient oriented x3 Limitations: no limitations Neck Neck: Yes trachea midline, Yes supple and Yes no JVD Chest Chest palpation & inspection: normal inspection of the chest Resp Effort & Inspection: normal respiratory effort Auscultation: no rhonchi, wheezes (Occasional) and diminished lung sounds Cardio Jugular venous distension: no JVD Palpation: normal PMI Rate: regular rate Rhythm: regular rhythm Heart sounds: S1 normal heart sound present and S2 normal heart sound present GI Auscultation: normal bowel sounds Skin General skin exam: no rashes or lesions noted Neuro General: patient oriented x3 and no focal motor deficits Extrem General: Yes no clubbing, cyanosis or edema Psych Appearance: grossly normal Office Procedures EKG Details: EKG shows normal sinus rhythm with right bundle-branch block unchanged with left axis deviation [id number], Complete Assessment & Plan Assessment & Plan (1) CAD (coronary artery disease): Comment: s/p PCI x 2 stents 04/05 Code(s): I25.10 - Atherosclerotic heart disease of [place] coronary artery without angina pectoris Category: Medical Qualifiers: Coronary Disease-Associated Artery/Lesion type: unspecified vessel or lesion type [place] vs. transplanted heart: unspecified whether [place] or transplanted heart Associated angina: with other forms of angina Qualified Code(s): I25.118 - Atherosclerotic heart disease of [place] coronary artery with other forms of angina pectoris Plan: Coronary artery disease with increasing symptoms exertional shortness and he says now chest heaviness/pressure-like before he had his stenting. He is concerned about his coronary disease. Currently on good medical therapy including metoprolol as well as amlodipine therapy as an antianginal agent. Currently having increasing symptoms recommend cardiac catheterization to evaluate for coronary anatomy and stent patency. If he has significant coronary will require revascularization. This was discussed with him. Currently on good high-intensity statin therapy with ezetimibe with well optimized LDL. Continue aspirin therapy. Further treatment based on finding of cardiac catheterization. Discussed with him risks, benefits, alternatives to cardiac catheterization. He understands and agrees. (2) HTN (hypertension): Code(s): I10 - Essential (primary) hypertension Category: Medical Plan: Hypertension which is currently well optimized advised to monitor blood pressure at home maintain a log. Goal blood pressure less than 130/84. Low-salt diet was discussed. Stress mitigation strategies was discussed. Importance of continued therapy was discussed and he understands. Continue participate in weight loss program. Will follow up in the clinic in 4-6 weeks time, sooner p.r.n.. Thank you for allowing me to partake in his care Orders: Orders Basic Metabolic Panel Today I25.118 - Atherosclerotic heart disease of [place] coronary artery with other forms of angina pectoris Complete Blood Count no Diff Today I25.118 - Atherosclerotic heart disease of [place] coronary artery with other forms of angina pectoris Cardiac Cath LT w PCI 2 Weeks I20.89 - Other forms of angina pectoris, I25.118 - Atherosclerotic heart disease of [place] coronary artery with other forms of angina pectoris Prothrombin Time INR Today I25.118 - Atherosclerotic heart disease of [place] coronary artery with other forms of angina pectoris Coding Level of Care Code Est Pt Level 4 (57009) Complex EM visit Add On G2211 Diagnoses Coronary artery disease with other form of angina pectoris, unspecified vessel or lesion type, unspecified whether [place] or transplanted heart I25.118 Coronary Disease-Associated Artery/Lesion type: unspecified vessel or lesion type [place] vs. transplanted heart: unspecified whether [place] or transplanted heart Associated angina: with other forms of angina HTN (hypertension) I10 CPT Codes EKG - CPT: 99353-[id number], Complete ([id number])
[2025-03-29 15:38] VITALS: BP 120/70; PULSE 75; BMI 38.0
--- OUTSIDE RECORDS SUMMARY | 2025-03-29 15:56 | XMS_ITS | Continuity of Care Document ---
Author Organization [facility] Address [address] [place] [id number]- Care Team Providers Care International Travel Consultant Name Role Phone Jaxon Coffman MD Primary Care Physician [id number] Date(s): 11/25/24 - 03/25/25 [facility] [address] [place] [id number]- Attending Physician: Fili Lopez MD Admitting Physician: Fili Lopez MD Referring Physician: Jaxon Coffman MD Encounter Type: Pre-OutPatient One Time Allergies, Adverse Reactions, Alerts No Known Allergies Immunizations Given and Recorded Vaccine Date Status Refusal Reason zoster vaccine, inactivated 12/12/21 Recorded SARS-CoV-2 (COVID-19) mRNA BNT-162b2 vac 08/29/21 Recorded SARS-CoV-2 (COVID-19) mRNA BNT-162b2 vac 01/08/21 Given SARS-CoV-2 (COVID-19) mRNA BNT-162b2 vac 12/18/20 Recorded pneumococcal 13-valent vaccine 10/31/19 Recorded pneumococcal 23-valent vaccine 10/23/18 Recorded tetanus-diphtheria toxoids (Td) 10/27/12 Recorded influenza virus vaccine, inactivated 07/30/10 Edy rded Medications allopurinol 100 mg oral tablet 100 mg, 1, tablet, By Mouth, Daily, # 30 tablet, Refills 0, Maintenance, 01/22/22 1:54:00 PM EST, Partial fill upon patient request if the prescription is for a schedule II opioid drug. Start Date: 01/22/22 Status: Ordered Quantity: 30.0 Unit: tablet Repeat number: 1 amLODIPine 5 mg oral tablet 5 mg, 1, tablet, By Mouth, Daily, # 90 tablet, Refills 3, Tot. Refills 3, Maintenance, 05/31/20 2:15:00 PM EDT, [id number], 180, cm, 05/31/20 8:53:00EDT, Height Start Date: 05/31/20 Status: Ordered Quantity: 90.0 Unit: tablet Repeat number: 4 aspirin 81 mg oral delayed release tablet 81 mg, 1, tablet, By Mouth, Daily, # 90 tablet, Refills 4, Tot. Refills 4, Maintenance, 03/09/22 10:42:00 AM EDT, Route to Pharmacy Electronically, [facility], Partial fill upon patient request if the prescription is for a schedule II opioid drug., 180, cm, 03/09/22 7:25:00 EDT, Height, 115.3, kg, 03/09/22 7:25:00 EDT, Dry Weight Start Date: 03/09/22 Stop Date: 06/02/23 Status: Ordered Quantity: 90.0 Unit: tablet Repeat number: 5 atorvastatin 40 mg oral tablet TAKE ONE TABLET BY MOUTH EVERY EVENING Start Date: 02/23/24 Status: Ordered Repeat number: 1 fluticasone-salmeterol 232 mcg-14 mcg/inh inhalation powder 0 Refills, Maintenance, 02/23/24 7:51:00 AM EDT, Partial fill upon patient request if the prescription is for a schedule II opioid drug. Start Date: 02/23/24 Status: Ordered Repeat number: 1 metFORMIN 500 mg oral tablet TAKE ONE-HALF TABLET BY MOUTH TWICE A DAY Start Date: 02/23/24 Status: Ordered Repeat number: 1 Metoprolol Succinate ER 50 mg oral tablet, extended release 1 tablet = 50 mg, By Mouth, 2 times a day, # 30 tablet, 0 Refills, Maintenance, 05/31/20 2:14:00 PM EDT, ER Tablet Start Date: 05/31/20 Status: Ordered Quantity: 30.0 Unit: tablet Repeat number: 1 nitroglycerin 0.3 mg sublingual tablet 1 tablet = 0.3 mg, Sublingual, Every 5 minutes, PRN as needed for chest pain, not to exceed 3 doses/15 min--if pain persists, seek medical attention, # 100 tablet, 0 Refills, Maintenance, 01/22/22 1:55:00 PM EST, Tablet, Partial fill upon patient request if the prescription is for a schedule II opioid drug. Start Date: 01/22/22 Status: Ordered Quantity: 100.0 Unit: tablet Repeat number: 1 valsartan 40 mg oral tablet Refills 0, Maintenance, 02/23/24 7:51:00 AM EDT, Partial fill upon patient request if the prescription is for a schedule II opioid drug. Start Date: 02/23/24 Status: Ordered Repeat number: 1 Social History Social History Type Response Smoking Status Former smoker, quit more than 30 days ago entered on: 02/23/24 Sex Sex Representation Male (finding) Implantable Device List Procedure Provider Procedure Date Device Type Site Cystourethroscopy with Insertion of Kate Andrez Cruz MD 10/15/23 Unknown Perineum Device Identifier Serial Number Lot or Batch Number Manufacturing Date Expiration Date Distinct Identification Code MRI Safety Implantable Status Assigning Authority Unknown Unknown [id number] Unknown 07/05/26 Unknown Unknown Active Unk nown Patient Care team information Care Team Personnel Name: Jaxon Coffman MD Position: [facility] Outreach Member Role: PCP Address: [address] [place] [address] [place] [address]- Telecom: Name: Bailey Xie RN Position: [facility] RN Member Role: Primary Care Nurse Care Team Related Persons Name: BANDAR MCKEON Name: ROSAURA ALAN Name: ROSAURA HARRY Insurance Providers Guarantor name: ARLEEN [facility] Information #: 1 Payer: [facility] MEDICARE ADV HMO Member Number: [id number] Policy Number: NA Group Number: [id number] Health Plan Information #: 2 Payer: [facility] MEDICARE ADV HMO Member Number: [id number] Policy Number: NA Group Number: [id number]
--- OUTSIDE RECORDS SUMMARY | 2025-03-29 15:56 | XMS_ITS | Clinical Summary ---
Author Organization [facility] Address [address] [place] [address] Care Team Providers Care Ethnographer Name Role Phone Jaxon Coffman MD Primary Care Provider [phone] Allergies No known active allergies Medications lisinopril [...] Patients (1 - 1-dose 75+ series) 2019 COVID-19 Vaccine (1 - 2023-2 5 season) 2024 Influenza Vaccine 06/15/2025 Hepatitis B Vaccines Aged Out No long er eligible based on patient's age to complete this topic Insurance MISC M[employer] MEDICARE OUT OF NETWORK Care Teams Ethnographer Relationship Specialty Start Date End Date Jaxon Coffman MD [address] [place] [address] [place] [address] PCP - General 07/01/18
--- OUTSIDE RECORDS SUMMARY | 2025-03-29 15:56 | XMS_ITS | Data Portability ---
Author Organization [place] - [facility], Allergy Address [address] [address] Care Team Providers Care Perennial House Manager Name Role Phone CARINE TODD Primary Care Provider CARINE TODD Referring Provider [phone] NANY STEELE Referring Provider Assessment Encounter Date Assessment Date [...] to address the right ear canal moisture. [email or web address] Not available 08/03/2024 09:59:14 Plan of Treatment Reminders Order Date Submit Date Provider Last Modified By Organization Details Last Modified Time Details Appointments Hearing Test 2024 09:30A M Hearing Test Not available Not available Not available Establish ed 15 2024 09:45A M WENDY MARY PA-C Not available Not available Not available Lab None recorded. Referral None recorded. Procedures None recorded. Surgeries None recorded. Imaging None recorded. Medication Orders clotrimaz ole-betam ethasone 1 %-0.05 % topical cream 2024 025 [email or web address], [address] [facility], [place], [address], 02/07/2025 08:49:01 Patient TargetsNo targets recorded. Patient InstructionsNo instructions recorded. Reason for Referral None Reported. Problems Name Problem SNOMED Code Status Onset Date Resolution Date Notes Provider Name and Address Organization Details Recorded Time Chronic obstructive pulmonary disease 19836218 Active 2023 MAXIMUS SPRINGER MD [address], [facility] [place], [address], [facility] - [facility] [place] 4 09:59:17 Chronic hoarseness 6510361767510 Active 2023 MAXIMUS SPRINGER MD [address] [facility], [place], [address], [facility] - [facility] [place] 4 09:59:22 Deviated nasal septum 742218290 Active 2023 MAXIMUS SPRINGER MD [address] [facility], [place], [address], [facility] - [facility] [place] 4 09:59:44 Chronic non-infecti ve otitis externa 850436352 Active 2023 MAXIMUS SPRINGER MD [address] [facility], [place], [address], [facility] - [facility] [place] 4 10:00:10 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 Procedures Surgical History Date Name Laterality Status Provider Name and Address Organization Details Recorded Time 02/08/20 25 Fiberoptic Laryngoscopy (Comprehensive) completed MAXIMUS VELEZ MD [address] [facility] [address], [place], [address], [place] - [facility] 02/07/2025 08:47:11 08/03/20 24 Fiberoptic Laryngoscopy (Comprehensive) completed MAXIMUS VELEZ MD 100 [facility],[place] [address], [place], [address], [facility] - [facility] 08/03/2024 09:58:07 placement of stent in cardiac conduit completed MAXIMUS VELEZ MD [address] [facility] [address], [place], [address], [facility] - [facility] 08/03/2024 09:37:30 Imaging Results None recorded. Procedure Notes None recorded. Medical Equipment None Reported. Allergies No known drug allergies Medications Name Sig Start Date Stop Date Status Note LastModified by Organization Details LastModified Time freestyle lite test strips strp active Not Available Not Available Not Available freestyle lancets misc active Not Available Not Available Not Available atorvastati n 40 mg tablet TAKE ONE TABLET BY MOUTH DAILY AT BEDTIME active Not Available Not Available No t Available metformin 500 mg tablet TAKE ONE-HALF TABLET BY MOUTH TWICE A DAY active Not Available Not Available No t Available prednisone 10 mg tablet TAKE 4 TABLETS/D AY BY MOUTH FOR 3 DAYS, THEN 3 TABLETS/D AY FOR 2 DAYS, THEN 2 TABLETS/D AY FOR 2 DAYS, THEN 1 TABLET/DA Y FOR 2 DAYS. 02/07 completed Not Available Not Available Not Available doxycycline hyclate 100 mg capsule TAKE ONE CAPSULE BY MOUTH TWICE A DAY 02/07 completed Not Available Not Available Not Available ketoconazol e 2 % shampoo SHAMPOO TWICE WEEKLY TO RASH. MIX IN HEAD AND SHOULDERS OR OTHER ANTIFUNGA L SHAMPOOS FOR BEST RESULTS. active Not Available Not Available No t Available azithromyci n 250 mg tablet TAKE 1 TABLET BY MOUTH 3 TIMES A WEEK FOR 28 DAYS.; INSTR: TAKE 1 TABLET ON WEDNESDAY/ DN/). 02/07 completed Not Available Not Available Not Available nitroglycer in 0.[address] by sublingua l route. active Not Available Not Available No t Available metoprolol succinate ER 50 mg tablet,exte nded release 24 hr TAKE 1 TABLET BY MOUTH DAILY active Not Available Not Available No t Available FreeStyle Lancets 28 gauge USE TO TEST 4 TIMES A DAY active Not Available Not Available No t Available prednisone 20 mg tablet TAKE 2 TABLETS 40MG) BY MOUTH DAILY 02/07 completed Not Available Not Available Not Available amlodipine 5 mg tablet TAKE 1 [...] CAPSULE BY MOUTH FOUR TIMES A DAY 02/07 completed Not Available Not Available Not Available clotrimazol e-betametha sone 1 %-0.05 % topical cream APPLY TO AFFECTED AND SURROUNDI NG AREAS OF SKIN TWO TIMES A DAY FOR 2 WEEKS active Not Available Not Available No t Available codeine 10 mg-guaifene sin 100 mg/5 mL oral liquid TAKE 10 ML. EVERY 6 HOURS IF NEEDED FOR COUGH FOR 10 DAYS. 02/07 completed Not Available Not Available Not Available gabapentin 100 mg capsule TAKE ONE CAPSULE BY MOUTH FOUR TIMES A DAY active Not Available Not Available No t Available lorazepam 1 mg tablet TAKE ONE TABLET BY MOUTH AT BEDTIME NEEDED. active Not Available Not Available No t Available cefuroxime axetil 500 mg tablet TAKE ONE TABLET BY MOUTH TWICE A DAY 02/07 completed Not Available Not Available Not Available ketoconazol e 2 % topical cream APPLY TO THE AFFECTED AREA(S) BY TOPICAL ROUTE ONCE DAILY active Not Available Not Available No t Available fluticasone propionate 50 mcg/actuati on nasal spray,suspe nsion 2 SPRAY INTRANASA LLY DAILY FOR 30 DAYS 02/07 completed Not Available Not Available Not Available oxycodone 5 mg tablet TAKE ONE TABLET BY MOUTH AT BEDTIME NEEDED 02/07 completed Not Available Not Available Not Available valsartan 40 mg tablet TAKE ONE TABLET BY MOUTH DAILY. active Not Available Not Available No t Available tadalafil 5 mg tablet TAKE 1 TABLET BY MOUTH 45-60 MINUTES PRIOR TO INTERCOUR SE 02/07 completed Not Available Not Available Not Available FreeStyle Lite Strips USE TO TEST BLOOD SUGAR FOUR TIMES A DAY active Not Available Not Available No t Available Procto-Med HC 2.5 % topical cream perineal applicator APPLY 1 APPLICATI ON RECTALLY 2 TIMES A DAY. 02/07 completed Not Available Not Available Not Available AirDuo RespiClick 232 mcg-14 mcg/actuati on breath activated Inhale 1 puff twice a day by inhalatio n route. active Not Available Not Available No t Available Vitals Date Recorded Body height Body mass index (BMI) Body weight Provider Name and Address Organization Details Last Updated DateTime 02/07/2025 175.26 cm 38.4 kg/m2 267032.02 g Melanie Mamie [place] - [facility] 02/07/2025 08:37:05 Date Recorded Body height Body mass index (BMI) Body weight Provider Name and Address Organization Details Last Updated DateTime 08/03/2024 180.34 cm 36 kg/m2 457287.83 g Patrick Whyte [place] - [facility] 08/03/2024 09:25:35 Social History Question Answer Notes LastModified by Organizat ion Details LastModified Time Tobacco Smoking Status Former Smoker MAXIMUS VELEZ MD [address] [place] [address], [address], [facility] - [facility] 08/03/2024 09:37:17 When Did You Quit Smoking? 11-15yearssi ncelastcigar ette Information not available 08/03/2024 What Is Your Current Pack Years? 30ormorepack years Information not available 08/03/2024 How Much Tobacco Do You Smoke? No Information not available 08/03/2024 How Many Years Have You Smoked Tobacco? 35 Information not available 08/03/2024 Sex: Unknown Functional Status Question Answer Note LastModified by Organization D etails LastModified Time What is your level of alcohol consumption? None Information not available 08/03/2024 Mental Status None recorded. Family History Nothing Reported. Medical History Condition Response Heart Problems Y COPD Y Past Encounters Encounter ID Performer Location Encounter Start Date Encounter Closed Date Diagnosis/Indication Diagnosis SNOMED-CT Code Diagnosis ICD10 Code Diagnosis Note [id number] MAIXMUS ONOFRE MD [facility] [address] [address] 08/03/2024 08:50:08 08/03/2024 10:04:18 Chronic obstructive pulmonary disease 80214094 J44.9 Chronic hoarseness 75445 39460 105 R49.0 Chronic no n-infective otitis externa 379674366 H60.61 Deviated nasal septum 12 6560066 J34.2 [id number] MAXIMUS ONOFRE MD [facility] [address] [place] [address] 02/07/2025 08:29:00 02/07/2025 08:53:48 Eczema of external auditory canal 25295252 H60.549 Chronic hoarseness 40664 08807 105 R49.0 Chronic ob structive pulmonary disease 62999010 J44.9 Health Concerns Section Related Observation LastModified by Organization Detai ls LastModified Time None Recorded Concern Status LastModified by Organization Details LastModified Time None Recorded Advance Directives Directive None Recorded Payers Insurance Date Sequence Insurance Name Policy Number Policy Mills Covered Member ID Mills Member ID Guarantor Name 02/05/2025 1 [employer] - MEDICARE ADVANTAGE PLAN (MEDICARE REPLACEMENT HMO) [id number] Dmitri F F [employer] [id number] Dmitri F Mann Notes Date Note Type Note Provider Name and Address Organization Details Recorded Time 4 text/html Referred by crushing machine operator for hoarseness. Hx of PND on FP nasal. Hx of globus sensationOccasional irritation/moisture right earRemote hx of tobacco use MAXIMUS VELEZ MD [address], [address], [place] - [facility] 08/03/2024 10:02:07 5 text/html Patient notes that his voice is back to his raspy baseline. 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 He still has some discharge from the ears in the morning. He has had itching of the conchal bowls as well as the postauricular area. Continues on his inhalers for COPD but otherwise has been doing well MAXIMUS VELEZ MD 100 [facility],[place] [address], [place], [address], [facility] - [facility] 02/07/2025 08:50:05
== END 2025-03-29 16:17 | disposition home or self-care (01) ==
LOC: HO.HCS 15:33
PROVIDERS: PCP Internal Medicine; Visit Provider Internal Medicine Cardiovascular Disease
DX: I25.118 Atherosclerotic heart disease of native coronary artery with other forms of angina pectoris (principal); I10 Essential (primary) hypertension
CPT/HCPCS: 93010; 99214; G2211

== ENCOUNTER → 2025-03-29 15:32 | Outpatient (BNVA) | payer MEDICARE, SELFPAY ==
[2024-12-07 13:46] VITALS: BP 118/64; BP 126/50; BMI 37.2
== END ==
PROVIDERS: PCP Internal Medicine; Visit Provider Internal Medicine Cardiovascular Disease
DX: I25.118 Atherosclerotic heart disease of native coronary artery with other forms of angina pectoris (principal); I10 Essential (primary) hypertension; Z87.891 Personal history of nicotine dependence
CPT/HCPCS: 93005; 99212

== ENCOUNTER 2025-04-02 14:33 | Outpatient (AMB) | payer MEDICARE, SELFPAY ==
[2024-12-07 13:46] VITALS: BP 118/64; BP 126/50; BMI 37.2
[2025-04-02 13:12] VITALS: BP 132/70; PULSE 75; TEMP 36.2; O2SAT 95; BMI 37.9
--- NOTE | 2025-04-02 13:12 | A.OFFPC_ITS ---
Vital Signs 04/02/25 13:12 Height 5 ft 10 in Intake Visit Reasons: Routine Private Duty Nurse Required: No Accompanied by: Self / Same As Patient Allergies No Known Allergies Allergy (Verified 04/02/25 13:12) Tobacco use date assessed: 04/02/25 Fall risk assessment: No Falls in past year Last assessed Fall Risk: 04/02/25 Dental Screening Dental Screen Date: 04/02/25 Did you have a dental visit in the last 12 months?: Yes Did you have a dental problem in the last 6 months where you did not have access to dental care?: No PFSH Medical History COPD (chronic obstructive pulmonary disease) Hoarseness Pulmonary nodules Tracheobronchomalacia Pulmonary nodule COPD (chronic obstructive pulmonary disease) Migrated colon stent Diabetes Hospital-acquired pneumonia Pneumonia Nephrolithiasis Prostate cancer Obesity MAYA (obstructive sleep apnea) Right bundle branch block (RBBB) on electrocardiogram (ECG) Hyperlipidemia HTN (hypertension) Chronic stable angina CAD (coronary artery disease) Surgical History Hx of arthroscopy of knee Hx of lithotripsy Stented coronary artery Hx of cardiac cath Hx laparoscopic cholecystectomy History of basal cell carcinoma (BCC) excision History of carpal tunnel release Hx of hernia repair History of eye surgery Hx of spinal surgery Family History Father CVD (cardiovascular disease) Mother CVD (cardiovascular disease) Brother CVD (cardiovascular disease) Social History Household Members: Spouse Housing: House Are you a primary manager critical care unit to a significant other at home: No Do you presently have visiting nurse or other home services: No Alcohol intake: never Patient Tobacco Use Status: Former Tobacco user Tobacco use type: Cigarette Cigarette Packs Per Day: 1 Cigarettes Per Day: 20.0 Years Smoked: 30+ Advance Directives Date on File: 07/17/21 service: No Current occupational status: retired Questionnaire PHQ-9 Over the last 2 weeks, how often have you been bothered by any of the following problems? 1. Little interest or pleasure in doing things: not at all 2. Feeling down, depressed, or hopeless: not at all 3. Trouble falling or staying asleep, or sleeping too much: not at all 4. Feeling tired or having little energy: not at all 5. Poor appetite or overeating: not at all 6. Feeling bad about yourself - or that you are a failure or have let yourself or your family down: not at all 7. Trouble concentrating on things, such as reading the newspaper or watching television: not at all 8. Moving or speaking so slowly that other people could have noticed. Or the opposite - being so fidgety or restless that you have been moving around a lot more than usual: not at all 9. Thoughts that you would be better off or of hurting yourself in some way: not at all Total score: 0 Source: Developed by Drs. Dmitri Martin, Aleja Oglesby, Patrick Long and colleagues, with an educational tim from [employer]. Thrive Questionnaire Date Thrive assessed: 04/02/25 I am a: Patient Within the past 12 months, did the food you bought not last and you didn't have the money to get more?: Never true Within the past 12 months, did you worry whether your food would run out before you got money to buy more?: Never true Do you have trouble paying for medicines?: No Do you have trouble getting transportation to medical appointments?: No Do you have trouble paying your heating and electricity bill?: No Do you have trouble taking care of your child, family member or friend?: No Do you have trouble with day-to-day activities such as bathing, preparing meals, shopping, managing finances, etc.?: No Are you currently unemployed and looking for a job?: No Are you interested in more education?: No THRIVE Score: 0 AUDIT C Alcohol Use Questionnaire (AUDIT-C) 1. How often do you have a drink containing alcohol?: Never 3. How often do you have six or more drinks on one occasion?: Never Total Score: 0 TALIA-7 AMB Questionnaire TALIA-7 Date TALIA - 7 assessed: 04/02/25 Feeling nervous, anxious, or on edge: 0 = Not at all Not being able to stop or control worryin = Not at all Worrying too much about different things: 0 = Not at all Trouble relaxin = Not at all Being so restless that it is hard to sit still: 0 = Not at all Becoming easily annoyed or irritable: 0 = Not at all Feeling afraid as if something awful might happen: 0 = Not at all Total TALIA-7 score (0-4 normal; 5-9 mild; 10-14 moderate; 15-21 severe): 0 Source: Developed by Drs. Dmitri Martin, Aleja Oglesby, Patrick Long and colleagues, with an educational tim from [employer]. Physical exam (Primary Care) Tobacco/Smoking Status: Tobacco use Status Patient Tobacco Use Status Former Tobacco user 12/07/24 13:46 Tobacco use type Cigarette 12/07/24 13:46 Thrive Assessment: Date of Thrive Assessment Date Thrive assessed 08/05/24 12/07/24 13:46 Coding
--- OUTSIDE RECORDS SUMMARY | 2025-04-02 14:36 | XMS_ITS | Clinical Summary ---
Author Organization [facility] Address [address] [place] [address] Care Team Providers Care Postulant Name Role Phone Jaxon Coffman MD Primary Care Provider [phone] Allergies No known active allergies Medications lisinopril [...] MGD MEDICARE OUT OF NETWORK Care Teams Postulant Relationship Specialty Start Date End Date Jaxon Coffman MD [address] [place] [address] [place] [address] PCP - General 07/01/18
--- NOTE | 2025-04-02 14:40 | A.OFFPC_ITS ---
Vital Signs 04/02/25 13:12 Height 5 ft 10 in Weight 264 lb BMI 37.9 BP 132/70 Blood Pressure Location Lt brachial Position Sitting Pulse 75 Pulse Source Pulse Oximeter Temp 97.2 F Temp Source Axillary Pulse Oximetry (%) 95 Oxygen Delivery Method Room Air Intake Visit Reasons: Routine Allergies No Known Allergies Allergy (Verified 04/02/25 15:33) Medication List - Last Reconciled 04/02/25 by Leoncio Low MD allopurinol 100 mg PO DAILY amlodipine 5 mg PO DAILY aspirin 81 mg PO DAILY atorvastatin 40 mg PO BEDTIME 90 days blood sugar diagnostic (FreeStyle Lite Strips) Test four times a day or as directed. blood sugar diagnostic (FreeStyle Lite Strips) As directed blood-glucose meter (FreeStyle Lite Meter kit) As Directed flash glucose scanning reader (FreeStyle Jacinta 14 Day Creola) As directed fluticasone propion-salmeterol 232-14 mcg/actuation 1 inh inhalation BID 30 days gabapentin 100 mg PO QID@05,09,14,17 90 days lancets (FreeStyle Lancets) Test four times a day or as directed. lancets (FreeStyle Lancets) As directed lorazepam mg PO BID PRN mecobalamin (vitamin B12) 1,000 mcg PO DAILY metformin 250 mg PO BIDWM metoprolol succinate ER 50 mg PO DAILY nitroglycerin 0.4 mg sublingual Q5M PRN valsartan 40 mg PO DAILY Tobacco use date assessed: 04/02/25 Fall risk assessment: No Falls in past year Last assessed Fall Risk: 04/02/25 Dental Screening Dental Screen Date: 04/02/25 Did you have a dental visit in the last 12 months?: Yes Did you have a dental problem in the last 6 months where you did not have access to dental care?: No [facility] Medical History (Updated 04/02/25 @ 15:36 by Leoncio Low MD) Diabetes COPD (chronic obstructive pulmonary disease) Hoarseness Pulmonary nodules Tracheobronchomalacia Pulmonary nodule COPD (chronic obstructive pulmonary disease) Migrated colon stent Hospital-acquired pneumonia Pneumonia Nephrolithiasis Prostate cancer Obesity MAYA (obstructive sleep apnea) Right bundle branch block (RBBB) on electrocardiogram (ECG) Hyperlipidemia HTN (hypertension) Chronic stable angina CAD (coronary artery disease) Surgical History Hx of arthroscopy of knee Hx of lithotripsy Stented coronary artery Hx of cardiac cath Hx laparoscopic cholecystectomy History of basal cell carcinoma (BCC) excision History of carpal tunnel release Hx of hernia repair History of eye surgery Hx of spinal surgery Family History (Updated 04/02/25 @ 14:48 by Rhianna Schuster MA) Father CVD (cardiovascular disease) Mother CVD (cardiovascular disease) Brother CVD (cardiovascular disease) Social History Household Members: Spouse Housing: House Are you a primary child adolescent care to a significant other at home: No Do you presently have visiting nurse or other home services: No Alcohol intake: never Patient Tobacco Use Status: Former Tobacco user Tobacco use type: Cigarette Cigarette Packs Per Day: 1 Cigarettes Per Day: 20.0 Years Smoked: 30+ e-Cigarette/Vaping Use: Former Use Advance Directives Date on File: 07/17/21 service: No Current occupational status: retired Cognitive needs: No Hearing needs: No Vision needs: Yes (rx glasses) Questionnaire PHQ-9 Over the last 2 weeks, how often have you been bothered by any of the following problems? 1. Little interest or pleasure in doing things: not at all 2. Feeling down, depressed, or hopeless: not at all 3. Trouble falling or staying asleep, or sleeping too much: not at all 4. Feeling tired or having little energy: not at all 5. Poor appetite or overeating: not at all 6. Feeling bad about yourself - or that you are a failure or have let yourself or your family down: not at all 7. Trouble concentrating on things, such as reading the newspaper or watching television: not at all 8. Moving or speaking so slowly that other people could have noticed. Or the opposite - being so fidgety or restless that you have been moving around a lot more than usual: not at all 9. Thoughts that you would be better off or of hurting yourself in some way: not at all Total score: 0 Source: Developed by Drs. Dmitri Martin, Aleja Oglesby, Patrick Long and colleagues, with an educational tim from [employer]. Thrive Questionnaire Date Thrive assessed: 04/02/25 I am a: Patient Within the past 12 months, did the food you bought not last and you didn't have the money to get more?: Never true Within the past 12 months, did you worry whether your food would run out before you got money to buy more?: Never true Do you have trouble paying for medicines?: No Do you have trouble getting transportation to medical appointments?: No Do you have trouble paying your heating and electricity bill?: No Do you have trouble taking care of your child, family member or friend?: No Do you have trouble with day-to-day activities such as bathing, preparing meals, shopping, managing finances, etc.?: No Are you currently unemployed and looking for a job?: No Are you interested in more education?: No THRIVE Score: 0 AUDIT C Alcohol Use Questionnaire (AUDIT-C) 1. How often do you have a drink containing alcohol?: Monthly or less 2. How many drinks containing alcohol do you have on a typical day when you are drinking?: 1 or 2 3. How often do you have six or more drinks on one occasion?: Less than monthly Total Score: 2 TALIA-7 AMB Questionnaire TALIA-7 Date TALIA - 7 assessed: 04/02/25 Feeling nervous, anxious, or on edge: 0 = Not at all Not being able to stop or control worryin = Not at all Worrying too much about different things: 0 = Not at all Trouble relaxin = Not at all Being so restless that it is hard to sit still: 0 = Not at all Becoming easily annoyed or irritable: 0 = Not at all Feeling afraid as if something awful might happen: 0 = Not at all Total TALIA-7 score (0-4 normal; 5-9 mild; 10-14 moderate; 15-21 severe): 0 Source: Developed by Drs. Dmitri Martin, Aleja Oglesby, Patrick Long and colleagues, with an educational tim from [employer]. Physical exam (Primary Care) Vital Signs: Last Vital Signs Temp 97.2 F 04/02/25 13:12 Pulse 75 04/02/25 13:12 BP 132/70 04/02/25 13:12 Pulse Ox 95 04/02/25 13:12 Oxygen Delivery Method Room Air 04/02/25 13:12 BMI result Body Mass Index 37.9 Tobacco/Smoking Status: Tobacco use Status Tobacco use date assessed 04/02/25 04/02/25 14:49 Patient Tobacco Use Status Former Tobacco user 04/02/25 14:49 Tobacco use type Cigarette 04/02/25 14:49 e-Cigarette/Vaping Use Former Use 04/02/25 14:49 PHQ-9: PHQ-9 Score PHQ-9: Total score 0 04/02/25 14:49 Thrive Assessment: Date of Thrive Assessment Date Thrive assessed 04/02/25 04/02/25 14:49 Coding Level of Care Code New Pt Level 4 (65675) Complex EM visit Add On G2211 Diagnoses Diabetes E11.9 Assessment & Plan Assessment & Plan (1) Diabetes: Code(s): E11.9 - Type 2 diabetes mellitus without complications Category: Medical Plan: Metformin dosage to be adjusted after bw results are available. Neurontin dosage increased to 300 mg thrice daily. Continue lorazepam for now. Will consider Seroquel after the Cath procedure is complete. Plan History of Present Illness The patient is an 79-year-old male presenting with medication management and neuropathy concerns. He experienced difficulties obtaining his amlodipine prescription but notes normal glucose readings with occasional dietary adjustments since a diabetes mellitus diagnosis. Neuropathic pain, manifesting as a persistent burning sensation in the feet, has been inadequately managed with 100 mg gabapentin. Anxiety and insomnia issues, treated sporadically with lorazepam, affect his sleep despite multiple studies. His medical history includes treated prostate cancer and knee osteoarthritis following meniscus surgery. 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 - Sleep habits disrupted, relying on naps; multiple sleep studies without conclusive results. Review of Systems - Cardiovascular: Reports hypertension. - Endocrine: Reports diabetes mellitus, last glucose reading was 134 mg/dL postprandial. - Neurological: Reports burning feet sensation due to peripheral neuropathy. - Psychiatric: Reports anxiety, uses lorazepam intermittently; reports insomnia, frequent nocturnal awakenings. - Genitourinary: History of prostate cancer. - Musculoskeletal: Reports knee joint pain and difficulty rising from seated positions. Physical Exam General: Cooperative and healthy appearing Nutritional Appearance: Well nourished Orientation/consciousness: Patient oriented x3 Limitations: No limitations Head: Normal to inspection General: Appearance normal, both eyes and all related structures Neck: Normal visual inspection Chest: Normal palpation of entire chest wall Respiratory: N ormal respiratory effort Neurology: Patient oriented x3, reports neuropathy with burning feet 12 hours a day, taking gabapentin 300 mg three times a day. Results - Labs: Blood glucose reading reported to be 134 mg/dL postprandial (date unspecified). Plan 1. Hypertension - Continue with amlodipine as previously prescribed. 2. Diabetes Mellitus - Blood work to be performed to adjust metformin dosage. 3. Peripheral Neuropathy - Increase gabapentin to 300 mg thrice daily. 4. Anxiety Disorder - Maintain lorazepam dosage; sertraline considered in future. 5. Insomnia - Continue lorazepam as needed for sleep. 6. Prostate Cancer - Continue regular surveillance post-treatment. 7. Osteoarthritis Of The Knee - Orthopedic referral post-cardiac catheterization. Discussion Notes During the visit, we reviewed the patient's conditions and current treatment protocols. For hypertension, the continuation of amlodipine was confirmed. The patient's diabetes management was discussed at length, highlighting stable glucose readings; we planned for further blood work to potentially adjust the metformin dose. Neuropathic pain required an increased dose of gabapentin, while the patient's anxiety management would continue with lorazepam, with sertraline as a potential alternative. Sleep issues were addressed in terms of current med ication use. Past treatments for prostate cancer were acknowledged, and his knee pain will be further assessed through a specialist referral after cardiac considerations. Patient Instructions - Continue taking your amlodipine as prescribed for blood pressure. - Follow up for blood tests to adjust diabetes medication if needed. - Increase gabapentin to 300 mg, three times a day. - Take lorazepam three times a week as needed for anxiety. - Attend to sleep concerns with current medications. - Follow up with orthopedics after cardiac consultation. - Call the clinic with any questions or if symptoms worsen.
== END 2025-04-02 15:33 | disposition home or self-care (01) ==
LOC: HO.HMCHD 14:34
PROVIDERS: PCP Internal Medicine; Visit Provider Internal Medicine
DX: E11.9 Type 2 diabetes mellitus without complications (principal)

== ENCOUNTER → 2025-04-02 14:33 | Outpatient (BNVA) | payer MEDICARE, SELFPAY ==
[2024-12-07 13:46] VITALS: BP 118/64; BP 126/50; BMI 37.2
== END ==
PROVIDERS: PCP Internal Medicine; Visit Provider Internal Medicine
DX: E11.42 Type 2 diabetes mellitus with diabetic polyneuropathy (principal); I10 Essential (primary) hypertension; F41.9 Anxiety disorder, unspecified; G47.00 Insomnia, unspecified; C61 Malignant neoplasm of prostate; Z79.899 Other long term (current) drug therapy
CPT/HCPCS: 96127; 99202

== ENCOUNTER 2025-04-04 07:06 | Outpatient (REF) | payer MEDICARE, SELFPAY ==
[2024-12-07 13:46] VITALS: BP 118/64; BP 126/50; BMI 37.2
[2025-04-04 07:35] LABS: INTERNATIONAL NORM RATIO 0.9 (0.9-1.1); Prothrombin Time 10.6 SEC (10.9-12.4)
[2025-04-04 07:37] LABS: Hematocrit 44.9 % (42.0-52.0); Hemoglobin 13.8 g/dl (14.0-18.0); Mean Corpuscular HGB Conc 30.7 g/dl (31.0-36.0); Mean Corpuscular Hemoglobin 27.1 pg (27.0-33.0); Mean Corpuscular Volume 88.2 fL (80.0-98.0); Mean Platelet Volume 10.3 fL (9.4-12.4); Platelet Count 187 X10*3/uL (160-400); Red Blood Count 5.09 X10*6/uL (4.60-5.80); Red Cell Distribution Width 14.6 % (11.0-16.0); White Blood Count 6.9 X10*3/uL (4.8-10.8)
[2025-04-04 07:41] LABS: Estimated Average Glucose 146 mg/dL; Hemoglobin A1C 177.8696 umol/L; Hemoglobin A1c % 6.7 % (<6.0); Total Hemoglobin (HGBA1C) 3599.3679 umol/L
[2025-04-04 07:49] LABS: Appearance Urine Clear; Color Urine Yellow; Glucose Urine UA Negative (Negative); Leukocyte Esterase Urine Negative (Negative); Nitrite Urine Negative (Negative); Urine Blood Negative (Negative); Urine Ketones Negative (Negative); Urine Protein Negative (Neg-Trace)
[2025-04-04 08:13] LABS: Alanine Aminotransferase 21 U/L (0-40); Albumin Level 3.6 g/dL (3.5-5.0); Alkaline Phosphatase 134 U/L (39-117); Anion Gap 12 (12-20); Aspartate Amino Transferase 36 U/L (5-37); Bilirubin Direct 0.2 mg/dL (0.0-0.5); Bilirubin Total 0.5 mg/dL (0.0-1.0); Blood Urea Nitrogen 20 mg/dL (9-16); Calcium 8.9 mg/dL (8.4-10.2); Carbon Dioxide 31 mmol/L (22-29); Chloride 106 mmol/L (96-108); Cholesterol 105 mg/dL (<200); Estimated Glomerular Filt Rate > 60; Glucose Random 141 mg/dL (60-115); HDL Cholesterol 32 mg/dL (>40); LDL Cholesterol Calculated 43 mg/dL (<100); Potassium 4.5 mmol/L (3.3-5.1); Sodium 144 mmol/L (135-145); Total Protein 6.2 g/dL (6.5-8.0); Triglycerides 151 mg/dL (<150)
[2025-04-04 08:18] LABS: Thyroid Stimulating Hormone 1.73 uIU/mL (0.32-4.0)
[2025-04-04 08:24] LABS: Creatinine Urine 82.75 mg/dL; Microalbum/Creatinine Ratio Ur 18.1 ug/mg cr (<30)
== END 2025-04-04 07:07 | disposition home or self-care (01) ==
LOC: HO.LAB 07:06
PROVIDERS: Internal Medicine Cardiovascular Disease; PCP Internal Medicine; Visit Provider Internal Medicine
DX: I25.118 Atherosclerotic heart disease of native coronary artery with other forms of angina pectoris (principal); I25.10 Atherosclerotic heart disease of native coronary artery without angina pectoris; I10 Essential (primary) hypertension; E11.9 Type 2 diabetes mellitus without complications
CPT/HCPCS: 36415; 80048; 80061; 80076; 81003; 82043; 82570; 83036; 84443; 85027; 85610

== ENCOUNTER 2025-04-10 10:13 | Outpatient (AMB) | payer MEDICARE, SELFPAY ==
[2024-12-07 13:46] VITALS: BP 118/64; BP 126/50; BMI 37.2
[2025-04-10 10:19] VITALS: BP 120/54; PULSE 75; O2SAT 93
--- NOTE | 2025-04-10 10:19 | A.OFFVIS_ITS ---
Vital Signs 04/10/25 10:19 Height 5 ft 10 in BMI Reason not done Patient refused/unable BP 120/54 L Blood Pressure Location Lt brachial Position Sitting Pulse 75 Pulse Source Pulse Oximeter Pulse Oximetry (%) 93 Oxygen Delivery Method Room Air Intake Visit Reasons: COPD Credit Office Manager Required: No Accompanied by: Self / Same As Patient Allergies No Known Allergies Allergy (Verified 04/10/25 10:21) HPI Comments Details: The patient is a 79-year-old gentleman with a question history of COPD who pr esents with worsening dyspnea and abnormal CT scan of the chest. He states for the last several months the patient does get short of breath with activity. If he climbs up at down stairs she does get short of breath. [id number] severity. Apparently he was seen in the ER for worsening respiratory symptoms. 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 Therefore, the patient is referred to Pulmonary. Overall the patient feels well. He stays active. He denies any significant coughing. 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 In addition to that he does have a smoking history. He also complains of daytime drowsiness. He has a hard time sleeping in does wake up short of breath at times. The patient has underlying COPD and based on hypoxia he should have a overnight oximetry to see if he qualifies for nocturnal oxygen. ? 08/10/2022 the patient is here for a pulmonary follow-up visit. The patient has had a very vent full spring and summer. Apparently he has been admitted multiple times with left lower lobe pneumonias and also underwent a percutaneous cardiac intervention with couple stents placed for the heart. Subsequently after that he then developed another bout of pneumonia this time on the right side. He has been concerned with the multiple pneumonias. He does get x-rays demonstrating clearing of the process after worse. He has not been using the oxygen and he wants the oxygen to be picked up at this time and I will do may make an order for that to happen. The patient also has been having issues with wheezing chest tightness as well. This is moderate severity. The patient has had very abnormal x-rays. Therefore I will request a CT scan of the chest to better address the recurrent pneumonias. The patient will also undergo blood work and start a course of antibiotics at this time. The patient does benefit from prednisone although he has concerns about his elevated sugars. Therefore will do a low-dose prednisone at this time. 06/01/2023 the patient is here for a pulmonary follow-up visit. He continues to have a significant productive cough. Difficult to expectorate. Moderate severity. The cough medication with codeine was not very effective for him. He kept coughing through the night. He was given a different cough medication in the past that seemed to work better. I do not have any records of it and we did call 3 different pharmacy tried identify the medication but still not clear. He will continue taking the guaifenesin with codeine for now. In meantime he did have a CT scan of the chest that we did evaluate. Appears to have a small right upper lobe nodular density measuring 1 cm. Although it is very ill-defined and indeed could be related to scarring. The patient also has some treating budding the right lower lobe area and has some chronic airway issues. 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 Will start CPT with acapella valve. 09/01/2023 the patient is here for a hospital follow-up visit. The patient apparently did have COVID-19 and did have significant acute on chronic respiratory failure along with COVID pneumonia. The patient did have a CT scan of the chest while he was in the hospital demonstrating areas of nodular ground- glass densities bilaterally. Also some lymphadenopathy. The ground-glass nodular densities were not present on his last ct scan last year. Therefore, will go ahead and repeat the CT scan in 3 months' time to make sure this large ground-glass nodular densities resolved. If they are still present then additional diagnostic interventions will be warranted. 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 It is very limited very severe. Will start him on azithromycin 3 times a week to see if we can help him with decreased mucus secretions and chronic bronchitis. In the future could consider referral to Interventional Pulmonary. But, stents in these central airways can be problematic with they can be dislodged. tracheoplasty is an option but with based on his age and his comorbidities is not worth the risk. 12/06/2023 the patient is here for a pulmonary follow-up visit. The patient overall has been feeling better. Although he continues with persistent cough. Also underwent surgery for problems with his bladder prolapse. This appears to be healing well. He did have a repeat CT scan of the chest demonstrating interval resolution of the ground-glass nodular densities suggesting more inflammatory infectious etiology. 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 Very narrow. The patient does not want undergo surgery. I do not believe a stent will be helpful as this is only a temporary fix. He did respond well to the azithromycin 3 times a week and also does well with the codeine cough syrup. He had 1 prescription last than 4 a prolonged period of time so therefore we know that he has not over taking the codeine syrup. Does have a significant condition that will result in a chronic cough. He is also responding well to the AirDuo inhaler. This is a lot more financially feasible for him and it is helping. 03/29/2024 the patient is here for a pulmonary follow-up visit. Overall the patient has been well. He had stopped his respiratory regimen in part because he was feeling better. Although then started noticing worsening respiratory symptoms. He did restart the inhaler and also the nebulized therapy. He also started the chest PT with the Acapella valve. The patient also restarted the azithromycin. We did review and personally reviewed his last CT scan of the chest done November 2023. Appears that the nodular densities have significantly improved which is very reassuring. Therefore, he is responding to his current regimen in addition to the azithromycin. He should continue the therapy as long as his QT interval is within normal limits. He will get the Prevnar 20 vaccine today that will be lifelong coverage for pneumococcal pneumonia. otherwise patient is Complaining of worsening hoarseness. Explained to him that it could be from the respiratory medication. He is to make sure to rinse well ideally with mouthwash. Still he does have significant cobblestoning postnasal drip. he will start using nasal steroids therapy. I will also refer him to ENT just to have a baseline laryngoscopy and make sure he does not have any thing abnormal with the vocal cords. 10/10/2024 the patient is here for a pulmonary follow-up visit. Overall the patient is doing well. He has responded well to the current respiratory regimen. He stop the azithromycin. He has gotten all his vaccines. Recent imaging to review. The patient still having some shortness of breath. Unfortunately continues to gravitate towards salty foods. He does have lower extremity edema. He is going to follow-up with knitting machine operator automatic soon. He is going to work on dietary restrictions as well. His respiratory exam is reassuring. Therefore would not going to make any changes at this time. Follow-up in 6 months. If he has any issues prior to that he will call for an earlier assessment. 04/10/2025 the patient is here for a pulmonary follow-up visit. Overall he is doing okay. His coughing spells are less often. But when they occurred there pretty significant. He does respond well to the cough medication. Will also try some 1st generation antihistamine therapy, chlorpheniramine which will also help with the cough. Continues uses respiratory inhalers as prescribed. He did follow-up with Cardiology. They did recommend cardiac rehabilitation very expensive release the copays. I did give him the online web site to look into so he can do the rehab at home which will be more financially reasonable. Otherwise the patient is working on his weight management and his diabetes. He is following up with a new primary care doctor. [facility] Medical History Diabetes COPD (chronic obstructive pulmonary disease) Hoarseness Pulmonary nodules Tracheobronchomalacia Pulmonary nodule COPD (chronic obstructive pulmonary disease) Migrated colon stent Hospital-acquired pneumonia Pneumonia Nephrolithiasis Prostate cancer Obesity MAYA (obstructive sleep apnea) Right bundle branch block (RBBB) on electrocardiogram (ECG) Hyperlipidemia HTN (hypertension) Chronic stable angina CAD (coronary artery disease) Surgical History Hx of arthroscopy of knee Hx of lithotripsy Stented coronary artery Hx of cardiac cath Hx laparoscopic cholecystectomy History of basal cell carcinoma (BCC) excision History of carpal tunnel release Hx of hernia repair History of eye surgery Hx of spinal surgery Family History Father CVD (cardiovascular disease) Mother CVD (cardiovascular disease) Brother CVD (cardiovascular disease) Social History Household Members: Spouse Housing: House Are you a primary customer care voice consultant to a significant other at home: No Do you presently have visiting nurse or other home services: No Alcohol intake: never Patient Tobacco Use Status: Former Tobacco user Tobacco use type: Cigarette Cigarette Packs Per Day: 1 Cigarettes Per Day: 20.0 Years Smoked: 30+ e-Cigarette/Vaping Use: Former Use Advance Directives Date on File: 07/17/21 service: No Current occupational status: retired Cognitive needs: No Hearing needs: No Vision needs: Yes (rx glasses) Review of Systems Const Denies fever(s) Eyes Denies loss of vision ENT Reports hoarseness, Denies nasal congestion, Denies nasal discharge and Denies post nasal drip Card Denies chest pain and Reports dyspnea on exertion Resp Denies chest congestion, Reports cough, Denies hemoptysis, Reports dyspnea on exertion and Denies wheezing GI Reports no additional complaints Reports no additional complaints Musc Reports no additional complaints Skin/Breast Denies rash Neuro Reports no additional complaints and Denies loss of vision Endo Reports no additional complaints Aller/Immun Denies wheezing Physical Exam Vital Signs: Last Vital Signs Pulse 75 04/10/25 10:19 BP 120/54 L 04/10/25 10:19 Pulse Ox 93 04/10/25 10:19 Oxygen Delivery Method Room Air 04/10/25 10:19 Const General: alert HEENT Throat: Yes posterior oropharynx abnormal and Yes cobblestoning Neck Neck: Yes normal visual inspection, Yes full ROM and Yes no lymphadenopathy Chest Chest palpation & inspection: normal inspection of the chest Resp Effort & Inspection: normal respiratory effort Auscultation: no rhonchi, no wheezes and diminished lung sounds Cardio Rate: regular rate Rhythm: regular rhythm Heart sounds: S1 normal heart sound present and S2 normal heart sound present GI Palpation (GI): Soft to palpation and nontender Auscultation: normal bowel sounds Skin General skin exam: rashes and/or lesions noted Assessment & Plan Assessment & Plan (1) CAD (coronary artery disease): Comment: s/p PCI x 2 stents 04/05 Code(s): I25.10 - Atherosclerotic heart disease of [place] coronary artery without angina pectoris Category: Medical Qualifiers: Associated angina: with other forms of angina Coronary Disease- Associated Artery/Lesion type: unspecified vessel or lesion type [place] vs. transplanted heart: unspecified whether [place] or transplanted heart Qualified Code(s): I25.118 - Atherosclerotic heart disease of [place] coronary artery with other forms of angina pectoris (2) Pulmonary nodule: Code(s): R91.1 - Solitary pulmonary nodule Category: Medical (3) Tracheobronchomalacia: Code(s): J39.8 - Other specified diseases of upper respiratory tract Category: Medical (4) Hoarseness: Code(s): R49.0 - Dysphonia Category: Medical Plan continue airduo Short-acting beta agonist as needed continue fluticasone nasal spray cough syrup cardiac eval ?PCI acapella valve for CPT ENT referral for evaluation of persistent hoarseness no significant findings . cough medicine Will discuss further imaging studies due Follow-up in 4-6 months Medications: New chlorpheniramine maleate do not exceed 2 doses per 24 hrs 4 mg PO Q8H PRN 60 tabs 6RF itching 30 days codeine-guaifenesin 10-100 mg/5 mL 10 mL PO Q6H PRN 300 mL 0RF cough 10 days Coding Level of Care Code Est Pt Level 4 (96636) Complex EM visit Add On G2211 Diagnoses Coronary artery disease with other form of angina pectoris, unspecified vessel or lesion type, unspecified whether [place] or transplanted heart I25.118 Associated angina: with other forms of angina Coronary Disease-Associated Artery/Lesion type: unspecified vessel or lesion type [place] vs. transplanted heart: unspecified whether [place] or transplanted heart Pulmonary nodule R91.1 Tracheobronchomalacia J39.8 Hoarseness R49.0 Time Spent (min) 16
--- OUTSIDE RECORDS SUMMARY | 2025-04-10 10:57 | XMS_ITS | Data Portability ---
Author Organization [place] - [facility], Allergy Address [address] [address] Care Team Providers Care Language Instructor Name Role Phone CARINE TODD Primary Care Provider CARINE TODD Referring Provider NANY STEELE Referring Provider Assessment Encounter Date [...] 1 %-0.05 % topical cream 2024 025 [facility], [address] [facility], [place], [address], 02/07/2025 08:49:01 Patient TargetsNo targets recorded. Patient InstructionsNo instructions recorded. Reason for Referral None Reported. Problems Name Problem SNOMED Code Status Onset Date Resolution Date Notes Provider Name and Address Organization Details Recorded Time Chronic obstructive pulmonary disease 23391224 Active 2023 MAXIMUS SPRINGER MD [address], [facility] [place], [address], [facility] - [facility] [place] 4 09:59:17 Chronic hoarseness 2089134410389 Active 2023 MAXIMUS SPRINGER MD [facility], [facility] [place] [place], [address], [facility] - [facility] [place] 4 09:59:22 Deviated nasal septum 187207361 Active 2023 MAXIMUS SPRINGER MD [address] [facility] [place], [facility] [place] [place], [address], [facility] - [facility] [place] 4 09:59:44 Chronic non-infecti ve otitis externa 541401404 Active 2023 MAXIMUS SPRINGER MD [address] [facility] [place], [facility] [place] [place], [address], [facility] - [facility] [place] 4 10:00:10 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 Procedures Surgical History Date Name Laterality Status Provider Name and Address Organization Details Recorded Time 02/08/20 25 Fiberoptic Laryngoscopy (Comprehensive) completed MAXIMUS VELEZ MD [address] [facility] [place] [address], [place], [address], [place] - [facility] 02/07/2025 08:47:11 08/03/20 24 Fiberoptic Laryngoscopy (Comprehensive) completed MAXIMUS VELEZ MD 100 [facility],[place] [address], [place], [address], [facility] - [facility] 08/03/2024 09:58:07 placement of stent in cardiac conduit completed MAXIMUS VELEZ MD [address] [facility] [place],[facility] 100, [place], [address], [facility] - [facility] 08/03/2024 09:37:30 Imaging Results None recorded. [...] Updated DateTime 02/07/2025 175.26 cm 38.4 kg/m2 524028.02 g Melanie Mamie [place] - [facility] 02/07/2025 08:37:05 Date Recorded Body height Body mass index (BMI) Body weight Provider Name and Address Organization Details Last Updated DateTime 08/03/2024 180.34 cm 36 kg/m2 602820.83 g Patrick Whyte [place] - [facility] 08/03/2024 09:25:35 Social History Question Answer Notes LastModified by Organizat ion Details LastModified Time Tobacco Smoking Status Former Smoker MAXIMUS VELEZ MD [address] [place] [address], [address], [facility] - [facility] 08/03/2024 09:37:17 When Did You Quit [...] SNOMED-CT Code Diagnosis ICD10 Code Diagnosis Note [id number] MAXIMUS ONOFRE MD [facility] [address] [address] 08/03/2024 08:50:08 08/03/2024 10:04:18 Chronic obstructive pulmonary disease 94108240 J44.9 Chronic hoarseness 91409 46415 105 R49.0 Chronic no n-infective otitis externa 618242651 H60.61 Deviated nasal septum 12 6971853 J34.2 [id number] MAXIMUS ONOFRE MD [facility] 100 [place] [address] 02/07/2025 08:29:00 02/07/2025 08:53:48 Eczema of external auditory canal 00753217 H60.549 Chronic hoarseness 62248 81434 105 R49.0 Chronic ob structive pulmonary disease 47894373 J44.9 Health Concerns Section Related Observation LastModified by Organization Detai ls LastModified Time None Recorded Concern Status LastModified by Organization Details LastModified Time None Recorded Advance Directives Directive None Recorded Payers Insurance Date Sequence Insurance Name Policy Number Policy Mills Covered Member ID Mills Member ID Guarantor Name 02/05/2025 1 [employer] - MEDICARE ADVANTAGE PLAN (MEDICARE REPLACEMENT HMO) [id number] Dmitri F F Incognito [id number] Dmitri F Mann Notes Date Note Type Note Provider Name and Address Organization Details Recorded Time 4 text/html 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 Hx of PND on FP nasal. Hx of globus sensationOccasional irritation/moisture right earRemote hx of tobacco use MAXIMUS VELEZ MD [address], [address], [place] - [facility] 08/03/2024 10:02:07 5 text/html Patient notes [...] been doing well MAXIMUS VELEZ MD 100 [facility],[place] [address], [place], [address], [facility] - [facility] 02/07/2025 08:50:05
== END 2025-04-10 10:47 | disposition home or self-care (01) ==
LOC: HO.HPS 10:14
PROVIDERS: PCP Internal Medicine; Visit Provider Hospitalist
DX: I25.118 Atherosclerotic heart disease of native coronary artery with other forms of angina pectoris (principal); R91.1 Solitary pulmonary nodule; J39.8 Other specified diseases of upper respiratory tract; R49.0 Dysphonia
CPT/HCPCS: 99214; G2211

== ENCOUNTER → 2025-04-10 10:13 | Outpatient (BNVA) | payer MEDICARE, SELFPAY ==
[2024-12-07 13:46] VITALS: BP 118/64; BP 126/50; BMI 37.2
== END ==
PROVIDERS: PCP Internal Medicine; Visit Provider Hospitalist
DX: I25.118 Atherosclerotic heart disease of native coronary artery with other forms of angina pectoris (principal); R91.1 Solitary pulmonary nodule; R49.0 Dysphonia; J39.8 Other specified diseases of upper respiratory tract; Z87.891 Personal history of nicotine dependence
CPT/HCPCS: 99212

== ENCOUNTER 2025-04-18 09:39 | Outpatient (REF) | payer MEDICARE, SELFPAY ==
[2024-12-07 13:46] VITALS: BP 118/64; BP 126/50; BMI 37.2
[2025-04-18 10:04] LABS: MANUAL DIFF FLAG NO
--- OUTSIDE RECORDS SUMMARY | 2025-04-18 10:07 | XMS_ITS | Data Portability ---
Author Organization [place] - [facility], Allergy Address [address] [address] Care Team Providers Care Cloth Stock Sorter Name Role Phone CARINE TODD Primary Care Provider [phone] CARINE TODD Referring Provider NANY STEELE Referring [...] 1 %-0.05 % topical cream 2024 025 [facility], [address] [facility], [place], [address], 02/07/2025 08:49:01 Patient TargetsNo targets recorded. Patient InstructionsNo instructions recorded. Reason for Referral None Reported. Problems Name Problem SNOMED Code Status Onset Date Resolution Date Notes Provider Name and Address Organization Details Recorded Time Chronic obstructive pulmonary disease 15453401 Active 2023 MAXIMUS SPRINGER MD [address], [facility] [place], [address], [facility] - [facility] [place] 4 09:59:17 Chronic hoarseness 3945912291338 Active 2023 MAXIMUS SPRINGER MD [address] [facility] [place], [place], [address], [facility] - [facility] [place] 4 09:59:22 Deviated nasal septum 405879962 Active 2023 MAXIMUS SPRINGER MD [address] [facility] [place], [place], [address], [facility] - [facility] [place] 4 09:59:44 Chronic non-infecti ve otitis externa 766709473 Active 2023 MAXIMUS SPRINGER MD [address] [facility] [place], [place], [address], [facility] - [facility] [place] 4 10:00:10 Eczema of external auditory canal 96825267 Active 2024 MAXIMUS SPRINGER MD [address] [facility] [place], [facility] [place], [address], [facility] - [facility] 5 08:47:18 Problem Notes None recorded. Procedures Surgical History Date Name Laterality Status Provider Name and Address Organization Details Recorded Time 02/08/20 25 Fiberoptic Laryngoscopy (Comprehensive) completed MAXIMUS VELEZ MD 100 [facility] [place] [address], [place], [address], [place] - [facility] 02/07/2025 08:47:11 08/03/20 24 Fiberoptic Laryngoscopy (Comprehensive) completed MAXIMUS VELEZ MD 100 [facility],[place] [address], [place], [address], [facility] - [facility] 08/03/2024 09:58:07 placement of stent in cardiac conduit completed MAXIMUS VELEZ MD [address] [facility] [place],[facility] 100, [place], [address], [facility] - [facility] 08/03/2024 09:37:30 Imaging Results None recorded. Procedure [...] Updated DateTime 02/07/2025 175.26 cm 38.4 kg/m2 193089.02 g Melanie Mamie [place] - [facility] 02/07/2025 08:37:05 Date Recorded Body height Body mass index (BMI) Body weight Provider Name and Address Organization Details Last Updated DateTime 08/03/2024 180.34 cm 36 kg/m2 749706.83 g Patrick Whyte [place] - [facility] 08/03/2024 09:25:35 Social History Question Answer Notes LastModified by Organizat ion Details LastModified Time Tobacco Smoking Status Former Smoker MAXIMUS VELEZ MD [address] [place] [address], [address], [facility] - [facility] 08/03/2024 09:37:17 When Did You Quit Smoking? [...] SNOMED-CT Code Diagnosis ICD10 Code Diagnosis Note [id number] MAXIMUS ONOFRE MD [facility] of [address] [address] 08/03/2024 08:50:08 08/03/2024 10:04:18 Chronic obstructive pulmonary disease 48110043 J44.9 Chronic hoarseness 01142 95826 105 R49.0 Chronic no n-infective otitis externa 692432668 H60.61 Deviated nasal septum 12 8132683 J34.2 [id number] MAXIMUS ONOFRE MD [facility] 100 [place] [address] 02/07/2025 08:29:00 02/07/2025 08:53:48 Eczema of external auditory canal 46402224 H60.549 Chronic hoarseness 49381 87392 105 R49.0 Chronic ob structive pulmonary disease 61646297 J44.9 Health Concerns Section Related Observation LastModified by Organization Detai ls LastModified Time None Recorded Concern Status LastModified by Organization Details LastModified Time None Recorded Advance Directives Directive None Recorded Payers Insurance Date Sequence Insurance Name Policy Number Policy Mills Covered Member ID Mills Member ID Guarantor Name 02/05/2025 1 [employer] - MEDICARE ADVANTAGE PLAN (MEDICARE REPLACEMENT HMO) [id number] 04 Dmitri F F Incognito [id number] Dmitri F Mann Notes Date Note Type Note Provider Name and Address Organization Details Recorded Time 4 text/html 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 Hx of PND on FP nasal. Hx of globus sensationOccasional irritation/moisture right earRemote hx of tobacco use MAXIMUS VELEZ MD [address], [address], [place] - [facility] 08/03/2024 10:02:07 5 text/html Patient notes that [...] been doing well MAXIMUS VELEZ MD 100 [facility],[place] [address], [place], [address], [facility] - [facility] 02/07/2025 08:50:05
[2025-04-18 10:44] LABS: Basophils Percent Auto 0.6 % (0-2); Eosinophils Absolute Auto 0.2 X10*3/uL (0.0-0.4); Eosinophils Percent Auto 3.4 % (0-4); Hematocrit 45.4 % (42.0-52.0); Imm Gran Abs Auto 0.02 X10*3/uL (0.00-0.03); Imm Gran Pct Auto 0.3 % (0.0-0.4); Lymphocytes Absolute Auto 1.7 X10*3/uL (1.2-4.9); Lymphocytes Percent Auto 25.2 % (20-40); Mean Corpuscular HGB Conc 30.8 g/dl (31.0-36.0); Mean Corpuscular Hemoglobin 26.8 pg (27.0-33.0); Monocytes Absolute Auto 0.6 X10*3/uL (0.1-1.2); Neutrophils Absolute Auto 4.2 x10*3/uL (2.0-8.3); Neutrophils Percent Auto 61.5 % (45-73); Platelet Count 203 X10*3/uL (160-400); Red Blood Count 5.22 X10*6/uL (4.60-5.80); Red Cell Distribution Width 14.6 % (11.0-16.0); White Blood Count 6.9 X10*3/uL (4.8-10.8)
[2025-04-18 10:49] LABS: Prothrombin Time 11.1 SEC (10.9-12.4)
[2025-04-18 11:38] LABS: Anion Gap 13 (12-20); Blood Urea Nitrogen 20 mg/dL (9-16); Carbon Dioxide 29 mmol/L (22-29); Chloride 106 mmol/L (96-108); Estimated Glomerular Filt Rate > 60; Glucose Random 106 mg/dL (60-115); Potassium 4.9 mmol/L (3.3-5.1); Sodium 143 mmol/L (135-145)
== END 2025-04-18 09:40 | disposition home or self-care (01) ==
LOC: HO.LAB 09:39
PROVIDERS: PCP Internal Medicine; Visit Provider Internal Medicine Cardiovascular Disease
DX: R06.02 Shortness of breath (principal)
CPT/HCPCS: 36415; 80048; 85025; 85610

== ENCOUNTER → 2025-05-08 23:59 | Outpatient (BNV) | payer MEDICARE, SELFPAY ==
[2024-12-07 13:46] VITALS: BP 118/64; BP 126/50; BMI 37.2
== END ==
PROVIDERS: PCP Internal Medicine; Visit Provider Internal Medicine Cardiovascular Disease
DX: I20.89 Other forms of angina pectoris (principal)
CPT/HCPCS: 92920; 93458; 93571; 99152

== ENCOUNTER 2025-05-31 15:07 | Outpatient (AMB) | payer MEDICARE, SELFPAY ==
[2024-12-07 13:46] VITALS: BP 118/64; BP 126/50; BMI 37.2
--- NOTE | 2025-05-31 15:45 | MHC.OFFVIS ---
Vital Signs 05/31/25 15:46 Height 5 ft 10 in Weight 259 lb 4.218 oz BMI 37.2 BP 120/52 L Blood Pressure Location Lt brachial Position Sitting Pulse 81 Pulse Source Pulse Oximeter Intake Visit Reasons: 2 wk follow ups/p cardiac cath [employer] Administrator Required: No Last Chalker: Last Chalker Present Allergies ticagrelor (From Brilinta) Allergy (Severe, Verified 06/01/25 14:50) Claustrophobia Medication List - Last Reconciled 05/31/25 by Lambert Ornelas NP allopurinol 100 mg PO DAILY amlodipine 5 mg PO DAILY aspirin 81 mg PO DAILY atorvastatin 40 mg PO BEDTIME 90 days blood sugar diagnostic (FreeStyle Lite Strips) Test four times a day or as directed. blood sugar diagnostic (FreeStyle Lite Strips) As directed blood-glucose meter (FreeStyle Lite Meter kit) As Directed chlorpheniramine maleate 4 mg PO Q8H PRN 30 days clopidogrel 75 mg PO DAILY codeine-guaifenesin 10-100 mg/5 mL 10 mL PO Q6H PRN 10 days flash glucose scanning reader (EvergageStyle Jacinta 14 Day [address]) As directed fluticasone propion-salmeterol 232-14 mcg/actuation 1 inh inhalation BID 30 days gabapentin 300 mg PO TID lancets (FreeStyle Lancets) Test four times a day or as directed. lancets (FreeStyle Lancets) As directed lorazepam mg PO BID PRN mecobalamin (vitamin B12) 1,000 mcg PO DAILY metformin 500 mg PO BIDWMEAL metoprolol succinate ER 50 mg PO DAILY nitroglycerin 0.4 mg sublingual Q5M PRN valsartan 40 mg PO DAILY HPI Comments Details: This is an 80-year-old male patient coming in for a follow-up visit, accompanied by his , status post cardiac catheterization. Patient with a history of hypertension, hyperlipidemia, coronary artery disease status post prior PCI in RCA and LCX in 2021, diabetes, and obesity. Recently patient has been reporting increasing shortness of breath with exertion along with chest pressure as well as feeling fatigued, similar to his previous symptoms. Subsequently, patient underwent cardiac catheter[facility] R[facility]. Today, patient reports feeling better and more energized without any symptoms of exertional chest pain, shortness of breath, palpitations, dizziness, orthopnea, PND, leg edema, presyncope, or syncope. Patient states that he has been compliant with all his medications. [facility] Medical History Diabetes COPD (chronic obstructive pulmonary disease) Hoarseness Pulmonary nodules Tracheobronchomalacia Pulmonary nodule COPD (chronic obstructive pulmonary disease) Migrated colon stent Hospital-acquired pneumonia Pneumonia Nephrolithiasis Prostate cancer Obesity MAYA (obstructive sleep apnea) Right bundle branch block (RBBB) on electrocardiogram (ECG) Hyperlipidemia HTN (hypertension) Chronic stable angina CAD (coronary artery disease) Surgical History Hx of arthroscopy of knee Hx of lithotripsy Stented coronary artery Hx of cardiac cath Hx laparoscopic cholecystectomy History of basal cell carcinoma (BCC) excision History of carpal tunnel release Hx of hernia repair History of eye surgery Hx of spinal surgery Family History Father CVD (cardiovascular disease) Mother CVD (cardiovascular disease) Brother CVD (cardiovascular disease) Social History Household Members: Spouse Housing: House Are you a primary resident care associate to a significant other at home: No Do you presently have visiting nurse or other home services: No Alcohol intake: never Patient Tobacco Use Status: Former Tobacco user Tobacco use type: Cigarette Cigarette Packs Per Day: 1 Cigarettes Per Day: 20.0 Years Smoked: 30+ e-Cigarette/Vaping Use: Former Use Advance Directives Date on File: 07/17/21 service: No Current occupational status: retired Cognitive needs: No Hearing needs: No Vision needs: Yes (rx glasses) Review of Systems ENT Reports dizziness Card Denies chest pain, Denies chest pain at rest, Denies chest pain with activity, Denies rapid heart rate, Denies pedal edema, Denies edema, Denies leg edema, Denies lightheadedness, Denies palpitations, Denies dyspnea, Denies dyspnea on exertion and Denies orthopnea Resp Denies cough, Denies dyspnea and Denies dyspnea on exertion GI Denies hematochezia and Denies change in stool character Musc Denies abnormal gait, Reports limited range of motion, Reports muscle cramps, Denies muscle weakness, Denies numbness, Denies radiating pain into limb, Denies stiffness and Denies tingling Neuro Denies abnormal gait, Reports dizziness, Denies numbness and Denies tingling Endo Denies palpitations Physical Exam Vital Signs: Last Vital Signs Pulse 81 05/31/25 15:46 BP 120/52 L 05/31/25 15:46 BMI result Body Mass Index 37.2 Const General: cooperative, healthy appearing, comfortable and no acute distress Orientation/consciousness: patient oriented x3 HEENT Head: Yes normal to inspection Neck Neck: Yes normal visual inspection, Yes trachea midline and Yes supple Chest Chest palpation & inspection: normal inspection of the chest Resp Effort & Inspection: normal respiratory effort Auscultation: clear to auscultation bilaterally, no crackles, no rales, no rhonchi and no wheezes Cardio Jugular venous distension: no JVD Palpation: normal PMI Rate: regular rate Rhythm: regular rhythm Heart sounds: S1 normal heart sound present, S2 normal heart sound present, no click, no gallops, no murmurs and no rubs Peripheral pulses: Peripheral pulses 2+ throughout GI Inspection: Yes normal to inspection Palpation (GI): Soft to palpation Auscultation: normal bowel sounds Skin General skin exam: no rashes or lesions noted Neuro General: patient oriented x3 Extrem General: Yes normal to inspection, No no pedal edema and No calf tenderness Psych Appearance: grossly normal Mental Status: mental status grossly normal Speech and movement: Normal speech and movement present Assessment & Plan Assessment & Plan (1) CAD (coronary artery disease): Comment: s/p PCI x 2 stents 04/05 Code(s): I25.10 - Atherosclerotic heart disease of [place] coronary artery without angina pectoris Category: Medical Qualifiers: Associated angina: with other forms of angina Coronary Disease-Associated Artery/Lesion type: unspecified vessel or lesion type [place] vs. transplanted heart: unspecified whether [place] or transplanted heart Qualified Code(s): I25.118 - Atherosclerotic heart disease of [place] coronary artery with other forms of angina pectoris Plan: History of coronary artery disease status post PCI to RCA and LCX 2021. Recently with increasing fatigue and chest discomfort, patient underwent another cardiac catheterization with Dr. Rios. 05/08/2025-cardiac catheterization showed patent RCA and LCX stents. Mid LAD with a 70% stenosis, abnormal IFR at 0.84. Due to difficulty in delivering equipment, patient was only able to get a balloon angioplasty to LAD. Plan per Dr. Rios as if on the balloon angioplasty patient's symptoms improved significantly then LAD stenosis probably the culprit lesion. For now to continue with medical management in addition to the balloon angioplasty. Continue aspirin and Plavix therapy. In case of developing anginal symptoms again, plan is for atherectomy and PCI from a femoral approach. Reviewed the plan with Dr. Rios and patient aware of this. Continue amlodipine, metoprolol, and valsartan therapy. Right wrist catheterization site is healed very well. We will refer patient out to cardiac rehab. Continue high-dose statin therapy with an LDL goal less than 70. (2) Status post cardiac catheterization: Code(s): Z98.890 - Other specified postprocedural states Category: Surgical Plan: As above. (3) HTN (hypertension): Code(s): I10 - Essential (primary) hypertension Category: Medical Plan: Blood pressure is well-controlled. Continue current regimen. Advised monitoring blood pressures at home with a goal less than 130/80. (4) Diabetes: Code(s): E11.9 - Type 2 diabetes mellitus without complications Category: Medical Plan: Continue aggressive management of diabetes with an A1c goal less than 7%. (5) Obesity: Code(s): E66.9 - Obesity, unspecified Category: Medical Plan: Advised heart healthy diet, regular exercise, losing weight, med compliance, and aggressive management of vascular risk factors. Follow up in 3-4 months. In the interim, patient will call the office with any concerns or change in symptoms. Advised to seek ER care in case of exertional chest pain not resolved with rest. This note was generated using voice recognition software. While every effort has been made to ensure accuracy and proper child advocate, there may be occasional errors that could affect the content or meaning of the described symptoms. Orders: Orders Cardiac Rehab Today I25.118 - Atherosclerotic heart disease of [place] coronary artery with other forms of angina pectoris, Z95.5 - Presence of coronary angioplasty implant and graft, Z98.890 - Other specified postprocedural states Coding Level of Care Code Est Pt Level 4 (61580) Complex EM visit Add On G2211 Diagnoses Coronary artery disease with other form of angina pectoris, unspecified vessel or lesion type, unspecified whether [place] or transplanted heart I25.118 Associated angina: with other forms of angina Coronary Disease-Associated Artery/Lesion type: unspecified vessel or lesion type [place] vs. transplanted heart: unspecified whether [place] or transplanted heart Status post cardiac catheterization Z98.890 HTN (hypertension) I10 Diabetes E11.9 Obesity E66.9 Time Spent (min) 31 Comment Time spent in reviewing the chart, test results, assessment, counseling and documentation.
[2025-05-31 15:46] VITALS: BP 120/52; PULSE 81; BMI 37.2
--- OUTSIDE RECORDS SUMMARY | 2025-05-31 15:51 | XMS_ITS | Data Portability ---
Author Organization [place] [facility], Allergy Address [address] [address] Care Team Providers Care Book Salesman Name Role Phone CARINE TODD Primary Care [...] Test Not available Not available Not available Lab None recorded . Referral None recorded . Procedures None recorded . Surgeries None recorded . Imaging None recorded . Medication Orders clotrima zole-bet amethaso ne 1 %-0.05 % topical cream 2024 025 [facility], [address] [place], [address], 02/07/2025 08:49:01 Patient TargetsNo targets recorded. Patient InstructionsNo instructions recorded. Reason for Referral None Reported. Problems Name Problem SNOMED Code Status Onset Date Resolution Date Notes Provider Name and Address Organization Details Recorded Time Chronic obstructive pulmonary disease 66489103 Active 2023 MAXIMUS SPRINGER MD [address] [place] [address],[address], [place], [address], [facility] 4 09:59:17 Chronic hoarseness 6162083179829 Active 2023 MAXIMUS SPRINGER MD [address] [place] [address],[address], [place], [address], [facility] 4 09:59:22 Deviated nasal septum 053272315 Active 2023 MAXIMUS SPRINGER MD [address] [place] [address],ST E [facility], [place], [address], [facility] 4 09:59:44 Chronic non-infecti ve otitis externa 903382724 Active 2023 MAXIMUS SPRINGER MD [address] [place] [address], E [facility], [place], [address], [facility] 4 10:00:10 Eczema of external auditory canal 70765466 Active 2024 MAXIMUS SPRINGER MD 100 [facility], [address], [place], [address], [facility] 5 08:47:18 Problem Notes None recorded. Procedures Surgical History Date Name Laterality Status Provider Name and Address Organization Details Recorded Time 02/08/20 25 Fiberoptic Laryngoscopy (Comprehensive) completed MAXIMUS VELEZ MD 100 [facility],[address], [address], [facility] 02/07/2025 08:47:11 08/03/20 24 Fiberoptic Laryngoscopy (Comprehensive) completed MAXIMUS VELEZ MD 100 [facility] 100, [place], [address], [place] [facility] 08/03/2024 09:58:07 placement of stent in cardiac conduit completed MAXIMUS VELEZ MD [address], [place], [address], [place] [facility] 08/03/2024 09:37:30 Imaging Results None recorded. Procedure [...] Updated DateTime 02/07/2025 175.26 cm 38.4 kg/m2 156678.02 g Melanie Hatch [place] - [facility] 02/07/2025 08:37:05 Date Recorded Body height Body mass index (BMI) Body weight Provider Name and Address Organization Details Last Updated DateTime 08/03/2024 180.34 cm 36 kg/m2 721163.[address] [place] - [facility] 08/03/2024 09:25:35 Social History Question Answer Notes LastModified by Organizat ion Details LastModified Time Tobacco Smoking Status Former Smoker MAXIMUS VELEZ MD [address] [place] [address], [address], [facility] 08/03/2024 09:37:17 When Did You Quit Smoking? [...] SNOMED-CT Code Diagnosis ICD10 Code Diagnosis Note [id number] MAXIMUS ONOFRE MD [facility] [address] [address] 08/03/2024 08:50:08 08/03/2024 10:04:18 Chronic obstructive pulmonary disease 71761111 J44.9 Chronic hoarseness 31323 21244 105 R49.0 Chronic no n-infective otitis externa 936535515 H60.61 Deviated nasal septum 12 9121924 J34.2 [id number] MAXIMUS ONOFRE MD [facility] [address] [place] [address] 02/07/2025 08:29:00 02/07/2025 08:53:48 Eczema of external auditory canal 84672473 H60.549 Chronic hoarseness 69963 41567 105 R49.0 Chronic ob structive pulmonary disease 36702329 J44.9 Health Concerns Section Related Observation LastModified by Organization Detai ls LastModified Time None Recorded Concern Status LastModified by Organization Details LastModified Time None Recorded Advance Directives Directive None Recorded Payers Insurance Date Sequence Insurance Name Policy Number Policy Mills Covered Member ID Mills Member ID Guarantor Name 02/05/2025 1 [employer] - MEDICARE ADVANTAGE PLAN (MEDICARE REPLACEMENT HMO) [id number] Dmitri Darnell [id number] Dmitri Darnell Notes Date Note Type Note Provider Name and Address Organization Details Recorded Time 4 text/html Referred by public health worker for hoarseness. Hx of PND on FP nasal. Hx of globus sensationOccasional irritation/moisture right earRemote hx of tobacco use MAXIMUS VELEZ MD [address] [place] [address], [address], [place] [facility] 08/03/2024 10:02:07 5 text/html Patient notes that [...] has been doing well MAXIMUS VELEZ MD [address] [place] [address], [address], [facility] 02/07/2025 08:50:05
--- OUTSIDE RECORDS SUMMARY | 2025-05-31 15:51 | XMS_ITS | Clinical Summary ---
Author Organization [facility] Address [address] [place] [address] Care Team Providers Care C Iron Worker Name Role Phone Jaxon Coffman MD Primary Care Provider [phone] Allergies No known active allergies Medications lisinopril [...] 99 07/01/2018 11:26 PM EDT Temperature 36.2 C (97.1 F) 07/01/2018 8:56 PM EDT Respiratory Rate 20 07/01/2018 11:26 PM EDT [...] MGD MEDICARE OUT OF NETWORK Care Teams C Iron Worker Relationship Specialty Start Date End Date Jaxon Coffman MD [address] [place] [address] [place] [address] PCP - General 07/01/18
== END 2025-05-31 16:21 | disposition home or self-care (01) ==
PROVIDERS: PCP Internal Medicine; Visit Provider Nurse Practitioner Family
DX: I25.118 Atherosclerotic heart disease of native coronary artery with other forms of angina pectoris (principal); Z98.890 Other specified postprocedural states; I10 Essential (primary) hypertension; E11.9 Type 2 diabetes mellitus without complications; E66.9 Obesity, unspecified
CPT/HCPCS: 99214; G2211

== ENCOUNTER → 2025-05-31 15:07 | Outpatient (BNVA) | payer MEDICARE, SELFPAY ==
[2024-12-07 13:46] VITALS: BP 118/64; BP 126/50; BMI 37.2
== END ==
PROVIDERS: PCP Internal Medicine; Visit Provider Nurse Practitioner Family
DX: I25.118 Atherosclerotic heart disease of native coronary artery with other forms of angina pectoris (principal); I10 Essential (primary) hypertension; E66.9 Obesity, unspecified; Z98.890 Other specified postprocedural states; E11.9 Type 2 diabetes mellitus without complications; Z68.37 Body mass index [BMI] 37.0-37.9, adult; Z79.2 Long term (current) use of antibiotics; Z79.84 Long term (current) use of oral hypoglycemic drugs
CPT/HCPCS: 99212

== ENCOUNTER → 2025-07-18 10:13 | Outpatient (BNVA) | payer MEDICARE, SELFPAY ==
[2024-12-07 13:46] VITALS: BP 118/64; BP 126/50; BMI 37.2
== END ==
PROVIDERS: PCP Internal Medicine; Visit Provider Student in an Organized Health Care Education/Training Program
DX: E11.9 Type 2 diabetes mellitus without complications (principal); I25.118 Atherosclerotic heart disease of native coronary artery with other forms of angina pectoris; E78.5 Hyperlipidemia, unspecified; I10 Essential (primary) hypertension; G62.9 Polyneuropathy, unspecified
CPT/HCPCS: 99212

== ENCOUNTER → 2025-07-18 10:13 | Outpatient (AMB) | payer MEDICARE, SELFPAY ==
[2024-12-07 13:46] VITALS: BP 118/64; BP 126/50; BMI 37.2
--- OUTSIDE RECORDS SUMMARY | 2025-07-15 23:59 | XMS_ITS | Continuity of Care Document ---
Author Organization [facility] Address [address] [place] [address]- Care Team Providers Care Top Printing Press Operator Name Role Phone Jaxon Coffman MD Primary Care Physician [place] [facility] [place]): [place]25 - 07/15/25 [facility] [address] [place] [address]- Attending Physician: Jesus Alford Admitting Physician: Jesus Alford Referring Physician: Jesus Alford Encounter Type: Triage Allergies, Adverse Reactions, Alerts No Known Allergies [...] opioid drug. Start Date: 01/22/22 Status: Ordered Medication Dispense Status: Completed Quantity: 30.0 Unit: tablet Total Allowed Fills: 1 Fills Dispensed: 0 amLODIPine 5 mg oral tablet 5 mg, 1, tablet, By Mouth, Daily, # 90 tablet, Refills 3, Tot. Refills 3, Maintenance, 05/31/20 2:15:00 PM EDT, Route to Pharmacy Electronically, [id number], 180, cm, 05/31/20 8:53:00EDT, Height Start Date: 05/31/20 Status: Ordered Medication Dispense Status: Completed Quantity: 90.0 Unit: tablet Total Allowed Fills: 4 Fills Dispensed: 0 aspirin 81 mg oral delayed release tablet 81 mg, 1, tablet, By Mouth, Daily, # 90 tablet, Refills 4, Tot. Refills 4, Maintenance, 03/09/22 10:42:00 AM EDT, Route to Pharmacy Electronically, [facility], Partial fill upon patient request if the prescription is for a schedule II opioid drug., 180, cm, 03/09/22 7:25:00 EDT, Height, 115.3, kg, 03/09/22 7:25:00 EDT, Dry Weight Start Date: 03/09/22 Stop Date: 06/02/23 Status: Ordered Medication Dispense Status: Completed Quantity: 90.0 Unit: tablet Total Allowed Fills: 5 Fills Dispensed: 0 atorvastatin 40 mg oral tablet TAKE ONE TABLET BY MOUTH EVERY EVENING Start Date: 02/23/24 Status: Ordered Medication Dispense Status: Completed Total Allowed Fills: 1 Fills Dispensed: 0 clopidogrel 75 mg oral tablet 75 mg, 1, tablet, By Mouth, Daily, # 90 tablet, Refills 3, Tot. Refills 3, Maintenance, 05/08/25 3:22:00 PM EDT, Route to Pharmacy Electronically, [facility], Partial fill upon patient request if the prescription is for a schedule II opioid drug., 180, cm, 02/23/24 7:48:00 EDT, Height, 112.9, kg, 10/15/23 6:17:00 EST, Dry Weight Start Date: 05/08/25 Status: Ordered Medication Dispense Status: Completed Quantity: 90.0 Unit: tablet Total Allowed Fills: 4 Fills Dispensed: 0 fluticasone-salmeterol 232 mcg-14 mcg/inh inhalation powder 0 Refills, Maintenance, 02/23/24 7:51:00 AM EDT, Partial fill upon patient request if the prescription is for a schedule II opioid drug. Start Date: 02/23/24 Status: Ordered Medication Dispense Status: Completed Total Allowed Fills: 1 Fills Dispensed: 0 metFORMIN 500 mg oral tablet TAKE ONE-HALF TABLET BY MOUTH TWICE A DAY Start Date: 02/23/24 Status: Ordered Medication Dispense Status: Completed Total Allowed Fills: 1 Fills Dispensed: 0 Metoprolol Succinate ER 50 mg oral tablet, extended release 1 tablet = 50 mg, By Mouth, 2 times a day, # 30 tablet, 0 Refills, Maintenance, 05/31/20 2:14:00 PM EDT, ER Tablet Start Date: 05/31/20 Status: Ordered Medication Dispense Status: Completed Quantity: 30.0 Unit: tablet Total Allowed Fills: 1 Fills Dispensed: 0 nitroglycerin 0.3 mg sublingual tablet 1 tablet = 0.3 mg, Sublingual, Every 5 minutes, PRN as needed for chest pain, not to exceed 3 doses/15 min--if pain persists, seek medical attention, # 100 tablet, 0 Refills, Maintenance, 01/22/22 1:55:00 PM EST, Tablet, Partial fill upon patient request if the prescription is for a schedule II opioid drug. Start Date: 01/22/22 Status: Ordered Medication Dispense Status: Completed Quantity: 100.0 Unit: tablet Total Allowed Fills: 1 Fills Dispensed: 0 valsartan 40 mg oral tablet Refills 0, Maintenance, 02/23/24 7:51:00 AM EDT, Partial fill upon patient request if the prescription is for a schedule II opioid drug. Start Date: 02/23/24 Status: Ordered Medication Dispense Status: Completed Total Allowed Fills: 1 Fills Dispensed: 0 Social History Social History Type Response Smoking [...] Safety Implantable Status Assigning Authority Unknown Unknown [id number] Unknown 07/05/26 Unknown Unknown Active Unk nown Patient Care team information Care Team Personnel Name: Jaxon Coffman MD Position: [facility] Outreach Member Role: PCP Address: [address] [place] [address] [place] [address]- Telecom: Name: Bailey Xie RN Position: [facility] RN Member Role: Primary Care Nurse Care Team Related Persons Name: BANDAR MCKEON Name: ROSAURA ALAN Name: ROSAURA HARRY Insurance Providers Guarantor name: [facility] [employer] [facility] Information #: 1 Payer: [employer] MEDICARE ADV HMO Payer Identifier: NA Member Number: [id number] Group Number: [id number] Subscriber Identifier: NA Relationship to Subscriber: self Coverage Type: Medicare HMO Coverage Verification Date: NA Telecom: Address:
--- OUTSIDE RECORDS SUMMARY | 2025-07-15 23:59 | XMS_ITS | Continuity of Care Document ---
Author Organization [facility] Address [address] [place] [address]- Care Team Providers Care Lvn Lpn Name Role Phone Jaxon Coffman MD Primary Care Physician [phone] [id number]17[facility] - 07/15/25 [facility] [address] [place] [address]- Attending Physician: Fili Lopez MD Admitting Physician: Fili Lopez MD Encounter Type: Pre-OutPatient One Time Allergies, [...] 2:15:00 PM EDT, Route to Pharmacy Electronically, [id number], 180, cm, 05/31/20 8:53:00EDT, Height Start Date: 05/31/20 Status: Ordered Medication Dispense Status: Completed Quantity: 90.0 Unit: tablet Total Allowed Fills: 4 Fills Dispensed: 0 aspirin 81 mg oral delayed release tablet 81 mg, 1, tablet, By Mouth, Daily, # 90 tablet, Refills 4, Tot. Refills 4, Maintenance, 03/09/22 10:42:00 AM EDT, Route to Pharmacy Electronically, [facility], Partial fill upon patient request if [...] Safety Implantable Status Assigning Authority Unknown Unknown [id number] Unknown 07/05/26 Unknown Unknown Active Unk nown Patient Care team information Care Team Personnel Name: Jaxon Coffman MD Position: [facility] Outreach Member Role: PCP Address: [address] [place] [address] [place] [address]- Telecom: Name: Bailey Xie RN Position: [facility] RN Member Role: Primary Care Nurse Care Team Related Persons Name: BANDAR MKCEON Name: ROSAURA ALAN Name: ROSAURA HARRY Insurance Providers Guarantor name: [facility] Plan Information #: 1 Payer: [employer] MEDICARE ADV HMO Payer Identifier: NA Member Number: [id number] Group Number: [id number] Subscriber Identifier: [id number] Relationship to Subscriber: self Coverage Type: Medicare HMO Coverage Verification Date: Telecom: Address:
--- NOTE | 2025-07-18 10:15 | A.OFFPC_ITS ---
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 The pain began approximately four days ago. The patient recalls the pain onset after going to the bathroom and describes it as terrible but tolerable, acknowledging his age might influence his perception of the pain. He relates the pain to a previous experience 12-13 years ago with kidney stones, for which he received treatment. The patient's historical kidney stone pain occurred on both sides, similar to his current experience. However, this time, the severity of pain does not match that prior episode. He reports that the pain is episodic, occurring when he assumes certain positions or engages in specific activities, such as using the bathroom. The patient suspects the possibility of a urinary tract infection (UTI) but denies burning on urination. There is an absence of fever or chills associated with his symptoms. He only mentions similar discomfort during incidents with his historical kidney stones when he had severe pain needing hospital intervention, at which time morphine was ineffective, and only NSAIDs like Toradol provided relief. 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 - Cardiovascular Disease with Stents - History of Kidney Stones - Chronic Anxiety - Hyperlipidemia Surgical History: - Stomach ulcer surgery (1970s-1960s era ) - Gallbladder removal Medications: - Amlodipine for hypertension - Atorvastatin for hyperlipidemia - Plavix for cardiovascular stent manage ment - Inhalers for respiratory management - Gabapentin for diabetic neuropathy - Metformin for type 2 diabetes manageme nt - Metoprolol for hypertension - Valsartan for hypertension - Lorazepam for anxiety attacks (used ra rely) [facility] Medical History Diabetes COPD (chronic obstructive pulmonary disease) Hoarseness Pulmonary nodules Tracheobronchomalacia Pulmonary nodule COPD (chronic obstructive pulmonary disease) Migrated colon stent Hospital-acquired pneumonia Pneumonia Nephrolithiasis Prostate cancer Obesity MAYA (obstructive sleep apnea) Right bundle branch block (RBBB) on electrocardiogram (ECG) Hyperlipidemia HTN (hypertension) Chronic stable angina CAD (coronary artery disease) Surgical History Hx of arthroscopy of knee Hx of lithotripsy Stented coronary artery Hx of cardiac cath Hx laparoscopic cholecystectomy History of basal cell carcinoma (BCC) excision History of carpal tunnel release Hx of hernia repair History of eye surgery Hx of spinal surgery Family History Father CVD (cardiovascular disease) Mother CVD (cardiovascular disease) Brother CVD (cardiovascular disease) Social History Household Members: Spouse Housing: House Are you a primary acute care physical therapist to a significant other at home: No Do you presently have visiting nurse or other home services: No Alcohol intake: never Patient Tobacco Use Status: Former Tobacco user Tobacco use type: Cigarette Cigarette Packs Per Day: 1 Cigarettes Per Day: 20.0 Years Smoked: 30+ e-Cigarette/Vaping Use: Former Use Advance Directives Date on File: 07/17/21 service: No Current occupational status: retired Cognitive needs: No Hearing needs: No Vision needs: Yes (rx glasses) Questionnaire Thrive Questionnaire Date Thrive assessed: 04/02/25 AUDIT C Alcohol Use Questionnaire (AUDIT-C) 1. How often do you have a drink containing alcohol?: Never 3. How often do you have six or more drinks on one occasion?: Never Total Score: 0 TALIA-7 AMB Questionnaire TALIA-7 Date TALIA - 7 assessed: 04/02/25 Source: Developed by Drs. Dmitri Martin, Aleja Oglesby, Patrick Long and colleagues, with an educational tim from [employer]. Review of Systems Const Details: - Musculoskeletal: Reports bilateral flank pain - Neurological: Reports neuropathy in feet - Psychiatric: Denies regular anxiety attacks, reports infrequent use of lorazepam - Gastrointestinal: Denies pain during urination All systems reviewed & are unremarkable except as noted in HPI and below Physical exam (Primary Care) Vital Signs: Last Vital Signs Temp 98.3 F 07/18/25 10:21 Pulse 64 07/18/25 10:21 Resp 18 07/18/25 10:21 BP 112/56 L 07/18/25 10:21 Pulse Ox 96 07/18/25 10:21 Oxygen Delivery Method Room Air 07/18/25 10:21 BMI result Body Mass Index 37.7 Tobacco/Smoking Status: Tobacco use Status Tobacco use date assessed 04/02/25 07/18/25 10:17 Patient Tobacco Use Status Former Tobacco user 07/18/25 10:17 Tobacco use type Cigarette 07/18/25 10:17 e-Cigarette/Vaping Use Former Use 07/18/25 10:17 Thrive Assessment: Date of Thrive Assessment Date Thrive assessed 04/02/25 07/18/25 10:17 Const Other: General: Alert and oriented, Well nourished, No acute distress. Eye: Pupils are equal, round and reactive to light, Intact accommodation, Extraocular movements are intact, Normal conjunctiva, Vision unchanged. HENT: Normocephalic, Atraumatic, Tympanic membranes are clear, Normal hearing, Oral mucosa is moist, No pharyngeal erythema, Ear canals patent. Respiratory: Lungs CTA bilaterally, No wheeze, Respirations are non-labored. Cardiovascular: Regular rate, Regular rhythm, S1 auscultated, S2 auscultated, No murmur, Good pulses equal in all extremities, Normal peripheral perfusion, No edema. Gastrointestinal: Soft, Non-tender, Non-distended, Normal bowel sounds, No organomegaly. Musculoskeletal: Normal range of motion, Normal strength, No tenderness, No swelling, No deformity, Normal gait. Integumentary: Warm, Dry, [place], Intact. Neurologic: Alert, Oriented, Normal sensory, Normal motor function, No focal defects, Cranial Nerves II-XII are grossly intact, Normal deep tendon reflexes. Psychiatric: Cooperative, Appropriate mood & affect, Normal judgment. Coding Level of Care Code Est Pt Level 4 (71062) Complex EM visit Add On G2211 Diagnoses Diabetes E11.9 Coronary artery disease with other form of angina pectoris, unspecified vessel or lesion type, unspecified whether marshall or transplanted heart I25.118 Associated angina: with other forms of angina Coronary Disease-Associated Artery/Lesion type: unspecified vessel or lesion type [place] vs. transplanted heart: unspecified whether marshall or transplanted heart Hyperlipidemia E78.5 HTN (hypertension) I10 Neuropathy G62.9 Nephrolithiasis N20.0 Assessment & Plan Assessment & Plan (1) Diabetes: Comment: - Continue monitoring blood sugar levels; his last A1c was 6.7. - Discussed diminishing effort in controlling sugar intake. Code(s): E11.9 - Type 2 diabetes mellitus without complications Category: Medical Plan: Order A1C (2) CAD (coronary artery disease): Comment: s/p PCI x 2 stents 04/05 - Continue current regimen including atorvastatin and Plavix. Code(s): I25.10 - Atherosclerotic heart disease of marshall coronary artery without angina pectoris Category: Medical Qualifiers: Associated angina: with other forms of angina Coronary Disease- Associated Artery/Lesion type: unspecified vessel or lesion type [place] vs. transplanted heart: unspecified whether marshall or transplanted heart Qualified Code(s): I25.118 - Atherosclerotic heart disease of marshall coronary artery with other forms of angina pectoris (3) Hyperlipidemia: Comment: Continue Statin Code(s): E78.5 - Hyperlipidemia, unspecified Category: Medical (4) HTN (hypertension): Comment: - Continue current antihypertensive regimen including amlodipine, metoprolol, and valsartan. - Refill valsartan prescription was provided based on patient's report of running out. Code(s): I10 - Essential (primary) hypertension Category: Medical (5) Neuropathy: Code(s): G62.9 - Polyneuropathy, unspecified Plan: - Continue gabapentin for neuropathy management. - Reinforce the importance of blood sugar management to prevent further neuropathy progression. (6) Nephrolithiasis: Comment: - Considered potential recurrence of kidney stones based on location and episodic nature. - An ultrasound is recommended to evaluate for kidney stones with awareness that this may take time. - Encourage patient to seek further evaluation if symptom severity increases. Code(s): N20.0 - Calculus of kidney Category: Medical Plan 6. Chronic Anxiety - Lorazepam prescribed as needed for anxiety attacks. - Discussed potential risks of lorazepam, especially in older age. 7. Obesity - Discussed weight management efforts and behavioral strategies for reducing obesity risk. During the consultation, I discussed with the patient the potential diagnosis of kidney stones versus other causes for his bilateral flank pain. Given his history with kidney stones, an ultrasound was recommended to explore this possibility further. The patient expressed concerns about managing his diabetes effectively, particularly relating to sugar intake. I emphasized the importance of controlling his diet to manage both diabetes and associated neuropathy. We also touched on the benefits and limitations of his current medication regimen for hypertension, cholesterol, and anxiety, noting that he should be cautious with lorazepam due to its potential side effects in elderly patients. Orders: Orders Hemoglobin A1c Today E11.9 - Type 2 diabetes mellitus without complications, G62.9 - Polyneuropathy, unspecified US renal BI Today N20.0 - Calculus of kidney UA and rflx microscopic Today N20.0 - Calculus of kidney Medications: Changed From valsartan 40 mg PO DAILY To valsartan 40 mg PO DAILY 90 tabs 0RF 90 days Patient Instructions: - Follow up with a pharmacy to obtain a refill on valsartan. - Maintain regular blood sugar monitoring and strive to control sugar intake, focusing on moderation in foods consumed. - Be aware of potential worsening symptoms of flank pain and seek medical attention if necessary. - Continue using gabapentin for neuropathy and medications for blood pressure and cholesterol. - Limit the use of chocolate and sugary treats to prevent spikes in blood sugar. - Remain observant of anxiety symptoms and avoid frequent use of lorazepam.
[2025-07-18 10:21] VITALS: BP 112/56; PULSE 64; RESP 18; TEMP 36.8; O2SAT 96; BMI 37.7
--- OUTSIDE RECORDS SUMMARY | 2025-07-18 11:43 | XMS_ITS | Clinical Summary ---
Author Organization Formerly [facility] Address [address] [place] [address] Care Team Providers Care Circle Edger Name Role Phone Jaxon Coffman MD Primary Care Provider [phone] Allergies No known active allergies Medications lisinopril [...] Health Maintenance Due Date Last Done Comments Advance Care Planning 1944 DTaP/Tdap/Td Vaccines (1 - Tdap) 1963 Pneumococcal [...] MGD MEDICARE OUT OF NETWORK Care Teams Circle Edger Relationship Specialty Start Date End Date Jaxon Coffman MD [address] [place] [address] [place] [address] PCP - General 07/01/18
--- OUTSIDE RECORDS SUMMARY | 2025-07-18 11:43 | XMS_ITS | Clinical Summary ---
Author Organization [facility] Address [address] [place] [address] Phone Care Team Providers Care Power System Operator Name Role Phone Jaxon Coffman MD Primary Care Provider Social History Tobacco Use Types Packs/Day Years Used Date Smoking Tobacco: Never Assessed Education Answer Date Recorded Are you interested in more education? Not on jeniffer e 03/12/2023 Are you concerned about learning? Not on file 03/12/2023 No 03/12/2023 No 03/12/2023 Digital Access Answer Date Recorded No 04/12/2023 No 04/12/2023 No 04/12/2023 Reliable internet access at home? Not on file 04/12/2023 Device with a working camera? Not on file Sex and Gender Information Value Date Recorded Sex Assigned at Not on file Legal Sex Male 10:49 AM EDT Gender Identity Not on file Sexual Orientation Not on file Plan of Treatment Not on file Medical Devices Not on file Care Teams Power System Operator Relationship Specialty Start Date End Date Jaxon Coffman MD [address] [place] [address] [place] [address] PCP - General 03/22/15 Additional Source Comments The information contained in this document represents components of the legal health record. It is not the complete legal health record.[facility]
== END ==
PROVIDERS: PCP Student in an Organized Health Care Education/Training Program; Visit Provider Student in an Organized Health Care Education/Training Program
DX: E11.42 Type 2 diabetes mellitus with diabetic polyneuropathy (principal); I25.118 Atherosclerotic heart disease of native coronary artery with other forms of angina pectoris; G62.9 Polyneuropathy, unspecified; E78.5 Hyperlipidemia, unspecified; I10 Essential (primary) hypertension; N20.0 Calculus of kidney

== ENCOUNTER 2025-07-19 07:13 | Outpatient (REF) | payer MEDICARE, SELFPAY ==
[2024-12-07 13:46] VITALS: BP 118/64; BP 126/50; BMI 37.2
--- OUTSIDE RECORDS SUMMARY | 2025-07-19 07:16 | XMS_ITS | Clinical Summary ---
Author Organization [facility] Address [address] [place] [address] Phone Care Team Providers Care Infantry Indirect Fire Crewmember Name Role Phone Jaxon Coffman MD Primary [...] Medical Devices Not on file Care Teams Infantry Indirect Fire Crewmember Relationship Specialty Start Date End Date Jaxon Coffman MD [address] [place] [address] [place] [address] PCP - General 03/22/15 Additional Source Comments The information contained in this document represents components of the legal health record. It is not the complete legal health record.[facility]
--- OUTSIDE RECORDS SUMMARY | 2025-07-19 07:16 | XMS_ITS | Clinical Summary ---
Author Organization Formerly [facility] Address [address] [place] [address] Care Team Providers Care Editor Managing Newspaper Name Role Phone Jaxon Coffman MD Primary Care Provider [phone] Allergies No known active allergies Medications lisinopril [...] MGD MEDICARE OUT OF NETWORK Care Teams Editor Managing Newspaper Relationship Specialty Start Date End Date Jaxon Coffman MD [address] [place] [address] [place] [address] PCP - General 07/01/18
[2025-07-19 08:09] LABS: Hemoglobin A1C 166.1771 umol/L; Total Hemoglobin (HGBA1C) 3446.9500 umol/L
[2025-07-19 08:26] LABS: Appearance Urine Clear; Glucose Urine UA Negative (Negative); PH 7.0 (5.0-9.0); Specific Gravity - Urine 1.015 (1.005-1.025)
== END 2025-07-19 07:14 | disposition home or self-care (01) ==
LOC: HO.LAB 07:13
PROVIDERS: PCP Student in an Organized Health Care Education/Training Program; Visit Provider Student in an Organized Health Care Education/Training Program
DX: E11.9 Type 2 diabetes mellitus without complications (principal); N20.0 Calculus of kidney; G62.9 Polyneuropathy, unspecified
CPT/HCPCS: 36415; 81003; 83036

== ENCOUNTER 2025-09-05 14:37 | Outpatient (AMB) | payer MEDICARE, SELFPAY ==
[2024-12-07 13:46] VITALS: BP 118/64; BP 126/50; BMI 37.2
[2025-09-05 14:39] VITALS: BP 140/70; PULSE 79; TEMP 36.7; O2SAT 94; BMI 38.0
--- NOTE | 2025-09-05 14:39 | MHC.OFFWIV ---
Intake Vital Signs 09/05/25 14:39 Height 5 ft 10 in Weight 265 lb BMI 38.0 BP 140/70 H Blood Pressure Location Lt brachial Position Sitting Pulse 79 Pulse Source Pulse Oximeter Temp 98.1 F Temp Source Oral Pulse Oximetry (%) 94 Oxygen Delivery Method Room Air Intake Visit Reasons: EP-cough, chills, sinus/chest congestion Intake Note: Severe cough started three days ago, It is productive with yellow in color. He has got sleeplessness with the cough since last Wednesday. Patient Tobacco Use Status: Former Tobacco user Allergies ticagrelor (From Brilinta) Allergy (Severe, Verified 09/05/25 14:51) Claustrophobia Do you need a note to return to daycare/school/sports/work: No HPI HPI Comments History of Present Illness Details History - The patient is an 80-year-old male presenting with respiratory symptoms, including cough, congestion, and shortness of breath x 4 days. - The patient has a history of COPD, which contributes to his chronic respiratory issues and shortness of breath. - The patient reports a history of pneumonia and is concerned about developing it easily. - Denies fevers, ear pain or sinus pain. Has not tried any OTC medications. Has used his nebulizer as needed. - Patient states he usually gets codeine cough syrup from his Computer Lab Aide, Dr Steele and would like it again for his cough. - He tells me he only takes his lorazepam during the day, never in the evening, for a fear of dying. Review of Systems - Respiratory: Reports dyspnea 24/7, worsened over the last four days. Reports cough and congestion. - Cardiovascular: Denies chest pain or orthopnea. - Neurological: Reports anxiety attacks, particularly at night, with symptoms of sweating, chills, and fear of dying. All systems reviewed and are unremarkable except as noted in HPI Physical Exam General: Cooperative, healthy appearing, comfortable and no acute distress Orientation/consciousness: Patient oriented x3 Limitations: No limitations Head: Normal to inspection Ears: Hearing grossly normal bilaterally, external ears normal, EAC's normal bilaterally and TM's normal bilaterally Nose: Normal external nose present, Normal nares present and No nasal discharge present Face and sinus: Normal facial exam and sinuses nontender Mouth: Normal oral and palatal mucosa present and moist mucous membranes Throat: Tonsils normal, no exudates, uvula midline, posterior oropharynx erythema Eyes: Appearance normal, both eyes and all related structures Neck: Normal visual inspection, full ROM Respiratory: Clear to auscultation bilaterally. Normal respiratory effort, able to speak in complete sentences, actively coughing, no respiratory distress, not tachypneic, no tripod positioning and no use of accessory muscles Cardiovascular: Regular rate and rhythm. Normal S1 and S2 Skin: No rashes or lesions noted Neuro: Patient oriented x3 Extremities: Normal to inspection and Yes no clubbing, cyanosis or edema PFSH Medical History Diabetes COPD (chronic obstructive pulmonary disease) Hoarseness Pulmonary nodules Tracheobronchomalacia Pulmonary nodule COPD (chronic obstructive pulmonary disease) Migrated colon stent Hospital-acquired pneumonia Pneumonia Nephrolithiasis Prostate cancer Obesity MAYA (obstructive sleep apnea) Right bundle branch block (RBBB) on electrocardiogram (ECG) Hyperlipidemia HTN (hypertension) Chronic stable angina CAD (coronary artery disease) Surgical History Hx of arthroscopy of knee Hx of lithotripsy Stented coronary artery Hx of cardiac cath Hx laparoscopic cholecystectomy History of basal cell carcinoma (BCC) excision History of carpal tunnel release Hx of hernia repair History of eye surgery Hx of spinal surgery Family History Father CVD (cardiovascular disease) Mother CVD (cardiovascular disease) Brother CVD (cardiovascular disease) Social History Household Members: Spouse Housing: House Are you a primary director of health care marketing to a significant other at home: No Do you presently have visiting nurse or other home services: No Alcohol intake: never Patient Tobacco Use Status: Former Tobacco user Tobacco use type: Cigarette Cigarette Packs Per Day: 1 Cigarettes Per Day: 20.0 Years Smoked: 30+ e-Cigarette/Vaping Use: Former Use Advance Directives Date on File: 07/17/21 service: No Current occupational status: retired Cognitive needs: No Hearing needs: No Vision needs: Yes (rx glasses) Physical Exam Vital Signs: Last Vital Signs Temp 98.1 F 09/05/25 14:39 Pulse 79 09/05/25 14:39 BP 140/70 H 09/05/25 14:39 Pulse Ox 90 L 09/05/25 14:39 Oxygen Delivery Method Room Air 09/05/25 14:39 BMI result Body Mass Index 38.0 Assessment & Plan Assessment & Plan (1) Lower respiratory infection (e.g., bronchitis, pneumonia, pneumonitis, pulmonitis): Code(s): J22 - Unspecified acute lower respiratory infection Plan: Patient was informed and verbally consented to the use of an ambient scribe for clinic note documentation during this visit. - VSS, pt well appearing and PE unremarkable. - Prescribed prednisone for shortness of breath. Pt aware it will affect his blood sugars. - Recommended use of a nebulizer and provided a rescue inhaler for acute symptoms. Sent levalbuterol as albuterol was not covered by his insurance previously. - Advised to monitor symptoms closely and seek further evaluation if symptoms worsen. - Sent viral panel - Sent cough syrup, pt aware not to take lorazepam when using the cough syrup. Orders: Orders Resp Pathogen Panel - [facility] Today J06.9 - Acute upper respiratory infection, unspecified Medications: New codeine-guaifenesin 10-100 mg/5 mL 10 mL PO Q4-6H PRN 120 mL 0RF cold symptoms levalbuterol tartrate 45 mcg/actuation 2 puffs inhalation Q4-6H PRN 15 grams 0RF shortness of breath prednisone 40 mg (2 x 20 mg) PO QAM 10 tabs 0RF Coding Level of Care Code Est Pt Level 3 (73981) Diagnoses Lower respiratory infection (e.g., bronchitis, pneumonia, pneumonitis, pulmonitis) J22
--- OUTSIDE RECORDS SUMMARY | 2025-09-05 20:48 | XMS_ITS | Data Portability ---
Author Organization [place] [facility] Address [address] [address] Care Team Providers Care Software Controls Engineer Name Role Phone CARINE TODD Primary Care [...] Organization Details Last Modified Time Details Appointments None recorded. Lab None recorded. Referral None recorded. Procedures None recorded. Surgeries None recorded. Imaging None recorded. Medication Orders clotrimaz ole-betam ethasone 1 %-0.05 % topical cream 025 025 [facility], [address] [place], [address], 5 08:49:01 Patient TargetsNo targets recorded. Patient InstructionsNo instructions recorded. Reason for Referral None Reported. Problems Name Problem SNOMED Code Status Onset Date Resolution Date Notes Provider Name and Address Organization Details Recorded Time Chronic obstructive pulmonary disease 57255182 Active 2023 MAXIMUS SPRINGER MD [address], [place], [address], [facility] - [facility] 4 09:59:17 Chronic hoarseness 0981158772832 Active 2023 MAXIMUS SPRINGER MD [address] [facility] [address], [facility] [place], [address], [facility] [place] 4 09:59:22 Deviated nasal septum 395359898 Active 2023 MAXIMUS SPRINGER MD [address] [facility] [address], [place], [address], [facility] [place] 4 09:59:44 Chronic non-infecti ve otitis externa 010628096 Active 2023 MAXIMUS SPRINGER MD [address] [facility] [address], [place], [address], [facility] 4 10:00:10 Eczema of external auditory canal 65914427 Active 2024 MAXIMUS SPRINGER MD [address] [facility] [address], [place], [address], [facility] - [facility] 5 08:47:18 Problem Notes None recorded. Procedures Surgical History Date Name Laterality Status Provider Name and Address Organization Details Recorded Time 02/08/20 25 Fiberoptic Laryngoscopy (Comprehensive) completed MAXIMUS VELEZ MD [address] [facility] [place],[address], [address], [facility] - [facility] [place] 02/07/2025 08:47:11 08/03/20 24 Fiberoptic Laryngoscopy (Comprehensive) completed MAXIMUS VELEZ MD 100 [facility],[address], [place], [address], [place] - [facility] [place] 08/03/2024 09:58:07 placement of stent in cardiac conduit completed MAXIMUS VELEZ MD 100 [facility], [place], [address], [place] [facility] 08/03/2024 09:37:30 Imaging Results None recorded. Procedure [...] DAYS.; INSTR: TAKE 1 TABLET ON WEDNESDAY/ DN/ RID). 02/07 completed Not Available Not Available Not [...] Updated DateTime 02/07/2025 175.26 cm 38.4 kg/m2 699229.02 g Melanie Hatch [place] [facility] 02/07/2025 08:37:05 Date Recorded Body height Body mass index (BMI) Body weight Provider Name and Address Organization Details Last Updated DateTime 08/03/2024 180.34 cm 36 kg/m2 988933.83 g Patrick Whyte [place] - [facility] 08/03/2024 09:25:35 Social History Question Answer Notes LastModified by Organizat ion Details LastModified Time Tobacco Smoking Status Former Smoker MAXIMUS VELEZ MD [address] [place] [address], [address], [facility] - [facility] 08/03/2024 09:37:17 When Did You Quit Smoking? [...] Diagnosis SNOMED-CT Code Diagnosis ICD10 Code Diagnosis IMO Codes Diagnosis Note [id number] MAIXMUS ONOFRE MD [facility] [address] [address] 08/03/2024 08:50:08 08/03/2024 10:04:18 Chronic obstructive pulmonary disease 88814903 J44.9 Chronic hoarseness 59725 46785 105 R49.0 Chronic no n-infective otitis externa 764724413 H60.61 Deviated nasal septum 12 4171925 J34.2 [id number] MAXIMUS ONOFRE MD [facility] [address] [place] [address] 02/07/2025 08:29:00 02/07/2025 08:53:48 Eczema of external auditory canal 34543231 H60.549 Chronic hoarseness 69861 50972 105 R49.0 Chronic ob structive pulmonary disease 26319640 J44.9 Health Concerns Section Related Observation LastModified by Organization Detai ls LastModified Time None Recorded Concern Status LastModified by Organization Details LastModified Time None Recorded Advance Directives Directive None Recorded Payers Insurance Date Sequence Insurance Name Policy Number Policy Mills Covered Member ID Mills Member ID Guarantor Name 06/08/2025 1 [employer] - MEDICARE ADVANTAGE PLAN (MEDICARE REPLACEMENT HMO) [id number] Dmitri Darnell [id number] Dmitri Darnell Notes Date Note Type Note Provider Name and Address Organization Details Recorded Time 4 text/html Referred by cable machine operator for hoarseness. Hx of PND on FP nasal. Hx of globus sensationOccasional irritation/moisture right earRemote hx of tobacco use MAXIMUS VELEZ MD [address] [place] [address], [phone], [facility] - [facility] 08/03/2024 10:02:07 5 text/html ROS as noted in the HPI Patient notes that his voice is back to his raspy baseline. 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 He still has some discharge from the ears in the morning. He has had itching of the conchal bowls as well as the postauricular area. Continues on his inhalers for COPD but otherwise has been doing well MAXIMUS VELEZ MD [address] [place] [address], [phone], [facility] - [facility] 02/07/2025 08:50:05
--- OUTSIDE RECORDS SUMMARY | 2025-09-05 20:48 | XMS_ITS | Clinical Summary ---
Author Organization [facility] Address [address] [place] [address] Phone Care Team Providers Care Credit Compliance Officer Name Role Phone Jaxon Coffman MD Primary [...] Medical Devices Not on file Care Teams Credit Compliance Officer Relationship Specialty Start Date End Date Jaxon Coffman MD [address] [place] [address] [place] [address] PCP - General 03/22/15 Additional Source Comments The information contained in this document represents components of the legal health record. It is not the complete legal health record.[facility]
== END 2025-09-05 15:21 | disposition home or self-care (01) ==
PROVIDERS: PCP Student in an Organized Health Care Education/Training Program; Visit Provider Physician Assistant
DX: J22 Unspecified acute lower respiratory infection (principal)

== ENCOUNTER 2025-09-05 14:37 | Outpatient (REF) | payer MEDICARE, SELFPAY ==
[2024-12-07 13:46] VITALS: BP 118/64; BP 126/50; BMI 37.2
--- OUTSIDE RECORDS SUMMARY | 2025-09-05 21:14 | XMS_ITS | Clinical Summary ---
Author Organization [facility] Address [address] [place] [address] Care Team Providers Care Distribution Operations Supervisor Name Role Phone Jaxon Coffman MD Primary Care Provider [phone] Allergies No known active allergies Medications lisinopril [...] Vaccine (1 of 2) 1994 RSV Vaccine 50 years and old er and Patients (1 - 1-dose 75+ series) 2019 Influenza Vaccine 06/15/2025 COVID-19 Vaccine (1 - 2023-2 5 season) 2025 Hepatitis B Vaccines Aged Out No long er eligible based on patient's age to complete this topic Insurance MISC MGD MEDICARE OUT OF NETWORK Care Teams Distribution Operations Supervisor Relationship Specialty Start Date End Date Jaxon Coffman MD [address] [place] [address] [place] [address] PCP - General 07/01/18
[2025-09-06 07:49] LABS: Chlamydia pneumoniae PCR Not Detected (Not Detect.); Coronavirus 229E PCR Not Detected (Not Detect.); Coronavirus HKU1 PCR Not Detected (Not Detect.); Coronavirus NL63 PCR Not Detected (Not Detect.); Coronavirus OC43 PCR Not Detected (Not Detect.); RSV PCR Not Detected (Not Detect.); Rhino/Enterovirus PCR Detected (Not Detect.)
[2025-09-06 08:26] LABS: Influenza A H1 PCR Not Detected (Not Detect.); Influenza A H1-2009 PCR Not Detected (Not Detect.); Influenza A H3 PCR Not Detected (Not Detect.); SARS-CoV-2 PCR Not Detected (Not Detect.)
== END 2025-09-05 14:38 | disposition home or self-care (01) ==
LOC: HO.LAB 14:37
PROVIDERS: Physician Assistant; PCP Student in an Organized Health Care Education/Training Program
DX: J22 Unspecified acute lower respiratory infection (principal); Z87.891 Personal history of nicotine dependence
CPT/HCPCS: 87633; 99212

== ENCOUNTER 2025-09-25 15:25 | Outpatient (REF) | payer MEDICARE, SELFPAY ==
[2024-12-07 13:46] VITALS: BP 118/64; BP 126/50; BMI 37.2
--- NOTE | ~2025-09-25 | US_ITS ---
EXAMINATION: US RETROPERITONEAL LIMITED (RENAL ONLY) CLINICAL INFORMATION: N20.0 - Calculus of kidney. COMPARISON: CT of abdomen/pelvis on August 05, 2024. TECHNIQUE: Real-time imaging of the kidneys. FINDINGS: RIGHT KIDNEY: 11.5 cm in length. Multiple cysts, the largest located in the lower pole and measuring 8.8 x 6.1 x 7.3 cm. No hydronephrosis. No shadowing stones demonstrated. LEFT KIDNEY: 12.2 cm in length. Multiple cysts, the largest measuring 5.1 x 4.0 x 3.8 cm. No hydronephrosis. No shadowing stones demonstrated. US/US renal BI IMPRESSION: No shadowing stones demonstrated in either kidney. Electronically signed by: Nishant Rubio MD 09/26/2025 07:07 AM EST
--- OUTSIDE RECORDS SUMMARY | 2025-09-25 17:04 | XMS_ITS | Data Portability ---
Author Organization [place] [facility], [facility] Address [address] [address] Care Team Providers Care Core Paster Name Role Phone CARINE TODD Primary Care Provider [phone] CARINE TODD Referring Provider NANY STEELE Referring [...] [facility], [address] [place], [address], 5 08:49:01 Patient TargetsNo targets recorded. Patient InstructionsNo instructions recorded. Reason for Referral None Reported. Problems Name Problem SNOMED Code Status Onset Date Resolution Date Notes Provider Name and Address Organization Details Recorded Time Chronic obstructive pulmonary disease 60436863 Active 2023 MAXIMUS SPRINGER MD [address], [place], [address], [facility] - [facility] 4 09:59:17 Chronic hoarseness 8512058441933 Active 2023 MAXIMUS SPRINGER MD [address] [facility] [place], [facility] [place], [address], [facility] [place] 4 09:59:22 Deviated nasal septum 567011338 Active 2023 MAXIMUS SPRINGER MD [address] [facility] [address], [place], [address], [facility] [place] 4 09:59:44 Chronic non-infecti ve otitis externa 185243725 Active 2023 MAXIMUS SPRINGER MD [address] [facility] [address], [place], [address], [facility] 4 10:00:10 Eczema of external auditory canal 03389502 Active 2024 MAXIMUS SPRINGER MD [address] [facility] [place], [place], [address], [facility] - [facility] 5 08:47:18 Problem Notes None recorded. Procedures Surgical History Date Name Laterality Status Provider Name and Address Organization Details Recorded Time 02/08/20 25 Fiberoptic Laryngoscopy (Comprehensive) completed MAXIMUS VELEZ MD [address] [facility] [place], [address], [facility] - [facility] [place] 02/07/2025 08:47:11 08/03/20 24 Fiberoptic Laryngoscopy (Comprehensive) completed MAXIMUS VELEZ MD 100 [facility],[address], [place], [address], [place] [facility] [place] 08/03/2024 09:58:07 placement of stent in cardiac conduit completed MAXIMUS VELEZ MD 100 [facility],[address], [place], [address], [place] [facility] 08/03/2024 09:37:30 Imaging Results None recorded. [...] Updated DateTime 02/07/2025 175.26 cm 38.4 kg/m2 796442.02 g Melanie Hatch [place] [facility] 02/07/2025 08:37:05 Date Recorded Body height Body mass index (BMI) Body weight Provider Name and Address Organization Details Last Updated DateTime 08/03/2024 180.34 cm 36 kg/m2 664134.83 g Patrick Whyte [place] - [facility] 08/03/2024 09:25:35 Social History Question Answer Notes LastModified by Organizat ion Details LastModified Time Tobacco Smoking Status Former Smoker MAXIMUS VELEZ MD [address] [place] [address], [address], [facility] - [facility] 08/03/2024 09:37:17 When Did You Quit [...] ICD10 Code Diagnosis IMO Codes Diagnosis Note [id number] MAXIMUS ONOFRE MD [facility] [address] [address] 08/03/2024 08:50:08 08/03/2024 10:04:18 Chronic obstructive pulmonary disease 09721123 J44.9 Chronic hoarseness 85167 30667 105 R49.0 Chronic no n-infective otitis externa 790241839 H60.61 Deviated nasal septum 12 8531525 J34.2 [id number] MAXIMUS ONOFRE MD [facility] [address] [place] [address] 02/07/2025 08:29:00 02/07/2025 08:53:48 Eczema of external auditory canal 98159452 H60.549 Chronic hoarseness 22512 79361 105 R49.0 Chronic ob structive pulmonary disease 30064001 J44.9 Health Concerns Section Related Observation LastModified by Organization Detai ls LastModified Time None Recorded Concern Status LastModified by Organization Details LastModified Time None Recorded Advance Directives Directive None Recorded Payers Insurance Date Sequence Insurance Name Policy Number Policy Mills Covered Member ID Mills Member ID Guarantor Name 06/08/2025 1 [employer] MEDICARE ADVANTAGE PLAN (MEDICARE REPLACEMENT HMO) [id number] Dmitri Darnell [id number] Dmitri Darnell Notes Date Note Type Note Provider Name and Address Organization Details Recorded Time 4 text/html Referred by web machine tender for hoarseness. Hx of PND on FP nasal. Hx of globus sensationOccasional irritation/moisture right earRemote hx of tobacco use MAXIMUS VELEZ MD [address] [place] [address], [address], [facility] - [facility] 08/03/2024 10:02:07 5 text/html ROS as noted [...] has been doing well MAXIMUS VELEZ MD [address] [place] [address], [address], [facility] - [facility] 02/07/2025 08:50:05
--- OUTSIDE RECORDS SUMMARY | 2025-09-25 17:04 | XMS_ITS | Clinical Summary ---
Author Organization [facility] Address [address] [place] [address] Phone Care Team Providers Care Community Outreach Advocate Name Role Phone Jaxon Coffman MD Primary [...] Medical Devices Not on file Care Teams Community Outreach Advocate Relationship Specialty Start Date End Date Jaxon Coffman MD [address] [place] [address] [place] [address] PCP - General 03/22/15 Additional Source Comments The information contained in this document represents components of the legal health record. It is not the complete legal health record.[facility]
--- OUTSIDE RECORDS SUMMARY | 2025-09-25 17:04 | XMS_ITS | Clinical Summary ---
Author Organization [facility] Address [address] [place] [address] Care Team Providers Care Physician [facility] Name Role Phone Jaxon Coffman MD Primary Care Provider [phone] Allergies No known active allergies Medications lisinopril [...] MGD MEDICARE OUT OF NETWORK Care Teams Physician Loc[facility] Urgent [facility] Relationship Specialty Start Date End Date Jaxon Coffman MD [address] [place] [address] [place] [address] PCP - General 07/01/18
== END 2025-09-25 15:26 | disposition home or self-care (01) ==
LOC: HO.US 15:25
PROVIDERS: PCP Student in an Organized Health Care Education/Training Program; Visit Provider Student in an Organized Health Care Education/Training Program
DX: N20.0 Calculus of kidney (principal)
CPT/HCPCS: 76775

== ENCOUNTER → 2025-09-25 15:27 | Outpatient (BNV) | payer MEDICARE, SELFPAY ==
[2024-12-07 13:46] VITALS: BP 118/64; BP 126/50; BMI 37.2
== END ==
PROVIDERS: PCP Student in an Organized Health Care Education/Training Program; Visit Provider Radiology Body Imaging
DX: N20.0 Calculus of kidney (principal)
CPT/HCPCS: 76775

== ENCOUNTER 2025-10-02 08:42 | Outpatient (AMB) | payer MEDICARE, SELFPAY ==
[2024-12-07 13:46] VITALS: BP 118/64; BP 126/50; BMI 37.2
--- NOTE | 2025-10-02 08:43 | MHC.OFFVIS ---
Vital Signs 10/02/25 08:48 Height 5 ft 10 in Weight 261 lb 0.437 oz BMI 37.4 BP 140/60 H Blood Pressure Location Lt brachial Position Sitting Pulse 96 Pulse Source Pulse Oximeter Intake Visit Reasons: 4 month f/up Technical Mgr Required: No Accompanied by: Self / Same As Patient Allergies ticagrelor (From Brilinta) Allergy (Severe, Verified 09/05/25 14:51) Claustrophobia Medication List - Last Reconciled 10/02/25 by Elver Gale MD allopurinol 100 mg PO DAILY amlodipine 5 mg PO DAILY 90 days aspirin 81 mg PO DAILY atorvastatin 40 mg PO BEDTIME 90 days blood sugar diagnostic (FreeStyle Lite Strips) As directed blood sugar diagnostic (FreeStyle Lite Strips) Test four times a day or as directed. blood-glucose meter (FreeStyle Lite Meter kit) As Directed clopidogrel 75 mg PO DAILY flash glucose scanning reader (OpendiscStyle Jacinta 14 Day [place]) As directed fluticasone propion-salmeterol 232-14 mcg/actuation 1 inh inhalation BID 30 days gabapentin 300 mg PO TID lancets (FreeStyle Lancets) Test four times a day or as directed. lancets (FreeStyle Lancets) As directed levalbuterol tartrate 45 mcg/actuation 2 puffs inhalation Q4-6H PRN lorazepam mg PO BID PRN metformin 500 mg PO BIDWMEAL metoprolol succinate ER 50 mg PO DAILY nitroglycerin 0.4 mg sublingual Q5M PRN prednisone 40 mg (2 x 20 mg) PO QAM valsartan 40 mg PO DAILY 90 days HPI Comments Details: Dmitri comes for follow-up. Patient underwent balloon angioplasty of mid LAD lesion only partially successful result. He continues to have exertional chest discomfort feels like mild pressure/tightness in his chest pauses sometimes get these symptoms at rest. He is currently taking his dual antiplatelet therapy. However he has significant symptoms exertional shortness of breath as well as fatigue. [facility] Medical History Diabetes COPD (chronic obstructive pulmonary disease) Hoarseness Pulmonary nodules Tracheobronchomalacia Pulmonary nodule COPD (chronic obstructive pulmonary disease) Migrated colon stent Hospital-acquired pneumonia Pneumonia Nephrolithiasis Prostate cancer Obesity MAYA (obstructive sleep apnea) Right bundle branch block (RBBB) on electrocardiogram (ECG) Hyperlipidemia HTN (hypertension) Chronic stable angina CAD (coronary artery disease) Surgical History Hx of arthroscopy of knee Hx of lithotripsy Stented coronary artery Hx of cardiac cath Hx laparoscopic cholecystectomy History of basal cell carcinoma (BCC) excision History of carpal tunnel release Hx of hernia repair History of eye surgery Hx of spinal surgery Family History Father CVD (cardiovascular disease) Mother CVD (cardiovascular disease) Brother CVD (cardiovascular disease) Social History Household Members: Spouse Housing: House Are you a primary professional healthcare representative to a significant other at home: No Do you presently have visiting nurse or other home services: No Alcohol intake: never Patient Tobacco Use Status: Former Tobacco user Tobacco use type: Cigarette Cigarette Packs Per Day: 1 Cigarettes Per Day: 20.0 Years Smoked: 30+ e-Cigarette/Vaping Use: Former Use Advance Directives Date on File: 07/17/21 service: No Current occupational status: retired Cognitive needs: No Hearing needs: No Vision needs: Yes (rx glasses) Review of Systems Const Denies chills, Denies fatigue, Denies fever(s), Denies frequent falls, Denies weakness, Denies weight gain and Denies weight loss ENT Denies dizziness Card Denies chest pain, Denies leg edema, Denies lightheadedness, Denies palpitations, Denies dyspnea and Denies dyspnea on exertion Resp Denies cough, Denies dyspnea and Denies dyspnea on exertion GI Denies hematochezia Musc Denies abnormal gait, Denies muscle weakness, Denies numbness, Denies radiating pain into limb and Denies tingling Neuro Denies abnormal gait, Denies dizziness, Denies frequent falls, Denies numbness, Denies tingling and Denies weakness Endo Denies fatigue and Denies palpitations Physical Exam Vital Signs: Last Vital Signs Pulse 96 10/02/25 08:48 BP 140/60 H 10/02/25 08:48 BMI result Body Mass Index 37.4 Const General: cooperative, comfortable, no acute distress, alert and awake Nutritional Appearance: obese Orientation/consciousness: patient oriented x3 Limitations: no limitations Neck Neck: Yes trachea midline, Yes supple and Yes no JVD Chest Chest palpation & inspection: normal inspection of the chest Resp Effort & Inspection: normal respiratory effort Auscultation: no rhonchi, no wheezes and diminished lung sounds Cardio Jugular venous distension: no JVD Palpation: normal PMI Rate: regular rate Rhythm: regular rhythm Heart sounds: S1 normal heart sound present and S2 normal heart sound present GI Auscultation: normal bowel sounds Skin General skin exam: no rashes or lesions noted Neuro General: patient oriented x3 and no focal motor deficits Extrem General: Yes no clubbing, cyanosis or edema Psych Appearance: grossly normal Assessment & Plan Assessment & Plan (1) CAD (coronary artery disease): Comment: s/p PCI x 2 stents 04/05 - Continue current regimen including atorvastatin and Plavix. Code(s): I25.10 - Atherosclerotic heart disease of [place] coronary artery without angina pectoris Category: Medical Qualifiers: Associated angina: with other forms of angina Coronary Disease-Associated Artery/Lesion type: unspecified vessel or lesion type [place] vs. transplanted heart: unspecified whether [place] or transplanted heart Qualified Code(s): I25.118 - Atherosclerotic heart disease of [place] coronary artery with other forms of angina pectoris Plan: CAD with prior drug-eluting stents to circumflex and RCA which on recent cardiac catheterization were within normal limits with calcified lesion in his mid LAD which was only treated with balloon angioplasty. Continues to have recurrent symptoms. He is currently on dual antianginal therapy. Discussed that has symptoms of fatigue and probably shortness of breath are not related to his coronary disease but exertional chest tightness could be and would benefit from further evaluation PCI. He is currently on dual antianginal therapy with amlodipine as well as metoprolol therapy. I think he would benefit from repeat evaluation of his coronary anatomy remains LAD with complex intervention including atherectomy and stent placement. He would also benefit after that with phase 2 cardiac rehabilitation. For now continue dual antiplatelet therapy. Continue aggressive risk factor modification. He would benefit from GLP 1 antagonist and have taken the liberty to prescribe the same. (2) HTN (hypertension): Comment: - Continue current antihypertensive regimen including amlodipine, metoprolol, and valsartan. - Refill valsartan prescription was provided based on patient's report of running out. Code(s): I10 - Essential (primary) hypertension Category: Medical Plan: Hypertension which is currently well optimized. Advised to monitor blood pressure at home maintain a log. Goal blood pressure less than 130/84. Low-salt diet was discussed. Encouraged to maintain activity level as tolerated. I think he would benefit from weight loss program overall. Will follow up in the clinic in 2 months time, sooner PRN. Thank you for allowing me to partake in his care Orders: Orders Prothrombin Time INR Today I25.118 - Atherosclerotic heart disease of [place] coronary artery with other forms of angina pectoris Complete Blood Count no Diff Today I25.118 - Atherosclerotic heart disease of [place] coronary artery with other forms of angina pectoris Basic Metabolic Panel Today I25.118 - Atherosclerotic heart disease of [place] coronary artery with other forms of angina pectoris Cardiac Cath LT w PCI 1 Month I25.118 - Atherosclerotic heart disease of [place] coronary artery with other forms of angina pectoris Coding Level of Care Code Est Pt Level 4 (41310) Complex EM visit Add On G2211 Diagnoses Coronary artery disease with other form of angina pectoris, unspecified vessel or lesion type, unspecified whether [place] or transplanted heart I25.118 Associated angina: with other forms of angina Coronary Disease-Associated Artery/Lesion type: unspecified vessel or lesion type [place] vs. transplanted heart: unspecified whether [place] or transplanted heart HTN (hypertension) I10
[2025-10-02 08:48] VITALS: BP 140/60; PULSE 96; BMI 37.4
== END 2025-10-02 09:15 | disposition home or self-care (01) ==
PROVIDERS: PCP Student in an Organized Health Care Education/Training Program; Visit Provider Internal Medicine Cardiovascular Disease
DX: I25.118 Atherosclerotic heart disease of native coronary artery with other forms of angina pectoris (principal); I10 Essential (primary) hypertension
CPT/HCPCS: 99214; G2211

== ENCOUNTER → 2025-10-02 08:42 | Outpatient (BNVA) | payer MEDICARE, SELFPAY ==
[2024-12-07 13:46] VITALS: BP 118/64; BP 126/50; BMI 37.2
== END ==
PROVIDERS: PCP Internal Medicine; Visit Provider Internal Medicine Cardiovascular Disease
DX: I25.118 Atherosclerotic heart disease of native coronary artery with other forms of angina pectoris (principal); I11.9 Hypertensive heart disease without heart failure; Z79.899 Other long term (current) drug therapy; Z87.891 Personal history of nicotine dependence
CPT/HCPCS: 99212

== ENCOUNTER → 2025-10-23 23:59 | Outpatient (BNV) | payer MEDICARE, SELFPAY ==
[2024-12-07 13:46] VITALS: BP 118/64; BP 126/50; BMI 37.2
== END ==
PROVIDERS: PCP Student in an Organized Health Care Education/Training Program; Visit Provider Internal Medicine Cardiovascular Disease
DX: I25.118 Atherosclerotic heart disease of native coronary artery with other forms of angina pectoris (principal)
CPT/HCPCS: 92933; 92972; 92978; 93458; 99152

== ENCOUNTER 2025-11-07 07:55 | Outpatient (AMB) | payer MEDICARE, SELFPAY ==
[2024-12-07 13:46] VITALS: BP 118/64; BP 126/50; BMI 37.2
--- NOTE | 2025-11-07 07:59 | MHC.PC.OV ---
Vital Signs 11/07/25 08:01 Height 5 ft 10 in Weight 258 lb 4 oz BMI 37.1 BP 110/60 Blood Pressure Location Rt brachial Position Sitting Respiration 16 Pulse 77 Pulse Source Pulse Oximeter Temp 96.9 F Temp Source Temporal Artery Scan Pulse Oximetry (%) 92 Oxygen Delivery Method Room Air Intake Visit Reasons: TCM [facility] Stent 10/23/25 Database Support Required: No Accompanied by: Self / Same As Patient Allergies ticagrelor (From Brilinta) Allergy (Severe, Verified 11/07/25 08:00) Claustrophobia Medication List - Last Reconciled 11/07/25 by Harmeet Shaw MD allopurinol 100 mg PO DAILY amlodipine 5 mg PO DAILY 90 days aspirin 81 mg PO DAILY atorvastatin 40 mg PO BEDTIME 90 days blood sugar diagnostic (FreeStyle Lite Strips) As directed blood sugar diagnostic (FreeStyle Lite Strips) Test four times a day or as directed. clopidogrel 75 mg PO DAILY fluticasone propion-salmeterol 232-14 mcg/actuation 1 inh inhalation BID 30 days gabapentin 300 mg PO TID lancets (FreeStyle Lancets) Test four times a day or as directed. lancets (FreeStyle Lancets) As directed levalbuterol tartrate 45 mcg/actuation 2 puffs inhalation Q4-6H PRN lorazepam mg PO BID PRN metformin 500 mg PO DAILY metoprolol succinate ER 50 mg PO DAILY nitroglycerin 0.4 mg sublingual Q5M PRN semaglutide (Ozempic) 0.25 mg (0.368 mL) subcut QWEEK valsartan 40 mg PO DAILY 90 days Tobacco use date assessed: 04/02/25 Fall risk assessment: No Falls in past year Last assessed Fall Risk: 11/07/25 Dental Screening Dental Screen Date: 04/02/25 HPI HPI Comments History of Present Illness Details History of Present Illness The patient is an 80 year old male presenting for follow-up after a recent cardiac procedure and for medication management. He has a history of coronary artery disease with prior stent placement. He was previously referred for bypass surgery, but after a second angiogram at [facility], another stenting procedure was performed instead, which he states didn't work. More recently, he experienced dyspnea and pain, which he attributes to weight gain and inactivity. This led to another cardiac procedure via the groin, which involved atherectomy and placement of a new implant. Post-procedure, he was seen by a specialist who recommended cardiac rehabilitation and a follow-up visit with his primary care provider. The patient is currently appealing an insurance denial for cardiac rehab coverage. Regarding his type 2 diabetes, the patient was recently prescribed Ozempic but was unsure how to use the pen and had previously wasted one dose. His HbA1c in July was 6.6%, down from 6.7%. He reports episodes of symptomatic hypoglycemia with blood glucose readings as low as 87-93 mg/dL, which he treats with a peanut butter sandwich cracker. The patient also reports pain on the sides of his belly, particularly when rising from a seated position, which is attributed to muscular weakness. An imaging study for his kidneys revealed multiple benign cysts which are planned for annual monitoring, with no evidence of kidney stones. He notes that his ankles swell if he consumes too much salt. His BMI is 37. He acknowledges being sedentary and faces barriers to exercise, such as a lack of sidewalks in his neighborhood and financial constraints for a gym or treadmill, though he is working on getting into cardiac rehab. Medical History: - Coronary artery disease - Type 2 diabetes mellitus - Hypertension - Hyperlipidemia - Obesity - Gout - Chronic Obstructive Pulmonary Disease (COPD) - Peripheral neuropathy - Benign renal cysts Surgical History: - Coronary artery stenting, multiple procedures - Coronary atherectomy Medications: - Allopurinol 100 mg once a day for gout - Amlodipine 5 mg once a day for hypertension - Aspirin 81 mg once a day for coronary artery disease - Atorvastatin 40 mg once a day for hyperlipidemia - Clopidogrel (Plavix) 75 mg once a day for coronary artery stent - Fluticasone inhaler for COPD - Gabapentin 300 mg three times a day for peripheral neuropathy - Levalbuterol inhaler for COPD - Metformin 500 mg twice a day for type 2 diabetes - Metoprolol succinate 50 mg once a day for hypertension and heart condition - Valsartan 40 mg once a day for hypertension and heart condition Diagnostic Results: - Labs: HbA1c was 6.6% as of July, previously 6.7%. - Imaging: Kidney imaging showed multiple benign cysts and no evidence of kidney stones. - Procedures: A recent angiogram was performed prior to his latest stenting. Social History - Marital Status/Family: The patient is and has five children, eleven grandchildren, and one great-grandchild. - Employment: He is retired for 22 years and is on a fixed income from a pension and Social Security. - Diet: He reports his ankles swell with high salt intake and has given up some foods like baloney sandwiches. - Exercise: The patient is currently sedentary but acknowledges the need to be more active. - Functional Status: He describes himself as not being steady on his feet. [facility] Medical History (Updated 11/07/25 @ 08:38 by Harmeet Shaw MD) Flank pain Benign cyst of kidney Diabetes COPD (chronic obstructive pulmonary disease) Hoarseness Pulmonary nodules Tracheobronchomalacia Pulmonary nodule COPD (chronic obstructive pulmonary disease) Migrated colon stent Hospital-acquired pneumonia Pneumonia Nephrolithiasis Prostate cancer Obesity MAYA (obstructive sleep apnea) Right bundle branch block (RBBB) on electrocardiogram (ECG) Hyperlipidemia HTN (hypertension) Chronic stable angina CAD (coronary artery disease) Surgical History Hx of arthroscopy of knee Hx of lithotripsy Stented coronary artery Hx of cardiac cath Hx laparoscopic cholecystectomy History of basal cell carcinoma (BCC) excision History of carpal tunnel release Hx of hernia repair History of eye surgery Hx of spinal surgery Family History Father CVD (cardiovascular disease) Mother CVD (cardiovascular disease) Brother CVD (cardiovascular disease) Social History Household Members: Spouse Housing: House Are you a primary care professionals to a significant other at home: No Do you presently have visiting nurse or other home services: No Alcohol intake: never Patient Tobacco Use Status: Former Tobacco user Tobacco use type: Cigarette Cigarette Packs Per Day: 1 Cigarettes Per Day: 20.0 Years Smoked: 30+ Packs Per Year: 0 Packs per year/per ci.00 e-Cigarette/Vaping Use: Former Use Advance Directives Date on File: 07/17/21 service: No Current occupational status: retired Cognitive needs: No Hearing needs: No Vision needs: Yes (rx glasses) Questionnaire PHQ-9 Over the last 2 weeks, how often have you been bothered by any of the following problems? Depression Screening Interpretation: Negative Depression Screening Done: Yes Source: Developed by Drs. Dmitri Martin, Aleja Oglesby, Patrick Long and colleagues, with an educational tim from [employer] Thrive Questionnaire Date Thrive assessed: 04/02/25 AUDIT C Alcohol Use Questionnaire (AUDIT-C) 1. How often do you have a drink containing alcohol?: Monthly or less 2. How many drinks containing alcohol do you have on a typical day when you are drinking?: 1 or 2 3. How often do you have six or more drinks on one occasion?: Never Total Score: 1 TALIA-7 AMB Questionnaire TALIA-7 Date TALIA - 7 assessed: 04/02/25 Source: Developed by Drs. Dmitri Martin, Aleja Oglesby, Patrick Long and colleagues, with an educational tim from [employer] Review of Systems Narrative Review of Systems - Constitutional: Reports no acute complaints. - Cardiovascular: Reports a history of pain, but denies current symptoms. - Respiratory: Reports a history of dyspnea. - Musculoskeletal: Reports pain on the sides of his abdomen when standing up from a sitting position. - Endocrine: Reports feeling lightheaded with low blood sugar readings. - Integumentary: Reports significant bruising after his recent groin procedure. - Peripheral Vascular: Reports ankle swelling with high salt intake. - Neurological: Reports a history of peripheral neuropathy. - Genitourinary/Gastrointestinal: Reports history of pain in his right kidney area but denies other symptoms. All systems reviewed & are unremarkable except as reviewed in HPI and above Physical exam (Primary Care) Vital Signs: Last Vital Signs Temp 96.9 F 11/07/25 08:01 Pulse 77 11/07/25 08:01 Resp 16 11/07/25 08:01 BP 110/60 11/07/25 08:01 Pulse Ox 92 11/07/25 08:01 Oxygen Delivery Method Room Air 11/07/25 08:01 Care Plan Goal for BP management: In goal BMI result Body Mass Index 37.1 Tobacco/Smoking Status: Tobacco use Status Tobacco use date assessed 04/02/25 11/07/25 08:08 Patient Tobacco Use Status Former Tobacco user 11/07/25 08:08 Tobacco use type Cigarette 11/07/25 08:08 e-Cigarette/Vaping Use Former Use 11/07/25 08:08 Depression Screening Interpretation: Negative Thrive Assessment: Date of Thrive Assessment Date Thrive assessed 04/02/25 11/07/25 08:08 Narrative Physical Exam General: +Alert and oriented, Well nourished, No acute distress. Eye: Pupils are equal, round and reactive to light, Intact accommodation, Extraocular movements are intact, Normal conjunctiva, Vision unchanged. HENT: Normocephalic, Atraumatic, Tympanic membranes are clear, Normal hearing, Oral mucosa is moist, No pharyngeal erythema, Ear canals patent. Respiratory: Lungs CTA bilaterally, No wheeze, Respirations are non-labored. Cardiovascular: Regular rate, Regular rhythm, S1 auscultated, S2 auscultated, No murmur, Good pulses equal in all extremities, Normal peripheral perfusion, No edema. Gastrointestinal: Soft, Non-tender, Non-distended, Normal bowel sounds, No organomegaly. Musculoskeletal: Normal range of motion, Normal strength, No tenderness, No swelling, No deformity, Normal gait. Integumentary: Warm, Dry, [place], Intact, Bruising noted on the abdomen due to anticoagulation therapy. Neurologic: Alert, Oriented, Normal sensory, Normal motor function, No focal defects, Cranial Nerves II-XII are grossly intact, Normal deep tendon reflexes. Psychiatric: Cooperative, Appropriate mood & affect, Normal judgment. Coding Level of Care Code Est Pt Level 4 (13571) Add On Problem Visit Only Diagnoses Type 2 diabetes mellitus with diabetic polyneuropathy, without long-term current use of insulin E11.42 Diabetes mellitus type: type 2 Diabetes mellitus custodial insulin use: without regional intermodal truck driver use Diabetes mellitus complication status: with neurologic complications Diabetes mellitus complication detail: with polyneuropathy Coronary artery disease with other form of angina pectoris, unspecified vessel or lesion type, unspecified whether [place] or transplanted heart I25.118 Coronary Disease-Associated Artery/Lesion type: unspecified vessel or lesion type Ruby vs. transplanted heart: unspecified whether [place] or transplanted heart Associated angina: with other forms of angina Class 2 severe obesity due to excess calories with serious comorbidity and body mass index (BMI) of 37.0 to 37.9 in adult E66.812; Z68.37 Obesity type: due to excess calories Obesity classification: adult class 2 (BMI 35 - 39.9) Serious obesity comorbidity presence: with serious comorbidity Body mass index: BMI 37.0-37.9 Benign cyst of kidney N28.1 Left flank pain R10.A2 Laterality: left Hyperlipidemia, unspecified hyperlipidemia type E78.5 Hyperlipidemia type: unspecified Assessment & Plan Assessment & Plan (1) Diabetes: Comment: - The patient's HbA1c is 6.6%, which indicates good control, especially for his age. - However, he reports symptomatic hypoglycemia. - The plan is to start Ozempic 0.25 mg weekly to improve glycemic control, promote weight loss, and provide cardiovascular protection. - The first dose was administered in-office with education. - To mitigate hypoglycemia, metformin will be reduced from 500 mg twice daily to once daily. Code(s): E11.9 - Type 2 diabetes mellitus without complications Category: Medical Qualifiers: Diabetes mellitus type: type 2 Diabetes mellitus custodial insulin use: without regional intermodal truck driver use Diabetes mellitus complication status: with neurologic complications Diabetes mellitus complication detail: with polyneuropathy Qualified Code(s): E11.42 - Type 2 diabetes mellitus with diabetic polyneuropathy (2) CAD (coronary artery disease): Comment: - The patient is post-atherectomy and stenting for symptoms including dyspnea and chest pain. - He will continue dual antiplatelet therapy with aspirin and clopidogrel. - He is strongly encouraged to pursue cardiac rehabilitation as recommended by his woven paper hat mender. Code(s): I25.10 - Atherosclerotic heart disease of [place] coronary artery without angina pectoris Category: Medical Qualifiers: Coronary Disease-Associated Artery/Lesion type: unspecified vessel or lesion type Ruby vs. transplanted heart: unspecified whether [place] or transplanted heart Associated angina: with other forms of angina Qualified Code(s): I25.118 - Atherosclerotic heart disease of [place] coronary artery with other forms of angina pectoris (3) Obesity: Comment: - With a BMI of 37, obesity is a significant contributor to his comorbidities. - The initiation of Ozempic is expected to assist with weight loss. - Counseled on the importance of increasing physical activity and making dietary changes, such as reducing salt and carbohydrate intake. Code(s): E66.9 - Obesity, unspecified Category: Medical Qualifiers: Obesity type: due to excess calories Obesity classification: adult class 2 (BMI 35 - 39.9) Serious obesity comorbidity presence: with serious comorbidity Body mass index: BMI 37.0-37.9 Qualified Code(s): E66.812 - Obesity, class 2; Z68.37 - Body mass index [BMI] 37.0-37.9, adult (4) Benign cyst of kidney: Comment: - The patient was reassured that the multiple cysts found on imaging are benign. - The plan is to monitor with repeat imaging in one year. Code(s): N28.1 - Cyst of kidney, acquired Category: Medical (5) Flank pain: Comment: - The patient's reported flank and abdominal pain upon standing is assessed as muscular in origin, likely due to deconditioning. - Improvement is expected with increased physical activity. Code(s): R10.A0 - Flank pain, unspecified side Category: Medical Qualifiers: Laterality: left Qualified Code(s): R10.A2 - Flank pain, left side (6) Hyperlipidemia: Comment: - Continue Statin Code(s): E78.5 - Hyperlipidemia, unspecified Category: Medical Qualifiers: Hyperlipidemia type: unspecified Qualified Code(s): E78.5 - Hyperlipidemia, unspecified Plan: Health Maintenance: - Counseled on increasing physical activity, including pursuing cardiac rehabilitation, joining a gym, or walking regularly to improve weight, diabetes control, and cardiovascular health. - Discussed dietary modifications, including a low-salt and low-carbohydrate diet. - Scheduled follow-up imaging for benign renal cysts in one year. Patient was informed and verbally consented to the use of an ambient scribe for clinic note documentation during this visit. Plan I addressed the patient's concerns regarding his recent cardiac procedure, explaining that the significant bruising he experienced was a result of the necessary anticoagulation therapy used during the intervention. We reviewed his kidney imaging, and I reassured him that the multiple cysts identified are benign and that we will simply monitor them with repeat imaging in one year. A primary focus of our visit was his diabetes management. Given his good HbA1c of 6.6% but reports of symptomatic hypoglycemia, I recommended starting Ozempic 0.25 mg weekly for its benefits on glycemic control, weight loss, and cardiovascular protection. I administered the first dose in the office and provided thorough education on self-administration. To reduce his risk of low blood sugar, I instructed him to decrease his metformin dose to once daily. I strongly emphasized the critical need for increased physical activity and dietary changes to manage his obesity and improve his overall health, reinforcing the recommendation for cardiac rehabilitation. Medications: Changed From metformin 500 mg PO BID 180 tabs 1RF To metformin 500 mg PO DAILY 90 tabs 1RF Patient Instructions: - Begin taking Ozempic 0.25 mg once a week, every Wednesday. - Keep your Ozempic pen in the refrigerator. - Reduce your Metformin dose to one 500 mg pill once a day. - It is very important to increase your physical activity. - Follow up with the cardiac rehabilitation program that your heart doctor recommended. - We will check on the cysts in your kidneys again with imaging in one year; they are not a concern at this time. - Continue to make healthy dietary choices, such as limiting salt, sweets, pastas, and breads. - You may feel a little nauseous for the next few days as your body gets used to the Ozempic.
[2025-11-07 08:01] VITALS: BP 110/60; PULSE 77; RESP 16; TEMP 36.1; O2SAT 92; BMI 37.1
--- OUTSIDE RECORDS SUMMARY | 2025-11-07 08:02 | XMS_ITS | Clinical Summary ---
Author Organization Formerly [facility] Address [address] [place] [address] Care Team Providers Care Glove Boarder Name Role Phone Jaxon Coffman MD Primary Care Provider [phone] Allergies No known active allergies Medications lisinopril [...] Influenza Vaccine 06/15/2025 COVID-19 Vaccine (1 - 2024-2 6 season) 2025 Hepatitis B Vaccines Aged Out No long er eligible based on patient's age to complete this topic Insurance MISC MGD MEDICARE OUT OF NETWORK Care Teams Glove Boarder Relationship Specialty Start Date End Date Jaxon Coffman MD [address] [place] [address] [place] [address] PCP - General 07/01/18
--- OUTSIDE RECORDS SUMMARY | 2025-11-07 08:02 | XMS_ITS | Data Portability ---
Author Organization MD - [facility], Allergy Address [address] [address] Care Team Providers Care Ribbon Hand Name Role Phone CARINE TODD Primary Care Provider CARINE TODD Referring Provider [phone] NANY STEELE Referring Provider Assessment Encounter Date [...] [facility], [address] [place], [address], 5 08:49:01 Patient TargetsNo targets recorded. Patient InstructionsNo instructions recorded. Reason for Referral None Reported. Problems Name Problem SNOMED Code Status Onset Date Resolution Date Notes Provider Name and Address Organization Details Recorded Time Chronic obstructive pulmonary disease 74909497 Active 2023 MAXIMUS SPRINGER MD [address] [place], [place], [address], [facility] - [facility] 4 09:59:17 Chronic hoarseness 9901493425121 Active 2023 MAXIMUS SPRINGER MD [facility] [place], [place], [address], [facility] - [facility] [place] 4 09:59:22 Deviated nasal septum 976129119 Active 2023 MAXIMUS SPRINGER MD [address] [facility] [place], [place], [address], [facility] [place] 4 09:59:44 Chronic non-infecti ve otitis externa 553082005 Active 2023 MAXIMUS SPRINGER MD [address] [facility] [place], [place], [address], [facility] 4 10:00:10 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 Procedures Surgical History Date Name Laterality Status Provider Name and Address Organization Details Recorded Time 02/08/20 25 Fiberoptic Laryngoscopy (Comprehensive) completed MAXIMUS VELEZ MD [facility] [place],[address], [address], [facility] - [facility] [place] 02/07/2025 08:47:11 08/03/20 24 Fiberoptic Laryngoscopy (Comprehensive) completed MAXIMUS VELEZ MD 100 [facility], [place], [address], [place] - [facility] 08/03/2024 09:58:07 placement of stent in cardiac conduit completed MAXIMUS VELEZ MD 100 [facility],[address], [place], [address], [place] - [facility] 08/03/2024 09:37:30 Imaging Results None recorded. Procedure [...] Updated DateTime 02/07/2025 175.26 cm 38.4 kg/m2 299205.02 g Melanie Hatch MD - [facility] 02/07/2025 08:37:05 Date Recorded Body height Body mass index (BMI) Body weight Provider Name and Address Organization Details Last Updated DateTime 08/03/2024 180.34 cm 36 kg/m2 054419.83 g Patrick Whyte [place] - [facility] 08/03/2024 09:25:35 Social History Question Answer Notes LastModified by Organizat ion Details LastModified Time Tobacco Smoking Status Former Smoker MAXIMUS VELEZ MD [address] [place] [address], [phone], [facility] - [facility] 08/03/2024 09:37:17 When Did You Quit Smoking? [...] ICD10 Code Diagnosis IMO Codes Diagnosis Note [id number] MAXIMUS ONOFRE MD [facility] [address] [address] 08/03/2024 08:50:08 08/03/2024 10:04:18 Chronic obstructive pulmonary disease 97914444 J44.9 Chronic hoarseness 44670 79280 105 R49.0 Chronic no n-infective otitis externa 444675261 H60.61 Deviated nasal septum 12 0191041 J34.2 [id number] MAXIMUS ONOFRE MD [facility] [address] [place] [address] 02/07/2025 08:29:00 02/07/2025 08:53:48 Eczema of external auditory canal 64362668 H60.549 Chronic hoarseness 40687 10213 105 R49.0 Chronic ob structive pulmonary disease 86041892 J44.9 Health Concerns Section Related Observation LastModified by Organization Detai ls LastModified Time None Recorded Concern Status LastModified by Organization Details LastModified Time None Recorded Advance Directives Directive None Recorded Payers Insurance Date Sequence Insurance Name Policy Number Policy Mills Covered Member ID Mills Member ID Guarantor Name 06/08/2025 1 [employer] - MEDICARE ADVANTAGE PLAN (MEDICARE REPLACEMENT HMO) [id number] Dmitri Darnell [id number] Dmitri Darnell Notes Date Note Type Note Provider Name and Address Organization Details Recorded Time 4 text/html Referred by pneumatic tool operator for hoarseness. Hx of PND on FP nasal. Hx of globus sensationOccasional irritation/moisture right earRemote hx of tobacco use MAXIMUS VELEZ MD [address] [place] [address], [phone], [facility] - [facility] 08/03/2024 10:02:07 5 text/html ROS as noted [...] has been doing well MAXIMUS VELEZ MD [address] [place] [address], [phone], [facility] - [facility] 02/07/2025 08:50:05
--- OUTSIDE RECORDS SUMMARY | 2025-11-07 08:02 | XMS_ITS | Clinical Summary ---
Author Organization [facility] Address [address] [place] [address] Phone Care Team Providers Care Drug Safety Scientist Name Role Phone Jaxon Coffman MD Primary [...] Medical Devices Not on file Care Teams Drug Safety Scientist Relationship Specialty Start Date End Date Jaxon Coffman MD [address] [place] [address] [place] [address] PCP - General 03/22/15 Additional Source Comments The information contained in this document represents components of the legal health record. It is not the complete legal health record.[facility]
== END 2025-11-07 08:28 | disposition home or self-care (01) ==
LOC: HO.HMCHD 07:56
PROVIDERS: PCP Student in an Organized Health Care Education/Training Program; Visit Provider Student in an Organized Health Care Education/Training Program
DX: E11.42 Type 2 diabetes mellitus with diabetic polyneuropathy (principal); I25.118 Atherosclerotic heart disease of native coronary artery with other forms of angina pectoris; E66.812 Obesity, class 2; Z68.37 Body mass index [BMI] 37.0-37.9, adult; N28.1 Cyst of kidney, acquired; R10.A2 Flank pain, left side; E78.5 Hyperlipidemia, unspecified

== ENCOUNTER → 2025-11-07 07:55 | Outpatient (BNVA) | payer MEDICARE, SELFPAY ==
[2024-12-07 13:46] VITALS: BP 118/64; BP 126/50; BMI 37.2
== END ==
PROVIDERS: PCP Student in an Organized Health Care Education/Training Program; Visit Provider Student in an Organized Health Care Education/Training Program
DX: E11.42 Type 2 diabetes mellitus with diabetic polyneuropathy (principal); I25.118 Atherosclerotic heart disease of native coronary artery with other forms of angina pectoris; E66.812 Obesity, class 2; Z68.37 Body mass index [BMI] 37.0-37.9, adult; N28.1 Cyst of kidney, acquired; R10.A2 Flank pain, left side; E78.5 Hyperlipidemia, unspecified; Z79.899 Other long term (current) drug therapy
CPT/HCPCS: 99212